=== PATIENT | female | born 2000 | race Caucasian/White ===

== ENCOUNTER 2023-06-17 17:43 | Emergency (ER) | payer MEDICAID, SELFPAY ==
[2023-06-17 17:44] VITALS: BP 174/92; PULSE 106; RESP 26; TEMP 36.4; O2SAT 99; BMI 52.3
[2023-06-17 17:53] VITALS: PULSE 101; RESP 23
--- NOTE | 2023-06-17 17:55 | ECG_ITS ---
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
--- NOTE | 2023-06-17 17:57 | ED.PSYCH1 ---
HPI - Psych General Chief Complaint: Psychiatric Symptoms Stated Complaint: Suicidal Time Seen by Provider: 06/17/23 17:51 Source: Reports patient and caregiver Mode of arrival: ambulance Limitations: Reports no limitations History of Present Illness HPI Narrative: patient sent from a long-term after she told staff that she is suicidal. Her plan is to slit my throat and cut myself . She cannot tell me what set these feelings off. During the interview she also said that she had thoughts of hurting her roommate. She denied injuring herself or others and did not take excessive meds. She sees [facility] for her psychiatric needs. No recent injury or illness. [facility] Social History Smoking status: Never smoker Exam Narrative Exam Narrative: Nurses notes and vital signs reviewed and patient is not hypoxic. afebrile General: Well-appearing and in no apparent distress. Skin: Warm, dry, no pallor noted. No rash. Head: Normocephalic, atraumatic. Neck: Supple, non-tender. Eye: Pupils are equal, round and EOMI. No scleral icterus. Ears, Nose, Mouth, and Throat: Oral mucosa is moist, no facial injury Cardiovascular: Regular Rate and Rhythm without murmur, gallop or rub. Respiratory: No accessory muscle use or respiratory distress. Lungs are clear to auscultation, no wheezing, rales or rhonchi Back: No midline thoracic or lumbar vertebral tenderness. No CVA tenderness Musculoskeletal: normal ROM, no calf or popliteal tenderness, no lower extremity edema/swelling GI: Abdomen is soft, non-distended. Normal bowel sounds. No tenderness to palpation. No rebound, guarding, or rigidity noted. Neurological: A&O x4. No cranial nerve dysfunction observed. No truncal ataxia. Moves all extremities. Sensation intact. Psychiatric: Cooperative and interactive. Normal mood and affect. Constitutional Vital Signs, click to edit/add: Last Vital Signs Temp 97.6 F 06/17/23 17:44 Pulse 106 H 06/17/23 17:44 Resp 26 H 06/17/23 17:44 BP 174/92 H 06/17/23 17:44 Pulse Ox 99 06/17/23 17:44 O2 Del Method Room Air 06/17/23 17:44 Course Vital Signs Vital signs: Vital Signs Temperature 97.6 F 06/17/23 17:44 Pulse Rate 106 H 06/17/23 17:44 Respiratory Rate 26 H 06/17/23 17:44 Blood Pressure 174/92 H 06/17/23 17:44 Pulse Oximetry 99 06/17/23 17:44 Oxygen Delivery Method Room Air 06/17/23 17:44 Temperature 97.6 F 06/17/23 17:44 Pulse Rate 106 H 06/17/23 17:44 Respiratory Rate 26 H 06/17/23 17:44 Blood Pressure 174/92 H 06/17/23 17:44 Pulse Oximetry 99 06/17/23 17:44 Oxygen Delivery Method Room Air 06/17/23 17:44 MDM - Psych MDM Narrative Medical decision making narrative: blood and urine obtained and sent for testing, including , ethanol, acetaminophen and salicylate. EKG unremarkable. all test results were unremarkable including CBC, CMP, urinalysis, ethanol, sent medicine and salicylate levels. The patient is medically cleared for psychiatric evaluation. The emergency Department nurse, Alicia Martínez, contacted mental health partners and began the process of getting the patient evaluated from a psychiatric standpoint and admitted if necessary. The patient was signed out to Dr. Galan at 7 PM shift change with disposition pending. Lab Data Attestation: I reviewed the patient's lab results. Labs: Lab Results 06/17/23 06/17/23 Range/Units 17:52 18:16 WBC 12.0 H (4.0-11.0) 10^3/uL RBC 5.00 (4.20-5.40) 10^6/uL Hgb 14.4 (12.0-16.0) g/dL Hct 43.1 (36.0-48.0) % MCV 86.2 (81.0-99.0) fL MCH 28.8 (26.7-34.0) pg MCHC 33.4 (29.9-35.2) g/dL RDW 12.8 (11.0-15.0) % Plt Count 271 (150-450) 10^3/uL MPV 9.5 (9.5-13.5) fL Neut % (Auto) 55.8 (43.0-75.0) % Lymph % (Auto) 33.4 (20.5-60.0) % Martin % (Auto) 5.9 (1.7-12.0) % Eos % (Auto) 4.3 (0.9-7.0) % Baso % (Auto) 0.4 (0.2-2.0) % Neut # (Auto) 6.7 H (1.4-6.5) 10^3/uL Lymph # (Auto) 4.0 H (1.2-3.8) 10^3/uL Martin # (Auto) 0.7 (0.3-0.8) 10^3/uL Eos # (Auto) 0.5 (0.0-0.7) 10^3/uL Baso # (Auto) 0.1 (0.0-0.1) 10^3/uL Abs Immat Gran (auto) 0.02 (0.00-0.03) 10^3/uL Imm/Tot Granulo (auto) 0.2 (0.0-0.5) % Sodium 141 (136-145) mmol/L Potassium 3.9 (3.5-5.1) mmol/L Chloride 106 (98-107) mmol/L Carbon Dioxide 22.8 (21.0-32.0) mmol/L Anion Gap 16.1 BUN 16.0 (7.0-18.0) mg/dL Creatinine 0.98 (0.55-1.02) mg/dL Est GFR ( Amer) >60 (>=60) Est GFR (Non-Af Amer) >60 (>=60) BUN/Creatinine Ratio 16.3 Glucose 134 H (74-106) mg/dL Calcium 8.5 (8.5-10.1) mg/dL Urine Color Yellow (YELLOW) Urine Clarity Clear (CLEAR) Urine pH 6.0 (5.0-9.0) Ur Specific [place] >=1.030 A (1.005-1.025) Urine Protein Negative (NEG/TRACE) mg/dL Urine Glucose (UA) Negative (NEGATIVE) mg/dL Urine Ketones Trace A (NEGATIVE) mg/dL Urine Occult Blood Negative (NEGATIVE) Urine Nitrite Negative (NEGATIVE) Urine Bilirubin Negative (NEGATIVE) Urine Urobilinogen 1.0 (0.2-1.0) EU/dL Ur Leukocyte Esterase Negative (NEGATIVE) Salicylates <2.8 (<=19.9) mg/dL Acetaminophen <2.0 L (10.0-30.0) ug/mL Ethanol Quant <3 mg/dL ECG Data Interpretation: EKG interpretation: Emergency Department physician interpretation. Normal sinus rhythm at 101bpm. Normal axis, normal intervals and no ST segment elevation or depression. Discharge Plan Discharge Chief Complaint: Psychiatric Symptoms Clinical Impression: Suicidal ideation Patient Disposition: Still a Patient Referrals: Physician,Non-Staff, MD [Primary Care Provider] - 1 week
[2023-06-17 18:05] LABS: Bilirubin Urine NEGATIVE (NEGATIVE); Blood Urine NEGATIVE (NEGATIVE); Clarity Urine CLEAR (CLEAR); Color Urine YELLOW (YELLOW); Glucose Urine UA NEGATIVE (NEGATIVE); Ketones Urine TRACE mg/dL (NEGATIVE); Leukocyte Esterase Urine NEGATIVE (NEGATIVE); Nitrite Urine NEGATIVE (NEGATIVE); Protein Urine NEGATIVE (NEG/TRACE); Specific Gravity Urine >=1.030 (1.005-1.025); Urine Microscopic Indicated NO
[2023-06-17 18:21] LABS: Basophils Absolute Auto 0.1 10^3/uL (0.0-0.1); Basophils Percent Auto 0.4 % (0.2-2.0); Eosinophils Absolute Auto 0.5 10^3/uL (0.0-0.7); Eosinophils Percent Auto 4.3 % (0.9-7.0); Hematocrit 43.1 % (36.0-48.0); Hemoglobin 14.4 g/dL (12.0-16.0); Immature Granulocytes Abs Auto 0.02 10^3/uL (0.00-0.03); Immature Granulocytes Pct Auto 0.2 % (0.0-0.5); Lymphocytes Percent Auto 33.4 % (20.5-60.0); Mean Corpuscular HGB Conc 33.4 g/dL (29.9-35.2); Mean Corpuscular Hemoglobin 28.8 pg (26.7-34.0); Mean Corpuscular Volume 86.2 fL (81.0-99.0); Mean Platelet Volume 9.5 fL (9.5-13.5); Monocytes Absolute Auto 0.7 10^3/uL (0.3-0.8); Monocytes Percent Auto 5.9 % (1.7-12.0); Neutrophils Absolute Auto 6.7 10^3/uL (1.4-6.5); Neutrophils Percent Auto 55.8 % (43.0-75.0); Platelet Count 271 10^3/uL (150-450); Red Cell Distribution Width 12.8 % (11.0-15.0)
[2023-06-17 18:36] LABS: Anion Gap 16.1; BUN Creatinine Ratio 16.3; Calcium 8.5 mg/dL (8.5-10.1); Carbon Dioxide 22.8 mmol/L (21.0-32.0); Chloride 106 mmol/L (98-107); Estimated GFR (African America >60 (>=60); Estimated GFR (Non-African Ame >60 (>=60); Ethanol <3 mg/dL; Glucose 134 mg/dL (74-106); Potassium 3.9 mmol/L (3.5-5.1); Salicylate <2.8 mg/dL (<=19.9); Sodium 141 mmol/L (136-145)
[2023-06-17 18:40] LABS: Acetaminophen <2.0 ug/mL (10.0-30.0)
--- NOTE | 2023-06-17 19:52 | PC.NURSE ---
Pt currently on the phone with Nabila from the [facility] as well as her grandma Pt is crying and stating she doesn't want to go home
[2023-06-17 21:28] VITALS: BP 123/87; O2SAT 96
[2023-06-17 21:30] VITALS: BP 123/87; PULSE 95; RESP 16; TEMP 36.6; O2SAT 96
--- NOTE | 2023-06-18 01:22 | PC.NURSE ---
[facility] did not accept pt This nurse called back to [facility]- they will not try to find other placement for her until morning
[2023-06-18 06:27] VITALS: BP 103/57; O2SAT 95
[2023-06-18 06:36] VITALS: BP 103/57; PULSE 95; O2SAT 98
[2023-06-18 09:09] VITALS: O2SAT 97
[2023-06-18 09:10] VITALS: BP 114/78; O2SAT 93
== END 2023-06-18 10:20 ==
PROVIDERS: Emergency Medicine; Emergency Provider Internal Medicine
DX: R45.851 Suicidal ideations (principal)
CPT/HCPCS: 36415; 80048; 80179; 80320; 80329; 81003; 85025; 93005; 99285

== ENCOUNTER 2023-07-11 16:34 | Emergency (ER) | payer MEDICAID, SELFPAY ==
[2023-07-11 16:37] VITALS: BP 143/98; PULSE 108; RESP 20; TEMP 36.6; O2SAT 97; BMI 52.3
--- NOTE | 2023-07-11 16:39 | ECG_ITS ---
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
--- NOTE | 2023-07-11 16:47 | ED.PSYCH1 ---
HPI - Psych General Chief Complaint: Psychiatric Symptoms Stated Complaint: Suicidal Time Seen by Provider: 07/11/23 16:38 Source: Reports patient Mode of arrival: ambulance Limitations: Reports no limitations History of Present Illness HPI Narrative: 23-year-old female presented because she states she felt suicidal since last night. She wanted to take a knife and cut herself. She has been taking her psychiatric medications but didn't take anything today. She doesn't have any physical complaints. Denies headache fever cough chest pain or vomiting. She has a recurrent history of this issue. Related Data Home Medications Medication Instructions Recorded Confirmed acetaminophen 325 mg capsule 650 mg PO Q4H PRN pain 07/11/23 07/11/23 atorvastatin 10 mg tablet 10 mg PO DAILY 07/11/23 07/11/23 buspirone 10 mg tablet 10 mg PO BID 07/11/23 07/11/23 docusate sodium 100 mg capsule 100 mg PO DAILY 07/11/23 07/11/23 (Col-Rite) levothyroxine 50 mcg tablet 50 mcg PO DAILY 07/11/23 07/11/23 loperamide 2 mg capsule 4 mg PO Q6H PRN loose stool 07/11/23 07/11/23 (Anti-Diarrheal (loperamide)) lurasidone 120 mg tablet 120 mg PO QDAY 07/11/23 07/11/23 medroxyprogesterone 150 mg/mL 150 mg IM .every 90 days 07/11/23 07/11/23 intramuscular suspension metformin 500 mg tablet 500 mg PO BID 07/11/23 07/11/23 omeprazole 20 mg capsule,delayed 20 mg PO DAILY 07/11/23 07/11/23 release paliperidone 3 mg tablet,extended 3 mg PO Q24H 07/11/23 07/11/23 release 24 hr paliperidone palmitate 156 mg/mL 156 mg IM Q28D 07/11/23 07/11/23 intramuscular syringe (Invega Sustenna) prazosin 2 mg capsule 2 mg PO .qhs 07/11/23 07/11/23 sertraline 100 mg tablet 150 mg PO Q24H 07/11/23 07/11/23 Allergies Allergy/AdvReac Type Severity Reaction Status Date / Time No Known Drug Allergies Allergy Verified 06/18/23 07:10 Review of Systems ROS Narrative A ten point review of systems is negative except as noted above. [facility] Social History Smoking status: Never smoker Exam Narrative Exam Narrative: Nurses note and vital signs reviewed and patient is not hypoxic. General: The patient appears well and in no apparent distress. Patient is resting comfortably on cart. Skin: Warm, dry, no pallor noted. There is no rash noted. Head: Normocephalic, atraumatic Eye: Normal conjunctiva, no drainage Ears, Nose, Mouth, and Throat: oral mucosa is moist. Cardiovascular: Regular Rate and Rhythm Respiratory: Patient is in no distress, no accessory muscle use, lungs are clear to auscultation, no wheezing, rales or rhonchi Back: non-tender GI: no tenderness to palpation, no masses appreciated. No rebound, guarding, or rigidity noted. Musculoskeletal: The patient has no evidence of calf tenderness, no pitting edema, symmetrical pulses noted bilaterally Neurological: A&O, normal speech Psychiatric: Cooperative, smiling and interactive Constitutional Vital Signs, click to edit/add: Last Vital Signs Temp 98 F 07/11/23 16:37 Pulse 108 H 07/11/23 16:37 Resp 20 07/11/23 16:37 BP 143/98 H 07/11/23 16:37 Pulse Ox 97 07/11/23 16:37 O2 Del Method Room Air 07/11/23 16:37 Course Vital Signs Vital signs: Vital Signs Temperature 98 F 07/11/23 16:37 Pulse Rate 108 H 07/11/23 16:37 Respiratory Rate 20 07/11/23 16:37 Blood Pressure 143/98 H 07/11/23 16:37 Pulse Oximetry 97 07/11/23 16:37 Oxygen Delivery Method Room Air 07/11/23 16:37 Temperature 98 F 07/11/23 16:37 Pulse Rate 108 H 07/11/23 16:37 Respiratory Rate 20 07/11/23 16:37 Blood Pressure 143/98 H 07/11/23 16:37 Pulse Oximetry 97 07/11/23 16:37 Oxygen Delivery Method Room Air 07/11/23 16:37 MDM - Psych MDM Narrative Medical decision making narrative: mental health services has been contacted and they are in process of evaluation. The patient is signed out to Dr. Orozco. Lab Data Attestation: I reviewed the patient's lab results. Labs: Lab Results 07/11/23 07/11/23 Range/Units 17:00 17:28 WBC 11.7 H (4.0-11.0) 10^3/uL RBC 4.79 (4.20-5.40) 10^6/uL Hgb 13.5 (12.0-16.0) g/dL Hct 40.9 (36.0-48.0) % MCV 85.4 (81.0-99.0) fL MCH 28.2 (26.7-34.0) pg MCHC 33.0 (29.9-35.2) g/dL RDW 12.6 (11.0-15.0) % Plt Count 248 (150-450) 10^3/uL MPV 9.5 (9.5-13.5) fL Neut % (Auto) 56.0 (43.0-75.0) % Lymph % (Auto) 35.0 (20.5-60.0) % [place] % (Auto) 6.0 (1.7-12.0) % Eos % (Auto) 2.2 (0.9-7.0) % Baso % (Auto) 0.5 (0.2-2.0) % Neut # (Auto) 6.6 H (1.4-6.5) 10^3/uL Lymph # (Auto) 4.1 H (1.2-3.8) 10^3/uL [place] # (Auto) 0.7 (0.3-0.8) 10^3/uL Eos # (Auto) 0.3 (0.0-0.7) 10^3/uL Baso # (Auto) 0.1 (0.0-0.1) 10^3/uL Abs Immat Gran (auto) 0.04 H (0.00-0.03) 10^3/uL Imm/Tot Granulo (auto) 0.3 (0.0-0.5) % Sodium 137 (136-145) mmol/L Potassium 3.6 (3.5-5.1) mmol/L Chloride 103 (98-107) mmol/L Carbon Dioxide 21.9 (21.0-32.0) mmol/L Anion Gap 15.7 BUN 13.0 (7.0-18.0) mg/dL Creatinine 0.80 (0.55-1.02) mg/dL Est GFR ( Amer) >60 (>=60) Est GFR (Non-Af Amer) >60 (>=60) BUN/Creatinine Ratio 16.2 Glucose 120 H (74-106) mg/dL Calcium 8.5 (8.5-10.1) mg/dL Serum HCG, Qual Negative (NEGATIVE) Urine Color Lt. yellow (YELLOW) Urine Clarity Clear (CLEAR) Urine pH 6.0 (5.0-9.0) Ur Specific [place] >=1.030 A (1.005-1.025) Urine Protein Negative (NEG/TRACE) mg/dL Urine Glucose (UA) Negative (NEGATIVE) mg/dL Urine Ketones Negative (NEGATIVE) mg/dL Urine Occult Blood Negative (NEGATIVE) Urine Nitrite Negative (NEGATIVE) Urine Bilirubin Negative (NEGATIVE) Urine Urobilinogen 0.2 (0.2-1.0) EU/dL Ur Leukocyte Esterase Negative (NEGATIVE) Urine RBC 0-2 (0-2) #/HPF Urine WBC None seen (NONE SEEN) #/HPF Ur Squamous Epith Cells Few A (NONE/RARE) #/LPF Urine Crystals None seen (None Seen) #/HPF Urine Bacteria Trace A (NONE SEEN) #/HPF Urine Casts None seen (NONE SEEN) #/LPF Urine Mucus None seen (NONE SEEN) Salicylates <2.8 (<=19.9) mg/dL Urine Opiates Screen Negative (NEGATIVE) Ur Buprenorphine Scrn Negative (NEGATIVE) Ur Oxycodone Screen Negative (NEGATIVE) Urine Methadone Screen Negative (NEGATIVE) Ur Propoxyphene Screen Negative (NEGATIVE) Acetaminophen <2.0 L (10.0-30.0) ug/mL Ur Barbiturates Screen Negative (NEGATIVE) U Tricyclic Antidepress Negative (NEGATIVE) Ur Phencyclidine Scrn Negative (NEGATIVE) Ur Amphetamines Screen Negative (NEGATIVE) U Methamphetamines Scrn Negative (NEGATIVE) U Benzodiazepines Scrn Negative (NEGATIVE) Urine Cocaine Screen Negative (NEGATIVE) U Cannabinoids Screen Negative (NEGATIVE) Ethanol Quant <3 mg/dL Discharge Plan Discharge Patient Disposition: Still a Patient
[2023-07-11 17:00] VITALS: PULSE 103
[2023-07-11 17:39] LABS: Basophils Absolute Auto 0.1 10^3/uL (0.0-0.1); Basophils Percent Auto 0.5 % (0.2-2.0); Eosinophils Absolute Auto 0.3 10^3/uL (0.0-0.7); Eosinophils Percent Auto 2.2 % (0.9-7.0); Hematocrit 40.9 % (36.0-48.0); Hemoglobin 13.5 g/dL (12.0-16.0); Immature Granulocytes Abs Auto 0.04 10^3/uL (0.00-0.03); Immature Granulocytes Pct Auto 0.3 % (0.0-0.5); Lymphocytes Absolute Auto 4.1 10^3/uL (1.2-3.8); Mean Corpuscular Hemoglobin 28.2 pg (26.7-34.0); Mean Corpuscular Volume 85.4 fL (81.0-99.0); Mean Platelet Volume 9.5 fL (9.5-13.5); Monocytes Absolute Auto 0.7 10^3/uL (0.3-0.8); Neutrophils Absolute Auto 6.6 10^3/uL (1.4-6.5); Platelet Count 248 10^3/uL (150-450); Red Blood Count 4.79 10^6/uL (4.20-5.40); Red Cell Distribution Width 12.6 % (11.0-15.0); White Blood Count 11.7 10^3/uL (4.0-11.0)
[2023-07-11 17:42] LABS: Bilirubin Urine NEGATIVE (NEGATIVE); Blood Urine NEGATIVE (NEGATIVE); Clarity Urine CLEAR (CLEAR); Color Urine LT. YELLOW (YELLOW); Glucose Urine UA NEGATIVE (NEGATIVE); Ketones Urine NEGATIVE (NEGATIVE); Leukocyte Esterase Urine NEGATIVE (NEGATIVE); Nitrite Urine NEGATIVE (NEGATIVE); Protein Urine NEGATIVE (NEG/TRACE); Specific Gravity Urine >=1.030 (1.005-1.025); Urobilinogen Urine 0.2 EU/dL (0.2-1.0)
[2023-07-11 17:50] LABS: Anion Gap 15.7; BUN Creatinine Ratio 16.2; Calcium 8.5 mg/dL (8.5-10.1); Carbon Dioxide 21.9 mmol/L (21.0-32.0); Chloride 103 mmol/L (98-107); Estimated GFR (African America >60 (>=60); Estimated GFR (Non-African Ame >60 (>=60); Glucose 120 mg/dL (74-106); Potassium 3.6 mmol/L (3.5-5.1); Sodium 137 mmol/L (136-145)
[2023-07-11 17:56] LABS: WBC Urine NONE SEEN #/HPF (NONE SEEN)
[2023-07-11 17:57] LABS: Amphetamine Screen Urine NEGATIVE (NEGATIVE); Bacteria Urine TRACE #/HPF (NONE SEEN); Barbiturates Screen Urine NEGATIVE (NEGATIVE); Benzodiazepines Screen Urine NEGATIVE (NEGATIVE); Buprenorphine Screen Urine NEGATIVE (NEGATIVE); Cannabinoid Screen Urine NEGATIVE (NEGATIVE); Cast Seen? NONE SEEN #/LPF (NONE SEEN); Cocaine Screen Urine NEGATIVE (NEGATIVE); Crystals Seen? None Seen #/HPF (None Seen); Methadone Screen Urine NEGATIVE (NEGATIVE); Methamphetamines Screen Urine NEGATIVE (NEGATIVE); Mucus Urine NONE SEEN (NONE SEEN); Opiate Screen Urine NEGATIVE (NEGATIVE); Oxycodone Screen Urine NEGATIVE (NEGATIVE); Phencyclidine Screen Urine NEGATIVE (NEGATIVE); RBC Urine 0-2 #/HPF (0-2); Squamous Epithelial Cell Urine FEW #/LPF (NONE/RARE); Tricyclic Antidepressant Urine NEGATIVE (NEGATIVE)
[2023-07-11 18:09] LABS: Ethanol <3 mg/dL; Salicylate <2.8 mg/dL (<=19.9)
[2023-07-11 18:11] LABS: Acetaminophen <2.0 ug/mL (10.0-30.0)
[2023-07-11 18:34] LABS: HCG Qualitative NEGATIVE (NEGATIVE)
[2023-07-11 19:12] VITALS: BP 115/68; PULSE 94; RESP 16; TEMP 36.5; O2SAT 98
[2023-07-11 22:00] VITALS: BP 145/85; PULSE 95; RESP 15; TEMP 37.1; O2SAT 96
== END 2023-07-11 22:02 ==
PROVIDERS: Emergency Medicine; Emergency Provider Emergency Medicine
DX: R45.851 Suicidal ideations (principal)
CPT/HCPCS: 36415; 80048; 80179; 80307; 80320; 80329; 81001; 84703; 85025; 93005; 99285

== ENCOUNTER 2023-09-13 17:30 | Emergency (ER) | payer MEDICAID, SELFPAY ==
--- NOTE | 2023-09-13 17:33 | ECG_ITS ---
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
--- NOTE | 2023-09-13 17:41 | ED.PSYCH1 ---
HPI - Psych General Chief Complaint: Psychiatric Symptoms Stated Complaint: SUICIDE Time Seen by Provider: 09/13/23 17:32 Source: Reports patient and EMR Mode of arrival: ambulance History of Present Illness HPI Narrative: Patient is a 23-year-old female with a history of autism, psych dysfunction who presents to the ER by ambulance from the assisted living where she is a resident for suicidal thoughts. Patient states she was hospitalized in an inpatient psychiatric facility approximately 2 months ago. She states she has thoughts that she would kill herself with a knife. She states she has had vomiting and diarrhea over the last day. No fevers or upper respiratory symptoms. She is not concerned for . She denies any ingestion of drugs or alcohol today. She has a history of previous cutting but no recent cutting in the last day. No medications taken prior to arrival. She is calm and cooperative at initial interview. Related Data Home Medications Medication Instructions Recorded Confirmed acetaminophen 325 mg capsule 650 mg PO Q4H PRN pain 07/11/23 09/13/23 atorvastatin 10 mg tablet 10 mg PO DAILY 07/11/23 09/13/23 buspirone 10 mg tablet 10 mg PO BID 07/11/23 09/13/23 docusate sodium 100 mg capsule 100 mg PO DAILY 07/11/23 09/13/23 (Col-Rite) levothyroxine 50 mcg tablet 50 mcg PO DAILY 07/11/23 09/13/23 loperamide 2 mg capsule 4 mg PO Q6H PRN loose stool 07/11/23 09/13/23 (Anti-Diarrheal (loperamide)) lurasidone 120 mg tablet 120 mg PO QDAY 07/11/23 09/13/23 medroxyprogesterone 150 mg/mL 150 mg IM .every 90 days 07/11/23 09/13/23 intramuscular suspension metformin 500 mg tablet 500 mg PO BID 07/11/23 09/13/23 omeprazole 20 mg capsule,delayed 20 mg PO DAILY 07/11/23 09/13/23 release paliperidone 3 mg tablet,extended 3 mg PO Q24H 07/11/23 09/13/23 release 24 hr paliperidone palmitate 156 mg/mL 156 mg IM Q28D 07/11/23 09/13/23 intramuscular syringe (Invega Sustenna) prazosin 2 mg capsule 2 mg PO .qhs 07/11/23 09/13/23 sertraline 100 mg tablet 150 mg PO Q24H 07/11/23 09/13/23 Allergies Allergy/AdvReac Type Severity Reaction Status Date / Time No Known Drug Allergies Allergy Verified 06/18/23 07:10 Review of Systems ROS Constitutional Denies: fever or chills Ears, nose, mouth, and throat Denies: throat pain or nasal congestion Cardiovascular Denies: chest pain Respiratory Denies: shortness of breath Gastrointestinal Reports: nausea, vomiting and diarrhea; Denies: abdominal pain Genitourinary Denies: painful urination Musculoskeletal Denies: back pain Integumentary/Breast Denies: rash Neurological Denies: headache PFSH PFSH Social History Smoking status: Never smoker Exam Narrative Exam Narrative: Gen.: Awake, alert, in no distress Head: Normocephalic, atraumatic ENT: Moist mucous membranes Respiratory: No respiratory distress, lungs clear bilaterally Cardio: Regular rate and rhythm Gastrointestinal: Abdomen is soft, nondistended and nontender to palpation Extremities: Moves extremities equally, no injuries noted; well-healed superficial lacerations to the bilateral volar wrists, no recent or fresh abrasions or lacerations Psych: Normal mood and affect Neuro: No focal neuro deficit Skin: Warm, dry, intact Constitutional Vital Signs, click to edit/add: Last Vital Signs Temp 98 F 09/13/23 17:42 Pulse 115 H 09/13/23 17:42 Resp 20 09/13/23 17:42 BP 143/89 H 09/13/23 17:42 Pulse Ox 96 09/13/23 17:42 O2 Del Method Room Air 09/13/23 17:42 Course Vital Signs Vital signs: Vital Signs Temperature 98 F 09/13/23 17:42 Pulse Rate 115 H 09/13/23 17:42 Respiratory Rate 20 09/13/23 17:42 Blood Pressure 143/89 H 09/13/23 17:42 Pulse Oximetry 96 09/13/23 17:42 Oxygen Delivery Method Room Air 09/13/23 17:42 Temperature 98 F 09/13/23 17:42 Pulse Rate 115 H 09/13/23 17:42 Respiratory Rate 20 09/13/23 17:42 Blood Pressure 143/89 H 09/13/23 17:42 Pulse Oximetry 96 09/13/23 17:42 Oxygen Delivery Method Room Air 09/13/23 17:42 MDM - Psych MDM Narrative Medical decision making narrative: Patient calm and cooperative in the ER, lab studies, COVID test, urine specimen are all unremarkable. Patient medicated with Zofran for history of vomiting although she had no episodes of vomiting or diarrhea in the ER. She was evaluated by mental health counseling services over the phone. She revealed that the reason she was feeling suicidal is because she did not want to take her weight loss medication. She is not found to pose an acute suicidal or homicidal risk and is discharged back to her residence to follow-up with counseling services as an outpatient. Return to the ER if symptoms change or worsen Medical Records Attestation: I reviewed the patient's medical records. Lab Data Attestation: I reviewed the patient's lab results. Labs: Lab Results 09/13/23 09/13/23 09/13/23 Range/Units 17:59 18:09 18:33 WBC 9.5 (4.0-11.0) 10^3/uL RBC 4.90 (4.20-5.40) 10^6/uL Hgb 13.5 (12.0-16.0) g/dL Hct 41.7 (36.0-48.0) % MCV 85.1 (81.0-99.0) fL MCH 27.6 (26.7-34.0) pg MCHC 32.4 (29.9-35.2) g/dL RDW 12.4 (11.0-15.0) % Plt Count 262 (150-450) 10^3/uL MPV 9.4 L (9.5-13.5) fL Neut % (Auto) 51.5 (43.0-75.0) % Lymph % (Auto) 35.8 (20.5-60.0) % [place] % (Auto) 6.4 (1.7-12.0) % Eos % (Auto) 5.6 (0.9-7.0) % Baso % (Auto) 0.5 (0.2-2.0) % Neut # (Auto) 4.9 (1.4-6.5) 10^3/uL Lymph # (Auto) 3.4 (1.2-3.8) 10^3/uL [place] # (Auto) 0.6 (0.3-0.8) 10^3/uL Eos # (Auto) 0.5 (0.0-0.7) 10^3/uL Baso # (Auto) 0.1 (0.0-0.1) 10^3/uL Abs Immat Gran (auto) 0.02 (0.00-0.03) 10^3/uL Imm/Tot Granulo (auto) 0.2 (0.0-0.5) % Sodium 137 (136-145) mmol/L Potassium 3.7 (3.5-5.1) mmol/L Chloride 103 (98-107) mmol/L Carbon Dioxide 24.6 (21.0-32.0) mmol/L Anion Gap 13.1 BUN 15.0 (7.0-18.0) mg/dL Creatinine 0.89 (0.55-1.02) mg/dL Est GFR ( Amer) >60 (>=60) Est GFR (Non-Af Amer) >60 (>=60) BUN/Creatinine Ratio 16.9 Glucose 119 H (74-106) mg/dL Calcium 8.8 (8.5-10.1) mg/dL Total Bilirubin 0.2 (0.2-1.0) mg/dL AST 15 (15-37) U/L ALT 39 (14-59) U/L Alkaline Phosphatase 78 (46-116) U/L Total Protein 7.8 (6.4-8.2) g/dL Albumin 3.6 (3.4-5.0) g/dL Globulin 4.2 g/dL Albumin/Globulin Ratio 0.9 Serum HCG, Qual Negative (NEGATIVE) Urine Color Lt. yellow (YELLOW) Urine Clarity Clear (CLEAR) Urine pH 6.0 (5.0-9.0) Ur Specific [place] >=1.030 A (1.005-1.025) Urine Protein Negative (NEG/TRACE) mg/dL Urine Glucose (UA) Negative (NEGATIVE) mg/dL Urine Ketones Negative (NEGATIVE) mg/dL Urine Occult Blood Negative (NEGATIVE) Urine Nitrite Negative (NEGATIVE) Urine Bilirubin Negative (NEGATIVE) Urine Urobilinogen 0.2 (0.2-1.0) EU/dL Ur Leukocyte Esterase Negative (NEGATIVE) Salicylates <2.8 (<=19.9) mg/dL Urine Opiates Screen Negative (NEGATIVE) Ur Buprenorphine Scrn Negative (NEGATIVE) Ur Oxycodone Screen Negative (NEGATIVE) Urine Methadone Screen Negative (NEGATIVE) Acetaminophen <2.0 L (10.0-30.0) ug/mL Ur Barbiturates Screen Negative (NEGATIVE) U Tricyclic Antidepress Negative (NEGATIVE) Ur Phencyclidine Scrn Negative (NEGATIVE) Ur Amphetamines Screen Negative (NEGATIVE) U Methamphetamines Scrn Negative (NEGATIVE) U Benzodiazepines Scrn Negative (NEGATIVE) Urine Cocaine Screen Negative (NEGATIVE) U Cannabinoids Screen Negative (NEGATIVE) Ethanol Quant <3 mg/dL SARS-CoV-2 (PCR) Negative (NEGATIVE) ECG Data Attestation: I personally reviewed and interpreted this ECG as follows: Discharge Plan Discharge Chief Complaint: Psychiatric Symptoms Clinical Impression: Depression Patient Disposition: Home, Self-Care Time of Disposition Decision: 19:56 Condition: Good Prescriptions / Home Meds: No Action atorvastatin 10 mg tablet 10 mg PO DAILY docusate sodium [Col-Rite] 100 mg capsule 100 mg PO DAILY levothyroxine 50 mcg tablet 50 mcg PO DAILY lurasidone 120 mg tablet 120 mg PO QDAY medroxyprogesterone 150 mg/mL suspension 150 mg IM .every 90 days metformin 500 mg tablet 500 mg PO BID loperamide [Anti-Diarrheal (loperamide)] 2 mg capsule 4 mg PO Q6H PRN (Reason: loose stool) acetaminophen 325 mg capsule 650 mg PO Q4H PRN (Reason: pain) omeprazole 20 mg capsule,delayed release(DR/EC) 20 mg PO DAILY paliperidone 3 mg tablet extended release 24hr 3 mg PO Q24H prazosin 2 mg capsule 2 mg PO .qhs sertraline 100 mg tablet 150 mg PO Q24H buspirone 10 mg tablet 10 mg PO BID Invega Sustenna 156 mg/mL syringe 156 mg IM Q28D Patient Comments: due 07/19 Instructions: Depression (ED) Stand Alone Forms: Portal Instructions Referrals: Physician,Non-Staff, MD [Primary Care Provider] - 1 week
[2023-09-13 17:42] VITALS: BP 143/89; PULSE 115; RESP 20; TEMP 36.6; O2SAT 96; BMI 55.0
[2023-09-13] MEDS: ONDANSETRON 4 MG RAPDIS TABLET SL (18:06)
[2023-09-13 18:12] LABS: Basophils Absolute Auto 0.1 10^3/uL (0.0-0.1); Basophils Percent Auto 0.5 % (0.2-2.0); Eosinophils Absolute Auto 0.5 10^3/uL (0.0-0.7); Eosinophils Percent Auto 5.6 % (0.9-7.0); Hematocrit 41.7 % (36.0-48.0); Hemoglobin 13.5 g/dL (12.0-16.0); Immature Granulocytes Abs Auto 0.02 10^3/uL (0.00-0.03); Immature Granulocytes Pct Auto 0.2 % (0.0-0.5); Lymphocytes Absolute Auto 3.4 10^3/uL (1.2-3.8); Lymphocytes Percent Auto 35.8 % (20.5-60.0); Mean Corpuscular HGB Conc 32.4 g/dL (29.9-35.2); Mean Corpuscular Hemoglobin 27.6 pg (26.7-34.0); Mean Corpuscular Volume 85.1 fL (81.0-99.0); Mean Platelet Volume 9.4 fL (9.5-13.5); Monocytes Absolute Auto 0.6 10^3/uL (0.3-0.8); Monocytes Percent Auto 6.4 % (1.7-12.0); Neutrophils Absolute Auto 4.9 10^3/uL (1.4-6.5); Neutrophils Percent Auto 51.5 % (43.0-75.0); Platelet Count 262 10^3/uL (150-450); Red Cell Distribution Width 12.4 % (11.0-15.0); White Blood Count 9.5 10^3/uL (4.0-11.0)
[2023-09-13 18:23] LABS: HCG Qualitative NEGATIVE (NEGATIVE)
[2023-09-13 18:25] LABS: Alanine Aminotransferase 39 U/L (14-59); Albumin Globulin Ratio 0.9; Albumin Level 3.6 g/dL (3.4-5.0); Alkaline Phosphatase 78 U/L (46-116); Anion Gap 13.1; Aspartate Amino Transferase 15 U/L (15-37); BUN Creatinine Ratio 16.9; Bilirubin Total 0.2 mg/dL (0.2-1.0); Calcium 8.8 mg/dL (8.5-10.1); Carbon Dioxide 24.6 mmol/L (21.0-32.0); Chloride 103 mmol/L (98-107); Estimated GFR (African America >60 (>=60); Estimated GFR (Non-African Ame >60 (>=60); Globulin 4.2 g/dL; Glucose 119 mg/dL (74-106); Potassium 3.7 mmol/L (3.5-5.1); Salicylate <2.8 mg/dL (<=19.9); Sodium 137 mmol/L (136-145); Total Protein 7.8 g/dL (6.4-8.2)
[2023-09-13 18:26] LABS: Acetaminophen <2.0 ug/mL (10.0-30.0)
[2023-09-13 18:50] LABS: Bilirubin Urine NEGATIVE (NEGATIVE); Blood Urine NEGATIVE (NEGATIVE); Clarity Urine CLEAR (CLEAR); Color Urine LT. YELLOW (YELLOW); Glucose Urine UA NEGATIVE (NEGATIVE); Ketones Urine NEGATIVE (NEGATIVE); Leukocyte Esterase Urine NEGATIVE (NEGATIVE); Nitrite Urine NEGATIVE (NEGATIVE); Protein Urine NEGATIVE (NEG/TRACE); Specific Gravity Urine >=1.030 (1.005-1.025); Urobilinogen Urine 0.2 EU/dL (0.2-1.0)
[2023-09-13 18:51] LABS: Ethanol <3 mg/dL
[2023-09-13 18:51] LABS: Urine Microscopic Indicated NO
[2023-09-13 18:52] LABS: Amphetamine Screen Urine NEGATIVE (NEGATIVE); Barbiturates Screen Urine NEGATIVE (NEGATIVE); Benzodiazepines Screen Urine NEGATIVE (NEGATIVE); Buprenorphine Screen Urine NEGATIVE (NEGATIVE); Cannabinoid Screen Urine NEGATIVE (NEGATIVE); Cocaine Screen Urine NEGATIVE (NEGATIVE); Methadone Screen Urine NEGATIVE (NEGATIVE); Methamphetamines Screen Urine NEGATIVE (NEGATIVE); Opiate Screen Urine NEGATIVE (NEGATIVE); Oxycodone Screen Urine NEGATIVE (NEGATIVE); Phencyclidine Screen Urine NEGATIVE (NEGATIVE); Tricyclic Antidepressant Urine NEGATIVE (NEGATIVE)
[2023-09-13 18:56] LABS: SARS-CoV-2 Ag NEGATIVE (NEGATIVE)
[2023-09-14 15:10] LABS: SARS-CoV-2 NAA NOT DETECTED (NOT DETECTE)
== END 2023-09-13 20:41 | disposition home or self-care (01) ==
PROVIDERS: Physician Assistant; Emergency Provider Emergency Medicine Emergency Medical Services
DX: F32.A Depression, unspecified (principal); F84.0 Autistic disorder; Z91.52 Personal history of nonsuicidal self-harm; Z79.899 Other long term (current) drug therapy; Z79.890 Hormone replacement therapy; Z79.84 Long term (current) use of oral hypoglycemic drugs; Z20.822 Contact with and (suspected) exposure to COVID-19
CPT/HCPCS: 36415; 80053; 80179; 80307; 80320; 80329; 81003; 84703; 85025; 87635; 87811; 93005; 99285

== ENCOUNTER 2023-10-02 18:51 | Emergency (ER) | payer MEDICAID, SELFPAY ==
[2023-10-02 18:54] VITALS: BP 162/88; PULSE 110; RESP 20; TEMP 36.7; O2SAT 95; BMI 54.7
--- OUTSIDE RECORDS SUMMARY | 2023-10-02 19:02 | XMS_ITS | CCD ---
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 Supervisor Open Pit Name Role Phone [place] Unavailable Unavailab le [place] Unavailable Unavailab le [place] Unavailable Unavailab le Ruth, Gabo R Unavailable Unavailable No Doctor Assigned, Nodr Unavailable Unavail able Ruth, Gabo R Unavailable Unavailable Ruth, Gabo R Unavailable Unavailable [place] Unavailable Unavailab le No Doctor Assigned, Nodr Unavailable Unavail able Rupinder, Leander V Unavailable Unavailable Marquard, Leander V Unavailable Unavailable Ruth, Gabo R Unavailable Unavailable No Doctor Assigned, Nodr Unavailable Unavail able Ivanauskas, Saulius Unavailable Unavailable Ivanauskas, Saulius Unavailable Unavailable No Doctor Assigned, Nodr Unavailable Unavail able [place] Unavailable Unavailab le [place], Adela March Unavailable Unavailab le No Doctor Assigned, Nodr Unavailable Unavail able Arrington, Pj Unavailable Unavailable Arrington, Pj Unavailable Unavailable Herberth, Ryan Unavailable Unavailable Herberth, Ryan Unavailable Unavailable Hajdari, Astrit H Unavailable Unavailable Hajdari, Astrit H Unavailable Unavailable Hajdari, Astrit H Unavailable Unavailable Hajdari, Astrit H Unavailable Unavailable Juan Luis, Barbara Unavailable Unavailable Aguilar, Berta F Unavailable Unavailable Aguilar, Berta F Unavailable Unavailable [place], Barbara Unavailable Unavailable Aguilar, Berta F Unavailable Unavailable Aguilar, Berta F Unavailable Unavailable [place], Barbara Unavailable Unavailable Herberth, Ryan Unavailable Unavailable Herberth, Ryan Unavailable Unavailable [place], Barbara Unavailable Unavailable Dena, Jamee Unavailable Unavailable Dena, Jamee Unavailable Unavailable Juan Luis, Barbara Unavailable Unavailable Dena, Jamee Unavailable Unavailable Dena, Jamee Unavailable Unavailable [place], Barbara Unavailable Unavailable [place], Barbara Unavailable Unavailable Aguilar, Berta F Unavailable Unavailable Aguilar, Berta F Unavailable Unavailable Juan Luis, Barbara Unavailable Unavailable Ching, Damon Unavailable Unavailable Ching, Damon Unavailable Unavailable [place], Barbara Unavailable Unavailable Herberth, Ryan Unavailable Unavailable [place], Ryan Unavailable Unavailable Juan Luis, Barbara Unavailable Unavailable Mack, Elsie S Unavailable Unavailable Katie Martinez M Unavailable Unavailable Juan Luis, Barbara Unavailable Unavailable Hajdari, Astrit H Unavailable Unavailable Hajdari, Astrit H Unavailable Unavailable LABBAD, JAKLEEN Unavailable Unavailable LABBAD, JAKLEEN Unavailable Unavailable [place], Barbara Unavailable Unavailable LABBAD, JAKLEEN Unavailable Unavailable LABBAD, JAKLEEN Unavailable Unavailable Juan Luis, Barbara Unavailable Unavailable LABBAD, JAKLEEN Unavailable Unavailable LABBAD, JAKLEEN Unavailable Unavailable LABBAD, JAKLEEN Unavailable Unavailable [place], Barbara Unavailable Unavailable Juan Luis, Barbara Unavailable Unavailable Hajdari, Astrit H Unavailable Unavailable Hajdari, Astrit H Unavailable Unavailable Juan Luis, Barbara Unavailable Unavailable GARDNER, KUL B Unavailable Unavailable GARDNER, KUL B Unavailable Unavailable Carolina Welch Attending Physician Unavailable Jay Gomez Primary Care Provider [phone] [facility] [place], DOCTOR Primary Care Unavailable DOV WEINSTEIN Admitting Unavailable DOV WEINSTEIN Attending Unavailable WILTON LEGER Consulting Unavailable DOV WEINSTEIN Consulting Unavailable GARLAPATI, KRISHNAIA C Admitting Unavailab becca PRIETO KRISHNAIA C Attending Unavailab becca MUSTAFA, DOCTOR Primary Care Unavailable SHAWAN, KRISHNAIA C Consulting Unavailab Jay Tang DO Primary Care Provider Joi Prieto MD Primary Care Provider Unavailable Primary Care Provider Unavailshen Pearce DMD, MD, Hugo Unavailable PROVIDER, UNKNOWN Attending Unavailable PROVIDER, UNKNOWN Admitting Unavailable GENESIS QURESHI Referring Unavailable PATIENT, SELF Referring Unavailable PROVIDER, UNKNOWN Attending Unavailable PROVIDER, UNKNOWN Admitting Unavailable Heath Farley APRN, CNP Primary Care Provid er Rhonda MOLD INJECTOR - TRIAL JUDGE, Heath M Primary Care Provid er Rhonda MOLD INJECTOR - TRIAL JUDGE, Heath M Primary Care Provid er Rhonda MOLD INJECTOR - TRIAL JUDGE, Heath M Primary Care Provid er MD Joi Prieto Primary Care Provider MD Akbar Arben Admit Provider MD Arben Webber Attending Provider [phone] Santi Valenzuela Unavailable HEATH ELLIS M Primary Care Unavailable GALINA, LISSETTE L Referring Unavailable RHONDA, HEATH M Primary Care Unavailable GALINA, LISSETTE L Referring Unavailable RHONDA, HEATH M Primary Care Unavailable GALINA, LISSETTE L Referring Unavailable RHONDA, HEATH M Primary Care Unavailable GALINA, LISSETTE L Referring Unavailable RHONDA, HEATH M Primary Care Unavailable GALINA, LISSETTE L Referring Unavailable RHONDA HEATH M Primary Care Unavailable GALINA, LISSETTE L Referring Unavailable RHONDA, HEATH M Primary Care Unavailable GALINA, LISSETTE L Referring Unavailable RHONDA, HEATH M Primary Care Unavailable GALINA, LISSETTE L Referring Unavailable Patti Mcnamara Unavailable Joi Prieto Primary Care Unavaila ble Amando, Blade Admitting Unavailab Arben Dunn Attending Unavailable Joi Prieto Primary Care Unavaila ble Amando, Blade Admitting Unavailab le Amando Blade Attending Unavailab le Joi Prieto Primary Care Unavaila ble Amando, Blade Admitting Unavailab le Amando, Blade Attending Unavailab Arben Dunn Admitting Unavailable Arben Webber Attending Unavailable Joi Prieto Primary Care Unavaila ble Allergies Allergy Classification Reported Allergen(s) Allergy Type Date of Onset Reaction(s) Facility (2 sources) Bee/Wasp/Ant venom; 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: [Bee Stings] Propensity to adverse reactions to drug (disorder) [facility] Repository (1 source) No Known Allergies; 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: [No Known Allergies] Propensity to adverse reactions to drug (disorder) [facility] Repository (1 source) No Known Medication Allergies; 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: [No Known Medication Allergies] Propensity to adverse reactions (disorder) [facility] Repository (1 source) bee venom Drug allergy (disorder) [facility] Repository (3 sources) Bee Sting Drug allergy anaphylaxis [facility] Other (1 source) bee venom protein (honey bee) Drug allergy (disorder) 9 [facility] Repository Medications Current Medications Medication Drug Class(es) Dates Sig (Normalized) Sig (Original) acetaminophen 325 mg / HYDROcodone bitartrate 5 mg oral tablet (3 sources) Opioid Agonist Start: 04-05-2022 End: 04-12-2022 take 1 tablet by mouth every six hours as needed for pain hydrocodone-acetami nophen (NORCO) 5-325 mg per tablet Indications: Chronic dental caries extending to pulp Take 1 Tablet by mouth every 6 hours as needed for Pain for up to 7 days. 12 Tablet 0 04/05/2022 04/12/2022 Active atorvastatin 10 mg oral tablet (9 sources) HMG-CoA Reductase Inhibitor Start: 06-02-2019 End: 06-18-2023 take 10 mg by mouth once daily Atorvastatin Active 10 MG PO Daily June 18, 2023 12:00am benzocaine 6 mg / menthol 10 mg oral lozenge (3 sources) Standardized Chemical Allergen Chloraseptic 6-10 MG 1 lozenge as needed Mouth/Throat every 2 hrs Active busPIRone hydrochloride 10 mg oral tablet (4 sources) Start: 06-22-2023 take 10 mg by mouth twice daily Buspirone Active 10 MG PO Twice daily 60 30 June 22, 2023 12:00am chlorhexidine gluconate 1.2 mg/ml mouthwash (3 sources) Start: 04-05-2022 take 15 mL by mouth twice daily, then take 15 mL by mouth twice daily chlorhexidine (PERIDEX) 0.12 % oral solution Take 15 mL by mouth 2 times daily. Rinse 15 mL in mouth for 2 minutes two times daily and spit out. Do not swallow. 1 mL 0 04/05/2022 Active Start: 04-05-2022 take 15 mL by mouth twice daily, then take 15 mL by mouth twice daily chlorhexidine (PERIDEX) 0.12 % oral solution Take 15 mL by mouth 2 times daily. Rinse 15 mL in mouth for 2 minutes two times daily and spit out. Do not swallow. 1 mL 0 04/05/2022 Active etodolac 500 mg oral tablet (3 sources) Nonsteroidal Anti-inflammatory Drug take 1 tablet by mouth every twelve hours Etodolac 500 MG 1 tablet with food Orally Twice a day Active ibuprofen 600 mg oral tablet (15 sources) Nonsteroidal Anti-inflammatory Drug Start: 2 End: 2 take 1 tablet by mouth every six hours as needed for pain ibuprofen (ADVIL;MOTRIN) 600 MG tablet TAKE 1 TABLET BY MOUTH EVERY 6 HOURS NEEDED FOR PAIN FOR UP TO 7 DAYS. 0 04/05/2022 Active Start: 06-02-2019 End: 06-06-2019 take 1 tablet by mouth every four hours as needed for pain Ibuprofen 400 TAB Oral Q4H PRN For Muscle Pain June 02, 2019 June 06, 2019 Discontinued 3 ml liraglutide 6 mg/ml pen injector (3 sources) GLP-1 Receptor Agonist Start: 08-09-2023 Victoza 18 MG/3ML 0.6 mg once daily for week 1, followed by 1.2 mg once daily for week 2, followed by 1.8 mg once daily for week 3 and beyond Subcutaneous Once daily for 28 days Aug, Active lurasidone hydrochloride 120 mg oral tablet (20 sources) Atypical Antipsychotic Start: 06-18-2023 take 120 mg by mouth once daily Lurasidone Active 120 MG PO Daily June 18, 2023 12:00am Start: 06-23-2019 End: 06-18-2023 Lurasidone Discontinued 120 MG PO Daily June 23, 2019 11:45am June 18, 2023 12:26pm must administer with food (at least 350 calories) Start: 06-02-2019 End: 06-23-2019 take 80 mg by mouth once daily Lurasidone 80 MG Oral D aily June 02, 2019 Active Milk of Magnesia 400 MG/5ML (2 sources) Milk of Magnesia 400 MG/5ML 5 mL at least 4 hours between doses as needed Orally Four times a day Active nicotine 2 mg chewing gum (12 sources) Cholinergic Nicotinic Agonist Start: 7 nicotine polacrilex (NICORETTE) 2 MG gum Take 1 each by mouth as needed for Smoking cessation 110 each 0 07/23/2017 Active olopatadine 1 mg/ml ophthalmic solution (3 sources) Histamine-1 Receptor Inhibitor take 1 drop(s) into the eye(s) twice daily Olopatadine HCl 0.1 % 1 drop into affected eye Ophthalmic Twice a day Active take 1 drop(s) into the eye(s) twice daily Olopatadine HCl 0.1 % 1 drop into affect ed eye Ophthalmic Twice a day Active omeprazole 20 mg delayed release oral capsule (4 sources) Proton Pump Inhibitor Start: 06-23-2019 take 20 mg by mouth once daily Omeprazole Active 20 MG PO Daily June 23, 2019 12:00am OXcarbazepine 300 mg oral tablet (12 sources) Anti-epileptic Agent Start: 07-23-2017 take 1 tablet by mouth twice daily OXcarbazepine (TRILEPTAL) 300 MG tablet Take 1 tablet by mouth 2 times daily 60 tablet 0 07/23/2017 Active 1 ml paliperidone palmitate 156 mg/ml prefilled syringe (18 sources) Atypical Antipsychotic Start: 06-22-2023 Paliperidone Palmitate (Invega Sustenna) 156 mg/mL syringe Active 156 MG IM Q28D June 22, 2023 12:00am due 07/19/23 Start: 06-06-2019 End: 06-23-2019 take 3 mg by mouth once daily at bedtime Paliperidone Active 3 MG PO Daily at bedtime June 23, 2019 12:00am Start: 06-02-2019 End: 06-06-2019 take 6 mg by mouth once daily Paliperidone 6 MG Oral D aily June 02, 2019 Discontinued petrolatum 1 mg/mg topical ointment (1 source) Start: 06-18-2023 White Petrolat um (Petroleum Jelly) Gel Active 1 APPLIC TOPICAL Twice daily June 18, 2023 12:00am to feet prazosin 1 mg oral capsule (9 sources) alpha-Adrenergi c Lara Start: 06-23-2019 take 2 mg by mouth once daily at bedtime Prazosin Active 2 MG PO Daily at bedtime 60 June 23, 2019 12:00am Start: 06-06-2019 End: 06-23-2019 take 1 mg by mouth once daily at bedtime Prazosin 1 MG Oral Daily at bedtime 14 14 June 06, 2019 Active take 1 capsule by [facility] every twenty-four hours Prazosin HCl 2 MG 1 capsule at bedtime Orally Once a day Active 24 hr QUEtiapine 300 mg extended release oral tablet (12 sources) Atypical Antipsychotic take 1 tablet by mouth once daily QUEtiapine (SEROQUEL XR) 300 MG extended release tablet Take 300 mg by mouth nightly. 0 Active risperiDONE 3 mg oral tablet (12 sources) Atypical Antipsychotic Start: 7 take 1 tablet by mouth twice daily risperiDONE (RISPERDAL) 3 MG tablet Take 1 tablet by mouth 2 times daily 60 tablet 0 07/23/2017 Active sertraline 50 mg oral tablet (10 sources) Serotonin Reuptake Inhibitor Start: 3 take 150 mg by mouth once daily Sertraline Active 150 MG PO Daily 90 June 22, 2023 12:00am Start: 06-23-2019 End: 06-22-2023 take 100 mg by mouth once daily Sertraline Discontinue d 100 MG PO Daily June 23, 2019 12:00am June 22, 2023 11:35am Start: 06-02-2019 End: 06-23-2019 take 50 mg by mouth once daily Sertraline [Zoloft] 50 MG Oral Daily June 02, 2019 Active take 2 tablets by [facility] every twenty-four hours Sertraline HCl 100 MG 2 tablet Orally Once a day Active traZODone hydrochloride 50 mg oral tablet (12 sources) Serotonin Reuptake Inhibitor Start: 07-23-2017 take 1 tablet by mouth once daily as needed for sleep traZODone (DESYREL) 50 MG tablet Take 1 tablet by mouth nightly as needed for Sleep 30 tablet 0 07/23/2017 Active Completed/Discontinued Medications Medication Drug Class(es) Dates Sig (Normalized) Sig (Original) acetaminophen 325 mg oral capsule (5 sources) Start: 06-02-2019 take 650 mg by mouth every four hours as needed for pain Acetaminophen [Tylenol] 650 MG Oral Q4H PRN For Pain June 02, 2019 Active Start: 06-02-2019 End: 06-18-2023 take 2 capsules by mouth every four hours Acetaminophen (Tylenol) 325 mg Capsule Discontinued 650 MG PO Q4H June 02, 2019 12:00am June 18, 2023 11:40am Albuterol (5 sources) beta2-Adrenergic Agonist Start: 06-02-2019 take 1 puff(s) by inhalation every four hours as needed Albuterol Sulfate 2 PUFF Inhalation Q4H PRN For Shortness Of Breath June 02, 2019 Active Start: 06-02-2019 take 1 puff(s) by in halation every four hours as needed Albuterol Sulfate [Proair Hfa] 2 PUFF Inhalation Q4H PRN For Shortness Of Breath June 02, 2019 Active Start: 06-02-2019 End: 06-18-2023 take 1 puff(s) by inhalation every four hours Albuterol Sulfate (Proair Hfa) 90 mcg/actuation Hfa Aerosol Inhaler Discontinued 2 PUFF INHALATION Q4H June 02, 2019 12:00am June 18, 2023 12:26pm aluminum hydroxide 80 mg/ml / magnesium hydroxide 80 mg/ml / simethicone 8 mg/ml oral suspension (8 sources) Start: 06-02-2019 End: 06-18-2023 take 1 mL by mouth every four hours as needed Alum-Mag Hydroxide-Simeth [Maalox Maximum Strength] 10 ML Oral Q4H PRN For Stomach Upset June 02, 2019 Active take 10 mL by mouth four times daily as needed Cori-Lanta 200-200-20 MG/5ML 10 mL as needed Orally Four times a day Active aspirin 325 mg oral tablet (5 sources) Platelet Aggregation Inhibitor, Nonsteroidal Anti-inflammatory Drug Start: 06-02-2019 End: 06-18-2023 take 325 mg by mouth once daily as needed for pain Aspirin 325 MG Oral Daily PRN For Chest Pain June 02, 2019 Active clotrimazole 10 mg/ml topical cream (5 sources) Azole Antifungal Start: 06-02-2019 End: 06-14-2019 Clotrimazole [Lotrimin Af] 1 APPLIC Topical Twice daily June 02, 2019 Active apply to rash on left upper arm 24 hr dexmethylphenidate hydrochloride 25 mg extended release oral capsule (18 sources) Central Nervous System Stimulant Start: 06-14-2019 End: 06-23-2019 Dexmethylphenidate (Focalin Xr) 25 mg Capsule,Er Biphasic 50-50 Discontinued 25 MG PO Every morning June 14, 2019 12:00am June 23, 2019 11:39am Start: 06-02-2019 End: 06-06-2019 take 25 mg by mouth once daily in the morning Dexmethylphenidate [Focalin Xr] 25 MG Oral Every morning June 02, 2019 June 06, 2019 Discontinued Dexmethylphenida te HCl ER 30 MG CP24 Take 30 mg/day by mouth 2 times daily. 0 Active dextromethorphan hydrobromide 2 mg/ml / guaiFENesin 20 mg/ml oral solution (8 sources) Uncompetitive J-skrnrp-X-aspartate Receptor Antagonist, Sigma-1 Agonist Start: 06-02-2019 End: 06-18-2023 take 1 mL by mouth every four hours as needed for cough Dextromethorphan-Guaifenesin [Robafen Dm Cough-Chest Congest] 10 ML Oral Q4H PRN For Cough June 02, 2019 Active Robafen DM 20-20 0 MG/20ML 20 mL as needed Orally every 4 hrs Active diazePAM 10 mg oral tablet (1 source) Benzodiazepine Start: 02-01-2022 End: 02-01-2022 take 1 tablet by mouth once, then take 1 tablet by mouth every hour diazePAM (Valium) 10 MG tablet Indications: Chronic dental caries extending to pulp Take 1 Tablet by mouth once for 1 dose. Take one tablet by mouth 1 hour prior to procedure. 1 Tablet 0 02/01/2022 02/01/2022 docusate sodium 100 mg oral capsule (8 sources) Start: 06-02-2019 take 100 mg by mouth once daily Docusate Sodium 100 MG Oral Daily June 02, 2019 Active ammonium lactate 120 mg/ml topical lotion (5 sources) Start: 06-02-2019 End: 06-18-2023 Ammonium Lactate 1 APPLIC Topical Twice daily June 02, 2019 Active levothyroxine sodium 0.05 mg oral tablet (18 sources) l-Thyroxine Start: 06-02-2019 take 50 ug by mouth once daily Levothyroxine [Synthroid] 50 MCG Oral Daily June 02, 2019 Active take 1 tablet by zane th once daily in the morning Levothyroxine Sodium 50 MCG 1 tablet in the morning on an empty stomach Orally Once a day Active loperamide hydrochloride 2 mg oral capsule (8 sources) Opioid Agonist Start: 06-02-2019 Loperamide 2 M G Oral EVERY 1-3 HOURS PRN For Diarrhea June 02, 2019 Active 2 caps first loose stool then 1 cap each additional loose stool as needed max 16mg/24hrs take 2 capsules by mouth every s ix hours Loperamide HCl 2 MG 2 capsule as needed Orally Four times a day Active magnesium hydroxide 80 mg/ml oral suspension (6 sources) Start: 06-02-2019 take 1 mL by mouth once daily as needed for constipation Magnesium Hydroxide 30 ML Oral Daily PRN For Constipation June 02, 2019 Active if no bm in 4 days Start: 06-02-2019 End: 06-18-2023 take 1 mL by mouth once daily Magnesium Hydroxide (Mil k Of Magnesia) 400 mg/5 mL Suspension Discontinued 30 ML PO Daily June 02, 2019 12:00am June 18, 2023 12:26pm if no bm in 4 days Milk of Magnesia 400 MG/5ML 5 mL at least 4 hours between doses as needed Orally Four times a day Active 1 ml medroxyPROGESTERone acetate 150 mg/ml injection (20 sources) Progestin Start: 06-02-2019 inject 150 mg by intramuscular injection every three months Medroxyprogesterone [Depo-Provera] 150 MG Intramuscular EVERY 3 MONTHS June 02, 2019 Active due 07/25/19 Start: 06-02-2019 inject 150 mg by int ramuscular injection every three months Medroxyprogesterone (Depo-Provera) 150 mg/mL Suspension Active 150 MG IM EVERY 3 MONTHS June 02, 2019 12:00am due 08/10/23 Start: 09-13-2017 DEPO-PROVERA 1 Aug, 150 mg metFORMIN hydrochloride 500 mg oral tablet (18 sources) Biguanide Start: 06-02-2019 take 500 mg by mouth twice daily at mealtime Metformin 500 MG Oral Twice daily with meals June 02, 2019 Active mupirocin 0.02 mg/mg topical ointment (5 sources) RNA Synthetase Inhibitor Antibacterial Start: 06-02-2019 End: 06-18-2023 Mupirocin 1 APPLIC Topical Three times daily PRN For Wound Care June 02, 2019 Active breast wound PARoxetine hydrochloride 20 mg oral tablet (5 sources) Serotonin Reuptake Inhibitor Start: 06-02-2019 End: 06-06-2019 take 20 mg by mouth once daily Paroxetine Hcl [Paxil] 20 MG Oral Daily June 02, 2019 June 06, 2019 Discontinued divalproex sodium 500 mg delayed release oral tablet (5 sources) Mood Stabilizer, Anti-epileptic Agent Start: 06-02-2019 take 1000 mg by mouth once daily Divalproex 1000 MG Oral Daily June 02, 2019 Active Start: 06-02-2019 End: 06-23-2019 take 2 tablets by mouth once daily Divalproex (Depakote) 500 mg Tablet,Delayed Release (Dr/Ec) Discontinued 1000 MG PO Daily June 02, 2019 12:00am June 23, 2019 11:39am zinc oxide 130 mg/ml topical cream (5 sources) Start: 06-02-2019 End: 06-18-2023 Zinc Oxide 1 APPLIC Topical Three times daily PRN For Rash June 02, 2019 Active Problems Active Problems Problem Classification Problem Date Documented Date Episodic/Chronic Administrative/socia l admission (2 sources) Dietary counseling and surveillance; 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: [Other specified counseling] Episodic Anxiety disorders (20 sources) Posttraumatic stress disorder; 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: [Obsessive-compulsive disorder] Onset: 10-18-2017 10-07-2019 Chronic Attention-deficit conduct and disruptive behavior disorders (12 sources) Attention deficit hyperactivity disorder; 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: [Attention-deficit hyperactivity disorder, unspecified type] Onset: 11-06-2013 11-06-2013 Chronic Attention-deficit, conduct, and disruptive behavior disorders (2 sources) Attention-deficit hyperactivity disorder, unspecified type; 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: [Attention-deficit hyperactivity disorder, unspecified type] Onset: 01-17-2023 Chronic Developmental disorders (20 sources) Disorder of speech and language development; 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] Onset: 04-13-2004 10-07-2019 Chronic Diabetes mellitus without complication (15 sources) Type 2 diabetes mellitus without complication; 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: [Type 2 diabetes mellitus without complications] Onset: 09-16-2019 10-07-2019 Chronic Diabetes mellitus without complication (11 sources) Prediabetes; 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: [Prediabetes] Onset: 12-14-2020 03-16-2021 Episodic Disorders of lipid metabolism (12 sources) Mixed hyperlipidemia; 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: [Mixed hyperlipidemia] Onset: 12-14-2020 03-16-2021 Chronic Disorders of teeth and jaw (4 sources) Carious exposure of pulp ; 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: [Dental caries, unspecified] Episodic Disorders usually diagnosed in infancy childhood or adolescence (20 sources) Autistic disorder; 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: [Asperger's disorder] Onset: 11-06-2013 10-07-2019 Chronic Esophageal disorders (10 sources) Gastroesophageal reflux disease; 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: [Gastro-esophageal reflux disease without esophagitis] Onset: 12-14-2020 03-16-2021 Chronic Essential hypertension (12 sources) Hypertensive disorder; 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: [Essential (primary) hypertension] Onset: 10-18-2017 10-07-2019 Chronic Genitourinary symptoms and ill-defined conditions (14 sources) Personal history of urinary (tract) infections; 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: [History of urinary tract infection] Onset: 09-16-2019 03-16-2021 Episodic Immunizations and screening for infectious disease (5 sources) Contact with and (suspected) exposure to other viral communicable diseases; 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: [Patient encounter status] Onset: 04-15-2020 Episodic Menstrual disorders (12 sources) Dysmenorrhea; 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: [Dysmenorrhea, unspecified] Onset: 05-15-2012 10-07-2019 Chronic Mood disorders (20 sources) Bipolar disorder, unspecified; 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: [Depressive disorder] Onset: 07-15-2017 10-07-2019 Chronic Mood disorders (1 source) Major depressive disorder, single episode, unspecified; 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: [LITTLE DEPRESS D/O SINGLE EPIS UNS] Onset: 09-16-2019 Other aftercare (2 sources) long-term (current) use of oral hypoglycemic drugs; 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: [meterman (current) use of oral hypoglycemic drugs] Onset: 09-16-2019 10-07-2019 Other nutritional; endocrine; and metabolic disorders (12 sources) Developmental delay; 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: [Other disorders of psychological development] Onset: 04-13-2004 10-07-2019 Chronic Other nutritional; endocrine; and metabolic disorders (16 sources) Morbid obesity; 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: [Morbid (severe) obesity due to excess calories] Onset: 12-18-2017 10-07-2019 Chronic Other nutritional; endocrine; and metabolic disorders (2 sources) Morbid (severe) obesity due to excess calories; 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: [Morbid (severe) obesity due to excess calories] Onset: 01-18-2023 Chronic Other nutritional; endocrine; and metabolic disorders (2 sources) Abnormal weight gain; 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: [Abnormal weight gain] Onset: 08-15-2023 Episodic Other screening for suspected conditions (not mental disorders or infectious disease) (1 source) Encounter for other screening for genetic and chromosomal anomalies Episodic Schizophrenia and other psychotic disorders (20 sources) Schizoaffective disorder; 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: [Schizoaffective disorder, bipolar type] Onset: 05-15-2016 07-15-2017 Chronic Thyroid disorders (15 sources) Hypothyroidism; 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: [Hypothyroidism, unspecified] Onset: 09-16-2019 10-07-2019 Chronic Unclassified (1 source) Long-term current use of drug therapy; 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] Onset: 09-16-2019 10-07-2019 Unclassified (1 source) Dietary counseling and surveillance; 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: [Dietary counseling and surveillance] Onset: 09-11-2023 Unclassified (1 source) Schizoaffective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 [address] Sanding Line Operator: Guido Jhaveri MD HbA1c (Bld) [Mass fraction] 5.9 % Normal 4.0-6.0 [facility] Comment on above: Performed By: #### C P #### [facility] [address] [place] [address] Sanding Line Operator: Tray Diza MD #### GLYHGB #### [address] [phone] Sanding Line Operator: Guido Jhaveri MD Average glucose Estimated from glycated hemoglobin (Bld) [Mass/Vol] 123 mg/dL [facility] Comment on above: The ADA and AACC rec ommend providing the estimated average glucose result to permit better patient understanding of their HBA1c result. HbA1c (Bld) [Mass fraction] 5.9 % 4.0 - 6.0 % [facility] CBCon 04-12-2023 Erythrocyte distribution width (RBC) [Ratio] 12.8 % Normal 11.8-14.4 [facility] Comment on above: Performed By: #### C P #### [facility] [address] [place] [address] [place] [address] Sanding Line Operator: Tray Diaz MD #### GLYHGB #### [address] [address] Sanding Line Operator: Guido Jhaveri MD Hematocrit (Bld) [Volume fraction] 44.2 % Normal 36.3-47.1 [facility] Comment on above: Performed By: #### C P #### [facility] [address] [place] [address] Dr. [place], [place] [phone] Sanding Line Operator: Tray Diaz MD #### GLYHGB #### [address] [address] Sanding Line Operator: Guido Jhaveri MD Hemoglobin (Bld) [Mass/Vol] 14.8 g/dL Normal 11.9-15.1 [facility] Comment on above: Performed By: #### C P #### [facility] [address] [place] [address] [place] [address] Sanding Line Operator: Tray Diaz MD #### GLYHGB #### [address] [phone] Sanding Line Operator: Guido Jhaveri MD MCH (RBC) [Entitic mass] 28.0 pg Normal 25.2-33.5 [facility] Comment on above: Performed By: #### C P #### [address] [place] [address] Sanding Line Operator: Tray Diaz MD #### GLYHGB #### [address] [phone] Sanding Line Operator: Guido Jhaveri MD MCHC (RBC) [Mass/Vol] 33.5 g/dL Normal 28.4-34.8 [facility] Comment on above: Performed By: #### C P #### [address] [place] [phone] Sanding Line Operator: Tray Diaz MD #### GLYHGB #### [address] [address] Sanding Line Operator: Guido Jhaveri MD MCV (RBC) [Entitic vol] 83.6 fL Normal 82.6-102.9 [facility] Comment on above: Performed By: #### C P #### [address] [place] [phone] Sanding Line Operator: Tray Diaz MD #### GLYHGB #### [address] [address] Sanding Line Operator: Guido Jhaveri MD NRBC Automated 0.0 per 100 WBC Normal 0.0 [facility] Comment on above: Performed By: #### C P #### [address] [place] [address] Sanding Line Operator: Tray Diaz MD #### GLYHGB #### [address] [phone] Sanding Line Operator: Guido Jhaveri MD Platelet mean volume (Bld) [Entitic vol] 10.2 fL Normal 8.1-13.5 [facility] Comment on above: Performed By: #### C P #### [facility] [address] [place] [address] Sanding Line Operator: Tray Diaz MD #### GLYHGB #### [address] [phone] Sanding Line Operator: Guido Jhaveri MD Platelets (Bld) [#/Vol] 235 10*3/uL Normal 138-453 [facility] Comment on above: Performed By: #### C P #### [facility] [address] [place] [phone] Sanding Line Operator: Tray Diaz MD #### GLYHGB #### [address] [address] Sanding Line Operator: Guido Jhaveri MD RBC (Bld) [#/Vol] 5.29 10*6/uL High 3.95-5.11 [facility] Comment on above: Performed By: #### C P #### [facility] [address] [place], [place] [phone] Sanding Line Operator: Tray Diaz MD #### GLYHGB #### [address] [address] Sanding Line Operator: Guido Jhaveri MD WBC (Bld) [#/Vol] 10.1 10*3/uL Normal 3.5-11.3 [facility] Comment on above: Performed By: #### C P #### [facility] [address] [place], [place] 9453683 Sanding Line Operator: Tray Diaz MD #### GLYHGB #### [address] [address] Sanding Line Operator: Guido Jhaveri MD Lipid Profileon 04-12-2023 Cholesterol [Mass/Vol] 100 mg/dL Normal <200 [facility] Comment on above: Result Comment: Cholesterol Guidelines: <200 Desirable 200-240 Borderline >240 Undesirable Performed By: #### C P #### [facility] [address] [place] [address] [place] [address] Sanding Line Operator: Tray Diaz MD #### GLYHGB #### [address] [place], [place] [phone] Sanding Line Operator: Guido Jhaveri MD Cholesterol in HDL [Mass/Vol] 30 mg/dL Low >40 [facility] Comment on above: Result Comment: HDL Guidelines: <40 Undesirable 40-59 Borderline >59 Desirable Performed By: #### C P #### [address] [place] [phone] Sanding Line Operator: Tray Diaz MD #### GLYHGB #### [address] [address] Sanding Line Operator: Guido Jhaveri MD Cholesterol in LDL [Mass/Vol] 41 mg/dL Normal 0-130 [facility] Comment on above: Result Comment: LDL Guidelines: <100 Desirable 100-129 Near to/above Desirable 130-159 Borderline >159 Undesirable Direct (measured) LDL and calculated LDL are not interchangeable tests. Performed By: #### C P #### [address] [place] [phone] Sanding Line Operator: Tray Diaz MD #### GLYHGB #### [address] [address] Sanding Line Operator: Guido Jhaveri MD Cholesterol.total/C holesterol in HDL [Mass ratio] 3.3 {ratio} Normal <5 [facility] Comment on above: Performed By: #### C P #### [address] [place] [phone] Sanding Line Operator: Tray Diaz MD #### GLYHGB #### [facility] [address] [place] [address] Sanding Line Operator: Guido Jhaveri MD Triglyceride [Mass/Vol] 144 mg/dL Normal <150 [facility] Comment on above: Result Comment: Triglyceride Guidelines: <150 Desirable 150-199 Borderline 200-499 High >499 Very high Based on AHA Guidelines for fasting triglyceride, July 2012. Performed By: #### C P #### [facility] [address] [place] [address] Dr. [place], [place] [phone] Sanding Line Operator: Tray Diaz MD #### GLYHGB #### [address] [address] Sanding Line Operator: Guido Jhaveri MD Liver Profileon 04-12-2023 Albumin [Mass/Vol] 4.3 g/dL Normal 3.5-5.2 [facility] Comment on above: Performed By: #### C P #### [address] [place] [address] Sanding Line Operator: Tray iDaz MD #### GLYHGB #### [address] [address] Sanding Line Operator: Guido Jhaveri MD Albumin/Glob Ratio 1.3 Normal 1.0-2.5 [facility] Comment on above: Performed By: #### C P #### [address] [place], [place] [phone] Sanding Line Operator: Tray Diaz MD #### GLYHGB #### [address] [address] Sanding Line Operator: Guido Jhaveri MD Alkaline Phos 83 U/L Normal 35-104 [facility] Comment on above: Performed By: #### C P #### [facility] [address] [place] [address] Dr. [place], [place] [phone] Sanding Line Operator: Tray Diaz MD #### GLYHGB #### [facility] [address] [place] [address] Sanding Line Operator: Guido Jhaveri MD ALT [Catalytic activity/Vol] 24 U/L Normal 5-33 [facility] Comment on above: Performed By: #### C P #### [facility] [address] [place], [place] 4796583 Sanding Line Operator: Tray Diaz MD #### GLYHGB #### [address] [address] Sanding Line Operator: Guido Jhaveri MD AST [Catalytic activity/Vol] 16 U/L Normal <32 [facility] Comment on above: Performed By: #### C P #### [address] [place], [place] 2273983 Sanding Line Operator: Tray Diaz MD #### GLYHGB #### [address] [address] Sanding Line Operator: Guido Jhaveri MD Bilirubin [Mass/Vol] 0.5 mg/dL Normal 0.3-1.2 [facility] Comment on above: Performed By: #### C P #### [address] [place], [place] 6525983 Sanding Line Operator: Tray Diaz MD #### GLYHGB #### [address] [address] Sanding Line Operator: Guido Jhaveri MD Bilirubin, Indirect Can not be calculated Normal 0.0-1 .0 [facility] Comment on above: Performed By: #### C P #### [facility] [address] [place] [address] Dr. [place], [place] [phone] Sanding Line Operator: Tray Diaz MD #### GLYHGB #### [address] [address] Sanding Line Operator: Guido Jhaveri MD Bilirubin.indirect [Mass/Vol] mg/dL Normal <0.3 [facility] Comment on above: Performed By: #### C P #### [facility] [address] [place] [address] Sanding Line Operator: Tray Diaz MD #### GLYHGB #### [address] [place], [place] [phone] Sanding Line Operator: Guido Jhaveri MD Protein [Mass/Vol] 7.5 g/dL Normal 6.4-8.3 [facility] Comment on above: Performed By: #### C P #### [facility] [address] [place] [address] [place] [address] Sanding Line Operator: Tray Diaz MD #### GLYHGB #### [address] [phone] Sanding Line Operator: Guido Jhaveri MD Magnesium 04-12-2023 Magnesium [Mass/Vol] 1.9 mg/dL Normal 1.6-2.6 [facility] Comment on above: Performed By: #### C P #### [address] [place] [address] Sanding Line Operator: Tray Diaz MD #### GLYHGB #### [address] [phone] Sanding Line Operator: Guido Jhaveri MD Thyroid Stim. Horm.on 2022 Thyroid Stim. Horm. 1.53 uIU/mL Normal 0.30-5.00 [facility] Comment on above: Performed By: #### C P #### [facility] [address] [place] [address] Sanding Line Operator: Tray Diaz MD #### GLYHGB #### [address] [place], [place] [phone] Sanding Line Operator: Guido Jhaveri MD Thyroxine, Freeon 04-12-2023 Thyroxine, Free 1.2 ng/dL Normal 0.9-1.7 [facility] Comment on above: Performed By: #### C P #### [facility] [address] [place], [place] 1353383 Sanding Line Operator: rTay Diaz MD #### GLYHGB #### [facility] [address] [place] [address] Sanding Line Operator: Guido Jhaveri MD Valproic Acidon 04-12-2023 Valproic Acid <3 Low 50-125 [facility] Comment on above: Performed By: #### C P #### [facility] [address] [place] [address] Sanding Line Operator: Tray Diaz MD #### GLYHGB #### [facility] [address] [place] [address] Sanding Line Operator: Guido Jhaveri MD Vitamin B12on 04-12-2023 Cobalamin (Vitamin B12) [Mass/Vol] 460 pg/mL Normal 232-1245 [facility] Comment on above: Performed By: #### C P #### [facility] [address] [place], [place] 1076083 Sanding Line Operator: Tray Diaz MD Hemoglobin A1Con 03-01-2023 Glucose [Mass/Vol] 120 mg/dL Normal [facility] Comment on above: Result Comment: The ADA and AACC recommend providing the estimated average glucose result to permit better patient understanding of their HBA1c result. Performed By: #### C P #### [facility] [address] [place] [address] Sanding Line Operator: Tray Diaz MD #### GLYHGB #### [facility] [address] [place] [address] Sanding Line Operator: Guido Jhaveri MD HbA1c (Bld) [Mass fraction] 5.8 % Normal 4.0-6.0 [facility] Comment on above: Performed By: #### C P #### [facility] [address] [place], [place] 2280183 Sanding Line Operator: Tray Diaz MD #### GLYHGB #### [facility] [address] [place] [address] Sanding Line Operator: Guido Jhaveri MD Comp Metabolic Profon 2022 Albumin [Mass/Vol] 4.2 g/dL Normal 3.5-5.2 [facility] Comment on above: Performed By: #### C P #### [facility] [address] [place], [place] 0369983 Sanding Line Operator: Tray Diaz MD #### GLYHGB #### [address] [place] [address] Sanding Line Operator: Guido Jhaveri MD Albumin/Glob Ratio 1.2 Normal 1.0-2.5 [facility] Comment on above: Performed By: #### C P #### [facility] [address] [place], [place] 1073983 Sanding Line Operator: Tray Diaz MD #### GLYHGB #### [address] [place] [address] Sanding Line Operator: Guido Jhaveri MD Alkaline Phos 77 U/L Normal 35-104 [facility] Comment on above: Performed By: #### C P #### [facility] [address] [place] [address] Sanding Line Operator: Tray Diaz MD #### GLYHGB #### [facility] [address] [place] [address] Sanding Line Operator: Guido Jhaveri MD ALT [Catalytic activity/Vol] 23 U/L Normal 5-33 [facility] Comment on above: Performed By: #### C P #### [facility] [address] [place] [phone] Sanding Line Operator: Tray Diaz MD #### GLYHGB #### [facility] [address] [place] [address] Sanding Line Operator: Guido Jhaveri MD Anion gap [Moles/Vol] 13 mmol/L Normal 9-17 [facility] Comment on above: Performed By: #### C P #### [facility] [address] [place], [place] 6127383 Sanding Line Operator: Tray Diaz MD #### GLYHGB #### [address] [address] Sanding Line Operator: Guido Jhaveri MD AST [Catalytic activity/Vol] 17 U/L Normal <32 [facility] Comment on above: Performed By: #### C P #### [facility] [address] [place] [address] Dr. [place], [place] [phone] Sanding Line Operator: Tray Diaz MD #### GLYHGB #### [address] [address] Sanding Line Operator: Guido Jhaveri MD Bilirubin [Mass/Vol] 0.3 mg/dL Normal 0.3-1.2 [facility] Comment on above: Performed By: #### C P #### [facility] [address] [place], [place] 2719483 Sanding Line Operator: Tray Diaz MD #### GLYHGB #### [address] [address] Sanding Line Operator: Guido Jhaveri MD BUN/CRE Ratio 20 Normal 9-20 [facility] Comment on above: Performed By: #### C P #### [facility] [address] [place], [place] 3033283 Sanding Line Operator: Tray Diaz MD #### GLYHGB #### [address] [address] Sanding Line Operator: Guido Jhaveri MD Calcium [Mass/Vol] 9.2 mg/dL Normal 8.6-10.4 [facility] Comment on above: Performed By: #### C P #### [facility] [address] [place], [place] 1105183 Sanding Line Operator: Tray Diaz MD #### GLYHGB #### [address] [address] Sanding Line Operator: Guido Jhaveri MD Chloride [Moles/Vol] 105 mmol/L Normal 98-107 [facility] Comment on above: Performed By: #### C P #### [address] [place], [place] [phone] Sanding Line Operator: Tray Diaz MD #### GLYHGB #### [address] [address] Sanding Line Operator: Guido Jhaveri MD CO2 [Moles/Vol] 22 mmol/L Normal 20-31 [facility] Comment on above: Performed By: #### C P #### [facility] [address] [place] [address] Dr. [place], [place] 5015683 Sanding Line Operator: Tray Diaz MD #### GLYHGB #### [address] [address] Sanding Line Operator: Guido Jhaveri MD Creatinine [Mass/Vol] 0.66 mg/dL Normal 0.50-0.90 [facility] Comment on above: Performed By: #### C P #### [facility] [address] [place] [address] Dr. [place], [place] 1067383 Sanding Line Operator: Tray Diaz MD #### GLYHGB #### [address] [address] Sanding Line Operator: Guido Jhaveri MD GFR/1.73 sq M.predicted among non-blacks MDRD (S/P/Bld) [Vol rate/Area] mL/min/{1.73_m2} Normal >60 [facility] Comment on above: Result Comment: These results are not intended for use in patients <18 years of age. eGFR results are calculated without a race factor using the 2020 CKD-EPI equation. Careful clinical correlation is recommended, particularly when comparing to results calculated using previous equations. The CKD-EPI equation is less accurate in patients with extremes of muscle mass, extra-renal metabolism of creatine, excessive creatine ingestion, or following therapy that affects renal tubular secretion. Performed By: #### C P #### [facility] [address] [place] [address] [place] [address] Sanding Line Operator: Tray Diaz MD #### GLYHGB #### [address] [phone] Sanding Line Operator: Guido Jhaveri MD Glucose [Mass/Vol] 127 mg/dL High 70-99 [facility] Comment on above: Performed By: #### C P #### [facility] [address] [place] [address] [place] [address] Sanding Line Operator: Tray Diaz MD #### GLYHGB #### [address] [phone] Sanding Line Operator: Guiod Jhaveri MD Potassium [Moles/Vol] 3.9 mmol/L Normal 3.7-5.3 [facility] Comment on above: Performed By: #### C P #### [facility] [address] [place] [address] [place] [address] Sanding Line Operator: Tray Diaz MD #### GLYHGB #### [address] [address] Sanding Line Operator: Guido Jhaveri MD Protein [Mass/Vol] 7.7 g/dL Normal 6.4-8.3 [facility] Comment on above: Performed By: #### C P #### [facility] [address] [place], [place] 5086383 Sanding Line Operator: Tray Diaz MD #### GLYHGB #### [facility] [address] [place], [place] 5986708 Sanding Line Operator: Guido Jhaveri MD Sodium [Moles/Vol] 140 mmol/L Normal 135-144 [facility] Comment on above: Performed By: #### C P #### [facility] [address] [place] [address] [address] [place], [place] 1721083 Sanding Line Operator: Tray Diaz MD #### GLYHGB #### [address] [place], [place] 1622408 Sanding Line Operator: Guido Jhaveri MD Urea nitrogen [Mass/Vol] 13 mg/dL Normal 6-20 [facility] Comment on above: Performed By: #### C P #### [facility] [address] [place] [address] [address] [place], [place] 8080783 Sanding Line Operator: Tray Diaz MD #### GLYHGB #### [address] [place], [place] 1036808 Sanding Line Operator: Guido Jhaveri MD Comprehensive Metabolic Pane [facility] 02-28-2023 Albumin [Mass/Vol] 4.2 g/dL 3.5 - 5.2 g/dL [facility] Albumin/Globulin [Mass ratio] 1.2 {ratio} 1.0 - 2.5 [facility] ALP [Catalytic activity/Vol] 77 U/L 35 - 104 U/L [facility] ALT [Catalytic activity/Vol] 23 U/L 5 - 33 U/L [facility] Anion gap [Moles/Vol] 13 mmol/L 9 - 17 mmol/L [facility] AST [Catalytic activity/Vol] 17 U/L NINF - 32 U/L [facility] Bilirubin [Mass/Vol] 0.3 mg/dL 0.3 - 1.2 mg/dL [facility] Calcium [Mass/Vol] 9.2 mg/dL 8.6 - 10. 4 mg/dL [facility] Chloride [Moles/Vol] 105 mmol/L 98 - 107 mmol/L [facility] CO2 [Moles/Vol] 22 mmol/L 20 - 31 mmol/L [facility] Creatinine [Mass/Vol] 0.66 mg/dL 0.50 - 0.90 mg/dL [facility] GFR/1.73 sq M.predicted MDRD (S/P/Bld) [Vol rate/Area] - PINF [facility] Comment on above: These results are not intended for use in patients <18 years of age. eGFR results are calculated without a race factor using the 2020 CKD-EPI equation. Careful clinical correlation is recommended, particularly when comparing to results calculated using previous equations. The CKD-EPI equation is less accurate in patients with extremes of muscle mass, extra-renal metabolism of creatine, excessive creatine ingestion, or following therapy that affects renal tubular secretion. Glucose [Mass/Vol] 127 mg/dL High 70 - 99 mg/dL [facility] Interpretation and review of laboratory results Abnormal [facility] Potassium [Moles/Vol] 3.9 mmol/L 3.7 - 5.3 mmol/L [facility] Protein [Mass/Vol] 7.7 g/dL 6.4 - 8.3 g/dL [facility] Sodium [Moles/Vol] 140 mmol/L 135 - 144 mmol/L [facility] Urea nitrogen [Mass/Vol] 13 mg/dL 6 - 20 mg/dL [facility] Urea nitrogen/Creatinine [Mass ratio] 20 mg/mg 9 - 20 [facility] Comp Metabolic Profon 2022 Albumin [Mass/Vol] 4.3 g/dL Normal 3.5-5.2 [facility] Comment on above: Performed By: #### C P #### [facility] [address] [place] [address] Sanding Line Operator: Tray Diaz MD Albumin/Glob Ratio 1.3 Normal 1.0-2.5 [facility] Comment on above: Performed By: #### C P #### [facility] [address] [place], [place] 9145783 Sanding Line Operator: Tray Diaz MD Alkaline Phos 82 U/L Normal 35-104 [facility] Comment on above: Performed By: #### C P #### [facility] [address] [place], [place] 0036383 Sanding Line Operator: Tray Diaz MD ALT [Catalytic activity/Vol] 33 U/L Normal 5-33 [facility] Comment on above: Performed By: #### C P #### [facility] [address] [place], [place] 5412883 Sanding Line Operator: Tray Diaz MD Anion gap [Moles/Vol] 12 mmol/L Normal 9-17 [facility] Comment on above: Performed By: #### C P #### [facility] [address] [place], [place] [phone] Sanding Line Operator: Tray Diaz MD AST [Catalytic activity/Vol] 19 U/L Normal <32 [facility] Comment on above: Performed By: #### C P #### [facility] [address] [place], [place] [phone] Sanding Line Operator: Tray Diaz MD Bilirubin [Mass/Vol] 0.3 mg/dL Normal 0.3-1.2 [facility] Comment on above: Performed By: #### C P #### [facility] [address] [place], [place] [phone] Sanding Line Operator: Tray Diaz MD BUN/CRE Ratio 24 High 9-20 [facility] Comment on above: Performed By: #### C P #### [facility] [address] [place], [place] [phone] Sanding Line Operator: Tray Diaz MD Calcium [Mass/Vol] 9.5 mg/dL Normal 8.6-10.4 [facility] Comment on above: Performed By: #### C P #### [facility] [address] [place] [address] Sanding Line Operator: Tray Diaz MD Chloride [Moles/Vol] 106 mmol/L Normal 98-107 [facility] Comment on above: Performed By: #### C P #### [facility] [address] [place] [address] Sanding Line Operator: Tray Diaz MD CO2 [Moles/Vol] 22 mmol/L Normal 20-31 [facility] Comment on above: Performed By: #### C P #### [facility] [address] [place] [address] Sanding Line Operator: Tray Diaz MD Creatinine [Mass/Vol] 0.67 mg/dL Normal 0.50-0.90 [facility] Comment on above: Performed By: #### C P #### [facility] [address] [place] [address] Sanding Line Operator: Tray Diaz MD GFR/1.73 sq M.predicted among non-blacks MDRD (S/P/Bld) [Vol rate/Area] mL/min/{1.73_m2} Normal >60 [facility] Comment on above: Result Comment: These results are not intended for use in patients <18 years of age. eGFR results are calculated without a race factor using the 2020 CKD-EPI equation. Careful clinical correlation is recommended, particularly when comparing to results calculated using previous equations. The CKD-EPI equation is less accurate in patients with extremes of muscle mass, extra-renal metabolism of creatine, excessive creatine ingestion, or following therapy that affects renal tubular secretion. Performed By: #### C P #### [facility] [address] [place] [address] Sanding Line Operator: Tray Diaz MD Glucose [Mass/Vol] 126 mg/dL High 70-99 [facility] Comment on above: Performed By: #### C P #### [facility] [address] [place] [address] Sanding Line Operator: Tray Diaz MD Potassium [Moles/Vol] 3.9 mmol/L Normal 3.7-5.3 [facility] Comment on above: Performed By: #### C P #### [facility] [address] [place], [place] [phone] Sanding Line Operator: Tray Diaz MD Protein [Mass/Vol] 7.5 g/dL Normal 6.4-8.3 [facility] Comment on above: Performed By: #### C P #### [facility] [address] [place], [place] [phone] Sanding Line Operator: Tray Diaz MD Sodium [Moles/Vol] 140 mmol/L Normal 135-144 [facility] Comment on above: Performed By: #### C P #### [facility] [address] [place], [place] [phone] Sanding Line Operator: Tray Diaz MD Urea nitrogen [Mass/Vol] 16 mg/dL Normal 6-20 [facility] Comment on above: Performed By: #### C P #### [facility] [address] [place] [address] Sanding Line Operator: Tray Diaz MD Comprehensive Metabolic Pane [facility] 01-18-2023 Albumin [Mass/Vol] 4.3 g/dL 3.5 - 5.2 g/dL [facility] Albumin/Globulin [Mass ratio] 1.3 {ratio} 1.0 - 2.5 [facility] ALP [Catalytic activity/Vol] 82 U/L 35 - 104 U/L [facility] ALT [Catalytic activity/Vol] 33 U/L 5 - 33 U/L [facility] Anion gap [Moles/Vol] 12 mmol/L 9 - 17 mmol/L [facility] AST [Catalytic activity/Vol] 19 U/L NINF - 32 U/L [facility] Bilirubin [Mass/Vol] 0.3 mg/dL 0.3 - 1.2 mg/dL [facility] Calcium [Mass/Vol] 9.5 mg/dL 8.6 - 10. 4 mg/dL [facility] Chloride [Moles/Vol] 106 mmol/L 98 - 107 mmol/L [facility] CO2 [Moles/Vol] 22 mmol/L 20 - 31 mmol/L [facility] Creatinine [Mass/Vol] 0.67 mg/dL 0.50 - 0.90 mg/dL [facility] GFR/1.73 sq M.predicted MDRD (S/P/Bld) [Vol rate/Area] - PINF [facility] Comment on above: These results are not intended for use in patients <18 years of age. eGFR results are calculated without a race factor using the 2020 CKD-EPI equation. Careful clinical correlation is recommended, particularly when comparing to results calculated using previous equations. The CKD-EPI equation is less accurate in patients with extremes of muscle mass, extra-renal metabolism of creatine, excessive creatine ingestion, or following therapy that affects renal tubular secretion. Glucose [Mass/Vol] 126 mg/dL High 70 - 99 mg/dL [facility] Interpretation and review of laboratory results Abnormal [facility] Potassium [Moles/Vol] 3.9 mmol/L 3.7 - 5.3 mmol/L [facility] Protein [Mass/Vol] 7.5 g/dL 6.4 - 8.3 g/dL [facility] Sodium [Moles/Vol] 140 mmol/L 135 - 144 mmol/L [facility] Urea nitrogen [Mass/Vol] 16 mg/dL 6 - 20 mg/dL [facility] Urea nitrogen/Creatinine (Bld) [Mass ratio] 24 High 9 - 20 [facility] Basic Metabolic Panelon 10-02 Anion gap [Moles/Vol] 15 mmol/L 9 - 17 mmol/L [facility] Calcium [Mass/Vol] 9.4 mg/dL 8.6 - 10. 4 mg/dL [facility] Chloride [Moles/Vol] 104 mmol/L 98 - 107 mmol/L [facility] CO2 [Moles/Vol] 20 mmol/L 20 - 31 mmol/L [facility] Creatinine [Mass/Vol] 0.77 mg/dL 0.50 - 0.90 mg/dL [facility] GFR/1.73 sq M.predicted MDRD (S/P/Bld) [Vol rate/Area] - PINF [facility] Comment on above: Effective Jul 03, 2022 These results are not intended for use in patients <18 years of age. eGFR results are calculated without a race factor using the 2020 CKD-EPI equation. Careful clinical correlation is recommended, particularly when comparing to results calculated using previous equations. The CKD-EPI equation is less accurate in patients with extremes of muscle mass, extra-renal metabolism of creatine, excessive creatine ingestion, or following therapy that affects renal tubular secretion. Glucose [Mass/Vol] 112 mg/dL High 70 - 99 mg/dL [facility] Interpretation and review of laboratory results Abnormal [facility] Potassium [Moles/Vol] 3.8 mmol/L 3.7 - 5.3 mmol/L [facility] Sodium [Moles/Vol] 139 mmol/L 135 - 144 mmol/L [facility] Urea nitrogen (BldV) [Mass/Vol] 10 mg/dL 6 - 20 mg/dL [facility] Urea nitrogen/Creatinine (Bld) [Mass ratio] 13 9 - 20 [facility] Basic Metabolic Profon 10-25 Anion gap [Moles/Vol] 15 mmol/L Normal -17 [facility] Comment on above: Performed By: #### L IPR, GLYHGB, FT4 #### [facility] [address] [place] [address] Sanding Line Operator: Guido Jhaveri MD #### BMP, TSH, LIVP, VALPC, CBC #### [facility] [address] [place] [address] Sanding Line Operator: Tray Diaz MD BUN/CRE Ratio 13 Normal - [facility] Comment on above: Performed By: #### L IPR, GLYHGB, FT4 #### [facility] [address] [address] Sanding Line Operator: Guido Jhaveri MD #### BMP, TSH, LIVP, VALPC, CBC #### [address] [place], [place] [phone] Sanding Line Operator: Tray Diaz MD Calcium [Mass/Vol] 9.4 mg/dL Normal 8.6-10.4 [facility] Comment on above: Performed By: #### L IPR, GLYHGB, FT4 #### [address] [address] Sanding Line Operator: Guido Jhaveri MD #### BMP, TSH, LIVP, VALPC, CBC #### [address] [place] [phone] Sanding Line Operator: Tray Diaz MD Chloride [Moles/Vol] 104 mmol/L Normal 98-107 [facility] Comment on above: Performed By: #### L IPR, GLYHGB, FT4 #### [address] [address] Sanding Line Operator: Guido Jhaveri MD #### BMP, TSH, LIVP, VALPC, CBC #### [address] [place] [phone] Sanding Line Operator: Tray Diaz MD CO2 [Moles/Vol] 20 mmol/L Normal 20-31 [facility] Comment on above: Performed By: #### L IPR, GLYHGB, FT4 #### [address] [address] Sanding Line Operator: Guido Jhaveri MD #### BMP, TSH, LIVP, VALPC, CBC #### [address] [place] [address] Sanding Line Operator: Tray Diaz MD Creatinine [Mass/Vol] 0.77 mg/dL Normal 0.50-0.90 [facility] Comment on above: Performed By: #### L IPR, GLYHGB, FT4 #### [facility] [address] [place], [place] [phone] Sanding Line Operator: Guido Jhaveri MD #### BMP, TSH, LIVP, VALPC, CBC #### [facility] [address] [place] [address] [place] [address] Sanding Line Operator: Tray Diaz MD GFR/1.73 sq M.predicted among non-blacks MDRD (S/P/Bld) [Vol rate/Area] mL/min/{1.73_m2} Normal >60 [facility] Comment on above: Result Comment: Effective Jul 03, 2022 These results are not intended for use in patients <18 years of age. eGFR results are calculated without a race factor using the 2020 CKD-EPI equation. Careful clinical correlation is recommended, particularly when comparing to results calculated using previous equations. The CKD-EPI equation is less accurate in patients with extremes of muscle mass, extra-renal metabolism of creatine, excessive creatine ingestion, or following therapy that affects renal tubular secretion. Performed By: #### L IPR, GLYHGB, FT4 #### [address] [phone] Sanding Line Operator: Guido Jhaveri MD #### BMP, TSH, LIVP, VALPC, CBC #### [address] [place] [address] Sanding Line Operator: Tray Diaz MD Glucose [Mass/Vol] 112 mg/dL High 70-99 [facility] Comment on above: Performed By: #### L IPR, GLYHGB, FT4 #### [facility] [address] [place], [place] [phone] Sanding Line Operator: Guido Jhaveri MD #### BMP, TSH, LIVP, VALPC, CBC #### [facility] [address] [place] [address] [place] [address] Sanding Line Operator: Tray Diaz MD Potassium [Moles/Vol] 3.8 mmol/L Normal 3.7-5.3 [facility] Comment on above: Performed By: #### L IPR, GLYHGB, FT4 #### [address] [address] Sanding Line Operator: Guido Jhaveri MD #### BMP, TSH, LIVP, VALPC, CBC #### [address] [place] [phone] Sanding Line Operator: Tray Diaz MD Sodium [Moles/Vol] 139 mmol/L Normal 135-144 [facility] Comment on above: Performed By: #### L IPR, GLYHGB, FT4 #### [address] [phone] Sanding Line Operator: Guido Jhaveri MD #### BMP, TSH, LIVP, VALPC, CBC #### [address] [place] [phone] Sanding Line Operator: Tray Diaz MD Urea nitrogen [Mass/Vol] 10 mg/dL Normal 6-20 [facility] Comment on above: Performed By: #### L IPR, GLYHGB, FT4 #### [address] [address] Sanding Line Operator: Guido Jhaveri MD #### BMP, TSH, LIVP, VALPC, CBC #### [address] [place] [phone] Sanding Line Operator: Tray Diaz MD CBCon 10-25-2022 Erythrocyte distribution width (RBC) [Ratio] 12.6 % Normal 11.8-14.4 [facility] Comment on above: Performed By: #### L IPR, GLYHGB, FT4 #### [address] [phone] Sanding Line Operator: Guido Jhaveri MD #### BMP, TSH, LIVP, VALPC, CBC #### [address] [place] [address] Sanding Line Operator: Tray Diaz MD Hematocrit (Bld) [Volume fraction] 46.5 % Normal 36.3-47.1 [facility] Comment on above: Performed By: #### L IPR, GLYHGB, FT4 #### [address] [phone] Sanding Line Operator: Guido Jhaveri MD #### BMP, TSH, LIVP, VALPC, CBC #### [address] [place] [phone] Sanding Line Operator: Tray Diaz MD Hemoglobin (Bld) [Mass/Vol] 15.6 g/dL High 11.9-15.1 [facility] Comment on above: Performed By: #### L IPR, GLYHGB, FT4 #### [address] [phone] Sanding Line Operator: Guido Jhaveri MD #### BMP, TSH, LIVP, VALPC, CBC #### [address] [place] [address] Sanding Line Operator: Tray Diaz MD MCH (RBC) [Entitic mass] 28.8 pg Normal 25.2-33.5 [facility] Comment on above: Performed By: #### L IPR, GLYHGB, FT4 #### [address] [phone] Sanding Line Operator: Guido Jhaveri MD #### BMP, TSH, LIVP, VALPC, CBC #### [address] [place] [address] Sanding Line Operator: Tray Diaz MD MCHC (RBC) [Mass/Vol] 33.5 g/dL Normal 28.4-34.8 [facility] Comment on above: Performed By: #### L IPR, GLYHGB, FT4 #### [address] [place] [address] Sanding Line Operator: Guido Jhaveri MD #### BMP, TSH, LIVP, VALPC, CBC #### [address] [place] [phone] Sanding Line Operator: Tray Diaz MD MCV (RBC) [Entitic vol] 85.8 fL Normal 82.6-102.9 [facility] Comment on above: Performed By: #### L IPR, GLYHGB, FT4 #### [address] [address] Sanding Line Operator: Guido Jhaveri MD #### BMP, TSH, LIVP, VALPC, CBC #### [address] [place] [phone] Sanding Line Operator: Tray Diaz MD NRBC Automated 0.0 per 100 WBC Normal 0.0 [facility] Comment on above: Performed By: #### L IPR, GLYHGB, FT4 #### [address] [address] Sanding Line Operator: Guido Jhaveri MD #### BMP, TSH, LIVP, VALPC, CBC #### [address] [place] [phone] Sanding Line Operator: Tray Diaz MD Platelet mean volume (Bld) [Entitic vol] 11.0 fL Normal 8.1-13.5 [facility] Comment on above: Performed By: #### L IPR, GLYHGB, FT4 #### [address] [address] Sanding Line Operator: Guido Jhaveri MD #### BMP, TSH, LIVP, VALPC, CBC #### [address] [place] [phone] Sanding Line Operator: Tray Diaz MD Platelets (Bld) [#/Vol] 239 10*3/uL Normal 138-453 [facility] Comment on above: Performed By: #### L IPR, GLYHGB, FT4 #### [place] [address] [place], [place] 2005[address] Sanding Line Operator: Guido Jhaveri MD #### BMP, TSH, LIVP, VALPC, CBC #### [address] [place] [address] Sanding Line Operator: Tray Diaz MD RBC (Bld) [#/Vol] 5.42 10*6/uL High 3.95-5.11 [facility] Comment on above: Performed By: #### L IPR, GLYHGB, FT4 #### [address] [phone] Sanding Line Operator: Guido Jhaveri MD #### BMP, TSH, LIVP, VALPC, CBC #### [address] [place] [phone] Sanding Line Operator: Tray Diaz MD WBC (Bld) [#/Vol] 9.3 10*3/uL Normal 3.5-11.3 [facility] Comment on above: Performed By: #### L IPR, GLYHGB, FT4 #### [address] [phone] Sanding Line Operator: Guido Jhaveri MD #### BMP, TSH, LIVP, VALPC, CBC #### [address] [place] [address] Sanding Line Operator: Tray Diaz MD Hematocrit (Bld) [Volume fraction] 46.5 % 36.3 - 47.1 % [facility] Hemoglobin (Bld) [Mass/Vol] 15.6 g/dL High 11.9 - 15.1 g/dL [facility] Interpretation and review of laboratory results Abnormal [facility] MCH (RBC) [Entitic mass] 28.8 pg 25.2 - 33.5 pg [facility] MCHC (RBC) [Mass/Vol] 33.5 g/dL 28.4 - 34.8 g/dL [facility] MCV (RBC) [Entitic vol] 85.8 fL 82.6 - 102.9 fL [facility] NRBC Automated 0.0 0.0 per 100 WBC [facility] Platelet distribution width (Bld) [Ratio] 12.6 % 11.8 - 14.4 % [facility] Platelet mean volume (Bld) [Entitic vol] 11.0 fL 8.1 - 13.5 fL [facility] Platelets (Bld) [#/Vol] 239 10*3/uL [facility] RBC (Bld) [#/Vol] 5.42 10*6/uL High 3.95 - 5.11 m/uL [facility] WBC (Bld) [#/Vol] 9.3 10*3/uL [facility] Hemoglobin A1Con 10-25-2022 Glucose [Mass/Vol] 114 mg/dL Normal [facility] Comment on above: Result Comment: The ADA and AACC recommend providing the estimated average glucose result to permit better patient understanding of their HBA1c result. Performed By: #### C P #### [facility] [address] [place] [address] [place] [address] Sanding Line Operator: Tray Diaz MD #### GLYHGB #### [facility] Shut Down [address] [place] [address] Sanding Line Operator: Guido Jhaveri MD HbA1c (Bld) [Mass fraction] 5.6 % Normal 4.0-6.0 [facility] Comment on above: Performed By: #### C P #### [facility] [address] [place] [address] Sanding Line Operator: Tray Diaz MD #### GLYHGB #### [place] [address] [place], [place] [phone] Sanding Line Operator: Guido Jhaveri MD Glucose [Mass/Vol] 114 mg/dL [facility] Comment on above: The ADA and AACC rec ommend providing the estimated average glucose result to permit better patient understanding of their HBA1c result. HbA1c (Bld) [Mass fraction] 5.6 % 4.0 - 6.0 % [facility] Hepatic Function Panelon Albumin [Mass/Vol] 4.5 g/dL 3.5 - 5.2 g/dL [facility] Albumin/Globulin [Mass ratio] 1.5 {ratio} 1.0 - 2.5 [facility] ALP (Bld) [Catalytic activity/Vol] 76 U/L 35 - 104 U/L [facility] ALT [Catalytic activity/Vol] 29 U/L 5 - 33 U/L [facility] AST [Catalytic activity/Vol] 20 U/L NINF - 32 U/L [facility] Bilirubin [Mass/Vol] 0.3 mg/dL 0.3 - 1.2 mg/dL [facility] Bilirubin, Indirect Can not be calculated 0.0 - 1.0 mg/dL [facility] Bilirubin.indirect [Mass/Vol] mg/dL NINF - 0.3 mg/dL [facility] Protein [Mass/Vol] 7.6 g/dL 6.4 - 8.3 g/dL [facility] Lipid Panelon 10-25-2022 Cholesterol [Mass/Vol] 95 mg/dL NINF - 200 mg/dL [facility] Comment on above: Cholesterol Guidelines: <200 Desirable 200-240 Borderline >240 Undesirable Cholesterol in HDL [Mass/Vol] 26 mg/dL Low 40 - PINF mg/dL [facility] Comment on above: HDL Guidelines: <40 Undesirable 40-59 Borderline >59 Desirable Cholesterol in LDL [Mass/Vol] 46 mg/dL 0 - 130 mg/dL [facility] Comment on above: LDL Guidelines: <100 Desirable 100-129 Near to/above Desirable 130-159 Borderline >159 Undesirable Direct (measured) LDL and calculated LDL are not interchangeable tests. Cholesterol.total/C holesterol in HDL [Mass ratio] 3.7 {ratio} NINF - 5 [facility] Interpretation and review of laboratory results Abnormal [facility] Triglyceride [Mass/Vol] 117 mg/dL NINF - 150 mg/dL [facility] Comment on above: Triglyceride Guidelines: <150 Desirable 150-199 Borderline 200-499 High >499 Very high Based on AHA Guidelines for fasting triglyceride, July 2012. [facility] Lipid Profileon 10-25-2022 Cholesterol [Mass/Vol] 95 mg/dL Normal <200 [facility] Comment on above: Result Comment: Cholesterol Guidelines: <200 Desirable 200-240 Borderline >240 Undesirable Performed By: #### L IPR, GLYHGB, FT4 #### [address] [place] [address] Sanding Line Operator: Guido Jhaveri MD #### BMP, TSH, LIVP, VALPC, CBC #### [facility] [address] [place] [address] Sanding Line Operator: Tray Diaz MD Cholesterol in HDL [Mass/Vol] 26 mg/dL Low >40 [facility] Comment on above: Result Comment: HDL Guidelines: <40 Undesirable 40-59 Borderline >59 Desirable Performed By: #### L IPR, GLYHGB, FT4 #### [address] [address] Sanding Line Operator: Guido Jhaveri MD #### BMP, TSH, LIVP, VALPC, CBC #### [facility] [address] [place] [address] Sanding Line Operator: Tray Diaz MD Cholesterol in LDL [Mass/Vol] 46 mg/dL Normal 0-130 [facility] Comment on above: Result Comment: LDL Guidelines: <100 Desirable 100-129 Near to/above Desirable 130-159 Borderline >159 Undesirable Direct (measured) LDL and calculated LDL are not interchangeable tests. Performed By: #### L IPR, GLYHGB, FT4 #### [facility] [address] [place] [address] Sanding Line Operator: Guido Jhaveri MD #### BMP, TSH, LIVP, VALPC, CBC #### [facility] [address] [place], [place] [phone] Sanding Line Operator: Tray Diaz MD Cholesterol.total/C holesterol in HDL [Mass ratio] 3.7 {ratio} Normal <5 [facility] Comment on above: Performed By: #### L IPR, GLYHGB, FT4 #### [address] [place] [address] Sanding Line Operator: Guido Jhaveri MD #### BMP, TSH, LIVP, VALPC, CBC #### [facility] [address] [place], [place] [phone] Sanding Line Operator: Tray Diaz MD Triglyceride [Mass/Vol] 117 mg/dL Normal <150 [facility] Comment on above: Result Comment: Triglyceride Guidelines: <150 Desirable 150-199 Borderline 200-499 High >499 Very high Based on AHA Guidelines for fasting triglyceride, July 2012. Performed By: #### L IPR, GLYHGB, FT4 #### [address] [address] Sanding Line Operator: Guido Jhaveri MD #### BMP, TSH, LIVP, VALPC, CBC #### [facility] [address] [place] [address] [place], [place] [phone] Sanding Line Operator: Tray Diaz MD Liver Profileon 10-25-2022 Albumin [Mass/Vol] 4.5 g/dL Normal 3.5-5.2 [facility] Comment on above: Performed By: #### L IPR, GLYHGB, FT4 #### [address] [place] [address] Sanding Line Operator: Guido Jhaveri MD #### BMP, TSH, LIVP, VALPC, CBC #### [facility] [address] [place] [address] [place], [place] [phone] Sanding Line Operator: Tray Diaz MD Albumin/Glob Ratio 1.5 Normal 1.0-2.5 [facility] Comment on above: Performed By: #### L IPR, GLYHGB, FT4 #### [address] [place] [address] Sanding Line Operator: Guido Jhaveri MD #### BMP, TSH, LIVP, VALPC, CBC #### [facility] [address] [place] [address] [place] [place], [place] [phone] Sanding Line Operator: Tray Diaz MD Alkaline Phos 76 U/L Normal 35-104 [facility] Comment on above: Performed By: #### L IPR, GLYHGB, FT4 #### [address] [address] Sanding Line Operator: Guido Jhaveri MD #### BMP, TSH, LIVP, VALPC, CBC #### [address] [place], [place] [phone] Sanding Line Operator: Tray Diaz MD ALT [Catalytic activity/Vol] 29 U/L Normal 5-33 [facility] Comment on above: Performed By: #### L IPR, GLYHGB, FT4 #### [address] [address] Sanding Line Operator: Guido Jhaveri MD #### BMP, TSH, LIVP, VALPC, CBC #### [address] [place], [place] [phone] Sanding Line Operator: Tray Diaz MD AST [Catalytic activity/Vol] 20 U/L Normal <32 [facility] Comment on above: Performed By: #### L IPR, GLYHGB, FT4 #### [address] [address] Sanding Line Operator: Guido Jhaveri MD #### BMP, TSH, LIVP, VALPC, CBC #### [facility] [address] [place] [address] [place] [place], [place] [phone] Sanding Line Operator: Tray Diaz MD Bilirubin [Mass/Vol] 0.3 mg/dL Normal 0.3-1.2 [facility] Comment on above: Performed By: #### L IPR, GLYHGB, FT4 #### [address] [address] Sanding Line Operator: Guido Jhaveri MD #### BMP, TSH, LIVP, VALPC, CBC #### [address] [place] [phone] Sanding Line Operator: Tray Diaz MD Bilirubin, Indirect Can not be calculated Normal 0.0-1 .0 [facility] Comment on above: Performed By: #### L IPR, GLYHGB, FT4 #### [address] [address] Sanding Line Operator: Guido Jhaveri MD #### BMP, TSH, LIVP, VALPC, CBC #### [address] [place] [phone] Sanding Line Operator: Tray Diaz MD Bilirubin.indirect [Mass/Vol] mg/dL Normal <0.3 [facility] Comment on above: Performed By: #### L IPR, GLYHGB, FT4 #### [address] [phone] Sanding Line Operator: Guido Jhaveri MD #### BMP, TSH, LIVP, VALPC, CBC #### [address] Dr. [place] [id number] Sanding Line Operator: Tray Diaz MD Protein [Mass/Vol] 7.6 g/dL Normal 6.4-8.3 [facility] Comment on above: Performed By: #### L IPR, GLYHGB, FT4 #### [address] [id number] Sanding Line Operator: Guido Jhaveri MD #### BMP, TSH, LIVP, VALPC, CBC #### [address] [place] [address] Sanding Line Operator: Tray Diaz MD No Panel Informationon 10-25 [facility] T4, Freeon 10-25-2022 Thyroxine, Free 1.31 ng/dL 0.93 - 1.70 ng/dL [facility] TSHon 10-25-2022 TSH Qn 1.45 m[IU]/L [facility] Thyroid Stim. Horm.on 2022 Thyroid Stim. Horm. 1.45 uIU/mL Normal 0.30-5.00 [facility] Comment on above: Performed By: #### L IPR, GLYHGB, FT4 #### [address] [id number] Sanding Line Operator: Guido Jhaveri MD #### BMP, TSH, LIVP, VALPC, CBC #### [address] [place] [address] Sanding Line Operator: Tray Diaz MD Thyroxine, Freeon 10-25-2022 Thyroxine, Free 1.31 ng/dL Normal 0.93-1.70 [facility] Comment on above: Performed By: #### L IPR, GLYHGB, FT4 #### [address] [id number] Sanding Line Operator: Guido Jhaveri MD #### BMP, TSH, LIVP, VALPC, CBC #### [address] [place] [address] Sanding Line Operator: Tray Diaz MD Valproic Acidon 5 Valproic Acid <3 Low 50-125 [facility] Comment on above: Performed By: #### L IPR, GLYHGB, FT4 #### [address] [id number] Sanding Line Operator: Guido Jhaveri MD #### BMP, TSH, LIVP, VALPC, CBC #### [facility] [address] [place] [address] Sanding Line Operator: Tray Diaz MD Valproic Acid Level, Totalon 10-25-2022 Interpretation and review of laboratory results Abnormal [facility] Valproic Acid Lvl <3 Low 50 - 125 ug/mL [facility] Basic Metabolic Panelon - Anion gap [Moles/Vol] 10 mmol/L 9 - 17 mmol/L [facility] Calcium [Mass/Vol] 9.4 mg/dL 8.6 - 10. 4 mg/dL [facility] Chloride [Moles/Vol] 108 mmol/L High 98 - 107 mmol/L [facility] CO2 [Moles/Vol] 22 mmol/L 20 - 31 mmol/L [facility] Creatinine [Mass/Vol] 0.79 mg/dL 0.5 - 0.9 mg/dL [facility] GFR/1.73 sq M.predicted MDRD (S/P/Bld) [Vol rate/Area] - PINF [facility] Comment on above: Effective Jul 03, 2022 These results are not intended for use in patients <18 years of age. eGFR results are calculated without a race factor using the 2020 CKD-EPI equation. Careful clinical correlation is recommended, particularly when comparing to results calculated using previous equations. The CKD-EPI equation is less accurate in patients with extremes of muscle mass, extra-renal metabolism of creatine, excessive creatine ingestion, or following therapy that affects renal tubular secretion. Glucose [Mass/Vol] 116 mg/dL High 70 - 99 mg/dL [facility] Interpretation and review of laboratory results Abnormal [facility] Potassium [Moles/Vol] 3.8 mmol/L 3.7 - 5.3 mmol/L [facility] Sodium [Moles/Vol] 140 mmol/L 135 - 144 mmol/L [facility] Urea nitrogen (BldV) [Mass/Vol] 14 mg/dL 6 - 20 mg/dL [facility] Urea nitrogen/Creatinine (Bld) [Mass ratio] 18 9 - 20 [facility] CBCon 07-13-2022 Hematocrit (Bld) [Volume fraction] 41.8 % 36.3 - 47.1 % [facility] Hemoglobin (Bld) [Mass/Vol] 14.3 g/dL 11.9 - 15.1 g/dL [facility] MCH (RBC) [Entitic mass] 28.9 pg 25.2 - 33.5 pg [facility] MCHC (RBC) [Mass/Vol] 34.2 g/dL 28.4 - 34.8 g/dL [facility] MCV (RBC) [Entitic vol] 84.4 fL 82.6 - 102.9 fL [facility] NRBC Automated 0.0 0.0 per 100 WBC [facility] Platelet distribution width (Bld) [Ratio] 12.8 % 11.8 - 14.4 % [facility] Platelet mean volume (Bld) [Entitic vol] 10.6 fL 8.1 - 13.5 fL [facility] Platelets (Bld) [#/Vol] 259 10*3/uL [facility] RBC (Bld) [#/Vol] 4.95 10*6/uL 3.95 - 5.11 m/uL [facility] WBC (Bld) [#/Vol] 8.2 10*3/uL [facility] Hemoglobin A1Con 07-13-2022 Glucose [Mass/Vol] 117 mg/dL [facility] Comment on above: The ADA and AACC rec ommend providing the estimated average glucose result to permit better patient understanding of their HBA1c result. HbA1c (Bld) [Mass fraction] 5.7 % 4 - 6 % [facility] Hepatic Function Panelon Albumin [Mass/Vol] 4.1 g/dL 3.5 - 5.2 g/dL [facility] Albumin/Globulin [Mass ratio] 1.3 {ratio} 1 - 2.5 [facility] ALP (Bld) [Catalytic activity/Vol] 80 U/L 35 - 104 U/L [facility] ALT [Catalytic activity/Vol] 35 U/L High 5 - 33 U/L [facility] AST [Catalytic activity/Vol] 21 U/L NINF - 32 U/L [facility] Bilirubin [Mass/Vol] mg/dL Low 0.3 - 1.2 mg/dL [facility] Bilirubin, Indirect Can not be calculated 0 - 1 mg/dL [facility] Bilirubin.indirect [Mass/Vol] mg/dL NINF - 0.31 mg/dL [facility] Interpretation and review of laboratory results Abnormal [facility] Protein [Mass/Vol] 7.2 g/dL 6.4 - 8.3 g/dL [facility] Lipid Panelon 07-13-2022 Cholesterol [Mass/Vol] 116 mg/dL NINF - 200 mg/dL [facility] Comment on above: Cholesterol Guidelines: <200 Desirable 200-240 Borderline >240 Undesirable Cholesterol in HDL [Mass/Vol] 28 mg/dL Low 40 - PINF mg/dL [facility] Comment on above: HDL Guidelines: <40 Undesirable 40-59 Borderline >59 Desirable Cholesterol in LDL [Mass/Vol] 53 mg/dL 0 - 130 mg/dL [facility] Comment on above: LDL Guidelines: <100 Desirable 100-129 Near to/above Desirable 130-159 Borderline >159 Undesirable Direct (measured) LDL and calculated LDL are not interchangeable tests. Cholesterol.total/C holesterol in HDL [Mass ratio] 4.1 {ratio} NINF - 5 [facility] Interpretation and review of laboratory results Abnormal [facility] Triglyceride [Mass/Vol] 177 mg/dL High NINF - 150 mg/dL [facility] Comment on above: Triglyceride Guidelines: <150 Desirable 150-199 Borderline 200-499 High >499 Very high Based on AHA Guidelines for fasting triglyceride, July 2012. [facility] Patient Instructionson 04-05 Agent Producer Authentication Interface Message Text Dental extraction Instructions Biting on Gauze to Control Bleeding Bleeding may occur for some time after you extraction. In most cases this bleeding can be easily controlled by placing a piece of clean gauze DIRECTLY over the empty tooth socket. Then make sure that you bite firmly on this gauze for 30 to 60 minutes. Use the gauze we supplied to you in the bag. Wash your hands with soap and water before touching the gauze and placing it in your mouth. Place the used gauze from your mouth in a plastic bag and dispose the bag in a trash container. Make sure to wash your hands again when you are done touching the used gauze and before touching anything else. If a small amount of bleeding continues after 45 minutes then repeat these instructions. Sometimes biting a tea bag may be helpful in controlling minor bleeding. Very light bleeding for 2 days is not uncommon. If heavy bleeding is still persistent during normal clinic hours than call the Clinic where the extraction was done to speak with an oral surgeon. [facility] [phone]. HELPING THE HEALING PROCESS AND STOPPING THE BLEEDING FOR THE NEXT 24 HOURS (1 DAY) AFTER THE EXTRACTION: DO NOT RINSE YOUR MOUTH OR SPIT 2. DO NOT DRINK ANY HOT LIQUIDS SUCH SOUP, COFFEE, TEA, HOT CHOCOLATE AVOID HEAVY LIFTING, BENDING OR OTHER STENUOUS EXERCISES SLEEP WITH 2 PILLOWS OR IN A RECLINER CHAIR. KEEPING HEAD ELEVATED WILL REDUCE SWELLING. SUTURE WILL DISSOLVE IN 7-10 DAYS FOR THE NEXT 72 HOURS (3 DAYS) AFTER THE EXTRACTION: DO NOT SMOKE OR DRINK ALCOHOL DO NOT DRINK OR SUCK FROM A STRAW OR ANYTHING ELSEDO NOT DRINK. Stitches may have been placed to help healing. Your surgeon will advise you if you need to return to have them removed. TOOTH BRUSHING On the day of the extraction it is best to avoid brushing the teeth right next to the extraction site. On the next day you can start brushing ALL your teeth but in a gentle fashion. Remember to not rinse strongly because it may cause you to start bleeding from the extraction site again. SWELLING AND PAIN After the extraction you may feel some pain and experience some swelling. An ice pack of unopened bag of frozen peas of corn applied to the area should keep the swelling down. Put the ice pack on you face for 10 minutes and then leave it off for the next 20 minutes. You can repeat this patter as you feel is necessary for up to 24 hours after the extraction. To avoid injury, make sure that adults or children avoid biting or chewing on their lips of cheeks, which may be numb following an extraction. If your pain or swelling seems to be getting worse or you feel as though something is not right then call your dentist, as directed above. ANTIBIOTICS AND PAIN MEDICATION If antibiotics have been prescribed then you should take them as directed; this includes taking all the antibiotic (or liquid) pills that were prescribed. If you don't finish them completely a serious infection could result. You may have little of no discomfort after the extraction. If you have minor pain then you may want to take acetaminophen (Tylenol) or ibuprofen (Motrin). It is very important that before taking any medications that you read and follow the directions and warnings that come with these products so you know whether they are right for you and you situation. If you have any questions on whether these medications are right for you, first talk to your doctor or pharmacist before taking the medication. Your surgeon may have given you a written prescription for pain relief. It is important that if you decide to take it you read and understand all the precautions, warnings and directions that come with the medication. If you have any questions on whether the medication is right for you, first talk to your doctor or pharmacist before taking the medication. The pain medication prescription that your dentist gave you may contain a narcotic (like codeine). If so, most narcotic pain medications may upset your stomach. If so, then it is best to take them with food. The pain medication prescription that you were given can also make you drowsy or make you act strangely. If so, you should limit or stop activities such as driving a motor vehicle, operate machinery or other activities that require your full attention. EATING AND DRINKING A soft or liquid diet may be best for you after a difficult extraction. For a simpler extraction just make sure you do your chewing with those teeth that are NOT near the extraction site. POSTOPERATIVE INSTRUCTION AFTER SEDATION / GENERAL ANESTHESIA If you had general anesthesia of IV sedation, do not drive or operate machinery for 24 hours. A responsible adult should be with you for the remainder of the day. When starting oral intake, be sure to consume CLEAR LIQUIDS first. Clear liquids consist of water, Sprite, joaquin louisa, Jell-O, and non-pulp containing juices such as c (more content not included)... Normal [employer] [facility] Progress Noteson 04-05-2022 Agent Producer Authentication Interface Message Text Attestation signed by Hugo Pearce DMD, MD at 04/05/2022 10:20 AM Teaching Physician Note: I saw and evaluated the patient. I personally obtained the claire and critical portions of the history and physical exam. I reviewed the resident's documentation and discussed the patient with the resident. I agree with the resident's medical decision making as documented in the resident's note. Hugo Pearce DMD, MD ORAL SURGERY PROCEDURE ROOM NOTE [facility] Surgical Product(s): Routine extraction teeth # 19, # 30 and # 32 and Surgical extraction teeth # 17 PMH: Reviewed, no change. Antibiotic prophylaxis indicated/taken: no Discussed risks, benefits, and alternatives of treatment. All of the patient's questions were answered, and informed consent was obtained: yes Pre-op Diagnosis: Chronic dental caries extending to pulp [[id number]] Caries PROCEDURE TIME OUT CHECK LIST 1. Radiograph is correctly matched to the patient,diagnostic quality, correctly oriented for laterality: Yes 2. Time out performed confirming correct surgical site and/or involved teeth verified by the patient and the surgeon: Yes Anesthesia: 2% Xylocaine with 1/100,000 epinephrine: 4 carpules and 0.5% Bupivicaine: 2 carpules Attending: Hugo Pearce DMD, MD Resident: Bradford Jennings DMD, MD Circulating Nurse: None Assistants: ANGELA Javier Procedure in Detail: bite block and throat screen placed for procedure and removed on compeltion. B/l IA and long buccal blocks performed with above listed anesthesia. Tooth #17 required release of a distobuccal hockey stick shaped incision with a 15 blade. Tooth #17, 19, 30, 32 were all then removed with simple elevator and forcep technique. The sockets were curretted and irrigated with normal saline. Soft tissue at #17 site was sutured with a single interrupted 3-0 chromic gut suture. Bite pressure on gauze applied for hemostasis. Patient tolerated procedure well. Complications: none Specimens: Intact teeth Estimated blood loss: Minimal (<5 ml) Disposition: Home Fernanda Jennings DMD, MD Normal [employer] [facility] Agent Producer Authentication Interface Message Text Normal [employer] [facility] Telephone Encounteron 2021 Agent Producer Authentication Interface Message Text #17, #19, #30, #32 Clinic 60 Mins [place] OK to schedule - no PA needed. Normal [facility] [employer] [facility] Patient Instructionson 02-01 Agent Producer Authentication Interface Message Text Dental extraction Instructions Biting on Gauze to Control Bleeding Bleeding may occur for some time after you extraction. In most cases this bleeding can be easily controlled by placing a piece of clean gauze DIRECTLY over the empty tooth socket. Then make sure that you bite firmly on this gauze for 30 to 60 minutes. Use the gauze we supplied to you in the bag. Wash your hands with soap and water before touching the gauze and placing it in your mouth. Place the used gauze from your mouth in a plastic bag and dispose the bag in a trash container. Make sure to wash your hands again when you are done touching the used gauze and before touching anything else. If a small amount of bleeding continues after 45 minutes then repeat these instructions. Sometimes biting a tea bag may be helpful in controlling minor bleeding. Very light bleeding for 2 days is not uncommon. If heavy bleeding is still persistent during normal clinic hours than call the Clinic where the extraction was done to speak with an oral surgeon. [facility] [phone]. HELPING THE HEALING PROCESS AND STOPPING THE BLEEDING FOR THE NEXT 24 HOURS (1 DAY) AFTER THE EXTRACTION: 1. DO NOT RINSE YOUR MOUTH OR SPIT 2. DO NOT DRINK ANY HOT LIQUIDS SUCH SOUP, COFFEE, TEA, HOT CHOCOLATE 2. AVOID HEAVY LIFTING, BENDING OR OTHER STENUOUS EXERCISES 3. SLEEP WITH 2 PILLOWS OR IN A RECLINER CHAIR. KEEPING HEAD ELEVATED WILL REDUCE SWELLING. 4. SUTURE WILL DISSOLVE IN 7-10 DAYS FOR THE NEXT 72 HOURS (3 DAYS) AFTER THE EXTRACTION: 1. DO NOT SMOKE OR DRINK ALCOHOL 2. DO NOT DRINK OR SUCK FROM A STRAW OR ANYTHING ELSEDO NOT DRINK. Stitches may have been placed to help healing. Your surgeon will advise you if you need to return to have them removed. TOOTH BRUSHING On the day of the extraction it is best to avoid brushing the teeth right next to the extraction site. On the next day you can start brushing ALL your teeth but in a gentle fashion. Remember to not rinse strongly because it may cause you to start bleeding from the extraction site again. SWELLING AND PAIN After the extraction you may feel some pain and experience some swelling. An ice pack of unopened bag of frozen peas of corn applied to the area should keep the swelling down. Put the ice pack on you face for 10 minutes and then leave it off for the next 20 minutes. You can repeat this patter as you feel is necessary for up to 24 hours after the extraction. To avoid injury, make sure that adults or children avoid biting or chewing on their lips of cheeks, which may be numb following an extraction. If your pain or swelling seems to be getting worse or you feel as though something is not right then call your dentist, as directed above. ANTIBIOTICS AND PAIN MEDICATION If antibiotics have been prescribed then you should take them as directed; this includes taking all the antibiotic (or liquid) pills that were prescribed. If you don't finish them completely a serious infection could result. You may have little of no discomfort after the extraction. If you have minor pain then you may want to take acetaminophen (Tylenol) or ibuprofen (Motrin). It is very important that before taking any medications that you read and follow the directions and warnings that come with these products so you know whether they are right for you and you situation. If you have any questions on whether these medications are right for you, first talk to your doctor or pharmacist before taking the medication. Your surgeon may have given you a written prescription for pain relief. It is important that if you decide to take it you read and understand all the precautions, warnings and directions that come with the medication. If you have any questions on whether the medication is right for you, first talk to your doctor or pharmacist before taking the medication. The pain medication prescription that your dentist gave you may contain a narcotic (like codeine). If so, most narcotic pain medications may upset your stomach. If so, then it is best to take them with food. The pain medication prescription that you were given can also make you drowsy or make you act strangely. If so, you should limit or stop activities such as driving a motor vehicle, operate machinery or other activities that require your full attention. EATING AND DRINKING A soft or liquid diet may be best for you after a difficult extraction. For a simpler extraction just make sure you do your chewing with those teeth that are NOT near the extraction site. POSTOPERATIVE INSTRUCTION AFTER SEDATION / GENERAL ANESTHESIA If you had general anesthesia of IV sedation, do not drive or operate machinery for 24 hours. A responsible adult should be with you for the remainder of the day. When starting oral intake, be sure to consume CLEAR LIQUIDS first. Clear liquids consist of water, Sprite, joaquin louisa, Jell-O, and non-pulp containing (more content not included)... Normal [employer] Progress Noteson 02-01-2022 Agent Producer Authentication Interface Message Text Attestation signed by Hugo Pearce DMD, MD at 02/08/2022 10:13 AM Teaching Physician Note: I saw and evaluated the patient. I personally obtained the claire and critical portions of the history and physical exam. I reviewed the resident's documentation and discussed the patient with the resident. I agree with the resident's medical decision making as documented in the resident's note. Hugo Pearce DMD, MD [facility] PATIENT VISIT CHIEF COMPLAINT: I need to to have the rest of my bad teeth extracted. HISTORY OF PRESENT ILLNESS: 21 year old female presents with referral for extraction of teeth 1,2,16,17,19,30,32. Patient states that she was in a lot of pain and had teeth # 1,2,16 extracted with another provider. PAST MEDICAL HISTORY: 21 yrs old White female D2M Hypercholesterolemia Hypothyroidism GERD System History Cardiovascular Negative history Pulmonary Negative history Hematologic Negative history Renal Negative history Hepatic Negative history Endocrine Negative history Musculoskeletal Negative history Neurological Negative history Infectious Disease Negative history Psychiatric Negative history Reproductive Negative history MEDICATIONS: Latuda Statin Prazosin SSRI Levothyroxine Metformin Omeprazole ALLERGIES: Patient has no known allergies. SURGICAL HX: No past surgical history on file. SOCIAL HX: Tobacco: Never CLINICAL EXAMINATION Extraoral examination: No sign of infection, redness or tenderness to palpation. No facial asymmetry nor swelling No appreciable lymphadenopathy No popping, clicking or crepitus of TMJs bilaterally, No tenderness to palpation of temporalis and masseter Asymptomatic function Range of motion within normal limits No facial numbness Intraoral examination: Mucosa moist and pink Oropharynx clear No pathological soft lesions appreciated Occlusion stable with no step off Caries noted # 19,30,32. RADIOGRAPHIC INTERPRETATION: [employer] Film taken on 02/01/2022, and Retained in our clinic files Caries #17,19,30,32 DIAGNOSIS: Chronic dental caries extending to pulp [[id number]] TREATMENT: Exam and goyal PLAN: Extraction of teeth # 17,19,30,32 under local anesthesia in clinic. Magali Schaeffer DDS Normal [employer] [facility] Basic Metabolic Panelon 10-01 Anion gap [Moles/Vol] 17 mmol/L 9 - 17 mmol/L [facility] Calcium [Mass/Vol] 9.3 mg/dL 8.6 - 10. 4 mg/dL [facility] Chloride [Moles/Vol] 103 mmol/L 98 - 107 mmol/L [facility] CO2 [Moles/Vol] 21 mmol/L 20 - 31 mmol/L [facility] Creatinine [Mass/Vol] 0.77 mg/dL 0.50 - 0.90 mg/dL [facility] [employer] GFR >60 >60 mL/min [facility] Health GFR Non- >60 >60 mL/min [facility] [employer] Glucose [Mass/Vol] 101 mg/dL High 70 - 99 mg/dL [facility] Interpretation and review of laboratory results Abnormal [facility] [employer] Potassium [Moles/Vol] 4.3 mmol/L 3.7 - 5.3 mmol/L [facility] [employer] Sodium [Moles/Vol] 141 mmol/L 135 - 144 mmol/L [facility] Urea nitrogen (BldV) [Mass/Vol] 11 mg/dL 6 - 20 mg/dL [facility] Urea nitrogen/Creatinine (Bld) [Mass ratio] 14 [facility] [employer] Hepatic Function Panelon Albumin [Mass/Vol] 4.3 g/dL 3.5 - 5.2 g/dL [facility] Albumin/Globulin [Mass ratio] 1.7 {ratio} [facility] ALP (Bld) [Catalytic activity/Vol] 84 U/L 35 - 104 U/L [facility] ALT [Catalytic activity/Vol] 31 U/L 5 - 33 U/L [facility] AST [Catalytic activity/Vol] 22 U/L <32 [facility] Bilirubin [Mass/Vol] 0.38 mg/dL 0.3 - 1.2 mg/dL [facility] Bilirubin, Indirect Can not be calculated 0.00 - 1.00 mg/dL [facility] Bilirubin.indirect [Mass/Vol] mg/dL <0.31 mg/dL [facility] Free PSA/Total PSA [Mass fraction] 6.9 g/dL 6.4 - 8.3 g/dL [facility] Globulin NOT REPORTED 1.5 - 3.8 g/dL [facility] Laboratory - Chemistry and C hemistry - challengeon 10-12-2021 GFR/1.73 sq M.predicted MDRD (S/P/Bld) [Vol rate/Area] [facility] Comment on above: Average GFR for 20-2 9 years old: 116 mL/min/1.73sq m Chronic Kidney Disease: <60 mL/min/1.73sq m Kidney failure: <15 mL/min/1.73sq m eGFR calculated using average adult body mass. Additional eGFR calculator available at: [email or web address]_crcl_[email or web address].htm Stage 1: Some kidney damage normal GFR Stage 2: Mild kidney damage GFR 60-89 Stage 3: Moderate kidney damage GFR 30-59 Stage 4: Severe kidney damage GFR 15-29 Stage 5: Severe kidney damage GFR <15 ESRD - chronic treatment by dialysis or transplant Lipid Panelon 10-12-2021 Cholesterol [Mass/Vol] 101 mg/dL <200 [facility] Comment on above: Cholesterol Guidelines: <200 Desirable 200-240 Borderline >240 Undesirable Cholesterol in HDL [Mass/Vol] 29 mg/dL Low >40 [facility] Comment on above: HDL Guidelines: <40 Undesirable 40-59 Borderline >59 Desirable Cholesterol in LDL [Mass/Vol] 42 mg/dL 0 - 130 mg/dL [facility] Comment on above: LDL Guidelines: <100 Desirable 100-129 Near to/above Desirable 130-159 Borderline >159 Undesirable Direct (measured) LDL and calculated LDL are not interchangeable tests. Cholesterol in VLDL [Mass/Vol] NOT REPORTED 1 - 30 mg/dL [facility] Cholesterol.total/C holesterol in HDL [Mass ratio] 3.5 {ratio} <5 [facility] Interpretation and review of laboratory results Abnormal [facility] Triglyceride [Mass/Vol] 151 mg/dL High <150 [facility] Comment on above: Triglyceride Guidelines: <150 Desirable 150-199 Borderline 200-499 High >499 Very high Based on AHA Guidelines for fasting triglyceride, July 2012. [facility] No Panel Informationon 10-12 [facility] Valproic acid level, totalon 10-12-2021 Interpretation and review of laboratory results Abnormal [facility] Valproic Acid Lvl <3 Low 50 - 125 ug/mL [facility] Valproic Date last dose NOT REPORTED [facility] Valproic Dose amount NOT REPORTED [facility] Valproic Time last dose NOT REPORTED [facility] PotassiumOrdered By: Heath Ellis on 05-18-2021 Interpretation and review of laboratory results Abnormal [facility] Work Phone: Potassium [Moles/Vol] 3.6 mmol/L Low 3.7 - 5.3 mmol/L [facility] Work Phone: [facility] Work Phone: Basic Metabolic PanelOrdered By: Irina Noguera on 04-13-2021 Anion gap [Moles/Vol] 16 mmol/L 9 - 17 mmol/L [facility] Work Phone: Calcium [Mass/Vol] 9.2 mg/dL 8.6 - 10. 4 mg/dL [facility] Phone: Chloride [Moles/Vol] 102 mmol/L 98 - 107 mmol/L [facility] Work Phone: CO2 [Moles/Vol] 19 mmol/L Low 20 - 31 mmol/L [facility] Phone: Creatinine [Mass/Vol] 0.76 mg/dL 0.50 - 0.90 mg/dL [facility] Phone: GFR >60 >60 mL/min [facility] Phone: GFR Non- >60 >60 mL/min [facility] Phone: Glucose [Mass/Vol] 105 mg/dL High 70 - 99 mg/dL [facility] Phone: Interpretation and review of laboratory results Abnormal [facility] Phone: Potassium [Moles/Vol] 3.6 mmol/L Low 3.7 - 5.3 mmol/L [facility] Phone: Sodium [Moles/Vol] 137 mmol/L 135 - 144 mmol/L [facility] Phone: Urea nitrogen (BldV) [Mass/Vol] 11 mg/dL 6 - 20 mg/dL [facility] Phone: Urea nitrogen/Creatinine (Bld) [Mass ratio] 14 [facility] Phone: CBCOrdered By: Irina jean on 04-13-2021 Hematocrit (Bld) [Volume fraction] 44.0 % 36.3 - 47.1 % [facility] Phone: Hemoglobin.gastroin testinal spec 1 Ql (Stl) 14.4 g/dL 11.9 - 15.1 g/dL [facility] Phone: Interpretation and review of laboratory results Abnormal [facility] Phone: MCH (RBC) [Entitic mass] 27.7 pg 25.2 - 33.5 pg [facility] Phone: MCHC (RBC) [Mass/Vol] 32.7 g/dL 28.4 - 34.8 g/dL [facility] Phone: MCV (RBC) [Entitic vol] 84.8 fL 82.6 - 102.9 fL [facility] Phone: NRBC Automated 0.0 0.0 per 100 WBC [facility] Phone: Platelet distribution width (Bld) [Ratio] 12.2 % 11.8 - 14.4 % [facility] Phone: Platelet mean volume (Bld) [Entitic vol] 10.8 fL 8.1 - 13.5 fL [facility] Phone: Platelets (Bld) [#/Vol] 204 10*3/uL [facility] Phone: RBC (Bld) [#/Vol] 5.19 10*6/uL High 3.95 - 5.11 m/uL [facility] Phone: WBC (Bld) [#/Vol] 9.8 10*3/uL [facility] Phone: [facility] Phone: Hemoglobin [id number] By: Rosales Noguera on 04-13-2021 Glucose [Mass/Vol] 117 mg/dL [facility] Phone: Comment on above: The ADA and AACC rec ommend providing the estimated average glucose result to permit better patient understanding of their HBA1c result. HbA1c (Bld) [Mass fraction] 5.7 % 4.0 - 6.0 % [facility] Phone: [facility] Phone: Hepatic Function PanelOrdere d By: Irina Noguera on 04-13-2021 Albumin [Mass/Vol] 4.1 g/dL 3.5 - 5.2 g/dL [facility] Phone: Albumin/Globulin [Mass ratio] 1.3 {ratio} [facility] Phone: ALP (Bld) [Catalytic activity/Vol] 84 U/L 35 - 104 U/L [facility] Phone: ALT [Catalytic activity/Vol] 22 U/L 5 - 33 U/L [facility] Phone: AST [Catalytic activity/Vol] 16 U/L <32 [facility] Phone: Bilirubin [Mass/Vol] 0.31 mg/dL 0.3 - 1.2 mg/dL [facility] Phone: Bilirubin, Indirect CANNOT BE CALCULATED 0.00 - 1.00 mg/dL [facility] Phone: Bilirubin.indirect [Mass/Vol] mg/dL <0.31 mg/dL [facility] Phone: Free PSA/Total PSA [Mass fraction] 7.2 g/dL 6.4 - 8.3 g/dL [facility] Phone: Globulin NOT REPORTED 1.5 - 3.8 g/dL [facility] Phone: Laboratory - Chemistry and C hemistry - challengeOrdered By: Irina Noguera on 04-13-2021 GFR/1.73 sq M.predicted MDRD (S/P/Bld) [Vol rate/Area] [facility] Phone: Comment on above: Average GFR for 20-2 9 years old: 116 mL/min/1.73sq m Chronic Kidney Disease: <60 mL/min/1.73sq m Kidney failure: <15 mL/min/1.73sq m eGFR calculated using average adult body mass. Additional eGFR calculator available at: http://www.[email or web address]_crcl_2012.htm Stage 1: Some kidney damage normal GFR Stage 2: Mild kidney damage GFR 60-89 Stage 3: Moderate kidney damage GFR 30-59 Stage 4: Severe kidney damage GFR 15-29 Stage 5: Severe kidney damage GFR <15 ESRD - chronic treatment by dialysis or transplant Lipid PanelOrdered By: Eleno Noguera on 04-13-2021 Cholesterol [Mass/Vol] 93 mg/dL <200 [facility] Phone: Comment on above: Cholesterol Guidelines: <200 Desirable 200-240 Borderline >240 Undesirable Cholesterol in HDL [Mass/Vol] 29 mg/dL Low >40 [facility] Phone: Comment on above: HDL Guidelines: <40 Undesirable 40-59 Borderline >59 Desirable Cholesterol in LDL [Mass/Vol] 43 mg/dL 0 - 130 mg/dL [facility] Phone: Comment on above: LDL Guidelines: <100 Desirable 100-129 Near to/above Desirable 130-159 Borderline >159 Undesirable Direct (measured) LDL and calculated LDL are not interchangeable tests. Cholesterol in VLDL [Mass/Vol] NOT REPORTED 1 - 30 mg/dL [facility] Phone: Cholesterol.total/C holesterol in HDL [Mass ratio] 3.2 {ratio} <5 [facility] Phone: Interpretation and review of laboratory results Abnormal [facility] Phone: Triglyceride [Mass/Vol] 106 mg/dL <150 [facility] Phone: Comment on above: Triglyceride Guidelines: <150 Desirable 150-199 Borderline 200-499 High >499 Very high Based on AHA Guidelines for fasting triglyceride, July 2012. [facility] Phone: No Panel InformationOrdered By: Irina Noguera on 04-13-2021 [facility] Phone: Valproic acid level, totalOr dered By: Irina Noguera on 04-13-2021 Interpretation and review of laboratory results Abnormal [facility] Phone: Valproic Acid Lvl <3 Low 50 - 125 ug/mL [facility] Phone: Valproic Date last dose NOT REPORTED [facility] Phone: Valproic Dose amount NOT REPORTED [facility]: Val[facility] Time last dose NOT REPORTED [facility] Work Phone: [facility] Work Phone: Urinalysis with Microscopico n 04-28-2020 Amorphous, UA NOT REPORTED None [facility] [employer] [place] Bacteria, UA TRACE Abnormal None [facility] [employer] Bilirubin Urine Negative NEGATIVE [facility] [place] Casts UA NOT REPORTED /LPF [facility] [place] Color, UA YELLOW YELLOW [facility] [place], [place] Crystals, UA NOT REPORTED None /HPF [facility] [employer] Epithelial Cells UA 5 TO 10 [facility] [place] Glucose, Ur Negative NEGATIVE [facility] [place] Interpretation and review of laboratory results Abnormal [facility] [place] Ketones Ql (U) Negative NEGATIVE [facility] [employer] [place] Leukocyte esterase Test strip Ql (U) Negative NEGATIVE [facility] [employer] Mucus, UA NOT REPORTED None [facility] [place] Nitrite, Urine Negative NEGATIVE [facility] [place], [place] Other Observations UA NOT REPORTED NOT REQ. [facility] [place] pH, UA 6.0 [facility] [employer] [place] Protein (U) [Mass/Vol] Negative NEGATIVE [facility] [employer] RBC (U) [#/Vol] 0 TO 2 [facility] [employer] Renal Epithelial, UA NOT REPORTED 0 /HPF [facility] [place] Specific Withams, UA 1.020 [facility] [place] Trichomonas, UA NOT REPORTED None [facility] [place] Turbidity UA CLEAR CLEAR [facility] [place], [place] Urinalysis Comments NOT REPORTED [facility] [employer] [place] Urine Hgb Negative NEGATIVE [facility] [place] Urobilinogen, Urine Normal Normal [facility] [place] WBC, UA 0 TO 2 [facility] [employer] Yeast, UA NOT REPORTED None [facility], [place] - [facility] [employer] COVID-19 PCRon 04-18-2020 SARS-CoV-2, RD Not Detected Normal Not Detected [facility] Comment on above: Result Comment: This test was developed and its performance characteristics determined by [employer]. This test has not been FDA cleared or approved. This test has been authorized by FDA under an Emergency Use Authorization (EUA). This test is only authorized for the duration of time the declaration that circumstances exist justifying the authorization of the emergency use of in vitro diagnostic tests for detection of SARS-CoV-2 virus and/or diagnosis of COVID-19 infection under section 564(b)(1) of the Act, 21 U.S.C. 360bbb-3(b)(1), unless the authorization is terminated or revoked sooner. When diagnostic testing is negative, the possibility of a false negative result should be considered in the context of a patient's recent exposures and the presence of clinical signs and symptoms consistent with COVID-19. An individual without symptoms of COVID-19 and who is not shedding SARS-CoV-2 virus would expect to have a negative (not detected) result in this assay. Performed By: #### C VDPCR #### [facility] [address] [place] [address] Osvaldomisael Chavez BNPon 09-14-2019 Natriuretic peptide B (Bld) [Mass/Vol] 37.0 pg/mL Normal <=450.0 [facility] Comment on above: Performed By: #### C MP, BNP, TSH, TROP #### [facility] [address] [place] [address] Osvaldo Kathy CBC AUTO DIFFon 09-14-2019 Basophils (Bld) [#/Vol] 0.1 103/ul Normal 0.0-0.1 [facility] Comment on above: Performed By: #### C BC #### [facility] [address] [place] [address] Osvaldo Kathy Basophils/100 WBC (Bld) 0.4 % Normal 0.2-2.0 [facility] Comment on above: Performed By: #### C BC #### [facility] [address] [place] [address] Osvaldo Kathy Eosinophils (Bld) [#/Vol] 0.0 103/ul Normal 0.0-0.7 [facility] Comment on above: Performed By: #### C BC #### [facility] [address] [place] [address] Osvaldo Kathy Eosinophils/100 WBC (Bld) 0.2 % Critically low 0.9-7.0 [facility] Comment on above: Performed By: #### C BC #### [facility] [address] [place], [place] [address] Osvaldo Kathy Erythrocyte distribution width (RBC) [Ratio] 12.2 % Normal 11.0-15.0 [facility] Comment on above: Performed By: #### C BC #### [facility] [address] [place] [address] Osvaldo Kathy Hematocrit (Bld) [Volume fraction] 46.2 % Normal 36.0-48.0 [facility] Comment on above: Performed By: #### C BC #### [facility] [address] [place] [address] Osvaldo Kathy Hemoglobin (Bld) [Mass/Vol] 15.6 g/dL Normal 12.0-16.0 [facility] Comment on above: Performed By: #### C BC #### [facility] [address] [place] [address] Osvaldo Kathy IG # 0.04 10e3/ul Critically high 0.00-0.03 [facility] Comment on above: Performed By: #### C BC #### [facility] [address] [place] [address] Osvaldo Kathy IG % 0.3 % Normal 0.0-0.5 [facility] Comment on above: Performed By: #### C BC #### [facility] [address] [place] [address] Osvaldo Kathy Lymphocytes (Bld) [#/Vol] 4.5 103/ul Critically high 1.2-3.8 [facility] Comment on above: Performed By: #### C BC #### [facility] [address] [place], [place] [address] Osvaldo Kathy Lymphocytes/100 WBC (Bld) 38.6 % Normal 20.5-60.0 [facility] Comment on above: Performed By: #### C BC #### [facility] [address] [place] [address] Osvaldo Kathy MANUAL DIFF REQ NO Normal [facility] Comment on above: Performed By: #### C BC #### [facility] [address] [place], [place] [address] Osvaldomisael Chavez MCH (RBC) [Entitic mass] 28.5 pg Normal 26.7-34.0 [facility] Comment on above: Performed By: #### C BC #### [facility] [address] [place], [place] [address] Osvaldomisael Chavez MCHC (RBC) [Mass/Vol] 33.8 g/dL Normal 29.9-35.2 [facility] Comment on above: Performed By: #### C BC #### [facility] [address] [place] [address] Osvaldomisael Chavez MCV (RBC) [Entitic vol] 84.3 fL Normal 81.0-99.0 [facility] Comment on above: Performed By: #### C BC #### [facility] [address] [place] [address] Osvaldo Kathy Monocytes (Bld) [#/Vol] 0.6 103/ul Normal 0.3-0.8 [facility] Comment on above: Performed By: #### C BC #### [facility] [address] [place], [place] [address] Osvaldo Chavez Monocytes/100 WBC (Bld) 5.5 % Normal 1.7-12.0 [facility] Comment on above: Performed By: #### C BC #### [facility] [address] [place], [place] [address] Osvaldo Kathy Neutrophils (Bld) [#/Vol] 6.4 103/ul Normal 1.4-6.5 [facility] Comment on above: Performed By: #### C BC #### [facility] [address] [place], [place] [address] Osvaldo Kathy Neutrophils/100 WBC (Bld) 55.0 % Normal 43.0-75.0 [facility] Comment on above: Performed By: #### C BC #### [facility] [address] [place], [place] [address] Osvaldo Kathy Platelet mean volume (Bld) [Entitic vol] 9.8 fL Normal 9.5-13.5 [facility] Comment on above: Performed By: #### C BC #### [facility] [address] [place] [address] Osvaldo Chavez Platelets (Bld) [#/Vol] 293 103/ul Normal 150-450 [facility] Comment on above: Performed By: #### C BC #### [facility] [address] [place] [address] Osvaldo Chavez RBC (Bld) [#/Vol] 5.48 106/ul Critically high 4.20-5.40 [facility] Comment on above: Performed By: #### C BC #### [facility] [address] [place] [address] Osvaldo Chavez WBC (Bld) [#/Vol] 11.7 103/ul Critically high 4.0-11.0 [facility] Comment on above: Performed By: #### C BC #### [facility] [address] [place] [address] Osvaldo Chavez ER URINE PROFILEon 9 Bilirubin [Mass/Vol] Negative Normal NEGATIVE [facility] Comment on above: Performed By: #### E RUR #### [facility] [address] [place] [address] Osvaldomisael Chavez BLOOD Negative Normal NEGATIVE [facility] Comment on above: Performed By: #### E RUR #### [facility] [address] [place] [address] Osvaldo Kathy Clarity (U) CLEAR Normal [facility] Comment on above: Performed By: #### E RUR #### [facility] [address] [place], [place] [address] Osvaldo Ktahy Color (U) YELLOW Normal YELLOW [facility] Comment on above: Performed By: #### E RUR #### [facility] [address] [place], [place] [address] Osvaldo Kathy ERUAHD A micrscopic examina tion will be performed if indicated. Normal [facility] Comment on above: Performed By: #### E RUR #### [facility] [address] [place], [place] [address] Osvaldo Kathy Glucose [Mass/Vol] Negative Normal NEGATIVE [facility] Comment on above: Performed By: #### E RUR #### [facility] [address] [place], [place] [address] Osvaldo Kathy Ketones Ql (U) Negative Normal NEGATIVE [facility] Comment on above: Performed By: #### E RUR #### [facility] [address] [place] [address] Osvaldo Kathy Nitrite Ql (U) Negative Normal NEGATIVE [facility] Comment on above: Performed By: #### E RUR #### [facility] [address] [place] [address] Osvaldo Kathy pH (Bld) 6.0 Normal 5-9 [facility] Comment on above: Performed By: #### E RUR #### [facility] [address] [place] [address] Osvaldo Kathy Protein (U) [Mass/Vol] Negative Normal [facility] Comment on above: Performed By: #### E RUR #### [facility] [address] [place] [address] Osvaldo Kathy SPEC GRAVITY 1.015 Normal 1.005-<=1. 025 [facility] Comment on above: Performed By: #### E RUR #### [facility] [address] [place] [address] Osvaldo Kathy UR MICRO IND NOT INDICATED Normal [facility] Comment on above: Performed By: #### E RUR #### [facility] [address] [place], [place] [address] Osvaldo Kathy Urobilinogen Qn (U) 0.2 EU/dl Normal [facility] Comment on above: Performed By: #### E RUR #### [facility] [address] [place], [place] [address] Osvaldo Kathy WBC (Bld) [#/Vol] Negative Normal NEGATIVE [facility] Comment on above: Performed By: #### E RUR #### [facility] [address] [id number] Osvaldomisael Bautistaen PROF 14(COMP METB)on 019 Albumin [Mass/Vol] 4.1 g/dL Normal 3.5-5.0 [facility] Comment on above: Performed By: #### C MP, BNP, TSH, TROP #### [facility] [address] [id number] Osvaldo Kathy Albumin/Globulin [Mass ratio] 1.0 {ratio} Normal [facility] Comment on above: Performed By: #### C MP, BNP, TSH, TROP #### [facility] [address] [id number] Osvaldo Kathy ALP [Catalytic activity/Vol] 80 U/L Normal 38-126 [facility] Comment on above: Performed By: #### C MP, BNP, TSH, TROP #### [facility] [address] [address] Osvaldo Kathy ALT [Catalytic activity/Vol] 51 U/L Normal 9-52 [facility] Comment on above: Performed By: #### C MP, BNP, TSH, TROP #### [facility] [address] [id number] Osvaldo Kathy Anion gap [Moles/Vol] 16.6 mmol/L Normal [facility] Comment on above: Performed By: #### C MP, BNP, TSH, TROP #### [facility] [address] [address] Osvaldo Kathy AST [Catalytic activity/Vol] 21 U/L Normal 14-36 [facility] Comment on above: Performed By: #### C MP, BNP, TSH, TROP #### [facility] [address] [id number] Osvaldo Kathy Bilirubin Ql (U) 0.3 mg/dL Normal 0.2-1.3 [facility] Comment on above: Performed By: #### C MP, BNP, TSH, TROP #### [facility] [address] [id number] Osvaldo Kathy Calcium [Mass/Vol] 9.2 mg/dL Normal 8.4-10.2 [facility] Comment on above: Performed By: #### C MP, BNP, TSH, TROP #### [facility] [address] [place] [address] Osvaldo Kathy Chloride [Moles/Vol] 103 mmol/L Normal 98-107 [facility] Comment on above: Performed By: #### C MP, BNP, TSH, TROP #### [facility] [address] [place] [address] Osvaldo Kathy CO2 [Moles/Vol] 25.1 mmol/L Normal 22.0-30.0 [facility] Comment on above: Performed By: #### C MP, BNP, TSH, TROP #### [facility] [address] [place] [address] Osvaldo Kathy Creatinine [Mass/Vol] 0.86 mg/dL Normal 0.52-1.04 [facility] Comment on above: Performed By: #### C MP, BNP, TSH, TROP #### [facility] [address] [place] [address] Osvaldo Kathy EGFR-AF AUSTRALIAN >60 Normal >=60 [facility] Comment on above: Performed By: #### C MP, BNP, TSH, TROP #### [facility] [address] [place] [address] Osvaldo Kathy EGFR-NON AF AUSTRALIAN >60 Normal >=60 [facility] Comment on above: Performed By: #### C MP, BNP, TSH, TROP #### [facility] [address] [place] [address] Osvaldo Kathy Globulin (S) [Mass/Vol] 4.2 g/dL Normal [facility] Comment on above: Performed By: #### C MP, BNP, TSH, TROP #### [facility] [address] [place] [address] Osvaldo Kathy Glucose [Mass/Vol] 85 mg/dL Normal 74-106 [facility] Comment on above: Performed By: #### C MP, BNP, TSH, TROP #### [facility] [address] [place], [place] [address] Osvaldo Kathy Potassium [Moles/Vol] 3.7 mmol/L Normal 3.4-5.0 [facility] Comment on above: Performed By: #### C MP, BNP, TSH, TROP #### [facility] [address] [id number] Osvaldo Kathy Protein [Mass/Vol] 8.3 g/dL Critically high 6.1-8.2 [facility] Comment on above: Performed By: #### C MP, BNP, TSH, TROP #### [facility] [address] [place], [place] [address] Osvaldo Kathy Sodium [Moles/Vol] 141 mmol/L Normal 137-145 [facility] Comment on above: Performed By: #### C MP, BNP, TSH, TROP #### [facility] [address] [place] [address] Osvaldo Kathy Urea nitrogen [Mass/Vol] 9.0 mg/dL Normal 7.0-17.0 [facility] Comment on above: Performed By: #### C MP, BNP, TSH, TROP #### [facility] [address] [place], [place] [address] Osvaldo Kathy Urea nitrogen/Creatinine [Mass ratio] 10.5 mg/mg Normal [facility] Comment on above: Performed By: #### C MP, BNP, TSH, TROP #### [facility] [address] [place], [place] [address] Osvaldo Kathy PROTIMEon 09-14-2019 INR Coag (PPP) [Relative time] 0.96 {INR} Normal [facility] Comment on above: Performed By: #### P T, PTT #### [facility] [address] [place], [place] [address] Osvaldo Kathy PT Coag (PPP) [Time] PLEASE NOTE: NORMAL RANGE CHANGE 06-18-2014 DUE TO REAGENT LOT CHANGE Normal [facility] Comment on above: Performed By: #### P T, PTT #### [facility] [address] [place], [place] [address] Osvaldo Kathy PT Coag (PPP) [Time] SEE BELOW Normal [facility] Comment on above: Result Comment: LAWANDA RED INR: 2.0 - 3.0 CONDITIONS NOT LISTED BELOW 2.5 - 3.5 FOR PROSTHETIC HEART VALVE REPLACEMENT 2.5 - 3.5 RECURRENT THROMBOSIS Performed By: #### P T, PTT #### [facility] [address] [place] [address] Osvaldo Chavez PT Coag (PPP) [Time] 10.0 s Normal 9.0-11.6 [facility] Comment on above: Performed By: #### P T, PTT #### [facility] [address] [place] [address] Osvaldo Chavez PTTon 09-14-2019 aPTT Coag (Bld) [Time] PLEASE NOTE: NORMAL RANGE CHANGE 08-25-2015 DUE TO REAGENT LOT CHANGE Normal [facility] Comment on above: Performed By: #### P T, PTT #### [facility] [address] [place] [address] Osvaldo Chavez aPTT Coag (Bld) [Time] 26.4 s Normal 22.3-36.2 [facility] Comment on above: Performed By: #### P T, PTT #### [facility] [address] [place] [address] Osvaldo Chavez TROPONIN - Ion 09-14-2019 Troponin I.cardiac [Mass/Vol] SEE BELOW Normal [facility] Comment on above: Result Comment: <0.0 34 ng/ml NEGATIVE 0.034-0.119 INDETERMINATE 0.120 AMI CUT OFF Performed By: #### C MP, BNP, TSH, TROP #### [facility] [address] [place] [address] Osvaldo Chavez Troponin I.cardiac [Mass/Vol] ng/mL Normal <=0.034 [facility] Comment on above: Performed By: #### C MP, BNP, TSH, TROP #### [facility] [address] [place] [address] Osvaldo Chavez TSHon 09-14-2019 TSH Qn 3.598 uIU/mL Normal 0.470-4.68 0 [facility] Comment on above: Performed By: #### C MP, BNP, TSH, TROP #### [facility] [address] [place], [place] [address] Osvaldo Chavez TSH Qn SEE BELOW Normal [facility] Comment on above: Result Comment: <0.3 4 UIU/ml HYPERTHYROID 0.34-5.60 UIU/ml EUTHYROID >5.60 UIU/ml HYPOTHYROID Performed By: #### C MP, BNP, TSH, TROP #### [facility] [address] [place], [place] [address] Osvaldo Chavez XR CHEST 2 Von 09-14-2019 XR CHEST 2 V Patient: PEPE MAGANA Exam Date: 09/14/2019 : 2000 Gender:F Ordering : DR DOV WEINSTEIN . Admission #: [id number] Family : Order #: [id number] CLICK HERE TO VIEW EXAM RADIOLOGY REPORT PROCEDURE: RADIOGRAPH CHEST 2 VIEWS COMPARISON: None. INDICATIONS: Acute medial upper chest pain for three days. FINDINGS: LUNGS: No significant pulmonary parenchymal abnormalities. VASCULATURE: No increased pulmonary vasculature. PLEURA: No pneumothorax, effusion, or pleural thickening. CARDIAC: No cardiomegaly or cardiac silhouette abnormality. MEDIASTINUM: No visible mass or adenopathy. BONES: No fracture or visible bone lesion. OTHER: Negative. CONCLUSION: No acute disease. Dictated by: Wilton Leger M.D. on 09/14/2019 at 22:31 Approved by: Wilton Leger M.D. on 09/14/2019 at 22:32 Normal [facility] C Urineon 12-05-2017 C Urine Final Report: 1,000 cfu/ml Streptococcus agalactiae (Group B) in Moderate Mixed skin contaminants Normal [facility] Comment on above: Performed By: #### 2 [id number] ####HEATHER OscJoku[address]054 [place] [address] Acetamnphn Lvlon 11-30-2017 Acetaminophen mass conc <10 Normal 0-15 [facility] Comment on above: Result Comment: Tyle nol - Therapeutic 10-30 ug/ml Toxic 4 hr. Post ingestion >150 ug/ml Toxic 8hr Post ingestion >75 ug/ml Toxic 12hr. Post ingestion >40 ug/ml Performed By: #### 2 [id number] ####HEATHER ChavezLtgJqdf3465 [place] [address] Auto Diffon 11-30-2017 Basophils Auto #/vol (Bld) 0.0 E3/mcL Normal 0.0-0.2 [facility] Comment on above: Order Comment: Order Added by Discern Expert. Performed By: #### 2 [id number] ####HEATHER Calderon[address] [place] [address] Basophils/100 WBC Auto (Bld) 0.3 % Normal 0.0-2.0 [facility] Comment on above: Order Comment: Order Added by Discern Expert. Performed By: #### 2 120509 ####HEATHER [address]on[address] [place] [address] Eos Absolute 0.7 E3/mcL Normal 0.0-0.7 [facility] Comment on above: Order Comment: Order Added by Discern Expert. Performed By: #### 2 150367 ####HEATHER Calderon[address] [place] [address] Eosinophils/100 leukocytes 6.1 % Normal 0.0-11.0 [facility] Comment on above: Order Comment: Order Added by Discern Expert. Performed By: #### 2 645047 ####HEATHER [address]on[address] [place] [address] Lymphocytes 2.9 E3/mcL Normal 1.2-3.4 [facility] Comment on above: Order Comment: Order Added by Discern Expert. Performed By: #### 2 621311 ####HEATHER [address]on[address] [place] [address] Lymphocytes/100 leukocytes 27.4 % Normal 20.0-55.0 [facility] Comment on above: Order Comment: Order Added by Discern Expert. Performed By: #### 2 382200 ####HEATHER [address]on[address] [place] [address] [place] Absolute 0.8 E3/mcL High 0.0-0.7 [facility] Comment on above: Order Comment: Order Added by Discern Expert. Performed By: #### 2 529768 ####HEATHER [address]on[address] [place] [address] Monocytes/100 leukocytes 7.5 % Normal 0.0-10.0 [facility] Comment on above: Order Comment: Order Added by Discern Expert. Performed By: #### 2 170785 ####HEATHER DeoXsfo8564 [place] [address] Neutro Absolute 6.3 E3/mcL Normal 1.4-6.5 [facility] Comment on above: Order Comment: Order Added by Discern Expert. Performed By: #### 2 998916 ####HEATHER OleAhjb4245 [place] [address] Neutro Auto 58.7 % Normal 37.0-75.0 [facility] Comment on above: Order Comment: Order Added by Discern Expert. Performed By: #### 2 542660 ####HEATHER OihPzbg8685 [place] [address] BMPon 11-30-2017 BUN/Creatinine Ratio 15.0 ratio Normal 5.4-30.0 [facility] Comment on above: Performed By: #### 2 498563 ####HEATHER OwnVlfs1559 [place] [address] Creatinine 0.8 mg/dL Normal 0.6-1.3 [facility] Comment on above: Performed By: #### 2 798328 ####HEATHER VweFsbd8722 [place] [address] Urea nitrogen 12 mg/dL Normal 7-18 [facility] Comment on above: Performed By: #### 2 817111 ####HEATHER VbeNnjg7952 [place] [address] Calcium 9.0 mg/dL Normal 8.4-10.2 [facility] Comment on above: Performed By: #### 2 130615 ####HEATHER SmcAtnj5004 [place] [address] Chloride 105 mmol/L Normal 98-107 [facility] Comment on above: Performed By: #### 2 908647 ####HEATHER LgvMwmz5676 [place] [address] CO2 22.3 mmol/L Low 24.0-30.0 [facility] Comment on above: Performed By: #### 2 996813 ####HEATHER RkzPvzt23[address] [place] 0888305 Glucose mass conc 116 mg/dL High 70-99 [facility] Comment on above: Performed By: #### 2 744145 ####HEATHER PqpGcsy7233 [place] [address] Potassium molar conc 3.7 mmol/L Normal 3.5-5.1 [facility] Comment on above: Performed By: #### 2 671010 ####HEATHER MnuSysl8840 [place] [address] Sodium 137 mmol/L Normal 136-145 [facility] Comment on above: Performed By: #### 2 438902 ####HEATHER UmmSbom2291 [place] [address] CBC w/ Auto Diffon 8 Erythrocyte distribution width Auto Ratio (RBC) 13.6 % Normal 11.5-14.5 [facility] Comment on above: Performed By: #### 2 063379 ####HEATHER QdcZavf7115 [place] [address] Erythrocytes (RBC) 5.19 E6/mcL Normal 3.90-5.40 [facility] Comment on above: Performed By: #### 2 982901 ####HEATHER QlwCfls3684 [place] [address] Hematocrit (HCT) 44.4 % Normal 36.0-48.0 [facility] Comment on above: Performed By: #### 2 005885 ####HEATHER VufKtey8854 [place] [address] Hemoglobin mass conc (Bld) 15.3 g/dL Normal 12.0-16.0 [facility] Comment on above: Performed By: #### 2 273012 ####HEATHER JocJxho2374 [place] [address] MCH 29.5 pg Normal 27.0-31.0 [facility] Comment on above: Performed By: #### 2 209644 ####HEATHER TuoHzeg0267 [place] [address] MCHC mass conc (RBC) 34.5 g/dL Normal 33.0-37.0 [facility] Comment on above: Performed By: #### 2 697702 ####HEATHER WwoWylu5937 [place] [address] MCV 85.5 fL Normal 78.0-100.0 [facility] Comment on above: Performed By: #### 2 819195 ####HEATHER Calderon[address] [place] [address] Platelet mean volume (PMV) 7.7 fL Normal 7.4-11.0 [facility] Comment on above: Performed By: #### 2 296470 ####HEATHER DerFddn2756 [place] [address] Platelets 298 E3/mcL Normal 130-400 [facility] Comment on above: Performed By: #### 2 534652 ####HEATHER [address]on[address] [place] [address] WBC (Leukocytes) 10.8 E3/mcL Normal 3.6-11.0 [facility] Comment on above: Performed By: #### 2 088388 ####HEATHER SnlErrf7100 [place] [address] Ethanolon 11-30-2017 Ethanol Lvl <5 Normal 0-15 [facility] Comment on above: Result Comment: SAMP LES WITH CONCENTRATIONS <15 MG/DL SHOULD BEINTERPRETED NEGATIVE. FOR MEDICAL USE ONLY Performed By: #### 2 508382 ####HEATHER TrkOorn5138 [place] [address] Hep Func Panelon 11-30-2017 Alanine aminotransferase (ALT) 76 Int._Unit/L High 10-40 [facility] Comment on above: Performed By: #### 2 865021 ####HEATHER KixJnns3537 [place] [address] Albumin 3.8 g/dL Normal 3.2-5.0 [facility] Comment on above: Performed By: #### 2 643531 ####HEATHER GadKefg3354 [place] [address] Albumin/Globulin Ratio 1.1 {ratio} Normal 1.1-1.9 [facility] Comment on above: Performed By: #### 2 115936 ####HEATHER BwlTvgs0536 [place] [address] Alk Phos 83 Int._Unit/L Normal 42-121 [facility] Comment on above: Performed By: #### 2 758099 ####HEATHER [address]on[address] [place] [address] Aspartate aminotransferase (AST) 37 Int._Unit/L Normal 10-42 [facility] Comment on above: Performed By: #### 2 698379 ####HEATHER [address] [place] [address] Bili Direct <.10 Normal .00-.20 [facility] Comment on above: Performed By: #### 2 889234 ####HEATHER [address] [place] [address] Bili Indirect >0.2 Normal [facility] Comment on above: Result Comment: No e stablished ranges available for the Indirect Biliruben. Performed By: #### 2 259354 ####HEATEHR [address]on[address] [place] [address] Bili Total 0.3 mg/dL Normal 0.2-1.0 [facility] Comment on above: Performed By: #### 2 890041 ####HEATHER [address]on[address] [place] [address] Globulin 3.4 g/dL Normal 2.0-4.0 [facility] Comment on above: Performed By: #### 2 198389 ####HEATHER [address]on[address] [place] [address] Protein 7.2 g/dL Normal 6.4-8.3 [facility] Comment on above: Performed By: #### 2 543744 ####HEATHER [address] [place] [address] Salicylateon 11-30-2017 Salicylate Lvl <4 Low 15-30 [facility] Comment on above: Performed By: #### 2 021058 ####HEATHER ZdtQrpm8198 [place] [address] U BhCG Qlton 11-30-2017 HCG.beta subunit Qn Negative Normal Neg [facility] Comment on above: Performed By: #### 2 906512 ####HEATHER [address] [place] [address] U Drug Screenon 11-30-2017 U Amph Scr Negative Normal [facility] Comment on above: Result Comment: Resu lts for medical use only. Confirmation of positive results will be done when requested. Specimens are kept for one week. Performed By: #### 2 687918 ####HEATHER OroQjgl6221 [place] [address] U Daniella Scr Negative Normal [facility] Comment on above: Performed By: #### 2 365600 ####HEATHER DxvKkia3169 [place] [address] U Benzodia Scr Negative Normal [facility] Comment on above: Performed By: #### 2 135109 ####HEATHERMiranda ChavezQsiTbue5658 [place] [address] U Cannab Scr Negative Normal [facility] Comment on above: Performed By: #### 2 828623 ####HEATHER BulMovr6226 [place] [address] U Cocaine Scr Negative Normal [facility] Comment on above: Performed By: #### 2 496609 ####HEATHER DujIvhj8923 [place] [address] U Opiate Scr Negative Normal [facility] Comment on above: Performed By: #### 2 380911 ####HEATHER RrtNwwg1302 [place] [address] U PCP Scr Negative Normal [facility] Comment on above: Performed By: #### 2 974180 ####HEATHER XdsHrfe5430 [place] [address] UA Completeon 11-30-2017 UA Blood Negative Normal Negative [facility] Comment on above: Performed By: #### 2 293597 ####HEATHER YnwUmvk1350 [place] [address] UA Bacteria Trace Abnormal None [facility] Comment on above: Performed By: #### 2 782618 ####HEATHERMiranda ChavezWryZwzz6467 [place] [address] UA Clarity SltCloudy Abnormal Clear [facility] Comment on above: Performed By: #### 2 882769 ####HEATHERMiranda ChavezRenRtom1130 [place] [address] UA Leuk Est Negative Normal Negative [facility] Comment on above: Performed By: #### 2 957586 ####HEATHER OwvYekr0885 [place] [address] UA Mucous Trace Abnormal Trace [facility] Comment on above: Performed By: #### 2 164739 ####HEATHER FueBluc7178 [place] [address] UA Nitrite Negative Normal Negative [facility] Comment on above: Performed By: #### 2 076112 ####HEATHER EraHdvg7388 [place] [address] UA pH 6.0 Normal 4.6-8.0 [facility] Comment on above: Performed By: #### 2 721454 ####HEATHERMiranda CalderonMtkXvir1062 [place] [address] UA Protein Negative Normal Negative [facility] Comment on above: Performed By: #### 2 217924 ####HEATHER ZuwDqya2690 [place] [address] UA Spec Grav 1.021 Normal 1.003-1.03 0 [facility] Comment on above: Performed By: #### 2 443388 ####HEATHER PhnBunw5124 [place] [address] UA Squam Epithelial 5-10 Abnormal 0-5 [facility] Comment on above: Performed By: #### 2 197794 ####HEATHER PpuSgws3685 [place] [address] UA Urobilinogen Negative Normal [facility] Comment on above: Performed By: #### 2 116832 ####HEATHERMiranda CalderonKwnItzl1538 [place] [address] UA WBC 0-5 Normal 0-5 [facility] Comment on above: Performed By: #### 2 594059 ####HEATHERMiranda ChavezFlyXlsp2915 [place] [address] Urine, color Yellow Normal Yellow [facility] Comment on above: Performed By: #### 2 799181 ####HEATHERMiranda ChavezJjrEvwe0875 [place] [address] Urine, glucose Negative Normal Negative [facility] Comment on above: Performed By: #### 2 769659 ####HEATHERMiranda CalderonPavAgno7783 [place] [address] Urine, ketones presence Negative Normal Negative [facility] Comment on above: Performed By: #### 2 744345 ####HEATHER ChavezSopQomi3701 [place] [address] Urine, urobilinogen Negative Normal Negative [facility] Comment on above: Performed By: #### 2 052057 ####HEATHER ChavezCdcRemm4266 [place] [address] eGFRon 11-30-2017 eGFR (non-black) mL/min/{1.73_m2} Normal [facility] Comment on above: Order Comment: Order added by Discern Expert. Performed By: #### 2 438421 ####HEATHER ChavezAokItqc3636 [place] [address] C Urineon 11-28-2017 C Urine Final Report: Few Mi xed skin contaminants Normal [facility] Comment on above: Performed By: #### 2 153832 ####HEATHER ChavezHdqPqyh1334 [place] [address] Acetamnphn Lvlon 11-27-2017 Acetaminophen mass conc <10 Normal 0-15 [facility] Comment on above: Result Comment: Tyle nol - Therapeutic 10-30 ug/ml Toxic 4 hr. Post ingestion >150 ug/ml Toxic 8hr Post ingestion >75 ug/ml Toxic 12hr. Post ingestion >40 ug/ml Performed By: #### 2 845334 ####HEATHER HytYrwn7003 [place] [address] Auto Diffon 11-27-2017 Basophils Auto #/vol (Bld) 0.0 E3/mcL Normal 0.0-0.2 [facility] Comment on above: Order Comment: Order Added by Discern Expert. Performed By: #### 2 873087 ####HEATHER DnyFork7599 [place] [address] Basophils/100 WBC Auto (Bld) 0.3 % Normal 0.0-2.0 [facility] Comment on above: Order Comment: Order Added by Discern Expert. Performed By: #### 2 443968 ####HEATHER DgcIaye6276 [place] 0888305 Eos Absolute 0.6 E3/mcL Normal 0.0-0.7 [facility] Comment on above: Order Comment: Order Added by Discern Expert. Performed By: #### 2 828320 ####HEATHER ChavezUqlJkgj3827 [place] [address] Eosinophils/100 leukocytes 5.8 % Normal 0.0-11.0 [facility] Comment on above: Order Comment: Order Added by Discern Expert. Performed By: #### 2 469482 ####HEATHER Benítezo1025 [place] [address] Lymphocytes 2.7 E3/mcL Normal 1.2-3.4 [facility] Comment on above: Order Comment: Order Added by Discern Expert. Performed By: #### 2 859406 ####HEATHER Benítezo[address]25 [place] [address] Lymphocytes/100 leukocytes 26.1 % Normal 20.0-55.0 [facility] Comment on above: Order Comment: Order Added by Discern Expert. Performed By: #### 2 045924 ####HEATHER MqwTesm5163 [place] [address] [place] Absolute 0.9 E3/mcL High 0.0-0.7 [facility] Comment on above: Order Comment: Order Added by Discern Expert. Performed By: #### 2 903714 ####HEATHER Benítezo[address]25 [place] [address] Monocytes/100 leukocytes 9.0 % Normal 0.0-10.0 [facility] Comment on above: Order Comment: Order Added by Discern Expert. Performed By: #### 2 495589 ####HEATHER AogTvka5573 [place] [address] Neutro Absolute 6.1 E3/mcL Normal 1.4-6.5 [facility] Comment on above: Order Comment: Order Added by Discern Expert. Performed By: #### 2 789638 ####HEATHER Benítezo[address] [place] [address] Neutro Auto 58.8 % Normal 37.0-75.0 [facility] Comment on above: Order Comment: Order Added by Discern Expert. Performed By: #### 2 573144 ####HEATHER UcdUnvs3234 [place] [address] BMPon 11-27-2017 BUN/Creatinine Ratio 15.0 ratio Normal 5.4-30.0 [facility] Comment on above: Performed By: #### 2 836316 ####HEATHER Benítezo[address] [place] [address] Creatinine 0.8 mg/dL Normal 0.6-1.3 [facility] Comment on above: Performed By: #### 2 127596 ####HEATHER Benítezo[address] [place] [address] Urea nitrogen 12 mg/dL Normal 7-18 [facility] Comment on above: Performed By: #### 2 328590 ####HEATHER Benítezo[address]25 [place] [address] Calcium 8.5 mg/dL Normal 8.4-10.2 [facility] Comment on above: Performed By: #### 2 581517 ####HEATHER Benítezo[address] [place] [address] Chloride 108 mmol/L High 98-107 [facility] Comment on above: Performed By: #### 2 012324 ####HEATHER Benítezo[address]25 [place] [address] CO2 22.3 mmol/L Low 24.0-30.0 [facility] Comment on above: Performed By: #### 2 641755 ####HEATHER Benítezo[address] [place] [address] Glucose mass conc 82 mg/dL Normal 70-99 [facility] Comment on above: Performed By: #### 2 316078 ####HEATHER Benítezo[address]25 [place] [address] Potassium molar conc 3.7 mmol/L Normal 3.5-5.1 [facility] Comment on above: Performed By: #### 2 704337 ####HEATHER Benítezo[address] [place] [address] Sodium 140 mmol/L Normal 136-145 [facility] Comment on above: Performed By: #### 2 214413 ####HEATHER ChavezRzmHmle6360 [place] [address] CBC w/ Auto Diffon 8 Erythrocyte distribution width Auto Ratio (RBC) 13.3 % Normal 11.5-14.5 [facility] Comment on above: Performed By: #### 2 968867 ####HEATHER ChavezUcwHzcx7842 [place] [address] Erythrocytes (RBC) 4.88 E6/mcL Normal 3.90-5.40 [facility] Comment on above: Performed By: #### 2 555549 ####HEATHER HfsXkjz4052 [place] [address] Hematocrit (HCT) 42.2 % Normal 36.0-48.0 [facility] Comment on above: Performed By: #### 2 741807 ####HEATHER ZdpHjmz8753 [place] [address] Hemoglobin mass conc (Bld) 14.2 g/dL Normal 12.0-16.0 [facility] Comment on above: Performed By: #### 2 942880 ####HEATHERMiranda ChavezRwfAmmg0628 [place] [address] MCH 29.1 pg Normal 27.0-31.0 [facility] Comment on above: Performed By: #### 2 337483 ####HEATHER ChavezVxiOvcz5186 [place] [address] MCHC mass conc (RBC) 33.7 g/dL Normal 33.0-37.0 [facility] Comment on above: Performed By: #### 2 871330 ####HEATHER OwrIpbr6212 [place] [address] MCV 86.4 fL Normal 78.0-100.0 [facility] Comment on above: Performed By: #### 2 316411 ####HEATHER YqxLkxj0802 [place] [address] Platelet mean volume (PMV) 8.0 fL Normal 7.4-11.0 [facility] Comment on above: Performed By: #### 2 879066 ####HEATHERMiranda ChavezLguBnqn0315 [place] [address] Platelets 250 E3/mcL Normal 130-400 [facility] Comment on above: Performed By: #### 2 788953 ####HEATHERMiranda ChavezGvbLkls1790 [place] [address] WBC (Leukocytes) 10.4 E3/mcL Normal 3.6-11.0 [facility] Comment on above: Performed By: #### 2 409092 ####HEATHER Benítezo[address]25 [place] [address] Ethanolon 11-27-2017 Ethanol Lvl <5 Normal 0-15 [facility] Comment on above: Result Comment: SAMP LES WITH CONCENTRATIONS <15 MG/DL SHOULD BEINTERPRETED NEGATIVE. FOR MEDICAL USE ONLY Performed By: #### 2 895113 ####HEATHER Benítezo1025 [place] [address] Hep Func Panelon 11-27-2017 Alanine aminotransferase (ALT) 59 Int._Unit/L High 10-40 [facility] Comment on above: Performed By: #### 2 088569 ####HEATHER Benítezo1025 [place] [address] Albumin 3.5 g/dL Normal 3.2-5.0 [facility] Comment on above: Performed By: #### 2 195296 ####HEATHER Benítezo[address]25 [place] [address] Albumin/Globulin Ratio 1.2 {ratio} Normal 1.1-1.9 [facility] Comment on above: Performed By: #### 2 244203 ####HEATHER Benítezo[address]25 [place] [address] Alk Phos 80 Int._Unit/L Normal 42-121 [facility] Comment on above: Performed By: #### 2 836000 ####HEATHER Benítezo[address]25 [place] [address] Aspartate aminotransferase (AST) 44 Int._Unit/L High 10-42 [facility] Comment on above: Performed By: #### 2 374679 ####HEATHER Benítezo[address] [place] [address] Bili Direct <.10 Normal .00-.20 [facility] Comment on above: Performed By: #### 2 517655 ####HEATHER Benítezo1025 [place] [address] Bili Indirect >0.1 Normal [facility] Comment on above: Result Comment: No e stablished ranges available for the Indirect Biliruben. Performed By: #### 2 233113 ####HEATHER ChavezWeiCusj5519 [place] [address] Bili Total 0.2 mg/dL Normal 0.2-1.0 [facility] Comment on above: Performed By: #### 2 048913 ####HEATHER ChavezYxiYrjk7968 [place] [address] Globulin 2.9 g/dL Normal 2.0-4.0 [facility] Comment on above: Performed By: #### 2 841651 ####HEATHER ChavezPzgCkqg7079 [place] [address] Protein 6.4 g/dL Normal 6.4-8.3 [facility] Comment on above: Performed By: #### 2 512524 ####HEATHER ChavezFzwLmto3730 [place] [address] Salicylateon 11-27-2017 Salicylate Lvl <4 Low 15-30 [facility] Comment on above: Performed By: #### 2 127114 ####HEATHER ChavezWbzEmra8346 [place] [address] TSHon 11-27-2017 Thyroid stimulating hormone (TSH) 4.96 mIU/m Normal 0.30-5.60 [facility] Comment on above: Performed By: #### 2 793985 ####HEATHER ChavezRhzIcug7970 [place] [address] U Drug Screenon 11-27-2017 U Amph Scr Negative Normal [facility] Comment on above: Result Comment: Resu lts for medical use only. Confirmation of positive results will be done when requested. Specimens are kept for one week. Performed By: #### 2 509169 ####HEATHER ChavezArsZujs1184 [place] [address] U Daniella Scr Negative Normal [facility] Comment on above: Performed By: #### 2 970492 ####HEATHER ChavezQjjNcdz6956 [place] [address] U Benzodia Scr Negative Normal [facility] Comment on above: Performed By: #### 2 898192 ####HEATHER Benítezo[address]25 [place] [address] U Cannab Scr Negative Normal [facility] Comment on above: Performed By: #### 2 577082 ####HEATHER OryJkvn9386 [place] [address] U Cocaine Scr Negative Normal [facility] Comment on above: Performed By: #### 2 803266 ####HEATHER GwuAgha2318 [place] [address] U Opiate Scr Negative Normal [facility] Comment on above: Performed By: #### 2 367955 ####HEATHER EiqHbwc8208 [place] [address] U PCP Scr Negative Normal [facility] Comment on above: Performed By: #### 2 772360 ####HEATHER KcbOrkh6965 [place] [address] UA Completeon 11-27-2017 UA Blood Negative Normal Negative [facility] Comment on above: Performed By: #### 2 445261 ####HEATHER GipZkuk7489 [place] [address] UA Ascorbic Acid 40 mg/dL High <=19 [facility] Comment on above: Performed By: #### 2 [id number] ####HEATHER FxfUtjt8239 [place] [address] UA Bacteria Trace Abnormal None [facility] Comment on above: Performed By: #### 2 [id number] ####HEATHER OkjBzmz9043 [place] [address] UA Clarity SltCloudy Abnormal Clear [facility] Comment on above: Performed By: #### 2 374689 ####HEATHER VozKqaf8214 [place] [address] UA Leuk Est Negative Normal Negative [facility] Comment on above: Performed By: #### 2 959528 ####HEATHER XkiLepe1134 [place] [address] UA Mucous Trace Abnormal Trace [facility] Comment on above: Performed By: #### 2 249655 ####HEATHER HyvJkxu2846 [place] [address] UA Nitrite Negative Normal Negative [facility] Comment on above: Performed By: #### 2 434482 ####HEATHER Benítezo1025 [place] [address] UA pH 5.0 Normal 4.6-8.0 [facility] Comment on above: Performed By: #### 2 787310 ####HEATHER Benítezo[address]25 [place] [address] UA Protein Negative Normal Negative [facility] Comment on above: Performed By: #### 2 597761 ####HEATHER Benítezo[address]25 [place] [address] UA Spec Grav 1.023 Normal 1.003-1.03 0 [facility] Comment on above: Performed By: #### 2 215076 ####HEATHER Bení[address] [place] [address] UA Squam Epithelial 10-20 Abnormal 0-5 [facility] Comment on above: Performed By: #### 2 004250 ####HEATHER Bení[address] [place] [address] UA Urobilinogen Negative Normal [facility] Comment on above: Performed By: #### 2 566679 ####HEATHER Ben[address] [place] [address] UA WBC 0-5 Normal 0-5 [facility] Comment on above: Performed By: #### 2 047481 ####HEATHER Ben[address] [place] [address] Urine, color Yellow Normal Yellow [facility] Comment on above: Performed By: #### 2 913858 ####HEATHER Ben[address]25 [place] [address] Urine, erythrocytes 0-3 Normal 0-3 [facility] Comment on above: Performed By: #### 2 661539 ####HEATHER [address] [place] [address] Urine, glucose Negative Normal Negative [facility] Comment on above: Performed By: #### 2 589452 ####HEATHER Ben[address] [place] [address] Urine, ketones presence Negative Normal Negative [facility] Comment on above: Performed By: #### 2 158514 ####HEATHER ChavezDkbCymg7471 [place] [address] Urine, urobilinogen Negative Normal Negative [facility] Comment on above: Performed By: #### 2 231204 ####HEATHER Ben[address]zo[address]25 [place] [address] eGFRon 11-27-2017 eGFR (non-black) mL/min/{1.73_m2} Normal [facility] Comment on above: Order Comment: Order Added by Discern Expert. Performed By: #### 2 794042 ####HEATHER Ben[address] [place] [address] Culture, Urineon 11-25-2017 Culture, Urine OR DERED BY: WILIAM CORREA: Urine Voided COLLECTED: 11/25/17 06:02ANTIBIOTICS AT REYNA.: RECEIVED : 11/25/17 06:10Culture, Urine FINAL 11/26/17 08:19 <50,000 CFU/ml of mixed yayo Multiple organisms isolated, including Group B Beta Streptococci, No predominance. Culture indicates probable contamination. Please review colony count and clinical indications to determine if a repeat culture is necessary. No further workup to be done. Normal [facility] Urinalysis, reflex to micros copicon 11-25-2017 Bilirubin Ql (U) Negative Normal Negative [facility] Urine, clarity TURBID Abnormal Clear [facility] Urine, color Yellow Normal Straw/[place] [facility] Urine, glucose presence Negative Normal Negative [facility] Urine, hemoglobin presence Negative Normal Negative [facility] Urine, ketones presence Negative Normal Negative [facility] Urine, leukocyte esterase presence LARGE Abnormal Negative [facility] Urine, nitrite presence Negative Normal Negative [facility] Urine, pH 6.0 [pH] Normal 5.0-9.0 [facility] Urine, protein presence Negative Normal Negative [facility] Urine, specific gravity 1.030 Normal 1.005-1.03 [facility] Urine, urobilinogen 0.2 {Gretel'U}/dL Normal < 2.0 [facility] Urine Microscopicon 11-25-19 18 Urine Amorphous 4+ Normal [facility] Urine, bacteria in sediment Few Normal [facility] Urine, crystals in sediment 1+ Ca. Oxalate Normal [facility] Urine, epithelial cells presence in sediment 5-10 Normal [facility] Urine, erythrocytes 0-2 Normal 0-2 [facility] Urine, leukocytes 10-20 Abnormal 0-5 [facility] Serum HCG Qualitativeon - HCG.beta subunit Qn Negative Normal [facility] Acetamnphn Lvlon 11-22-2017 Acetaminophen mass conc <10 Normal 0-15 [facility] Comment on above: Result Comment: Tyle nol - Therapeutic 10-30 ug/ml Toxic 4 hr. Post ingestion >150 ug/ml Toxic 8hr Post ingestion >75 ug/ml Toxic 12hr. Post ingestion >40 ug/ml Performed By: #### 2 478854 ####HEATHER ChavezYghDymw0210 [place] [address] Auto Diffon 11-22-2017 Basophils Auto #/vol (Bld) 0.0 E3/mcL Normal 0.0-0.2 [facility] Comment on above: Order Comment: Order Added by Discern Expert. Performed By: #### 2 903074 ####HEATHER ChavezUjoEwdd3968 [place] [address] Basophils/100 WBC Auto (Bld) 0.4 % Normal 0.0-2.0 [facility] Comment on above: Order Comment: Order Added by Discern Expert. Performed By: #### 2 532437 ####HEATHER JcrDanu5763 [place] [address] Eos Absolute 0.3 E3/mcL Normal 0.0-0.7 [facility] Comment on above: Order Comment: Order Added by Discern Expert. Performed By: #### 2 372486 ####HEATHER EmaXiyu4505 [place] [address] Eosinophils/100 leukocytes 3.8 % Normal 0.0-11.0 [facility] Comment on above: Order Comment: Order Added by Discern Expert. Performed By: #### 2 148984 ####HEATHER EpgZjjo4810 [place] [address] Lymphocytes 2.5 E3/mcL Normal 1.2-3.4 [facility] Comment on above: Order Comment: Order Added by Discern Expert. Performed By: #### 2 655807 ####HEATHER Ben[address]zo[address] [place] [address] Lymphocytes/100 leukocytes 36.9 % Normal 20.0-55.0 [facility] Comment on above: Order Comment: Order Added by Discern Expert. Performed By: #### 2 154805 ####HEATHER Ben[address]zo[address]25 [place] [address] [place] Absolute 0.5 E3/mcL Normal 0.0-0.7 [facility] Comment on above: Order Comment: Order Added by Discern Expert. Performed By: #### 2 821112 ####HEATHER Ben[address]zo[address]25 [place] [address] Monocytes/100 leukocytes 7.1 % Normal 0.0-10.0 [facility] Comment on above: Order Comment: Order Added by Discern Expert. Performed By: #### 2 612963 ####HEATHER [address] [place] [address] Neutro Absolute 3.5 E3/mcL Normal 1.4-6.5 [facility] Comment on above: Order Comment: Order Added by Discern Expert. Performed By: #### 2 513397 ####HEATHER [address] [place] [address] Neutro Auto 51.8 % Normal 37.0-75.0 [facility] Comment on above: Order Comment: Order Added by Discern Expert. Performed By: #### 2 704380 ####HEATHER [address]25 [place] [address] BMPon 11-22-2017 BUN/Creatinine Ratio 12.2 ratio Normal 5.4-30.0 [facility] Comment on above: Performed By: #### 2 291715 ####HEATHER Ch[address]SaeUrze0059 [place] [address] Creatinine 0.9 mg/dL Normal 0.6-1.3 [facility] Comment on above: Performed By: #### 2 935277 ####HEATHERMiranda ChavezAprWjop7613 [place] [address] Urea nitrogen 11 mg/dL Normal 7-18 [facility] Comment on above: Performed By: #### 2 442711 ####HEATHER XtnMyad4189 [place] [address] Calcium 9.0 mg/dL Normal 8.4-10.2 [facility] Comment on above: Performed By: #### 2 693187 ####HEATHER NyiZpkk6169 [place] [address] Chloride 99 mmol/L Normal 98-107 [facility] Comment on above: Performed By: #### 2 253531 ####HEATHER PfoBfon9033 [place] [address] CO2 27.2 mmol/L Normal 24.0-30.0 [facility] Comment on above: Performed By: #### 2 978210 ####HEATHER CmlSkpv5160 [place] [address] Glucose mass conc 137 mg/dL High 70-99 [facility] Comment on above: Performed By: #### 2 386972 ####HEATHER QqvMmzv1360 [place] [address] Potassium molar conc 3.2 mmol/L Low 3.5-5.1 [facility] Comment on above: Performed By: #### 2 443087 ####HEATHER PdhInzm9049 [place] [address] Sodium 139 mmol/L Normal 136-145 [facility] Comment on above: Performed By: #### 2 427431 ####HEATHER JojMtnv7191 [place] [address] CBC w/ Auto Diffon 8 Erythrocyte distribution width Auto Ratio (RBC) 13.4 % Normal 11.5-14.5 [facility] Comment on above: Performed By: #### 2 328367 ####HEATHER HnvWnmd5795 [place] [address] Erythrocytes (RBC) 5.08 E6/mcL Normal 3.90-5.40 [facility] Comment on above: Performed By: #### 2 475787 ####HEATHER ChavezMhdJhtk6222 [place] [address] Hematocrit (HCT) 44.0 % Normal 36.0-48.0 [facility] Comment on above: Performed By: #### 2 680025 ####HEATHER ChavezFqhYnkp9509 [place] [address] Hemoglobin mass conc (Bld) 15.1 g/dL Normal 12.0-16.0 [facility] Comment on above: Performed By: #### 2 330433 ####HEATHER ChavezHraZsyp2082 [place] [address] MCH 29.7 pg Normal 27.0-31.0 [facility] Comment on above: Performed By: #### 2 897952 ####HEATHER ChavezJakSqny0011 [place] [address] MCHC mass conc (RBC) 34.3 g/dL Normal 33.0-37.0 [facility] Comment on above: Performed By: #### 2 612175 ####HEATHER Benítezo[address]25 [place] [address] MCV 86.5 fL Normal 78.0-100.0 [facility] Comment on above: Performed By: #### 2 602181 ####HEATHER ChavezJupCjjn6820 [place] [address] Platelet mean volume (PMV) 8.1 fL Normal 7.4-11.0 [facility] Comment on above: Performed By: #### 2 647789 ####HEATHER ChavezClsCpah5015 [place] [address] Platelets 216 E3/mcL Normal 130-400 [facility] Comment on above: Performed By: #### 2 879400 ####HEATHER ChavezAwnIczc3185 [place] [address] WBC (Leukocytes) 6.7 E3/mcL Normal 3.6-11.0 [facility] Comment on above: Performed By: #### 2 717357 ####HEATHER ChavezBfiParl6176 [place] [address] Ethanolon 11-22-2017 Ethanol Lvl <5 Normal 0-15 [facility] Comment on above: Result Comment: SAMP LES WITH CONCENTRATIONS <15 MG/DL SHOULD BEINTERPRETED NEGATIVE. FOR MEDICAL USE ONLY Performed By: #### 2 618147 ####HEATHER IvoUaaa6169 [place] [address] Hep Func Panelon 11-22-2017 Alanine aminotransferase (ALT) 33 Int._Unit/L Normal 10-40 [facility] Comment on above: Performed By: #### 2 911602 ####HEATHER Calderon1025 [place] [address] Albumin 3.8 g/dL Normal 3.2-5.0 [facility] Comment on above: Performed By: #### 2 493830 ####HEATHER WakXewd9414 [place] [address] Albumin/Globulin Ratio 1.3 {ratio} Normal 1.1-1.9 [facility] Comment on above: Performed By: #### 2 579257 ####HEATHER WajRske8634 [place] [address] Alk Phos 81 Int._Unit/L Normal 42-121 [facility] Comment on above: Performed By: #### 2 671584 ####HEATHER Calderon1025 [place] [address] Aspartate aminotransferase (AST) 28 Int._Unit/L Normal 10-42 [facility] Comment on above: Performed By: #### 2 642640 ####HEATHER MojSdwb2197 [place] [address] Bili Direct <.10 Normal .00-.20 [facility] Comment on above: Performed By: #### 2 897377 ####HEATHER CoxCadp8145 [place] [address] Bili Indirect >0.4 Normal [facility] Comment on above: Result Comment: No e stablished ranges available for the Indirect Biliruben. Performed By: #### 2 816682 ####HEATHER TftAabp3658 [place] [address] Bili Total 0.5 mg/dL Normal 0.2-1.0 [facility] Comment on above: Performed By: #### 2 546112 ####HEATHERMiranda CalderonPwjNsjq6670 [place] [address] Globulin 3.0 g/dL Normal 2.0-4.0 [facility] Comment on above: Performed By: #### 2 195913 ####HEATHER ChavezTorPlxg2547 [place] [address] Protein 6.8 g/dL Normal 6.4-8.3 [facility] Comment on above: Performed By: #### 2 152794 ####HEATHER Calderon[address]25 [place] [address] Salicylateon 11-22-2017 Salicylate Lvl <4 Low 15-30 [facility] Comment on above: Performed By: #### 2 894217 ####HEATHER Calderon1025 [place] [address] TSHon 11-22-2017 Thyroid stimulating hormone (TSH) 1.80 mIU/m Normal 0.30-5.60 [facility] Comment on above: Performed By: #### 2 461103 ####HEATHER ChavezTyhLjve6295 [place] [address] U Drug Screenon 11-22-2017 U Amph Scr Negative Normal [facility] Comment on above: Result Comment: Resu lts for medical use only. Confirmation of positive results will be done when requested. Specimens are kept for one week. Performed By: #### 2 469228 ####HEATHER SqgOdfk7311 [place] [address] U Daniella Scr Negative Normal [facility] Comment on above: Performed By: #### 2 302665 ####HEATHER PkuMylr8027 [place] [address] U Benzodia Scr Negative Normal [facility] Comment on above: Performed By: #### 2 162949 ####HEATHER FtuHojl8899 [place] [address] U Cannab Scr Negative Normal [facility] Comment on above: Performed By: #### 2 512976 ####HEATHER CurIzga6990 [place] [address] U Cocaine Scr Negative Normal [facility] Comment on above: Performed By: #### 2 203174 ####HEATHER ChavezRljXgrx7256 [place] [address] U Opiate Scr Negative Normal [facility] Comment on above: Performed By: #### 2 445030 ####HEATHER ZohLytp4901 [place] [address] U PCP Scr Negative Normal [facility] Comment on above: Performed By: #### 2 716250 ####HEATHER MziSccx6366 [place] [address] UA Completeon 11-22-2017 UA Blood Negative Normal Negative [facility] Comment on above: Performed By: #### 8 9453585 ####HEATHER Urinalysis Automated Njeqjrauts1401 [place] [address] UA Bacteria Trace Abnormal None [facility] Comment on above: Performed By: #### 8 [id number] ####HEATHER Urinalysis Automated Ssthghxnnm5228 [place] [address] UA Clarity SltCloudy Abnormal Clear [facility] Comment on above: Performed By: #### 8 [id number] ####HEATHER Urinalysis Automated [address] [place] [address] UA Leuk Est 1+ Abnormal Negative [facility] Comment on above: Performed By: #### 8 [id number] ####HEATHER Urinalysis Automated Gkiwhyigxd3789 [place] [address] UA Mucous Trace Abnormal Trace [facility] Comment on above: Performed By: #### 8 [id number] ####HEATHER Urinalysis Automated Calnxzhbjw9936 [place] [address] UA Nitrite Negative Normal Negative [facility] Comment on above: Performed By: #### 8 [id number] ####HEATHER Urinalysis Automated Hjfijclqyq3345 [place] [address] UA pH 6.0 Normal 4.6-8.0 [facility] Comment on above: Performed By: #### 8 7644355 ####HEATHER Urinalysis Automated Iunjcuefhb4005 [place] [address] UA Protein Negative Normal Negative [facility] Comment on above: Performed By: #### 8 9479738 ####HEATHER Urinalysis Automated Slosfupgao9786 [place] [address] UA Spec Grav 1.019 Normal 1.003-1.03 0 [facility] Comment on above: Performed By: #### 8 [id number] ####HEATHER Urinalysis Automated Lvruxgzwko[address] [place] [address] UA Squam Epithelial 5-10 Abnormal 0-5 [facility] Comment on above: Performed By: #### 8 [id number] ####HEATHER Urinalysis Automated Wksftsjgje1322 [place] [address] UA Urobilinogen Negative Normal [facility] Comment on above: Performed By: #### 8 5894280 ####HEATHER Urinalysis Automated Sndezyywsh6391 [place] [address] UA WBC 5-10 Abnormal 0-5 [facility] Comment on above: Performed By: #### 8 7834743 ####HEATHER Urinalysis Automated Wvmkihmbdw4219 [place] [address] Urine, color Yellow Normal Yellow [facility] Comment on above: Performed By: #### 8 [id number] ####HEATHER Urinalysis Automated Vfuhogjpmi6326 [place] [address] Urine, erythrocytes 0-3 Normal 0-3 [facility] Comment on above: Performed By: #### 8 8695311 ####HEATHER Urinalysis Automated Ydjeyrytpv8777 [place] [address] Urine, glucose Negative Normal Negative [facility] Comment on above: Performed By: #### 8 [id number] ####HEATHER Urinalysis Automated Nxnuffjqvk3588 [place] [address] Urine, ketones presence Trace Normal [facility] Comment on above: Performed By: #### 8 4167571 ####HEATHER Urinalysis Automated Qddzpecazh3204 [place] [address] Urine, urobilinogen Negative Normal Negative [facility] Comment on above: Performed By: #### 8 [id number] ####HEATHER Urinalysis Automated Sxwujvjwys4782 [place] [address] eGFRon 11-22-2017 eGFR (non-black) mL/min/{1.73_m2} Normal [facility] Comment on above: Order Comment: Order added by Discern Expert. Performed By: #### 1 [id number] ####HEATHER VblUcsf8592 [place] [id number] Coding Summary.on 10-31-2017 Coding Summary. CODING DATE: 018 FINAL [facility] STATUS: Home (Routine DC) PAYOR: Medicaid EAPG DESCRIPTION 0118 NUTRITION THERAPY ADMIT DX: REASON FOR VISIT DX: E78.6 Lipoprotein deficiency FINAL DX: PRINCIPAL: E78.6 Lipoprotein deficiency SECONDARY: E66.01 Morbid (severe) obesity due to excess calories PYMT PROC EAPG STAT DESCRIPTION DOCTOR NAME DATE NOTE: The code number assigned matches the documented diagnosis and / or procedure in the patient's chart. However, the narrative phrase printed from the coding software may appear abbreviated, or result in slightly different terminology. Coded By: Cydney Olvera Date Saved: 10/31/2017 12:23 pm Normal [facility] Coding Summary.on 10-18-2017 Coding Summary. CODING DATE: FINAL [facility] STATUS: [facility] PAYOR: Medicaid EAPG DESCRIPTION 0999 UNASSIGNED ADMIT DX: REASON FOR VISIT DX: R44.0 Auditory hallucinations FINAL DX: PRINCIPAL: F25.9 Schizoaffective disorder, unspecified SECONDARY: F31.9 Bipolar disorder, unspecified E11.9 Type 2 diabetes mellitus without complications F17.210 Nicotine dependence, cigarettes, uncomplicated Z79.899 Other usp (current) drug therapy PYMT PROC EAPG STAT DESCRIPTION DOCTOR NAME DATE NOTE: The code number assigned matches the documented diagnosis and / or procedure in the patient's chart. However, the narrative phrase printed from the coding software may appear abbreviated, or result in slightly different terminology. Revised Coded By: Araceli Resendez Revised Date Saved: 10/18/2017 03:59 pm Normal [facility] ED Clinical Summaryon 2017 ED Clinical Summary (Inserted Image. Silvia ble to display) [place] [address] ED Clinical SummaryPerson Information Name: CRIS MAGANA/Harlan_Maverick Age: 17 Years : 2000 12:00 AM Sex: Female Language:Italian PCP: Barbara Mcknight MD Marital Status:Single Visit Id: Visit Reason:Psychiatric screening exam; Mental health disorder; Homicidal ideation; MENTAL EVAL Speciality: Acuity: 2 Enc Type: Emergency Med Service: Emergency Arrival:10/16/2017 7:25 PM Discharge: 10/17/2017 7:35 AM LOS: 000 12:10 Checkin:10/16/2017 7:25 PM Checkout: 10/17/2017 7:35 AM [facility] EVENTS:Event Name Event Status Request Date/Time Start Date/Time Complete Date/Time Arrive Complete 10/16/2017 7:25 PM 10/16/2017 7:25 PM 10/16/2017 7:25 PM Document Home Meds Request 10/16/2017 7:25 PM Triage Complete 10/16/2017 7:25 PM 10/16/2017 7:40 PM 10/16/2017 7:40 PM Bed Assign Complete 10/16/2017 7:53 PM 10/16/2017 7:53 PM 10/16/2017 7:[address] Exam Complete 10/16/2017 7:53 PM 10/16/2017 7:55 PM 10/16/2017 7:55 PM RN Exam Complete 10/16/2017 7:53 PM 10/16/2017 7:59 PM 10/16/2017 7:59 PM Registration Complete 10/16/2017 7:55 PM 10/16/2017 8:00 PM 10/16/2017 8:00 PM Reg Complete Request 10/16/2017 8:00 PM Reg Bed Request Complete 10/16/2017 8:00 PM 10/16/2017 8:00 PM 10/16/2017 8:00 PM Consult Request 10/16/2017 8:05 PM Pending Labs Complete 10/16/2017 8:05 PM 10/16/2017 9:53 PM Lab Complete 10/16/2017 8:05 PM 10/16/2017 9:53 PM Urine Collect Complete 10/16/2017 8:05 PM 10/16/2017 8:49 PM Patient Care Request 10/16/2017 8:[address] Exam Complete 10/16/2017 8:41 PM 10/16/2017 8:41 PM 10/16/2017 8:41 PM Registration Request 10/16/2017 8:41 PM Pending Labs Complete 10/16/2017 9:21 PM 10/16/2017 9:21 PM 10/16/2017 9:33 PM Lab Complete 10/16/2017 9:21 PM 10/16/2017 9:21 PM 10/16/2017 9:33 PM Pending Labs Complete 10/16/2017 9:27 PM 10/16/2017 9:27 PM 10/16/2017 9:27 PM Lab Complete 10/16/2017 9:27 PM 10/16/2017 9:27 PM 10/16/2017 9:27 PM Pending Labs Complete 10/16/2017 9:56 PM 10/16/2017 9:56 PM 10/16/2017 9:56 PM Patient Care Request 10/17/2017 1:38 AM Transfer Complete 10/17/2017 1:38 AM 10/17/2017 7:46 AM 10/17/2017 7:46 AM Discharge Complete 10/17/2017 7:46 AM 10/17/2017 7:46 AM 10/17/2017 7:46 AM ADDRESS:[address] [place] [id number] [facility] DOC NOTES: Patient: CRIS MAGANA Age: 17 years Sex: Female : 2000 Associated Diagnoses: None Author: Viky Vasquez PA-C Basic Information Time seen: Date & time 10/16/17 19:45:00. History source: Patient, manager statistical, family. Arrival mode: Private vehicle. 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 Pt voices that she would harm everyone with a knife. Pt denies any suicidal ideation. [facility] health contacted . History of Present Illness The patient presents with psychiatric problem. The course/duration of symptoms is constant. Character of symptoms agitated. The degree of symptoms is moderate. Self injury: none. The exacerbating factor is none. The relieving factor is none. Risk factors consist of homicide risk and multiple medications. Prior episodes: none. this is a 17-year-old female that was brought to emergency department by her grandmother who is her guardian and manager statistical. Patient resides at a long-term history of bipolar schizophrenia. Caretakers report increased agitation since August 2017. Damián notes that there was a medication change at that time patient was behaving differently, symptoms were discussed with Dr. Marroquin psychiatrist they never told to wait for medication to take effect. Patient has had worsening behavior hitting threatening throwing she was released from residential today. Patient states she has auditory visual hallucinations versus telling her to hurt others. She is seen clowns and shapes not sleeping good. Denies suicidal ideation denies substance abuse she admits toescaping from long-term at night routinely however she supposed to be a 24 hour monitored residentmedical history of schizophrenia, bipolar, morbid obesity Review of Systems Constitutional symptoms: Negative except as documented in HPI. Skin symptoms: Negative except as documented in HPI. Eye symptoms: Negative except as documented in HPI. ENMT symptoms: Negative except as documented in HPI. Respiratory symptoms: Negative except as documented in HPI. Cardiovascular symptoms: Negative except as documented in HPI. Gastrointestinal symptoms: Negative except as documented in HPI. Genitourinary symptoms: Negative except as documented in HPI. Musculoskeletal symptoms: Negative except as documented in HPI. Neurologic symptoms: Negative except as documented in HPI. Psychiatric symptoms: Depression, sleeping problems, agitation, auditory or visual hallucinations. Health Status Allergies: Allergic Reactions (Selected)Severity Not DocumentedBee Stings- Sob.. Medications: (Selected) Documented MedicationsDocumentedoxcarbaz epine 300 mg Tab: 600 mg = 2 tab(s), Oral, BID, # 120 tab(s), Refills(s) 0paliperidone 3 mg oral tablet, extended release: 3 mg = 1 tab(s), Oral, qAM, # 30 tab(s), Refills(s) 0traZODONE 150 mg Tab: 150 mg = 1 tab(s), Oral, Once a day (at bedtime), # 30 tab(s), Refills(s) 0. Past Medical/ Family/ Social History Medical history: ResolvedDiabetes ([id number]): Resolved.Suicidal plans ([id number]): Resolved.Homicidal thoughts ([id number]): Resolved.. Surgical history: None ([id number]).. Family history: No family history items have been selected or recorded.. Social history: Social & Psychosocial HabitsAlcohol Comment: sajiies. - 06/10/2017 18:11 - Kathy Vasquez RN N001/20/2017 Risk Assessment: Denies Alcohol Use07/02/2017 Frequency: DailySubstance Abuse Comment: denies. - 06/10/2017 18:11 - Kathy Vasquez RN N001/20/2017 Risk Assessment: Denies Substance AbuseTobacco Comment: smokes 2 ppd. - 06/10/2017 18:11 - Kathy Vasquez RN N001/20/2017 Risk Assessment: Denies Tobacco Use07/24/2017 Use: Current Every Day Smoker Type: Cigarettes Comment: Smoke 2 cigarettes a day - 07/24/2017 14:38 - Franny Valverde RN. Problem list: Active Problems (1)Smoker . Physical Examination Vital Signs Vital Signs 10/16/2017 19:35 EST Temperature Oral 36.8 DegC Peripheral Pulse Rate 106 bpm HI Respiratory Rate 20 br/min Systolic Blood Pressure 139 mmHg Diastolic Blood Pressure 89 mmHg SpO2 97 % . Patient is not hypoxic.. General: Alert, mild distress. Skin: Warm. Head: Normocephalic. Neck: Supple, trachea midline, no tenderness. Eye: Extraocular movements are intact, normal conjunctiva. Ears, nose, mouth and throat: Oral mucosa moist, no pharyngeal erythema or exudate. Cardiovascular: Regular rate and rhythm, No murmur, Normal peripheral perfusion. Respiratory: Lungs are clear to auscultation, respirations are non-labored, breath sounds are equal, Symmetrical chest wall expansion. Gastrointestinal: Soft, Nontender, Non distended, Normal bowel sounds, No organomegaly. Back: Nontender, Normal range of motion. Musculoskeletal: Normal ROM, normal strength, no tenderness. Neurological: Alert and oriented to person, place, time, and situation, No focal neurological deficit observed, CN II-XII intact, normal sensory observed. Psychiatric: Mood and affect: Anxious, flat, Abnormal / Psychotic thoughts: Hallucinations (auditory, visual). Medical Decision Making Documents reviewed: Emergency department nurses' notes. Orders Launch Order Profile (Selected) Inpatient OrdersOrderedConsult to Mental Health: 10/16/17 20:04:00 EST, schizophrenia exacerbation, Consult and Co-managePatient in a gown.: 10/16/17 20:04:00 EST, Patient in a gown.Transfer Patient: 10/17/17 0:30:00 EST, Stop date 10/17/17 0:30:00 ESTCompletedAcetaminophen Level: Blood, Stat collect, 10/16/17 20:04:00 EST, Once, Stop date 10/16/17 20:05:00 EST, Lab CollectAlcohol Level: Blood, Stat collect, 10/16/17 20:04:00 EST, Once, Stop date 10/16/17 20:05:00 EST, Lab CollectAutomated Diff: Blood, Stat collect, Collected, 10/16/17 21:09:00 EST, Once, Stop date 10/16/17 21:09:00 EST, Lab CollectCBC w/ Auto Diff: Blood, Stat collect, 10/16/17 20:04:00 EST, Once, Stop date 10/16/17 20:05:00 EST, Lab CollectCMP: Blood, Stat collect, 10/16/17 20:04:00 EST, Once, Stop date 10/16/17 20:05:00 EST, Lab CollectCarbamazepine Level: Blood, Stat collect, 10/16/17 20:04:00 EST, Stop date 10/16/17 20:05:00 EST, Lab CollectDrug Screen Urine: Urine, Stat collect, 10/16/17 20:04:00 EST, Once, Stop date 10/16/17 20:05:00 EST, Nurse collectExtra SST Tube: Blood, Stat collect, Collected, 10/16/17 21:09:00 EST by [email or web address], Once, Stop date 10/16/17 21:09:00 EST, Lab Collect, Venous Draw, YesSalicylate Level: Blood, Stat collect, 10/16/17 20:04:00 EST, Once, Stop date 10/16/17 20:05:00 EST, Lab CollectU Beta Hcg Qual: Urine, Stat collect, 10/16/17 20:04:00 EST, Once, Stop date 10/16/17 20:05:00 EST, Nurse collecteGFR: Blood, Stat collect, Collected, 10/16/17 21:09:00 EST, Once, Stop date 10/16/17 21:09:00 EST, Lab Collect. Results review: Lab results : Lab View 10/16/2017 21:09 EST WBC 8.9 E9/L RBC 5.0 E12/L Hgb 14.6 gm/dL Hct 42.6 % MCV 84.5 fL MCH 29.0 pg MCHC 34.3 gm/dL RDW 13.3 % Platelet 263.0 E9/L MPV 7.9 fL Neutro Auto 51.3 % Lymph Auto 39.5 % [place] Auto 7.9 % Eos Auto 1.1 % Basophil Auto 0.2 % Neutro Absolute 4.6 E9/L Lymph Absolute 3.5 E9/L [place] Absolute 0.7 E9/L Eos Absolute 0.1 E9/L Basophil Absolute 0.0 E9/L Glucose Lvl 125 mg/dL BUN 12 mg/dL Creatinine 0.8 mg/dL eGFR >60 mL/min/1.73 m2 eGFR AA >60 mL/min/1.73 m2 BUN/Creat Ratio 15 Sodium Lvl 138 mmol/L Potassium Lvl 3.9 mmol/L Chloride 107 mmol/L CO2 25 mmol/L AGAP 10 mEq/L Calcium Lvl 9.0 mg/dL Alk Phos 91 Int._Unit/L ALT 47 Int._Unit/L HI AST 25 Int._Unit/L Total Protein 7.3 gm/dL Albumin Lvl 4.0 gm/dL Globulin 3.3 gm/dL A/G Ratio 1.2 Bili Total 0.4 mg/dL Acetaminoph Lvl <10 microgram/mL LOW Carbamaz Lvl <2.0 microgram/mL LOW Salicylate Lvl <4 mg/dL LOW Ethanol Lvl <5 mg/dL 10/16/2017 20:11 EST U Amph Scr Negative U Daniella Scr Negative U Benzodia Scr Negative U Cannab Scr Negative U Cocaine Scr Negative U Opiate Scr Negative U PCP Scr Negative U beta hCG Ql Negative . Notes: the patient is seen by the PA initially. She presented for mental health evaluation. The patient has reported hallucinations. The voices were telling her to hurt others. She has been threatening the staff at the long-term. She calmed in the emergency room. The bloodwork is unremarkable negative drug screen. The patient is seen by the P and [facility]., Critical Care time 40 minutes.. Impression and Plan Diagnosis Schizoaffective disorder (QOM96-AS F25.9, Discharge, Medical) Bipolar disorder (GOT47-CA F31.9, Discharge, Medical) Plan Condition: Stable. Disposition: Transfer to other location: Time: 10/17/17 00:30:00, Facility name: [facility]. Counseled: Patient, Family, Regarding diagnosis, Regarding diagnostic results, Regarding treatment plan. MEDICAL INFORMATION: Prescriptions Given:PATIENT EDUCATION INFORMATION: Instructions: Follow up:DIAGNOSIS:Bipolar disorder; Schizoaffective disorder Normal [facility] ED Note-Physicianon 10-17-19 ED Note-Physician Patient: PEPE MAGANA Age: 17 years Sex: Female : 2000 Associated Diagnoses: None Author: Viky Vasquez PA-C Basic Information Time seen: Date & time 10/16/17 19:45:00. History source: Patient, manager statistical, family. Arrival mode: Private vehicle. 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 Pt voices that she would harm everyone with a knife. Pt denies any suicidal ideation. [facility] contacted . History of Present Illness The patient presents with psychiatric problem. The course/duration of symptoms is constant. Character of symptoms agitated. The degree of symptoms is moderate. Self injury: none. The exacerbating factor is none. The relieving factor is none. Risk factors consist of homicide risk and multiple medications. Prior episodes: none. this is a 17-year-old female that was brought to emergency department by her grandmother who is her guardian and manager statistical. Patient resides at a long-term history of bipolar schizophrenia. Caretakers report increased agitation since August 2017. Damián notes that there was a medication change at that time patient was behaving differently, symptoms were discussed with Dr. Marroquin psychiatrist they never told to wait for medication to take effect. Patient has had worsening behavior hitting threatening throwing she was released from residential today. Patient states she has auditory visual hallucinations versus telling her to hurt others. She is seen clowns and shapes not sleeping good. Denies suicidal ideation denies substance abuse she admits toescaping from long-term at night routinely however she supposed to be a 24 hour monitored residentmedical history of schizophrenia, bipolar, morbid obesity Review of Systems Constitutional symptoms: Negative except as documented in HPI. Skin symptoms: Negative except as documented in HPI. Eye symptoms: Negative except as documented in HPI. ENMT symptoms: Negative except as documented in HPI. Respiratory symptoms: Negative except as documented in HPI. Cardiovascular symptoms: Negative except as documented in HPI. Gastrointestinal symptoms: Negative except as documented in HPI. Genitourinary symptoms: Negative except as documented in HPI. Musculoskeletal symptoms: Negative except as documented in HPI. Neurologic symptoms: Negative except as documented in HPI. Psychiatric symptoms: Depression, sleeping problems, agitation, auditory or visual hallucinations. Health Status Allergies: Allergic Reactions (Selected)Severity Not DocumentedBee Stings- Sob.. Medications: (Selected) Documented MedicationsDocumentedoxcarbaz epine 300 mg Tab: 600 mg = 2 tab(s), Oral, BID, # 120 tab(s), Refills(s) 0paliperidone 3 mg oral tablet, extended release: 3 mg = 1 tab(s), Oral, qAM, # 30 tab(s), Refills(s) 0traZODONE 150 mg Tab: 150 mg = 1 tab(s), Oral, Once a day (at bedtime), # 30 tab(s), Refills(s) 0. Past Medical/ Family/ Social History Medical history: ResolvedDiabetes ([id number]): Resolved.Suicidal plans ([id number]): Resolved.Homicidal thoughts (706589713): Resolved.. Surgical history: None ([id number]).. Family history: No family history items have been selected or recorded.. Social history: Social & Psychosocial HabitsAlcohol Comment: rich. - 06/10/2017 18:11 - Kathy Vasquez RN01/20/2017 Risk Assessment: Denies Alcohol Use07/02/2017 Frequency: DailySubstance Abuse Comment: rich. - 06/10/2017 18:11 Kathy Perez RN01/20/2017 Risk Assessment: Denies Substance AbuseTobacco Comment: smokes 2 ppd. - 06/10/2017 18:Kathy Zhou RN N001/20/2017 Risk Assessment: Denies Tobacco Use07/24/2017 Use: Current Every Day Smoker Type: Cigarettes Comment: Smoke 2 cigarettes a day - 07/24/2017 14:38 - Nicolle YA, Franny. Problem list: Active Problems (1)Smoker . Physical Examination Vital Signs Vital Signs 10/16/2017 19:35 EST Temperature Oral 36.8 DegC Peripheral Pulse Rate 106 bpm HI Respiratory Rate 20 br/min Systolic Blood Pressure 139 mmHg Diastolic Blood Pressure 89 mmHg SpO2 97 % . Patient is not hypoxic.. General: Alert, mild distress. Skin: Warm. Head: Normocephalic. Neck: Supple, trachea midline, no tenderness. Eye: Extraocular movements are intact, normal conjunctiva. Ears, nose, mouth and throat: Oral mucosa moist, no pharyngeal erythema or exudate. Cardiovascular: Regular rate and rhythm, No murmur, Normal peripheral perfusion. Respiratory: Lungs are clear to auscultation, respirations are non-labored, breath sounds are equal, Symmetrical chest wall expansion. Gastrointestinal: Soft, Nontender, Non distended, Normal bowel sounds, No organomegaly. Back: Nontender, Normal range of motion. Musculoskeletal: Normal ROM, normal strength, no tenderness. Neurological: Alert and oriented to person, place, time, and situation, No focal neurological deficit observed, CN II-XII intact, normal sensory observed. Psychiatric: Mood and affect: Anxious, flat, Abnormal / Psychotic thoughts: Hallucinations (auditory, visual). Medical Decision Making Documents reviewed: Emergency department nurses' notes. Orders Launch Order Profile (Selected) Inpatient OrdersOrderedConsult to Mental Health: 10/16/17 20:04:00 EST, schizophrenia exacerbation, Consult and Co-managePatient in a gown.: 10/16/17 20:04:00 EST, Patient in a gown.Transfer Patient: 10/17/17 0:30:00 EST, Stop date 10/17/17 0:30:00 ESTCompletedAcetaminophen Level: Blood, Stat collect, 10/16/17 20:04:00 EST, Once, Stop date 10/16/17 20:05:00 EST, Lab CollectAlcohol Level: Blood, Stat collect, 10/16/17 20:04:00 EST, Once, Stop date 10/16/17 20:05:00 EST, Lab CollectAutomated Diff: Blood, Stat collect, Collected, 10/16/17 21:09:00 EST, Once, Stop date 10/16/17 21:09:00 EST, Lab CollectCBC w/ Auto Diff: Blood, Stat collect, 10/16/17 20:04:00 EST, Once, Stop date 10/16/17 20:05:00 EST, Lab CollectCMP: Blood, Stat collect, 10/16/17 20:04:00 EST, Once, Stop date 10/16/17 20:05:00 EST, Lab CollectCarbamazepine Level: Blood, Stat collect, 10/16/17 20:04:00 EST, Stop date 10/16/17 20:05:00 EST, Lab CollectDrug Screen Urine: Urine, Stat collect, 10/16/17 20:04:00 EST, Once, Stop date 10/16/17 20:05:00 EST, Nurse collectExtra SST Tube: Blood, Stat collect, Collected, 10/16/17 21:09:00 EST by [email or web address], Once, Stop date 10/16/17 21:09:00 EST, Lab Collect, Venous Draw, YesSalicylate Level: Blood, Stat collect, 10/16/17 20:04:00 EST, Once, Stop date 10/16/17 20:05:00 EST, Lab CollectU Beta Hcg Qual: Urine, Stat collect, 10/16/17 20:04:00 EST, Once, Stop date 10/16/17 20:05:00 EST, Nurse collecteGFR: Blood, Stat collect, Collected, 10/16/17 21:09:00 EST, Once, Stop date 10/16/17 21:09:00 EST, Lab Collect. Results review: Lab results : Lab View 10/16/2017 21:09 EST WBC 8.9 E9/L RBC 5.0 E12/L Hgb 14.6 gm/dL Hct 42.6 % MCV 84.5 fL MCH 29.0 pg MCHC 34.3 gm/dL RDW 13.3 % Platelet 263.0 E9/L MPV 7.9 fL Neutro Auto 51.3 % Lymph Auto 39.5 % [place] Auto 7.9 % Eos Auto 1.1 % Basophil Auto 0.2 % Neutro Absolute 4.6 E9/L Lymph Absolute 3.5 E9/L [place] Absolute 0.7 E9/L Eos Absolute 0.1 E9/L Basophil Absolute 0.0 E9/L Glucose Lvl 125 mg/dL BUN 12 mg/dL Creatinine 0.8 mg/dL eGFR >60 mL/min/1.73 m2 eGFR AA >60 mL/min/1.73 m2 BUN/Creat Ratio 15 Sodium Lvl 138 mmol/L Potassium Lvl 3.9 mmol/L Chloride 107 mmol/L CO2 25 mmol/L AGAP 10 mEq/L Calcium Lvl 9.0 mg/dL Alk Phos 91 Int._Unit/L ALT 47 Int._Unit/L HI AST 25 Int._Unit/L Total Protein 7.3 gm/dL Albumin Lvl 4.0 gm/dL Globulin 3.3 gm/dL A/G Ratio 1.2 Bili Total 0.4 mg/dL Acetaminoph Lvl <10 microgram/mL LOW Carbamaz Lvl <2.0 microgram/mL LOW Salicylate Lvl <4 mg/dL LOW Ethanol Lvl <5 mg/dL 10/16/2017 20:11 EST U Amph Scr Negative U Daniella Scr Negative U Benzodia Scr Negative U Cannab Scr Negative U Cocaine Scr Negative U Opiate Scr Negative U PCP Scr Negative U beta hCG Ql Negative . Notes: the patient is seen by the PA initially. She presented for mental health evaluation. The patient has reported hallucinations. The voices were telling her to hurt others. She has been threatening the staff at the long-term. She calmed in the emergency room. The bloodwork is unremarkable negative drug screen. The patient is seen by the [facility] and she will be admitted to [facility] treatment., Critical Care time 40 minutes.. Impression and Plan Diagnosis Schizoaffective disorder (IVD13-GH F25.9, Discharge, Medical) Bipolar disorder (YOQ28-RF F31.9, Discharge, Medical) Plan Condition: Stable. Disposition: Transfer to other location: Time: 10/17/17 00:30:00, Facility name: [facility]. Counseled: Patient, Family, Regarding diagnosis, Regarding diagnostic results, Regarding treatment plan. [facility] Comment on above: Result Comment: Elec tronically Signed By: Viky Vasquez PA-C\.br\Date and Time Signed: 10/16/17 21:30 EST\.br\Electronically Co-Signed By: Eddie Oro M.D.\.br\Date and Time Co-Signed: 10/17/17 05:42 EST ED Patient Education Noteon 10-17-2017 ED Patient Education Note Patient Education Materials Follows: Normal [facility] ED Patient Summaryon 018 ED Patient Summary (Inserted Image. Silvia ble to display) [place] [id number] Patient Discharge Instructions Person Information Name: CRIS MAGANA Age: 17 Years Date: 10/16/2017 7:25 PMDischarge Diagnosis: Bipolar disorder; Schizoaffective disorder Primary Care Physician: Juan Luis MEDINA, Barbara Jean Provider InformationPrimary Provider: Eddie Oro M.D. Tare Worker:None The exam and treatment you received in the Emergency Department were for an urgent problem and are not intended as complete care. It is important that you follow up with a doctor, nurse practitioner, or physician?s housing assistant property manager for ongoing care. If your symptoms become worse or you do not improve as expected and you are unable to reach your usual health care provider, you should return to the Emergency Department. We are available 24 hours a day. CRIS MAGANA has been given the following list of patient education materials, prescriptions and follow-up instructions: Follow-up Instructions: In the event that this physician does not participate in your insurance network, please consult with your insurance company to find a nearby participating provider. Patient Education Materials: Medications Given:Medication Dose Route No medications found. Medication Information:Medications to Continue with No ChangesOther Medicationsoxcarbazepine (oxcarbazepine 300 mg Tab) 2 Tabs By Mouth 2 times a day.paliperidone (paliperidone 3 mg oral tablet, extended release) 1 Tabs By Mouth once a day (in the morning).trazodone (traZODONE 150 mg Tab) 1 Tabs By Mouth once a day (at bedtime).Comment: Pharmacy Information: Thank you for choosing [facility] Patient Education Materials: MATT German ANGELINA M , have received the following patient education materials/instructions and have verbalized understanding: Patient Education Materials: Follow-up Instructions: Prescriptions: Patient Signature Date Clinician/Nurse Signature Date 10/17/17 07:46:40 Normal [facility] Acetamnphn Lvlon 10-16-2017 Acetaminophen mass conc <10 Low 15-30 [facility] Comment on above: Performed By: #### 2 032453, [id number], 1087952, 43296061, 5227035, 5208891, 7255809 ####[facility] [address] [place] [address] Auto Diffon 10-16-2017 Basophils Auto #/vol (Bld) 0.2 % Normal 0.0-2.0 [facility] Comment on above: Order Comment: Order Added by Discern Expert. Performed By: #### 2 327376, 9913768, 1843066, 81187619, 1596371, 4788065, 7776352 ####[facility] [address] [place] [address] Basophils Auto #/vol (Bld) 0.0 E9/L Normal 0.0-0.2 [facility] Comment on above: Order Comment: Order Added by Discern Expert. Performed By: #### 2 804357, 9630216, 0528677, 21356845, 9561392, 6559836, 8383195 ####[facility] [address] [place] [address] Eosinophils 0.1 E9/L Normal 0.0-0.5 [facility] Comment on above: Order Comment: Order Added by Discern Expert. Performed By: #### 2 091991, 2552131, 2207645, 39818905, 5731432, 6821797, 6705604 ####[place] [address] [place] [address] Eosinophils/100 leukocytes 1.1 % Normal 0.0-8.0 [facility] Comment on above: Order Comment: Order Added by Nita Expert. Performed By: #### 2 452860, 3122756, 6899348, 99221894, 4401333, 8257380, 8044280 ####[address] [place] [address] Lymphocytes 3.5 E9/L Normal 1.0-4.0 [facility] Comment on above: Order Comment: Order Added by Nita Expert. Performed By: #### 2 145312, 7058474, 4047486, 04402024, 0152693, 1493210, 3378665 ####[address] [address] Lymphocytes/100 leukocytes 39.5 % Normal 14.0-50.0 [facility] Comment on above: Order Comment: Order Added by Nita Expert. Performed By: #### 2 147381, 9366476, 7088162, 89983347, 3026415, 4237031, 2936124 ####[facility] [address] [place] [address] Monocytes 0.7 E9/L Normal 0.2-1.0 [facility] Comment on above: Order Comment: Order Added by Nita Expert. Performed By: #### 2 025051, 5737133, 8194465, 20614870, 5489722, 6363334, 9423964 ####[address] [place] [address] Monocytes/100 leukocytes 7.9 % Normal 4.0-14.0 [facility] Comment on above: Order Comment: Order Added by Discern Expert. Performed By: #### 2 250834, 7129437, 5667935, 59184412, 5399541, 5005194, 4490951 ####[facility] [address] [place] [address] Neutrophils 4.6 E9/L Normal 2.0-7.5 [facility] Comment on above: Order Comment: Order Added by Discern Expert. Performed By: #### 2 167224, 0482807, 6822859, 83032104, 1745519, 0436169, 6754071 ####[address] [address] Neutrophils/100 leukocytes 51.3 % Normal 36.0-75.0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 84967250, 0516069, 2829195 ####[facility] [address] [place] [address] Monocytes 0.7 E9/L Normal 0.2-1.0 [facility] Comment on above: Order Comment: Order Added by Nita Expert. Performed By: #### 2 959730, 5102533, 4415015, 38776571, 0398734, 2061752 ####[facility] [address] [place] [address] Monocytes/100 leukocytes 7.5 % Normal 4.0-14.0 [facility] Comment on above: Order Comment: Order Added by Nita Expert. Performed By: #### 2 712886, 5989166, 6871908, 42018581, 4941144, 2470961 ####[facility] [address] [place] [address] Neutrophils 4.0 E9/L Normal 2.0-7.5 [facility] Comment on above: Order Comment: Order Added by Discern Expert. Performed By: #### 2 000305, 5241092, 2426281, 75165466, 6213821, 8766207 ####[address] [address] Neutrophils/100 leukocytes 43.6 % Normal 36.0-75.0 [facility] Comment on above: Order Comment: Order Added by Discern Expert. Performed By: #### 2 601184, 0863660, 6972905, 21589708, 0522417, 9869150 ####[address] [address] CBC w/ Auto Diffon 7 Erythrocyte distribution width Auto Ratio (RBC) 13.0 % Normal 10.9-14.2 [facility] Comment on above: Performed By: #### 2 604778, 9543932, 8105533, 26808783, 6050227, 6923103 ####[place] [address] Erythrocytes (RBC) 5.0 E12/L Normal 4.3-5.9 [facility] Comment on above: Performed By: #### 2 228059, 7110340, 3634684, 33613200, 2925669, 8216465 ####[address] [address] Hematocrit (HCT) 42.9 % Normal 34.0-46.0 [facility] Comment on above: Performed By: #### 2 350955, 0094211, 8257921, 47274489, 1737565, 4409816 ####[place] [address] [place] [address] Hemoglobin mass conc (Bld) 14.8 g/dL Normal 12.0-16.0 [facility] Comment on above: Performed By: #### 2 389371, 6520872, 5293102, 62073477, 8718309, 8464329 ####[address] [address] MCH 29.4 pg Normal 27.0-34.0 [facility] Comment on above: Performed By: #### 2 651845, 1323857, 3183922, 70656719, 0781619, 0626346 ####[facility] [address] [place] [address] MCHC mass conc (RBC) 34.5 g/dL Normal 31.4-39.3 [facility] Comment on above: Performed By: #### 2 974303, 5780230, 4191740, 38952258, 0201406, 0504308 ####[facility] [address] [place] [address] MCV 85.2 fL Normal 80.0-100.0 [facility] Comment on above: Performed By: #### 2 182705, 1895404, 7786850, 70320142, 4368271, 9864614 ####[facility] [address] [place] 8[address]057 Platelet mean volume (PMV) 7.6 fL Normal 6.4-10.8 [facility] Comment on above: Performed By: #### 2 697936, 8011141, 2598597, 43423780, 9164412, 3394000 ####[facility] [address] [place] [address] Platelets 226.0 E9/L Normal 150.0-500. 0 [facility] Comment on above: Performed By: #### 2 008406, 4092336, 4197341, 03484463, 7190497, 9229641 ####[facility] [address] [place] [address] WBC (Leukocytes) 9.3 E9/L Normal 4.0-11.0 [facility] Comment on above: Performed By: #### 2 933357, 9929813, 8795110, 75835344, 7899382, 9693884 ####[facility] [address] [place] [address] CMPon 08-07-2017 Alanine aminotransferase (ALT) 26 Int._Unit/L Normal 6-46 [facility] Comment on above: Performed By: #### 2 492573, 2455582, 8440153, 41573324, 9874359, 3390630 ####[facility] [address] [place] [address] Albumin 1.1 g/dL Normal 1.1-2.2 [facility] Comment on above: Performed By: #### 2 339222, 5767463, 5643854, 92452212, 1176419, 7010450 ####[facility] [address] [place] [address] Albumin 4.1 g/dL Normal 3.3-5.0 [facility] Comment on above: Performed By: #### 2 784740, 6283428, 6874897, 93959336, 0357380, 2540666 ####[facility] [address] [place] 8[address]057 Alkaline phosphatase (ALP) 85 Int._Unit/L Normal 21-98 [facility] Comment on above: Performed By: #### 2 642617, 6445801, 1109938, 68400480, 5815796, 9759568 ####[facility] [address] [place] [address] Aspartate aminotransferase (AST) 21 Int._Unit/L Normal 5-43 [facility] Comment on above: Performed By: #### 2 208848, 0466314, 5019911, 65224380, 6519188, 4460293 ####[facility] [address] [place] [address] Bilirubin (total) 0.3 mg/dL Normal 0.0-1.1 [facility] Comment on above: Performed By: #### 2 339811, 4686651, 7116422, 04692776, 2273723, 9599916 ####[facility] [address] [place] [address] BUN/Creatinine Ratio 15 No Units Normal 10-20 [facility] Comment on above: Performed By: #### 2 862578, 7292084, 8713120, 18477923, 1369850, 9198697 ####[facility] [address] [place] [address] Creatinine 0.8 mg/dL Normal 0.5-1.3 [facility] Comment on above: Performed By: #### 2 437995, 0163559, 8528751, 59467925, 9133362, 4844110 ####[facility] [address] [place] [address] Globulin 3.7 g/dL Normal 1.4-4.0 [facility] Comment on above: Performed By: #### 2 293650, 8139438, 9258719, 03913126, 0234083, 4759426 ####[facility] [address] [place] [address] Protein 7.8 g/dL Normal 6.0-7.8 [facility] Comment on above: Performed By: #### 2 810590, 6529877, 2787063, 48558611, 3493381, 0386831 ####[facility] [address] [place] [address] Urea nitrogen 12 mg/dL Normal 5-21 [facility] Comment on above: Performed By: #### 2 896831, 1869154, 0923723, 57370725, 3163014, 2305657 ####[facility] [address] [place] [address] Anion gap 12 mmol/L Normal 6-16 [facility] Comment on above: Performed By: #### 2 962894, 1799148, 1385923, 70565719, 8776058, 2210637 ####[facility] [address] [place] [address] Calcium 8.9 mg/dL Normal 8.9-11.1 [facility] Comment on above: Performed By: #### 2 154993, 0334109, 3553023, 66600991, 3977864, 1346014 ####[facility] [address] [place] [address] Chloride 106 mmol/L Normal 101-111 [facility] Comment on above: Performed By: #### 2 932634, 0041102, 3572190, 79186141, 1547168, 3457692 ####[facility] [address] [place] [address] CO2 24 mmol/L Normal 21-31 [facility] Comment on above: Performed By: #### 2 557182, 2993466, 0477336, 58547375, 1194083, 8142042 ####[facility] [address] [place] [address] Glucose mass conc 68 mg/dL Normal 55-199 [facility] Comment on above: Result Comment: If t his glucose result represents a fasting glucose, interpretation should refer to the following reference range: 55-99 mg/dL Performed By: #### 2 906842, 6262909, 3640885, 25351222, 2739827, 3108498 ####[facility] [address] [place] [address] Potassium molar conc 3.6 mmol/L Normal 3.5-5.3 [facility] Comment on above: Performed By: #### 2 095549, 3560598, 9006513, 86972060, 5810447, 9819231 ####[facility] [address] [place] [address] Sodium 138 mmol/L Normal 135-145 [facility] Comment on above: Performed By: #### 2 558143, 7684854, 4990565, 55389563, 2817221, 6345948 ####[facility] [address] [place] [address] Coding Summary.on 08-07-2017 Coding Summary. CODING DATE: 017 FINAL [facility] STATUS: Home (Routine DC) PAYOR: Medicaid EA DESCRIPTION 0471 PLAIN FILM 0823 BIPOLAR DISORDERS ADMIT DX: REASON FOR VISIT DX: M54.2 Cervicalgia FINAL DX: PRINCIPAL: F39 Unspecified mood [affective] disorder SECONDARY: M54.2 Cervicalgia W19.XXXA Unspecified fall, initial encounter F17.210 Nicotine dependence, cigarettes, uncomplicated PYMT PROC EAPG STAT DESCRIPTION DOCTOR NAME DATE NOTE: The code number assigned matches the documented diagnosis and / or procedure in the patient's chart. However, the narrative phrase printed from the coding software may appear abbreviated, or result in slightly different terminology. Revised Coded By: Araceli Resendez Revised Date Saved: 08/07/2017 06:12 pm Normal [facility] ED Clinical Summaryon 2016 ED Clinical Summary (Inserted Image. Silvia ble to display) [place] [id number] ED Clinical SummaryPerson Information Name: CRIS MAGANA/Eitan Age: 17 Years : 2000 12:00 AM Sex: Female Language:Italian PCP: Barbara Mcknight MD Marital Status:Single Visit Id: Visit Reason:Homicidal ideation; Suicidal thoughts; SUICIDAL Speciality: Acuity: 2 Enc Type: Emergency Med Service: Emergency Arrival:08/07/2017 12:16 PM Discharge: 08/07/2017 4:21 PM LOS: 000 04:05 Checkin:08/07/2017 12:16 PM Checkout: 08/07/2017 4:21 PM Dispo Type: Home (Routine DC) EVENTS:Event Name Event Status Request Date/Time Start Date/Time Complete Date/Time Arrive Complete 08/07/2017 12:16 PM 08/07/2017 12:16 PM 08/07/2017 12:16 PM Document Home Meds Complete 08/07/2017 12:16 PM 08/07/2017 12:47 PM 08/07/2017 12:47 PM Triage Complete 08/07/2017 12:16 PM 08/07/2017 12:32 PM 08/07/2017 12:32 PM Bed Assign Complete 08/07/2017 12:32 PM 08/07/2017 12:32 PM 08/07/2017 12:[address] Exam Complete 08/07/2017 12:32 PM 08/07/2017 12:45 PM 08/07/2017 12:45 PM RN Exam Complete 08/07/2017 12:32 PM 08/07/2017 12:47 PM 08/07/2017 12:47 PM Registration Complete 08/07/2017 12:45 PM 08/07/2017 12:51 PM 08/07/2017 12:51 PM Reg Complete Request 08/07/2017 12:51 PM Reg Bed Request Complete 08/07/2017 12:51 PM 08/07/2017 12:51 PM 08/07/2017 12:51 PM Consult Request 08/07/2017 1:06 PM Pending Labs Complete 08/07/2017 1:06 PM 08/07/2017 3:07 PM Lab Complete 08/07/2017 1:06 PM 08/07/2017 3:07 PM Urine Collect Complete 08/07/2017 1:06 PM 08/07/2017 1:32 PM Meds Admin Complete 08/07/2017 1:06 PM 08/07/2017 1:15 PM Patient Care Request 08/07/2017 1:06 PM Pending Labs Complete 08/07/2017 2:34 PM 08/07/2017 2:34 PM 08/07/2017 2:50 PM Lab Complete 08/07/2017 2:34 PM 08/07/2017 2:34 PM 08/07/2017 2:50 PM Pending Labs Complete 08/07/2017 2:44 PM 08/07/2017 2:44 PM 08/07/2017 2:44 PM Lab Complete 08/07/2017 2:44 PM 08/07/2017 2:44 PM 08/07/2017 2:44 PM Discharge Complete 08/07/2017 4:05 PM 08/07/2017 4:21 PM 08/07/2017 4:21 PM Transfer Complete 08/07/2017 4:21 PM 08/07/2017 4:21 PM 08/07/2017 4:21 PM ADDRESS:[address] [place] [id number] [facility] DOC NOTES: Patient: CRIS MAGANA Age: 17 years Sex: Female : 2000 Associated Diagnoses: None Author: Ryan Kevin MD Basic Information Time seen: Immediately upon arrival. History source: Patient. Arrival mode: Walking. History limitation: None. History of Present Illness 17-year-old female presents for psychiatric evaluation as she has both homicidal and suicidal ideas at home. She attributes this to generalized stress in her home environment and requests admission to the hospital. She denies any illegal drug use. She states she has been taking her psychotropic medications. She did not have breakfast this morning. Review of Systems /Unless otherwise stated in this report the patient's positive and negative responses for review of systems for constitutional, eyes, ENT, cardiovascular, respiratory, gastrointestinal, neurological, , musculoskeletal, and integument systems and related systems to the presenting problem are either stated in the history of present illness or were not pertinent or were negative for the symptoms and/or complaints related to the presenting medical problem Health Status Medications: (Selected) Inpatient MedicationsOrderedAtivan 1 mg Tab: 2 mg = 2 tab(s), Tab, Oral, Once, Stop date 08/07/17 13:05:00 EST, STAT, Start date 08/07/17 13:05:00 ESTDocumented MedicationsDocumentedcitalopr am 20 mg Tab: 20 mg = 1 tab(s), Oral, Daily, Refills(s) 0risperidone 1 mg oral tablet: Refills(s) 0. Menstrual history: Depo. Past Medical/ Family/ Social History Medical history: ResolvedDiabetes (SNOMED CT [id number]): Resolved.Homicidal thoughts (SNOMED CT 279209694): Resolved.Suicidal plans (SNOMED CT 519661675): Resolved.. Surgical history: None ([id number]).. Family history: No family history items have been selected or recorded.. Social history: Social & Psychosocial HabitsAlcohol Comment: rich. - 06/10/2017 18:11 - Kathy Vasquez RN N001/20/2017 Risk Assessment: Denies Alcohol Use07/02/2017 Frequency: DailySubstance Abuse Comment: denies. - 06/10/2017 18:11 - Kathy Vasquez RN N001/20/2017 Risk Assessment: Denies Substance AbuseTobacco Comment: smokes 2 ppd. - 06/10/2017 18:11 - Kathy Vasquez RN N001/20/2017 Risk Assessment: Denies Tobacco Use07/24/2017 Use: Current Every Day Smoker Type: Cigarettes Comment: Smoke 2 cigarettes a day - 07/24/2017 14:38 - Franny Valverde RN, Reviewed as documented in chart. Physical Examination Vital Signs Vital Signs 08/07/2017 14:01 EST Peripheral Pulse Rate 98 bpm Respiratory Rate 16 br/min Systolic Blood Pressure 120 mmHg Diastolic Blood Pressure 80 mmHg SpO2 100 % 08/07/2017 12:18 EST Temperature Oral 36.6 DegC Peripheral Pulse Rate 100 bpm Respiratory Rate 24 br/min HI Systolic Blood Pressure 125 mmHg Diastolic Blood Pressure 82 mmHg SpO2 96 % 08/06/2017 13:43 EST Temperature Oral 36.3 DegC Peripheral Pulse Rate 71 bpm Respiratory Rate 20 br/min Systolic Blood Pressure 132 mmHg Diastolic Blood Pressure 92 mmHg HI SpO2 98 % . General: Alert, no acute distress. Skin: Warm, dry, pink. Head: Normocephalic. Neck: No JVD. Eye: Pupils are equal, round and reactive to light, extraocular movements are intact, normal conjunctiva, No nystagmus. Ears, nose, mouth and throat: Oral mucosa moist. Cardiovascular: Regular rate and rhythm, No murmur. Respiratory: Respirations are non-labored, breath sounds are equal, Symmetrical chest wall expansion. Gastrointestinal: Soft, Nontender. Musculoskeletal: No deformity. Neurological: Alert and oriented to person, place, time, and situation, normal speech observed, normal coordination observed. Psychiatric: Appropriate mood & affect. Medical Decision Making Orders Launch Orders Laboratory:Salicylate Level (Order): Blood, Stat collect, 08/07/2017 13:05 EST, Once, Stop date 08/07/2017 13:05 EST, Lab CollectAcetaminophen Level (Order): Blood, Stat collect, 08/07/2017 13:05 EST, Once, Stop date 08/07/2017 13:05 EST, Lab CollectAlcohol Level (Order): Blood, Stat collect, 08/07/2017 13:05 EST, Once, Stop date 08/07/2017 13:05 EST, Lab CollectCMP (Order): Blood, Stat collect, 08/07/2017 13:05 EST, Once, Stop date 08/07/2017 13:05 EST, Lab CollectCBC w/ Auto Diff (Order): Blood, Stat collect, 08/07/2017 13:05 EST, Once, Stop date 08/07/2017 13:05 EST, Lab CollectDrug Screen Urine (Order): Urine, Stat collect, 08/07/2017 13:05 EST, Once, Stop date 08/07/2017 13:05 EST, Nurse collectU Beta Hcg Qual (Order): Urine, Stat collect, 08/07/2017 13:05 EST, Once, Stop date 08/07/2017 13:05 EST, Nurse collectPatient Care:Patient in a gown. (Order): 08/07/2017 13:05 EST, Patient in a gown.Pharmacy:Ativan 1 mg Tab (Order): 2 mg, Tab, Oral, Once, Stop date 08/07/2017 13:05 EST, STAT, Start date 08/07/2017 13:05 ESTConsults:Consult to Mental Health (Order): 08/07/2017 13:05 EST, Suicide, Consult and Co-manage. Results review: Lab results : Lab View 08/07/2017 14:29 EST WBC 9.3 E9/L RBC 5.0 E12/L Hgb 14.8 gm/dL Hct 42.9 % MCV 85.2 fL MCH 29.4 pg MCHC 34.5 gm/dL RDW 13.0 % Platelet 226.0 E9/L MPV 7.6 fL Neutro Auto 43.6 % Lymph Auto 47.5 % [place] Auto 7.5 % Eos Auto 1.0 % Basophil Auto 0.4 % Neutro Absolute 4.0 E9/L Lymph Absolute 4.4 E9/L HI [place] Absolute 0.7 E9/L Eos Absolute 0.1 E9/L Basophil Absolute 0.0 E9/L Glucose Lvl 68 mg/dL BUN 12 mg/dL Creatinine 0.8 mg/dL eGFR >60 mL/min/1.73 m2 eGFR AA >60 mL/min/1.73 m2 BUN/Creat Ratio 15 Sodium Lvl 138 mmol/L Potassium Lvl 3.6 mmol/L Chloride 106 mmol/L CO2 24 mmol/L AGAP 12 mEq/L Calcium Lvl 8.9 mg/dL Alk Phos 85 Int._Unit/L ALT 26 Int._Unit/L AST 21 Int._Unit/L Total Protein 7.8 gm/dL Albumin Lvl 4.1 gm/dL Globulin 3.7 gm/dL A/G Ratio 1.1 Bili Total 0.3 mg/dL Ethanol Lvl <5 mg/dL 08/07/2017 13:08 EST U Amph Scr Negative U Daniella Scr Negative U Benzodia Scr Negative U Cannab Scr Negative U Cocaine Scr Negative U Opiate Scr Negative U PCP Scr Negative U beta hCG Ql Negative . Impression and Plan Diagnosis Suicidal ideation ([id number] R45.851, Discharge, Emergency medicine, Medical) Calls-Consults - P, recommends They interviewed the patient and discussed her case and care with the attendance at the assisted living. This is not an uncommon complaint by the patient they are quite comfortable with creating a care plan and safety plan for the patient. She will be discharged back to her assisted living.. Plan Disposition: Discharged: to home. Patient was given the following educational materials: Suicidal Feelings: How to Help Yourself, Stress. Follow up with: Barbara Mcknight In 3 days 08/10/2017; [facility] As scheduled. MEDICAL INFORMATION: Prescriptions Given:PATIENT EDUCATION INFORMATION: Instructions:Stress; Suicidal Feelings: How to Help Yourself Follow up:With: Address: When: [facility] Comments: As scheduled With: Address: When: Barbara Mcknight [address] [place] [id number] [employer] In 3 days 08/10/2017 DIAGNOSIS:Suicidal ideation Normal [facility] ED Note-Physicianon 08-07-20 ED Note-Physician Patient: PEPE MAGANA Age: 17 years Sex: Female : 2000 Associated Diagnoses: None Author: Ryan Kevin MD Basic Information Time seen: Immediately upon arrival. History source: Patient. Arrival mode: Walking. History limitation: None. History of Present Illness 17-year-old female presents for psychiatric evaluation as she has both homicidal and suicidal ideas at home. She attributes this to generalized stress in her home environment and requests admission to the hospital. She denies any illegal drug use. She states she has been taking her psychotropic medications. She did not have breakfast this morning. Review of Systems /Unless otherwise stated in this report the patient's positive and negative responses for review of systems for constitutional, eyes, ENT, cardiovascular, respiratory, gastrointestinal, neurological, , musculoskeletal, and integument systems and related systems to the presenting problem are either stated in the history of present illness or were not pertinent or were negative for the symptoms and/or complaints related to the presenting medical problem Health Status Medications: (Selected) Inpatient MedicationsOrderedAtivan 1 mg Tab: 2 mg = 2 tab(s), Tab, Oral, Once, Stop date 08/07/17 13:05:00 EST, STAT, Start date 08/07/17 13:05:00 ESTDocumented MedicationsDocumentedcitalopr am 20 mg Tab: 20 mg = 1 tab(s), Oral, Daily, Refills(s) 0risperidone 1 mg oral tablet: Refills(s) 0. Menstrual history: Depo. Past Medical/ Family/ Social History Medical history: ResolvedDiabetes (SNOMED CT [id number]): Resolved.Homicidal thoughts (SNOMED CT [id number]): Resolved.Suicidal plans (SNOMED CT [id number]): Resolved.. Surgical history: None ([id number]).. Family history: No family history items have been selected or recorded.. Social history: Social & Psychosocial HabitsAlcohol Comment: rich. - 06/10/2017 18:11 - Kathy Vasquez RN01/20/2017 Risk Assessment: Denies Alcohol Use07/02/2017 Frequency: DailySubstance Abuse Comment: rich. - 06/10/2017 18:11 - Kathy Vasquez RN01/20/2017 Risk Assessment: Denies Substance AbuseTobacco Comment: smokes 2 ppd. - 06/10/2017 18:11 Kathy Perez RN01/20/2017 Risk Assessment: Denies Tobacco Use07/24/2017 Use: Current Every Day Smoker Type: Cigarettes Comment: Smoke 2 cigarettes a day - 07/24/2017 14:38 - Franny Valverde RN, Reviewed as documented in chart. Physical Examination Vital Signs Vital Signs 08/07/2017 14:01 EST Peripheral Pulse Rate 98 bpm Respiratory Rate 16 br/min Systolic Blood Pressure 120 mmHg Diastolic Blood Pressure 80 mmHg SpO2 100 % 08/07/2017 12:18 EST Temperature Oral 36.6 DegC Peripheral Pulse Rate 100 bpm Respiratory Rate 24 br/min HI Systolic Blood Pressure 125 mmHg Diastolic Blood Pressure 82 mmHg SpO2 96 % 08/06/2017 13:43 EST Temperature Oral 36.3 DegC Peripheral Pulse Rate 71 bpm Respiratory Rate 20 br/min Systolic Blood Pressure 132 mmHg Diastolic Blood Pressure 92 mmHg HI SpO2 98 % . General: Alert, no acute distress. Skin: Warm, dry, pink. Head: Normocephalic. Neck: No JVD. Eye: Pupils are equal, round and reactive to light, extraocular movements are intact, normal conjunctiva, No nystagmus. Ears, nose, mouth and throat: Oral mucosa moist. Cardiovascular: Regular rate and rhythm, No murmur. Respiratory: Respirations are non-labored, breath sounds are equal, Symmetrical chest wall expansion. Gastrointestinal: Soft, Nontender. Musculoskeletal: No deformity. Neurological: Alert and oriented to person, place, time, and situation, normal speech observed, normal coordination observed. Psychiatric: Appropriate mood & affect. Medical Decision Making Orders Launch Orders Laboratory:Salicylate Level (Order): Blood, Stat collect, 08/07/2017 13:05 EST, Once, Stop date 08/07/2017 13:05 EST, Lab CollectAcetaminophen Level (Order): Blood, Stat collect, 08/07/2017 13:05 EST, Once, Stop date 08/07/2017 13:05 EST, Lab CollectAlcohol Level (Order): Blood, Stat collect, 08/07/2017 13:05 EST, Once, Stop date 08/07/2017 13:05 EST, Lab CollectCMP (Order): Blood, Stat collect, 08/07/2017 13:05 EST, Once, Stop date 08/07/2017 13:05 EST, Lab CollectCBC w/ Auto Diff (Order): Blood, Stat collect, 08/07/2017 13:05 EST, Once, Stop date 08/07/2017 13:05 EST, Lab CollectDrug Screen Urine (Order): Urine, Stat collect, 08/07/2017 13:05 EST, Once, Stop date 08/07/2017 13:05 EST, Nurse collectU Beta Hcg Qual (Order): Urine, Stat collect, 08/07/2017 13:05 EST, Once, Stop date 08/07/2017 13:05 EST, Nurse collectPatient Care:Patient in a gown. (Order): 08/07/2017 13:05 EST, Patient in a gown.Pharmacy:Ativan 1 mg Tab (Order): 2 mg, Tab, Oral, Once, Stop date 08/07/2017 13:05 EST, STAT, Start date 08/07/2017 13:05 ESTConsults:Consult to Mental Health (Order): 08/07/2017 13:05 EST, Suicide, Consult and Co-manage. Results review: Lab results : Lab View 08/07/2017 14:29 EST WBC 9.3 E9/L RBC 5.0 E12/L Hgb 14.8 gm/dL Hct 42.9 % MCV 85.2 fL MCH 29.4 pg MCHC 34.5 gm/dL RDW 13.0 % Platelet 226.0 E9/L MPV 7.6 fL Neutro Auto 43.6 % Lymph Auto 47.5 % [place] Auto 7.5 % Eos Auto 1.0 % Basophil Auto 0.4 % Neutro Absolute 4.0 E9/L Lymph Absolute 4.4 E9/L HI [place] Absolute 0.7 E9/L Eos Absolute 0.1 E9/L Basophil Absolute 0.0 E9/L Glucose Lvl 68 mg/dL BUN 12 mg/dL Creatinine 0.8 mg/dL eGFR >60 mL/min/1.73 m2 eGFR AA >60 mL/min/1.73 m2 BUN/Creat Ratio 15 Sodium Lvl 138 mmol/L Potassium Lvl 3.6 mmol/L Chloride 106 mmol/L CO2 24 mmol/L AGAP 12 mEq/L Calcium Lvl 8.9 mg/dL Alk Phos 85 Int._Unit/L ALT 26 Int._Unit/L AST 21 Int._Unit/L Total Protein 7.8 gm/dL Albumin Lvl 4.1 gm/dL Globulin 3.7 gm/dL A/G Ratio 1.1 Bili Total 0.3 mg/dL Ethanol Lvl <5 mg/dL 08/07/2017 13:08 EST U Amph Scr Negative U Daniella Scr Negative U Benzodia Scr Negative U Cannab Scr Negative U Cocaine Scr Negative U Opiate Scr Negative U PCP Scr Negative U beta hCG Ql Negative . Impression and Plan Diagnosis Suicidal ideation ([id number], Discharge, Emergency medicine, Medical) Calls-Consults - [facility], recommends They interviewed the patient and discussed her case and care with the attendance at the assisted living. This is not an uncommon complaint by the patient they are quite comfortable with creating a care plan and safety plan for the patient. She will be discharged back to her assisted living.. Plan Disposition: Discharged: to home. Patient was given the following educational materials: Suicidal Feelings: How to Help Yourself, Stress. Follow up with: aBrbara Mcknight In 3 days 08/10/2017; [facility] As scheduled. Normal [facility] Comment on above: Result Comment: Elec tronically Signed By: Herberth MEDINA, Ryan\.br\Date and Time Signed: 08/07/17 15:54 EST ED Patient Education Noteon 08-07-2017 ED Patient Education Note Patient Education Materials Follows:MedicineStressStress- related medical problems are becoming increasingly common.The body has a built-in physical response to stressful situations. Faced with pressure, challenge or danger, we need to react quickly. Our bodies release hormones such as cortisol and adrenaline to help do this. These hormones are part of the fight or flight response and affect the metabolic rate, heart rate and blood pressure, resulting in a heightened, stressed state that prepares the body for optimum performance in dealing with a stressful situation.It is likely that early man required these mechanisms to stay alive, but usually modern stresses do not call for this, and the same hormones released in today's world can damage health and reduce coping ability.CAUSES? Pressure to perform at work, at school or in sports.? Threats of physical violence.? Money worries.? Arguments.? Family conflicts. ? Divorce or separation from significant other.? Bereavement.? New job or unemployment.? Changes in location.? Alcohol or drug abuse. SOMETIMES, THERE IS NO PARTICULAR REASON FOR DEVELOPING STRESS.Almost all people are at risk of being stressed at some time in their lives. 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 Temporary stress will go away when a situation is resolved. Most people can cope with short periods of stress, and it can often be relieved by relaxing, taking a walk or getting any type of exercise, chatting through issues with friends, or having a good night's sleep.? Chronic (long-term, continuous) stress is much harder to deal with. It can be psychologically and emotionally damaging. It can be harmful both for an individual and for friends and family.SYMPTOMSEveryone reacts to stress differently. There are some common effects that help us recognize it. In times of extreme stress, people may:? Shake uncontrollably.? Breathe faster and deeper than normal (hyperventilate).? Vomit.? For people with asthma, stress can trigger an attack.? For some people, stress may trigger migraine headaches, ulcers, and body pain.PHYSICAL EFFECTS OF STRESS MAY INCLUDE:? Loss of energy. ? Skin problems. ? Aches and pains resulting from tense muscles, including neck ache, backache and tension headaches. ? Increased pain from arthritis and other conditions. ? Irregular heart beat (palpitations).? Periods of irritability or anger. ? Apathy or depression.? Anxiety (feeling uptight or worrying). ? Unusual behavior.? Loss of appetite.? Comfort eating.? Lack of concentration.? Loss of, or decreased, sex-drive.? Increased smoking, drinking, or recreational drug use.? For women, missed periods.? Ulcers, joint pain, and muscle pain.Post-traumatic stress is the stress caused by any serious accident, strong emotional damage, or extremely difficult or violent experience such as rape or war.Post-traumatic stress victims can experience mixtures of emotions such as fear, shame, depression, guilt or anger. It may include recurrent memories or images that may be haunting. These feelings can last for weeks, months or even years after the traumatic event that triggered them. Specialized treatment, possibly with medicines and psychological therapies, is available.If stress is causing physical symptoms, severe distress or making it difficult for you to function as normal, it is worth seeing your caregiver. It is important to remember that although stress is a usual part of life, extreme or prolonged stress can lead to other illnesses that will need treatment. It is better to visit a doctor sooner rather than later. Stress has been linked to the development of high blood pressure and heart disease, as well as insomnia and depression.There is no diagnostic test for stress since everyone reacts to it differently. But a caregiver will be able to spot the physical symptoms, such as:? Headaches.? Shingles.? Ulcers.Emotional distress such as intense worry, low mood or irritability should be detected when the doctor asks pertinent questions to identify any underlying problems that might be the cause. In case there are physical reasons for the symptoms, the doctor may also want to do some tests to exclude certain conditions.If you feel that you are suffering from stress, try to identify the aspects of your life that are causing it. Sometimes you may not be able to change or avoid them, but even a small change can have a positive ripple effect. A simple lifestyle change can make all the difference.STRATEGIES THAT CAN HELP DEAL WITH STRESS:? Delegating or sharing responsibilities.? Avoiding confrontations. ? Learning to be more assertive. ? Regular exercise. ? Avoid using alcohol or street drugs to cope. ? Eating a healthy, balanced diet, rich in fruit and vegetables and proteins. ? Finding humor or absurdity in stressful situations. ? Never taking on more than you know you can handle comfortably. ? Organizing your time better to get as much done as possible. ? Talking to friends or family and sharing your thoughts and fears. ? Listening to music or relaxation tapes. ? Relaxation techniques like deep breathing, meditation, and yoga.? Tensing and then relaxing your muscles, starting at the toes and working up to the head and neck. If you think that you would benefit from help, either in identifying the things that are causing your stress or in learning techniques to help you relax, see a caregiver who is capable of helping you with this. Rather than relying on medications, it is usually better to try and identify the things in your life that are causing stress and try to deal with them.There are many techniques of managing stress including counseling, psychotherapy, aromatherapy, yoga, and exercise. Your caregiver can help you determine what is best for you.Document Released: 12/08/2003 Document Revised: 09/22/2014 Document Reviewed: 11/03/2008ExitCare? Patient Information ?2014 [facility] [employer] [facility]. This information is not intended to replace advice given to you by your health care provider. Make sure you discuss any questions you have with your health care provider.Suicidal Feelings, How to Help YourselfEveryone feels sad or unhappy at times, but depressing thoughts and feelings of hopelessness can lead to thoughts of suicide. It can seem as if life is too tough to handle. If you feel as though you have reached the point where suicide is the only answer, it is time to let someone know immediately. HOW TO COPE AND PREVENT SUICIDE? Let family, friends, teachers, or counselors know. Get help. Try not to isolate yourself from those who care about you. Even though you may not feel sociable, talk with someone every day. It is best if it is [id number]. Remember, they will want to help you.? Eat a regularly spaced and well-balanced diet. ? Get plenty of rest. ? Avoid alcohol and drugs because they will only make you feel worse and may also lower your inhibitions. Remove them from the home. If you are thinking of taking an overdose of your prescribed medicines, give your medicines to someone who can give them to you one day at a time. If you are on antidepressants, let your caregiver know of your feelings so he or she can provide a safer medicine, if that is a concern.? Remove weapons or poisons from your home.? Try to stick to routines. Follow a schedule and remind yourself that you have to keep that schedule every day. ? Set some realistic goals and achieve them. Make a list and cross things off as you go. Accomplishments give a sense of worth. Wait until you are feeling better before doing things you find difficult or unpleasant to do.? If you are able, try to start exercising. Even half-hour periods of exercise each day will make you feel better. Getting out in the sun or into nature helps you recover from depression faster. If you have a favorite place to walk, take advantage of that.? Increase safe activities that have always given you pleasure. This may include playing your favorite music, reading a good book, painting a picture, or playing your favorite instrument. Do whatever takes your mind off your depression.? Keep your living space well-lighted.GET HELPContact a suicide hotline, crisis center, or local suicide prevention center for help right away. Local centers may include a hospital, clinic, community service organization, social service provider, or health department.? Call your local emergency services (911 in the [place]).? Call a suicide hotline:? 2-657-338-TALK ( ) in the [place].? 0-435-CDHHRGZ ( ) in the [place].? in the [place] for [place]-speaking counselors.? 1-704-220-4TTY ( ) in the [place] for TTY users.? Visit the following websites for information and help:? National Suicide Prevention Lifeline: www.suicidepreventionlifeline .org? Hopeline: www.hopeline.com? [place] [employer] for Suicide Prevention: www.afsp.org? For lesbian, hooks, bisexual, transgender, or questioning youth, contact The New Project:? 3-380-7-U-NEW ( ) in the [place].? www.thetrevorproject.org? In [place], treatment resources are listed in each province with listings available under [employer] or similar titles. Another source for Crisis Centres by Province is located at http://www.suicideprevention. ca/ni-xlensv-hxl/pnqc-x-wmfpn l-xsxown-qkt/crisis-centresDo cument Released: 03/23/2004 Document Revised: 12/09/2012 Document Reviewed: 01/12/2015ExitCare? Patient Information ?2015 [employer]. This information is not intended to replace advice given to you by your health care provider. Make sure you discuss any questions you have with your health care provider. Normal [facility] ED Patient Summaryon 017 ED Patient Summary (Inserted Image. Silvia ble to display) [place] [id number] Patient Discharge Instructions Person Information Name: CRIS MAGANA Age: 17 Years Date: 08/07/2017 12:16 PMDischarge Diagnosis: Suicidal ideation Primary Care Physician: Barbara Mcknight MD Provider InformationPrimary Provider: Herberth MEDINA, formerly [facility] Centersician Tare Worker:None The exam and treatment you received in the Emergency Department were for an urgent problem and are not intended as complete care. It is important that you follow up with a doctor, nurse practitioner, or physician?s housing assistant property manager for ongoing care. If your symptoms become worse or you do not improve as expected and you are unable to reach your usual health care provider, you should return to the Emergency Department. We are available 24 hours a day. MATTELIECRIS Jodee has been given the following list of patient education materials, prescriptions and follow-up instructions: Follow-up Instructions:With: Address: When: [facility] Comments: As scheduled With: Address: When: Barbara Mcknight [address] [place], [place] [address], [place] [id number] Business (1) In 3 days 08/10/2017 In the event that this physician does not participate in your insurance network, please consult with your insurance company to find a nearby participating provider. Patient Education Materials:Stress; Suicidal Feelings: How to Help Yourself Medications Given:Medication Dose Route lorazepam 2.00 mg Oral Medication Information:Medications to Continue with No ChangesOther Medicationscitalopram (citalopram 20 mg Tab) 1 Tabs By Mouth every day.risperidone (risperidone 1 mg oral tablet) Comment: Pharmacy Information: [facility] Kristi Thank you for choosing [facility] Patient Education Materials: StressStress-related medical problems are becoming increasingly common.The body has a built-in physical response to stressful situations. Faced with pressure, challenge or danger, we need to react quickly. Our bodies release hormones such as cortisol and adrenaline to help do this. These hormones are part of the fight or flight response and affect the metabolic rate, heart rate and blood pressure, resulting in a heightened, stressed state that prepares the body for optimum performance in dealing with a stressful situation.It is likely that early man required these mechanisms to stay alive, but usually modern stresses do not call for this, and the same hormones released in today's world can damage health and reduce coping ability.CAUSES? Pressure to perform at work, at school or in sports.? Threats of physical violence.? Money worries.? Arguments.? Family conflicts. ? Divorce or separation from significant other.? Bereavement.? New job or unemployment.? Changes in location.? Alcohol or drug abuse. SOMETIMES, THERE IS NO PARTICULAR REASON FOR DEVELOPING STRESS.Almost all people are at risk of being stressed at some time in their lives. It is important to know that some stress is temporary and some is usp.? Temporary stress will go away when a situation is resolved. Most people can cope with short periods of stress, and it can often be relieved by relaxing, taking a walk or getting any type of exercise, chatting through issues with friends, or having a good night's sleep.? Chronic (long-term, continuous) stress is much harder to deal with. It can be psychologically and emotionally damaging. It can be harmful both for an individual and for friends and family.SYMPTOMSEveryone reacts to stress differently. There are some common effects that help us recognize it. In times of extreme stress, people may:? Shake uncontrollably.? Breathe faster and deeper than normal (hyperventilate).? Vomit.? For people with asthma, stress can trigger an attack.? For some people, stress may trigger migraine headaches, ulcers, and body pain.PHYSICAL EFFECTS OF STRESS MAY INCLUDE:? Loss of energy. ? Skin problems. ? Aches and pains resulting from tense muscles, including neck ache, backache and tension headaches. ? Increased pain from arthritis and other conditions. ? Irregular heart beat (palpitations).? Periods of irritability or anger. ? Apathy or depression.? Anxiety (feeling uptight or worrying). ? Unusual behavior.? Loss of appetite.? Comfort eating.? Lack of concentration.? Loss of, or decreased, sex-drive.? Increased smoking, drinking, or recreational drug use.? For women, missed periods.? Ulcers, joint pain, and muscle pain.Post-traumatic stress is the stress caused by any serious accident, strong emotional damage, or extremely difficult or violent experience such as rape or war.Post-traumatic stress victims can experience mixtures of emotions such as fear, shame, depression, guilt or anger. It may include recurrent memories or images that may be haunting. These feelings can last for weeks, months or even years after the traumatic event that triggered them. Specialized treatment, possibly with medicines and psychological therapies, is available.If stress is causing physical symptoms, severe distress or making it difficult for you to function as normal, it is worth seeing your caregiver. It is important to remember that although stress is a usual part of life, extreme or prolonged stress can lead to other illnesses that will need treatment. It is better to visit a doctor sooner rather than later. Stress has been linked to the development of high blood pressure and heart disease, as well as insomnia and depression.There is no diagnostic test for stress since everyone reacts to it differently. But a caregiver will be able to spot the physical symptoms, such as:? Headaches.? Shingles.? Ulcers.Emotional distress such as intense worry, low mood or irritability should be detected when the doctor asks pertinent questions to identify any underlying problems that might be the cause. In case there are physical reasons for the symptoms, the doctor may also want to do some tests to exclude certain conditions.If you feel that you are suffering from stress, try to identify the aspects of your life that are causing it. Sometimes you may not be able to change or avoid them, but even a small change can have a positive ripple effect. A simple lifestyle change can make all the difference.STRATEGIES THAT CAN HELP DEAL WITH STRESS:? Delegating or sharing responsibilities.? Avoiding confrontations. ? Learning to be more assertive. ? Regular exercise. ? Avoid using alcohol or street drugs to cope. ? Eating a healthy, balanced diet, rich in fruit and vegetables and proteins. ? Finding humor or absurdity in stressful situations. ? Never taking on more than you know you can handle comfortably. ? Organizing your time better to get as much done as possible. ? Talking to friends or family and sharing your thoughts and fears. ? Listening to music or relaxation tapes. ? Relaxation techniques like deep breathing, meditation, and yoga.? Tensing and then relaxing your muscles, starting at the toes and working up to the head and neck. If you think that you would benefit from help, either in identifying the things that are causing your stress or in learning techniques to help you relax, see a caregiver who is capable of helping you with this. Rather than relying on medications, it is usually better to try and identify the things in your life that are causing stress and try to deal with them.There are many techniques of managing stress including counseling, psychotherapy, aromatherapy, yoga, and exercise. Your caregiver can help you determine what is best for you.Document Released: 12/08/2003 Document Revised: 09/22/2014 Document Reviewed: 11/03/2008ExitCare? Patient Information ?2015 [employer]. This information is not intended to replace advice given to you by your health care provider. Make sure you discuss any questions you have with your health care provider.Suicidal Feelings, How to Help YourselfEveryone feels sad or unhappy at times, but depressing thoughts and feelings of hopelessness can lead to thoughts of suicide. It can seem as if life is too tough to handle. If you feel as though you have reached the point where suicide is the only answer, it is time to let someone know immediately. HOW TO COPE AND PREVENT SUICIDE? Let family, friends, teachers, or counselors know. Get help. Try not to isolate yourself from those who care about you. Even though you may not feel sociable, talk with someone every day. It is best if it is [id number]. Remember, they will want to help you.? Eat a regularly spaced and well-balanced diet. ? Get plenty of rest. ? Avoid alcohol and drugs because they will only make you feel worse and may also lower your inhibitions. Remove them from the home. If you are thinking of taking an overdose of your prescribed medicines, give your medicines to someone who can give them to you one day at a time. If you are on antidepressants, let your caregiver know of your feelings so he or she can provide a safer medicine, if that is a concern.? Remove weapons or poisons from your home.? Try to stick to routines. Follow a schedule and remind yourself that you have to keep that schedule every day. ? Set some realistic goals and achieve them. Make a list and cross things off as you go. Accomplishments give a sense of worth. Wait until you are feeling better before doing things you find difficult or unpleasant to do.? If you are able, try to start exercising. Even half-hour periods of exercise each day will make you feel better. Getting out in the sun or into nature helps you recover from depression faster. If you have a favorite place to walk, take advantage of that.? Increase safe activities that have always given you pleasure. This may include playing your favorite music, reading a good book, painting a picture, or playing your favorite instrument. Do whatever takes your mind off your depression.? Keep your living space well-lighted.GET HELPContact a suicide hotline, crisis center, or local suicide prevention center for help right away. Local centers may include a hospital, clinic, community service organization, social service provider, or health department.? Call your local emergency services (911 in the [place]).? Call a suicide hotline:? 5-837-360-TALK ( ) in the [place].? 1-082-RXSILDM ( ) in the [place].? in the [place] for [place]-speaking counselors.? 8-816-205-4TTY ( ) in the [place] for TTY users.? Visit the following websites for information and help:? National Suicide Prevention Lifeline: www.suicidepreventionlifeline .org? Hopeline: www.hopeline.com? [place] [employer] for Suicide Prevention: www.afsp.org? For lesbian, hooks, bisexual, transgender, or questioning youth, contact The New Project:? 9-293-8-U-NEW ( ) in the [place].? www.thetrevorproject.org? In [place], treatment resources are listed in each province with listings available under [employer] or similar titles. Another source for Crisis Centres by Province is located at http://www.suicideprevention. ca/tx-tatobt-hrs/gout-v-zkrjl k-pqmgwz-pmg/crisis-centresDo cument Released: 03/23/2004 Document Revised: 12/09/2012 Document Reviewed: 01/12/2015ExitCare? Patient Information ?2015 [employer], [place]. This information is not intended to replace advice given to you by your health care provider. Make sure you discuss any questions you have with your health care provider.MATT German ANGELINA M , have received the following patient education materials/instructions and have verbalized understanding: Patient Education Materials: Stress; Suicidal Feelings: How to Help Yourself Follow-up Instructions: With: Address: When: [facility] Comments: As scheduled With: Address: When: Barbara Mcknight [address] [place], [place] [address], [facility] [place] [address] Business (1) In 3 days 08/10/2017 Prescriptions: Patient Signature Date Clinician/Nurse Signature 08/07/17 16:21:09 Normal [facility] Ethanolon 08-07-2017 Ethanol mg/dL Normal <=7 [facility] Comment on above: Performed By: #### 2 [id number] ####[facility] [address] [place] [address] Progress Note-Nurseon 2016 Progress Note-Nurse 1509: Patient in bed finishing up her food, had been talking with P. Patient within view - Guardian at bedside. 1530: Patient requesting more food, Guardian at bedside. 1600: Patient OK for DC by Andrei and Dr. Kevin with safety plan. Patient has 24 hour supervision and a follow-up appointment for August 09 at 6pm with Mariah and [facility] counciler. Normal [facility] Salicylateon 08-07-2017 Salicylates mg/dL Low 6-29 [facility] Comment on above: Performed By: #### 2 [id number], [id number], [id number], [id number], [id number], [id number] ####[facility] [address] [place] [address] U BetaHcg Qualon 08-07-2017 CHORIOGONADOTROPIN. BETA SUBUNIT:SCNC:PT:URI NE:QN: Negative Normal [facility] Comment on above: Performed By: #### 2 [id number] ####[facility] [address] [place] [address] U Drug Screenon 08-07-2017 AMPHETAMINES:PRTHR: PT:URINE:ORD:SCREEN >1000 NG/ML Negative Normal Negative [facility] Comment on above: Result Comment: Nega tive Cutoff: <1000 ng/mL Performed By: #### 2 [id number] ####[facility] [address] [place] [address] OPIATES:PRTHR:PT:UR INE:ORD:SCREEN Negative Normal Negative [facility] Comment on above: Result Comment: Nega tive Cutoff: <300 ng/mL Performed By: #### 2 [id number] ####[facility] [address] [place] [address] PHENCYCLIDINE:PRTHR :PT:URINE:ORD:SCREE N>25 NG/ML Negative Normal Negative [facility] Comment on above: Result Comment: Nega tive Cutoff: <25 ng/mLThese drug screen results are to be used for medical (i.e., treatment) purposes only. Unconfirmed drug screening results must not be used for non-medical purposes (e.g., employment testing, legal testing). Performed By: #### 2 [id number] ####[address] [address] TETRAHYDROCANNABINO L:PRTHR:PT:URINE:OR D:SCREEN>50 NG/ML Negative Normal Negative [facility] Comment on above: Result Comment: Nega tive Cutoff: <50 ng/mL Performed By: #### 2 [id number] ####[facility] [address] [place] [address] Urine, barbiturates presence Negative Normal Negative [facility] Comment on above: Result Comment: Nega tive Cutoff: <200 ng/mL Performed By: #### 2 [id number] ####[facility] [address] [place] [address] Urine, benzodiazepines presence Negative Normal Negative [facility] Comment on above: Result Comment: Nega tive Cutoff: <200 ng/mL Performed By: #### 2 [id number] ####[facility] [address] [place] [address] Urine, cocaine presence Negative Normal Negative [facility] Comment on above: Result Comment: Nega tive Cutoff: <300 ng/mL Performed By: #### 2 [id number] ####[facility] [address] [place] [address] eGFRon 08-07-2017 eGFR (black) mL/min/{1.73_m2} Normal >=59 [facility] Comment on above: Order Comment: Order added by Discern Expert. Result Comment: eGFR is race adjusted. AA=. Performed By: #### 2 [id number], [id number], [id number], [id number], [id number], [id number] ####[facility] [address] [place] [address] eGFR (non-black) mL/min/{1.73_m2} Normal >=59 [facility] Comment on above: Order Comment: Order added by Discern Expert. Result Comment: Organic Extractions Technician jorge kidney disease could be indicated at eGFR's of less than 60 mL/min/1.73m2. Kidney failure is indicated at less than 15 mL/min/1.73m2. Performed By: #### 2 [id number], [id number], [id number], [id number], [id number], [id number] ####[facility] [address] [place] [address] ED Clinical Summaryon 2016 ED Clinical Summary (Inserted Image. Silvia ble to display) [address] [address] ED Clinical SummaryPerson Information Name: CRIS MAGANA/Eitan Age: 17 Years : 2000 12:00 AM Sex: Female Language:Italian PCP: Barbara Mcknight MD Marital Status:Single Visit Id: Visit Reason:General medical; Neck pain; Fall; FALL Speciality: Acuity: 3 Enc Type: Emergency Med Service: Emergency Arrival:08/06/2017 1:37 PM Discharge: 08/06/2017 2:49 PM LOS: 000 01:12 Checkin:08/06/2017 1:37 PM Checkout: 08/06/2017 2:49 PM Dispo Type: Home (Routine DC) EVENTS:Event Name Event Status Request Date/Time Start Date/Time Complete Date/Time Arrive Complete 08/06/2017 1:37 PM 08/06/2017 1:37 PM 08/06/2017 1:37 PM Document Home Meds Request 08/06/2017 1:37 PM Triage Complete 08/06/2017 1:37 PM 08/06/2017 1:47 PM 08/06/2017 1:47 PM Bed Assign Complete 08/06/2017 1:37 PM 08/06/2017 1:37 PM 08/06/2017 1:[address] Exam Complete 08/06/2017 1:37 PM 08/06/2017 1:41 PM 08/06/2017 1:41 PM RN Exam Complete 08/06/2017 1:37 PM 08/06/2017 1:52 PM 08/06/2017 1:52 PM Registration Complete 08/06/2017 1:41 PM 08/06/2017 1:58 PM 08/06/2017 1:58 PM X-Ray Complete 08/06/2017 1:48 PM 08/06/2017 1:52 PM 08/06/2017 2:21 PM Reg Complete Request 08/06/2017 1:58 PM Reg Bed Request Complete 08/06/2017 1:58 PM 08/06/2017 1:58 PM 08/06/2017 1:58 PM Wet Read Complete 08/06/2017 2:21 PM 08/06/2017 2:28 PM 08/06/2017 2:28 PM Discharge Complete 08/06/2017 2:36 PM 08/06/2017 2:50 PM 08/06/2017 2:50 PM Transfer Complete 08/06/2017 2:50 PM 08/06/2017 2:50 PM 08/06/2017 2:50 PM ADDRESS:[address] [place] [id number] [facility] NOTES: Patient: CRIS MAGANA Age: 17 years Sex: Female : 2000 Associated Diagnoses: None Author: Damon Flower DO Basic Information Time seen: Date & time 08/06/17 13:40:00. History source: Patient, EMS, Nursing notes. Arrival mode: Ambulance. History limitation: None. Additional information: Chief Complaint from Nursing Triage Note : Chief Complaint 08/06/2017 13:43 EST Chief Complaint Pt arrives via ambulance with CO of . History of Present Illness 17 female presents to the emergency department by EMS after fall. The patient complains of pain all over her entire body. When she does finally cooperate and I try to pin down her highest level of pain she says it's her neck. She was fully immobilized by EMS prior to arrival. The patient is well known to the emergency department. She denies any chest pain but does complain of pain throughout her abdomen arms legs had neck and basally all over. She points to an abrasion on her left knee is her second greatest source of pain but she demonstrates an abrasion that's been there for several days. From what I can gather the patient fell somewhere outside walked into the recreation center at this time and then called EMS and was immobilized at the scene. The patient denies any significant past medical history. She states there is the possibility of last menses were in March. Review of Systems Unless otherwise stated in this report the patient's positive and negative responses for review of systems for constitutional, eyes, ENT, cardiovascular, respiratory, gastrointestinal, neurological, genitourinary, musculoskeletal, and integument systems and related systems to the presenting problem are either as stated in the HPI or were not pertinent or were negative for the symptoms and/or complaints related to the presenting medical problem. Health Status Allergies: Allergic Reactions (Selected)Severity Not DocumentedBee Stings- Sob.. Medications: (Selected) Documented MedicationsDocumentedcitalopr am 20 mg Tab: 20 mg = 1 tab(s), Oral, Daily, Refills(s) 0risperidone 1 mg oral tablet: Refills(s) 0. Past Medical/ Family/ Social History Medical history: ResolvedDiabetes ([id number]): Resolved.Suicidal plans ([id number]): Resolved.Homicidal thoughts ([id number]): Resolved.. Surgical history: None ([id number]).. Family history: No family history items have been selected or recorded.. Social history: Social & Psychosocial HabitsAlcohol Comment: rich. - 06/10/2017 18:11 - Kathy Vasquez RN N001/20/2017 Risk Assessment: Denies Alcohol Use07/02/2017 Frequency: DailySubstance Abuse Comment: denies. - 06/10/2017 18:11 - Kathy Vasquez RN N001/20/2017 Risk Assessment: Denies Substance AbuseTobacco Comment: smokes 2 ppd. - 06/10/2017 18:11 - Kathy Vasquez RN N001/20/2017 Risk Assessment: Denies Tobacco Use07/24/2017 Use: Current Every Day Smoker Type: Cigarettes Comment: Smoke 2 cigarettes a day - 07/24/2017 14:38 - Franny Valverde RN. Problem list: Active Problems (1)Smoker . Physical Examination Vital Signs Vital Signs 08/06/2017 13:43 EST Temperature Oral 36.3 DegC Peripheral Pulse Rate 71 bpm Respiratory Rate 20 br/min Systolic Blood Pressure 132 mmHg Diastolic Blood Pressure 92 mmHg HI SpO2 98 % . Measurements 08/06/2017 13:43 EST Height/Length Measured 165 cm Body Mass Index Measured 46.83 kg/m2 Weight Measured 127.5 kg BMI Percentile 99.13 . Basic Oxygen Information 08/06/2017 13:43 EST SpO2 98 % Oxygen Therapy Room air . Vital signs have been reviewed and the patient is not hypoxic.. General: Alert, no acute distress, The patient is on c-collar and backboard prior to arrival by EMS. Skin: Warm, dry, pink, intact, no rash. Head: Normocephalic, atraumatic. Neck: Supple, trachea midline, no tenderness, no JVD, No tenderness to palpation no step-off no crepitance appreciated, C-collar noted, Diffuse tenderness to palpation throughout the cervical spine no focal findings. Eye: Pupils are equal, round and reactive to light, extraocular movements are intact, normal conjunctiva. Ears, nose, mouth and throat: Oral mucosa moist, No coreas sign or raccoon eyes, No obvious dental injury. Cardiovascular: Regular rate and rhythm, No murmur, Normal peripheral perfusion, No edema, No rubs., No cardiac rub, Respiratory: Lungs are clear to auscultation, breath sounds are equal, Symmetrical chest wall expansion, Respirations: Regular, Retractions: None. Chest wall: No tenderness, No deformity. Back: Nontender, Normal range of motion, Normal alignment, no step-offs. Musculoskeletal: Normal ROM, normal strength, no tenderness, no swelling, no deformity, The patient complains of pain all over which limits my exam but I don't find any focal bony tenderness to palpation no evidence of deformity. There is an abrasion to the anterior portion of the left knee which appears to be a couple of days old.. Gastrointestinal: Soft, Nontender, Non distended, No organomegaly, Guarding: Negative, Rebound: Negative, Mass: Negative. Neurological: No focal neurological deficit observed, normal sensory observed, normal motor observed, normal speech observed, cranial nerves grossly intact bilaterally. Psychiatric Medical Decision Making Orders Launch Order Profile (Selected) Inpatient OrdersOrdered (Exam Ordered)XR Spine Cervical 2 or 3 Views: 08/06/17 13:48:00 EST, Stat, Transport Mode: Cart, Reason: Trauma, No, pp_set_radiology_subspecialty , Emergency. Radiology results: 08/06/2017 14:35; Ching DO, Damon; Negative; No fracture, subluxation or other acute abnormality. Notes: X-rays reveal no acute fracture. C-spine is cleared clinically and radiographically. The patient now denies that she fell she states that she came to the emergency department because she was angry at her grandmother she has no complaints whatsoever at this time she is discharged back to the long-term . Reexamination/ Reevaluation Vital signs Basic Oxygen Information 08/06/2017 13:43 EST SpO2 98 % Oxygen Therapy Room air Impression and Plan Diagnosis Mood disorder ([id number] [id number], Discharge, Emergency medicine, Medical) Plan Condition: Improved, Stable. Disposition: Discharged: to home. Patient was given the following educational materials: Depression, Adult, Depression, Adult. Follow up with: Barbara Mcknight In 3 days 08/09/2017. Counseled: Patient, Family, Friend, Regarding diagnosis, Regarding diagnostic results, Regarding treatment plan, Regarding prescription, Patient indicated understanding of instructions. Notes: Return to the ER if condition changes or worsens or if you have any other concerns. Otherwise see your family doctor for follow up.. MEDICAL INFORMATION: Prescriptions Given:PATIENT EDUCATION INFORMATION: Instructions:Depression, Adult Follow up:With: Address: When: Barbara Mcknight [address] [place] [address] [address] [place] [id number] Business (1) In 3 days DIAGNOSIS:Mood disorder Normal [facility] ED Note-Nursingon 08-06-2017 ED Note-Nursing Patient ambulates ou t of ER with family/caregiver without difficutly, denies needs. Normal [facility] ED Note-Physicianon 08-06-20 ED Note-Physician Patient: PEPE MAGANA Age: 17 years Sex: Female : 2000 Associated Diagnoses: None Author: Damon Flower DO Basic Information Time seen: Date & time 08/06/17 13:40:00. History source: Patient, EMS, Nursing notes. Arrival mode: Ambulance. History limitation: None. Additional information: Chief Complaint from Nursing Triage Note : Chief Complaint 08/06/2017 13:43 EST Chief Complaint Pt arrives via ambulance with CO of . History of Present Illness 17 female presents to the emergency department by EMS after fall. The patient complains of pain all over her entire body. When she does finally cooperate and I try to pin down her highest level of pain she says it's her neck. She was fully immobilized by EMS prior to arrival. The patient is well known to the emergency department. She denies any chest pain but does complain of pain throughout her abdomen arms legs had neck and basally all over. She points to an abrasion on her left knee is her second greatest source of pain but she demonstrates an abrasion that's been there for several days. From what I can gather the patient fell somewhere outside walked into the recreation center at this time and then called EMS and was immobilized at the scene. The patient denies any significant past medical history. She states there is the possibility of last menses were in March. Review of Systems Unless otherwise stated in this report the patient's positive and negative responses for review of systems for constitutional, eyes, ENT, cardiovascular, respiratory, gastrointestinal, neurological, genitourinary, musculoskeletal, and integument systems and related systems to the presenting problem are either as stated in the HPI or were not pertinent or were negative for the symptoms and/or complaints related to the presenting medical problem. Health Status Allergies: Allergic Reactions (Selected)Severity Not DocumentedBee Stings- Sob.. Medications: (Selected) Documented MedicationsDocumentedcitalopr am 20 mg Tab: 20 mg = 1 tab(s), Oral, Daily, Refills(s) 0risperidone 1 mg oral tablet: Refills(s) 0. Past Medical/ Family/ Social History Medical history: ResolvedDiabetes ([id number]): Resolved.Suicidal plans ([id number]): Resolved.Homicidal thoughts ([id number]): Resolved.. Surgical history: None ([id number]).. Family history: No family history items have been selected or recorded.. Social history: Social & Psychosocial HabitsAlcohol Comment: rich. - 06/10/2017 18:11 - Kathy Vasquez RN01/20/2017 Risk Assessment: Denies Alcohol Use07/02/2017 Frequency: DailySubstance Abuse Comment: rich. - 06/10/2017 18:11 - Kathy Vasquez RN01/20/2017 Risk Assessment: Denies Substance AbuseTobacco Comment: smokes 2 ppd. - 06/10/2017 18:11 - Kathy Vasquez RN N001/20/2017 Risk Assessment: Denies Tobacco Use07/24/2017 Use: Current Every Day Smoker Type: Cigarettes Comment: Smoke 2 cigarettes a day - 07/24/2017 14:38 - Franny Valverde RN. Problem list: Active Problems (1)Smoker . Physical Examination Vital Signs Vital Signs 08/06/2017 13:43 EST Temperature Oral 36.3 DegC Peripheral Pulse Rate 71 bpm Respiratory Rate 20 br/min Systolic Blood Pressure 132 mmHg Diastolic Blood Pressure 92 mmHg HI SpO2 98 % . Measurements 08/06/2017 13:43 EST Height/Length Measured 165 cm Body Mass Index Measured 46.83 kg/m2 Weight Measured 127.5 kg BMI Percentile 99.13 . Basic Oxygen Information 08/06/2017 13:43 EST SpO2 98 % Oxygen Therapy Room air . Vital signs have been reviewed and the patient is not hypoxic.. General: Alert, no acute distress, The patient is on c-collar and backboard prior to arrival by EMS. Skin: Warm, dry, pink, intact, no rash. Head: Normocephalic, atraumatic. Neck: Supple, trachea midline, no tenderness, no JVD, No tenderness to palpation no step-off no crepitance appreciated, C-collar noted, Diffuse tenderness to palpation throughout the cervical spine no focal findings. Eye: Pupils are equal, round and reactive to light, extraocular movements are intact, normal conjunctiva. Ears, nose, mouth and throat: Oral mucosa moist, No coreas sign or raccoon eyes, No obvious dental injury. Cardiovascular: Regular rate and rhythm, No murmur, Normal peripheral perfusion, No edema, No rubs., No cardiac rub, Respiratory: Lungs are clear to auscultation, breath sounds are equal, Symmetrical chest wall expansion, Respirations: Regular, Retractions: None. Chest wall: No tenderness, No deformity. Back: Nontender, Normal range of motion, Normal alignment, no step-offs. Musculoskeletal: Normal ROM, normal strength, no tenderness, no swelling, no deformity, The patient complains of pain all over which limits my exam but I don't find any focal bony tenderness to palpation no evidence of deformity. There is an abrasion to the anterior portion of the left knee which appears to be a couple of days old.. Gastrointestinal: Soft, Nontender, Non distended, No organomegaly, Guarding: Negative, Rebound: Negative, Mass: Negative. Neurological: No focal neurological deficit observed, normal sensory observed, normal motor observed, normal speech observed, cranial nerves grossly intact bilaterally. Psychiatric Medical Decision Making Orders Launch Order Profile (Selected) Inpatient OrdersOrdered (Exam Ordered)XR Spine Cervical 2 or 3 Views: 08/06/17 13:48:00 EST, Stat, Transport Mode: Cart, Reason: Trauma, No, pp_set_radiology_subspecialty , Emergency. Radiology results: 08/06/2017 14:35; Damon Flower DO; Negative; No fracture, subluxation or other acute abnormality. Notes: X-rays reveal no acute fracture. C-spine is cleared clinically and radiographically. The patient now denies that she fell she states that she came to the emergency department because she was angry at her grandmother she has no complaints whatsoever at this time she is discharged back to the long-term . Reexamination/ Reevaluation Vital signs Basic Oxygen Information 08/06/2017 13:43 EST SpO2 98 % Oxygen Therapy Room air Impression and Plan Diagnosis Mood disorder ([id number] F39, Discharge, Emergency medicine, Medical) Plan Condition: Improved, Stable. Disposition: Discharged: to home. Patient was given the following educational materials: Depression, Adult, Depression, Adult. Follow up with: Barbara Mcknight In 3 days 08/09/2017. Counseled: Patient, Family, Friend, Regarding diagnosis, Regarding diagnostic results, Regarding treatment plan, Regarding prescription, Patient indicated understanding of instructions. Notes: Return to the ER if condition changes or worsens or if you have any other concerns. Otherwise see your family doctor for follow up.. Amber [facility] Comment on above: Result Comment: Agnes loja Signed By: Damon Flower DO\.rafael\Date and Time Signed: 08/06/17 14:36 EST ED Patient Education Noteon 08-06-2017 ED Patient Education Note Patient Education Materials Follows:MedicineDepressionDep ression refers to feeling sad, low, down in the dumps, blue, gloomy, or empty. In general, there are two kinds of depression:1. Normal sadness or normal grief. This kind of depression is one that we all feel from time to time after upsetting life experiences, such as the loss of a job or the ending of a relationship. This kind of depression is considered normal, is short lived, and resolves within a few days to 2 weeks. Depression experienced after the loss of a loved one (bereavement) often lasts longer than 2 weeks but normally gets better with time.2. Clinical depression. This kind of depression lasts longer than normal sadness or normal grief or interferes with your ability to function at home, at work, and in school. It also interferes with your personal relationships. It affects almost every aspect of your life. Clinical depression is an illness. Symptoms of depression can also be caused by conditions other than those mentioned above, such as:? Physical illness. Some physical illnesses, including underactive thyroid gland (hypothyroidism), severe anemia, specific types of cancer, diabetes, uncontrolled seizures, heart and lung problems, strokes, and chronic pain are commonly associated with symptoms of depression.? Side effects of some prescription medicine. In some people, certain types of medicine can cause symptoms of depression.? Substance abuse. Abuse of alcohol and illicit drugs can cause symptoms of depression.SYMPTOMSSymptoms of normal sadness and normal grief include the following:? Feeling sad or crying for short periods of time.? Not caring about anything (apathy).? Difficulty sleeping or sleeping too much.? No longer able to enjoy the things you used to enjoy.? Desire to be by oneself all the time (social isolation).? Lack of energy or motivation. ? Difficulty concentrating or remembering.? Change in appetite or weight. ? Restlessness or agitation.Symptoms of clinical depression include the same symptoms of normal sadness or normal grief and also the following symptoms:? Feeling sad or crying all the time.? Feelings of guilt or worthlessness.? Feelings of hopelessness or helplessness.? Thoughts of suicide or the desire to harm yourself (suicidal ideation).? Loss of touch with reality (psychotic symptoms). Seeing or hearing things that are not real (hallucinations) or having false beliefs about your life or the people around you (delusions and paranoia).DIAGNOSISThe diagnosis of clinical depression is usually based on how bad the symptoms are and how long they have lasted. Your health care provider will also ask you questions about your medical history and substance use to find out if physical illness, use of prescription medicine, or substance abuse is causing your depression. Your health care provider may also order blood tests.TREATMENTOften, normal sadness and normal grief do not require treatment. However, sometimes antidepressant medicine is given for bereavement to ease the depressive symptoms until they resolve.The treatment for clinical depression depends on how bad the symptoms are but often includes antidepressant medicine, counseling with a mental health professional, or both. Your health care provider will help to determine what treatment is best for you.Depression caused by physical illness usually goes away with appropriate medical treatment of the illness. If prescription medicine is causing depression, talk with your health care provider about stopping the medicine, decreasing the dose, or changing to another medicine.Depression caused by the abuse of alcohol or illicit drugs goes away when you stop using these substances. Some adults need professional help in order to stop drinking or using drugs.SEEK IMMEDIATE MEDICAL CARE IF:? You have thoughts about hurting yourself or others.? You lose touch with reality (have psychotic symptoms).? You are taking medicine for depression and have a serious side effect.FOR MORE INFORMATION? National Amer[place] on Mental Illness: www.orlin.org?? National [place] of Mental Health: www.nimh.nih.gov? Document Released: 09/14/2001 Document Revised: 02/01/2015 Document Reviewed: 12/16/2012ExitCare? Patient Information ?2015 [employer]. This information is not intended to replace advice given to you by your health care provider. Make sure you discuss any questions you have with your health care provider. Normal [facility] ED Patient Summaryon 017 ED Patient Summary (Inserted Image. Silvia ble to display) [address] [address] Patient Discharge Instructions Person Information Name: CRIS MAGANA Age: 17 Years Date: 08/06/2017 1:37 PMDischarge Diagnosis: Mood disorder Primary Care Physician: Juan Luis MEDINA, Barbara Jean Provider InformationPrimary Provider: Aroldo Flower DO Tare Worker:None The exam and treatment you received in the Emergency Department were for an urgent problem and are not intended as complete care. It is important that you follow up with a doctor, nurse practitioner, or physician?s housing assistant property manager for ongoing care. If your symptoms become worse or you do not improve as expected and you are unable to reach your usual health care provider, you should return to the Emergency Department. We are available 24 hours a day. CRIS MAGANA has been given the following list of patient education materials, prescriptions and follow-up instructions: Follow-up Instructions:With: Address: When: Barbara Mcknight [address] [place] [address] [address], [place] [address] Business (1) In 3 days In the event that this physician does not participate in your insurance network, please consult with your insurance company to find a nearby participating provider. Patient Education Materials:Depression, Adult Medications Given:Medication Dose Route No medications found. Medication Information:Medications to Continue with No ChangesOther Medicationscitalopram (citalopram 20 mg Tab) 1 Tabs By Mouth every day.risperidone (risperidone 1 mg oral tablet) Comment: Pharmacy Information: [facility] Thank you for choosing [facility] Patient Education Materials: DepressionDepression refers to feeling sad, low, down in the dumps, blue, gloomy, or empty. In general, there are two kinds of depression:1. Normal sadness or normal grief. This kind of depression is one that we all feel from time to time after upsetting life experiences, such as the loss of a job or the ending of a relationship. This kind of depression is considered normal, is short lived, and resolves within a few days to 2 weeks. Depression experienced after the loss of a loved one (bereavement) often lasts longer than 2 weeks but normally gets better with time.2. Clinical depression. This kind of depression lasts longer than normal sadness or normal grief or interferes with your ability to function at home, at work, and in school. It also interferes with your personal relationships. It affects almost every aspect of your life. Clinical depression is an illness. Symptoms of depression can also be caused by conditions other than those mentioned above, such as:? Physical illness. Some physical illnesses, including underactive thyroid gland (hypothyroidism), severe anemia, specific types of cancer, diabetes, uncontrolled seizures, heart and lung problems, strokes, and chronic pain are commonly associated with symptoms of depression.? Side effects of some prescription medicine. In some people, certain types of medicine can cause symptoms of depression.? Substance abuse. Abuse of alcohol and illicit drugs can cause symptoms of depression.SYMPTOMSSymptoms of normal sadness and normal grief include the following:? Feeling sad or crying for short periods of time.? Not caring about anything (apathy).? Difficulty sleeping or sleeping too much.? No longer able to enjoy the things you used to enjoy.? Desire to be by oneself all the time (social isolation).? Lack of energy or motivation. ? Difficulty concentrating or remembering.? Change in appetite or weight. ? Restlessness or agitation.Symptoms of clinical depression include the same symptoms of normal sadness or normal grief and also the following symptoms:? Feeling sad or crying all the time.? Feelings of guilt or worthlessness.? Feelings of hopelessness or helplessness.? Thoughts of suicide or the desire to harm yourself (suicidal ideation).? Loss of touch with reality (psychotic symptoms). Seeing or hearing things that are not real (hallucinations) or having false beliefs about your life or the people around you (delusions and paranoia).DIAGNOSISThe diagnosis of clinical depression is usually based on how bad the symptoms are and how long they have lasted. Your health care provider will also ask you questions about your medical history and substance use to find out if physical illness, use of prescription medicine, or substance abuse is causing your depression. Your health care provider may also order blood tests.TREATMENTOften, normal sadness and normal grief do not require treatment. However, sometimes antidepressant medicine is given for bereavement to ease the depressive symptoms until they resolve.The treatment for clinical depression depends on how bad the symptoms are but often includes antidepressant medicine, counseling with a mental health professional, or both. Your health care provider will help to determine what treatment is best for you.Depression caused by physical illness usually goes away with appropriate medical treatment of the illness. If prescription medicine is causing depression, talk with your health care provider about stopping the medicine, decreasing the dose, or changing to another medicine.Depression caused by the abuse of alcohol or illicit drugs goes away when you stop using these substances. Some adults need professional help in order to stop drinking or using drugs.SEEK IMMEDIATE MEDICAL CARE IF:? You have thoughts about hurting yourself or others.? You lose touch with reality (have psychotic symptoms).? You are taking medicine for depression and have a serious side effect.FOR MORE INFORMATION? National Amery on Mental Illness: www.orlin.org?? National [place] of Mental Health: www.nimh.nih.gov? Document Released: 09/14/2001 Document Revised: 02/01/2015 Document Reviewed: 12/16/2012ExitCare? Patient Information ?2015 [employer]. This information is not intended to replace advice given to you by your health care provider. Make sure you discuss any questions you have with your health care provider.MATT German ANGELINA M , have received the following patient education materials/instructions and have verbalized understanding: Patient Education Materials: Depression, Adult Follow-up Instructions: With: Address: When: Barbara Mcknight [address] [place], [place] [address] [address] [place] [address] Business (1) In 3 days Prescriptions: Patient Signature Date Clinician/Nurse Signature Date 08/06/17 14:50:03 [facility] Pre-Arrival Noteon 7 Pre-Arrival Note Pre-Arrival SummaryN valeria: 17 Female, Fall + LOC, Current Date: 08/06/2017 13:38:07 ESTGender: Date of : Age: Pre-Arrival Type: EMSETA: 08/06/2017 13:56:00 ESTPrimary Care Physician: Presenting Problem: LOCPre-Arrival User: Sathish Salvador RN Source: Location: PACompletion Date/Time: 08/06/17 13:27:00[facility] Emergency Department Pre-Hospital Report Form Vital Signs: Pre-Hospital Report:LOC fall, fully immobilized Treatment in Route: Response to Treatment: Misc. Issues: Normal [facility] XR Spine Cervical 2 or 3 Vie wson 08-06-2017 XR Spine Cervical 2 or 3 Views Exam Date/Time:08/06/2017 14:21 ESTReason for Exam:TraumaReportIMPRESSION: NEGATIVE CERVICAL SPINE.CLINICAL HISTORY: Trauma. Generalized neck pain.COMPARISON: None.FINDINGS: AP and lateral views consisting of 4 films obtained. Vertebral bodies arenormal in height and normal in alignment. The odontoid process is intact and normalin position. Posterior elements intact.Soft tissues unremarkable. FINAL REPORT Dictated: 08/06/2017 3:13 pm Bc Trujillo MD. Signed (Electronic Signature): 08/06/2017 3:13 pm Signed by: Bc Trujillo MD Transcribed by: DENIA Technologist: LIZET [facility] Coding Summary.on 07-31-2017 Coding Summary. CODING DATE: 017 FINAL [facility] DSC STATUS: Home (Routine DC) PAYOR: Medicaid EAPG DESCRIPTION 0410 URINALYSIS 0401 LEVEL II CHEMISTRY TESTS 0413 CARDIOGRAM 0457 VENIPUNCTURE 0408 LEVEL I HEMATOLOGY TESTS 0405 THERAPEUTIC DRUG MONITORING 0403 ORGAN OR DISEASE ORIENTED PANELS 0400 LEVEL I CHEMISTRY TESTS 0821 MAJOR DEPRESSIVE DIAGNOSES & OTHER/UNSPECIFIED PSYCHOSES ADMIT DX: REASON FOR VISIT DX: R45.850 Homicidal ideations R45.851 Suicidal ideations FINAL DX: PRINCIPAL: F32.9 Major depressive disorder, single episode, unspecified SECONDARY: F91.9 Conduct disorder, unspecified F17.210 Nicotine dependence, cigarettes, uncomplicated 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 However, the narrative phrase printed from the coding software may appear abbreviated, or result in slightly different terminology. Revised Coded By: Clarice Moeller Revised Date Saved: 07/31/2017 11:14 am [facility] ED Clinical Summaryon 2016 ED Clinical Summary (Inserted Image. Silvia ble to display) [place] [address] ED Clinical SummaryPerson Information Name: CRIS MAGANA/[place] Age: 17 Years : 2000 12:00 AM Sex: Female Language:Italian PCP: Barbara Mcknight MD Marital Status:Single Visit Id: Visit Reason:Suicidal ideation; Homicidal ideation; Suicidal thoughts; SUICIDAL Speciality: Acuity: 3 Enc Type: Emergency Med Service: Emergency Arrival:07/29/2017 6:10 PM Discharge: 07/30/2017 9:04 AM LOS: 000 14:54 Checkin:07/29/2017 6:10 PM Checkout: 07/30/2017 9:04 AM Dispo Type: Home (Routine DC) EVENTS:Event Name Event Status Request Date/Time Start Date/Time Complete Date/Time Arrive Complete 07/29/2017 6:10 PM 07/29/2017 6:10 PM 07/29/2017 6:10 PM Document Home Meds Complete 07/29/2017 6:10 PM 07/29/2017 6:19 PM 07/29/2017 6:19 PM Triage Complete 07/29/2017 6:10 PM 07/29/2017 6:14 PM 07/29/2017 6:14 PM Bed Assign Complete 07/29/2017 6:11 PM 07/29/2017 6:11 PM 07/29/2017 6:[address] Exam Complete 07/29/2017 6:11 PM 07/29/2017 6:41 PM 07/29/2017 6:41 PM RN Exam Complete 07/29/2017 6:11 PM 07/29/2017 6:19 PM 07/29/2017 6:19 PM Registration Complete 07/29/2017 6:15 PM 07/29/2017 6:15 PM 07/29/2017 6:15 PM Reg Complete Request 07/29/2017 6:15 PM Reg Bed Request Complete 07/29/2017 6:15 PM 07/29/2017 6:15 PM 07/29/2017 6:15 PM Pending Labs Complete 07/29/2017 6:15 PM 07/29/2017 6:44 PM Lab Complete 07/29/2017 6:15 PM 07/29/2017 6:44 PM Urine Collect Complete 07/29/2017 6:15 PM 07/29/2017 6:44 PM Registration Request 07/29/2017 6:41 PM EKG Complete 07/29/2017 6:45 PM 07/29/2017 6:52 PM Meds Admin Cancel 07/29/2017 6:45 PM 07/30/2017 7:25 AM Pending Labs Complete 07/29/2017 6:45 PM 07/29/2017 7:34 PM Lab Complete 07/29/2017 6:45 PM 07/29/2017 7:25 PM Consult Request 07/29/2017 6:45 PM Pending Labs Complete 07/29/2017 7:03 PM 07/29/2017 7:03 PM 07/29/2017 7:25 PM Lab Complete 07/29/2017 7:03 PM 07/29/2017 7:03 PM 07/29/2017 7:25 PM Pending Labs Complete 07/29/2017 7:09 PM 07/29/2017 7:09 PM 07/29/2017 7:09 PM Lab Complete 07/29/2017 7:09 PM 07/29/2017 7:09 PM 07/29/2017 7:09 PM Discharge Complete 07/29/2017 9:11 PM 07/30/2017 9:04 AM 07/30/2017 9:[address] Exam Complete 07/29/2017 11:50 PM 07/29/2017 11:50 PM 07/29/2017 11:50 PM Transfer Complete 07/30/2017 9:04 AM 07/30/2017 9:04 AM 07/30/2017 9:04 AM ADDRESS:[address] [place] [id number] [facility] DOC NOTES: Patient: CRIS MAGANA Age: 17 years Sex: Female : 2000 Associated Diagnoses: None Author: Berta Aguilar DO Basic Information Time seen: Date & time 07/29/17 18:46:00. History source: Patient. Arrival mode: Private vehicle. History limitation: None. Additional information: Chief Complaint from Nursing Triage Note : Chief Complaint 07/29/2017 18:07 EDT Chief Complaint Patient states I'm having suicidal and homicidal thoughts. I want to kill my grandma. Patient states she does have a plan. states I would use a knife. Abrasion to left foot that patient states I did that today with a knife. . History of Present Illness The patient presents with psychiatric problem, suicidal ideation, agitation and This 17-year-old female has been seen repeatedly for the same complaint. Patient states she is having suicidal and homicidal thoughts. Patient states she wants to kill her grandmother. Patient reports that she would use a knife. Patient has had multiple psychiatric admissions and multiple visits to the emergency department.. The onset was chronic. The course/duration of symptoms is constant. Character of symptoms depressed, angry, agitated suicidal thoughts. Self injury: none. There are exacerbating factors including family problems and Chronic psychiatric problems, limited intellectual capability. Prior episodes: chronic and multiple ED visits. Therapy today: none. Associated symptoms: none. Review of Systems Additional review of systems information: Unable to obtain due to: Uncooperative patient, mentally impaired. Health Status Allergies: Allergic Reactions (Selected)Severity Not DocumentedBee Stings- Sob., reviewed by Dr. Aguilar. Medications: (Selected) Inpatient MedicationsOrderedLORazepam 1 mg Tab: 2 mg = 2 tab(s), Tab, Oral, Once, Stop date 07/29/17 18:44:00 EDT, STAT, Start date 07/29/17 18:44:00 EDTSodium Chloride 0.9% IV Lucero 1000 mL 1,000 mL: 1,000 mL, IV, 20 mL/hr, STAT, Start date 07/29/17 18:44:00 EDT, 50 hour(s), Total volume (mL): 1,000Documented MedicationsDocumentedcitalopr am 20 mg Tab: 20 mg = 1 tab(s), Oral, Daily, Refills(s) 0risperidone 1 mg oral tablet: Refills(s) 0, Reviewed by Dr. Aguilar. Past Medical/ Family/ Social History Medical history: ResolvedDiabetes ([id number]): Resolved.Suicidal plans ([id number]): Resolved.Homicidal thoughts ([id number]): Resolved., Reviewed as documented in chart. Surgical history: None ([id number])., Reviewed as documented in chart. Family history: No family history items have been selected or recorded.. Social history: Social & Psychosocial HabitsAlcohol Comment: rich. - 06/10/2017 18:11 - Kathy Vasquez RN N001/20/2017 Risk Assessment: Denies Alcohol Use07/02/2017 Frequency: DailySubstance Abuse Comment: rich. - 06/10/2017 18:11 Kathy Perez RN N001/20/2017 Risk Assessment: Denies Substance AbuseTobacco Comment: smokes 2 ppd. - 06/10/2017 18:Kathy Zhou RN N001/20/2017 Risk Assessment: Denies Tobacco Use07/24/2017 Use: Current Every Day Smoker Type: Cigarettes Comment: Smoke 2 cigarettes a day - 07/24/2017 14:38 - Franny Valverde RN, Reviewed as documented in chart. Problem list: Active Problems (1)Smoker . Physical Examination Vital Signs Vital Signs 07/29/2017 18:07 EDT Temperature Oral 36.6 DegC Peripheral Pulse Rate 100 bpm Respiratory Rate 16 br/min Systolic Blood Pressure 168 mmHg HI Diastolic Blood Pressure 90 mmHg SpO2 95 % . Basic Oxygen Information 07/29/2017 18:07 EDT SpO2 95 % Oxygen Therapy Room air . no hypoxia. General: Alert, no acute distress. Skin: Warm, dry, no pallor. Head: Normocephalic, atraumatic. Neck: Supple, trachea midline, no tenderness, no carotid bruit. Eye: Normal conjunctiva. Ears, nose, mouth and throat: Oral mucosa moist. Cardiovascular: Regular rate and rhythm, No murmur, Normal peripheral perfusion. Respiratory: Lungs are clear to auscultation, respirations are non-labored, breath sounds are equal, Symmetrical chest wall expansion. Gastrointestinal: Soft, Nontender, Non distended, Normal bowel sounds. Musculoskeletal: Normal strength, no tenderness, no swelling, no deformity. Neurological: Alert and oriented to person, place, time, and situation, normal motor observed, normal speech observed, normal coordination observed. Psychiatric: Cooperative, appropriate mood & affect, normal judgment. Additional physical exam information. Medical Decision Making Orders Launch Order Profile (Selected) Inpatient OrdersInProcess (Exam Complete)ECG 12 Lead Adult: 07/29/17 18:44:00 EDT, Stat, Palpitations (785.1), FT - Cardiology, OnceOrderedConsult to Mental Health: 07/29/17 18:45:00 EDT, Suicidal/homicidal, Consult and Co-manageED Cardiac Monitorin07/29/17 18:44:00 EDT, Stat, Stop date 07/29/17 18:44:00 EDTLORazepam 1 mg Tab: 2 mg = 2 tab(s), Tab, Oral, Once, Stop date 07/29/17 18:44:00 EDT, STAT, Start date 07/29/17 18:44:00 EDTSodium Chloride 0.9% IV Lucero 1000 mL 1,000 mL: 1,000 mL, IV, 20 mL/hr, STAT, Start date 07/29/17 18:44:00 EDT, 50 hour(s), Total volume (mL): 1,000CompletedAcetaminophen Level: Blood, Stat collect, 07/29/17 18:44:00 EDT, Stop date 07/29/17 18:45:00 EDT, Lab CollectAspirin Level: Blood, Stat collect, 07/29/17 18:44:00 EDT, Stop date 07/29/17 18:45:00 EDT, Lab CollectAutomated Diff: Blood, Stat collect, Collected, 07/29/17 18:58:00 EDT, Stop date 07/29/17 18:58:00 EDT, Lab CollectBMP: Blood, Stat collect, 07/29/17 18:44:00 EDT, Stop date 07/29/17 18:45:00 EDT, Lab CollectBeta hCG Qual: Blood, Stat collect, 07/29/17 18:44:00 EDT, Stop date 07/29/17 18:45:00 EDT, Lab CollectCBC w/ Auto Diff: Blood, Stat collect, 07/29/17 18:44:00 EDT, Stop date 07/29/17 18:45:00 EDT, Lab CollectETOH Level: Blood, Stat collect, 07/29/17 18:44:00 EDT, Stop date 07/29/17 18:45:00 EDT, Lab CollectHepatic Function Panel: Blood, Stat collect, 07/29/17 18:44:00 EDT, Stop date 07/29/17 18:45:00 EDT, Lab CollectLipase Level: Blood, Stat collect, 07/29/17 18:44:00 EDT, Stop date 07/29/17 18:45:00 EDT, Lab CollectToxicology Drug Screen Urine: Urine, Stat collect, 07/29/17 18:15:00 EDT, Stop date 07/29/17 18:15:00 EDT, Nurse collectUrinalysis with Culture Reflex: Urine, Clean Catch, Stat collect, 07/29/17 18:14:00 EDT, Stop date 07/29/17 18:15:00 EDT, Nurse collecteGFR: Blood, Stat collect, Collected, 07/29/17 18:58:00 EDT, Stop date 07/29/17 18:58:00 EDT, Lab Collect. Electrocardiogram: Time 07/29/17 18:51:00, rate 99, normal sinus rhythm, No ST-T changes, no ectopy, normal TN & QRS intervals. Results review: Lab results : Lab View 07/29/2017 18:58 EDT WBC 11.1 E9/L HI RBC 5.0 E12/L Hgb 14.5 gm/dL Hct 42.3 % MCV 84.9 fL MCH 29.0 pg MCHC 34.2 gm/dL RDW 12.8 % Platelet 255.0 E9/L MPV 7.7 fL Neutro Auto 62.0 % Lymph Auto 31.0 % [place] Auto 5.7 % Eos Auto 0.9 % Basophil Auto 0.4 % Neutro Absolute 6.9 E9/L Lymph Absolute 3.4 E9/L [place] Absolute 0.6 E9/L Eos Absolute 0.1 E9/L Basophil Absolute 0.0 E9/L Glucose Lvl 105 mg/dL BUN 16 mg/dL Creatinine 1.1 mg/dL eGFR >60 mL/min/1.73 m2 eGFR AA >60 mL/min/1.73 m2 BUN/Creat Ratio 14 Sodium Lvl 139 mmol/L Potassium Lvl 3.5 mmol/L Chloride 108 mmol/L CO2 22 mmol/L AGAP 13 mEq/L Calcium Lvl 8.9 mg/dL Alk Phos 77 Int._Unit/L ALT 22 Int._Unit/L AST 19 Int._Unit/L Total Protein 7.5 gm/dL Albumin Lvl 4.0 gm/dL Globulin 3.5 gm/dL A/G Ratio 1.1 Bili Total 0.4 mg/dL Bili Direct <0.1 mg/dL Bili Indirect Unable to Calculate mg/dL Lipase Lvl 36 unit/L Acetaminoph Lvl <10 microgram/mL LOW Salicylate Lvl <4 mg/dL LOW Ethanol Lvl <5 mg/dL Beta hCG Ql Negative 07/29/2017 18:19 EDT U Amph Scr Negative U Daniella Scr Negative U Benzodia Scr Negative U Cannab Scr Negative U Cocaine Scr Negative U Opiate Scr Negative U PCP Scr Negative UA Spec Desc Clean Catch UA Color Yellow UA Clarity Clear UA Spec Grav 1.015 UA pH 6.0 UA Protein Negative UA Glucose Negative UA Ketones Negative UA Bili Negative UA Blood Negative UA Nitrite Negative UA Urobilinogen 0.2 EU/dL UA Leuk Est Negative UA RBC 0-3 /HPF UA Squam Epithelial 3-4 /HPF UA WBC 0-5 /HPF UA Bacteria 1+ /HPF , reviewed by Dr Aguilar. Reexamination/ Reevaluation Vital signs Basic Oxygen Information 07/29/2017 18:07 EDT SpO2 95 % Oxygen Therapy Room air Impression and Plan Diagnosis Depression ([id number] F32.9, Discharge, Emergency medicine, Medical) Manipulative behavior ([id number]-II R46.89, Discharge, Emergency medicine, Medical) Calls-Consults - Mental health, phone call, recommends Patient is contracted for safety with mental health. Patient will be released to her grandmother.. Plan Condition: Unchanged. Disposition: Discharged: to home. Patient was given the following educational materials: Depression, Adult, [id number], Depression, Adult, [id number]. Follow up with: Barbara Mcknight In 3 days 08/01/2017 Call physician if symptoms worsenReturn to ED if symptoms worsen; [facility] [employer] In 3 days 08/01/2017. Counseled: Patient, Family, Regarding diagnosis, Regarding diagnostic results, Regarding treatment plan, Regarding prescription. Addendum by Tray Alexis MD on July 30, 2017 02:24 EDTPatient is evaluated, stable, behavioral health had a lengthy discussion with me about not being suicidal today and say for long-term, grandmother who is power of securities attorney does not wish her to be hospitalized. There is a safety plan in place, we will allow her to stay in the bed until picked up by her long-term MEDICAL INFORMATION: Prescriptions Given:PATIENT EDUCATION INFORMATION: Instructions:Depression, Adult, Mvad-qk-Owhz Follow up:With: Address: When: [employer] In 3 days 08/01/2017 With: Address: When: Barbara Mcknight [address], [place] [address] [facility] ([employer] In 3 days 08/01/2017 Comments: Call physician if symptoms worsen Return to ED if symptoms worsen DIAGNOSIS:Depression; Manipulative behavior [facility] ED Note-Physicianon 07-30-20 ED Note-Physician Patient: PEPE MAGANA Age: 17 years Sex: Female : 2000 Associated Diagnoses: None Author: Berta Aguilar DO Basic Information Time seen: Date & time 07/29/17 18:46:00. History source: Patient. Arrival mode: Private vehicle. History limitation: None. Additional information: Chief Complaint from Nursing Triage Note : Chief Complaint 07/29/2017 18:07 EDT Chief Complaint Patient states I'm having suicidal and homicidal thoughts. I want to kill my grandma. Patient states she does have a plan. states I would use a knife. Abrasion to left foot that patient states I did that today with a knife. . History of Present Illness The patient presents with psychiatric problem, suicidal ideation, agitation and This 17-year-old female has been seen repeatedly for the same complaint. Patient states she is having suicidal and homicidal thoughts. Patient states she wants to kill her grandmother. Patient reports that she would use a knife. Patient has had multiple psychiatric admissions and multiple visits to the emergency department.. The onset was chronic. The course/duration of symptoms is constant. Character of symptoms depressed, angry, agitated suicidal thoughts. Self injury: none. There are exacerbating factors including family problems and Chronic psychiatric problems, limited intellectual capability. Prior episodes: chronic and multiple ED visits. Therapy today: none. Associated symptoms: none. Review of Systems Additional review of systems information: Unable to obtain due to: Uncooperative patient, mentally impaired. Health Status Allergies: Allergic Reactions (Selected)Severity Not DocumentedBee Stings- Sob., reviewed by Dr. Aguilar. Medications: (Selected) Inpatient MedicationsOrderedLORazepam 1 mg Tab: 2 mg = 2 tab(s), Tab, Oral, Once, Stop date 07/29/17 18:44:00 EDT, STAT, Start date 07/29/17 18:44:00 EDTSodium Chloride 0.9% IV Lucero 1000 mL 1,000 mL: 1,000 mL, IV, 20 mL/hr, STAT, Start date 07/29/17 18:44:00 EDT, 50 hour(s), Total volume (mL): 1,000Documented MedicationsDocumentedcitalopr am 20 mg Tab: 20 mg = 1 tab(s), Oral, Daily, Refills(s) 0risperidone 1 mg oral tablet: Refills(s) 0, Reviewed by Dr. Aguilar. Past Medical/ Family/ Social History Medical history: ResolvedDiabetes ([id number]): Resolved.Suicidal plans ([id number]): Resolved.Homicidal thoughts ([id number]): Resolved., Reviewed as documented in chart. Surgical history: None ([id number])., Reviewed as documented in chart. Family history: No family history items have been selected or recorded.. Social history: Social & Psychosocial HabitsAlcohol Comment: rich. - 06/10/2017 18:11 - Kathy Vasquez RN01/20/2017 Risk Assessment: Denies Alcohol Use07/02/2017 Frequency: DailySubstance Abuse Comment: rich. - 06/10/2017 18:11 - Kathy Vasquez RN01/20/2017 Risk Assessment: Denies Substance AbuseTobacco Comment: smokes 2 ppd. - 06/10/2017 18:11 - Kathy Vasquez RN N001/20/2017 Risk Assessment: Denies Tobacco Use07/24/2017 Use: Current Every Day Smoker Type: Cigarettes Comment: Smoke 2 cigarettes a day - 07/24/2017 14:38 - Franny Valverde RN, Reviewed as documented in chart. Problem list: Active Problems (1)Smoker . Physical Examination Vital Signs Vital Signs 07/29/2017 18:07 EDT Temperature Oral 36.6 DegC Peripheral Pulse Rate 100 bpm Respiratory Rate 16 br/min Systolic Blood Pressure 168 mmHg HI Diastolic Blood Pressure 90 mmHg SpO2 95 % . Basic Oxygen Information 07/29/2017 18:07 EDT SpO2 95 % Oxygen Therapy Room air . no hypoxia. General: Alert, no acute distress. Skin: Warm, dry, no pallor. Head: Normocephalic, atraumatic. Neck: Supple, trachea midline, no tenderness, no carotid bruit. Eye: Normal conjunctiva. Ears, nose, mouth and throat: Oral mucosa moist. Cardiovascular: Regular rate and rhythm, No murmur, Normal peripheral perfusion. Respiratory: Lungs are clear to auscultation, respirations are non-labored, breath sounds are equal, Symmetrical chest wall expansion. Gastrointestinal: Soft, Nontender, Non distended, Normal bowel sounds. Musculoskeletal: Normal strength, no tenderness, no swelling, no deformity. Neurological: Alert and oriented to person, place, time, and situation, normal motor observed, normal speech observed, normal coordination observed. Psychiatric: Cooperative, appropriate mood & affect, normal judgment. Additional physical exam information. Medical Decision Making Orders Launch Order Profile (Selected) Inpatient OrdersInProcess (Exam Complete)ECG 12 Lead Adult: 07/29/17 18:44:00 EDT, Stat, Palpitations (785.1), FT - Cardiology, OnceOrderedConsult to Mental Health: 07/29/17 18:45:00 EDT, Suicidal/homicidal, Consult and Co-manageED Cardiac Monitorin07/29/17 18:44:00 EDT, Stat, Stop date 07/29/17 18:44:00 EDTLORazepam 1 mg Tab: 2 mg = 2 tab(s), Tab, Oral, Once, Stop date 07/29/17 18:44:00 EDT, STAT, Start date 07/29/17 18:44:00 EDTSodium Chloride 0.9% IV Lucero 1000 mL 1,000 mL: 1,000 mL, IV, 20 mL/hr, STAT, Start date 07/29/17 18:44:00 EDT, 50 hour(s), Total volume (mL): 1,000CompletedAcetaminophen Level: Blood, Stat collect, 07/29/17 18:44:00 EDT, Stop date 07/29/17 18:45:00 EDT, Lab CollectAspirin Level: Blood, Stat collect, 07/29/17 18:44:00 EDT, Stop date 07/29/17 18:45:00 EDT, Lab CollectAutomated Diff: Blood, Stat collect, Collected, 07/29/17 18:58:00 EDT, Stop date 07/29/17 18:58:00 EDT, Lab CollectBMP: Blood, Stat collect, 07/29/17 18:44:00 EDT, Stop date 07/29/17 18:45:00 EDT, Lab CollectBeta hCG Qual: Blood, Stat collect, 07/29/17 18:44:00 EDT, Stop date 07/29/17 18:45:00 EDT, Lab CollectCBC w/ Auto Diff: Blood, Stat collect, 07/29/17 18:44:00 EDT, Stop date 07/29/17 18:45:00 EDT, Lab CollectETOH Level: Blood, Stat collect, 07/29/17 18:44:00 EDT, Stop date 07/29/17 18:45:00 EDT, Lab CollectHepatic Function Panel: Blood, Stat collect, 07/29/17 18:44:00 EDT, Stop date 07/29/17 18:45:00 EDT, Lab CollectLipase Level: Blood, Stat collect, 07/29/17 18:44:00 EDT, Stop date 07/29/17 18:45:00 EDT, Lab CollectToxicology Drug Screen Urine: Urine, Stat collect, 07/29/17 18:15:00 EDT, Stop date 07/29/17 18:15:00 EDT, Nurse collectUrinalysis with Culture Reflex: Urine, Clean Catch, Stat collect, 07/29/17 18:14:00 EDT, Stop date 07/29/17 18:15:00 EDT, Nurse collecteGFR: Blood, Stat collect, Collected, 07/29/17 18:58:00 EDT, Stop date 07/29/17 18:58:00 EDT, Lab Collect. Electrocardiogram: Time 07/29/17 18:51:00, rate 99, normal sinus rhythm, No ST-T changes, no ectopy, normal TN & QRS intervals. Results review: Lab results : Lab View 07/29/2017 18:58 EDT WBC 11.1 E9/L HI RBC 5.0 E12/L Hgb 14.5 gm/dL Hct 42.3 % MCV 84.9 fL MCH 29.0 pg MCHC 34.2 gm/dL RDW 12.8 % Platelet 255.0 E9/L MPV 7.7 fL Neutro Auto 62.0 % Lymph Auto 31.0 % [place] Auto 5.7 % Eos Auto 0.9 % Basophil Auto 0.4 % Neutro Absolute 6.9 E9/L Lymph Absolute 3.4 E9/L [place] Absolute 0.6 E9/L Eos Absolute 0.1 E9/L Basophil Absolute 0.0 E9/L Glucose Lvl 105 mg/dL BUN 16 mg/dL Creatinine 1.1 mg/dL eGFR >60 mL/min/1.73 m2 eGFR AA >60 mL/min/1.73 m2 BUN/Creat Ratio 14 Sodium Lvl 139 mmol/L Potassium Lvl 3.5 mmol/L Chloride 108 mmol/L CO2 22 mmol/L AGAP 13 mEq/L Calcium Lvl 8.9 mg/dL Alk Phos 77 Int._Unit/L ALT 22 Int._Unit/L AST 19 Int._Unit/L Total Protein 7.5 gm/dL Albumin Lvl 4.0 gm/dL Globulin 3.5 gm/dL A/G Ratio 1.1 Bili Total 0.4 mg/dL Bili Direct <0.1 mg/dL Bili Indirect Unable to Calculate mg/dL Lipase Lvl 36 unit/L Acetaminoph Lvl <10 microgram/mL LOW Salicylate Lvl <4 mg/dL LOW Ethanol Lvl <5 mg/dL Beta hCG Ql Negative 07/29/2017 18:19 EDT U Amph Scr Negative U Daniella Scr Negative U Benzodia Scr Negative U Cannab Scr Negative U Cocaine Scr Negative U Opiate Scr Negative U PCP Scr Negative UA Spec Desc Clean Catch UA Color Yellow UA Clarity Clear UA Spec Grav 1.015 UA pH 6.0 UA Protein Negative UA Glucose Negative UA Ketones Negative UA Bili Negative UA Blood Negative UA Nitrite Negative UA Urobilinogen 0.2 EU/dL UA Leuk Est Negative UA RBC 0-3 /HPF UA Squam Epithelial 3-4 /HPF UA WBC 0-5 /HPF UA Bacteria 1+ /HPF , reviewed by Dr Aguilar. Reexamination/ Reevaluation Vital signs Basic Oxygen Information 07/29/2017 18:07 EDT SpO2 95 % Oxygen Therapy Room air Impression and Plan Diagnosis Depression ([id number] F32.9, Discharge, Emergency medicine, Medical) Manipulative behavior ([id number]-FX R46.89, Discharge, Emergency medicine, Medical) Calls-Consults - Mental health, phone call, recommends Patient is contracted for safety with mental health. Patient will be released to her grandmother.. Plan Condition: Unchanged. Disposition: Discharged: to home. Patient was given the following educational materials: Depression, Adult, Ujoq-zv-Qlmc, Depression, Adult, Yrtp-hm-Tskq. Follow up with: Barbara Mcknight In 3 days 08/01/2017 Call physician if symptoms worsenReturn to ED if symptoms worsen; [facility] In 3 days 08/01/2017. Counseled: Patient, Family, Regarding diagnosis, Regarding diagnostic results, Regarding treatment plan, Regarding prescription.Patient is evaluated, stable, behavioral health had a lengthy discussion with me about not being suicidal today and say for long-term, grandmother who is power of securities attorney does not wish her to be hospitalized. There is a safety plan in place, we will allow her to stay in the bed until picked up by her long-term Normal [facility] Comment on above: Result Comment: Elec tronically Signed By: Vanesa MEDINA, Tray\.br\Date and Time Signed: 07/30/17 02:24 EDT ED Patient Education Noteon 07-30-2017 ED Patient Education Note Patient Education Materials Follows:MedicineDepressionDep ression is feeling sad, low, down in the dumps, blue, gloomy, or empty. In general, there are two kinds of depression: ? Normal sadness or grief. This can happen after something upsetting. It often goes away on its own within 2 weeks. After losing a loved one (bereavement), normal sadness and grief may last longer than two weeks. It usually gets better with time.? Clinical depression. This kind lasts longer than normal sadness or grief. It keeps you from doing the things you normally do in life. It is often hard to function at home, work, or at school. It may affect your relationships with others. Treatment is often needed. GET HELP RIGHT AWAY IF:? You have thoughts about hurting yourself or others.? You lose touch with reality (psychotic symptoms). You may:? See or hear things that are not real.? Have untrue beliefs about your life or people around you.? Your medicine is giving you problems.MAKE SURE YOU:? Understand these instructions.? Will watch your condition.? Will get help right away if you are not doing well or get worse.Document Released: 10/20/2011 Document Revised: 02/01/2015 Document Reviewed: 01/16/2013ExitCare? Patient Information ?2014 [employer]. This information is not intended to replace advice given to you by your health care provider. Make sure you discuss any questions you have with your health care provider. Normal [facility] ED Patient Summaryon 017 ED Patient Summary (Inserted Image. Silvia ble to display) [address] [address] Patient Discharge Instructions Person Information Name: CRIS MAGANA Age: 17 Years Date: 07/29/2017 6:10 PMDischarge Diagnosis: Depression; Manipulative behavior Primary Care Physician: Juan Luis MEDINA, Barbara Jean Provider InformationPrimary Provider: Berta Aguilar DO Tare Worker:None The exam and treatment you received in the Emergency Department were for an urgent problem and are not intended as complete care. It is important that you follow up with a doctor, nurse practitioner, or physician?s housing assistant property manager for ongoing care. If your symptoms become worse or you do not improve as expected and you are unable to reach your usual health care provider, you should return to the Emergency Department. We are available 24 hours a day. CRIS MAGANA has been given the following list of patient education materials, prescriptions and follow-up instructions: Follow-up Instructions:With: Address: When: [facility] In 3 days 08/01/2017 With: Address: When: Barbara Mcknight [address] [place] [address] [facility] () In 3 days 08/01/2017 Comments: Call physician if symptoms worsen Return to ED if symptoms worsen In the event that this physician does not participate in your insurance network, please consult with your insurance company to find a nearby participating provider. Patient Education Materials:Depression, Adult, Gyry-kz-Fouh Medications Given:Medication Dose Route No medications found. Medication Information:Medications to Continue with No ChangesOther Medicationscitalopram (citalopram 20 mg Tab) 1 Tabs By Mouth every day.risperidone (risperidone 1 mg oral tablet) Comment: Pharmacy Information: [facility] Thank you for choosing [facility] Patient Education Materials: DepressionDepression is feeling sad, low, down in the dumps, blue, gloomy, or empty. In general, there are two kinds of depression: ? Normal sadness or grief. This can happen after something upsetting. It often goes away on its own within 2 weeks. After losing a loved one (bereavement), normal sadness and grief may last longer than two weeks. It usually gets better with time.? Clinical depression. This kind lasts longer than normal sadness or grief. It keeps you from doing the things you normally do in life. It is often hard to function at home, work, or at school. It may affect your relationships with others. Treatment is often needed. GET HELP RIGHT AWAY IF:? You have thoughts about hurting yourself or others.? You lose touch with reality (psychotic symptoms). You may:? See or hear things that are not real.? Have untrue beliefs about your life or people around you.? Your medicine is giving you problems.MAKE SURE YOU:? Understand these instructions.? Will watch your condition.? Will get help right away if you are not doing well or get worse.Document Released: 10/20/2011 Document Revised: 02/01/2015 Document Reviewed: 01/16/2013ExitCare? Patient Information ?2014 [employer]. This information is not intended to replace advice given to you by your health care provider. Make sure you discuss any questions you have with your health care provider.MATT German ANGELINA M , have received the following patient education materials/instructions and have verbalized understanding: Patient Education Materials: Depression, Adult, Dwzq-en-Rjuh Follow-up Instructions: With: Address: When: [facility] In 3 days 08/01/2017 With: Address: When: Barbara Mcnkight [address] [place] [address] Business (1) In 3 days 08/01/2017 Comments: Call physician if symptoms worsen Return to ED if symptoms worsen Prescriptions: Patient Signature Date Clinician/Nurse Signature Date 07/30/17 09:04:53 Normal [facility] Progress Note-Nurseon 2016 Progress Note-Nurse safety contract read , understood & signed by long-term staff member & pt was d/c'd to her. Normal [facility] Progress Note-Nurse Nursing assessment c ompleted at this time. Patient states shes having suicidal and homicidal thoughts. States she wants to kill herself and her grandma with a knife. Patient has been seen here multiple times before for the same complaints. This nurse asked if patient has been seeing her couselor. Patient states No, i dont wanna see her. This nurse asked why patient wants to kill her grandma, patient states because she took my phone away from me because I was talking to people im not allowed to talk to so I told her I would kill her. Patient sitting on cart at this time. Belonings kept at nurses station. Patient remains in view of nurses station.Patient resting on cart watching TV.Patient requesting something to eat. Jackson administered. No further needs.Remains within view of nurses.Patient resting on cart watching TV. Denies any needs.Patient resting on cart watching TV. Denies any needs. Call light within reach.Patient resting on cart watching TV. Call light within reach.Patient resting on cart. Patient is speaking on phone right now with [facility].This nurse informed by Sarah Lynn RN that patient has decided she no longer wants to go home with grandma, grandma states if she leaves she isnt coming back. This nurse in to speak with patient. Patient states 'I just dont wanna go with her, shes a bitch. Ill kill her. This nurse out to lobby to find david hernandez unable to be located. [facility] hotline called. Patient will be seen by [facility] in person.Vitals re-assessed at this time. Patient requesting a warm blanket. No further needs. Call light within reach.Patient resting on cart watching TV. Remains within view of nurses station.Patient resting quietly on cart watching TV. Denies any needs. Call light within reach. Normal [facility] Acetamnphn Lvlon 07-29-2017 Acetaminophen mass conc <10 Low 15-30 [facility] Comment on above: Performed By: #### 2 [id number], 6252314, 3424149, 9497233, 0618407, 77534837, 0438444, 7155480, 84711038 ####[facility] [address] [place] [address] Auto Diffon 07-29-2017 Basophils Auto #/vol (Bld) 0.0 E9/L Normal 0.0-0.2 [facility] Comment on above: Order Comment: Order Added by Discern Expert. Performed By: #### 2 640954, 8113245, 0757631, 1989241, 6118685, 14014846, 7625000, 8548591, 29315932 ####[facility] [address] [place] [address] Basophils Auto #/vol (Bld) 0.4 % Normal 0.0-2.0 [facility] Comment on above: Order Comment: Order Added by Discern Expert. Performed By: #### 2 580518, 8032107, 8614697, 9172996, 8143937, 22547762, 3364980, 0665954, 22779902 ####[facility] [address] [place] [address] Eosinophils 0.1 E9/L Normal 0.0-0.5 [facility] Comment on above: Order Comment: Order Added by Discern Expert. Performed By: #### 2 697959, 4368462, 0592639, 4155889, 9909558, 10249468, 2568099, 5958607, 49729613 ####[address] [place] [address] Eosinophils/100 leukocytes 0.9 % Normal 0.0-8.0 [facility] Comment on above: Order Comment: Order Added by Discern Expert. Performed By: #### 2 124708, 1598447, 5373326, 1936708, 2332775, 93777652, 3231508, 9185435, 66512730 ####[address] [place] [address] Lymphocytes 3.4 E9/L Normal 1.0-4.0 [facility] Comment on above: Order Comment: Order Added by Discern Expert. Performed By: #### 2 105558, 2422358, 2703422, 9503356, 5347207, 00229307, 9479811, 1487579, 54137935 ####[address] [place] [address] Lymphocytes/100 leukocytes 31.0 % Normal 14.0-50.0 [facility] Comment on above: Order Comment: Order Added by Discern Expert. Performed By: #### 2 880949, 8517701, 2677920, 2673928, 3654426, 29526314, 2170838, 4550867, 28458586 ####[address] [place] [address] Monocytes 0.6 E9/L Normal 0.2-1.0 [facility] Comment on above: Order Comment: Order Added by Discern Expert. Performed By: #### 2 242909, 5369193, 6610272, 7918566, 2821364, 65141810, 3516309, 0830225, 45616248 ####[address] [place] [address] Monocytes/100 leukocytes 5.7 % Normal 4.0-14.0 [facility] Comment on above: Order Comment: Order Added by Discern Expert. Performed By: #### 2 103269, 3726409, 2004317, 5118607, 8326553, 87338668, 8006545, 2714065, 45351989 ####[facility] [address] [place] [address] Neutrophils 6.9 E9/L Normal 2.0-7.5 [facility] Comment on above: Order Comment: Order Added by Discern Expert. Performed By: #### 2 685759, 9141273, 1789739, 4614960, 8349735, 05844077, 3440933, 8836584, 02980411 ####[address] [place] [address] Neutrophils/100 leukocytes 62.0 % Normal 36.0-75.0 [facility] Comment on above: Order Comment: Order Added by Discern Expert. Performed By: #### 2 556447, 1343214, 2789755, 2169819, 9157930, 96878940, 9623834, 6536943, 48369618 ####[address] [place] [address] B hCG Qualon 07-29-2017 HCG.beta subunit Qn Negative Normal [facility] Comment on above: Performed By: #### 2 846461, 8285882, 7371114, 5011508, 3411907, 59027626, 0217188, 7155566, 48579478 ####[address] [address] BMPon 07-29-2017 BUN/Creatinine Ratio 14 No Units Normal 10-20 [facility] Comment on above: Performed By: #### 2 619551, 6054696, 5846750, 8947219, 2537079, 12325327, 3972122, 2132892, 80445085 ####[facility] [address] [place] [address] Creatinine 1.1 mg/dL Normal 0.5-1.3 [facility] Comment on above: Performed By: #### 2 614250, 9121207, 9426353, 7934487, 9954133, 98691359, 9619695, 8840145, 95245060 ####[facility] [address] [place] [address] Urea nitrogen 16 mg/dL Normal 5-21 [facility] Comment on above: Performed By: #### 2 501039, 1509317, 8162547, 9429888, 5013837, 38127417, 4773405, 8969043, 86233515 ####[facility] [address] [place] [address] Anion gap 13 mmol/L Normal 6-16 [facility] Comment on above: Performed By: #### 2 036976, 5876295, 9675620, 2913879, 2940341, 27624861, 8080901, 2036502, 96796673 ####[facility] [address] [place] [address] Calcium 8.9 mg/dL Normal 8.9-11.1 [facility] Comment on above: Performed By: #### 2 662762, 3854383, 8023641, 5440850, 9645709, 82135477, 4433224, 6605723, 75052414 ####[facility] [address] [place] [address] Chloride 108 mmol/L Normal 101-111 [facility] Comment on above: Performed By: #### 2 546346, 7310209, 4768341, 4885571, 8321113, 72963950, 6922010, 2762364, 10930438 ####[facility] [address] [place] [address] CO2 22 mmol/L Normal 21-31 [facility] Comment on above: Performed By: #### 2 006629, 0524435, 5039709, 2510491, 8661529, 28526631, 4348347, 9756260, 24034464 ####[facility] [address] [place] [address] Glucose mass conc 105 mg/dL Normal 55-199 [facility] [facility] Comment on above: Result Comment: If t his glucose result represents a fasting glucose, interpretation should refer to the following reference range: 55-99 mg/dL Performed By: #### 2 602421, 1285128, 2759436, 3268369, 0617037, 85184592, 0169292, 4435547, 71575330 ####[facility] [address] [place] [address] Potassium molar conc 3.5 mmol/L Normal 3.5-5.3 [facility] Comment on above: Performed By: #### 2 237305, 4485506, 1678371, 4280021, 8472049, 36695529, 3494169, 6281853, 92041831 ####[facility] [address] [place] [address] Sodium 139 mmol/L Normal 135-145 [facility] Comment on above: Performed By: #### 2 645205, 1161879, 9760329, 5737531, 8346788, 75740514, 7776767, 6867045, 44339996 ####[facility] [address] [place] [address] CBC w/ Auto Diffon Erythrocyte distribution width Auto Ratio (RBC) 12.8 % Normal 10.9-14.2 [facility] Comment on above: Performed By: #### 2 165300, 6078425, 8836713, 5363989, 6933667, 31495502, 7630999, 9116736, 58736028 ####[facility] [address] [place] [address] Erythrocytes (RBC) 5.0 E12/L Normal 4.3-5.9 [facility] Comment on above: Performed By: #### 2 745669, 3572120, 3293545, 2291052, 8382075, 07300492, 1948920, 1174472, 53127908 ####[facility] [address] [place] [address] Hematocrit (HCT) 42.3 % Normal 34.0-46.0 [facility] Comment on above: Performed By: #### 2 603479, 9417782, 5375317, 8819578, 9723419, 07374789, 4817674, 4079253, 19990801 ####[place] [address] [place] 8659057 Hemoglobin mass conc (Bld) 14.5 g/dL Normal 12.0-16.0 [facility] Comment on above: Performed By: #### 2 982950, 2176001, 9881760, 3443654, 9644849, 67207555, 1001479, 1970016, 94307758 ####[place] [address]357 MCH 29.0 pg Normal 27.0-34.0 [facility] Comment on above: Performed By: #### 2 500203, 5365656, 9754156, 5115896, 7899543, 71947323, 1668520, 6407690, 57400595 ####[place] [address] MCHC mass conc (RBC) 34.2 g/dL Normal 31.4-39.3 [facility] Comment on above: Performed By: #### 2 477361, 3084248, 2443059, 1683953, 7611424, 84524910, 6524825, 1501152, 06019197 ####[address] [address] MCV 84.9 fL Normal 80.0-100.0 [facility] Comment on above: Performed By: #### 2 201821, 3490759, 6189330, 0406709, 0733642, 03541471, 8857220, 1914222, 13463707 ####[address] [address] Platelet mean volume (PMV) 7.7 fL Normal 6.4-10.8 [facility] Comment on above: Performed By: #### 2 464498, 0780377, 9327741, 6363418, 4749829, 66897330, 0694116, 1336069, 15875200 ####[facility] [address] [place] [address] Platelets 255.0 E9/L Normal 150.0-500. 0 [facility] Comment on above: Performed By: #### 2 199741, 7309443, 2404597, 4190423, 3342890, 32401640, 7388178, 5720410, 64039803 ####[facility] [address] [place] [address] WBC (Leukocytes) 11.1 E9/L High 4.0-11.0 [facility] Comment on above: Performed By: #### 2 128909, 6668800, 9466161, 1249157, 3847299, 73243890, 3080146, 6324620, 14768258 ####[facility] [address] [place] [address] Ethanolon 07-29-2017 Ethanol mg/dL Normal <=7 [facility] Comment on above: Performed By: #### 2 042112 ####[facility] [address] [place] [address] Hep Func Panelon 07-29-2017 Bilirubin (direct) UTC Abnormal 0.0-0.9 [facility] Comment on above: Result Comment: Resu lt verified by Discern Rule. Performed result UTC (Unable to Calculate) was sent as an Alpha code due the inability to calculate a valid numeric value. Performed By: #### 2 396390, 4813990, 3879640, 3832788, 0885446, 13065202, 6450856, 1329760, 75350132 ####[facility] [address] [place] [address] Alanine aminotransferase (ALT) 22 Int._Unit/L Normal 6-46 [facility] Comment on above: Performed By: #### 2 423343, 8698606, 7229635, 3362267, 9372762, 66921409, 0654919, 8425470, 98866276 ####[facility] [address] [place] [address] Albumin 1.1 g/dL Normal 1.1-2.2 [facility] Comment on above: Performed By: #### 2 225346, 6061459, 7810937, 8816243, 4575418, 31508188, 6650607, 6690562, 80595563 ####[facility] [address] [place] [address] Albumin 4.0 g/dL Normal 3.3-5.0 [facility] Comment on above: Performed By: #### 2 268542, 4868788, 7397887, 0775147, 3860830, 63235089, 0897054, 6087926, 31034854 ####[facility] [address] [place] [address] Alkaline phosphatase (ALP) 77 Int._Unit/L Normal 21-98 [facility] Comment on above: Performed By: #### 2 873078, 4521986, 1996381, 7184261, 7791944, 69378242, 2162778, 9591198, 25474715 ####[facility] [address] [place] [address] Aspartate aminotransferase (AST) 19 Int._Unit/L Normal 5-43 [facility] Comment on above: Performed By: #### 2 455146, 6850759, 3479219, 5420590, 0087286, 47440217, 4360624, 5980596, 79324696 ####[facility] [address] [place] [address] Bilirubin (direct) mg/dL Normal 0.1-0.4 [facility] Comment on above: Performed By: #### 2 274664, 0787683, 3871838, 9162685, 6540083, 04289952, 4625932, 5146643, 92257340 ####[facility] [address] [place] [address] Bilirubin (total) 0.4 mg/dL Normal 0.0-1.1 [facility] Comment on above: Performed By: #### 2 505262, 5028560, 1076485, 6542451, 5124789, 64075057, 3649519, 2157970, 58365376 ####[facility] [address] [place] [address] Globulin 3.5 g/dL Normal 1.4-4.0 [facility] Comment on above: Performed By: #### 2 041216, 5995141, 8808360, 3992557, 5656722, 67998634, 4647371, 5793712, 52386232 ####[facility] [address] [place] [address] Protein 7.5 g/dL Normal 6.0-7.8 [facility] Comment on above: Performed By: #### 2 102413, 2651516, 5251571, 8010132, 0561056, 58008227, 8362586, 5215026, 33613306 ####[facility] [address] [place] [address] Lipase Levelon 07-29-2017 Lipase 36 unit/L Normal 13-58 [facility] Comment on above: Performed By: #### 2 114395, 3415414, 5029970, 5925091, 1798082, 35444523, 7983399, 7959634, 62373318 ####[facility] [address] [place] [address] Pre-Arrival Noteon 7 Pre-Arrival Note Pre-Arrival SummaryN valeria: EBEN Current Date: 07/29/2017 18:16:05 EDTGender: Date of : Age: Pre-Arrival Type: EMS[facility]29[facility]2017 [facility]: Presenting Problem: suicidal/homicidalPre-Arrival User: Soo Torre RN [facility]: [facility] 17[facility]55[facility]00[facility] Emergency Department Pre-Hospital Report Form Vital Signs: Pre-Hospital Report: Treatment in Route: Response to Treatment: Misc. Issues: Normal [facility] Progress Note-Nurseon 2016 Progress Note-Nurse Patient: PEPE MAGANA Age: 17 years Sex: Female : 2000 Associated Diagnoses: None Author: Sarah Lynn RN Progress Note Pt resting in room, suicidal precautions in place. Normal [facility] Salicylateon 07-29-2017 Salicylates mg/dL Low 03-29 [facility] Comment on above: Performed By: #### 2 624813, 1531954, 4465420, 1152774, 5273902, 42648713, 5015433, 2191274, 64663531 ####[facility] [address] [place] [id number] U Drug Screenon 07-29-2017 AMPHETAMINES:PRTHR: PT:URINE:ORD:SCREEN >1000 NG/ML Negative Normal Negative [facility] Comment on above: Result Comment: Nega tive Cutoff: <1000 ng/mL Performed By: #### 2 432608 ####[facility] [address] [place] [address] OPIATES:PRTHR:PT:UR INE:ORD:SCREEN Negative Normal Negative [facility] Comment on above: Result Comment: Nega tive Cutoff: <300 ng/mL Performed By: #### 2 468852 ####[facility] [address] [place] [address] PHENCYCLIDINE:PRTHR :PT:URINE:ORD:SCREE N>25 NG/ML Negative Normal Negative [facility] Comment on above: Result Comment: Nega tive Cutoff: <25 ng/mLThese drug screen results are to be used for medical (i.e., treatment) purposes only. Unconfirmed drug screening results must not be used for non-medical purposes (e.g., employment testing, legal testing). Performed By: #### 2 396883 ####[address] [address] TETRAHYDROCANNABINO L:PRTHR:PT:URINE:OR D:SCREEN>50 NG/ML Negative Normal Negative [facility] Comment on above: Result Comment: Nega tive Cutoff: <50 ng/mL Performed By: #### 2 035542 ####[address] [address] Urine, barbiturates presence Negative Normal Negative [facility] Comment on above: Result Comment: Nega tive Cutoff: <200 ng/mL Performed By: #### 2 649165 ####[address] [address] Urine, benzodiazepines presence Negative Normal Negative [facility] Comment on above: Result Comment: Nega tive Cutoff: <200 ng/mL Performed By: #### 2 755656 ####[place] [address] Urine, cocaine presence Negative Normal Negative [facility] Comment on above: Result Comment: Nega tive Cutoff: <300 ng/mL Performed By: #### 2 619834 ####[place] 5839357 UA With Cult Reflexon 2016 BACTERIA:PRTHR:PT:U RINE SED:ORD:MICROSCOPY. LIGHT 1+ /HPF Abnormal Trace [facility] Comment on above: Performed By: #### 1 6871868 ####[place] [address] Bilirubin Ql (U) Negative Normal Negative [facility] Comment on above: Performed By: #### 1 0113591 ####[place] [address] COLOR:TYPE:PT:URINE :NOM:AUTO YELLOW Normal Yellow [facility] Comment on above: Performed By: #### 1 3119270 ####[place] [address]357 Erythrocytes (RBC) 0-3 Normal 0-3 [facility] Comment on above: Performed By: #### 1 1654807 ####[address] [address] GLUCOSE:MCNC:PT:URI NE:QN:TEST STRIP Negative Normal Negative [facility] Comment on above: Performed By: #### 1 1401861 ####[address] [address] KETONES:MCNC:PT:URI NE:QN:TEST STRIP Negative Normal Negative [facility] Comment on above: Performed By: #### 1 8156064 ####[address] [address] LEUKOCYTES:PRTHR:PT :URINE:ORD:AUTOMATE D Negative Normal Negative [facility] Comment on above: Performed By: #### 1 1961533 ####[address] [address] UA Spec Desc Clean Catch Normal [facility] Comment on above: Performed By: #### 1 8904764 ####[address] [address] Urine, clarity CLEAR Normal Clear [facility] Comment on above: Performed By: #### 1 6873208 ####[address] [address] Urine, hemoglobin presence Negative Normal Negative [facility] Comment on above: Performed By: #### 1 7771468 ####[address] [address] Urine, leukocytes in sedmiment 0-5 Normal 0-5 [facility] Comment on above: Performed By: #### 1 3151913 ####[address] [address] Urine, nitrite presence Negative Normal Negative [facility] Comment on above: Performed By: #### 1 2108185 ####[address] [address] Urine, pH 6.0 [pH] Invalid Interpretation Code 5.0-9.0 [facility] Comment on above: Performed By: #### 1 7821929 ####[facility] [address] [place] [address] Urine, protein Negative Normal Negative [facility] Comment on above: Performed By: #### 1 8991784 ####[facility] [address] [place] [address] Urine, specific gravity 1.015 Invalid Interpretation Code 1.005-1.03 0 [facility] Comment on above: Performed By: #### 1 4163043 ####[facility] [address] [place] [address] Urine, squamous cells in sediment 3-4 Normal 0-2 [facility] Comment on above: Performed By: #### 1 4214027 ####[facility] [address] [place] [address] Urine, urobilinogen 0.2 {Gretel'U}/dL Normal 0.0-1.0 [facility] Comment on above: Performed By: #### 1 7716687 ####[facility] [address] [place] [address] eGFRon 07-29-2017 eGFR (black) mL/min/{1.73_m2} Normal >=59 [facility] Comment on above: Order Comment: Order added by Discern Expert. Result Comment: eGFR is race adjusted. AA=. Performed By: #### 2 626787, 2512686, 0295345, 5086058, 2568801, 08414461, 5527212, 2947137, 78178116 ####[facility] [address] [place] [address] eGFR (non-black) mL/min/{1.73_m2} Normal >=59 [facility] Comment on above: Order Comment: Order added by Discern Expert. Result Comment: Organic Extractions Technician jorge kidney disease could be indicated at eGFR's of less than 60 mL/min/1.73m2. Kidney failure is indicated at less than 15 mL/min/1.73m2. Performed By: #### 2 881895, 8528224, 8296731, 0591074, 8669008, 04761042, 0642413, 2786927, 51608919 ####[facility] [address] [place] [address] Coding Summary.on 07-27-2017 Coding Summary. 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 However, the narrative phrase printed from the coding software may appear abbreviated, or result in slightly different terminology. Revised Coded By: Clarice Moeller Revised Date Saved: 07/27/2017 01:15 pm Normal [facility] Coding Summary. CODING DATE: [facility] STATUS: Home (Routine DC) PAYOR: Medicaid EAPG DESCRIPTION 0457 VENIPUNCTURE 0408 LEVEL I HEMATOLOGY TESTS 0405 THERAPEUTIC DRUG MONITORING 0403 ORGAN OR DISEASE ORIENTED PANELS 0410 URINALYSIS 0401 LEVEL II CHEMISTRY TESTS 0871 SIGNS, SYMPTOMS & OTHER FACTORS INFLUENCING HEALTH STATUS ADMIT DX: REASON FOR VISIT DX: R45.851 Suicidal ideations FINAL DX: PRINCIPAL: Z86.59 Personal history of other mental and behavioral disorders SECONDARY: Z79.899 Other usp (current) drug therapy PYMT PROC EAPG STAT DESCRIPTION DOCTOR NAME DATE NOTE: The code number assigned matches the documented diagnosis and / or procedure in the patient's chart. However, the narrative phrase printed from the coding software may appear abbreviated, or result in slightly different terminology. Revised Coded By: Clarice Moeller Revised Date Saved: 07/27/2017 01:12 pm Normal [facility] ED Note-Physicianon 07-27-20 17 ED Note-Physician Patient: PEPE MAGANA Age: 17 years Sex: Female : 2000 Associated Diagnoses: None Author: Peyton LOZANO, Tray Jean Basic Information Time seen: Immediately upon arrival. History source: Patient, manager statistical. Arrival mode: Private vehicle. History limitation: Cognitive impairment. Additional information: Chief Complaint from Nursing Triage Note : Chief Complaint 07/25/2017 19:15 EDT Chief Complaint pt states that she is having sucidial and homicial thoughts of killing herself and her Caregiver and her grandma with a knife, does have a history of depression and suicidal thoughts, initally told healthcare prof she was SOB 07/24/2017 14:25 EDT Chief Complaint Pt arrives via squad with suicidal thoughts. States she wants to use a knife and kill herself. Pt states she was just discharged from [facility] for the same thing.' Per squad pt reported wanting to kill her grandmother, pt denies this now. . History of Present Illness The patient presents with psychiatric problem and suicidal ideation. The onset was 1 days ago. The course/duration of symptoms is fluctuating in intensity. Character of symptoms depressed suicidal thoughts. The degree of symptoms is moderate. Self injury: none. The exacerbating factor is autistic. The relieving factor is none. Risk factors consist of non-compliance. Prior episodes: occasional. Therapy today: none. Associated symptoms: chest pain and shortness of breath. 17year old female with SI and HI since yesterday. She states she was going to stab herself but did not carry through. She was seen yesterday for same and was scheduled to see a psychiatrist in 2 days. Review of Systems Constitutional symptoms: Negative except as documented in HPI. Skin symptoms: Negative except as documented in HPI. Eye symptoms: Negative except as documented in HPI. ENMT symptoms: Negative except as documented in HPI. Respiratory symptoms: Shortness of breath. Cardiovascular symptoms: Chest pain, sharp upper chest pain. Gastrointestinal symptoms: Negative except as documented in HPI. Genitourinary symptoms: Negative except as documented in HPI. Musculoskeletal symptoms: Negative except as documented in HPI. Neurologic symptoms: Negative except as documented in HPI. Psychiatric symptoms: SI and HI. Endocrine symptoms: Negative except as documented in HPI. Hematologic/Lymphatic symptoms: Negative except as documented in HPI. Allergy/immunologic symptoms: Negative except as documented in HPI. Additional review of systems information: All other systems reviewed and otherwise negative. Health Status Allergies: Allergic Reactions (Selected)Severity Not DocumentedBee Stings- Sob.. Medications: (Selected) Documented MedicationsDocumentedcitalopr am 20 mg Tab: 20 mg = 1 tab(s), Oral, Daily, Refills(s) 0risperidone 1 mg oral tablet: Refills(s) 0. Past Medical/ Family/ Social History Medical history: ResolvedDiabetes ([id number]): Resolved.Suicidal plans ([id number]): Resolved.. Surgical history: None ([id number]).. Family history: No family history items have been selected or recorded.. Social history: Social & Psychosocial HabitsAlcohol Comment: rich. - 06/10/2017 18:11 - Kathy Vasquez RN01/20/2017 Risk Assessment: Denies Alcohol Use07/02/2017 Frequency: DailySubstance Abuse Comment: rich. - 06/10/2017 18:11 - Kathy Vasquez RN01/20/2017 Risk Assessment: Denies Substance AbuseTobacco Comment: smokes 2 ppd. - 06/10/2017 18:11 - Kathy Vasquez RN N001/20/2017 Risk Assessment: Denies Tobacco Use07/24/2017 Use: Current Every Day Smoker Type: Cigarettes Comment: Smoke 2 cigarettes a day - 07/24/2017 14:38 - Franny Valverde RN. Problem list: Active Problems (1)Smoker . Physical Examination Vital Signs Vital Signs 07/25/2017 19:15 EDT Temperature Oral 36.8 DegC Peripheral Pulse Rate 109 bpm HI Respiratory Rate 20 br/min Systolic Blood Pressure 149 mmHg HI Diastolic Blood Pressure 97 mmHg HI SpO2 98 % 07/24/2017 16:00 EDT Peripheral Pulse Rate 114 bpm HI Respiratory Rate 22 br/min HI Systolic Blood Pressure 134 mmHg Diastolic Blood Pressure 94 mmHg HI SpO2 99 % 07/24/2017 14:34 EDT Peripheral Pulse Rate 119 bpm HI Respiratory Rate 22 br/min HI Systolic Blood Pressure 124 mmHg Diastolic Blood Pressure 91 mmHg HI SpO2 94 % 07/24/2017 14:00 EDT Temperature Oral 36.8 DegC . Measurements 07/25/2017 19:15 EDT Height/Length Measured 165 cm Body Mass Index Measured 47.79 kg/m2 Weight Measured 130.1 kg BMI Percentile 99.18 07/24/2017 14:34 EDT Height/Length Estimated 165.1 cm Weight Estimated 127.9 kg . Basic Oxygen Information 07/25/2017 19:15 EDT SpO2 98 % Oxygen Therapy Room air 07/24/2017 16:00 EDT SpO2 99 % Oxygen Therapy Room air 07/24/2017 14:34 EDT SpO2 94 % . General: Alert, no acute distress. Skin: Warm, dry, pink. Head: Normocephalic, atraumatic. Neck: Supple, trachea midline, no tenderness. Eye: Pupils are equal, round and reactive to light, extraocular movements are intact, normal conjunctiva. Ears, nose, mouth and throat: Tympanic membranes clear, oral mucosa moist. Cardiovascular: Regular rate and rhythm, No murmur. Respiratory: Lungs are clear to auscultation, respirations are non-labored, breath sounds are equal, Symmetrical chest wall expansion. Chest wall: reproducible upper sternal tenderness. Back: Nontender. Musculoskeletal: Normal ROM, normal strength, no tenderness. Gastrointestinal: Soft, Nontender, morbidly obese. Neurological: Alert and oriented to person, place, time, and situation, No focal neurological deficit observed, CN II-XII intact, normal sensory observed. Psychiatric: Cooperative, Mood and affect: Depressed, Abnormal / Psychotic thoughts: Suicidal, homicidal. Medical Decision Making Differential Diagnosis: Depression, schizophrenia, suicidal ideation. Rationale: discussed with firelands and manager statistical feels comfortable taking patient home today , she is scheduled to see psychiatry in 2 days. Documents reviewed: Emergency department nurses' notes. Results review: All Results 07/25/2017 21:04 EDT ED Vital Signs and Pain - Text 07/25/2017 19:58 EDT XR Chest 2 Views RAD REPORT (In Progress) 07/25/2017 19:52 EDT ED Triage and Assessment Adult - Text 07/25/2017 19:29 EDT ED Note-Physician Suicidal ideation (In Progress) 07/25/2017 19:15 EDT ED Triage and Assessment Adult - Text 07/25/2017 19:08 EDT Consent for Treatment 07/25/2017 21:04 EDT Peripheral Pulse Rate 97 bpm Respiratory Rate 18 br/min Systolic Blood Pressure 120 mmHg Diastolic Blood Pressure 78 mmHg SpO2 98 % Oxygen Therapy Room air 07/25/2017 19:52 EDT GI Symptoms Abdominal tenderness Abdomen Palpation Soft, Tender Bowel Sounds LUQ Present Bowel Sounds RUQ Present Bowel Sounds LLQ Present Bowel Sounds RLQ Present Eye Opening Response [place] Spontaneously Best Motor Response Js Obeys simple commands Best Verbal Response [place] Oriented [place] Coma Score 15 Domestic Concerns None Suicidal Ideation Plan Suicide Plan Formulated Verbalizes Suicide Method Other: i want to cut myself Suicide Plan Includes Harm to Others Yes Suicide Plan Associated Name patient states she tried to hurt her caregiver today. caregiver sitting @ bedside and she states this is not true. she states she has not tried to harm her. Recent Travel History No recent travel Reg Cigarette Smoking Last 365 Days Yes 07/25/2017 19:45 EDT WBC 11.4 E9/L HI RBC 4.8 E12/L Hgb 13.8 gm/dL Hct 40.4 % MCV 84.0 fL MCH 28.7 pg MCHC 34.2 gm/dL RDW 12.5 % Platelet 267.0 E9/L MPV 7.4 fL Neutro Auto 58.1 % Lymph Auto 33.7 % [place] Auto 6.8 % Eos Auto 1.0 % Basophil Auto 0.4 % Neutro Absolute 6.6 E9/L Lymph Absolute 3.9 E9/L [place] Absolute 0.8 E9/L Eos Absolute 0.1 E9/L Basophil Absolute 0.0 E9/L Glucose Lvl 129 mg/dL BUN 11 mg/dL Creatinine 0.9 mg/dL eGFR >60 mL/min/1.73 m2 eGFR AA >60 mL/min/1.73 m2 BUN/Creat Ratio 12 Sodium Lvl 140 mmol/L Potassium Lvl 3.3 mmol/L LOW Chloride 106 mmol/L CO2 21 mmol/L AGAP 16 mEq/L Calcium Lvl 8.9 mg/dL Alk Phos 82 Int._Unit/L ALT 25 Int._Unit/L AST 25 Int._Unit/L Total Protein 7.0 gm/dL Albumin Lvl 3.9 gm/dL Globulin 3.1 gm/dL A/G Ratio 1.3 Bili Total 0.4 mg/dL Ethanol Lvl <5 mg/dL 07/25/2017 19:33 EDT ECG 12-Lead Exam Completed (In Progress) 07/25/2017 19:32 EDT U Amph Scr Negative U Daniella Scr Negative U Benzodia Scr Negative U Cannab Scr Negative U Cocaine Scr Negative U Opiate Scr Negative U PCP Scr Negative UA Spec Desc Clean Catch UA Color Yellow UA Clarity Clear UA Spec Grav 1.025 UA pH 6.0 UA Protein Negative UA Glucose Negative UA Ketones Negative UA Bili Negative UA Blood Trace UA Nitrite Negative UA Urobilinogen 0.2 EU/dL UA Leuk Est Negative UA RBC 0-3 /HPF UA Squam Epithelial 5-8 /HPF UA WBC 0-5 /HPF UA Bacteria 1+ /HPF UA Mucous Trace 07/25/2017 19:15 EDT Height/Length Measured 165 cm Body Mass Index Measured 47.79 kg/m2 Weight Measured 130.1 kg BMI Percentile 99.18 Temperature Oral 36.8 DegC Peripheral Pulse Rate 109 bpm HI Respiratory Rate 20 br/min Systolic Blood Pressure 149 mmHg HI Diastolic Blood Pressure 97 mmHg HI SpO2 98 % TERESITA Level 1 No TERESITA Level 2 Yes Recommended TERESITA Level 2 Level of Consciousness Alert Oxygen Therapy Room air Skin Color Normal for ethnicity Skin Temperature Warm Skin Description Dry Orientation Oriented x 3 Affect/Behavior Anxious MRSA/VRE/Other Active-Hx No C-Diff Active/Hx No Recent Travel History No recent travel 07/24/2017 18:09 EDT Outside Records 07/24/2017 17:10 EDT ED Patient Education Note ED Patient Education Note (Modified) 07/24/2017 17:10 EDT ED Patient Summary ED Patient Summary (Modified) 07/24/2017 17:10 EDT ED Clinical Summary ED Clinical Summary (Modified) 07/24/2017 17:05 EDT Discharge Instructions 07/24/2017 17:04 EDT ED Note-Nursing 07/24/2017 16:34 EDT ED Note-Nursing 07/24/2017 16:22 EDT ED Note-Nursing 07/24/2017 16:18 EDT Consent Consent 07/24/2017 16:05 EDT ED Note-Nursing 07/24/2017 15:51 EDT ED Note-Nursing 07/24/2017 15:48 EDT ED Note-Nursing 07/24/2017 15:33 EDT ED Note-Nursing 07/24/2017 15:22 EDT ED Note-Nursing 07/24/2017 14:53 EDT ED Note-Nursing 07/24/2017 14:46 EDT Auth for Release of Medical Records 07/24/2017 14:39 EDT ED Note-Nursing 07/24/2017 14:34 EDT ED Triage and Assessment Adult - Text 07/24/2017 14:30 EDT ED Note-Physician Suicidal ideation (Unauth) 07/24/2017 14:25 EDT EMS Documentation ED Triage and Assessment Adult - Text 07/24/2017 14:24 EDT Pre-Arrival Note Pre-Arrival Note 07/24/2017 16:00 EDT Peripheral Pulse Rate 114 bpm HI Respiratory Rate 22 br/min HI Systolic Blood Pressure 134 mmHg Diastolic Blood Pressure 94 mmHg HI SpO2 99 % Oxygen Therapy Room air 07/24/2017 14:48 EDT U Amph Scr Negative U Daniella Scr Negative U Benzodia Scr Negative U Cannab Scr Negative U Cocaine Scr Negative U Opiate Scr Negative U PCP Scr Negative U beta hCG Ql Negative 07/24/2017 14:36 EDT WBC 10.1 E9/L RBC 5.0 E12/L Hgb 14.7 gm/dL Hct 42.4 % MCV 84.4 fL MCH 29.2 pg MCHC 34.6 gm/dL RDW 12.9 % Platelet 288.0 E9/L MPV 7.8 fL Neutro Auto 57.1 % Lymph Auto 35.5 % [place] Auto 6.2 % Eos Auto 0.8 % Basophil Auto 0.4 % Neutro Absolute 5.7 E9/L Lymph Absolute 3.6 E9/L [place] Absolute 0.6 E9/L Eos Absolute 0.1 E9/L Basophil Absolute 0.0 E9/L Glucose Lvl 143 mg/dL BUN 13 mg/dL Creatinine 0.8 mg/dL eGFR >60 mL/min/1.73 m2 eGFR AA >60 mL/min/1.73 m2 BUN/Creat Ratio 16 Sodium Lvl 136 mmol/L Potassium Lvl 3.3 mmol/L LOW Chloride 101 mmol/L CO2 25 mmol/L AGAP 13 mEq/L Calcium Lvl 8.8 mg/dL LOW Alk Phos 82 Int._Unit/L ALT 27 Int._Unit/L AST 23 Int._Unit/L Total Protein 7.5 gm/dL Albumin Lvl 4.0 gm/dL Globulin 3.5 gm/dL A/G Ratio 1.1 Bili Total 0.4 mg/dL Acetaminoph Lvl <10 microgram/mL LOW Salicylate Lvl <4 mg/dL LOW Ethanol Lvl <5 mg/dL 07/24/2017 14:34 EDT Height/Length Estimated 165.1 cm Weight Estimated 127.9 kg Peripheral Pulse Rate 119 bpm HI Respiratory Rate 22 br/min HI Systolic Blood Pressure 124 mmHg Diastolic Blood Pressure 91 mmHg HI SpO2 94 % Respirations Unlabored Respiratory Pattern Description Regular Left Upper Lobe Breath Sounds Clear Right Upper Lobe Breath Sounds Clear Right Middle Lobe Breath Sounds Clear Left Lower Lobe Breath Sounds Clear Right Lower Lobe Breath Sounds Clear GI Symptoms None Abdomen Description Rounded, Symmetric, Other: obese Abdomen Palpation Non-Tender, Soft Bowel Sounds LUQ Present Bowel Sounds RUQ Present Bowel Sounds LLQ Present Bowel Sounds RLQ Present Status Possible unconfirmed Skin Integrity Intact, no abnormalities Skin Turgor Elastic Mucous Membrane Color Devol Mucous Membrane Description Moist Eye Opening Response Js Spontaneously Best Motor Response Js Obeys simple commands Best Verbal Response [place] Oriented Js Coma Score 15 History of Fall in Last 3 Months Mills No Presence of Secondary Diagnosis Mills Yes Use of Ambulatory Aid Mills None, bedrest, wheelchair, nurse IV/Heparin Lock Fall Risk Mills No Gait Weak or Impaired Fall Risk Mills Normal, bedrest, immobile Mental Status Fall Risk Mills Oriented to own ability Mills Fall Risk Score 15 Domestic Concerns None Suicidal Ideation Plan Suicide Plan Formulated Verbalizes Suicide Method Other: States she wants to use a knife and kill herself. Suicide Plan Includes Harm to Others No Recent Travel History No recent travel Reg Cigarette Smoking Last 365 Days Yes 07/24/2017 14:25 EDT Patient Preferred Pain Tool Numeric rating Numeric Pain Scale 0 = No pain Numeric Pain Score 0 TERESITA Level 1 No TERESITA Level 2 Yes Recommended TERESITA Level 2 Level of Consciousness Alert Skin Color Normal for ethnicity Skin Temperature Warm Skin Description Dry Orientation Oriented x 3 Affect/Behavior Flat, Withdrawn MRSA/VRE/Other Active-Hx No C-Diff Active/Hx No Recent Travel History No recent travel 07/24/2017 14:00 EDT Temperature Oral 36.8 DegC . Chest X-Ray: No acute disease process. Reexamination/ Reevaluation Vital signs Basic Oxygen Information 07/25/2017 19:15 EDT SpO2 98 % Oxygen Therapy Room air 07/24/2017 16:00 EDT SpO2 99 % Oxygen Therapy Room air 07/24/2017 14:34 EDT SpO2 94 % Impression and Plan Diagnosis Suicidal ideation ([id number] R45.851, Discharge, Medical) Plan Condition: Stable. Disposition: Medically cleared, Discharged: Time 07/25/17 21:19:00, to home. Patient was given the following educational materials: Depression, Adult, [id number], Schizophrenia, Suicidal Feelings: How to Help Yourself, Suicidal Feelings: How to Help Yourself, Schizophrenia, Depression, Adult, [id number]. Follow up with: Barbara Mcknight In 3 days 07/28/2017; [facility] In 3 days 07/28/2017. Counseled: Patient, Family, Regarding diagnosis, Regarding diagnostic results, Regarding treatment plan, Regarding prescription, Patient indicated understanding of instructions. Addendum Chart reviewed and based on data available the care seems appropriate. [facility] Comment on above: Result Comment: Elec tronically Signed By: Tray Todd PA-C\.br\Date and Time Signed: 07/25/17 21:20 EDT\.br\Electronically Co-Signed By: Jamee Fernandes DO\.br\Date and Time Co-Signed: 07/27/17 16:46 EDT ED Note-Physician Patient: PEPE MAGANA Age: 17 years Sex: Female : 2000 Associated Diagnoses: None Author: Tyson North PA-C Basic Information Time seen: Date & time 07/24/17 14:22:00. History source: Patient, EMS. Arrival mode: Ambulance. History limitation: Cognitive impairment, Patient is a poor historian. History of Present Illness This is a 17-year-old female presents to the emergency department via EMS. Patient states that she was at [facility] in [facility] until this morning. She states that she was there about 9 days and discharged this morning. She states that she has had suicidal thoughts since yesterday. She states that she is specifically think about cutting herself with a knife. Patient states that she had a right elbow from [place] by her grandmother who is her legal guardian. Patient is unaware of the medications she is taking stating that her grandmother has the medications. Patient does not know if they changed any of her medications in [place]. She states she was medicated there. She also states that she saw a psychiatrist and counselor. She denies any homicidal ideations. She denies any fever or chills. No shortness of breath or chest pain. No abdominal pain. No chance of . Patient denies any history of diabetes or heart disease. Patient states she has a history of depression, bipolar disorder, and schizophrenia. Review of Systems Unless otherwise stated in this report or unable to obtain because of patient's clinical or mental status as evidenced by the medical record, the patient's positive and negative responses for review of systems for constitutional, eyes, ENT, cardiovascular, respiratory, gastrointestinal, neurological, genitourinary, musculoskeletal and integumentary systems and related systems to the presenting problem are either as stated in the HPI or were not pertinent or were negative for the symptoms and/or complaints related to the presenting medical problem. Health Status Allergies: Allergic Reactions (Selected)Severity Not DocumentedBee Stings- Sob.. Medications: (Selected) PrescriptionsPrescribedCipro 250 mg Tab: 250 mg = 1 tab(s), Oral, q12hr, # 14 tab(s), Refills(s) 0Documented MedicationsDocumentedcitalopr am 20 mg Tab: 20 mg = 1 tab(s), Oral, Daily, Refills(s) 0risperidone 1 mg oral tablet: Refills(s) 0. Past Medical/ Family/ Social History Medical history: ResolvedDiabetes ([id number]): Resolved.Suicidal plans ([id number]): Resolved., Schizophrenia, bipolar disorder, depression. Surgical history: None ([id number]).. Family history: No family history items have been selected or recorded., Reviewed as documented in chart. Social history: Social & Psychosocial HabitsAlcohol Comment: rich. - 06/10/2017 18:11 - Kathy Vasquez RN01/20/2017 Risk Assessment: Denies Alcohol Use07/02/2017 Frequency: DailySubstance Abuse Comment: rich. - 06/10/2017 18:11 - Kathy Vasquez RN01/20/2017 Risk Assessment: Denies Substance AbuseTobacco Comment: smokes 2 ppd. - 06/10/2017 18:11 - Kathy Vasquez RN01/20/2017 Risk Assessment: Denies Tobacco Use, Reviewed as documented in chart, Patient lives with her grandmother who is her guardian.. Problem list: Active Problems (1)Smoker , per nurse's notes. Physical Examination General: Alert, no acute distress, Not ill-appearing, Skin: Warm, dry, intact, no pallor, no rash, normal for ethnicity, not cyanotic, not cool, not pale. Head: Normocephalic, atraumatic. Neck: Trachea midline, no tenderness. Eye: Pupils are equal, round and reactive to light, extraocular movements are intact, normal conjunctiva, vision unchanged. Ears, nose, mouth and throat: Oral mucosa moist, no pharyngeal erythema or exudate. Cardiovascular: Regular rate and rhythm, No murmur, Normal peripheral perfusion, No edema. Respiratory: Lungs are clear to auscultation, respirations are non-labored, breath sounds are equal, Symmetrical chest wall expansion. Chest wall: No tenderness. Back: Nontender, Normal range of motion. Musculoskeletal: Normal ROM, normal strength. Gastrointestinal: Soft, Nontender, Non distended, Normal bowel sounds, No organomegaly. Neurological: Alert and oriented to person, place, time, and situation, No focal neurological deficit observed, CN II-XII intact, normal sensory observed, normal motor observed. Lymphatics: No lymphadenopathy. Psychiatric: Cooperative, Flat affect and poor eye contact. Judgment is difficult to discern, Admits to suicidal ideation, Mood and affect: Depressed. Medical Decision Making Differential Diagnosis: Depression, suicide risk. Rationale: Suicidal ideation, The patient admitted to the nurse that she was here because she was let out of [facility] due to the fact she wanted to get her cell phone and they would not give it to her. Patient actually denied suicidal ideation to our nurse.. Documents reviewed: Emergency department nurses' notes. Orders Launch Order Profile (Selected) Inpatient OrdersOrderedConsult to Mental Health: 07/24/17 14:33:00 EDT, Suicidal ideation, Consult and Co-managePatient in a gown.: 07/24/17 14:24:00 EDT, Patient in a gown.Ordered (In-Lab)Drug Screen Urine: Urine, Stat collect, 07/24/17 14:24:00 EDT, Once, Stop date 07/24/17 14:24:00 EDT, Nurse collectCompletedAcetaminophen Level: Blood, Stat collect, 07/24/17 14:24:00 EDT, Once, Stop date 07/24/17 14:24:00 EDT, Lab CollectAlcohol Level: Blood, Stat collect, 07/24/17 14:24:00 EDT, Once, Stop date 07/24/17 14:24:00 EDT, Lab CollectAutomated Diff: Blood, Stat collect, Collected, 07/24/17 14:36:00 EDT, Once, Stop date 07/24/17 14:36:00 EDT, Lab CollectCBC w/ Auto Diff: Blood, Stat collect, 07/24/17 14:24:00 EDT, Once, Stop date 07/24/17 14:24:00 EDT, Lab CollectCMP: Blood, Stat collect, 07/24/17 14:24:00 EDT, Once, Stop date 07/24/17 14:24:00 EDT, Lab CollectExtra Blue Tube: Blood, Stat collect, Collected, 07/24/17 14:36:00 EDT by FTHAZELER, Once, Stop date 07/24/17 14:36:00 EDT, Lab Collect, Venous Draw, YesExtra SST Tube: Blood, Stat collect, Collected, 07/24/17 14:36:00 EDT by FTEWEAVER, Once, Stop date 07/24/17 14:36:00 EDT, Lab Collect, Venous Draw, YesSalicylate Level: Blood, Stat collect, 07/24/17 14:24:00 EDT, Once, Stop date 07/24/17 14:24:00 EDT, Lab CollectU Beta Hcg Qual: Urine, Stat collect, 07/24/17 14:24:00 EDT, Once, Stop date 07/24/17 14:24:00 EDT, Nurse collecteGFR: Blood, Stat collect, Collected, 07/24/17 14:36:00 EDT, Once, Stop date 07/24/17 14:36:00 EDT, Lab Collect. Results review: Lab results : Lab View 07/24/2017 14:48 EDT U beta hCG Ql Negative 07/24/2017 14:36 EDT WBC 10.1 E9/L RBC 5.0 E12/L Hgb 14.7 gm/dL Hct 42.4 % MCV 84.4 fL MCH 29.2 pg MCHC 34.6 gm/dL RDW 12.9 % Platelet 288.0 E9/L MPV 7.8 fL Neutro Auto 57.1 % Lymph Auto 35.5 % [place] Auto 6.2 % Eos Auto 0.8 % Basophil Auto 0.4 % Neutro Absolute 5.7 E9/L Lymph Absolute 3.6 E9/L [place] Absolute 0.6 E9/L Eos Absolute 0.1 E9/L Basophil Absolute 0.0 E9/L Glucose Lvl 143 mg/dL BUN 13 mg/dL Creatinine 0.8 mg/dL eGFR >60 mL/min/1.73 m2 eGFR AA >60 mL/min/1.73 m2 BUN/Creat Ratio 16 Sodium Lvl 136 mmol/L Potassium Lvl 3.3 mmol/L LOW Chloride 101 mmol/L CO2 25 mmol/L AGAP 13 mEq/L Calcium Lvl 8.8 mg/dL LOW Alk Phos 82 Int._Unit/L ALT 27 Int._Unit/L AST 23 Int._Unit/L Total Protein 7.5 gm/dL Albumin Lvl 4.0 gm/dL Globulin 3.5 gm/dL A/G Ratio 1.1 Bili Total 0.4 mg/dL Acetaminoph Lvl <10 microgram/mL LOW Salicylate Lvl <4 mg/dL LOW Ethanol Lvl <5 mg/dL . Notes: This case was discussed with the attending physician regarding diagnosis and disposition.Patient had a mental health evaluation in the ER after medical clearance. Grandmother is here with the patient. They do contract a safety plan with the mental health worker. Return and follow-up parameters discussed. Patient denies suicidality currently.. Reexamination/ Reevaluation Time: 07/24/17 15:30:00 . Vital signs results included from flowsheet : Vital Signs Course: unchanged. Pain status: unchanged. Assessment: exam unchanged. Impression and Plan Diagnosis Hx of schizophrenia ([id number] Z86.59, Discharge, Medical) Plan Condition: Stable. Disposition: Discharged: Time 07/24/17 16:51:00, to home. Patient was given the following educational materials: Depression, Adult, Ntqf-hm-Goab. Follow up with: Barbara Mcknight In 3 days 07/27/2017 Follow-up as an outpatient with your psychiatrist as directed by mental services.The patient was advised to return to the ER immediately if symptoms worsen, problems arise, or any other issues develop. Ensure that you follow up as directed.Patient is released with her guardian/grandmother.. Counseled: Patient, Family, Regarding diagnosis, Regarding diagnostic results, Regarding treatment plan, Regarding prescription, Patient indicated understanding of instructions. Addendum I participated in the following activities of this Patient's care: Pt care discussed and disposition. The Patient was seen in conjunction with the APC and I am in agreement with the evaluation, treatment and plan. ALl pertitent physical exam findings, laboratory findings, radiological findings were discussed and reviewed. Disposition was discussed and agreed upon. Normal [facility] Comment on above: Result Comment: Elec tronically Signed By: Tyson North PA-C\.br\Date and Time Signed: 07/24/17 16:52 EDT\.br\Electronically Co-Signed By: Jamee Fernandes DO\.br\Date and Time Co-Signed: 07/27/17 16:24 EDT XR Chest 2 Viewson 7 XR Chest 2 Views Exam Date/Time:07/25 19:58 EDTReason for Exam:Shortness of breath (SOB)ReportIMPRESSION: NO RADIOGRAPHIC EVIDENCE OF ACTIVE DISEASE IN THE CHEST.CLINICAL INFORMATION: Shortness of breath (SOB)COMPARISON: None available.FINDINGS: Two views of the chest were obtained. Heart and mediastinum appearnormal. The lungs appear clear. Visualized bony thorax and remainder of the chestappears unremarkable. FINAL REPORT Dictated: 07/26/2017 8:26 am Marie Arrington MD Signed (Electronic Signature): 07/26/2017 8:26 am Signed by: Marie Arrington MD Transcribed by: DENIA Technologist: ARABELLA Normal [facility] Auto Diffon 07-25-2017 Basophils Auto #/vol (Bld) 0.0 E9/L Normal 0.0-0.2 [facility] Comment on above: Order Comment: Order Added by Discern Expert. Performed By: #### 2 [id number] ####[facility] [address] [place] [address] Basophils Auto #/vol (Bld) 0.4 % Normal 0.0-2.0 [facility] Comment on above: Order Comment: Order Added by Discern Expert. Performed By: #### 2 [id number] ####[facility] [address] [place] [address] Eosinophils 0.1 E9/L Normal 0.0-0.5 [facility] Comment on above: Order Comment: Order Added by Discern Expert. Performed By: #### 2 [id number] ####[address] [place] [address] Eosinophils/100 leukocytes 1.0 % Normal 0.0-8.0 [facility] Comment on above: Order Comment: Order Added by Discern Expert. Performed By: #### 2 [id number] ####[address] [address] Lymphocytes 3.9 E9/L Normal 1.0-4.0 [facility] Comment on above: Order Comment: Order Added by Discern Expert. Performed By: #### 2 [id number] ####[facility] [address] [place] [address] Lymphocytes/100 leukocytes 33.7 % Normal 14.0-50.0 [facility] Comment on above: Order Comment: Order Added by Discern Expert. Performed By: #### 2 [id number] ####[address] [place] [address] Monocytes 0.8 E9/L Normal 0.2-1.0 [facility] Comment on above: Order Comment: Order Added by Discern Expert. Performed By: #### 2 [id number] ####[facility] [id number] [place] [address] Monocytes/100 leukocytes 6.8 % Normal 4.0-14.0 [facility] Comment on above: Order Comment: Order Added by Discern Expert. Performed By: #### 2 [id number] ####[facility] [address] [place] [address] Neutrophils 6.6 E9/L Normal 2.0-7.5 [facility] Comment on above: Order Comment: Order Added by Discern Expert. Performed By: #### 2 [id number] ####[address] [address] Neutrophils/100 leukocytes 58.1 % Normal 36.0-75.0 [facility] Comment on above: Order Comment: Order Added by Discern Expert. Performed By: #### 2 [id number] ####[address] [address] CBC w/ Auto Diffon Erythrocyte distribution width Auto Ratio (RBC) 12.5 % Normal 10.9-14.2 [facility] Comment on above: Performed By: #### 2 [id number] ####[address] [address] Erythrocytes (RBC) 4.8 E12/L Normal 4.3-5.9 [facility] Comment on above: Performed By: #### 2 [id number] ####[address] [address] Hematocrit (HCT) 40.4 % Normal 34.0-46.0 [facility] Comment on above: Performed By: #### 2 [id number] ####[address] [address] Hemoglobin mass conc (Bld) 13.8 g/dL Normal 12.0-16.0 [facility] Comment on above: Performed By: #### 2 [id number] ####[address] [address] MCH 28.7 pg Normal 27.0-34.0 [facility] Comment on above: Performed By: #### 2 [id number] ####[address] [address] MCHC mass conc (RBC) 34.2 g/dL Normal 31.4-39.3 [facility] Comment on above: Performed By: #### 2 [id number] ####[address] [place] [address] MCV 84.0 fL Normal 80.0-100.0 [facility] Comment on above: Performed By: #### 2 [id number] ####[address] [address] Platelet mean volume (PMV) 7.4 fL Normal 6.4-10.8 [facility] Comment on above: Performed By: #### 2 [id number] ####[address] [address] Platelets 267.0 E9/L Normal 150.0-500. 0 [facility] Comment on above: Performed By: #### 2 [id number] ####[address] [address] WBC (Leukocytes) 11.4 E9/L High 4.0-11.0 [facility] Comment on above: Performed By: #### 2 [id number] ####[address] [address] CMPon 07-25-2017 Alanine aminotransferase (ALT) 25 Int._Unit/L Normal 6-46 [facility] Comment on above: Performed By: #### 2 [id number] ####[address] [address] Albumin 1.3 g/dL Normal 1.1-2.2 [facility] Comment on above: Performed By: #### 2 [id number] ####[address] [address] Albumin 3.9 g/dL Normal 3.3-5.0 [facility] Comment on above: Performed By: #### 2 [id number] ####[address] [address] Alkaline phosphatase (ALP) 82 Int._Unit/L Normal 21-98 [facility] Comment on above: Performed By: #### 2 [id number] ####[address] [address] Aspartate aminotransferase (AST) 25 Int._Unit/L Normal 5-43 [facility] Comment on above: Performed By: #### 2 [id number] ####[facility] [address] [place] [address] Bilirubin (total) 0.4 mg/dL Normal 0.0-1.1 [facility] Comment on above: Performed By: #### 2 [id number] ####[facility] [address] [place] [address] BUN/Creatinine Ratio 12 No Units Normal 10-20 [facility] Comment on above: Performed By: #### 2 [id number] ####[address] [place] [address] Creatinine 0.9 mg/dL Normal 0.5-1.3 [facility] Comment on above: Performed By: #### 2 [id number] ####[address] [address] Globulin 3.1 g/dL Normal 1.4-4.0 [facility] Comment on above: Performed By: #### 2 [id number] ####[address] [place] [address] Protein 7.0 g/dL Normal 6.0-7.8 [facility] Comment on above: Performed By: #### 2 [id number] ####[address] [id number] [place] [address] Urea nitrogen 11 mg/dL Normal 5-21 [facility] Comment on above: Performed By: #### 2 [id number] ####[facility] [address] [place] [address] Anion gap 16 mmol/L Normal 6-16 [facility] Comment on above: Performed By: #### 2 [id number] ####[facility] [address] [place] [address] Calcium 8.9 mg/dL Normal 8.9-11.1 [facility] Comment on above: Performed By: #### 2 [id number] ####[facility] [address] [place] [address] Chloride 106 mmol/L Normal 101-111 [facility] Comment on above: Performed By: #### 2 [id number] ####[facility] [address] [place] [address] CO2 21 mmol/L Normal 21-31 [facility] Comment on above: Performed By: #### 2 [id number] ####[facility] [address] [place] [id number] Glucose mass conc 129 mg/dL Normal 55-199 [facility] Comment on above: Result Comment: If t his glucose result represents a fasting glucose, interpretation should refer to the following reference range: 55-99 mg/dL Performed By: #### 2 [id number] ####[address] [place] [address] Potassium molar conc 3.3 mmol/L Low 3.5-5.3 [facility] Comment on above: Performed By: #### 2 [id number] ####[facility] [address] [place] [address] Sodium 140 mmol/L Normal 135-145 [facility] Comment on above: Performed By: #### 2 [id number] ####[facility] [address] [place], [place] [id number] ED Clinical Summaryon 2016 ED Clinical Summary (Inserted Image. Silvia ble to display) [place] [id number] ED Clinical SummaryPerson Information Name: CRIS MAGANA/HarlanDemetris Age: 17 Years : 2000 12:00 AM Sex: Female Language:Italian PCP: Barbara Mcknight MD Marital Status:Single Visit Id: Visit Reason:Suicidal ideation; SOB - Shortness of breath; Suicidal thoughts; SUICIDAL THOUGHTS Speciality: Acuity: 2 Enc Type: Emergency Med Service: Emergency Arrival:07/25/2017 7:07 PM Discharge: 07/25/2017 9:31 PM LOS: 000 02:24 Checkin:07/25/2017 7:07 PM Checkout: 07/25/2017 9:31 PM Dispo Type: Home (Routine DC) EVENTS:Event Name Event Status Request Date/Time Start Date/Time Complete Date/Time Arrive Complete 07/25/2017 7:07 PM 07/25/2017 7:07 PM 07/25/2017 7:07 PM Document Home Meds Request 07/25/2017 7:07 PM Triage Complete 07/25/2017 7:07 PM 07/25/2017 7:18 PM 07/25/2017 7:[address] Exam Complete 07/25/2017 7:10 PM 07/25/2017 7:10 PM 07/25/2017 7:10 PM Registration Complete 07/25/2017 7:10 PM 07/25/2017 7:18 PM 07/25/2017 7:31 PM EKG Complete 07/25/2017 7:17 PM 07/25/2017 7:34 PM Bed Assign Complete 07/25/2017 7:18 PM 07/25/2017 7:18 PM 07/25/2017 7:18 PM RN Exam Complete 07/25/2017 7:18 PM 07/25/2017 7:56 PM 07/25/2017 7:[address] Exam Complete 07/25/2017 7:23 PM 07/25/2017 7:23 PM 07/25/2017 7:23 PM Pending Labs Complete 07/25/2017 7:24 PM 07/25/2017 9:09 PM Lab Complete 07/25/2017 7:24 PM 07/25/2017 9:09 PM Urine Collect Complete 07/25/2017 7:24 PM 07/25/2017 8:31 PM Patient Care Request 07/25/2017 7:24 PM X-Ray Complete 07/25/2017 7:24 PM 07/25/2017 7:47 PM 07/25/2017 7:58 PM Reg Complete Request 07/25/2017 7:31 PM Reg Bed Request Complete 07/25/2017 7:31 PM 07/25/2017 7:31 PM 07/25/2017 7:31 PM Meds Admin Complete 07/25/2017 7:40 PM 07/25/2017 7:59 PM Pending Labs Complete 07/25/2017 7:49 PM 07/25/2017 7:49 PM 07/25/2017 9:09 PM Lab Complete 07/25/2017 7:49 PM 07/25/2017 7:49 PM 07/25/2017 9:09 PM Wet Read Request 07/25/2017 7:58 PM Pending Labs Complete 07/25/2017 8:02 PM 07/25/2017 8:02 PM 07/25/2017 8:02 PM Lab Complete 07/25/2017 8:02 PM 07/25/2017 8:02 PM 07/25/2017 8:02 PM Discharge Complete 07/25/2017 9:20 PM 07/25/2017 9:31 PM 07/25/2017 9:31 PM Transfer Complete 07/25/2017 9:31 PM 07/25/2017 9:31 PM 07/25/2017 9:31 PM ADDRESS:[address] [place] [address] [facility] [id number] PHYS DOC NOTES: MEDICAL INFORMATION: Prescriptions Given:PATIENT EDUCATION INFORMATION: Instructions:Suicidal Feelings: How to Help Yourself; Schizophrenia; Depression, Adult, Maxx-oi-Itsw Follow up:With: Address: When: [facility] In 3 days 07/28/2017 With: Address: When: Barbara Mcknight [address] [facility] [address], [place] [address] [facility] (3) In 3 days DIAGNOSIS:Acute depression; Schizophrenia; Suicidal ideation Normal [facility] ED Patient Education Noteon 07-25-2017 ED Patient Education Note Patient Education Materials Follows:MedicineSuicidal Feelings, How to Help YourselfEveryone feels sad or unhappy at times, but depressing thoughts and feelings of hopelessness can lead to thoughts of suicide. It can seem as if life is too tough to handle. If you feel as though you have reached the point where suicide is the only answer, it is time to let someone know immediately. HOW TO COPE AND PREVENT SUICIDE? Let family, friends, teachers, or counselors know. Get help. Try not to isolate yourself from those who care about you. Even though you may not feel sociable, talk with someone every day. It is best if it is osxd-on-kqtu. Remember, they will want to help you.? Eat a regularly spaced and well-balanced diet. ? Get plenty of rest. ? Avoid alcohol and drugs because they will only make you feel worse and may also lower your inhibitions. Remove them from the home. If you are thinking of taking an overdose of your prescribed medicines, give your medicines to someone who can give them to you one day at a time. If you are on antidepressants, let your caregiver know of your feelings so he or she can provide a safer medicine, if that is a concern.? Remove weapons or poisons from your home.? Try to stick to routines. Follow a schedule and remind yourself that you have to keep that schedule every day. ? Set some realistic goals and achieve them. Make a list and cross things off as you go. Accomplishments give a sense of worth. Wait until you are feeling better before doing things you find difficult or unpleasant to do.? If you are able, try to start exercising. Even half-hour periods of exercise each day will make you feel better. Getting out in the sun or into nature helps you recover from depression faster. If you have a favorite place to walk, take advantage of that.? Increase safe activities that have always given you pleasure. This may include playing your favorite music, reading a good book, painting a picture, or playing your favorite instrument. Do whatever takes your mind off your depression.? Keep your living space well-lighted.GET HELPContact a suicide hotline, crisis center, or local suicide prevention center for help right away. Local centers may include a hospital, clinic, community service organization, social service provider, or health department.? Call your local emergency services (911 in the [place]).? Call a suicide hotline:? 8-612-039-TALK ( ) in the [place].? 1-941-UZBSYGO ( ) in the [place].? in the [place] for [place]-speaking counselors.? 2-435-727-4TTY ( ) in the [place] for TTY users.? Visit the following websites for information and help:? National Suicide Prevention Lifeline: www.suicidepreventionlifeline .org? Hopeline: www.hopeline.com? [place] [employer] for Suicide Prevention: www.afsp.org? For lesbian, hooks, bisexual, transgender, or questioning youth, contact The New Project:? 1-321-9-U-NEW ( ) in the [place].? www.theTysdovorproject.org? In [place], treatment resources are listed in each province with listings available under [employer] or similar titles. Another source for Crisis Centres by Province is located at http://www.suicideprevention. ca/eb-ccdjcc-uey/ezqd-b-cuiyw d-ftvghw-pef/crisis-centresDo cument Released: 03/23/2004 Document Revised: 12/09/2012 Document Reviewed: 01/12/2015ExitCare? Patient Information ?2015 [employer]. This information is not intended to replace advice given to you by your health care provider. Make sure you discuss any questions you have with your health care provider.SchizophreniaSchizop hrenia is a mental illness. It may cause disturbed or disorganized thinking, speech, or behavior. People with schizophrenia have problems functioning in one or more areas of life: work, school, home, or relationships. People with schizophrenia are at increased risk for suicide, certain chronic physical illnesses, and unhealthy behaviors, such as smoking and drug use.People who have family members with schizophrenia are at higher risk of developing the illness. Schizophrenia affects men and women equally but usually appears at an earlier age (teenage or early adult years) in men. SYMPTOMSThe earliest symptoms are often subtle (prodrome) and may go unnoticed until the illness becomes more severe (first-break psychosis). Symptoms of schizophrenia may be continuous or may come and go in severity. Episodes often are triggered by major life events, such as family stress, college, service, marriage, or child , divorce, or loss of a loved one. People with schizophrenia may see, hear, or feel things that do not exist (hallucinations). They may have false beliefs in spite of obvious proof to the contrary (delusions). Sometimes speech is incoherent or behavior is odd or withdrawn. DIAGNOSISSchizophrenia is diagnosed through an assessment by your caregiver. Your caregiver will ask questions about your thoughts, behavior, mood, and ability to function in daily life. Your caregiver may ask questions about your medical history and use of alcohol or drugs, including prescription medication. Your caregiver may also order blood tests and imaging exams. Certain medical conditions and substances can cause symptoms that resemble schizophrenia. Your caregiver may refer you to a mental health specialist for evaluation. There are three major criterion for a diagnosis of schizophrenia:? Two or more of the following five symptoms are present for a month or longer: ? Delusions. Often the delusions are that you are being attacked, harassed, cheated, persecuted or conspired against (persecutory delusions).? Hallucinations. ?? Disorganized speech that does not make sense to others.? Grossly disorganized (confused or unfocused) behavior or extremely overactive or underactive motor activity (catatonia).? Negative symptoms such as bland or blunted emotions (flat affect), loss of will power (avolition), and withdrawal from social contacts (social isolation).? Level of functioning in one or more major areas of life (work, school, relationships, or self-care) is markedly below the level of functioning before the onset of illness. ?? There are continuous signs of illness (either mild symptoms or decreased level of functioning) for at least 6 months or longer.TREATMENTSchizophrenia is a long-term illness. It is best controlled with continuous treatment rather than treatment only when symptoms occur. The following treatments are used to manage schizophrenia:? Medication?Medication is the most effective and important form of treatment for schizophrenia. Antipsychotic medications are usually prescribed to help manage schizophrenia. Other types of medication may be added to relieve any symptoms that may occur despite the use of antipsychotic medications. ? Counseling or talk therapy?Individual, group, or family counseling may be helpful in providing education, support, and guidance. Many people with schizophrenia also benefit from social skills and job skills (vocational) training.A combination of medication and counseling is best for managing the disorder over time. A procedure in which electricity is applied to the brain through the scalp (electroconvulsive therapy) may be used to treat catatonic schizophrenia or schizophrenia in people who cannot take or do not respond to medication and counseling.Document Released: 09/14/2001 Document Revised: 05/20/2014 Document Reviewed: 12/10/2013ExitCare? Patient Information ?2015 [employer]. This information is not intended to replace advice given to you by your health care provider. Make sure you discuss any questions you have with your health care provider.DepressionDepression is feeling sad, low, down in the dumps, blue, gloomy, or empty. In general, there are two kinds of depression: ? Normal sadness or grief. This can happen after something upsetting. It often goes away on its own within 2 weeks. After losing a loved one (bereavement), normal sadness and grief may last longer than two weeks. It usually gets better with time.? Clinical depression. This kind lasts longer than normal sadness or grief. It keeps you from doing the things you normally do in life. It is often hard to function at home, work, or at school. It may affect your relationships with others. Treatment is often needed. GET HELP RIGHT AWAY IF:? You have thoughts about hurting yourself or others.? You lose touch with reality (psychotic symptoms). You may:? See or hear things that are not real.? Have untrue beliefs about your life or people around you.? Your medicine is giving you problems.MAKE SURE YOU:? Understand these instructions.? Will watch your condition.? Will get help right away if you are not doing well or get worse.Document Released: 10/20/2011 Document Revised: 02/01/2015 Document Reviewed: 01/16/2013ExitCare? Patient Information ?2015 [employer]. This information is not intended to replace advice given to you by your health care provider. Make sure you discuss any questions you have with your health care provider. Normal [facility] ED Patient Summaryon 017 ED Patient Summary (Inserted Image. Silvia ble to display) [place] [id number] Patient Discharge Instructions Person Information Name: CRIS MAGANA Age: 17 Years Date: 07/25/2017 7:07 PMDischarge Diagnosis: Acute depression; Schizophrenia; Suicidal ideation Primary Care Physician: Barbara Mcknight MD Provider InformationPrimary Provider: Kaylie Fernandes DO Tare Worker:Tray Todd PA-C The exam and treatment you received in the Emergency Department were for an urgent problem and are not intended as complete care. It is important that you follow up with a doctor, nurse practitioner, or physician?s housing assistant property manager for ongoing care. If your symptoms become worse or you do not improve as expected and you are unable to reach your usual health care provider, you should return to the Emergency Department. We are available 24 hours a day. CRIS MAGANA has been given the following list of patient education materials, prescriptions and follow-up instructions: Follow-up Instructions:With: Address: When: [facility] In 3 days 07/28/2017 With: Address: When: Barbara Mcknight [address] [facility] [id number] Business (1) In 3 days In the event that this physician does not participate in your insurance network, please consult with your insurance company to find a nearby participating provider. Patient Education Materials:Suicidal Feelings: How to Help Yourself; Schizophrenia; Depression, Adult, Pybq-ns-Cthg Medications Given:Medication Dose Route ibuprofen 600.00 mg Oral Medication Information:Medications to Continue with No ChangesOther Medicationscitalopram (citalopram 20 mg Tab) 1 Tabs By Mouth every day.risperidone (risperidone 1 mg oral tablet) Comment: Pharmacy Information: [facility] Thank you for choosing [facility] Patient Education Materials: Suicidal Feelings, How to Help YourselfEveryone feels sad or unhappy at times, but depressing thoughts and feelings of hopelessness can lead to thoughts of suicide. It can seem as if life is too tough to handle. If you feel as though you have reached the point where suicide is the only answer, it is time to let someone know immediately. HOW TO COPE AND PREVENT SUICIDE? Let family, friends, teachers, or counselors know. Get help. Try not to isolate yourself from those who care about you. Even though you may not feel sociable, talk with someone every day. It is best if it is onnt-nf-xguq. Remember, they will want to help you.? Eat a regularly spaced and well-balanced diet. ? Get plenty of rest. ? Avoid alcohol and drugs because they will only make you feel worse and may also lower your inhibitions. Remove them from the home. If you are thinking of taking an overdose of your prescribed medicines, give your medicines to someone who can give them to you one day at a time. If you are on antidepressants, let your caregiver know of your feelings so he or she can provide a safer medicine, if that is a concern.? Remove weapons or poisons from your home.? Try to stick to routines. Follow a schedule and remind yourself that you have to keep that schedule every day. ? Set some realistic goals and achieve them. Make a list and cross things off as you go. Accomplishments give a sense of worth. Wait until you are feeling better before doing things you find difficult or unpleasant to do.? If you are able, try to start exercising. Even half-hour periods of exercise each day will make you feel better. Getting out in the sun or into nature helps you recover from depression faster. If you have a favorite place to walk, take advantage of that.? Increase safe activities that have always given you pleasure. This may include playing your favorite music, reading a good book, painting a picture, or playing your favorite instrument. Do whatever takes your mind off your depression.? Keep your living space well-lighted.GET HELPContact a suicide hotline, crisis center, or local suicide prevention center for help right away. Local centers may include a hospital, clinic, community service organization, social service provider, or health department.? Call your local emergency services (561 in the [place]).? Call a suicide hotline:? 5-093-077-TALK ( ) in the [facility].? 4-511-QSMXKLY ( ) in the [facility].? in the [place] for [place]-speaking counselors.? 5-220-185-4TTY ( ) in the [place] for TTY users.? Visit the following websites for information and help:? National Suicide Prevention Lifeline: www.suicidepreventionlifeline .org? Hopeline: www.hopeline.com? [place] [employer] for Suicide Prevention: www.afsp.org? For lesbian, hooks, bisexual, transgender, or questioning youth, contact The New Project:? 2-363-9-U-NEW ( ) in the [place].? www.thetrevorproject.org? In [place], treatment resources are listed in each province with listings available under [employer] or similar titles. Another source for Crisis Centres by Province is located at http://www.suicideprevention. ca/rs-mpcnob-mow/oxgi-f-qsixc j-ghsbus-qrv/crisis-centresDo cument Released: 03/23/2004 Document Revised: 12/09/2012 Document Reviewed: 01/12/2015ExitCare? Patient Information ?2015 [employer]. This information is not intended to replace advice given to you by your health care provider. Make sure you discuss any questions you have with your health care provider.SchizophreniaSchizop hrenia is a mental illness. It may cause disturbed or disorganized thinking, speech, or behavior. People with schizophrenia have problems functioning in one or more areas of life: work, school, home, or relationships. People with schizophrenia are at increased risk for suicide, certain chronic physical illnesses, and unhealthy behaviors, such as smoking and drug use.People who have family members with schizophrenia are at higher risk of developing the illness. Schizophrenia affects men and women equally but usually appears at an earlier age (teenage or early adult years) in men. SYMPTOMSThe earliest symptoms are often subtle (prodrome) and may go unnoticed until the illness becomes more severe (first-break psychosis). Symptoms of schizophrenia may be continuous or may come and go in severity. Episodes often are triggered by major life events, such as family stress, college, service, marriage, or child , divorce, or loss of a loved one. People with schizophrenia may see, hear, or feel things that do not exist (hallucinations). They may have false beliefs in spite of obvious proof to the contrary (delusions). Sometimes speech is incoherent or behavior is odd or withdrawn. DIAGNOSISSchizophrenia is diagnosed through an assessment by your caregiver. Your caregiver will ask questions about your thoughts, behavior, mood, and ability to function in daily life. Your caregiver may ask questions about your medical history and use of alcohol or drugs, including prescription medication. Your caregiver may also order blood tests and imaging exams. Certain medical conditions and substances can cause symptoms that resemble schizophrenia. Your caregiver may refer you to a mental health specialist for evaluation. There are three major criterion for a diagnosis of schizophrenia:? Two or more of the following five symptoms are present for a month or longer: ? Delusions. Often the delusions are that you are being attacked, harassed, cheated, persecuted or conspired against (persecutory delusions).? Hallucinations. ?? Disorganized speech that does not make sense to others.? Grossly disorganized (confused or unfocused) behavior or extremely overactive or underactive motor activity (catatonia).? Negative symptoms such as bland or blunted emotions (flat affect), loss of will power (avolition), and withdrawal from social contacts (social isolation).? Level of functioning in one or more major areas of life (work, school, relationships, or self-care) is markedly below the level of functioning before the onset of illness. ?? There are continuous signs of illness (either mild symptoms or decreased level of functioning) for at least 6 months or longer.TREATMENTSchizophrenia is a long-term illness. It is best controlled with continuous treatment rather than treatment only when symptoms occur. The following treatments are used to manage schizophrenia:? Medication?Medication is the most effective and important form of treatment for schizophrenia. Antipsychotic medications are usually prescribed to help manage schizophrenia. Other types of medication may be added to relieve any symptoms that may occur despite the use of antipsychotic medications. ? Counseling or talk therapy?Individual, group, or family counseling may be helpful in providing education, support, and guidance. Many people with schizophrenia also benefit from social skills and job skills (vocational) training.A combination of medication and counseling is best for managing the disorder over time. A procedure in which electricity is applied to the brain through the scalp (electroconvulsive therapy) may be used to treat catatonic schizophrenia or schizophrenia in people who cannot take or do not respond to medication and counseling.Document Released: 09/14/2001 Document Revised: 05/20/2014 Document Reviewed: 12/10/2013ExitCare? Patient Information ?2014 [employer]. This information is not intended to replace advice given to you by your health care provider. Make sure you discuss any questions you have with your health care provider.DepressionDepression is feeling sad, low, down in the dumps, blue, gloomy, or empty. In general, there are two kinds of depression: ? Normal sadness or grief. This can happen after something upsetting. It often goes away on its own within 2 weeks. After losing a loved one (bereavement), normal sadness and grief may last longer than two weeks. It usually gets better with time.? Clinical depression. This kind lasts longer than normal sadness or grief. It keeps you from doing the things you normally do in life. It is often hard to function at home, work, or at school. It may affect your relationships with others. Treatment is often needed. GET HELP RIGHT AWAY IF:? You have thoughts about hurting yourself or others.? You lose touch with reality (psychotic symptoms). You may:? See or hear things that are not real.? Have untrue beliefs about your life or people around you.? Your medicine is giving you problems.MAKE SURE YOU:? Understand these instructions.? Will watch your condition.? Will get help right away if you are not doing well or get worse.Document Released: 10/20/2011 Document Revised: 02/01/2015 Document Reviewed: 01/16/2013ExitCare? Patient Information ?2014 [employer]. This information is not intended to replace advice given to you by your health care provider. Make sure you discuss any questions you have with your health care provider.MATT German ANGELINA M , have received the following patient education materials/instructions and have verbalized understanding: Patient Education Materials: Suicidal Feelings: How to Help Yourself; Schizophrenia; Depression, Adult, [id number] Follow-up Instructions: With: Address: When: [facility] In 3 days 07/28/2017 With: Address: When: Barbara Mcknight [address] [place], [place] [address], [place] [address] Business (1) In 3 days Prescriptions: Patient Signature Date Clinician/Nurse Signature Date 07/25/17 21:31:42 Normal [facility] Ethanolon 07-25-2017 Ethanol mg/dL Normal <=7 [facility] Comment on above: Performed By: #### 2 [id number] ####[facility] [address] [place] [address] Progress Note-Nurseon 2016 Progress Note-Nurse 1929- patient belong ings placed in bag and by nurses station. patient in gown. TASHI Feliz @ bedside. patient states she tried to harm herself today with a knife. when asking patient where she cut herself, patient said i didn't . patient states she tried to harm her caregiver today. caregiver @ bedside and states that is not true. patient asking for food and water. explained to patient that after tests are complete she will be able to eat. verbalizes understanding.1944- laboratory @ bedside. urine specimen sent to [id number]- patient resting in bed with television on. denies any needs.2014- patient resting in bed, caregiver out of room @ this [id number]- pt resting in bed, denies any needs. visible from nurses [id number]- visible from nurses station. denies any [id number]- pt on telephone with P @ this time.2109- provided sandwhich and pepsi per request. vitals assessed and ireywlruvh0727- patient states that P told her she was going to be admitted . TASHI Feliz spoke with P @ this time. they states that patient has a follow up appointment tomorrow and is to be discharged and follow up as before. in room to discharge patient. patient and caregiver verbalize understanding. belongings brought to room. patient dressed and ambulated out of ED. Normal [facility] U Drug Screenon 07-25-2017 AMPHETAMINES:PRTHR: PT:URINE:ORD:SCREEN >1000 NG/ML Negative Normal Negative [facility] Comment on above: Result Comment: Nega tive Cutoff: <1000 ng/mL Performed By: #### 2 [id number] ####[facility] [address] [place] [address] OPIATES:PRTHR:PT:UR INE:ORD:SCREEN Negative Normal Negative [facility] Comment on above: Result Comment: Nega tive Cutoff: <300 ng/mL Performed By: #### 2 [id number] ####[facility] [address] [place] [address] PHENCYCLIDINE:PRTHR :PT:URINE:ORD:SCREE N>25 NG/ML Negative Normal Negative [facility] Comment on above: Result Comment: Nega tive Cutoff: <25 ng/mLThese drug screen results are to be used for medical (i.e., treatment) purposes only. Unconfirmed drug screening results must not be used for non-medical purposes (e.g., employment testing, legal testing). Performed By: #### 2 [id number] ####[facility] [address] [place] [address] TETRAHYDROCANNABINO L:PRTHR:PT:URINE:OR D:SCREEN>50 NG/ML Negative Normal Negative [facility] Comment on above: Result Comment: Nega tive Cutoff: <50 ng/mL Performed By: #### 2 [id number] ####[facility] [address] [place] [address] Urine, barbiturates presence Negative Normal Negative [facility] Comment on above: Result Comment: Nega tive Cutoff: <200 ng/mL Performed By: #### 2 [id number] ####[facility] [address] [place] [address] Urine, benzodiazepines presence Negative Normal Negative [facility] Comment on above: Result Comment: Nega tive Cutoff: <200 ng/mL Performed By: #### 2 [id number] ####[facility] [address] [place] [address] Urine, cocaine presence Negative Normal Negative [facility] Comment on above: Result Comment: Nega tive Cutoff: <300 ng/mL Performed By: #### 2 7276509 ####[facility] [address] [place] [address] Urinalysison 07-25-2017 BACTERIA:PRTHR:PT:U RINE SED:ORD:MICROSCOPY. LIGHT 1+ /HPF Abnormal Trace [facility] Comment on above: Performed By: #### 2 [id number] ####[address] [address] Bilirubin Ql (U) Negative Normal Negative [facility] Comment on above: Performed By: #### 2 [id number] ####[place] [address] COLOR:TYPE:PT:URINE :NOM:AUTO YELLOW Normal Yellow [facility] Comment on above: Performed By: #### 2 [id number] ####[facility] [address] [place] [address] Erythrocytes (RBC) 0-3 Normal 0-3 [facility] Comment on above: Performed By: #### 2 8255503 ####[facility] [address] [place] [address] GLUCOSE:MCNC:PT:URI NE:QN:TEST STRIP Negative Normal Negative [facility] Comment on above: Performed By: #### 2 [id number] ####[facility] [address] [place] [address] KETONES:MCNC:PT:URI NE:QN:TEST STRIP Negative Normal Negative [facility] Comment on above: Performed By: #### 2 9572500 ####[facility] [address] [place] [address] LEUKOCYTES:PRTHR:PT :URINE:ORD:AUTOMATE D Negative Normal Negative [facility] Comment on above: Performed By: #### 2 [id number] ####[facility] [address] [place] [address] UA Spec Desc Clean Catch Normal [facility] Comment on above: Performed By: #### 2 8917533 ####[facility] [address] [place] [address] Urine, clarity CLEAR Normal Clear [facility] Comment on above: Performed By: #### 2 3058852 ####[facility] [address] [place] [address] Urine, hemoglobin presence TRACE Abnormal Negative [facility] Comment on above: Performed By: #### 2 0840372 ####[place] [address] [place] [address] Urine, leukocytes in sedmiment 0-5 Normal 0-5 [facility] Comment on above: Performed By: #### 2 4682451 ####[facility] [address] [place] [address] Urine, mucus presence in sediment TRACE Normal [facility] Comment on above: Performed By: #### 2 4515412 ####[facility] [address]bat[address] [place] [address] Urine, nitrite presence Negative Normal Negative [facility] Comment on above: Performed By: #### 2 7477581 ####[facility] [address] [facility] [place] [address] Urine, pH 6.0 [pH] Invalid Interpretation Code 5.0-9.0 [facility] Comment on above: Performed By: #### 2 5383536 ####[facility] [address]bat[address] [place] [address] Urine, protein Negative Normal Negative [facility] Comment on above: Performed By: #### 2 3884973 ####[facility] [address] [place] [address] Urine, specific gravity 1.025 Invalid Interpretation Code 1.005-1.03 0 [facility] Comment on above: Performed By: #### 2 2823435 ####[place] [address] [place] [address] Urine, squamous cells in sediment 5-8 Normal 0-2 [facility] Comment on above: Performed By: #### 2 6692848 ####[address] [address] Urine, urobilinogen 0.2 {Gretel'U}/dL Normal 0.0-1.0 [facility] Comment on above: Performed By: #### 2 [id number] ####[address] [address] eGFRon 07-25-2017 eGFR (black) mL/min/{1.73_m2} Normal >=59 [facility] Comment on above: Order Comment: Order added by Discern Expert. Result Comment: eGFR is race adjusted. AA=. Performed By: #### 2 0168533 ####[place] [address] eGFR (non-black) mL/min/{1.73_m2} Normal >=59 [facility] Comment on above: Order Comment: Order added by Discern Expert. Result Comment: Organic Extractions Technician jorge kidney disease could be indicated at eGFR's of less than 60 mL/min/1.73m2. Kidney failure is indicated at less than 15 mL/min/1.73m2. Performed By: #### 2 0564109 ####[place] [address] Acetamnphn Lvlon 07-24-2017 Acetaminophen mass conc <10 Low 15-30 [facility] Comment on above: Performed By: #### 2 416966, 5341766, 2762838, 28965425, 0533251, 3578972 ####[address] [address] Auto Diffon 07-24-2017 Basophils Auto #/vol (Bld) 0.0 E9/L Normal 0.0-0.2 [facility] Comment on above: Order Comment: Order Added by Discern Expert. Performed By: #### 2 480615, 0222521, 3789073, 50634955, 7132590, 2979499 ####[facility] [address] [place] [address] Basophils Auto #/vol (Bld) 0.4 % Normal 0.0-2.0 [facility] Comment on above: Order Comment: Order Added by Discern Expert. Performed By: #### 2 728806, 9046680, 7478198, 21995527, 1680625, 6186113 ####[facility] [address] [place] [address] Eosinophils 0.1 E9/L Normal 0.0-0.5 [facility] Comment on above: Order Comment: Order Added by Discern Expert. Performed By: #### 2 290607, 2909438, 5260983, 84809060, 4599670, 4183726 ####[address] [address] Eosinophils/100 leukocytes 0.8 % Normal 0.0-8.0 [facility] Comment on above: Order Comment: Order Added by Discern Expert. Performed By: #### 2 421124, 0562420, 3507465, 70461409, 4365674, 2466924 ####[place] [address] [place] [address] Lymphocytes 3.6 E9/L Normal 1.0-4.0 [facility] Comment on above: Order Comment: Order Added by Discern Expert. Performed By: #### 2 179119, 3000701, 4043852, 41487475, 8383409, 7645494 ####[facility] [address] [place] [address] Lymphocytes/100 leukocytes 35.5 % Normal 14.0-50.0 [facility] Comment on above: Order Comment: Order Added by Discern Expert. Performed By: #### 2 283416, 9825247, 2697913, 83703332, 1081087, 2536045 ####[facility] [address] [place] [address] Monocytes 0.6 E9/L Normal 0.2-1.0 [facility] Comment on above: Order Comment: Order Added by Discern Expert. Performed By: #### 2 509676, 8917422, 8358806, 59329921, 7443815, 7955182 ####[facility] [address] [place] [address] Monocytes/100 leukocytes 6.2 % Normal 4.0-14.0 [facility] Comment on above: Order Comment: Order Added by Discern Expert. Performed By: #### 2 273264, 1195436, 3726481, 47430611, 5497842, 4000777 ####[place] [address] [place] [address] Neutrophils 5.7 E9/L Normal 2.0-7.5 [facility] Comment on above: Order Comment: Order Added by Nita Expert. Performed By: #### 2 161543, 5662499, 0397898, 82204960, 6550945, 9036483 ####[address] [address] Neutrophils/100 leukocytes 57.1 % Normal 36.0-75.0 [facility] Comment on above: Order Comment: Order Added by Discern Expert. Performed By: #### 2 706039, 2778485, 7949690, 19221172, 7516319, 6724158 ####[place] [address] [place] [address] CBC w/ Auto Diffon 7 Erythrocyte distribution width Auto Ratio (RBC) 12.9 % Normal 10.9-14.2 [facility] Comment on above: Performed By: #### 2 359827, 1679825, 1066550, 99955842, 5917120, 5033704 ####[place] [address] [place] [address] Erythrocytes (RBC) 5.0 E12/L Normal 4.3-5.9 [facility] Comment on above: Performed By: #### 2 057753, 5734645, 5479567, 75532095, 0402346, 0606187 ####[facility] [address] [place] [address] Hematocrit (HCT) 42.4 % Normal 34.0-46.0 [facility] Comment on above: Performed By: #### 2 920074, 0691273, 5414649, 27636652, 7805414, 4039205 ####[place] [address] [place] [address] Hemoglobin mass conc (Bld) 14.7 g/dL Normal 12.0-16.0 [facility] Comment on above: Performed By: #### 2 805087, 4213073, 0597333, 52271413, 8206983, 8581567 ####[place] [address] MCH 29.2 pg Normal 27.0-34.0 [facility] Comment on above: Performed By: #### 2 907498, 3363915, 4924449, 31070167, 8546198, 7266642 ####[place] [address] MCHC mass conc (RBC) 34.6 g/dL Normal 31.4-39.3 [facility] Comment on above: Performed By: #### 2 511247, 0358696, 8635329, 17120866, 1623335, 1645470 ####[place] [address] MCV 84.4 fL Normal 80.0-100.0 [facility] Comment on above: Performed By: #### 2 064326, 3815689, 9230342, 45381693, 9090952, 1385860 ####[place] [address] [place] [address]057 Platelet mean volume (PMV) 7.8 fL Normal 6.4-10.8 [facility] Comment on above: Performed By: #### 2 393985, 9324951, 9908328, 81007824, 1828083, 5850423 ####[address] [place] [address] Platelets 288.0 E9/L Normal 150.0-500. 0 [facility] Comment on above: Performed By: #### 2 878589, 3000131, 0898091, 26131509, 6411136, 1595800 ####[address] [address] WBC (Leukocytes) 10.1 E9/L Normal 4.0-11.0 [facility] Comment on above: Performed By: #### 2 517453, 5773438, 9036438, 26568546, 0633644, 1566092 ####[address] [address] CMPon 07-24-2017 Alanine aminotransferase (ALT) 27 Int._Unit/L Normal 6-46 [facility] Comment on above: Performed By: #### 2 223052, 3722036, 3938835, 17301243, 7363177, 7930373 ####[address] [address] Albumin 1.1 g/dL Normal 1.1-2.2 [facility] Comment on above: Performed By: #### 2 780570, 2135181, 3785308, 34359384, 9168742, 5474937 ####[address] [address] Albumin 4.0 g/dL Normal 3.3-5.0 [facility] Comment on above: Performed By: #### 2 601780, 9929876, 0930507, 71963046, 9007104, 1139743 ####[place] [address] [place] [address] Alkaline phosphatase (ALP) 82 Int._Unit/L Normal 21-98 [facility] Comment on above: Performed By: #### 2 260525, 0903956, 4062510, 27398675, 2994017, 4408630 ####[place] [address] Aspartate aminotransferase (AST) 23 Int._Unit/L Normal 5-43 [facility] Comment on above: Performed By: #### 2 289305, 0944983, 8269813, 44547670, 5587368, 8416052 ####[facility] [address] [place] [address] Bilirubin (total) 0.4 mg/dL Normal 0.0-1.1 [facility] Comment on above: Performed By: #### 2 728561, 8291052, 2565325, 90644672, 2224072, 4313441 ####[facility] [address] [place] [address] BUN/Creatinine Ratio 16 No Units Normal 10-20 [facility] Comment on above: Performed By: #### 2 572889, 3750937, 0224249, 42675592, 8128967, 5144452 ####[facility] [address] [place] [address] Creatinine 0.8 mg/dL Normal 0.5-1.3 [facility] Comment on above: Performed By: #### 2 539415, 2607246, 4446563, 30381596, 5741318, 0787758 ####[facility] [address] [place] [address] Globulin 3.5 g/dL Normal 1.4-4.0 [facility] Comment on above: Performed By: #### 2 497630, 6535658, 6146255, 29813000, 9663031, 1655446 ####[facility] [address] [place] [address] Protein 7.5 g/dL Normal 6.0-7.8 [facility] Comment on above: Performed By: #### 2 759275, 1302515, 7503768, 99483700, 2237362, 1302779 ####[facility] [address] [place] [address] Urea nitrogen 13 mg/dL Normal 5-21 [facility] Comment on above: Performed By: #### 2 366322, 1003032, 9288985, 89721996, 7601085, 9344599 ####[facility] [address] [place] [address] Anion gap 13 mmol/L Normal 6-16 [facility] Comment on above: Performed By: #### 2 045077, 1968809, 1472717, 69746720, 2954552, 8853945 ####[facility] [address] [place] [address] Calcium 8.8 mg/dL Low 8.9-11.1 [facility] Comment on above: Performed By: #### 2 983274, 5753173, 5127491, 03840200, 6810466, 1983941 ####[facility] [address] [place] [address] Chloride 101 mmol/L Normal 101-111 [facility] Comment on above: Performed By: #### 2 272297, 5234363, 5663334, 14305001, 6703644, 6913132 ####[facility] [address] [place] [address] CO2 25 mmol/L Normal 21-31 [facility] Comment on above: Performed By: #### 2 644855, 9723344, 1135592, 19599545, 6345094, 5767461 ####[facility] [address] [place] [address] Glucose mass conc 143 mg/dL Normal 55-199 [facility] Comment on above: Result Comment: If t his glucose result represents a fasting glucose, interpretation should refer to the following reference range: 55-99 mg/dL Performed By: #### 2 813445, 7349165, 7679900, 89880393, 3925087, 6199579 ####[facility] [address] [place] [address] Potassium molar conc 3.3 mmol/L Low 3.5-5.3 [facility] Comment on above: Performed By: #### 2 273648, 4535069, 3237801, 60453556, 9550953, 2465551 ####[facility] [address] [place] [address] Sodium 136 mmol/L Normal 135-145 [facility] Comment on above: Performed By: #### 2 121930, 3280322, 5301601, 85029312, 5732210, 8990856 ####[facility] [address] [place] [address] ED Clinical Summaryon 2016 ED Clinical Summary (Inserted Image. Silvia ble to display) [address] [address] ED Clinical SummaryPerson Information Name: CRIS MAGANA/HarlanDemetris Age: 17 Years : 2000 12:00 AM Sex: Female Language:Italian PCP: Barbara Mcknight MD Marital Status:Single Visit Id: Visit Reason:Suicidal thoughts; Suicidal ideation; PSYCH EVAL Speciality: Acuity: 2 Enc Type: Emergency Med Service: Emergency Arrival:07/24/2017 2:23 PM Discharge: 07/24/2017 5:10 PM LOS: 000 02:47 Checkin:07/24/2017 2:23 PM Checkout: 07/24/2017 5:10 PM Dispo Type: Home (Routine DC) EVENTS:Event Name Event Status Request Date/Time Start Date/Time Complete Date/Time Arrive Complete 07/24/2017 2:23 PM 07/24/2017 2:23 PM 07/24/2017 2:23 PM Document Home Meds Request 07/24/2017 2:23 PM Triage Complete 07/24/2017 2:23 PM 07/24/2017 2:33 PM 07/24/2017 2:33 PM Bed Assign Complete 07/24/2017 2:23 PM 07/24/2017 2:23 PM 07/24/2017 2:[address] Exam Complete 07/24/2017 2:23 PM 07/24/2017 2:24 PM 07/24/2017 2:24 PM RN Exam Complete 07/24/2017 2:23 PM 07/24/2017 2:38 PM 07/24/2017 2:38 PM Registration Complete 07/24/2017 2:24 PM 07/24/2017 3:00 PM 07/24/2017 3:[address] Exam Complete 07/24/2017 2:24 PM 07/24/2017 2:24 PM 07/24/2017 2:24 PM Pending Labs Complete 07/24/2017 2:25 PM 07/24/2017 3:29 PM Lab Complete 07/24/2017 2:25 PM 07/24/2017 3:29 PM Urine Collect Complete 07/24/2017 2:25 PM 07/24/2017 3:29 PM Patient Care Request 07/24/2017 2:25 PM Consult Request 07/24/2017 2:33 PM Pending Labs Complete 07/24/2017 2:43 PM 07/24/2017 2:43 PM 07/24/2017 3:00 PM Lab Complete 07/24/2017 2:43 PM 07/24/2017 2:43 PM 07/24/2017 3:00 PM Pending Labs Complete 07/24/2017 2:53 PM 07/24/2017 2:53 PM 07/24/2017 2:53 PM Lab Complete 07/24/2017 2:53 PM 07/24/2017 2:53 PM 07/24/2017 2:53 PM Reg Complete Request 07/24/2017 3:00 PM Reg Bed Request Complete 07/24/2017 3:00 PM 07/24/2017 3:00 PM 07/24/2017 3:00 PM Pending Labs Complete 07/24/2017 3:03 PM 07/24/2017 3:03 PM 07/24/2017 3:03 PM Discharge Complete 07/24/2017 4:53 PM 07/24/2017 5:10 PM 07/24/2017 5:10 PM Transfer Complete 07/24/2017 5:10 PM 07/24/2017 5:10 PM 07/24/2017 5:10 PM ADDRESS:[address] [place] [id number] [facility] NOTES: MEDICAL INFORMATION: Prescriptions Given:PATIENT EDUCATION INFORMATION: Instructions:Depression, Adult, [id number] Follow up:With: Address: When: Barbara Mcknight [address] [place] [address] [address], [place] [address] Business (1) In 3 days 07/27/2017 Comments: Follow-up as an outpatient with your psychiatrist as directed by mental services.The patient was advised to return to the ER immediately if symptoms worsen, problems arise, or any other issues develop. Ensure that you follow up as directed. Patient is released with her guardian/grandmother. DIAGNOSIS:Anxiety; Depression; Hx of schizophrenia [facility] ED Note-Nursingon 07-24-2017 ED Note-Nursing Patient and grandmot her given discharge instructions at this time. Patient and grandmother instructed on importance of following up with her counceling appt on at 7pm. Grandmother states she is aware of the importance of her attending as well. All belongings returned. [facility] ED Note-Nursing Patient sitting up i n bed, needs denied currently. [facility] ED Note-Nursing Spoke with MHP, pt i s denying suicidal complaints at this time. Pts grandmother notified by MHP to come get her. Pt has a counseling session with current MHP on and Grandmother and careproviders are instructed they are all supposed to come to counseling session. [facility] ED Note-Nursing MHP leaves room, upd ated on pt. This RN enters room and asks how shes doing, pt states, i cant breathe. Pt questioned why. And she states, I just want to talk to my grandma. Pt informed that MHP is attempted to get ahold of her at this time. Pt states she understands. Pt informed to just wait and see what the plan is at this time. Pt states she understands and denies further needs currently. [facility] ED Note-Nursing MHP in room with maria l vásquez at this time. [facility] ED Note-Nursing Patient awake, eatin g at this time. Suicide precatuions remain in place. [facility] ED Note-Nursing Patient given a sand wich and chips at this time as well as a faustino mist upon request. Pt remains in view with suicide precautions in place. [facility] ED Note-Nursing Patient resting in b ed at this time, within nursing view. [facility] ED Note-Nursing Pts clothing all rem miguelina and to the nurses desk. Pt assisted up to bathroom and back to bed, Urine sample obtained and sent to lab. Patient within this RN's view and monitored. Normal [facility] ED Note-Nursing During patient's ass essment pt states, I know why I'm here. I didnt get my way. Pt asked to elaborate. Pt states, I just wanted my phone back and my grandma wouldnt, so i said this. Pt questioned if she was really wanting to kill herself and she states, No, I just want to go home and I want some food. Pt informed if she just did this to get her way, it was very innappropriate and pt states, So, can I just go home now. Normal [facility] ED Patient Education Noteon 07-24-2017 ED Patient Education Note Patient Education Materials Follows:to-ReadDepressionDepr ession is feeling sad, low, down in the dumps, blue, gloomy, or empty. In general, there are two kinds of depression: ? Normal sadness or grief. This can happen after something upsetting. It often goes away on its own within 2 weeks. After losing a loved one (bereavement), normal sadness and grief may last longer than two weeks. It usually gets better with time.? Clinical depression. This kind lasts longer than normal sadness or grief. It keeps you from doing the things you normally do in life. It is often hard to function at home, work, or at school. It may affect your relationships with others. Treatment is often needed. GET HELP RIGHT AWAY IF:? You have thoughts about hurting yourself or others.? You lose touch with reality (psychotic symptoms). You may:? See or hear things that are not real.? Have untrue beliefs about your life or people around you.? Your medicine is giving you problems.MAKE SURE YOU:? Understand these instructions.? Will watch your condition.? Will get help right away if you are not doing well or get worse.Document Released: 10/20/2011 Document Revised: 02/01/2015 Document Reviewed: 01/16/2013ExitCare? Patient Information ?2015 [employer]. This information is not intended to replace advice given to you by your health care provider. Make sure you discuss any questions you have with your health care provider. Normal [facility] ED Patient Summaryon 017 ED Patient Summary (Inserted Image. Silvia ble to display) [place] [id number] Patient Discharge Instructions Person Information Name: CRIS MAGANA Age: 17 Years Date: 07/24/2017 2:23 PMDischarge Diagnosis: Anxiety; Depression; Hx of schizophrenia Primary Care Physician: Barbara Mcknight MD Provider InformationPrimary Provider: Kaylie Fernandes DO Tare Worker:None The exam and treatment you received in the Emergency Department were for an urgent problem and are not intended as complete care. It is important that you follow up with a doctor, nurse practitioner, or physician?s housing assistant property manager for ongoing care. If your symptoms become worse or you do not improve as expected and you are unable to reach your usual health care provider, you should return to the Emergency Department. We are available 24 hours a day. CRIS MAGANA has been given the following list of patient education materials, prescriptions and follow-up instructions: Follow-up Instructions:With: Address: When: Barbara Mcknight [address] [place] [address] [address] [address] Business (1) In 3 days 07/27/2017 Comments: Follow-up as an outpatient with your psychiatrist as directed by mental services.The patient was advised to return to the ER immediately if symptoms worsen, problems arise, or any other issues develop. Ensure that you follow up as directed. Patient is released with her guardian/grandmother. In the event that this physician does not participate in your insurance network, please consult with your insurance company to find a nearby participating provider. Patient Education Materials:Depression, Adult, Dqve-ct-Dosm Medications Given:Medication Dose Route No medications found. Medication Information:Medications to Continue with No ChangesOther Medicationscitalopram (citalopram 20 mg Tab) 1 Tabs By Mouth every day.risperidone (risperidone 1 mg oral tablet) Comment: Pharmacy Information: [facility] Thank you for choosing [facility] Patient Education Materials: DepressionDepression is feeling sad, low, down in the dumps, blue, gloomy, or empty. In general, there are two kinds of depression: ? Normal sadness or grief. This can happen after something upsetting. It often goes away on its own within 2 weeks. After losing a loved one (bereavement), normal sadness and grief may last longer than two weeks. It usually gets better with time.? Clinical depression. This kind lasts longer than normal sadness or grief. It keeps you from doing the things you normally do in life. It is often hard to function at home, work, or at school. It may affect your relationships with others. Treatment is often needed. GET HELP RIGHT AWAY IF:? You have thoughts about hurting yourself or others.? You lose touch with reality (psychotic symptoms). You may:? See or hear things that are not real.? Have untrue beliefs about your life or people around you.? Your medicine is giving you problems.MAKE SURE YOU:? Understand these instructions.? Will watch your condition.? Will get help right away if you are not doing well or get worse.Document Released: 10/20/2011 Document Revised: 02/01/2015 Document Reviewed: 01/16/2013ExitCare? Patient Information ?2014 [employer]. This information is not intended to replace advice given to you by your health care provider. Make sure you discuss any questions you have with your health care provider.MATT German ANGELINA M , have received the following patient education materials/instructions and have verbalized understanding: Patient Education Materials: Depression, Adult, Hxua-uk-Qafu Follow-up Instructions: With: Address: When: Barbara Mcknight [address] [place], [place] [address], [place] [address] Business (1) In 3 days 07/27/2017 Comments: Follow-up as an outpatient with your psychiatrist as directed by mental services.The patient was advised to return to the ER immediately if symptoms worsen, problems arise, or any other issues develop. Ensure that you follow up as directed. Patient is released with her guardian/grandmother. Prescriptions: Patient Signature Date Clinician/Nurse Signature Date 07/24/17 17:10:44 Normal [facility] Ethanolon 07-24-2017 Ethanol mg/dL Normal <=7 [facility] Comment on above: Performed By: #### 2 [id number], [id number], [id number], [id number], [id number], [id number] ####[facility] [address] [place] [address] Pre-Arrival Noteon 7 Pre-Arrival Note Pre-Arrival SummaryN valeria: , Current Date: 07/24/2017 14:24:04 EDTGender: FemaleDate of : Age: 17Pre-Arrival Type: EMSETA[facility]24[facility]2017 14[facility]45[facility] Physician: Presenting Problem: psych evalPre-Arrival User: Iliana Chavis RN Source: Location: [facility] Date/Time: 07/24/17 14:16:00[facility] Emergency Department Pre-Hospital Report Form Vital Signs: call was for a fall with a broken leg, on squads arrival up walking and squad states psych evaluation wants to kill herself and her grandmother, vss,Pre-Hospital Report: Treatment in Route: Response to Treatment: Misc. Issues: Normal [facility] Salicylateon 07-24-2017 Salicylates mg/dL Low 6-29 [facility] Comment on above: Performed By: #### 2 [id number], [id number], [id number], [id number], [id number], [id number] ####[facility] [address] [place] [address] U BetaHcg Qualon 07-24-2017 CHORIOGONADOTROPIN. BETA SUBUNIT:SCNC:PT:URI NE:QN: Negative Normal [facility] Comment on above: Performed By: #### 2 [id number], 3605022, 5293656, [id number], 5259145, 5060639 ####[facility] [address] [place], [place] [address] U Drug Screenon 07-24-2017 AMPHETAMINES:PRTHR: PT:URINE:ORD:SCREEN >1000 NG/ML Negative Normal Negative [facility] Comment on above: Result Comment: Nega tive Cutoff: <1000 ng/mL Performed By: #### 2 594783, 3238226, 3739646, [id number], 8568436, [id number] ####[facility] [address] [place] [id number] OPIATES:PRTHR:PT:UR INE:ORD:SCREEN Negative Normal Negative [facility] Comment on above: Result Comment: Nega tive Cutoff: <300 ng/mL Performed By: #### 2 889126, 5440407, 2744250, [id number], 7928405, 1021050 ####[facility] [address] [place] [address] PHENCYCLIDINE:PRTHR :PT:URINE:ORD:SCREE N>25 NG/ML Negative Normal Negative [facility] Comment on above: Result Comment: Nega tive Cutoff: <25 ng/mLThese drug screen results are to be used for medical (i.e., treatment) purposes only. Unconfirmed drug screening results must not be used for non-medical purposes (e.g., employment testing, legal testing). Performed By: #### 2 152863, 5109826, 6609048, 66970822, 0746060, [id number] ####[facility] [address] [place] [address] TETRAHYDROCANNABINO L:PRTHR:PT:URINE:OR D:SCREEN>50 NG/ML Negative Normal Negative [facility] Comment on above: Result Comment: Nega tive Cutoff: <50 ng/mL Performed By: #### 2 032500, 4564943, 5733795, 20705194, 5743717, 2604824 ####[facility] [address] [place] [address] Urine, barbiturates presence Negative Normal Negative [facility] Comment on above: Result Comment: Nega tive Cutoff: <200 ng/mL Performed By: #### 2 565633, 0483115, 7953360, 60620387, 5764332, 6449780 ####[facility] [address] [place] [address] Urine, benzodiazepines presence Negative Normal Negative [facility] Comment on above: Result Comment: Nega tive Cutoff: <200 ng/mL Performed By: #### 2 094862, 2759978, 1120795, 43003569, 4047081, 8612027 ####[facility] [address] [place] [address] Urine, cocaine presence Negative Normal Negative [facility] Comment on above: Result Comment: Nega tive Cutoff: <300 ng/mL Performed By: #### 2 909748, 6212649, 2907356, 37450272, 4363087, 9983220 ####[facility] [address] [place] [address] eGFRon 07-24-2017 eGFR (black) mL/min/{1.73_m2} Normal >=59 [facility] Comment on above: Order Comment: Order added by Discern Expert. Result Comment: eGFR is race adjusted. AA=. Performed By: #### 2 331134, 1389341, 9007780, 39414451, 9826253, 1315036 ####[facility] [address] [place] [address] eGFR (non-black) mL/min/{1.73_m2} Normal >=59 [facility] Comment on above: Order Comment: Order added by Discern Expert. Result Comment: Organic Extractions Technician jorge kidney disease could be indicated at eGFR's of less than 60 mL/min/1.73m2. Kidney failure is indicated at less than 15 mL/min/1.73m2. Performed By: #### 2 782832, 3872640, 7931581, 07610349, 3906900, 2289313 ####[facility] [address] [place] [address] C Urineon 07-17-2017 Urine culture, bacteria MicrobiologyPROCEDURE: Urine Culture [R1] U CleanCatch BODY SITE:COLLECTED DATE/TIME: 07/14/2017 20:45 EDT RECEIVED DATE/TIME: 07/15/2017 03:41 EDTSTART DATE/TIME: 07/15/2017 03:41 EDT FREE TEXT SOURCE:Herberth MEDINA, Ryan Kevin MD, RyanFINAL REPORTSFinal Report [] Verified Date/Time: 07/17/2017 11:36 EDT<10,000 cfu/ml Mixed skin contaminantsPerforming LocationsR1: This test was performed at: [facility], [address] [place] [address], [address] , [facility] Comment on above: Performed By: #### 2 630238, 1067026, 6942135, 04889158, 4435688, 8171624 ####[facility] [address] [place] [address] Coding Summary.on 07-16-2017 Coding Summary. CODING DATE: 017 FINAL [facility] STATUS: [facility] PAYOR: Medicaid EAPG DESCRIPTION 0401 LEVEL II CHEMISTRY TESTS 0457 VENIPUNCTURE 0408 LEVEL I HEMATOLOGY TESTS 0405 THERAPEUTIC DRUG MONITORING 0403 ORGAN OR DISEASE ORIENTED PANELS 0999 UNASSIGNED 0396 LEVEL I MICROBIOLOGY TESTS 0826 ACUTE ANXIETY & DELIRIUM STATES ADMIT DX: REASON FOR VISIT DX: R45.851 Suicidal ideations FINAL DX: PRINCIPAL: R45.851 Suicidal ideations SECONDARY: R45.850 Homicidal ideations F17.210 Nicotine dependence, cigarettes, uncomplicated PYMT PROC EAPG STAT DESCRIPTION DOCTOR NAME DATE NOTE: The code number assigned matches the documented diagnosis and / or procedure in the patient's chart. However, the narrative phrase printed from the coding software may appear abbreviated, or result in slightly different terminology. Revised Coded By: Araceli Resendez Revised Date Saved: 07/16/2017 01:00 pm Normal [facility] ED Clinical Summaryon 2016 ED Clinical Summary (Inserted Image. Silvia ble to display) [place] [address] ED Clinical SummaryPerson Information Name: CRIS MAGANA/Eitan Age: 17 Years : 2000 12:00 AM Sex: Female Language:Italian PCP: Barbara Mcknight MD Marital Status:Single Visit Id: Visit Reason:Homicidal ideation; Suicidal thoughts; SUICIDAL THOUGHTS Speciality: Acuity: 2 Enc Type: Emergency Med Service: Emergency Arrival:07/14/2017 8:04 PM Discharge: 07/15/2017 3:02 AM LOS: 000 06:58 Checkin:07/14/2017 8:04 PM Checkout: 07/15/2017 3:02 AM [facility] EVENTS:Event Name Event Status Request Date/Time Start Date/Time Complete Date/Time Arrive Complete 07/14/2017 8:04 PM 07/14/2017 8:04 PM 07/14/2017 8:04 PM Document Home Meds Complete 07/14/2017 8:04 PM 07/14/2017 8:56 PM 07/14/2017 8:56 PM Triage Complete 07/14/2017 8:04 PM 07/14/2017 8:27 PM 07/14/2017 8:27 PM No Visitors Request 07/14/2017 8:05 PM Bed Assign Complete 07/14/2017 8:27 PM 07/14/2017 8:27 PM 07/14/2017 8:[address] Exam Complete 07/14/2017 8:27 PM 07/14/2017 8:49 PM 07/14/2017 8:49 PM RN Exam Complete 07/14/2017 8:27 PM 07/14/2017 8:55 PM 07/14/2017 8:55 PM Consult Request 07/14/2017 8:43 PM Pending Labs Complete 07/14/2017 8:43 PM 07/14/2017 9:46 PM Lab Complete 07/14/2017 8:43 PM 07/14/2017 9:46 PM Urine Collect Complete 07/14/2017 8:43 PM 07/14/2017 9:12 PM Patient Care Request 07/14/2017 8:43 PM Registration Complete 07/14/2017 8:49 PM 07/14/2017 10:04 PM 07/14/2017 10:04 PM Pending Labs Complete 07/14/2017 9:26 PM 07/14/2017 9:26 PM 07/14/2017 9:46 PM Lab Complete 07/14/2017 9:26 PM 07/14/2017 9:26 PM 07/14/2017 9:46 PM Pending Labs Complete 07/14/2017 9:30 PM 07/14/2017 9:30 PM 07/14/2017 9:31 PM Lab Complete 07/14/2017 9:30 PM 07/14/2017 9:30 PM 07/14/2017 9:[address] Exam Complete 07/14/2017 9:56 PM 07/14/2017 9:56 PM 07/14/2017 9:56 PM Reg Complete Request 07/14/2017 10:04 PM Reg Bed Request Complete 07/14/2017 10:04 PM 07/14/2017 10:04 PM 07/14/2017 10:04 PM Patient Care Request 07/14/2017 10:58 PM Transfer Complete 07/14/2017 10:58 PM 07/15/2017 3:02 AM 07/15/2017 3:02 AM Pending Labs Complete 07/15/2017 12:20 AM 07/15/2017 12:32 AM Lab Complete 07/15/2017 12:20 AM 07/15/2017 12:32 AM Urine Collect Complete 07/15/2017 12:20 AM 07/15/2017 12:32 AM Pending Labs Collected 07/15/2017 12:24 AM 07/15/2017 12:24 AM Lab Collected 07/15/2017 12:24 AM 07/15/2017 12:24 AM Meds Admin Complete 07/15/2017 12:50 AM 07/15/2017 12:53 AM Pending Labs Complete 07/15/2017 1:05 AM 07/15/2017 1:05 AM 07/15/2017 1:05 AM Discharge Complete 07/15/2017 3:02 AM 07/15/2017 3:02 AM 07/15/2017 3:02 AM ADDRESS:[address] [place] [id number] PHYS DOC NOTES: Patient: CRIS MAGANA Age: 17 years Sex: Female : 2000 Associated Diagnoses: None Author: Ryan Kevin MD Basic Information Time seen: Date & time 07/14/17 20:29:00. History source: Patient, police. Arrival mode: Police. History limitation: None. Additional information: Chief Complaint from Nursing Triage Note : Chief Complaint 07/14/2017 20:22 EDT Chief Complaint pt states suicidal and homicidal thoughts for 3 days, states plan to kill herself and my grandma and my provider with a knife has had the knife in her hand. states i have not been fed in days brought to ED per [place] PD officer Blake . History of Present Illness 17-year-old white female presents back to the emergency room with thoughts of wanting to harm herself she lives in a assisted living type long-term and was found with a knife in her possession. Patient claims that there is no one there tonight to take care of her and she is feeling suicidal. Patient has been seen by myself as well as other practitioners in the recent past. She is cooperative tonight she does not want to harm anyone other than herself. Review of Systems Constitutional symptoms: Negative except as documented in HPI. Skin symptoms: Negative except as documented in HPI. Eye symptoms: Negative except as documented in HPI. ENMT symptoms: Negative except as documented in HPI. Respiratory symptoms: Negative except as documented in HPI. Cardiovascular symptoms: Negative except as documented in HPI. Gastrointestinal symptoms: Negative except as documented in HPI. Genitourinary symptoms: Negative except as documented in HPI. Musculoskeletal symptoms: Negative except as documented in HPI. Neurologic symptoms: Negative except as documented in HPI. Psychiatric symptoms: Depression, Suicidal ideation. Endocrine symptoms: Negative except as documented in HPI. Hematologic/Lymphatic symptoms: Negative except as documented in HPI. Allergy/immunologic symptoms: Negative except as documented in HPI. Additional review of systems information: All other systems reviewed and otherwise negative, All systems reviewed as documented in chart. Health Status Allergies: Allergic Reactions (Selected)Severity Not DocumentedBee Stings- Sob.. Medications: (Selected) Documented MedicationsDocumentedcitalopr am 20 mg Tab: 20 mg = 1 tab(s), Oral, Daily, Refills(s) 0risperidone 1 mg oral tablet: Refills(s) 0. Past Medical/ Family/ Social History Medical history: ResolvedDiabetes ([id number]): Resolved.Suicidal plans ([id number]): Resolved.. Surgical history: None ([id number]).. Family history: No family history items have been selected or recorded.. Social history: Social & Psychosocial HabitsAlcohol Comment: rich. - 06/10/2017 18:11 - Kathy Vasquez RN01/20/2017 Risk Assessment: Denies Alcohol Use07/02/2017 Frequency: DailySubstance Abuse Comment: rich. - 06/10/2017 18:11 - Kathy Vasquez RN N001/20/2017 Risk Assessment: Denies Substance AbuseTobacco Comment: smokes 2 ppd. - 06/10/2017 18:11 - Kathy Vasquez RN N001/20/2017 Risk Assessment: Denies Tobacco Use. Physical Examination Vital Signs Vital Signs 07/14/2017 21:33 EDT Nursing Progress Note Reason Other: resting in bed. lights dimmed. 07/14/2017 21:17 EDT Nursing Progress Note Reason Other: labs being drawn 07/14/2017 21:00 EDT Nursing Progress Note Reason Other: resting in bed. lights dimmed. in view of nurses 07/14/2017 20:45 EDT Nursing Progress Note Reason Other: pt eating at bedside. 07/14/2017 20:22 EDT Temperature Oral 36.3 DegC Peripheral Pulse Rate 100 bpm Respiratory Rate 20 br/min Systolic Blood Pressure 137 mmHg Diastolic Blood Pressure 79 mmHg SpO2 97 % . Measurements 07/14/2017 20:22 EDT Weight Measured 129.4 kg . Basic Oxygen Information 07/14/2017 20:22 EDT SpO2 97 % Oxygen Therapy Room air . General: Alert, no acute distress, anxious, Not ill-appearing, Skin: Warm, dry, no rash. Head: Normocephalic, atraumatic. Neck: Supple, no tenderness. Eye: Pupils are equal, round and reactive to light, extraocular movements are intact, normal conjunctiva, vision unchanged. Ears, nose, mouth and throat: Oral mucosa moist, no pharyngeal erythema or exudate. Cardiovascular: Regular rate and rhythm, No murmur, Normal peripheral perfusion, No edema. Respiratory: Lungs are clear to auscultation, respirations are non-labored, breath sounds are equal, Symmetrical chest wall expansion. Chest wall: No tenderness, No deformity. Back: Nontender, Normal range of motion. Musculoskeletal: Normal ROM, normal strength. Gastrointestinal: Soft, Nontender, Non distended, Normal bowel sounds, No organomegaly. Genitourinary: No tenderness. Neurological: Alert and oriented to person, place, time, and situation, No focal neurological deficit observed, normal sensory observed, normal motor observed, normal speech observed. Lymphatics Psychiatric: Cooperative, Mood and affect: Depressed, flat. Medical Decision Making Differential Diagnosis: Anxiety, depression, suicide risk, schizophrenia, bipolar disorder, hallucination, psychosis. Rationale: Patient is very cooperative. And quiet tonight she is resting well waiting for lab results and evaluation by MHP. Documents reviewed: Emergency department nurses' notes. Orders Launch Order Profile (Selected) Inpatient OrdersOrderedCipro 250 mg Tab: 250 mg = 1 tab(s), Tab, Oral, Once, Stop date 07/15/17 0:49:00 EDT, STAT, Start date 07/15/17 0:49:00 EDTPrescriptionsPrescribedCip ro 250 mg Tab: 250 mg = 1 tab(s), Oral, q12hr, # 14 tab(s), Refills(s) 0. Impression and Plan Diagnosis Suicide ideation ([id number] R45.851, Discharge, Medical) Complaint of Suicidal thoughts (PNED [id number], Reason For Visit, Emergency medicine, Medical) Calls-Consults - MHP, consult, recommends The mental health professional is familiar with the patient. She interviewed the patient and the patient's clerical and office support workers. Everybody is in agreement that the patient will benefit from inpatient evaluation and treatment.. Plan Condition: Guarded. Disposition: Transfer to other location: [facility] name[facility], Patient care transitioned to: Time: 07/14/17 21:59:00, Ryan Kevin MD, Patient has been accepted by Dr. Jean Paul Gardner. Notes: Dr Kevin has been informed about evaluation and treatment of patient during this visit.This report was transcribed using voice recognition software. Every effort was made to ensure accuracy, however, inadvertently computerized hydropulper mistakes may be present.Patient was treated and evaluated by the physician housing assistant property manager. The attending physician was in the emergency department at all times and supervised care. The case was discussed with the attending physician and diagnostics were reviewed as needed. MEDICAL INFORMATION: Prescriptions Given:Prescription Display ciprofloxacin (Cipro 250 mg Tab) 250 mg = 1 tab(s), Oral, q12hr, # 14 tab(s), Refills(s) 0 Home Meds Display citalopram (citalopram 20 mg Tab) 20 mg = 1 tab(s), Oral, Daily, Refills(s) 0 PATIENT EDUCATION INFORMATION: Instructions: Follow up:DIAGNOSIS:Acute urinary tract infection; Suicide ideation Normal [facility] ED Note-Physicianon 07-15-20 ED Note-Physician Patient: PEPE MAGANA Age: 17 years Sex: Female : 2000 Associated Diagnoses: None Author: Ryan Kevin MD Basic Information Time seen: Date & time 07/14/17 20:29:00. History source: Patient, police. Arrival mode: Police. History limitation: None. Additional information: Chief Complaint from Nursing Triage Note : Chief Complaint 07/14/2017 20:22 EDT Chief Complaint pt states suicidal and homicidal thoughts for 3 days, states plan to kill herself and my grandma and my provider with a knife has had the knife in her hand. states i have not been fed in days brought to ED per [place] [employer] officer Blake . History of Present Illness 17-year-old white female presents back to the emergency room with thoughts of wanting to harm herself she lives in a assisted living type long-term and was found with a knife in her possession. Patient claims that there is no one there tonight to take care of her and she is feeling suicidal. Patient has been seen by myself as well as other practitioners in the recent past. She is cooperative tonight she does not want to harm anyone other than herself. Review of Systems Constitutional symptoms: Negative except as documented in HPI. Skin symptoms: Negative except as documented in HPI. Eye symptoms: Negative except as documented in HPI. ENMT symptoms: Negative except as documented in HPI. Respiratory symptoms: Negative except as documented in HPI. Cardiovascular symptoms: Negative except as documented in HPI. Gastrointestinal symptoms: Negative except as documented in HPI. Genitourinary symptoms: Negative except as documented in HPI. Musculoskeletal symptoms: Negative except as documented in HPI. Neurologic symptoms: Negative except as documented in HPI. Psychiatric symptoms: Depression, Suicidal ideation. Endocrine symptoms: Negative except as documented in HPI. Hematologic/Lymphatic symptoms: Negative except as documented in HPI. Allergy/immunologic symptoms: Negative except as documented in HPI. Additional review of systems information: All other systems reviewed and otherwise negative, All systems reviewed as documented in chart. Health Status Allergies: Allergic Reactions (Selected)Severity Not DocumentedBee Stings- Sob.. Medications: (Selected) Documented MedicationsDocumentedcitalopr am 20 mg Tab: 20 mg = 1 tab(s), Oral, Daily, Refills(s) 0risperidone 1 mg oral tablet: Refills(s) 0. Past Medical/ Family/ Social History Medical history: ResolvedDiabetes ([id number]): Resolved.Suicidal plans ([id number]): Resolved.. Surgical history: None ([id number]).. Family history: No family history items have been selected or recorded.. Social history: Social & Psychosocial HabitsAlcohol Comment: rich. - 06/10/2017 18:11 - Kathy Vasquez RN N001/20/2017 Risk Assessment: Denies Alcohol Use07/02/2017 Frequency: DailySubstance Abuse Comment: rich. - 06/10/2017 18:11 - Kathy Vasquez RN N001/20/2017 Risk Assessment: Denies Substance AbuseTobacco Comment: smokes 2 ppd. - 06/10/2017 18:11 - Christina YA, Kathy N001/20/2017 Risk Assessment: Denies Tobacco Use. Physical Examination Vital Signs Vital Signs 07/14/2017 21:33 EDT Nursing Progress Note Reason Other: resting in bed. lights dimmed. 07/14/2017 21:17 EDT Nursing Progress Note Reason Other: labs being drawn 07/14/2017 21:00 EDT Nursing Progress Note Reason Other: resting in bed. lights dimmed. in view of nurses 07/14/2017 20:45 EDT Nursing Progress Note Reason Other: pt eating at bedside. 07/14/2017 20:22 EDT Temperature Oral 36.3 DegC Peripheral Pulse Rate 100 bpm Respiratory Rate 20 br/min Systolic Blood Pressure 137 mmHg Diastolic Blood Pressure 79 mmHg SpO2 97 % . Measurements 07/14/2017 20:22 EDT Weight Measured 129.4 kg . Basic Oxygen Information 07/14/2017 20:22 EDT SpO2 97 % Oxygen Therapy Room air . General: Alert, no acute distress, anxious, Not ill-appearing, Skin: Warm, dry, no rash. Head: Normocephalic, atraumatic. Neck: Supple, no tenderness. Eye: Pupils are equal, round and reactive to light, extraocular movements are intact, normal conjunctiva, vision unchanged. Ears, nose, mouth and throat: Oral mucosa moist, no pharyngeal erythema or exudate. Cardiovascular: Regular rate and rhythm, No murmur, Normal peripheral perfusion, No edema. Respiratory: Lungs are clear to auscultation, respirations are non-labored, breath sounds are equal, Symmetrical chest wall expansion. Chest wall: No tenderness, No deformity. Back: Nontender, Normal range of motion. Musculoskeletal: Normal ROM, normal strength. Gastrointestinal: Soft, Nontender, Non distended, Normal bowel sounds, No organomegaly. Genitourinary: No tenderness. Neurological: Alert and oriented to person, place, time, and situation, No focal neurological deficit observed, normal sensory observed, normal motor observed, normal speech observed. Lymphatics Psychiatric: Cooperative, Mood and affect: Depressed, flat. Medical Decision Making Differential Diagnosis: Anxiety, depression, suicide risk, schizophrenia, bipolar disorder, hallucination, psychosis. Rationale: Patient is very cooperative. And quiet tonight she is resting well waiting for lab results and evaluation by [facility]. Documents reviewed: Emergency department nurses' notes. Orders Launch Order Profile (Selected) Inpatient OrdersOrderedCipro 250 mg Tab: 250 mg = 1 tab(s), Tab, Oral, Once, Stop date 07/15/17 0:49:00 EDT, STAT, Start date 07/15/17 0:49:00 EDTPrescriptionsPrescribedCip ro 250 mg Tab: 250 mg = 1 tab(s), Oral, q12hr, # 14 tab(s), Refills(s) 0. Impression and Plan Diagnosis Suicide ideation ([id number] R45.851, Discharge, Medical) Complaint of Suicidal thoughts (PNED [id number], Reason For Visit, Emergency medicine, Medical) Calls-Consults - [facility], consult, recommends The mental health professional is familiar with the patient. She interviewed the patient and the patient's clerical and office support workers. Everybody is in agreement that the patient will benefit from inpatient evaluation and treatment.. Plan Condition: Guarded. Disposition: Transfer to other location: Facility name: [facility], Patient care transitioned to: Time: 07/14/17 21:59:00, Ryan Kevin MD, Patient has been accepted by Dr. Jean Paul Gardner. Notes: Dr Kevin has been informed about evaluation and treatment of patient during this visit.This report was transcribed using voice recognition software. Every effort was made to ensure accuracy, however, inadvertently computerized hydropulper mistakes may be present.Patient was treated and evaluated by the physician housing assistant property manager. The attending physician was in the emergency department at all times and supervised care. The case was discussed with the attending physician and diagnostics were reviewed as needed. Normal [facility] Comment on above: Result Comment: Elec tronically Signed By: Ryan Kevin MD\.br\Date and Time Signed: 07/15/17 01:21 EDT ED Patient Education Noteon 07-15-2017 ED Patient Education Note Patient Education Materials Follows: Normal [facility] ED Patient Summaryon 017 ED Patient Summary (Inserted Image. Silvia ble to display) [place] [id number] Patient Discharge Instructions Person Information Name: CRIS MAGANA Age: 17 Years Date: 07/14/2017 8:04 PMDischarge Diagnosis: Acute urinary tract infection; Suicide ideation Primary Care Physician: Barbara Mcknight MD Provider InformationPrimary Provider: Herberth MEDINA, TimPsiciysabel Tare Worker:None The exam and treatment you received in the Emergency Department were for an urgent problem and are not intended as complete care. It is important that you follow up with a doctor, nurse practitioner, or physician?s housing assistant property manager for ongoing care. If your symptoms become worse or you do not improve as expected and you are unable to reach your usual health care provider, you should return to the Emergency Department. We are available 24 hours a day. CRIS MAGANA has been given the following list of patient education materials, prescriptions and follow-up instructions: Follow-up Instructions: In the event that this physician does not participate in your insurance network, please consult with your insurance company to find a nearby participating provider. Patient Education Materials: Medications Given:Medication Dose Route ciprofloxacin 250.00 mg Oral Medication Information:New MedicationsPrinted Prescriptionsciprofloxacin (Cipro 250 mg Tab) 1 Tabs By Mouth every 12 hours. Refills: 0.Medications to Continue with No ChangesOther Medicationscitalopram (citalopram 20 mg Tab) 1 Tabs By Mouth every day.risperidone (risperidone 1 mg oral tablet) Comment: Pharmacy Information: [facility] Thank you for choosing [facility] Patient Education Materials: MATT German ANGELINA M , have received the following patient education materials/instructions and have verbalized understanding: Patient Education Materials: Follow-up Instructions: Prescriptions: [ciprofloxacin (Cipro 250 mg Tab)] Patient Signature Date Clinician/Nurse Signature Date 07/15/17 03:03:00 Normal [facility] UA With Cult Reflexon 2016 Bilirubin Ql (U) Negative Normal Negative [facility] Comment on above: Performed By: #### 2 249827, 6171729, 8304738, 54747630, 4565112, 7380047 ####[place] [address] COLOR:TYPE:PT:URINE :NOM:AUTO ORANGE Abnormal Yellow [facility] Comment on above: Performed By: #### 2 448561, 0397199, 6738733, 35111177, 5999780, 2999701 ####[place] [address] CRYSTALS:PRTHR:PT:U RINE SED:ORD:MICROSCOPY. LIGHT Present Normal [facility] Comment on above: Performed By: #### 2 260969, 8771369, 2968424, 72562792, 5744467, 4338690 ####[place] [id number] Erythrocytes (RBC) 0-3 Normal 0-3 [facility] Comment on above: Performed By: #### 2 444712, 7764179, 1257708, 65852451, 7402732, 4845273 ####[place] [id number] GLUCOSE:MCNC:PT:URI NE:QN:TEST STRIP TRACE Abnormal Negative [facility] Comment on above: Performed By: #### 2 207417, 9875806, 3303520, 95491289, 9843472, 9582323 ####[facility] [address] [place] [address] KETONES:MCNC:PT:URI NE:QN:TEST STRIP TRACE Abnormal Negative [facility] Comment on above: Performed By: #### 2 987884, 7239481, 1973452, 44078613, 5090143, 8175778 ####[facility] [address] [place] [address] LEUKOCYTES:PRTHR:PT :URINE:ORD:AUTOMATE D Negative Normal Negative [facility] Comment on above: Performed By: #### 2 670202, 4811333, 8299718, 71448083, 9261569, 3274410 ####[facility] [address] [place] [address] UA Spec Desc Clean Catch Normal [facility] Comment on above: Performed By: #### 2 161235, 0480428, 6354916, 14207270, 4848908, 4213092 ####[facility] [address] [place] [address] Urine, clarity CLOUDY Abnormal Clear [facility] Comment on above: Performed By: #### 2 315857, 9844869, 8889667, 46824205, 7259060, 2886210 ####[facility] [address] [place] [address] Urine, hemoglobin presence TRACE Abnormal Negative [facility] Comment on above: Performed By: #### 2 334067, 7113849, 3565240, 38536001, 5908777, 4628121 ####[facility] [address] [place] [address] Urine, leukocytes in sedmiment 6-15 Abnormal 0-5 [facility] Comment on above: Performed By: #### 2 098413, 3528165, 1490502, 33008654, 4229307, 8861351 ####[facility] [address] [place] [address] Urine, mucus presence in sediment 1+ Normal [facility] Comment on above: Performed By: #### 2 424859, 5171837, 9237995, 84906632, 2922026, 4474210 ####[facility] [address] [place] [address] Urine, nitrite presence Positive Abnormal Negative [facility] Comment on above: Performed By: #### 2 838454, 3495312, 7785569, 23722763, 5086456, 5874267 ####[facility] [address] [place] [address] Urine, pH 5.0 [pH] Invalid Interpretation Code 5.0-9.0 [facility] Comment on above: Performed By: #### 2 488026, 2648090, 2919097, 35538116, 3600676, 7799819 ####[place] [address] Urine, protein 2+ Abnormal Negative [facility] Comment on above: Performed By: #### 2 671974, 1096310, 2894257, 46523576, 9233219, 9764590 ####[place] [address] [place] [address] Urine, specific gravity 1.025 Invalid Interpretation Code 1.005-1.03 0 [facility] Comment on above: Performed By: #### 2 074360, 3502367, 4442106, 84883532, 3041894, 3952976 ####[place] [address] [place] [address] Urine, squamous cells in sediment 5-8 Normal 0-2 [facility] Comment on above: Performed By: #### 2 361171, 8533077, 2771189, 15873634, 7075069, 6285952 ####[facility] [address] [place] [address] Urine, urobilinogen 1.0 {Gretel'U}/dL Normal 0.0-1.0 [facility] Comment on above: Performed By: #### 2 265746, 2468468, 9437967, 77805248, 5485518, 8172298 ####[facility] [address] [place] [address] Acetamnphn Lvlon 07-14-2017 Acetaminophen mass conc <10 Low 15-30 [facility] Comment on above: Performed By: #### 2 278956, 0653189, 0625400, 22487902, 6820400, 6119072 ####[place] [address] [place] [address] Auto Diffon 07-14-2017 Basophils Auto #/vol (Bld) 0.3 % Normal 0.0-2.0 [facility] Comment on above: Order Comment: Order Added by Discern Expert. Performed By: #### 2 379672, 7033268, 9039031, 09807440, 1244283, 7901649 ####[address] [address] Basophils Auto #/vol (Bld) 0.0 E9/L Normal 0.0-0.2 [facility] Comment on above: Order Comment: Order Added by Discern Expert. Performed By: #### 2 468954, 1643318, 9076725, 79401252, 5409349, 9632306 ####[place] [address] [place] [address] Eosinophils 0.1 E9/L Normal 0.0-0.5 [facility] Comment on above: Order Comment: Order Added by Discern Expert. Performed By: #### 2 801145, 5233822, 6279181, 93874747, 5635917, 3693621 ####[place] [address] [place] [address] Eosinophils/100 leukocytes 1.2 % Normal 0.0-8.0 [facility] Comment on above: Order Comment: Order Added by Discern Expert. Performed By: #### 2 592746, 5064388, 2267001, 09996357, 0581518, 9718096 ####[place] [address] [place] [address] Lymphocytes 4.0 E9/L Normal 1.0-4.0 [facility] Comment on above: Order Comment: Order Added by Nita Expert. Performed By: #### 2 810934, 3446915, 8499473, 73744036, 2325912, 3087353 ####[facility] [address] [place] [address] Lymphocytes/100 leukocytes 36.0 % Normal 14.0-50.0 [facility] Comment on above: Order Comment: Order Added by Nita Expert. Performed By: #### 2 671392, 0749937, 7483189, 38700826, 3338762, 9815708 ####[facility] [address] [place] [address] Monocytes 0.7 E9/L Normal 0.2-1.0 [facility] Comment on above: Order Comment: Order Added by Nita Expert. Performed By: #### 2 539115, 2980198, 8148130, 99749802, 0547294, 2504692 ####[facility] [address] [place] [address] Monocytes/100 leukocytes 6.6 % Normal 4.0-14.0 [facility] Comment on above: Order Comment: Order Added by Nita Expert. Performed By: #### 2 396761, 3910545, 3319734, 52579041, 7598556, 2053740 ####[facility] [address] [place] [address] Neutrophils 6.2 E9/L Normal 2.0-7.5 [facility] Comment on above: Order Comment: Order Added by Nita Expert. Performed By: #### 2 908590, 3250287, 1382483, 45294750, 8302530, 0125854 ####[facility] [address] [place] [address] Neutrophils/100 leukocytes 55.9 % Normal 36.0-75.0 [facility] Comment on above: Order Comment: Order Added by Nita Expert. Performed By: #### 2 620083, 5542057, 3978286, 84985996, 6447712, 9033996 ####[place] [address] [place] [address] CBC w/ Auto Diffon Erythrocyte distribution width Auto Ratio (RBC) 12.9 % Normal 10.9-14.2 [facility] Comment on above: Performed By: #### 2 906147, 5827727, 9572235, 91719946, 3790705, 2642191 ####[place] [address] [place] 8659057 Erythrocytes (RBC) 4.7 E12/L Normal 4.3-5.9 [facility] Comment on above: Performed By: #### 2 357369, 4952536, 1919353, 75956408, 3549033, 8198857 ####[address] [address] Hematocrit (HCT) 40.0 % Normal 34.0-46.0 [facility] Comment on above: Performed By: #### 2 839243, 1901603, 7321297, 84556850, 7374828, 1224924 ####[place] [address] [place] [address] Hemoglobin mass conc (Bld) 13.6 g/dL Normal 12.0-16.0 [facility] Comment on above: Performed By: #### 2 222211, 5899171, 4460088, 85366263, 8017660, 1028290 ####[address] [address] MCH 28.9 pg Normal 27.0-34.0 [facility] Comment on above: Performed By: #### 2 523824, 3065229, 8972267, 82558249, 4124679, 6458765 ####[place] [address] [place] [address] MCHC mass conc (RBC) 33.9 g/dL Normal 31.4-39.3 [facility] Comment on above: Performed By: #### 2 675017, 2485949, 5793468, 85646001, 5729225, 0361970 ####[facility] [address] [place] [address] MCV 85.0 fL Normal 80.0-100.0 [facility] Comment on above: Performed By: #### 2 217364, 0428067, 8205292, 56244635, 6139355, 0946169 ####[place] [address] [place] 8[address]057 Platelet mean volume (PMV) 7.8 fL Normal 6.4-10.8 [facility] Comment on above: Performed By: #### 2 659972, 1309130, 1744586, 08438867, 9009587, 8562206 ####[place] [address]357 Platelets 244.0 E9/L Normal 150.0-500. 0 [facility] Comment on above: Performed By: #### 2 409110, 4295177, 9211656, 95812642, 8702394, 6957148 ####[place] [address]357 WBC (Leukocytes) 11.0 E9/L Normal 4.0-11.0 [facility] Comment on above: Performed By: #### 2 235655, 5814707, 7391896, 30705210, 9584582, 8139370 ####[address] [address] CMPon 07-14-2017 Alanine aminotransferase (ALT) 22 Int._Unit/L Normal 6-46 [facility] Comment on above: Performed By: #### 2 741575, 1911825, 3240018, 54648223, 6732617, 1817192 ####[place] [address] [place] [address] Albumin 3.6 g/dL Normal 3.3-5.0 [facility] Comment on above: Performed By: #### 2 716535, 5805162, 9815994, 51094927, 1470038, 0126940 ####[address] [place] [address] Albumin 1.2 g/dL Normal 1.1-2.2 [facility] Comment on above: Performed By: #### 2 215611, 0188268, 1841985, 04779936, 1564728, 7181943 ####[facility] [address] [place] [address] Alkaline phosphatase (ALP) 76 Int._Unit/L Normal 21-98 [facility] Comment on above: Performed By: #### 2 321483, 5370793, 9708568, 41979733, 1444736, 9617980 ####[facility] [address] [place] [address] Aspartate aminotransferase (AST) 20 Int._Unit/L Normal 5-43 [facility] Comment on above: Performed By: #### 2 295922, 4795340, 3231517, 77620020, 8279448, 7716143 ####[facility] [address] [place] [address] Bilirubin (total) 0.4 mg/dL Normal 0.0-1.1 [facility] Comment on above: Performed By: #### 2 667381, 4727461, 8070352, 97934033, 9337611, 0845365 ####[facility] [address] [place] [address] BUN/Creatinine Ratio 14 No Units Normal 10-20 [facility] Comment on above: Performed By: #### 2 704378, 6840546, 9771265, 94088821, 4562900, 8768691 ####[facility] [address] [place] [address] Creatinine 0.9 mg/dL Normal 0.5-1.3 [facility] Comment on above: Performed By: #### 2 587230, 6751938, 6836774, 33726132, 3023244, 9770481 ####[facility] [address] [place] [address] Globulin 3.0 g/dL Normal 1.4-4.0 [facility] Comment on above: Performed By: #### 2 909057, 2746260, 7781928, 99551863, 8574163, 6673774 ####[facility] [address] [place] [address] Protein 6.6 g/dL Normal 6.0-7.8 [facility] Comment on above: Performed By: #### 2 806458, 2292150, 1050216, 00704128, 3650964, 4020260 ####[facility] [address] [place] [address] Urea nitrogen 13 mg/dL Normal 5-21 [facility] Comment on above: Performed By: #### 2 440534, 0652925, 4853953, 57726642, 5569573, 3104367 ####[facility] [address] [place] [address] Anion gap 11 mmol/L Normal 6-16 [facility] Comment on above: Performed By: #### 2 813229, 3432991, 5078277, 01253151, 8425001, 1993347 ####[facility] [address] [place] [address] Calcium 8.6 mg/dL Low 8.9-11.1 [facility] Comment on above: Performed By: #### 2 347580, 2914543, 7431691, 32914099, 1814195, 3276191 ####[facility] [address] [place] [address] Chloride 107 mmol/L Normal 101-111 [facility] Comment on above: Performed By: #### 2 018949, 0445440, 9595922, 69037511, 0604237, 5207373 ####[facility] [address] [place] [address] CO2 23 mmol/L Normal 21-31 [facility] Comment on above: Performed By: #### 2 751956, 3306351, 0332806, 00712677, 3314649, 7259609 ####[facility] [facility] [address] [place] [address] Glucose mass conc 116 mg/dL Normal 55-199 [facility] Comment on above: Result Comment: If t his glucose result represents a fasting glucose, interpretation should refer to the following reference range: 55-99 mg/dL Performed By: #### 2 [id number], [id number], [id number], [id number], [id number], [id number] ####[facility] [address] [place] [address] Potassium molar conc 3.3 mmol/L Low 3.5-5.3 [facility] Comment on above: Performed By: #### 2 [id number], [id number], [id number], [id number], [id number], [id number] ####[facility] [address] [place] [address] Sodium 138 mmol/L Normal 135-145 [facility] Comment on above: Performed By: #### 2 [id number], 6940215, 1147253, [id number], [id number], [id number] ####[facility] [address] [place] [address] ED Note-Physicianon 07-14-20 ED Note-Physician Patient: PEPE MAGANA Age: 17 years Sex: Female : 2000 Associated Diagnoses: None Author: Marguerite LOZANO, Osmany Krishna Basic Information Time seen: Date & time 07/02/17 19:02:00. History source: Patient, Guardian grandmother. Arrival mode: Private vehicle. History limitation: None. Additional information: Chief Complaint from Nursing Triage Note : Chief Complaint 07/02/2017 18:59 EDT Chief Complaint Patient presents via squad with suicdal thoughts, pt stated plan is with a knife, patient also verbalized thoughts of harming her grandma and provider . Patient verbalized hearing voices. . History of Present Illness The patient presents with psychiatric problem, suicidal ideation, depression and agitation. The onset was 1 days ago. The course/duration of symptoms is episodic: with multiple episodes. Character of symptoms depressed, angry, anxious, paranoid, suicidal thoughts Patient having audio and visual hallucinations seeing shadows and hearing voices from min and women Telling her to harm herself and harm her grandmother. . The degree of symptoms is severe and Has tried cutting himself with a knife on both wrist superficial abrasions noted.. Self injury: incised wrist(s) and Has tried stabbing herself in the chest in the past.. There are exacerbating factors including family problems and housing problems. The relieving factor is none. Risk factors consist of suicide risk and homicide risk. Prior episodes: occasional and multiple ED visits. Therapy today: none. Associated symptoms: none. Additional history: psychiatric [facility](s[facility]. Review of Systems Constitutional symptoms: Negative except as documented in HPI. Skin symptoms: Negative except as documented in HPI. Eye symptoms: Negative except as documented in HPI. ENMT symptoms: Negative except as documented in HPI. Respiratory symptoms: Negative except as documented in HPI. Cardiovascular symptoms: Negative except as documented in HPI. Gastrointestinal symptoms: Negative except as documented in HPI. Genitourinary symptoms: Negative except as documented in HPI. Musculoskeletal symptoms: Negative except as documented in HPI. Neurologic symptoms: Negative except as documented in HPI. Psychiatric symptoms: Hallucinations and suicidal ideation, no substance abuse. Endocrine symptoms: Negative except as documented in HPI. Hematologic/Lymphatic symptoms: Negative except as documented in HPI. Allergy/immunologic symptoms: Negative except as documented in HPI. Additional review of systems information: All other systems reviewed and otherwise negative, All systems reviewed as documented in chart. Health Status Allergies: Allergic Reactions (Selected)Severity Not DocumentedBee Stings- Sob.. Medications: (Selected) PrescriptionsPrescribedZofran 4 mg Tab: 4 mg = 1 tab(s), Oral, q6hr, PRN Nausea, # 12 tab(s), Refills(s) 0Documented MedicationsDocumentedPro-Air HFA CFC free 90 mcg/inh MDI: Refill(s) 0citalopram 20 mg oral tablet: Refills(s) 0risperidone 1 mg oral tablet: Refills(s) 0. Past Medical/ Family/ Social History Medical history: ResolvedDiabetes ([id number]): Resolved.. Surgical history: None ([id number]).. Family history: No family history items have been selected or recorded.. Social history: Social & Psychosocial HabitsAlcohol Comment: rich. - 06/10/2017 18:11 - Kathy Vasquez RN 01/20/2017 Risk Assessment: Denies Alcohol Use07/02/2017 Frequency: DailySubstance Abuse Comment: rich. - 06/10/2017 18:11 - Kathy Vasquez RN N001/20/2017 Risk Assessment: Denies Substance AbuseTobacco Comment: smokes 2 ppd. - 06/10/2017 18:11 - Kathy Vasquez RN N001/20/2017 Risk Assessment: Denies Tobacco Use. Physical Examination Vital Signs Vital Signs 07/02/2017 20:27 EDT Peripheral Pulse Rate 100 bpm Respiratory Rate 18 br/min Systolic Blood Pressure 141 mmHg HI Diastolic Blood Pressure 88 mmHg SpO2 98 % 07/02/2017 18:59 EDT Temperature Oral 37.3 DegC Peripheral Pulse Rate 112 bpm HI Respiratory Rate 20 br/min Systolic Blood Pressure 145 mmHg HI Diastolic Blood Pressure 88 mmHg SpO2 98 % . Measurements 07/02/2017 19:09 EDT Height/Length Estimated 165 cm Weight Estimated 127 kg . Basic Oxygen Information 07/02/2017 20:27 EDT SpO2 98 % Oxygen Therapy Room air 07/02/2017 18:59 EDT SpO2 98 % Oxygen Therapy Room air . General: Alert, no acute distress, anxious, Not ill-appearing, Skin: Warm, dry, no rash. Head: Normocephalic, atraumatic. Neck: Supple, no tenderness. Eye: Pupils are equal, round and reactive to light, extraocular movements are intact, normal conjunctiva, vision unchanged. Ears, nose, mouth and throat: Oral mucosa moist, no pharyngeal erythema or exudate. Cardiovascular: Regular rate and rhythm, No murmur, Normal peripheral perfusion, No edema. Respiratory: Lungs are clear to auscultation, respirations are non-labored, breath sounds are equal, Symmetrical chest wall expansion. Chest wall: No tenderness, No deformity. Back: Nontender, Normal range of motion. Musculoskeletal: Normal ROM, normal strength. Gastrointestinal: Soft, Nontender, Non distended, Normal bowel sounds, No organomegaly. Genitourinary Neurological: Alert and oriented to person, place, time, and situation, No focal neurological deficit observed, normal sensory observed, normal motor observed, normal speech observed. Lymphatics Psychiatric: Cooperative, Not appropriate mood & affect, , Mood and affect: Flat, Abnormal / Psychotic thoughts: Suicidal, homicidal, hallucinations (auditory, visual). Medical Decision Making Differential Diagnosis: Anxiety, depression, suicide risk, schizophrenia, bipolar disorder, hallucination, psychosis. Rationale: Patient has had numerous problems she has prior admissions which she states [facility] being the last. Patient has prior history of stabbing herself in attempts to harm herself. She has audible and visual hallucinations. Patient feels that these hallucinations are telling her to harm her grandmother. Documents reviewed: Emergency department nurses' notes. Orders Launch Order Profile (Selected) Inpatient OrdersOrderedConsult to Mental Health: 07/02/17 18:57:00 EDT, Suicidal, Consult and Co-managePatient in a gown.: 07/02/17 18:57:00 EDT, Patient in a gown.Ordered (Collected)Urine Culture: Urine, Stat collect, Collected, 07/02/17 19:23:00 EDT, Stop date 07/02/17 19:23:00 EDT, Nurse collect, [id number] rescribedZofran 4 mg Tab: 4 mg = 1 tab(s), Oral, q6hr, PRN Nausea, # 12 tab(s), Refills(s) 0Documented MedicationsDocumentedPro-Air HFA CFC free 90 mcg/inh MDI: Refill(s) 0citalopram 20 mg oral tablet: Refills(s) 0risperidone 1 mg oral tablet: Refills(s) 0. Results review: Lab results : Lab View 07/02/2017 19:23 EDT U Amph Scr Negative U Daniella Scr Negative U Benzodia Scr Negative U Cannab Scr Negative U Cocaine Scr Negative U Opiate Scr Negative U PCP Scr Negative UA Spec Desc Clean Catch UA Color Yellow UA Clarity Slightly Cloudy UA Spec Grav 1.025 UA pH 6.0 UA Protein Negative UA Glucose Negative UA Ketones Trace UA Bili Negative UA Blood Negative UA Nitrite Negative UA Urobilinogen 0.2 EU/dL UA Leuk Est 1+ UA RBC 0-3 /HPF UA Squam Epithelial 0-2 /HPF UA WBC 6-15 /HPF UA Mucous 1+ U beta hCG Ql Negative 07/02/2017 19:10 EDT WBC 10.9 E9/L RBC 4.9 E12/L Hgb 14.2 gm/dL Hct 42.0 % MCV 86.2 fL MCH 29.1 pg MCHC 33.8 gm/dL RDW 12.9 % Platelet 264.0 E9/L MPV 8.2 fL Neutro Auto 60.3 % Lymph Auto 29.4 % [place] Auto 6.2 % Eos Auto 3.9 % Basophil Auto 0.2 % Neutro Absolute 6.6 E9/L Lymph Absolute 3.2 E9/L [place] Absolute 0.7 E9/L Eos Absolute 0.4 E9/L Basophil Absolute 0.0 E9/L Glucose Lvl 116 mg/dL BUN 10 mg/dL Creatinine 1.0 mg/dL eGFR >60 mL/min/1.73 m2 eGFR AA >60 mL/min/1.73 m2 BUN/Creat Ratio 10 Sodium Lvl 138 mmol/L Potassium Lvl 3.4 mmol/L LOW Chloride 107 mmol/L CO2 22 mmol/L AGAP 12 mEq/L Calcium Lvl 9.0 mg/dL Alk Phos 76 Int._Unit/L ALT 27 Int._Unit/L AST 21 Int._Unit/L Total Protein 7.2 gm/dL Albumin Lvl 3.9 gm/dL Globulin 3.3 gm/dL A/G Ratio 1.2 Bili Total 0.3 mg/dL Acetaminoph Lvl <10 microgram/mL LOW Salicylate Lvl <4 mg/dL LOW Ethanol Lvl <5 mg/dL . Notes: Discussed treatment of early UTI withSUE Yung, and Patient. WIll treat with Keflex 500mg PO QID x 7 days. Impression and Plan Diagnosis Suicidal ideation ([id number] R45.851, Discharge, Medical) Homicidal ideation ([id number] R45.850, Discharge, Medical) Medical clearance for psychiatric admission ([id number]-NL Z00.8, Discharge, Medical) Suspected UTI ([id number] N39.0, Discharge, Medical) Plan Condition: Stable. Disposition: Transfer to other location: Time: 07/02/17 23:20:00, Facility name: [facility] [place] to Dr Kaitlynn Gardner, time deemed necessary for transfer: 1899. Notes: Dr Kevin has been informed about evaluation and treatment of patient during this visit.This report was transcribed using voice recognition software. Every effort was made to ensure accuracy, however, inadvertently computerized hydropulper mistakes may be present.Patient was treated and evaluated by the physician housing assistant property manager. The attending physician was in the emergency department at all times and supervised care. The case was discussed with the attending physician and diagnostics were reviewed as needed. Addendum Teaching-Supervisory Addendum-Brief I participated in the following activities of this patients care: the medical history, medical decision making. I personally performed: supervision of the patient's care. The case was discussed with: the physician housing assistant property manager. Results interpretation: I agree with the documentation of the study interpretation. Normal [facility] Comment on above: Result Comment: Elec tronically Signed By: Osmany Everett PA-C\.br\Date and Time Signed: 07/04/17 15:51 EDT\.br\Electronically Co-Signed By: Herberth MEDINA, Ryan\.br\Date and Time Co-Signed: 07/14/17 00:21 EDT Ethanolon 07-14-2017 Ethanol mg/dL Normal <=7 [facility] Comment on above: Performed By: #### 2 [id number], 0233618, 6098304, [id number], 6932962, [id number] ####[facility] [address] [place] [address] Salicylateon 07-14-2017 Salicylates mg/dL Low 6-29 [facility] Comment on above: Performed By: #### 2 830206, 9880044, 8331851, [id number], 7328268, 0040240 ####[facility] [address] [place] [address] U Drug Screenon 07-14-2017 AMPHETAMINES:PRTHR: PT:URINE:ORD:SCREEN >1000 NG/ML Negative Normal Negative [facility] Comment on above: Result Comment: Nega tive Cutoff: <1000 ng/mL Performed By: #### 2 913591, 9455238, 0407533, 24229053, 0935580, 4538263 ####[facility] [address] [place] [address] OPIATES:PRTHR:PT:UR INE:ORD:SCREEN Negative Normal Negative [facility] Comment on above: Result Comment: Nega tive Cutoff: <300 ng/mL Performed By: #### 2 949704, 5236405, 4892087, 44450302, 2365862, 2732625 ####[facility] [address] [place] [address] PHENCYCLIDINE:PRTHR :PT:URINE:ORD:SCREE N>25 NG/ML Negative Normal Negative [facility] Comment on above: Result Comment: Nega tive Cutoff: <25 ng/mLThese drug screen results are to be used for medical (i.e., treatment) purposes only. Unconfirmed drug screening results must not be used for non-medical purposes (e.g., employment testing, legal testing). Performed By: #### 2 025414, 5052445, 5255285, 53558353, 3508554, [id number] ####[place] [id number] TETRAHYDROCANNABINO L:PRTHR:PT:URINE:OR D:SCREEN>50 NG/ML Negative Normal Negative [facility] Comment on above: Result Comment: Nega tive Cutoff: <50 ng/mL Performed By: #### 2 227610, 2219169, 4733225, [id number], 7407289, 7447421 ####[address] [address] Urine, barbiturates presence Negative Normal Negative [facility] Comment on above: Result Comment: Nega tive Cutoff: <200 ng/mL Performed By: #### 2 128975, 0519148, 8896778, 37963881, 2041186, 8774287 ####[facility] [address] [place] [address] Urine, benzodiazepines presence Negative Normal Negative [facility] Comment on above: Result Comment: Nega tive Cutoff: <200 ng/mL Performed By: #### 2 915354, 5139712, 8493021, 79072026, 4697885, 0848907 ####[facility] [address] [place] [address] Urine, cocaine presence Negative Normal Negative [facility] Comment on above: Result Comment: Nega tive Cutoff: <300 ng/mL Performed By: #### 2 837819, 7468619, 1328207, 05807365, 8517720, 7503961 ####[facility] [address] [place] [address] eGFRon 07-14-2017 eGFR (black) mL/min/{1.73_m2} Normal >=59 [facility] Comment on above: Order Comment: Order added by Discern Expert. Result Comment: eGFR is race adjusted. AA=. Performed By: #### 2 555650, 7450079, 8422754, 46118458, 3519395, 2311356 ####[facility] [address] [place] [address] eGFR (non-black) mL/min/{1.73_m2} Normal >=59 [facility] Comment on above: Order Comment: Order added by Discern Expert. Result Comment: Organic Extractions Technician jorge kidney disease could be indicated at eGFR's of less than 60 mL/min/1.73m2. Kidney failure is indicated at less than 15 mL/min/1.73m2. Performed By: #### 2 795324, 7239145, 8515904, 90015602, 0470928, 6598947 ####[facility] [address] [place] [address] Coding Summary.on 07-13-2017 Coding Summary. CODING DATE: 017 FINAL [facility] STATUS: Home (Routine DC) PAYOR: Medicaid EA DESCRIPTION 0496 MINOR PHARMACOTHERAPY 0490 INCIDENTAL TO MEDICAL, SIGNIFICANT PROCEDURE OR THERAPY VISIT 0821 MAJOR DEPRESSIVE DIAGNOSES & OTHER/UNSPECIFIED PSYCHOSES ADMIT DX: REASON FOR VISIT DX: R45.851 Suicidal ideations R45.850 Homicidal ideations FINAL DX: PRINCIPAL: F32.9 Major depressive disorder, single episode, unspecified SECONDARY: R46.89 Other symptoms and signs involving appearance and behavior R45.851 Suicidal ideations R45.850 Homicidal ideations F17.210 Nicotine dependence, cigarettes, uncomplicated PYMT PROC EAPG STAT DESCRIPTION DOCTOR NAME DATE NOTE: The code number assigned matches the documented diagnosis and / or procedure in the patient's chart. However, the narrative phrase printed from the coding software may appear abbreviated, or result in slightly different terminology. Revised Coded By: Araceli Resendez Revised Date Saved: 07/13/2017 02:42 pm [facility] Coding Summary. CODING DATE: 017 FINAL [facility] STATUS: Home (Routine DC) PAYOR: Medicaid EAPG DESCRIPTION 0457 VENIPUNCTURE 0408 LEVEL I HEMATOLOGY TESTS 0405 THERAPEUTIC DRUG MONITORING 0403 ORGAN OR DISEASE ORIENTED PANELS 0410 URINALYSIS 0401 LEVEL II CHEMISTRY TESTS 0826 ACUTE ANXIETY & DELIRIUM STATES ADMIT DX: REASON FOR VISIT DX: R45.851 Suicidal ideations R45.850 Homicidal ideations FINAL DX: PRINCIPAL: R45.851 Suicidal ideations SECONDARY: R45.850 Homicidal ideations F17.210 Nicotine dependence, cigarettes, uncomplicated PYMT PROC EAPG STAT DESCRIPTION DOCTOR NAME DATE NOTE: The code number assigned matches the documented diagnosis and / or procedure in the patient's chart. However, the narrative phrase printed from the coding software may appear abbreviated, or result in slightly different terminology. Revised Coded By: Araceli Resendez Revised Date Saved: 07/13/2017 09:57 am [facility] ED Note-Physicianon 07-13-20 ED Note-Physician Patient: PEPE MAGANA Age: 17 years Sex: Female : 2000 Associated Diagnoses: None Author: Tyson Fisher DNP Basic Information Time seen: Date & time 07/12/17 15:17:00. History source: Patient, EMS, Personal care provider. Arrival mode: Ambulance. History limitation: None. Additional information: Chief Complaint from Nursing Triage Note : Chief Complaint 07/11/2017 19:07 EDT Chief Complaint [facility]. states that she is having homicidial and suicidial thoughts . History of Present Illness The patient presents with psychiatric problem and Patient to the emergency department where she advises that she wants to kill herself and her grandmother. She advises as she did last night that she would do that with a knife. The patient was seen and evaluated here in the emergency department last night for the same complaint and she was discharged a before yesterday from [facility] with the same complaint. The patient was evaluated by P and the grandmother was also contacted and the patient was to follow-up with outpatient psych today which the patient said she refused to go to. The patient advises that she doesn't want to go home she didn't just wants to stay here she likes it here better than at home.. The onset was chronic. Character of symptoms depressed suicidal thoughts. The degree of symptoms is severe. Self injury: The patient would cut herself with a knife in her grandmother with a knife. The exacerbating factor is none. The relieving factor is none. Prior episodes: chronic and multiple ED visits. Therapy today: none. Associated symptoms: none. Disabled, Lives in long-term setting.. Review of Systems Constitutional symptoms: Negative except as documented in HPI. Skin symptoms: Negative except as documented in HPI. ENMT symptoms: Negative except as documented in HPI. Respiratory symptoms: Negative except as documented in HPI. Cardiovascular symptoms: Negative except as documented in HPI. Musculoskeletal symptoms: Negative except as documented in HPI. Neurologic symptoms: Negative except as documented in HPI. Psychiatric symptoms: Depression. Allergy/immunologic symptoms: Negative except as documented in HPI. Additional review of systems information: All other systems reviewed and otherwise negative. Health Status Allergies: Allergic Reactions (Selected)Severity Not DocumentedBee Stings- Sob., reviewed by Dr. Aguilar. Medications: (Selected) Documented MedicationsDocumentedrisperid one 1 mg oral tablet: Refills(s) 0traZODONE 50 mg Tab: 50 mg = 1 tab(s), Oral, Once a day (at bedtime), Refills(s) 0, Reviewed by Dr. Aguilar. Past Medical/ Family/ Social History Medical history: ResolvedDiabetes ([id number]): Resolved., Reviewed as documented in chart. Surgical history: None ([id number])., Reviewed as documented in chart. Family history: No family history items have been selected or recorded.. Social history: Social & Psychosocial HabitsAlcohol Comment: rich. - 06/10/2017 18:11 - Kathy Vasquez RN N001/20/2017 Risk Assessment: Denies Alcohol Use07/02/2017 Frequency: DailySubstance Abuse Comment: denies. - 06/10/2017 18:11 - Kathy Vasquez RN N001/20/2017 Risk Assessment: Denies Substance AbuseTobacco Comment: smokes 2 ppd. - 06/10/2017 18:11 - Kathy Vasquez RN N001/20/2017 Risk Assessment: Denies Tobacco Use, Reviewed as documented in chart. Problem list: Active Problems (1)Smoker . Physical Examination Vital Signs Vital Signs 07/11/2017 22:14 EDT Heart Rate Monitored 86 bpm Respiratory Rate 18 br/min Systolic Blood Pressure 136 mmHg Diastolic Blood Pressure 74 mmHg Hourly Rounding Yes Nursing Progress Note Reason Other: Patient given belongings back, safety plan for home in place, caregiver aware. SpO2 98 % 07/11/2017 22:00 EDT Nursing Progress Note Reason Other: Patient cleared by mental health, safety plan for home being provided. No needs. Pt calm/cooperative. 07/11/2017 21:30 EDT Hourly Rounding Yes 07/11/2017 21:17 EDT Hourly Rounding Yes 07/11/2017 20:59 EDT Hourly Rounding Yes Nursing Progress Note Reason Other: suicidal precuations in place. visitor at bedside. MHP here to speak with patient. 07/11/2017 20:45 EDT Hourly Rounding Yes Nursing Progress Note Reason Other: No change in assesment, patient has suicidal precautions in place. 07/11/2017 20:30 EDT Hourly Rounding Yes Nursing Progress Note Reason Other: suicidal precaution in place, denies needs at this time. Watching tv. 07/11/2017 20:15 EDT Hourly Rounding Yes Nursing Progress Note Reason Other: suicidal precaution in place 07/11/2017 20:05 EDT Hourly Rounding Yes Nursing Progress Note Reason Other: Speaking with Mental health counselor over the phone at this time. Cooperative. 07/11/2017 20:00 EDT Nursing Progress Note Reason Other: suicidal precaution in place. 07/11/2017 19:07 EDT Temperature Oral 36.8 DegC Peripheral Pulse Rate 95 bpm Respiratory Rate 20 br/min Systolic Blood Pressure 150 mmHg HI Diastolic Blood Pressure 82 mmHg SpO2 99 % . Measurements 07/11/2017 19:07 EDT Weight Measured 128.4 kg . Basic Oxygen Information 07/11/2017 22:14 EDT SpO2 98 % Oxygen Therapy Room air 07/11/2017 19:07 EDT SpO2 99 % Oxygen Therapy Room air . General: Alert, no acute distress. Skin: Warm, dry, pink, intact. Head: Normocephalic. Neck: Supple, no tenderness. Cardiovascular: Regular rate and rhythm, No murmur, Normal peripheral perfusion. Respiratory: Lungs are clear to auscultation, respirations are non-labored, breath sounds are equal, Symmetrical chest wall expansion. Back: Nontender, Normal range of motion. Musculoskeletal: Normal ROM, normal strength. Neurological: Alert and oriented to person, place, time, and situation, No focal neurological deficit observed, normal sensory observed, normal motor observed, normal speech observed, normal coordination observed. Psychiatric: Cooperative, Mood and affect: The patient advises that she's wanting to cut herself and kill her grandmother at the same time is giggling about wanting to do this. The patient advises that she did not want to go to her mental health appointment today she advises that she just wants to come here to this emergency department as she likes it better here than she does at home.. Medical Decision Making Differential Diagnosis: Depression. Documents reviewed: Emergency department nurses' notes. Orders Launch Order Profile (Selected) Inpatient OrdersCompletedhaloperidol 5 mg/mL Inj: 5 mg = 1 mL, Injection, IntraMuscular, Once, Stop date 07/12/17 16:23:00 EDT, NOW, Start date 07/12/17 16:23:00 EDT. Results review: Lab results : Lab View 07/11/2017 19:58 EDT U Amph Scr Negative U Daniella Scr Negative U Benzodia Scr Negative U Cannab Scr Negative U Cocaine Scr Negative U Opiate Scr Negative U PCP Scr Negative U beta hCG Ql Negative 07/11/2017 19:40 EDT WBC 10.7 E9/L RBC 4.8 E12/L Hgb 13.8 gm/dL Hct 40.4 % MCV 84.8 fL MCH 29.1 pg MCHC 34.3 gm/dL RDW 12.9 % Platelet 242.0 E9/L MPV 7.5 fL Neutro Auto 68.0 % Lymph Auto 25.8 % [place] Auto 5.4 % Eos Auto 0.6 % Basophil Auto 0.2 % Neutro Absolute 7.2 E9/L Lymph Absolute 2.7 E9/L [place] Absolute 0.6 E9/L Eos Absolute 0.1 E9/L Basophil Absolute 0.0 E9/L Glucose Lvl 174 mg/dL BUN 11 mg/dL Creatinine 0.9 mg/dL eGFR >60 mL/min/1.73 m2 eGFR AA >60 mL/min/1.73 m2 BUN/Creat Ratio 12 Sodium Lvl 136 mmol/L Potassium Lvl 3.1 mmol/L LOW Chloride 102 mmol/L CO2 24 mmol/L AGAP 13 mEq/L Calcium Lvl 8.7 mg/dL LOW Alk Phos 72 Int._Unit/L ALT 27 Int._Unit/L AST 23 Int._Unit/L Total Protein 6.9 gm/dL Albumin Lvl 3.6 gm/dL Globulin 3.3 gm/dL A/G Ratio 1.1 Bili Total 0.4 mg/dL Acetaminoph Lvl <10 microgram/mL LOW Salicylate Lvl <4 mg/dL LOW Ethanol Lvl <5 mg/dL , reviewed by Dr Aguilar. Reexamination/ Reevaluation Time: 07/12/17 15:29:00 . Vital signs Basic Oxygen Information 07/11/2017 22:14 EDT SpO2 98 % Oxygen Therapy Room air 07/11/2017 19:07 EDT SpO2 99 % Oxygen Therapy Room air Notes: Dr. Aguilar went in and evaluated the patient personally and he advised for the patient is in a controlled setting at long-term with 24-hour supervision and has been recently discharged from our psychiatric facility and was seen by MHP less than 24 hours ago that the patient can go back to her current setting and advised to follow-up on Sunday with her appointments as scheduled. I spoke with the long-term staff also advise them that if she decides to wander off again where the patient advises that she would not wander her off again. however, the long-term staff advised if she does wander off again they needs to at least follow her and call the police. Because they need to insure her safety at all times. The care staff also agrees and will do that. The care staff was again advised to be sure that they don't have any sharp instruments or anything that can be obtained by the patient to hurt herself or others. They advised that they would furthermore, the advised that she they will make sure that she goes to her counseling appointment today at 7:00 and she will see the psychiatrist tomorrow at 3:30. In discussing all this with the grandmother that the grandmother advises that she will take her to the appointment tomorrow at 3:30 as well.. Impression and Plan Diagnosis Depression (VIE49-OH F32.9, Discharge, Medical) Manipulative behavior (VKA32-XL R46.89, Discharge, Medical) Plan Condition: Stable. Disposition: Discharged: Time 07/12/17 15:30:00, to home. Patient was given the following educational materials: Depression, Adult, [id number], Follow-up dental health try to go to your appointment todayFollow-up with your family doctor tomorrow as scheduledReturn to the emergency department as needed. Follow up with: Barbara Mcknight In 3 days 07/15/2017; Barbara Mcknight In 1 day 07/13/2017, Barbara Mcknight In 1 day 07/13/2017; Barbara Mcknight In 3 days. Counseled: Patient, Family, Regarding diagnosis, Regarding diagnostic results, Regarding treatment plan, Patient indicated understanding of instructions. Addendum Teaching-Supervisory Addendum-Brief I participated in the following activities of this patients care: the medical history, the physical exam, medical decision making. I personally performed: supervision of the patient's care, the medical history, the physical exam, the medical decision making. The case was discussed with: the physician housing assistant property manager. Evaluation and management service: I agree with the evaluation and management decisions made in this patient's care. Results interpretation: I agree with the study interpretation in this patient's care, I agree with the documentation of the study interpretation. Normal [facility] Comment on above: Result Comment: Elec tronically Signed By: Tyson Fisher DNP\.br\Date and Time Signed: 07/12/17 16:20 EDT\.br\Electronically Co-Signed By: Berta Aguilar DO\.br\Date and Time Co-Signed: 07/13/17 09:48 EDT ED Clinical Summaryon 2016 ED Clinical Summary (Inserted Image. Slivia ble to display) [place] [id number] ED Clinical SummaryPerson Information Name: CRIS MAGANA/Eitan Age: 17 Years : 2000 12:00 AM Sex: Female Language:Italian PCP: Barbara Mcknight MD Marital Status:Single Visit Id: Visit Reason:Suicidal thoughts; Mental health disorder; SQUAD Speciality: Acuity: 2 Enc Type: Emergency Med Service: Emergency Arrival:07/12/2017 3:15 PM Discharge: 07/12/2017 5:09 PM LOS: 000 01:54 Checkin:07/12/2017 3:15 PM Checkout: 07/12/2017 5:09 PM Dispo Type: Home (Routine DC) EVENTS:Event Name Event Status Request Date/Time Start Date/Time Complete Date/Time Arrive Complete 07/12/2017 3:15 PM 07/12/2017 3:15 PM 07/12/2017 3:15 PM Document Home Meds Complete 07/12/2017 3:15 PM 07/12/2017 3:30 PM 07/12/2017 3:30 PM Triage Complete 07/12/2017 3:15 PM 07/12/2017 3:32 PM 07/12/2017 3:32 PM Bed Assign Complete 07/12/2017 3:15 PM 07/12/2017 3:15 PM 07/12/2017 3:[address] Exam Complete 07/12/2017 3:15 PM 07/12/2017 3:16 PM 07/12/2017 3:16 PM RN Exam Complete 07/12/2017 3:15 PM 07/12/2017 3:29 PM 07/12/2017 3:29 PM Registration Complete 07/12/2017 3:16 PM 07/12/2017 3:19 PM 07/12/2017 3:[address] Exam Complete 07/12/2017 3:18 PM 07/12/2017 3:18 PM 07/12/2017 3:[address] Exam Complete 07/12/2017 3:19 PM 07/12/2017 3:19 PM 07/12/2017 3:19 PM Reg Complete Request 07/12/2017 3:19 PM Reg Bed Request Complete 07/12/2017 3:19 PM 07/12/2017 3:19 PM 07/12/2017 3:19 PM Discharge Complete 07/12/2017 3:32 PM 07/12/2017 5:09 PM 07/12/2017 5:09 PM Meds Admin Complete 07/12/2017 4:23 PM 07/12/2017 4:31 PM Transfer Complete 07/12/2017 5:09 PM 07/12/2017 5:09 PM 07/12/2017 5:09 PM ADDRESS:[address] [place] [phone] PHYS DOC NOTES: MEDICAL INFORMATION: Prescriptions Given:PATIENT EDUCATION INFORMATION: Instructions:Depression, Adult, Yskv-[id number] Follow up:With: Address: When: Barbara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 Emergency Department were for an urgent problem and are not intended as complete care. It is important that you follow up with a doctor, nurse practitioner, or physician?s housing assistant property manager for ongoing care. If your symptoms become worse or you do not improve as expected and you are unable to reach your usual health care provider, you should return to the Emergency Department. We are available 24 hours a day. CRIS MAGANA has been given the following list of patient education materials, prescriptions and follow-up instructions: Follow-up Instructions:With: Address: When: Barbara Mcknight [address] [id number] [facility] (1) In 2 days 07/13/2017 With: Address: When: Barbara Mcknight [address], [place] [address] Business (1) In 3 days In the event that this physician does not participate in your insurance network, please consult with your insurance company to find a nearby participating provider. Patient Education Materials:Depression, Adult, Vzay-fh-Tnsp Medications Given:Medication Dose Route No medications found. Medication Information:Medications to Continue with No ChangesOther Medicationsrisperidone (risperidone 1 mg oral tablet) trazodone (traZODONE 50 mg Tab) 1 Tabs By Mouth once a day (at bedtime).No Longer Take the Following Medicationscitalopram (citalopram 20 mg oral tablet) Comment: Pharmacy Information: [facility] Thank you for choosing [facility] Patient Education Materials: DepressionDepression is feeling sad, low, down in the dumps, blue, gloomy, or empty. In general, there are two kinds of depression: ? Normal sadness or grief. This can happen after something upsetting. It often goes away on its own within 2 weeks. After losing a loved one (bereavement), normal sadness and grief may last longer than two weeks. It usually gets better with time.? Clinical depression. This kind lasts longer than normal sadness or grief. It keeps you from doing the things you normally do in life. It is often hard to function at home, work, or at school. It may affect your relationships with others. Treatment is often needed. GET HELP RIGHT AWAY IF:? You have thoughts about hurting yourself or others.? You lose touch with reality (psychotic symptoms). You may:? See or hear things that are not real.? Have untrue beliefs about your life or people around you.? Your medicine is giving you problems.MAKE SURE YOU:? Understand these instructions.? Will watch your condition.? Will get help right away if you are not doing well or get worse.Document Released: 10/20/2011 Document Revised: 02/01/2015 Document Reviewed: 01/16/2013ExitCare? Patient Information ?2014 [employer]. This information is not intended to replace advice given to you by your health care provider. Make sure you discuss any questions you have with your health care provider.MATT German ANGELINA M , have received the following patient education materials/instructions and have verbalized understanding: Patient Education Materials: Depression, Adult, Qijl-pd-Lrrv Follow-up Instructions: With: Address: When: Barbara [address], [place] [address] [facility] (1) In 2 days 07/13/2017 With: Address: When: Barbara [address], [place] [address] Business (1) In 3 days Prescriptions: Patient Signature Date Clinician/Nurse Signature Date 07/11/17 22:18:03 [facility] Pre-Arrival Noteon 7 Pre-Arrival Note Pre-Arrival SummaryN valeria: , Current Date: 07/12/2017 15:16:02 EDTGender: FemaleDate of : Age: 17Pre-Arrival Type: EMSETA: 07/12/2017 15:35:00 EDTPrimar Care Physician: Presenting Problem: Pre-Arrival User: Britni Yadav RN Source: Location: [facility] Date/Time: 07/12/17 15:06:00[facility] Emergency Department Pre-Hospital Report Form Vital Signs: Pre-Hospital Report: 17 year old female, mentally challenged. Wants to cut herself. Treatment in Route: Response to Treatment: Misc. Issues: Normal [facility] Progress Note-Nurseon 2016 Progress Note-Nurse Patient sitting on c art. This nurse spoke with Tyson Fisher, VELASQUEZ and patients mal who is legal guardian. Awaiting arrival of patients 24 hour manager statistical to discuss care. Patient states she is to have appt with counselor kobe at 7pm and appt with doctor tomorrow at 1545. Patient states I dont want to kill my grandma, I want her in the room. This discussed with Tyson and Dr. Aguilar. Grandma in room at this time with patient. Personal items removed from room.Patient sitting up on cart. Grandma in room. Patient remains in view of nurses station.Tyson in room at this time speaking with manager statistical. Patient using phone to call boyfriend.This nurse in to discharge patient with manager statistical. Patient states, I dont want to go anywhere with her, shes an asshole. I dont care what she thinks, I'll beat her fuckin ass. I dont want her to be my provider anymore. Ill kill her. Patient informed her language wont be tolerated. Tyson in to see patient. Maintenance Controller calling [facility]. David states unable to come back to hospital at this time. Patient remains in view of nurses station.Patient sitting on cart talking on phone with boyfriend. Maintenance Controller at bedside. Patient remains in view of nurses station.Patient sitting on cart talking with manager statistical pleasantly. Remains in view of nurses station.Patient discharged at this time with manager statistical. Maintenance Controller verbalized that she felt safe taking patient home. Tyson aware of this. Normal [facility] Acetamnphn Lvlon 07-11-2017 Acetaminophen mass conc <10 Low 15-30 [facility] Comment on above: Performed By: #### 2 592599, 8572986, 3968911, 4420257, 1913873, [id number] ####[facility] [address] [place] [address] Auto Diffon 07-11-2017 Basophils Auto #/vol (Bld) 0.2 % Normal 0.0-2.0 [facility] Comment on above: Order Comment: Order Added by Discern Expert. Performed By: #### 2 732908, 3624057, 3420116, 3488992, 6088357, 58607927 ####[place] [address] [place] [address] Basophils Auto #/vol (Bld) 0.0 E9/L Normal 0.0-0.2 [facility] Comment on above: Order Comment: Order Added by Discern Expert. Performed By: #### 2 467226, 5351061, 4632792, 6859447, 0075469, 70811783 ####[address] [address] Eosinophils 0.1 E9/L Normal 0.0-0.5 [facility] Comment on above: Order Comment: Order Added by Nita Expert. Performed By: #### 2 681251, 4962300, 9201026, 9480355, 7534725, 58621433 ####[place] [address] [place] [address] Eosinophils/100 leukocytes 0.6 % Normal 0.0-8.0 [facility] Comment on above: Order Comment: Order Added by Discern Expert. Performed By: #### 2 293418, 4589619, 9487741, 0142672, 8130964, 28239140 ####[place] [address] [place] [address] Lymphocytes 2.7 E9/L Normal 1.0-4.0 [facility] Comment on above: Order Comment: Order Added by Nita Expert. Performed By: #### 2 273625, 7261630, 4416639, 2099966, 9171996, 73291966 ####[place] [address] [place] [address] Lymphocytes/100 leukocytes 25.8 % Normal 14.0-50.0 [facility] Comment on above: Order Comment: Order Added by Discern Expert. Performed By: #### 2 980876, 2290335, 4698486, 1041469, 4832032, 74903261 ####[facility] [address] [place] [address] Monocytes 0.6 E9/L Normal 0.2-1.0 [facility] Comment on above: Order Comment: Order Added by Discern Expert. Performed By: #### 2 276329, 2897907, 7861667, 5014487, 0675803, 14195643 ####[place] [address] [place] [address] Monocytes/100 leukocytes 5.4 % Normal 4.0-14.0 [facility] Comment on above: Order Comment: Order Added by Nita Expert. Performed By: #### 2 640113, 4488380, 7926691, 0560066, 4967574, 91638189 ####[address] [address] Neutrophils 7.2 E9/L Normal 2.0-7.5 [facility] Comment on above: Order Comment: Order Added by Nita Expert. Performed By: #### 2 603946, 5846244, 2306983, 1250126, 1049759, 92729926 ####[place] [address] [place] [address] Neutrophils/100 leukocytes 68.0 % Normal 36.0-75.0 [facility] Comment on above: Order Comment: Order Added by Discern Expert. Performed By: #### 2 993884, 8332775, 0749532, 6636192, 1913800, 50886391 ####[place] [address] [place] [address] CBC w/ Auto Diffon 7 Erythrocyte distribution width Auto Ratio (RBC) 12.9 % Normal 10.9-14.2 [facility] Comment on above: Performed By: #### 2 287622, 0070583, 0805686, 1831189, 9667846, 57026953 ####[place] [address] [place] [address] Erythrocytes (RBC) 4.8 E12/L Normal 4.3-5.9 [facility] Comment on above: Performed By: #### 2 612618, 9120671, 5166289, 7849748, 7973006, 26972075 ####[place] [address] [place] [address] Hematocrit (HCT) 40.4 % Normal 34.0-46.0 [facility] Comment on above: Performed By: #### 2 345879, 3002921, 0314022, 5700810, 5035693, 50446794 ####[place] [address] Hemoglobin mass conc (Bld) 13.8 g/dL Normal 12.0-16.0 [facility] Comment on above: Performed By: #### 2 546814, 9105371, 4584634, 1082556, 7416045, 38679537 ####[place] 5839357 MCH 29.1 pg Normal 27.0-34.0 [facility] Comment on above: Performed By: #### 2 926924, 1643265, 7756086, 6142593, 3738996, 39801125 ####[place] [address]357 MCHC mass conc (RBC) 34.3 g/dL Normal 31.4-39.3 [facility] Comment on above: Performed By: #### 2 976696, 5094575, 6693287, 6395470, 6766976, 86538258 ####[place] [address] [place] 8[address]057 MCV 84.8 fL Normal 80.0-100.0 [facility] Comment on above: Performed By: #### 2 935234, 1109193, 9175075, 0805000, 0097821, 37572270 ####[facility] [address] [place] [address] Platelet mean volume (PMV) 7.5 fL Normal 6.4-10.8 [facility] Comment on above: Performed By: #### 2 775943, 5617729, 9621785, 8143352, 9762527, 58111181 ####[place] [address] [place] [address] Platelets 242.0 E9/L Normal 150.0-500. 0 [facility] Comment on above: Performed By: #### 2 890023, 6492246, 1147983, 6474376, 7363107, 61139029 ####[place] [address] [place] [address] WBC (Leukocytes) 10.7 E9/L Normal 4.0-11.0 [facility] Comment on above: Performed By: #### 2 043020, 4423281, 1519493, 5862995, 6017774, 16517282 ####[address] [address] CMPon 07-11-2017 Alanine aminotransferase (ALT) 27 Int._Unit/L Normal 6-46 [facility] Comment on above: Performed By: #### 2 664119, 9973688, 5881487, 09762283, 5338495, 6399123 ####[place] [address] [place] [address] Albumin 3.6 g/dL Normal 3.3-5.0 [facility] Comment on above: Performed By: #### 2 937285, 0312582, 8765945, 91565150, 2426723, 5078260 ####[place] [address] [place] [address] Albumin 1.1 g/dL Normal 1.1-2.2 [facility] Comment on above: Performed By: #### 2 426088, 3083344, 2843837, 79195568, 0616607, 4809043 ####[address] [place] [address] Alkaline phosphatase (ALP) 72 Int._Unit/L Normal 21-98 [facility] Comment on above: Performed By: #### 2 809847, 8151203, 9513862, 05884556, 0255905, 6248758 ####[facility] [address] [place] [address] Aspartate aminotransferase (AST) 23 Int._Unit/L Normal 5-43 [facility] Comment on above: Performed By: #### 2 952764, 3262911, 0251676, 71615439, 0004123, 0306345 ####[facility] [address] [place] [address] Bilirubin (total) 0.4 mg/dL Normal 0.0-1.1 [facility] Comment on above: Performed By: #### 2 601203, 5318530, 5847856, 07885170, 4482698, 4410304 ####[facility] [address] [place], [place] [address] BUN/Creatinine Ratio 12 No Units Normal 10-20 [facility] Comment on above: Performed By: #### 2 840998, 5328774, 5434693, 22134056, 5197814, 6272385 ####[facility] [address] [place] [address] Creatinine 0.9 mg/dL Normal 0.5-1.3 [facility] Comment on above: Performed By: #### 2 901049, 3292658, 1273734, 19973737, 6193089, 7572526 ####[facility] [address] [place] [address] Globulin 3.3 g/dL Normal 1.4-4.0 [facility] Comment on above: Performed By: #### 2 588394, 7648635, 6857097, 12856676, 6662660, 0060857 ####[facility] [address] [place] [address] Protein 6.9 g/dL Normal 6.0-7.8 [facility] Comment on above: Performed By: #### 2 563978, 9155338, 3698751, 01926837, 9121000, 7900622 ####[facility] [address] [place] [address] Urea nitrogen 11 mg/dL Normal 5-21 [facility] Comment on above: Performed By: #### 2 313839, 6700173, 5205176, 94425772, 8506700, 1277416 ####[facility] [address] [place] [address] Anion gap 13 mmol/L Normal 6-16 [facility] Comment on above: Performed By: #### 2 474543, 9552917, 3998109, 97290274, 0141039, 9662185 ####[facility] [address] [place] [address] Calcium 8.7 mg/dL Low 8.9-11.1 [facility] Comment on above: Performed By: #### 2 364678, 0031127, 8173930, 47444214, 3144458, 4499552 ####[facility] [address] [place] [address] Chloride 102 mmol/L Normal 101-111 [facility] Comment on above: Performed By: #### 2 880699, 9058474, 7247839, 45108951, 3292776, 5873545 ####[facility] [address] [place] [address] CO2 24 mmol/L Normal 21-31 [facility] Comment on above: Performed By: #### 2 981456, 4215301, 8779881, 08160598, 0306296, 0793941 ####[facility] [address] [place] [address] Glucose mass conc 174 mg/dL Normal 55-199 [facility] Comment on above: Result Comment: If t his glucose result represents a fasting glucose, interpretation should refer to the following reference range: 55-99 mg/dL Performed By: #### 2 331136, 7180521, 7884170, 10252696, 5212275, 5183712 ####[facility] [address] [place] [address] Potassium molar conc 3.1 mmol/L Low 3.5-5.3 [facility] Comment on above: Performed By: #### 2 067961, 0329353, 4634094, 88501285, 6049981, 9585363 ####[facility] [address] [place] [address] Sodium 136 mmol/L Normal 135-145 [facility] Comment on above: Performed By: #### 2 988816, 0756323, 7737760, 40424273, 1940400, 4406112 ####[facility] [address] [place] [address] ED Note-Nursingon 07-11-2017 ED Note-Nursing Suicidal precaution in place. Denies needs. Normal [facility] ED Note-Nursing Patient into room 8, assessed. Pt explains of suicidal thoughts to stab myself , patient also stating I want to kill my grandma . Pt states cutting her wrists in the past. Recentlt discharged from [facility] for the same problem. Pt put into gown. Understand lab work and urine specimen collection. Collected and tolerated. Clothes put at nursing station. Suicidal precaution in place.1944 Patient given sandwich/chips and pop. Suicidal precuations in place. Normal [facility] Ethanolon 07-11-2017 Ethanol mg/dL Normal <=7 [facility] Comment on above: Performed By: #### 2 890354, 7029142, 9642425, 51993350, 7559640, 8013217 ####[facility] [address] [place] [address] Progress Note-Nurseon 2016 Progress Note-Nurse Patient: PEPE MAGANA Age: 17 years Sex: Female : 2000 Associated Diagnoses: None Author: Shane YA, Sarah Chambers Progress Note Patient still speaking with SUE Chavez. Pt being calm and cooperative. Normal [facility] Progress Note-Nurse Patient: PEPE MAGANA Age: 17 years Sex: Female : 2000 Associated Diagnoses: None Author: Sarah Lnyn RN Progress Note Patient still speaking with Kathy from [facility], cooperative. Suicidal precautions in place. Normal [facility] Progress Note-Nurse Patient: PEPE MAGANA Age: 17 years Sex: Female : 2000 Associated Diagnoses: None Author: Sarah Lynn RN Progress Note Patient speaking with Kathy, [facility] counselor, at this time. Normal [facility] Salicylateon 07-11-2017 Salicylates mg/dL Low 03-29 [facility] Comment on above: Performed By: #### 2 630851, 3800749, 1418926, 63272120, 8178895, 5206626 ####[facility] [address] [place] [address] U BetaHcg Qualon 07-11-2017 CHORIOGONADOTROPIN. BETA SUBUNIT:SCNC:PT:URI NE:QN: Negative Normal [facility] Comment on above: Performed By: #### 2 666415, 1070768, 1423038, 35737713, 7499269, 5177482 ####[facility] [address] [place] [address] U Drug Screenon 07-11-2017 AMPHETAMINES:PRTHR: PT:URINE:ORD:SCREEN >1000 NG/ML Negative Normal Negative [facility] Comment on above: Result Comment: Nega tive Cutoff: <1000 ng/mL Performed By: #### 2 024880, 7254481, 1037274, 19069644, 6773844, 5809459 ####[facility] [address] [place] [address] OPIATES:PRTHR:PT:UR INE:ORD:SCREEN Negative Normal Negative [facility] Comment on above: Result Comment: Nega tive Cutoff: <300 ng/mL Performed By: #### 2 933743, 6222034, 7378044, 23022027, 1478978, 8916028 ####[facility] [address] [place] [address] PHENCYCLIDINE:PRTHR :PT:URINE:ORD:SCREE N>25 NG/ML Negative Normal Negative [facility] Comment on above: Result Comment: Nega tive Cutoff: <25 ng/mLThese drug screen results are to be used for medical (i.e., treatment) purposes only. Unconfirmed drug screening results must not be used for non-medical purposes (e.g., employment testing, legal testing). Performed By: #### 2 638520, 4770522, 9169493, 66185013, 5022824, 6984031 ####[place] [address] TETRAHYDROCANNABINO L:PRTHR:PT:URINE:OR D:SCREEN>50 NG/ML Negative Normal Negative [facility] Comment on above: Result Comment: Nega tive Cutoff: <50 ng/mL Performed By: #### 2 467047, 9959509, 0738166, 94586742, 2822161, 9473012 ####[address] [address] Urine, barbiturates presence Negative Normal Negative [facility] Comment on above: Result Comment: Nega tive Cutoff: <200 ng/mL Performed By: #### 2 324884, 6355921, 9031669, 02526855, 4616029, 0941403 ####[address] [address] Urine, benzodiazepines presence Negative Normal Negative [facility] Comment on above: Result Comment: Nega tive Cutoff: <200 ng/mL Performed By: #### 2 266048, 0610980, 5536755, 27021328, 2204996, 3995628 ####[facility] [address] [place] [address] Urine, cocaine presence Negative Normal Negative [facility] Comment on above: Result Comment: Nega tive Cutoff: <300 ng/mL Performed By: #### 2 908079, 1176700, 8412963, 06495556, 4848648, 6300741 ####[facility] [address] [place] [address] eGFRon 07-11-2017 eGFR (black) mL/min/{1.73_m2} Normal >=59 [facility] Comment on above: Order Comment: Order added by Discern Expert. Result Comment: eGFR is race adjusted. AA=. Performed By: #### 2 401030, 1870730, 6934511, 79155679, 4748461, 7845511 ####[facility] [address] [place] [address] eGFR (non-black) mL/min/{1.73_m2} Normal >=59 [facility] Comment on above: Order Comment: Order added by Discern Expert. Result Comment: Organic Extractions Technician jorge kidney disease could be indicated at eGFR's of less than 60 mL/min/1.73m2. Kidney failure is indicated at less than 15 mL/min/1.73m2. Performed By: #### 2 783305, 1783782, 7845291, 45894411, 2595099, 0399236 ####[facility] [address] [place] [address] Coding Summary.on 07-04-2017 Coding Summary. CODING DATE: 017 FINAL [facility] STATUS: Short-Term Hosp as IP PAYOR: Medicaid EA DESCRIPTION 0457 VENIPUNCTURE 0408 LEVEL I HEMATOLOGY TESTS 0410 URINALYSIS 0405 THERAPEUTIC DRUG MONITORING 0403 ORGAN OR DISEASE ORIENTED PANELS 0401 LEVEL II CHEMISTRY TESTS 0396 LEVEL I MICROBIOLOGY TESTS 0826 ACUTE ANXIETY & DELIRIUM STATES ADMIT DX: REASON FOR VISIT DX: R45.851 Suicidal ideations FINAL DX: PRINCIPAL: R45.851 Suicidal ideations SECONDARY: R45.850 Homicidal ideations Z79.899 Other usp (current) drug therapy PYMT PROC EAPG STAT DESCRIPTION DOCTOR NAME DATE NOTE: The code number assigned matches the documented diagnosis and / or procedure in the patient's chart. However, the narrative phrase printed from the coding software may appear abbreviated, or result in slightly different terminology. Revised Coded By: Clarice Moeller Revised Date Saved: 07/04/2017 12:43 pm Normal [facility] ED Clinical Summaryon 2016 ED Clinical Summary (Inserted Image. Silvia ble to display) [place] [id number] [place] [id number] ED Clinical SummaryPerson Information Name: CRIS MAGANA/Eitan Age: 17 Years : 2000 12:00 AM Sex: Female Language:Italian PCP: Eddie Oro M.D. Marital Status:Single Visit Id: Visit Reason:Suicidal thoughts; Suicidal thoughts; SUICIDAL Speciality: Acuity: 2 Enc Type: Emergency Med Service: Emergency Arrival:07/02/2017 6:50 PM Discharge: 07/02/2017 11:48 PM LOS: 000 04:58 Checkin:07/02/2017 6:50 PM Checkout: 07/02/2017 11:48 PM [facility] EVENTS:Event Name Event Status Request Date/Time Start Date/Time Complete Date/Time Arrive Complete 07/02/2017 6:50 PM 07/02/2017 6:50 PM 07/02/2017 6:50 PM Document Home Meds Complete 07/02/2017 6:50 PM 07/02/2017 7:14 PM 07/02/2017 7:14 PM Triage Complete 07/02/2017 6:50 PM 07/02/2017 7:08 PM 07/02/2017 7:08 PM Bed Assign Complete 07/02/2017 6:50 PM 07/02/2017 6:50 PM 07/02/2017 6:[address] Exam Complete 07/02/2017 6:50 PM 07/02/2017 6:56 PM 07/02/2017 6:56 PM RN Exam Complete 07/02/2017 6:50 PM 07/02/2017 7:14 PM 07/02/2017 7:14 PM Registration Complete 07/02/2017 6:56 PM 07/02/2017 7:02 PM 07/02/2017 7:02 PM Consult Request 07/02/2017 6:58 PM Pending Labs Complete 07/02/2017 6:58 PM 07/02/2017 8:01 PM Lab Complete 07/02/2017 6:58 PM 07/02/2017 8:01 PM Urine Collect Complete 07/02/2017 6:58 PM 07/02/2017 8:01 PM Patient Care Request 07/02/2017 6:58 PM Pending Labs Complete 07/02/2017 6:58 PM 07/02/2017 8:07 PM Lab Complete 07/02/2017 6:58 PM 07/02/2017 8:07 PM Urine Collect Complete 07/02/2017 6:58 PM 07/02/2017 8:07 PM Reg Complete Request 07/02/2017 7:02 PM Reg Bed Request Complete 07/02/2017 7:02 PM 07/02/2017 7:02 PM 07/02/2017 7:02 PM Pending Labs Complete 07/02/2017 7:16 PM 07/02/2017 7:16 PM 07/02/2017 7:38 PM Lab Complete 07/02/2017 7:16 PM 07/02/2017 7:16 PM 07/02/2017 7:38 PM Pending Labs Complete 07/02/2017 7:20 PM 07/02/2017 7:20 PM 07/02/2017 7:20 PM Lab Complete 07/02/2017 7:20 PM 07/02/2017 7:20 PM 07/02/2017 7:20 PM Pending Labs Inlab 07/02/2017 7:34 PM 07/02/2017 7:34 PM Lab Inlab 07/02/2017 7:34 PM 07/02/2017 7:[address] Exam Complete 07/02/2017 7:37 PM 07/02/2017 7:37 PM 07/02/2017 7:37 PM Registration Request 07/02/2017 7:37 PM Pending Labs Complete 07/02/2017 8:20 PM 07/02/2017 8:20 PM 07/02/2017 8:20 PM Pending Labs Complete 07/02/2017 8:20 PM 07/02/2017 8:20 PM 07/02/2017 8:20 PM Meds Admin Complete 07/02/2017 9:44 PM 07/02/2017 10:25 PM Patient Care Request 07/02/2017 11:32 PM Transfer Complete 07/02/2017 11:32 PM 07/02/2017 11:49 PM 07/02/2017 11:49 PM Discharge Complete 07/02/2017 11:49 PM 07/02/2017 11:49 PM 07/02/2017 11:49 PM ADDRESS:[address] [place] [id number] PHYS DOC NOTES: MEDICAL INFORMATION: Prescriptions Given:Home Meds Display albuterol (Pro-Air HFA CFC free 90 mcg/inh MDI) Refill(s) 0 citalopram (citalopram 20 mg oral tablet) Refills(s) 0 risperidone (risperidone 1 mg oral tablet) Refills(s) 0 PATIENT EDUCATION INFORMATION: Instructions: Follow up:DIAGNOSIS:Homicidal ideation; Medical clearance for psychiatric admission; Suicidal ideation; Suspected UTI Normal [facility] ED Note-Nursingon 07-03-2017 ED Note-Nursing This nurse is taking over care for patient at this time. Report recieved from Tamar Mullins RN. This nurse went to bedside and grandmother was at bedside. Grandmother stepped out of the room and this nurse asked the patient what was going on today. Pt sts I want to kill myself by cutting my wrists and I want to kill my grandmother. We do not get along and I am hearing voices telling me to kill myself, my grandmother and other people . This nurse asked who the other people are and pt sts ghosts . Pt sts she took a knife from home and cut both wrists. Pt has a superficial abrasion/redness on both wrists from a knife. Pt sts her suicidal ideation started yesterday but has had intermittent thoughts her whole life. Pt reports it not being safe for her grandmother to come back into room. Grandmother will not come back into room due to this statement. Pt sitting on cot being cooperative at this time. Pt watching TV. Everything removed from room by previous nurse. Pt's clothing behind nurses station and pt in gown.191 Pt continues to sit in room watching tv being cooperative. Pt given something to drink at this time.1944 This nurse spoke to grandmother out in the waiting room. Grandmother sts pt has had a long history of these suicidal episodes. Grandmother reports Pt's mother a year and a half ago. Grandmother sts pt declihned from there and was placed in a locked down dormatory healthcare facility in [place] for a year. Pt was recently moved to a long-term in [place] in June and has stayed at [facility] for 2 weeks since then and just got discharged a week ago. Grandmother sts pt has been dx with autism and aspergers disease. Pt is still currently living in a long-term with 24 hour care.2000 Pt sitting in bed on cot watching TV. Pt remins in view of nurses station. 2014 Pt sleeping in bed on cot. Pt remains in view of nurses station. 2029 [facility] now at bedside. Pt just given something to eat and drink. Pt remians in view of nurses station.2044 [facility]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 Rate [facility] NEGATED: Highlighted row Respiratory Rate [facility] Encounters Encounter Date Encounter Type Care Provider Facility Start: 09-11-2023 ([facility]) Pharmacogenic Armstrong Kelechi fontaine [facility] Start: 09-11-2023 End: 09-11-2023 ambulatory Joi Prieto [facility] Other Start: 08-15-2023 End: 08-16-2023 ambulatory [facility] Start: 08-13-2023 End: 08-14-2023 ambulatory [facility]on [facility] Start: 08-10-2023 End: 08-10-2023 ambulatory Santi Valenzuela Other [facility] Other Start: 08-10-2023 Telephone encounter Santi Torres [facility] Start: 08-09-2023 End: 08-09-2023 ambulatory Santi Valenzuela Other [facility] Other Start: 08-09-2023 Nutrition therapy Santi Valenzuela [facility] Start: 07-12-2023 End: 07-16-2023 Evaluation and management of inpatient Joi Prieto Facility:[facility] Start: 06-18-2023 End: 06-22-2023 Evaluation and management of inpatient Arbenlaura Webber Facility:[facility] Start: 06-18-2023 End: 06-22-2023 Evaluation and management of inpatient MD Joi Prieto Work Phone: [address] Work Phone: Start: 06-17-2023 ambulatory Joi Prieto Facility:[facility] Start: 06-13-2023 End: 06-14-2023 ambulatory [facility] Start: 06-13-2023 End: 06-13-2023 Subsequent hospital visit by physician Heath Ellis MOLD INJECTOR - TRIAL JUDGE Work Phone: [facility] Start: 04-12-2023 End: 04-13-2023 ambulatory [facility] Start: 02-28-2023 End: 03-01-2023 ambulatory [facility] Start: 02-28-2023 End: 02-28-2023 Subsequent hospital visit by physician Heath Ellis MOLD INJECTOR - TRIAL JUDGE Work Phone: [facility] Start: 01-18-2023 End: 01-19-2023 ambulatory [facility] Start: 01-18-2023 End: 01-18-2023 Subsequent hospital visit by physician Heath Ellis MOLD INJECTOR - TRIAL JUDGE Work Phone: [facility] Start: 01-17-2023 End: 01-18-2023 ambulatory [facility] Start: 01-17-2023 End: 01-17-2023 Subsequent hospital visit by physician Heath Ellis MOLD INJECTOR - TRIAL JUDGE Work Phone: [facility] Start: 10-25-2022 End: 10-26-2022 ambulatory HEATHMARS ELLIS [facility] Start: 10-25-2022 End: 10-25-2022 Subsequent hospital visit by physician Heath Ellis MOLD INJECTOR - TRIAL JUDGE Work Phone: [facility] Start: 07-13-2022 End: 07-13-2022 Subsequent hospital visit by physician Heath Ellis MOLD INJECTOR - TRIAL JUDGE Work Phone: [facility] Start: 05-02-2022 End: 05-02-2022 Subsequent hospital visit by physician Heath Ellis MOLD INJECTOR - TRIAL JUDGE Work Phone: [facility] Comment on above: Screen for STD (sexu ally transmitted disease) Start: 04-05-2022 ambulatory SELF PATIENT Facility:[facility] Start: 04-05-2022 End: 04-05-2022 Patient encounter procedure Hugo Pearce DMD, MD Work Phone: [facility] Comment on above: 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) Start: 02-01-2022 ambulatory UNKNOWN PROVIDER [facility] Start: 02-01-2022 End: 02-01-2022 Patient encounter procedure Hugo Pearce DMD, MD Work Phone: [facility] Comment on above: 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); Body mass index (BMI) 45.0-49.9, adult (HCC) Start: 10-12-2021 End: 10-12-2021 Subsequent hospital visit by physician Joi Prieto MD Work Phone: [facility] Start: 05-18-2021 End: 05-18-2021 Subsequent hospital visit by physician Joi Prieto MD Work Phone: [facility] Start: 04-13-2021 End: 04-13-2021 Subsequent hospital visit by physician Joi Priteo MD Work Phone: [facility] Start: 02-02-2021 End: 02-02-2021 Subsequent hospital visit by physician Jay Gomez DO Work Phone: [facility] Start: 04-27-2020 End: 04-27-2020 Subsequent hospital visit by physician Jay Gomez [facility] Start: 04-15-2020 End: 04-15-2020 Patient encounter procedure KLEBER PRIETO Facility: Start: 09-14-2019 End: 09-14-2019 Patient encounter procedure DOCTOR MARSHA Facility: Start: 02-27-2018 End: 02-27-2018 Ambulatory Gabo Miranda Facility:[facility] Start: 12-16-2017 Emergency department patient visit [place] [facility] Start: 12-05-2017 End: 12-06-2017 Ambulatory [facility] Facility:[facility] Start: 12-03-2017 End: 12-04-2017 Ambulatory Gabo Miranda Facility:[facility] Start: 12-03-2017 End: 12-04-2017 Ambulatory Gabo [facility] Facility:[facility] Start: 11-30-2017 End: 12-01-2017 Emergency department patient visit Nodr No Doctor Assigned Facility:[facility] Start: 11-30-2017 End: 11-30-2017 Ambulatory [facility] Facility:[facility] Start: 11-27-2017 End: 11-30-2017 Emergency department patient visit Nodr No Doctor Assigned Facility:[facility] Start: 11-22-2017 End: 11-23-2017 Emergency department patient visit roddy Peytonlorenza Facility:[facility] Start: 10-16-2017 End: 10-17-2017 Emergency department patient visit Barbara [place] [facility] Start: 10-08-2017 End: 10-09-2017 Ambulatory [facility] Facility:[facility] Start: 10-02-2017 End: 10-02-2017 Departed Referred Carolina [facility] Start: 09-20-2017 End: 09-21-2017 Ambulatory [facility] Facility[facility] Start: 09-18-2017 End: 09-19-2017 Ambulatory ERIC ESPOSITO Facility:[facility] Start: 09-15-2017 End: 09-15-2017 Emergency department patient visit Barbara Mcknight Facility[facility] Start: 09-03-2017 End: 09-04-2017 Ambulatory Barbara Mcknight Facility:[facility] Start: 08-21-2017 End: 08-21-2017 Patient encounter procedure Carolina Welch [facility] Start: 08-07-2017 End: 08-07-2017 Emergency department patient visit Barbara Mcknight Facility:[facility] Start: 08-06-2017 End: 08-06-2017 Emergency department patient visit Barbara Mcknight Facility:[facility] Start: 07-29-2017 End: 07-30-2017 Emergency department patient visit Barbara Mcknight Facility:[facility] Start: 07-26-2017 Emergency department patient visit Barbara Mcknight Facility:[facility] Start: 07-25-2017 End: 07-25-2017 Emergency department patient visit Barbara Mcknight Facility:[facility] Start: 07-24-2017 End: 07-24-2017 Emergency department patient visit Barbara Mcknight Facility:[facility] Start: 07-15-2017 End: 07-24-2017 Evaluation and management of inpatient BRIGIDO Cano [facility] Start: 07-14-2017 End: 07-15-2017 Emergency department patient visit Barbara Mcknight Facility:[facility] Start: 07-12-2017 End: 07-12-2017 Emergency department patient visit Barbara Mcknight Facility:[facility] Start: 07-11-2017 End: 07-12-2017 Emergency department patient visit Barbara Mcknight Facility:[facility] Start: 07-02-2017 End: 07-03-2017 Emergency department patient visit Makmechelle Martínez Preethi Facility:[facility] Start: 06-10-2017 End: 06-11-2017 Emergency department patient visit Ryan Kevin Facility:[facility] Start: 05-14-2016 End: 05-14-2016 Emergency department patient visit Carolina [facility] Start: 05-03-2016 End: 05-09-2016 Evaluation and management of inpatient Carolina [facility] Start: 04-11-2016 End: 04-11-2016 Emergency department patient visit Carolina [facility] Start: 04-08-2016 End: 04-08-2016 Emergency department patient visit Carolina Welch [facility] Start: 04-06-2006 End: 04-05-2006 Emergency department patient visit Carolina Welch [facility] Start: 03-31-2006 Registered Recurring Carolina Lomas [facility] Start: 03-01-2006 End: 03-30-2006 Discharged Recurring Carolina [facility] Start: 02-06-2006 End: 02-28-2006 Discharged Recurring Carolina Welch [facility] Procedures Date Procedure Procedure Detail Performing Clinician Start: 06-13-2023 Comprehensive metabo lic panel Lissette Pierreuger MOLD INJECTOR Work Phone: Start: 02-28-2023 Comprehensive metabo lic panel Lissette Pierreuger MOLD INJECTOR Work Phone: Start: 01-18-2023 Comprehensive metabo lic panel Lissette Paulinor MOLD INJECTOR Work Phone: Start: 10-25-2022 Basic metabolic pane l calcium total Lissette Pierreuger MOLD INJECTOR Work Phone: Start: 10-25-2022 Lipid panel Lissette Pierre uger MOLD INJECTOR Work Phone: Start: 07-13-2022 Basic metabolic pane l calcium total Heath Ellis MOLD INJECTOR - TRIAL JUDGE Work Phone: Start: 07-13-2022 Lipid panel Heath joseph MOLD INJECTOR - TRIAL JUDGE Work Phone: Start: 04-05-2022 extraction, erupted tooth or exposed root (elevation and/or forceps removal) Nestor Jennings DMD, MD Work Phone: Start: 04-05-2022 panoramic radiograph ic image Nestor Jennings DMD, MD Work Phone: Start: 04-05-2022 removal of impacted tooth - soft tissue Nestor Jennings DMD, MD Work Phone: Start: 10-12-2021 Basic metabolic pane l calcium total Irina Noguera MD Work Phone: Start: 10-12-2021 Lipid panel Irina uriostegui MD Work Phone: Start: 05-18-2021 Potassium serum plasma/whole blood Heath Ellis MOLD INJECTOR - TRIAL JUDGE Work Phone: Start: 04-13-2021 Basic metabolic pane l calcium total Irina Noguera MD Work Phone: Start: 04-13-2021 Lipid panel Irina uriostegui MD Work Phone: Start: 04-27-2020 Urnls dip stick/tabl et reagent auto microscopy Joi Prieto Work Phone: Start: 10-07-2019 Microscopic observat ion [Identifier] in Cervix by Cyto stain Joi Prieto MD Work Phone: Start: 10-02-2017 Urine culture Carolina theodore Start: 07-23-2017 DISCHARGE PATIENT BRIGIDO RHODES Start: 07-16-2017 FULL CODE BRIGIDO GARDNER Start: 07-15-2017 IP CONSULT TO HISTOR Y AND PHYSICAL ROSALESTello GARDNER Start: 07-15-2017 , URINE KUTello RISK MANAGER Start: 07-15-2017 DIET GENERAL KUL GARDNER Start: 07-15-2017 SUICIDE PRECAUTIONS KUL GARDNER Start: 07-15-2017 PATIENT STATUS (DIRECT) BRIGIDO GARDNER Plan of Treatment Date Care Activity Detail Author Start: 2048 Shingles (RZV) Vaccine (1 of 2) Shingles (RZV) [facility] ([facility] 2) [facility] Start: 06-13-2024 GFR test (Diabetes, CKD 3-4, OR last GFR 15-59) GFR test (Diabetes, CKD 3-4, OR last GFR 15-59) [facility] Start: 06-13-2024 Hemoglobin A1c measurement A1C test (Diabetic or Prediabetic) [facility] [employer] Start: 04-12-2024 [facility] Start: 02-29-2024 GFR test (Diabetes, CKD 3-4, OR last GFR 15-59) GFR test (Diabetes, CKD 3-4, OR last GFR 15-59) [facility] Start: 01-19-2024 GFR test (Diabetes, CKD 3-4, OR last GFR 15-59) GFR test (Diabetes, CKD 3-4, OR last GFR 15-59) [facility] [employer] Start: 10-25-2023 GFR test (Diabetes, CKD 3-4, OR last GFR 15-59) GFR test (Diabetes, CKD 3-4, OR last GFR 15-59) [facility] Start: 10-25-2023 Hemoglobin A1c measurement A1C test (Diabetic or Prediabetic) [facility] Start: 10-25-2023 Lipid panel Lipids [facility] [employer] Start: 08-06-2023 End: 08-06-2023 Patient encounter procedure 08/06/2023 2:10 PM EST Office Visit [facility] Part of [address] [place] [id number] Raiza Gutierres APRN - CNM [address] [place] [address] [address] [place] [address] *NA [facility] Part [facility] Comment on above: *NA Start: 07-13-2023 Hemoglobin A1c measurement A1C test (Diabetic or Prediabetic) [facility] Start: 07-13-2023 Lipid panel Lipids [facility] Start: 06-22-2023 [facility] Start: 06-18-2023 Hospital admission [facility] Start: 05-07-2023 End: 05-07-2023 Patient encounter procedure 05/07/2023 Office Visit Obstetrics and Gynecology Raiza Gutierres APRN - JEANINE [address] [facility] [address] [place], [place] [id number] [facility] Part of [facility] Start: 05-02-2023 Depression Monitoring Depression Monitoring [facility] Start: 05-02-2023 Screening for Chlamydia trachomatis Chlamydia/GC screen [facility] Start: 05-01-2023 Influenza vaccination [facility] Start: 04-28-2023 Lipid panel Lipids [facility] Start: 10-26-2022 Hemoglobin A1c measurement A1C test (Diabetic or Prediabetic) [facility] Start: 10-07-2022 Screening for malignant neoplasm of cervix [facility] Start: 06-01-2022 Influenza vaccination Flu vaccine (#1) [facility] Start: 05-01-2022 Influenza vaccination [facility] Start: 04-27-2022 Thyroid stimulating hormone measurement TSH testing [facility] Start: 04-13-2022 Hemoglobin A1c measurement A1C test (Diabetic or Prediabetic) [facility] Start: 04-13-2022 Lipid panel Lipid screen [facility] Start: 03-20-2022 End: 03-20-2022 Patient encounter procedure [facility] Start: 02-02-2022 Hemoglobin A1c measurement A1C test (Diabetic or Prediabetic) [facility] Work Phone: Start: 02-02-2022 Lipid panel Lipid screen [facility] Work Phone: Start: 06-01-2021 Influenza vaccination [facility] Start: 02-09-2021 End: 02-09-2021 Patient encounter procedure 02/09/2021 Office Visit Obstetrics and Gynecology Raiza Gutierres APRN - JEANINE [address] [place] [address] [address] [place] [address] [phone] [facility] Start: 10-29-2020 HbA1c (Bld) [Mass fraction] A1C test (Diabetic or Prediabetic) [place], [place] Start: 10-29-2020 Lipid panel Lipid screen [place], [place] Start: 10-07-2020 Screening for Chlamydia trachomatis Chlamydia screen [facility] Start: 06-01-2020 Influenza vaccination Flu vaccine (#1) [place] Start: 10-23-2019 Thyroid stimulating hormone measurement TSH testing [facility] [employer] Phone: Start: 10-23-2019 TSH Qn TSH testing [place], [place] Start: 08-31-2019 DTaP/Tdap/Td vaccine (6 - Td or Tdap) DTaP/Tdap/Td vaccine (6 - Td or Tdap) [facility] Start: 08-31-2019 DTaP/Tdap/Td vaccine (6 - Td) DTaP/Tdap/Td vaccine (6 - Td) [place], [place] Start: 08-31-2019 Tetanus vaccination [facility] Start: 2019 Screening for malignant neoplasm of cervix Pap Smear [facility] Start: 2016 Diabetic microalbuminuria test Diabetic microalbuminuria test [place], [place] Start: 2016 Diabetic retinal exam Diabetic retinal exam [facility] Start: 2016 Glaucoma screening Diabetic retinal exam [facility] Start: 2016 Hepatitis C screening [facility] Start: 2016 Screening for Chlamydia trachomatis STI Screening (Age 18-24) [facility] Start: 2016 Urine screening for protein [facility] Start: 2014 COVID-19 Vaccine (1) COVID-19 Vaccine (1) [facility] [employer] Phone: Start: 2014 Meningococcal B (Bexsero,OMV) Vaccine (Optional,16-23 years) (#1) Meningococcal B (Bexsero,OMV) Vaccine (Optional,16-23 years) (#1) [facility] Start: 2013 HIV screening HIV Test [facility] Start: 2010 COVID-19 Vaccine (1) COVID-19 Vaccine (1) [facility] [employer] Phone: Start: 2010 Depression Monitoring Depression Monitoring [facility] Start: 2008 Diabetic foot examination Diabetic foot exam [facility] Start: 2008 Diabetic retinal exam Diabetic retinal exam [place], [place] Start: 2004 Pneumococcal 0-64 years Vaccine (1 - PCV) Pneumococcal 0-64 years Vaccine (1 - PCV) [facility] Start: 2004 Pneumococcal 0-64 years Vaccine (1 of 1 - PPSV23) Pneumococcal 0-64 years Vaccine (1 of 1 - PPSV23) [facility] [place], [place] Start: 2004 Pneumococcal 0-64 years Vaccine (1 of 2 - PPSV23) Pneumococcal 0-64 years Vaccine (1 of 2 - PPSV23) [facility] Start: 2003 COVID-19 Vaccine (1) COVID-19 Vaccine (1) [facility] Start: 01-14-2002 Hepatitis B vaccine (2 of 3 - 3-dose series) Hepatitis B vaccine (2 of 3 - 3-dose series) [facility] Start: 01-14-2002 Hepatitis B vaccine (2 of 3 - Risk 3-dose series) Hepatitis B vaccine (2 of 3 - Risk 3-dose series) [facility] Start: 1998 COVID-19 Vaccine (#1) COVID-19 Vaccine (#1) [facility] Start: 1998 Hepatitis C screening Hepatitis C screen [facility] End: 05-02-2022 C.trachomatis N.gonorrhoeae DNA [facility] Work Phone: Comment on above: 1 Occurrences starting 05/02/2022 until 05/02/2022 End: 06-13-2023 Comprehensive metabolic 2000 panel - Serum or Plasma [facility] Work Phone: Comment on above: Once for 1 Occurrences starting 06/13/20 until 06/13/2023 End: 02-28-2023 Hemoglobin A1c/Hemoglobin.total in Blood [facility] Work Phone: Comment on above: Once for 1 Occurrences starting 02/29/20 until 02/28/2023 End: 06-13-2023 Hemoglobin A1c/Hemoglobin.total in Blood [facility] Comment on above: Once for 1 Occurrences starting 06/13/20 until 06/13/2023 Patient Education Schizoaffectiv e Disorder (DC) [facility] DC Instructions [facility] Work Phone: Patient referral [facility] Work Phone: Immunizations Immunization Date Immunization Notes Care Provider Domingo zuleta 02-24-2011 human papilloma viru s vaccine, quadrivalent Hugo Pearce DMD, MD Work Phone: [facility] 11-17-2010 human papilloma viru s vaccine, quadrivalent Hugo Pearce DMD, MD Work Phone: [facility] 08-03-2010 human papilloma viru s vaccine, quadrivalent Hugo Pearce DMD, MD Work Phone: [facility] 08-31-2009 Meningococcal, MCV4, unspecified conjugate formulation(groups A, C, Y and W-135) Hugo Pearce DMD, MD Work Phone: [facility] 08-31-2009 tetanus toxoid, redu jero diphtheria toxoid, and acellular pertussis vaccine, adsorbed Hugo Pearce DMD, MD Work Phone: [facility] 08-31-2009 varicella virus vaccine Just in Portia EATON MD Work Phone: [facility] 10-31-2004 varicella virus vaccine Just in Portia EATON MD Work Phone: [facility] 1998 hepatitis B vaccine, pediatric or pediatric/adolescent dosage Hugo Pearce DMD, MD Work Phone: [facility] Payers Date Payer Category Payer Self-pay 2018 Medicaid MEDICAID [facility] DEPT OF JOB [id number] 2018-Present [phone] [address] [place] [address] [id number] 2017 Medicaid 1998 Unknown [id number] 1998 Unknown [id number] 1998 Unknown [id number] 1998 Unknown [id number] 1959 Medicaid [id number] 1949 Unknown [id number] 1949 Unknown [id number] 1949 Unknown [id number] 1949 Unknown [id number] 1949 Unknown [id number] 1949 Unknown [id number] 1949 Unknown [id number] 1949 Unknown [id number] Medicaid [id number] Unknown [id number] Unknown [id number] Unknown [id number] Unknown [id number] Social History Date Type Detail Facility Start: 10-07-2019 End: 05-02-2022 Tobacco smoking status NHIS Former smoker [facility] Start: 10-07-2019 End: 05-02-2022 Cigarettes smoked current (pack per day) - Reported [facility] [place] [place] Start: 10-07-2019 End: 05-02-2022 Tobacco use and exposure Never used [employer] [facility] Start: 10-07-2019 End: 05-02-2022 Alcohol intake Current drinker of alcohol (finding) [employer] [facility] Start: 1998 Sex Assigned At Not on file [employer] [facility] Start: 11-06-2013 Tobacco Comment Mother smokes [facility] Work Phone: Start: 04-22-2022 End: 05-02-2022 Exposure to SARS-CoV-2 (event) Not sure [facility] Start: 02-01-2022 End: 06-18-2023 Tobacco smoking status NHIS [facility] History of tobacco use Current smoker [facility] Work Phone: History of tobacco use Cigarette Smoker [facility] Work Phone: Start: 05-02-2022 Tobacco use panel [facility] [employer] Patient Health Questionnaire 9 item (PHQ-9) total score [Reported] 10 [facility] Start: 1998 Sex Assigned At Female [facility] Medical Equipment Procedure Code Equipment Code Equipment Origin al Text Equipment Identifier Dates NovoFine Plus Pe n Needle 32G X 4 MM Start: 08-09-2023 Goals Date Patient Goal Desired Activity /State Functional Status Date Assessment Result Facility 06-22-2023 Functional status Patient at [facility] Work Phone: Mental Status Date Assessment Result Facility 06-22-2023 Cognitive function Cognitive Sta tus Patient at [facility] Work Phone: Clinical Notes 02-02-2021 to 09-11-2023 Note Date & Type Note Facility 09-11-2023 Evaluation note Encounter Date Diagnosis Assessment Notes Aug, Encounter for pharmacogenetic testing (ICD-10 - Z13.79) Patient presented today for uncovering rare obesity pharmacogenetics test collection per the request of Dr. Santi Valenzuela. Patient signed all required paperwork and consents for buccal swab collection and testing. Patient confirms they have not eaten, drank, chewed gum or smoked in the last 30 minutes. Buccal swab was collected and packaged according flight test shop mechanic instructions. Sample to be shipped to [facility]. Patient has no questions at this time. Seen by: Patti Mcnamara PharmD Time spent with patient: 10 minutes. [employer] Other 11-09-2023 Evaluation note* Encounter Date Diagnosis Assessment Notes Treatment Notes Treatment Clinical Notes Aug, Severe obesity (BMI >= 40) (ICD-10 - E66.01) Consultation date 08-09-2023, weight (pounds): 343.8Plan is to take a weight centric approach to patient care in the treatment of excess adiposity and patient's weight related comorbidities.-Discu ssed the impact of excess adiposity on overall health and increased risk of associated health conditions-Discussed treatment options including lifestyle interventions, such as calorie reduction and physical activity, and use of medications as an adjunct to amplify adherence to healthy behavior change-Discussed benefits, risks and side effects of medication. After informed discussion, patient would like to proceedOrders:-Initi ate Victoza 0.6 mg once daily and titrate up to 1.8 mg once daily. Potentially covered through Medicaid -Accompanied by grandmother and group exercise class instructor -Avoid sugary sweet beverages-Prediabete s, schizoaffective disorder, ADHD, OCD, manic depression -Patient would like referral to bariatric surgery to discuss options -Referral to [facility] bariatric surgery via email -Follow up in clinic in 10 weeksThis note was created with voice recognition software. Please excuse errors in hydropulper. Aug, Dietary surveillance and counseling (ICD-10 - Z71.3) Discussed in detail high-protein, high-fiber, low-fat nutrition plan favoring calorie deficit and lean tissue mass preservation.-Lean protein sources at each meal supplemented with nutrient rich, low calorie density carbohydrates-Focus on consuming calories earlier in the day versus later; breakfast and lunch should be largest meals-Evening meal should be high in protein and low in carbohydrate to maximize lipolysis overnight-Aim for a minimum of 30 g of protein per meal with breakfast, lunch and dinner with total daily intake reaching at least 100 g-If needed, supplement with whey protein powder or premade protein drink low in carbohydrate and low in fat-If hungry between meals, consider protein snack low in carbohydrate and low in fat Aug, Exercise counseling (ICD-10 - Z71.89) Absolute HGS at time of consultation (pounds): 43.6Discussed in detail exercise interventions to promote lean tissue mass preservation during calorie restriction.-In addition to regularly scheduled endurance and resistance exercise, perform bouts of resistance exercise prior to meals using body weight, resistance bands or dumbbells/weights-Fo llowing meals, consider aerobic exercise, such as brisk walking, to improve blood sugars and to mitigate hyperinsulinemia-Has access to gym and long-term Aug, Prediabetes (ICD-10 - R73.03) On metformin Aug, Schizoaffective disorder (ICD-10 - F25.9) On pharmacotherapy 1 S. admissions Avoid phentermine Aug, Autism (ICD-10 - F84.0) Can consider genetic obesity panel next appointment [employer] Other 09-21-2023 Progress note Author Arben Webber [facility] June 21, 2023 11:38am Note Date/Time June 21, 2023 11:38am [facility] [address] [place] [address] Psychiatry Progress Note Signed Patient: Cris Magana MR#: [id number] : 2000 Acct:[id number] Age/Sex: 23 / F Adm Date: 3 Loc: 1S Room: [address] [place] [address] Type : ADM IN Attending Dr: Arben Webber MD Copies to: ~ Date of Service: 06/21/2023 Subjective Subjective Narrative: Ms. Magana reported that she did not sleep well last night. She stated that shestill experiencing some hallucinations. She did take her Invega booster this morning. She stated that her appetite has been good. She reported that her suicidality has been improving. Her appetite has been normal. Mental Status Exam: Appearance: grossly normal Mental Status: mental status grossly normal Mood: Improving mood Affect: Improving affect Speech and Movement: speech and movement normal and speech clear Attitude: cooperative Thought Process: normal Thought Content: Reported hallucinations, no homicidality, reported improving suicidality Insight: fair Judgment: fair Exam Physical Exam Vital Signs: Temp Pulse Resp BP Pulse Ox O2 Del Method 97.3 F L 103 H 17 127/79 95 Room Air 06/21/23 07:30 06/21/23 07:30 06/21/23 07:30 06/21/23 07:30 06/21/23 07:30 06/21/23 09:00 Abnormal Involuntary Movement Dental Status Are dentures usually worn?: No Assessment/Plan Assessment/Plan (1) Schizoaffective disorder: Code(s): F25.9 - Schizoaffective disorder, unspecified Status: Acute (2) Autism: Code(s): F84.0 - Autistic disorder Status: Acute Plan Patient reported improvement of her suicidal thoughts Continue Invega 3 mg at bedtime Patient received Invega Sustenna 234 on 06/18/2023. Patient received Invega Sustenna 156 mg on 06/21/2023 Continue Latuda 120 mg daily, and prazosin 2 mg at bedtime Continue Zoloft 150 mg daily and BuSpar 10 mg twice a day for anxiety Continue to monitor mental status Encourage group participation and medication compliance Risk benefits alternatives explained Documented By: Arben Webber MD 06/21/231136 Signed By: <Electronically signed by Arben Webber MD> 06/21/23 [address] [facility] Work Phone: 1(295) 782-641709-20-2023 Progress note Author Arben Webber [facility] June 20, 2023 12:53pm Note Date/Time June 20, 2023 12:53pm [facility] [address] [place] [address] Psychiatry Progress Note Signed Patient: Cris Magana MR#: [id number] : 2000 Acct:[id number] Age/Sex: 23 / F Adm Date: 3 Loc: Room: 1Q5073-5 Type : ADM IN Attending Dr: Arben Webber MD Copies to: ~ Date of Service: 06/20/2023 Subjective Subjective Narrative: Ms. Magana reported that she is not doing so well. She stated that she still has suicidal thoughts and has been having bad dreams about killing herself. Shedenied any side effects with the current medication. She reported that she has been experiencing hallucinations telling her to hurt herself. Mental Status Exam: Appearance: grossly normal Mental Status: mental status grossly normal Mood: dysthymic and anxious mood Affect: dysphoric affect Speech and Movement: speech and movement normal and speech clear Attitude: cooperative Thought Process: normal Thought Content: Reported command hallucinations, no homicidality, reported suicidality Insight: fair Judgment: fair Exam Physical Exam Vital Signs: Temp Pulse Resp BP Pulse Ox O2 Del Method 97.3 F L 91 H 18 128/83 97 Room Air 06/20/23 07:30 06/20/23 07:30 06/19/23 21:53 06/20/23 07:30 06/20/23 07:30 06/20/23 07:30 Abnormal Involuntary Movement Dental Status Are dentures usually worn?: No Assessment/Plan Assessment/Plan (1) Schizoaffective disorder: Code(s): F25.9 - Schizoaffective disorder, unspecified Status: Acute (2) Autism: Code(s): F84.0 - Autistic disorder Status: Acute Plan Patient continues to report depression and suicidal ideation. Reported that sheis hearing voices telling her to kill herself We will restart Invega 3 mg at bedtime Patient received Invega Sustenna 234 on 06/18/2023. Plan for using booster on Continue Latuda 120 mg daily, and prazosin 2 mg at bedtime Continue Zoloft 150 mg daily and BuSpar 10 mg twice a day for anxiety Continue to monitor mental status Encourage group participation and medication compliance Risk benefits alternatives explained Documented By: Arben Webber MD 06/20/231251 Signed By: <Electronically signed by Arben Webber MD> 06/20/231252 [facility] Work Phone: 1(375) 230-629009-19-2023 Progress note Author Arben Webber [facility] June 19, 2023 1:56pm Note Date/Time June 19, 2023 1:56pm [facility] [address] [place] [address] Psychiatry Progress Note Signed Patient: Cris Magana MR#: [id number] : 2000 Acct:[id number] Age/Sex: 23 / F Adm Date: 3 Loc: Room: [address] [place] [address] Type : ADM IN Attending Dr: Arben Webber MD Copies to: ~ Date of Service: 06/19/2023 Subjective Subjective Narrative: Ms. Magana reported that she still feels awful. She reported that she still having some suicidal thoughts. She reported that she is having a lot of anxietyand does not want to go back to the long-term. She reported that people are mean to her there. She is tolerating current medications at this time. Mental Status Exam: Appearance: grossly normal Mental Status: mental status grossly normal Mood: dysthymic and anxious mood Affect: dysphoric affect Speech and Movement: speech and movement normal and speech clear Attitude: cooperative Thought Process: normal Thought Content: Denied hallucinations, no homicidality, reported suicidality Insight: fair Judgment: fair Exam Physical Exam Vital Signs: Temp Pulse Resp BP Pulse Ox O2 Del Method 98.1 F 103 H 16 110/75 92 L Room Air 06/19/23 08:00 06/19/23 08:00 06/18/23 16:53 06/19/23 08:00 06/19/23 08:00 06/19/23 08:00 Objective Labs Labs: Abnormal Labs 06/19/23 06:00 Cholesterol 113 L Abnormal Involuntary Movement Dental Status Are dentures usually worn?: No Assessment/Plan Assessment/Plan (1) Schizoaffective disorder: Code(s): F25.9 - Schizoaffective disorder, unspecified Status: Acute (2) Autism: Code(s): F84.0 - Autistic disorder Status: Acute Plan Patient presenting due to concern for depression and suicidal ideation We will restart Invega 3 mg at bedtime Patient received Invega Sustenna 234 on 06/18/2023. Plan for using booster Continue Latuda 120 mg daily, and prazosin 2 mg at bedtime Increase Zoloft 150 mg daily and add BuSpar 10 mg twice a day for anxiety Continue to monitor mental status Encourage group participation and medication compliance Risk benefits alternatives explained Documented By: Arben Webber MD 06/19/23 5589 Signed By: <Electronically signed by Arben Webber MD> 06/19/23 [address] [facility] Work Phone: 1(757) 913-927909-18-2023 History and physical note Author Arben Webber [facility] June 18, 2023 2:56pm Note Date/Time June 18, 2023 2:55pm [facility] [address] [place] [address] Psychiatry H&P Signed Patient: Cris Magana MR#: [id number] : 2000 Acct:[id number] Age/Sex: 23 / F Adm Date: 3 Loc: 1S Room: 8P6838-2 Type: ADM IN Attending Dr: Arben Webber MD Copies to: MD Joi Richmond MD~ Date of Service: 06/18/2023 HPI History of Present Illness History of present illness: Ms. Magana is a 23 year old female who presented due to concern for depression and suicidal ideation. Upon assessment, patient reported she was depressed when she was at her grandmother's house. She states that she came back to the long-term and had suicidal thoughts and wanted to cut herself. She reported that she has been keeping up with her medications but reported that recently she has been refusingbut does not say why. She reported that she has been feeling depressed but denied any changes with her sleep or appetite. She does report some feelings ofhopelessness and some suicidal thoughts. She does admit to having some hallucinations. Past psych history: Denies, but history of some psychotic symptoms and past psychiatric hospitalizations. Was diagnosed with schizoaffective disorder Past hospitalizations: Denies, but was hospitalized back in 2019 Past suicide attempts: There is documentation of prior suicide attempts Family psych history: Unknown Previous medications: Cannot recall. Currently on Invega. Chart review also revealed Latuda and Zoloft and prazosin Alcohol and drug use: Denied any significant issues Living: In long-term Employment: Unemployed Review of symptoms: Constitutional: Denies chills and Denies fever(s) Eyes: Denies change in vision ENT: Denies abnormal hearing Cardiovascular: Denies chest pain Respiratory: Denies chest congestion and Denies cough Gastrointestinal: Denies change in bowel habits Genitourinary: Denies dysuria Musculoskeletal: Denies atrophy and Denies myalgias Integumentary/Breasts: Denies dry skin Neurologic: Denies abnormal gait and Denies abnormal movements Psychiatric: Reports depression and suicidal ideation Physical exam: Const: cooperative Nutritional Appearance: average body habitus Orientation: alert, awake and oriented x3 HEENT: Head normal to inspection, hearing grossly normal bilaterally, external nose normal, face symmetric Eyes: appearance normal, both eyes and all related structures, sclerae normal Neck: normal visual inspection and full ROM Resp: normal respiratory effort, able to speak in complete sentences and symmetric chest movement Cardio: regular rate GI: normal to inspection and non-distended : deferred Skin: no rashes or lesions noted Neuro: CNI: Normal olfaction CNI: normal olfaction CNII: Visual raines intact, CNIII,IV,: EOM intact, no nystagmus. Pupils equal, round, reactive to light and accommodation, CNV: Sensation intact to light touch, CNVII: Raises eyebrows, smile/frown, puff out cheeks symmetrically, CNVIII: Hearing intact bilaterally, CNIX,X: Voice normal, soft palate elevation normal, symmetrical, CNXI: Shoulder shrug strong, equal bilaterally, CNXII: Tongue protrusion midline, movement symmetrical. Extrem: normal to inspection and full ROM Mental Status Exam: Appearance: grossly normal Mental Status: mental status grossly normal Mood: dysthymic mood Affect: dysphoric affect Speech and Movement: speech and movement normal and speech clear Attitude: cooperative Thought Process: normal Thought Content: Denied hallucinations, no homicidality, reported suicidality Insight: fair Judgment: fair [facility] Medical History (Updated 06/18/23 @ 14:54 by Arben Webber MD) ADHD Adult hypothyroidism Autism Diabetes PTSD (post-traumatic stress disorder) Recurrent UTI Surgical History No pertinent past surgical history Family History Mother Diabetes mellitus, type 2 Social History Smoking Status: Never smoker Substance Use Type: None 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 Medications and Allergies Allergies bee venom protein (honey bee) Allergy (Verified 06/14/19 00:59) Unknown Reaction Home Medications atorvastatin 10 mg tablet (Lipitor) 10 mg PO DAILY 06/02/19 [History Confirmed 06/18/23] docusate sodium 100 mg capsule (Colace) 100 mg PO DAILY 06/02/19 [History Confirmed 06/18/23] levothyroxine 50 mcg tablet (Synthroid) 50 mcg PO DAILY 06/02/19 [History Confirmed 06/18/23] loperamide 2 mg capsule 2 mg PO Q2H PRN Diarrhea 06/02/19 [History Confirmed 06/18/23] medroxyprogesterone 150 mg/mL intramuscular suspension (Depo-Provera) 150 mg IM [id number] 06/02/19 [History Confirmed 06/18/23] metformin 500 mg tablet 500 mg PO BID.WITH.MEALS 06/02/19 [History Confirmed 06/18/23] omeprazole 20 mg capsule,delayed release 20 mg PO DAILY 30 days #30 caps 06/23/19 [Rx Confirmed 06/18/23] paliperidone 3 mg tablet,extended release 24 hr 3 mg PO QHS 30 days #30 tabs 06/23/19 [Rx Confirmed 06/18/23] prazosin 1 mg capsule 2 mg PO QHS 30 days #60 caps 06/23/19 [Rx Confirmed 06/18/23] sertraline 100 mg tablet 100 mg PO DAILY 30 days #30 tabs 06/23/19 [Rx Confirmed 06/18/23] atorvastatin 10 mg tablet 10 mg PO DAILY 06/18/23 [History Confirmed 06/18/23] lurasidone 120 mg tablet 120 mg PO DAILY 06/18/23 [History Confirmed 06/18/23] white petrolatum (Petroleum Jelly topical) 1 applic topical BID 06/18/23 [History Confirmed 06/18/23] Exam Physical Exam Vital Signs: Temp Resp BP Pulse Ox O2 Del Method 97.6 F 18 126/73 94 L Room Air 06/18/23 11:03 06/18/23 11:03 06/18/23 11:03 06/18/23 11:03 06/18/23 11:03 Abnormal Involuntary Movement Dental Status Are dentures usually worn?: No Assessment/Plan (1) Schizoaffective disorder: Code(s): F25.9 - Schizoaffective disorder, unspecified Status: Acute (2) Autism: Code(s): F84.0 - Autistic disorder Status: Acute Plan Patient presenting due to concern for depression and suicidal ideation We will restart Invega 3 mg at bedtime with plan of using long-acting injection Restart Zoloft 100 mg daily, Latuda 120 mg daily, and prazosin 2 mg at bedtime Continue to monitor mental status Encourage group participation and medication compliance Risk benefits alternatives explained Documented By: Arben Webber MD 06/18/23 8802 Signed By: <Electronically signed by Arben Webber MD> 06/18/23 [address] [facility] Work Phone: [phone]) 944-556607-06-2022 History of Present illness Narrative* Nestor Jennings DMD, MD - 04/05/2022 8:58 AM EDT ORAL SURGERY PROCEDURE ROOM NOTE [facility] Surgical Product(s): Routine extraction teeth # 19, # 30 and # 32 and Surgical extraction teeth # 17 PMH: Reviewed, no change. Antibiotic prophylaxis indicated/taken: no Discussed risks, benefits, and alternatives of treatment. All of the patient s questions were answered, and informed consent was obtained: yes Pre-op Diagnosis: Chronic dental caries extending to pulp [[id number]] Caries PROCEDURE TIME OUT CHECK LIST 1. Radiograph is correctly matched to the patient,diagnostic quality, correctly oriented for laterality: Yes 2. Time out performed confirming correct surgical site and/or involved teeth verified by the patient and the surgeon: Yes Anesthesia: 2% Xylocaine with 1/100,000 epinephrine: 4 carpules and 0.5% Bupivicaine: 2 carpules Attending: Hugo Pearce DMD, MD Resident: Bradford Jennings DMD, MD Circulating Nurse: None Assistants: ANGELA Javier Procedure in Detail: bite block and throat screen placed for procedure and removed on compeltion. B/l IA and long buccal blocks performed with above listed anesthesia. Tooth #17 required release of adistobuccal hockey stick shaped incision with a 15 blade. Tooth #17, 19, 30, 32 were all then removed with simple elevator and forcep technique. The sockets were curretted and irrigated with normal saline. Soft tissue at #17 site was sutured with a single interrupted 3-0 chromic gut suture. Bite pressure on gauze applied for hemostasis. Patient tolerated procedure well. Complications: none Specimens: Intact teeth Estimated blood loss: Minimal (<5 ml) Disposition: Home Fernanda Jennings DMD, MD Associated attestation - Hugo Pearce DMD, MD - 04/05/2022 10:20 AM EDT Teaching Physician Note: I saw and evaluated the patient. I personally obtained the claire and critical portions of the historyand physical exam. I reviewed the resident's documentation and discussed the patient with the resident. I agree with the resident's medical decision making as documented in the resident's note. Hugo Pearce DMD, MD * Henna Mcgee - 04/05/2022 8:45 AM EDT Images from the original note were not included. documented in this [id number] Instructions* Patient Instructions* Nestor Jennings DMD, MD - 04/05/2022 8:58 AM EDT Dental extraction Instructions Biting on Gauze to Control Bleeding Bleeding may occur for some time after you extraction. In most cases this bleeding can be easily controlled by placing a piece of clean gauze DIRECTLY over the empty tooth socket. Then make sure thatyou bite firmly on this gauze for 30 to 60 minutes. Use the gauze we supplied to you in the bag. Wash your hands with soap and water before touching the gauze and placing it in your mouth. Place the used gauze from your mouth in a plastic bag and dispose the bag in a trash container. Make sure to wash your hands again when you are done touching the used gauze and before touching anything else. If a small amount of bleeding continues after 45 minutes then repeat these instructions. Sometimes biting a tea bag may be helpful in controlling minor bleeding. Very light bleeding for 2 days is not uncommon. If heavy bleeding is still persistent during normal clinic hours than call the Clinic where the extraction was done to speak with an oral surgeon. [facility] [phone]. HELPING THE HEALING PROCESS AND STOPPING THE BLEEDING FOR THE NEXT 24 HOURS (1 DAY) AFTER THE EXTRACTION: DO NOT RINSE YOUR MOUTH OR SPIT 2. DO NOT DRINK ANY HOT LIQUIDS SUCH SOUP, COFFEE, TEA, HOT CHOCOLATE AVOID HEAVY LIFTING, BENDING OR OTHER STENUOUS EXERCISES SLEEP WITH 2 PILLOWS OR IN A RECLINER CHAIR. KEEPING HEAD ELEVATED WILL REDUCE SWELLING. SUTURE WILL DISSOLVE IN 7-10 DAYS FOR THE NEXT 72 HOURS (3 DAYS) AFTER THE EXTRACTION: DO NOT SMOKE OR DRINK ALCOHOL DO NOT DRINK OR SUCK FROM A STRAW OR ANYTHING ELSEDO NOT DRINK. Stitches may have been placed to help healing. Your surgeon will advise you if you need to return to have them removed. TOOTH BRUSHING On the day of the extraction it is best to avoid brushing the teeth right next to the extraction site. On the next day you can start brushing ALL your teeth but in a gentle fashion. Remember to not rinse strongly because it may cause you to start bleeding from the extraction site again. SWELLING AND PAIN After the extraction you may feel some pain and experience some swelling. An ice pack of unopened bag of frozen peas of corn applied to the area should keep the swelling down. Put the ice pack on youface for 10 minutes and then leave it off for the next 20 minutes. You can repeat this patter as you feel is necessary for up to 24 hours after the extraction. To avoid injury, make sure that adults or children avoid biting or chewing on their lips of cheeks, which may be numb following an extraction. If your pain or swelling seems to be getting worse or you feel as though something is not right then call your dentist, as directed above. ANTIBIOTICS AND PAIN MEDICATION If antibiotics have been prescribed then you should take them as directed; this includes taking allthe antibiotic (or liquid) pills that were prescribed. If you don't finish them completely a serious infection could result. You may have little of no discomfort after the extraction. If you have minor pain then you may wantto take acetaminophen (Tylenol) or ibuprofen (Motrin). It is very important that before taking any medications that you read and follow the directions and warnings that come with these products so you know whether they are right for you and you situation. If you have any questions on whether these medications are right for you, first talk to your doctor or pharmacist before taking the medication. Your surgeon may have given you a written prescription for pain relief. It is important that if youdecide to take it you read and understand all the precautions, warnings and directions that come with the medication. If you have any questions on whether the medication is right for you, first talk to your doctor or pharmacist before taking the medication. The pain medication prescription that your dentist gave you may contain a narcotic (like codeine). If so, most narcotic pain medications may upset your stomach. If so, then it is best to take them with food. The pain medication prescription that you were given can also make you drowsy or make you act strangely. If so, you should limit or stop activities such as driving a motor vehicle, operate machinery or other activities that require your full attention. EATING AND DRINKING A soft or liquid diet may be best for you after a difficult extraction. For a simpler extraction just make sure you do your chewing with those teeth that are NOT near the extraction site. POSTOPERATIVE INSTRUCTION AFTER SEDATION / GENERAL ANESTHESIA If you had general anesthesia of IV sedation, do not drive or operate machinery for 24 hours. A responsible adult should be with you for the remainder of the day. When starting oral intake, be sure to consume CLEAR LIQUIDS first. Clear liquids consist of water, Sprite, joaquin louisa, Jell-O, and non-pulp containing juices such as cranberry and apple juice. Once tolerating clear-liquids, you may advance your diet. Be sure to follow the specific diet instructions from your doctor according to the type of surgery you have had. It is important that you take any narcotic containing pain medications with food. Patients should not participate in any strenuous activity. Standing and sitting up too quickly following surgery can also result in dizziness and exacerbate these problems. It is also important that patients be supervised for an appropriate amount of time following sedation in order to ensure that they remain safe in the post- operative period. Under NO circumstances should a patient drive the day of surgery or participate in any important decisions. NAUSEA & VOMITING Nausea is not uncommon after surgery. Sometimes pain medications may be the cause. In the event of nausea and/or vomiting following surgery, do not take anything by mouth for at least an hour including the prescribed medicine. You should then sip on Coke, tea, or joaquin louisa. You should sip slowly over a 15- minute period. When the nausea subsides, you can begin taking solid foods and the prescribed medicine. You may take the anti-nausea medication if prescribed. If the above is not helpful, contact your surgeon. Please if you have any questions or concerns please contact us: [facility] . Ask for the behavioral modification assistant application security architect (after hours). billing services manager Clinic Hours: Mon-Fri 8:30 am to 4:30 pm. documented in this [id number] Instructions* Patient Instructions* Nestor Jennings DMD, MD - 04/05/2022 8:58 AM EDT Dental extraction Instructions Biting on Gauze to Control Bleeding Bleeding may occur for some time after you extraction. In most cases this bleeding can be easily controlled by placing a piece of clean gauze DIRECTLY over the empty tooth socket. Then make sure thatyou bite firmly on this gauze for 30 to 60 minutes. Use the gauze we supplied to you in the bag. Wash your hands with soap and water before touching the gauze and placing it in your mouth. Place the used gauze from your mouth in a plastic bag and dispose the bag in a trash container. Make sure to wash your hands again when you are done touching the used gauze and before touching anything else. If a small amount of bleeding continues after 45 minutes then repeat these instructions. Sometimes biting a tea bag may be helpful in controlling minor bleeding. Very light bleeding for 2 days is not uncommon. If heavy bleeding is still persistent during normal clinic hours than call the Clinic where the extraction was done to speak with an oral surgeon. [facility] [phone]. HELPING THE HEALING PROCESS AND STOPPING THE BLEEDING FOR THE NEXT 24 HOURS (1 DAY) AFTER THE EXTRACTION: DO NOT RINSE YOUR MOUTH OR SPIT 2. DO NOT DRINK ANY HOT LIQUIDS SUCH SOUP, COFFEE, TEA, HOT CHOCOLATE AVOID HEAVY LIFTING, BENDING OR OTHER STENUOUS EXERCISES SLEEP WITH 2 PILLOWS OR IN A RECLINER CHAIR. KEEPING HEAD ELEVATED WILL REDUCE SWELLING. SUTURE WILL DISSOLVE IN 7-10 DAYS FOR THE NEXT 72 HOURS (3 DAYS) AFTER THE EXTRACTION: DO NOT SMOKE OR DRINK ALCOHOL DO NOT DRINK OR SUCK FROM A STRAW OR ANYTHING ELSEDO NOT DRINK. Stitches may have been placed to help healing. Your surgeon will advise you if you need to return to have them removed. TOOTH BRUSHING On the day of the extraction it is best to avoid brushing the teeth right next to the extraction site. On the next day you can start brushing ALL your teeth but in a gentle fashion. Remember to not rinse strongly because it may cause you to start bleeding from the extraction site again. SWELLING AND PAIN After the extraction you may feel some pain and experience some swelling. An ice pack of unopened bag of frozen peas of corn applied to the area should keep the swelling down. Put the ice pack on youface for 10 minutes and then leave it off for the next 20 minutes. You can repeat this patter as you feel is necessary for up to 24 hours after the extraction. To avoid injury, make sure that adults or children avoid biting or chewing on their lips of cheeks, which may be numb following an extraction. If your pain or swelling seems to be getting worse or you feel as though something is not right then call your dentist, as directed above. ANTIBIOTICS AND PAIN MEDICATION If antibiotics have been prescribed then you should take them as directed; this includes taking allthe antibiotic (or liquid) pills that were prescribed. If you don't finish them completely a serious infection could result. You may have little of no discomfort after the extraction. If you have minor pain then you may wantto take acetaminophen (Tylenol) or ibuprofen (Motrin). It is very important that before taking any medications that you read and follow the directions and warnings that come with these products so you know whether they are right for you and you situation. If you have any questions on whether these medications are right for you, first talk to your doctor or pharmacist before taking the medication. Your surgeon may have given you a written prescription for pain relief. It is important that if youdecide to take it you read and understand all the precautions, warnings and directions that come with the medication. If you have any questions on whether the medication is right for you, first talk to your doctor or pharmacist before taking the medication. The pain medication prescription that your dentist gave you may contain a narcotic (like codeine). If so, most narcotic pain medications may upset your stomach. If so, then it is best to take them with food. The pain medication prescription that you were given can also make you drowsy or make you act strangely. If so, you should limit or stop activities such as driving a motor vehicle, operate machinery or other activities that require your full attention. EATING AND DRINKING A soft or liquid diet may be best for you after a difficult extraction. For a simpler extraction just make sure you do your chewing with those teeth that are NOT near the extraction site. POSTOPERATIVE INSTRUCTION AFTER SEDATION / GENERAL ANESTHESIA If you had general anesthesia of IV sedation, do not drive or operate machinery for 24 hours. A responsible adult should be with you for the remainder of the day. When starting oral intake, be sure to consume CLEAR LIQUIDS first. Clear liquids consist of water, Sprite, joaquin louisa, Jell-O, and non-pulp containing juices such as cranberry and apple juice. Once tolerating clear-liquids, you may advance your diet. Be sure to follow the specific diet instructions from your doctor according to the type of surgery you have had. It is important that you take any narcotic containing pain medications with food. Patients should not participate in any strenuous activity. Standing and sitting up too quickly following surgery can also result in dizziness and exacerbate these problems. It is also important that patients be supervised for an appropriate amount of time following sedation in order to ensure that they remain safe in the post- operative period. Under NO circumstances should a patient drive the day of surgery or participate in any important decisions. NAUSEA & VOMITING Nausea is not uncommon after surgery. Sometimes pain medications may be the cause. In the event of nausea and/or vomiting following surgery, do not take anything by mouth for at least an hour including the prescribed medicine. You should then sip on Coke, tea, or joaquin louisa. You should sip slowly over a 15- minute period. When the nausea subsides, you can begin taking solid foods and the prescribed medicine. You may take the anti-nausea medication if prescribed. If the above is not helpful, contact your surgeon. Please if you have any questions or concerns please contact us: [facility] . Ask for the behavioral modification assistant application security architect (after hours). billing services manager Clinic Hours: Mon-Fri 8:30 am to 4:30 pm. documented in this [id number] History of Present illness Narrative* Henna Mcgee - 04/05/2022 8:45 AM EDT Images from the original note were not included. documented in this [id number] Instructions* Patient Instructions* Shay Schaeffer ESAU De Los Santos - 02/01/2022 3:57 PM EDT Dental extraction Instructions Biting on Gauze to Control Bleeding Bleeding may occur for some time after you extraction. In most cases this bleeding can be easily controlled by placing a piece of clean gauze DIRECTLY over the empty tooth socket. Then make sure thatyou bite firmly on this gauze for 30 to 60 minutes. Use the gauze we supplied to you in the bag. Wash your hands with soap and water before touching the gauze and placing it in your mouth. Place the used gauze from your mouth in a plastic bag and dispose the bag in a trash container. Make sure to wash your hands again when you are done touching the used gauze and before touching anything else. If a small amount of bleeding continues after 45 minutes then repeat these instructions. Sometimes biting a tea bag may be helpful in controlling minor bleeding. Very light bleeding for 2 days is not uncommon. If heavy bleeding is still persistent during normal clinic hours than call the Clinic where the extraction was done to speak with an oral surgeon. [facility] [phone]. HELPING THE HEALING PROCESS AND STOPPING THE BLEEDING FOR THE NEXT 24 HOURS (1 DAY) AFTER THE EXTRACTION: 1. DO NOT RINSE YOUR MOUTH OR SPIT 2. DO NOT DRINK ANY HOT LIQUIDS SUCH SOUP, COFFEE, TEA, HOT CHOCOLATE 2. AVOID HEAVY LIFTING, BENDING OR OTHER STENUOUS EXERCISES 3. SLEEP WITH 2 PILLOWS OR IN A RECLINER CHAIR. KEEPING HEAD ELEVATED WILL REDUCE SWELLING. 4. SUTURE WILL DISSOLVE IN 7-10 DAYS FOR THE NEXT 72 HOURS (3 DAYS) AFTER THE EXTRACTION: 1. DO NOT SMOKE OR DRINK ALCOHOL 2. DO NOT DRINK OR SUCK FROM A STRAW OR ANYTHING ELSEDO NOT DRINK. Stitches may have been placed to help healing. Your surgeon will advise you if you need to return to have them removed. TOOTH BRUSHING On the day of the extraction it is best to avoid brushing the teeth right next to the extraction site. On the next day you can start brushing ALL your teeth but in a gentle fashion. Remember to not rinse strongly because it may cause you to start bleeding from the extraction site again. SWELLING AND PAIN After the extraction you may feel some pain and experience some swelling. An ice pack of unopened bag of frozen peas of corn applied to the area should keep the swelling down. Put the ice pack on youface for 10 minutes and then leave it off for the next 20 minutes. You can repeat this patter as you feel is necessary for up to 24 hours after the extraction. To avoid injury, make sure that adults or children avoid biting or chewing on their lips of cheeks, which may be numb following an extraction. If your pain or swelling seems to be getting worse or you feel as though something is not right then call your dentist, as directed above. ANTIBIOTICS AND PAIN MEDICATION If antibiotics have been prescribed then you should take them as directed; this includes taking allthe antibiotic (or liquid) pills that were prescribed. If you don't finish them completely a serious infection could result. You may have little of no discomfort after the extraction. If you have minor pain then you may wantto take acetaminophen (Tylenol) or ibuprofen (Motrin). It is very important that before taking any medications that you read and follow the directions and warnings that come with these products so you know whether they are right for you and you situation. If you have any questions on whether these medications are right for you, first talk to your doctor or pharmacist before taking the medication. Your surgeon may have given you a written prescription for pain relief. It is important that if youdecide to take it you read and understand all the precautions, warnings and directions that come with the medication. If you have any questions on whether the medication is right for you, first talk to your doctor or pharmacist before taking the medication. The pain medication prescription that your dentist gave you may contain a narcotic (like codeine). If so, most narcotic pain medications may upset your stomach. If so, then it is best to take them with food. The pain medication prescription that you were given can also make you drowsy or make you act strangely. If so, you should limit or stop activities such as driving a motor vehicle, operate machinery or other activities that require your full attention. EATING AND DRINKING A soft or liquid diet may be best for you after a difficult extraction. For a simpler extraction just make sure you do your chewing with those teeth that are NOT near the extraction site. POSTOPERATIVE INSTRUCTION AFTER SEDATION / GENERAL ANESTHESIA If you had general anesthesia of IV sedation, do not drive or operate machinery for 24 hours. A responsible adult should be with you for the remainder of the day. When starting oral intake, be sure to consume CLEAR LIQUIDS first. Clear liquids consist of water, Sprite, joaquin louisa, Jell-O, and non-pulp containing juices such as cranberry and apple juice. Once tolerating clear-liquids, you may advance your diet. Be sure to follow the specific diet instructions from your doctor according to the type of surgery you have had. It is important that you take any narcotic containing pain medications with food. Patients should not participate in any strenuous activity. Standing and sitting up too quickly following surgery can also result in dizziness and exacerbate these problems. It is also important that patients be supervised for an appropriate amount of time following sedation in order to ensure that they remain safe in the post- operative period. Under NO circumstances should a patient drive the day of surgery or participate in any important decisions. NAUSEA & VOMITING Nausea is not uncommon after surgery. Sometimes pain medications may be the cause. In the event of nausea and/or vomiting following surgery, do not take anything by mouth for at least an hour including the prescribed medicine. You should then sip on Coke, tea, or joaquin louisa. You should sip slowly over a 15- minute period. When the nausea subsides, you can begin taking solid foods and the prescribed medicine. You may take the anti-nausea medication if prescribed. If the above is not helpful, contact your surgeon. Please if you have any questions or concerns please contact us: [facility] . Ask for the behavioral modification assistant application security architect (after hours). billing services manager Clinic Hours: Mon-Fri 8:30 am to 4:30 pm. documented in this [id number] History of Present illness Narrative* Magali Herron DDS - 02/01/2022 3:53 PM EDT [facility] [place]IT CHIEF COMPLAINT: I need to to have the rest of my bad teeth extracted. HISTORY OF PRESENT ILLNESS: 21 year old female presents with referral for extraction of teeth 1,2,16,17,19,30,32. Patient states that she was in a lot of pain and had teeth # 1,2,16 extracted with another provider. PAST MEDICAL HISTORY: 21 yrs old White female D2M Hypercholesterolemia Hypothyroidism GERD System History Cardiovascular Negative history Pulmonary Negative history Hematologic Negative history Renal Negative history Hepatic Negative history Endocrine Negative history Musculoskeletal Negative history Neurological Negative history Infectious Disease Negative history Psychiatric Negative history Reproductive Negative history MEDICATIONS: Latuda Statin Prazosin SSRI Levothyroxine Metformin Omeprazole ALLERGIES: Patient has no known allergies. SURGICAL HX: No past surgical history on file. SOCIAL HX: Tobacco: Never CLINICAL EXAMINATION Extraoral examination: No sign of infection, redness or tenderness to palpation. No facial asymmetry nor swelling No appreciable lymphadenopathy No popping, clicking or crepitus of TMJs bilaterally, No tenderness to palpation of temporalis and masseter Asymptomatic function Range of motion within normal limits No facial numbness Intraoral examination: Mucosa moist and pink Oropharynx clear No pathological soft lesions appreciated Occlusion stable with no step off Caries noted # 19,30,32. RADIOGRAPHIC INTERPRETATION: [employer] Film taken on 02/01/2022, and Retained in our clinic files Caries #17,19,30,32 DIAGNOSIS: Chronic dental caries extending to pulp [336340] TREATMENT: Exam and goyal PLAN: Extraction of teeth # 17,19,30,32 under local anesthesia in clinic. Magali Schaeffer DDS Associated attestation - Hugo Pearce DMD, MD - 02/08/2022 10:13 AM EDT Teaching Physician Note: I saw and evaluated the patient. I personally obtained the claire and critical portions of the historyand physical exam. I reviewed the resident's documentation and discussed the patient with the resident. I agree with the resident's medical decision making as documented in the resident's note. Hugo Pearce DMD, MD documented in this [id number] NotePatient Outreach ([facility]) CRIS MAGANA ([id number]) 2000 F Date Time Provider Department 02/02/21 REBA SORIA During your visit today, we recorded the following information about you: Reba Soria MA 02/02/2021 10:13 AM Signed POPULATION HEALTH NAVIGATION OUTREACH Action/FYI Provider Offboarding Spoke to patient - patient reports transferring care to [facility], under the care of Heath Ellis CNP Updated PCP field Contact made with patient or family member? YES Pt identified by name and : YES Outreach Outcome/Action Spoke to patient or caregiver: PCP confirmed / updated Reason for Outreach Attribution: Provider Off-boarding Payer: Payor[place] MEDICAID [place] / Plan[place] / Product Type: Medicaid / Care Gap Reviewed:: Annual Wellness visit Reminder: Reminder note to check Health Maintenance for items below Health Maintenance items due: DEPRESSION SCREENING Never done GC (GONORRHEA) SCREENING (18-24) Never done HEPATITIS C SCREENING Never done HIV SCREENING Never done CHLAMYDIA SCREENING (18-24) Never done PAP TESTING Never done DTAP,TDAP,TD(6 - Td or Tdap) due on 08/31/2019 Advanced Directives Completed: Have you ever planned for future healthcare decisions with a power of securities attorney, living will, or advance directives? N/A Referrals: N/A Message Sent to Practice: NO Navigation Signature: Reba Soria MA February 02, 2021 10:05 AM Allergies As of Date: 02/02/2021 Noted Allergy Reaction BEE STING 05/20/2013 10 - Anaphylaxis WASPS 12/12/2007 10 - Anaphylaxis Date Reviewed: 06/24/2015 Reviewed by: Na Bach LPN - Fully Assessed Reason for Visit: Population Health Navigation Outreach [3910] Cmt: Provider Offboarding Prescriptions as of 02/02/2021 Sig: DEXMETHYLPHENIDATE ER 40 MG C* Take 40 mg by mouth once yoan* DEXMETHYLPHENIDATE 10 MG TABL* Take 10 mg by mouth once yoan* TOPIRAMATE 50 MG TABLET Take 50 mg by mouth once yoan* MEDROXYPROGESTERONE 150 MG/ML* Inject 1 mL intramuscularly e* Problem List As Of Date 02/02/2021 Noted Resolved 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 Author Type: Catalogue Compiler Type: Progress Notes Filed: 02/02/2021 10:13 AM Note Text: POPULATION HEALTH NAVIGATION OUTREACH Action/I Provider Offboarding Spoke to patient - patient reports transferring care to [facility], under the care of Heath Ellis CNP Updated PCP field Contact made with patient or family member? YES Pt identified by name and : YES Outreach Outcome/Action Spoke to patient or caregiver: PCP confirmed / updated Reason for Outreach Attribution: Provider Off-boarding Payer: Pay[place] / Plan[place] / Product Type: Medicaid / Care Gap Reviewed:: Annual Wellness visit Reminder: Reminder note to check Health Maintenance for items below Health Maintenance items due: DEPRESSION SCREENING Never done GC (GONORRHEA) SCREENING (18-24) Never done HEPATITIS C SCREENING Never done HIV SCREENING Never done CHLAMYDIA SCREENING (18-24) Never done PAP TESTING Never done DTAP,TDAP,TD(6 - Td or Tdap) due on 08/31/2019 Advanced Directives Completed: Have you ever planned for future healthcare decisions with a power of securities attorney, living will, or advance directives? N/A Referrals: N/A Message Sent to Practice: NO Navigation Signature: Reba Soria MA February 02, 2021 10:[address] [facility] summary Author Arben Webber [facility] June 22, 2023 11:35am Note Date/Time June 22, 2023 11:34am [facility] [address] [place], [place] [id number] Discharge Summary Signed Patient: Cris Magana MR#: [id number] : 2000 Acct:[id number] Age/Sex: 23 / F Adm Date: 3 Loc: 1S Room: [address] [place] [address]: Arben Webber MD Copies to: MD Joi Richmond MD~ Providers Date of Discharge: 06/22/23 Discharging Provider: Arben Webber Primary Care Provider: Joi Prieto Discharge Diagnosis (1) Schizoaffective disorder: (2) Autism: Final Diagnosis Final Discharge Diagnosis: Schizoaffective disorder Summary Hospital Course Hospital course: According to admission note: Ms. Magana is a 23 year old female who presented due to concern for depression and suicidal ideation. Upon assessment, patient reported she was depressed when she was at her grandmother's house.? She states that she came back to the long-term and had suicidal thoughts and wanted to cut herself.? She reported that she has been keeping up with her medications but reported that recently she has been refusingbut does not say why.? She reported that she has been feeling depressed but denied any changes with her sleep or appetite.? She does report some feelings ofhopelessness and some suicidal thoughts.? She does admit to having some hallucinations. Past psych history: Denies, but history of some psychotic symptoms and past psychiatric hospitalizations.? Was diagnosed with schizoaffective disorder Past hospitalizations: Denies, but was hospitalized back in 2019 Past suicide attempts: There is documentation of prior suicide attempts Family psych history: Unknown Previous medications: Cannot recall.? Currently on Invega.? Chart review also revealed Latuda and Zoloft and prazosin Alcohol and drug use: Denied any significant issues Living: In long-term Employment: Unemployed Patient is continued on home medications. The dose of Zoloft was increased during hospitalization. She tolerated the medication without any problems and did not report any side effects. During her hospitalization she reported some suicidal thoughts but did not exhibit any behavior concerning for suicidality. She was very social with peers and seem to be in good spirits during her hospitalization. She did not exhibit any behavior concerning for homicidality during her hospital course. Her sleep and appetite were normal during hospitalization. On the day of discharge, she reported that she was feeling better. She denied any depression or suicidality. She denied any other issues with her current medications and was comfortable with discharge plan home and will help with outpatient services. Condition Condition at Discharge: Stable Status at Discharge Cognitive/behavioral status at discharge: Mental Status Exam: Appearance: grossly normal Mental Status: mental status grossly normal Mood: Euthymic mood Affect: Normal affect Speech and Movement: speech and movement normal and speech clear Attitude: cooperative Thought Process: normal Thought Content: Denied hallucinations, no homicidality and no suicidality Insight: Good Judgment: Good Functional status at discharge: independent ambulation Overall status at discharge: patient is back to baseline Time Spent with Patient Time spent providing/coordinating discharge services (# min): 30 Exam Physical Exam Vital Signs: Temp Pulse Resp BP Pulse Ox O2 Del Method 97.3 F L 95 H 18 124/80 96 Room Air 06/22/23 07:30 06/22/23 07:30 06/22/23 07:30 06/22/23 07:30 06/22/23 07:30 06/22/23 07:30 Discharge Plan Discharge Plan Patient Disposition: Home Activity: No Activity Restriction Diet: Regular Additional Instructions: Important Contact Information You can call [facility] Inpatient Behavioral Health at [phone] any time day or night if you have emergent questions concerning your inpatient stay and to obtain information for obtaining testing results.? Ifat any time you are feeling an increase in your psychiatric symptoms, call your physician or behavioral healthcare provider. If any time you have thoughts of harming yourself or others contact one of the following: Call (available 23/04) Crisis Text Line (available 23/04) text 4HOPE to [phone] [facility] Hope Line (available 8 a.m. Midnight) call [phone] ([phone]) Invega Sustenna 234mg IM given on 06/18/23 Instructions: Schizoaffective Disorder (DC), [facility] Behavioral Health DC Instructions Prescriptions: New buspirone 10 mg Tablet 10 mg PO BID 30 Days Qty: 60 0RF sertraline 50 mg Tablet 150 mg PO DAILY 30 Days Qty: 90 0RF Continued metformin 500 mg Tablet 500 mg PO BID.WITH.MEALS loperamide 2 mg Capsule 2 mg PO Q2H PRN (Reason: Diarrhea) Rx Instructions: 2 caps first loose stool then 1 cap each additional loose stool as needed via07mn/24hrs levothyroxine [Synthroid] 50 mcg Tablet 50 mcg PO DAILY docusate sodium [Colace] 100 mg Capsule 100 mg PO DAILY medroxyprogesterone [Depo-Provera] 150 mg/mL Suspension 150 mg IM [id number] Rx Instructions: due 08/10/23 prazosin 1 mg Capsule 2 mg PO QHS 30 Days Qty: 60 0RF omeprazole 20 mg Capsule,Delayed Release(Dr/Ec) 20 mg PO DAILY 30 Days Qty: 30 0RF paliperidone 3 mg Tablet Extended Release 24hr 3 mg PO QHS 30 Days Qty: 30 0RF atorvastatin 10 mg tablet 10 mg PO DAILY lurasidone 120 mg tablet 120 mg PO DAILY white petrolatum [Petroleum Jelly] Gel 1 applic TOPICAL BID Rx Instructions: to feet Discontinued sertraline 100 mg Tablet 100 mg PO DAILY 30 Days Qty: 30 0RF Follow Up: [facility] [Outside] Joi Prieto MD [Primary Care Provider] - (Please follow up with your primary care provider for any medical concerns. ) Reno Christianson MD [Referring] - (This office is closed on Sunday's and your appointment was unable to be made. Please call to make a discharge follow up appt as soon as possible. ) Documented By: Arben Webber MD 06/22/23 1132 Signed By: <Electronically signed by Arben Webber MD> 06/22/23 1133 [facility] Work Phone: Evaluation note* Diagnosis Chronic dental caries extending to pulp- Primary Dental caries extending into pulp Body mass index (BMI) 45.0-49.9, adult ([facility]) [facility] Diagnosis Chronic dental caries extending to pulp- Primary Dental caries extending into pulp [facility]* Diagnosis Chronic dental caries extending to pulp- Primary Dental caries extending into pulp [facility]* Diagnosis Screen for STD (sexually transmitted disease) Screening examination for venereal disease documented in this encounter [facility] Work Phone: evaluation note* Diagnosis Onset Date Resolution Status Autism acute Schizoaffective disorder acu te [facility] Work Phone: Evaluation noteNo InformationNortSt. [facility] Other History general Narrative - Reported* Type Description Date Medical History Major depression with psychotic features Medical History autism Medical History auspergers Medical History urinary tract obstruction Medical History PTSD Medical History ADHD Medical History Morbid obesity Medical History Mild DD Medical History Constipation Medical History Frequent UTI Medical History NIDDM Medical History Hypothyroidism Medical History Hyperlipidemia Hospitalization History SUICIDAL IDEATION, Multi ple stays [facility] Other Hospital Discharge instructions Additional Instructions Important Contact Information You can call [facility] at [phone] any time day or night if you have emergent questions concerning your inpatient stay and to obtain information for obtaining testing results. If at any time you are feeling an increase in your psychiatric symptoms, call your physician or behavioral healthcare provider. If any time you have thoughts of harming yourself or others contact one of the following: Call 8 (available 23/04) Crisis Text Line (available 23/04) text 4HOPE to [phone] [facility] Hope Line (available 8 a.m. Midnight) call [phone] ([phone]) Invega Sustenna 234mg IM given on 06/18/23, Invega Sustenna 156mg IM given on 06/21/23*[facility] Work Phone: Summary Purpose Family History No Family History Records Found Relationship Condition Age at Onset Recorded Date/T poli Not Specified Type 2 diabetes mellitus Unknown Advance Directives No Advanced Directives Records FoundDocuments on File Type Date Recorded Patient Head Esthetician Expl anation Advance Directives and Living Will Power of Waste Chopper Latest Code Status on File Code Status Date Activated Date Inactivated Comments Full Code 07/16/2017 3:56 AM 07/24/2017 1:13 PM Full Code 05/14/2016 9:13 AM 05/25/2016 3:53 PM Documents on File Type Date Recorded Patient Head Esthetician Expl anation ACP-Advance Directive ACP-Guardianship Document 10/07/2019 10:27 AM Legal Guardianship ACP-Power of Waste Chopper Documents on File Type Date Recorded Patient Head Esthetician Expl anation ACP-Advance Directive ACP-Power of Waste Chopper ACP-Guardianship Document 10/07/2019 10:27 AM Legal Guardianship Documents on File Type Date Recorded Patient Head Esthetician Expl anation ACP-Guardianship Document 10/07/2019 10:27 AM Legal Guardianship Latest Code Status on File Code Status Date Activated Date Inactivated Comments Full Code 07/16/2017 3:56 AM 07/24/2017 1:13 PM Code Status History Code Status Date Activated Date Inactivated Comments Full Code 05/14/2016 9:13 AM 05/25/2016 3:53 PM Advance Directive Response Recorded Date/ Time Advance Directives No August 2:51pm Chief Complaint and Reason for Visit Chief Complaint Bipolar Reason for Visit Autism Schizoaffective disorder Additional Source Comments INFORMATION SOURCE (unrecogn ized section and content) DATE CREATED AUTHOR 03/19/2018 [facility] DATE CREATED AUTHOR AUTHOR'S ORGANIZ ATION 03/22/2018 [facility] DATE CREATED AUTHOR AUTHOR'S ORGANIZ ATION 03/22/2018 [facility] DATE CREATED AUTHOR AUTHOR'S ORGANIZ ATION 03/26/2018 [facility] DATE CREATED AUTHOR AUTHOR'S ORGANIZ ATION 03/27/2018 [facility] DATE CREATED AUTHOR AUTHOR'S ORGANIZ ATION 07/12/2020 [facility] DATE CREATED AUTHOR AUTHOR'S ORGANIZ ATION 11/23/2021 [facility] DATE CREATED AUTHOR AUTHOR'S ORGANIZ ATION 04/11/2022 [facility] DATE CREATED AUTHOR AUTHOR'S ORGANIZ ATION 08/16/2023 [facility] DATE CREATED AUTHOR AUTHOR'S ORGANIZ ATION 09/13/2023 [facility] Care Teams (unrecognized sec tion and content) Quarry Supervisor Open Pit Relationship Specialty Start Date End Date Joi Prieto MD [address] [place] [id number] PCP - General Internal Medicine 03/16/21 Quarry Supervisor [employer] Pit Relationship Specialty Start Date End Date Hugo Pearce DMD, MD [address] [place] [address] Physician Oral & Maxillofacial Surgery 03/04/22 Quarry Supervisor Open Pit Relationship Specialty Start Date End Date Hugo Pearce DMD, MD [address] [place] [address] Physician Oral & Maxillofacial Surgery 03/04/22 Quarry Supervisor Open Pit Relationship Specialty Start Date End Date Heath Ellis APRN - TRIAL JUDGE [address] [phone] PCP - General Nurse Practitioner 01/03/22 Quarry Supervisor Open Pit Relationship Specialty Start Date End Date Heath Ellis APRN - TRIAL JUDGE [facility] [phone] PCP - General Nurse Practitioner 01/03/22 Quarry Supervisor Open Pit Relationship Specialty Start Date End Date Heath Ellis APRN - TRIAL JUDGE [address] [phone] PCP - General Nurse Practitioner 01/03/22 Quarry Supervisor Open Pit Relationship Specialty Start Date End Date Heath Ellis APRN - TRIAL JUDGE [facility] [phone] PCP - General Nurse Practitioner 01/03/22 Quarry Supervisor Open Pit Relationship Specialty Start Date End Date Heath Ellis APRN - TRIAL JUDGE [address] [phone] PCP - General Nurse Practitioner 01/03/22 Team Status: Active Member Role Status Dates Joi Prieto MD Primary Care Provider Acti ve Team Status: Inactive Member Role Status Dates Joi Prieto MD Primary Care Provider Cassie Webber MD Admit Provider, Attending Provider Active Reason for Visit (unrecogniz ed section and content) Reason Comments New patient, to establish relationship Specialty Diagnoses / Procedures Referred By Dirk t Referred To Contact Oral Surgery Diagnoses Dental caries EXT 1,2,16,17,19,30,32 UNDER SEDATION Genesis Quershi, DDS [address] [place] [address] Oral Surgery [address] [place] [address] Referral ID Status Reason Start Date Expiration Date Visits Requested Visits Authorized [id number] Authorized [facility] 09/07/2021 03/06/2022 3 3 FOR RECORDS PERTAINING TO PATIENTS WHO ARE OR HAVE BEEN ENROLLED IN A CHEMICAL DEPENDENCY/SUBSTANCEABUSE PROGRAM, SOME INFORMATION MAY BE OMITTED. This clinical summary was aggregated from multiple sources. Caution should be exercised in using it in the provision of clinical care. This summary normalizes information from multiple sources, and as a consequence, information in this document may materially change the coding, format and clinical context of patient data. In addition, data may be omitted in some cases. CLINICAL DECISIONS SHOULD BE BASED ON THE PRIMARY CLINICAL RECORDS. [facility] [employer] provides no warranty or guarantee of the accuracy or completeness of information in this document.
--- NOTE | 2023-10-02 19:13 | ECG_ITS ---
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
[2023-10-02 19:15] VITALS: PULSE 107
--- NOTE | 2023-10-02 19:15 | ED_ITS ---
HPI - Psych General Chief Complaint: Psychiatric Symptoms Stated Complaint: suicide Time Seen by Provider: 10/02/23 19:13 Source: Reports patient Mode of arrival: ambulance Limitations: Reports no limitations History of Present Illness HPI Narrative: This 23 year old female with a history of mental illness who lives in a jail is brought to the Emergency department by EMS from the jail. The patient states that she became suicidal his evening and broke a picture in her room. There was glass shattered all over the floor and she took a piece of glass and cut her left forearm. She has several superficial abrasions/lacerations on her left forearm. She denies that she is anxious about anything. She did breakup with her boyfriend last weekend. She also states that she has been drinking more than normal over the holidays. She states that she is still suicidal. She states she has not been taking her medications for the past day. She has been living in his jail since last May and things have been going well for her. Related Data Home Medications Medication Instructions Recorded Confirmed acetaminophen 325 mg capsule 650 mg PO Q4H PRN pain 07/11/23 10/02/23 atorvastatin 10 mg tablet 10 mg PO DAILY 07/11/23 10/02/23 buspirone 10 mg tablet 10 mg PO BID 07/11/23 10/02/23 docusate sodium 100 mg capsule 100 mg PO DAILY 07/11/23 10/02/23 (Col-Rite) levothyroxine 50 mcg tablet 50 mcg PO DAILY 07/11/23 10/02/23 loperamide 2 mg capsule 4 mg PO Q6H PRN loose stool 07/11/23 09/13/23 (Anti-Diarrheal (loperamide)) lurasidone 120 mg tablet 120 mg PO QDAY 07/11/23 10/02/23 medroxyprogesterone 150 mg/mL 150 mg IM .every 90 days 07/11/23 10/02/23 intramuscular suspension metformin 500 mg tablet 500 mg PO BID 07/11/23 10/02/23 omeprazole 20 mg capsule,delayed 20 mg PO DAILY 07/11/23 10/02/23 release paliperidone 3 mg tablet,extended 3 mg PO Q24H 07/11/23 10/02/23 release 24 hr paliperidone palmitate 156 mg/mL 156 mg IM Q28D 07/11/23 09/13/23 intramuscular syringe (Invega Sustenna) prazosin 2 mg capsule 2 mg PO .qhs 07/11/23 10/02/23 sertraline 100 mg tablet 200 mg PO Q24H 07/11/23 10/02/23 victoza subcut DAILY 10/02/23 Allergies Allergy/AdvReac Type Severity Reaction Status Date / Time No Known Drug Allergies Allergy Verified 10/02/23 19:22 Review of Systems ROS Status of ROS 10 or more systems reviewed and unremark able except as noted in history and below PFSH PFS Social History Smoking status: Never smoker Exam Narrative Exam Narrative: Nurses note and vital signs reviewed and patient is not hypoxic.She is tachycardic with a pulse of 110 and blood pressures elevated at 162/88 General: Obese, female resting currently on a stretcher, tearful at times, no respiratory distress Skin: Warm, dry, no pallor noted. There is no rash noted. Approximately 6 very superficial self-inflicted abrasions/lacerations to the right distal forearm, no bleeding noted Head: Normocephalic, atraumatic Eye: Normal conjunctiva, no drainage, EOMI. PERRL Ears, Nose, Mouth, and Throat: oral mucosa is moist. Cardiovascular: Regular Rate and Rhythm, S1 and S2, tachycardic in triage with a pulse of 110, no murmurs rubs or gallops appreciated Respiratory: Patient is in no distress, no accessory muscle use, lungs are clear to auscultation, no wheezing, rales or rhonchi Back: non-tender, no CVA tenderness bilaterally to percussion. GI: Normal bowel sounds, no tenderness to palpation, no masses appreciated. No rebound, guarding, or rigidity noted. Musculoskeletal: The patient has no evidence of calf tenderness, no pitting edema, symmetrical pulses noted bilaterally Neurological: A&O x4, normal speech, No focal deficits. Psychiatric: Cooperative, Admits to ongoing suicidal ideation Constitutional Vital Signs, click to edit/add: Last Vital Signs Temp 98.1 F 10/02/23 18:54 Pulse 110 H 10/02/23 18:54 Resp 20 10/02/23 18:54 BP 162/88 H 10/02/23 18:54 Pulse Ox 95 01/02/24 18:54 O2 Del Method Room Air 10/02/23 18:54 Course Vital Signs Vital signs: Vital Signs Temperature 98.1 F 10/02/23 18:54 Pulse Rate 110 H 10/02/23 18:54 Respiratory Rate 20 10/02/23 18:54 Blood Pressure 162/88 H 10/02/23 18:54 Pulse Oximetry 95 10/02/23 18:54 Oxygen Delivery Method Room Air 10/02/23 18:54 Temperature 98.1 F 10/02/23 18:54 Pulse Rate 110 H 10/02/23 18:54 Respiratory Rate 20 10/02/23 18:54 Blood Pressure 162/88 H 10/02/23 18:54 Pulse Oximetry 95 10/02/23 18:54 Oxygen Delivery Method Room Air 10/02/23 18:54 MDM - Psych MDM Narrative Medical decision making narrative: This 33-year-old female history bipolar disorder who lives in a jail and was brought to the emergency department after she broke a picture in her room and cut her right arm in a suicide attempt. She admits to medication noncompliance and ongoing suicidality. She states that she has drinking more alcohol than usual over they recent holiday.. Emergency Department she is calm, cooperative, smiling. There was no notable events at the jail that prompted her anxiety or suicidal ideation. EKG done upon arrival is a sinus tachycardia at 108 beats for minute. Medical clearance labs including alcohol, urine tox, CBC with differential and comprehensive metabolic profile were ordered and are normal. She was evaluated by P with recommendation for hospitalization and pink slipped. She has been accepted for transfer to [address] Caro Lab Data Labs: Lab Results 10/02/23 10/02/23 Range/Units 19:30 19:44 WBC 9.5 (4.0-11.0) 10^3/uL RBC 4.98 (4.20-5.40) 10^6/uL Hgb 13.8 (12.0-16.0) g/dL Hct 42.1 (36.0-48.0) % MCV 84.5 (81.0-99.0) fL MCH 27.7 (26.7-34.0) pg MCHC 32.8 (29.9-35.2) g/dL RDW 12.8 (11.0-15.0) % Plt Count 237 (150-450) 10^3/uL MPV 9.8 (9.5-13.5) fL Neut % (Auto) 61.7 (43.0-75.0) % Lymph % (Auto) 26.2 (20.5-60.0) % [place] % (Auto) 8.1 (1.7-12.0) % Eos % (Auto) 3.2 (0.9-7.0) % Baso % (Auto) 0.6 (0.2-2.0) % Neut # (Auto) 5.8 (1.4-6.5) 10^3/uL Lymph # (Auto) 2.5 (1.2-3.8) 10^3/uL [place] # (Auto) 0.8 (0.3-0.8) 10^3/uL Eos # (Auto) 0.3 (0.0-0.7) 10^3/uL Baso # (Auto) 0.1 (0.0-0.1) 10^3/uL Abs Immat Gran (auto) 0.02 (0.00-0.03) 10^3/uL Imm/Tot Granulo (auto) 0.2 (0.0-0.5) % Sodium 139 (136-145) mmol/L Potassium 3.4 L (3.5-5.1) mmol/L Chloride 103 (98-107) mmol/L Carbon Dioxide 24.5 (21.0-32.0) mmol/L Anion Gap 14.9 BUN 19.0 H (7.0-18.0) mg/dL Creatinine 1.10 H (0.55-1.02) mg/dL Est GFR ( Amer) >60 (>=60) Est GFR (Non-Af Amer) >60 (>=60) BUN/Creatinine Ratio 17.3 Glucose 114 H (74-106) mg/dL Calcium 8.7 (8.5-10.1) mg/dL Total Bilirubin 0.2 (0.2-1.0) mg/dL AST 15 (15-37) U/L ALT 41 (14-59) U/L Alkaline Phosphatase 70 (46-116) U/L Total Protein 7.5 (6.4-8.2) g/dL Albumin 3.3 L (3.4-5.0) g/dL Globulin 4.2 g/dL Albumin/Globulin Ratio 0.8 Urine HCG, Qual Negative (NEGATIVE) Urine Opiates Screen Negative (NEGATIVE) Ur Buprenorphine Scrn Negative (NEGATIVE) Ur Oxycodone Screen Negative (NEGATIVE) Urine Methadone Screen Negative (NEGATIVE) Ur Barbiturates Screen Negative (NEGATIVE) U Tricyclic Antidepress Negative (NEGATIVE) Ur Phencyclidine Scrn Negative (NEGATIVE) Ur Amphetamines Screen Negative (NEGATIVE) U Methamphetamines Scrn Negative (NEGATIVE) U Benzodiazepines Scrn Negative (NEGATIVE) Urine Cocaine Screen Negative (NEGATIVE) U Cannabinoids Screen Negative (NEGATIVE) Ethanol Quant <3 mg/dL ECG Data Attestation: I personally reviewed and interpreted this ECG as follows: (Sinus tachycardia at 108 beats for minute, normal axis, normal intervals, no acute ST segment elevation or T-wave inversion) Discharge Plan Discharge Chief Complaint: Psychiatric Symptoms Clinical Impression: Suicidal ideation, Bipolar disorder Patient Disposition: [facility] Time of Disposition Decision: 22:01 Discharge Location: [facility] Condition: Good Prescriptions / Home Meds: No Action atorvastatin 10 mg tablet 10 mg PO DAILY docusate sodium [Col-Rite] 100 mg capsule 100 mg PO DAILY levothyroxine 50 mcg tablet 50 mcg PO DAILY lurasidone 120 mg tablet 120 mg PO QDAY medroxyprogesterone 150 mg/mL suspension 150 mg IM .every 90 days metformin 500 mg tablet 500 mg PO BID loperamide [Anti-Diarrheal (loperamide)] 2 mg capsule 4 mg PO Q6H PRN (Reason: loose stool) acetaminophen 325 mg capsule 650 mg PO Q4H PRN (Reason: pain) omeprazole 20 mg capsule,delayed release(DR/EC) 20 mg PO DAILY paliperidone 3 mg tablet extended release 24hr 3 mg PO Q24H prazosin 2 mg capsule 2 mg PO .qhs sertraline 100 mg tablet 200 mg PO Q24H buspirone 10 mg tablet 10 mg PO BID Invega Sustenna 156 mg/mL syringe 156 mg IM Q28D Patient Comments: due 07/19 victoza 1.8 mg auto-injector subcut DAILY Referrals: Physician,Non-Staff, MD [Primary Care Provider] - 1 week
[2023-10-02 19:55] LABS: Basophils Absolute Auto 0.1 10^3/uL (0.0-0.1); Basophils Percent Auto 0.6 % (0.2-2.0); Eosinophils Absolute Auto 0.3 10^3/uL (0.0-0.7); Eosinophils Percent Auto 3.2 % (0.9-7.0); Hematocrit 42.1 % (36.0-48.0); Hemoglobin 13.8 g/dL (12.0-16.0); Immature Granulocytes Abs Auto 0.02 10^3/uL (0.00-0.03); Immature Granulocytes Pct Auto 0.2 % (0.0-0.5); Lymphocytes Absolute Auto 2.5 10^3/uL (1.2-3.8); Lymphocytes Percent Auto 26.2 % (20.5-60.0); Mean Corpuscular HGB Conc 32.8 g/dL (29.9-35.2); Mean Corpuscular Hemoglobin 27.7 pg (26.7-34.0); Mean Corpuscular Volume 84.5 fL (81.0-99.0); Mean Platelet Volume 9.8 fL (9.5-13.5); Monocytes Absolute Auto 0.8 10^3/uL (0.3-0.8); Monocytes Percent Auto 8.1 % (1.7-12.0); Neutrophils Absolute Auto 5.8 10^3/uL (1.4-6.5); Neutrophils Percent Auto 61.7 % (43.0-75.0); Platelet Count 237 10^3/uL (150-450); Red Blood Count 4.98 10^6/uL (4.20-5.40); Red Cell Distribution Width 12.8 % (11.0-15.0); White Blood Count 9.5 10^3/uL (4.0-11.0)
[2023-10-02 19:59] LABS: HCG Qualitative Urine* NEGATIVE (NEGATIVE)
[2023-10-02 20:07] LABS: Amphetamine Screen Urine NEGATIVE (NEGATIVE); Barbiturates Screen Urine NEGATIVE (NEGATIVE); Benzodiazepines Screen Urine NEGATIVE (NEGATIVE); Buprenorphine Screen Urine NEGATIVE (NEGATIVE); Cannabinoid Screen Urine NEGATIVE (NEGATIVE); Cocaine Screen Urine NEGATIVE (NEGATIVE); Methadone Screen Urine NEGATIVE (NEGATIVE); Methamphetamines Screen Urine NEGATIVE (NEGATIVE); Opiate Screen Urine NEGATIVE (NEGATIVE); Oxycodone Screen Urine NEGATIVE (NEGATIVE); Phencyclidine Screen Urine NEGATIVE (NEGATIVE); Tricyclic Antidepressant Urine NEGATIVE (NEGATIVE)
[2023-10-02 20:19] LABS: Anion Gap 14.9; Carbon Dioxide 24.5 mmol/L (21.0-32.0); Chloride 103 mmol/L (98-107); Estimated GFR (African America >60 (>=60); Ethanol <3 mg/dL; Glucose 114 mg/dL (74-106); Potassium 3.4 mmol/L (3.5-5.1); Sodium 139 mmol/L (136-145)
[2023-10-02 20:20] LABS: Alanine Aminotransferase 41 U/L (14-59); Albumin Globulin Ratio 0.8; Albumin Level 3.3 g/dL (3.4-5.0); Alkaline Phosphatase 70 U/L (46-116); Aspartate Amino Transferase 15 U/L (15-37); BUN Creatinine Ratio 17.3; Bilirubin Total 0.2 mg/dL (0.2-1.0); Calcium 8.7 mg/dL (8.5-10.1); Estimated GFR (Non-African Ame >60 (>=60); Globulin 4.2 g/dL; Total Protein 7.5 g/dL (6.4-8.2)
[2023-10-02 23:03] VITALS: BP 116/98; PULSE 103; RESP 16
== END 2023-10-02 23:31 ==
PROVIDERS: Emergency Provider Emergency Medicine
DX: F31.9 Bipolar disorder, unspecified (principal); S50.811A Abrasion of right forearm, initial encounter; S51.811A Laceration without foreign body of right forearm, initial encounter; X78.0XXA Intentional self-harm by sharp glass, initial encounter; E66.9 Obesity, unspecified; Z79.899 Other long term (current) drug therapy; Z79.84 Long term (current) use of oral hypoglycemic drugs; Z79.890 Hormone replacement therapy; Z68.43 Body mass index [BMI] 50.0-59.9, adult
CPT/HCPCS: 36415; 80053; 80307; 80320; 84703; 85025; 93005; 99285

== ENCOUNTER 2023-11-14 19:22 | Emergency (ER) | payer MEDICAID, SELFPAY ==
[2023-11-14 19:24] VITALS: BP 120/66; PULSE 104; RESP 18; O2SAT 97; BMI 57.1
--- NOTE | 2023-11-14 19:27 | ECG_ITS ---
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
--- NOTE | 2023-11-14 19:28 | ED.PSYCH1 ---
Documented by User: [email or web address] Pérez 11/14/23 21:42 HPI - Psych General Chief Complaint: Psychiatric Symptoms Stated Complaint: Suicidal Time Seen by Provider: 11/14/23 19:27 Source: Reports patient Mode of arrival: ambulance History of Present Illness HPI Narrative: Patient is a 23-year-old female with a history of intellectual disability, autism, psychosis who presents to the ER for evaluation of suicidal ideation and homicidal ideation. [facility] counseling services were contacted prior to the patient's arrival and it was recommended she come to the ER for medical clearance and evaluation. Patient was hospitalized at [facility] 1 month ago in inpatient Psychiatry services, she states today she is suicidal with a plan to cut herself, she reports cutting herself earlier today although she is not noted to have any abrasions that break the skin on her left forearm. She denies any extra drug ingestion. She stopped taking her metformin yesterday. Today she reports pain in the upper abdomen and nausea although she has not had any fevers. She states she has had vomiting but this was not reported by her long term. She has not had any urinary symptoms or other flulike illness. Related Data Home Medications Medication Instructions Recorded Confirmed acetaminophen 325 mg capsule 650 mg PO Q4H PRN pain 07/11/23 10/02/23 atorvastatin 10 mg tablet 10 mg PO DAILY 07/11/23 11/14/23 buspirone 10 mg tablet 10 mg PO BID 07/11/23 11/14/23 docusate sodium 100 mg capsule 100 mg PO DAILY 07/11/23 11/14/23 (Col-Rite) levothyroxine 50 mcg tablet 50 mcg PO DAILY 07/11/23 11/14/23 loperamide 2 mg capsule 4 mg PO Q6H PRN loose stool 07/11/23 09/13/23 (Anti-Diarrheal (loperamide)) lurasidone 120 mg tablet 120 mg PO QDAY 07/11/23 11/14/23 medroxyprogesterone 150 mg/mL 150 mg IM .every 90 days 07/11/23 11/14/23 intramuscular suspension metformin 500 mg tablet 500 mg PO BID 07/11/23 11/14/23 omeprazole 20 mg capsule,delayed 20 mg PO DAILY 07/11/23 11/14/23 release paliperidone 3 mg tablet,extended 3 mg PO Q24H 07/11/23 11/14/23 release 24 hr paliperidone palmitate 156 mg/mL 156 mg IM Q28D 07/11/23 09/13/23 intramuscular syringe (Invega Sustenna) prazosin 2 mg capsule 2 mg PO .qhs 07/11/23 11/14/23 sertraline 100 mg tablet 200 mg PO Q24H 07/11/23 11/14/23 victoza subcut DAILY 10/02/23 Allergies Allergy/AdvReac Type Severity Reaction Status Date / Time No Known Drug Allergies Allergy Verified 11/14/23 19:27 Review of Systems ROS Constitutional Denies: fever or chills Ears, nose, mouth, and throat Denies: throat pain or nasal congestion Cardiovascular Denies: chest pain Respiratory Denies: shortness of breath Gastrointestinal Reports: abdominal pain, nausea and vomiting; Denies: diarrhea Genitourinary Denies: painful urination Musculoskeletal Denies: back pain or neck pain Integumentary/Breast Denies: rash Neurological Denies: headache Endocrine Denies: excessive urination [facility] Social History Smoking status: Never smoker Exam Narrative Exam Narrative: Gen.: Awake, alert, in no distress Head: Normocephalic, atraumatic ENT: Moist mucous membranes Respiratory: No respiratory distress, lungs clear bilaterally Cardio: Regular rate and rhythm Gastrointestinal: Abdomen is soft, Obese, nontender to palpation Extremities: Moves extremities equally, no injuries noted Psych: Normal mood and affect Neuro: No focal neuro deficit Skin: Warm, dry, intact Constitutional Vital Signs, click to edit/add: Last Vital Signs Pulse 84 11/14/23 21:46 Resp 16 11/14/23 21:46 BP 141/84 11/14/23 21:46 Pulse Ox 98 11/14/23 21:46 O2 Del Method Room Air 11/14/23 19:24 Course Vital Signs Vital signs: Vital Signs Pulse Rate 104 H 11/14/23 19:24 Respiratory Rate 18 11/14/23 19:24 Blood Pressure 120/66 11/14/23 19:24 Pulse Oximetry 97 11/14/23 19:24 Oxygen Delivery Method Room Air 11/14/23 19:24 Pulse Rate 84 11/14/23 21:46 Respiratory Rate 16 11/14/23 21:46 Blood Pressure 141/84 11/14/23 21:46 Pulse Oximetry 98 11/14/23 21:46 Oxygen Delivery Method Room Air 11/14/23 19:24 MDM - Psych MDM Narrative Medical decision making narrative: 2137: Patient treated with IV Zofran for complaint of nausea although she had no episodes of emesis in the ER, she was smiling, waving at staff members and seemed very happy to be in the emergency department. She had no persistent complaints of abdominal pain and has no focal tenderness on exam. EKG, lab studies, urine specimen were obtained. Patient is medically clear for Psychiatric evaluation. She was evaluated by counseling services over the phone and we are awaiting a disposition from [facility]. Case is turned over to attending physician at this time. Medical Records Attestation: I reviewed the patient's medical records. Lab Data Attestation: I reviewed the patient's lab results. Labs: Lab Results 11/14/23 11/14/23 11/14/23 Range/Units 19:33 19:41 20:14 WBC 11.3 H (4.0-11.0) 10^3/uL RBC 5.05 (4.20-5.40) 10^6/uL Hgb 13.9 (12.0-16.0) g/dL Hct 42.2 (36.0-48.0) % MCV 83.6 (81.0-99.0) fL MCH 27.5 (26.7-34.0) pg MCHC 32.9 (29.9-35.2) g/dL RDW 13.3 (11.0-15.0) % Plt Count 260 (150-450) 10^3/uL MPV 10.2 (9.5-13.5) fL Neut % (Auto) 54.1 (43.0-75.0) % Lymph % (Auto) 37.6 (20.5-60.0) % [place] % (Auto) 5.7 (1.7-12.0) % Eos % (Auto) 1.9 (0.9-7.0) % Baso % (Auto) 0.4 (0.2-2.0) % Neut # (Auto) 6.1 (1.4-6.5) 10^3/uL Lymph # (Auto) 4.3 H (1.2-3.8) 10^3/uL [place] # (Auto) 0.6 (0.3-0.8) 10^3/uL Eos # (Auto) 0.2 (0.0-0.7) 10^3/uL Baso # (Auto) 0.1 (0.0-0.1) 10^3/uL Abs Immat Gran (auto) 0.03 (0.00-0.03) 10^3/uL Imm/Tot Granulo (auto) 0.3 (0.0-0.5) % Sodium 143 (136-145) mmol/L Potassium 3.7 (3.5-5.1) mmol/L Chloride 107 (98-107) mmol/L Carbon Dioxide 27.0 (21.0-32.0) mmol/L Anion Gap 12.7 BUN 14.0 (7.0-18.0) mg/dL Creatinine 0.94 (0.55-1.02) mg/dL Est GFR ( Amer) >60 (>=60) Est GFR (Non-Af Amer) >60 (>=60) BUN/Creatinine Ratio 14.9 Glucose 120 H (74-106) mg/dL Calcium 8.7 (8.5-10.1) mg/dL Total Bilirubin 0.2 (0.2-1.0) mg/dL AST 16 (15-37) U/L ALT 35 (14-59) U/L Alkaline Phosphatase 76 (46-116) U/L Total Protein 7.7 (6.4-8.2) g/dL Albumin 3.5 (3.4-5.0) g/dL Globulin 4.2 g/dL Albumin/Globulin Ratio 0.8 Lipase 56.0 (16.0-77.0) U/L Serum HCG, Qual Negative (NEGATIVE) Urine Color Yellow (YELLOW) Urine Clarity Clear (CLEAR) Urine pH 6.5 (5.0-9.0) Ur Specific [place] >=1.030 A (1.005-1.025) Urine Protein Negative (NEG/TRACE) mg/dL Urine Glucose (UA) Negative (NEGATIVE) mg/dL Urine Ketones Negative (NEGATIVE) mg/dL Urine Occult Blood Negative (NEGATIVE) Urine Nitrite Negative (NEGATIVE) Urine Bilirubin Negative (NEGATIVE) Urine Urobilinogen 0.2 (0.2-1.0) EU/dL Ur Leukocyte Esterase Negative (NEGATIVE) Salicylates <2.8 (<=19.9) mg/dL Urine Opiates Screen Negative (NEGATIVE) Ur Buprenorphine Scrn Negative (NEGATIVE) Ur Oxycodone Screen Negative (NEGATIVE) Urine Methadone Screen Negative (NEGATIVE) Acetaminophen <2.0 L (10.0-30.0) ug/mL Ur Barbiturates Screen Negative (NEGATIVE) U Tricyclic Antidepress Negative (NEGATIVE) Ur Phencyclidine Scrn Negative (NEGATIVE) Ur Amphetamines Screen Negative (NEGATIVE) U Methamphetamines Scrn Negative (NEGATIVE) U Benzodiazepines Scrn Negative (NEGATIVE) Urine Cocaine Screen Negative (NEGATIVE) U Cannabinoids Screen Negative (NEGATIVE) Ethanol Quant <3 mg/dL SARS-CoV-2 Ag (CV2AG) Negative (NEGATIVE) ECG Data Attestation: I personally reviewed and interpreted this ECG as follows: (Sinus rhythm at a rate of 91, no acute ST elevation or ectopy. EKG reviewed by attending physician) Discharge Plan Discharge Chief Complaint: Psychiatric Symptoms Clinical Impression: Suicidal ideation, Depression Patient Disposition: Home, Self-Care Time of Disposition Decision: 22:38 Condition: Good Prescriptions / Home Meds: No Action atorvastatin 10 mg tablet 10 mg PO DAILY docusate sodium [Col-Rite] 100 mg capsule 100 mg PO DAILY levothyroxine 50 mcg tablet 50 mcg PO DAILY lurasidone 120 mg tablet 120 mg PO QDAY medroxyprogesterone 150 mg/mL suspension 150 mg IM .every 90 days metformin 500 mg tablet 500 mg PO BID loperamide [Anti-Diarrheal (loperamide)] 2 mg capsule 4 mg PO Q6H PRN (Reason: loose stool) acetaminophen 325 mg capsule 650 mg PO Q4H PRN (Reason: pain) omeprazole 20 mg capsule,delayed release(DR/EC) 20 mg PO DAILY paliperidone 3 mg tablet extended release 24hr 3 mg PO Q24H prazosin 2 mg capsule 2 mg PO .qhs sertraline 100 mg tablet 200 mg PO Q24H buspirone 10 mg tablet 10 mg PO BID Invega Sustenna 156 mg/mL syringe 156 mg IM Q28D Patient Comments: due 07/19 victoza 1.8 mg auto-injector subcut DAILY Instructions: Depression (ED), Suicide Prevention (ED) Stand Alone Forms: Portal Instructions Referrals: Physician,Non-Staff, [Primary Care Provider] - 1 week Documented by User: Dinorah Orozco MD 11/14/23 22:39 HPI - Psych General Chief Complaint: Psychiatric Symptoms Stated Complaint: Suicidal Time Seen by Provider: 11/14/23 19:27 Related Data Home Medications Medication Instructions Recorded Confirmed acetaminophen 325 mg capsule 650 mg PO Q4H PRN pain 07/11/23 10/02/23 atorvastatin 10 mg tablet 10 mg PO DAILY 07/11/23 11/14/23 buspirone 10 mg tablet 10 mg PO BID 07/11/23 11/14/23 docusate sodium 100 mg capsule 100 mg PO DAILY 07/11/23 11/14/23 (Col-Rite) levothyroxine 50 mcg tablet 50 mcg PO DAILY 07/11/23 11/14/23 loperamide 2 mg capsule 4 mg PO Q6H PRN loose stool 07/11/23 09/13/23 (Anti-Diarrheal (loperamide)) lurasidone 120 mg tablet 120 mg PO QDAY 07/11/23 11/14/23 medroxyprogesterone 150 mg/mL 150 mg IM .every 90 days 07/11/23 11/14/23 intramuscular suspension metformin 500 mg tablet 500 mg PO BID 07/11/23 11/14/23 omeprazole 20 mg capsule,delayed 20 mg PO DAILY 07/11/23 11/14/23 release paliperidone 3 mg tablet,extended 3 mg PO Q24H 07/11/23 11/14/23 release 24 hr paliperidone palmitate 156 mg/mL 156 mg IM Q28D 07/11/23 09/13/23 intramuscular syringe (Invega Sustenna) prazosin 2 mg capsule 2 mg PO .qhs 07/11/23 11/14/23 sertraline 100 mg tablet 200 mg PO Q24H 07/11/23 11/14/23 victoza subcut DAILY 10/02/23 Allergies Allergy/AdvReac Type Severity Reaction Status Date / Time No Known Drug Allergies Allergy Verified 11/14/23 19:27 PFSH PFS Social History Smoking status: Never smoker Exam Constitutional Vital Signs, click to edit/add: Last Vital Signs Pulse 84 11/14/23 21:46 Resp 16 11/14/23 21:46 BP 141/84 11/14/23 21:46 Pulse Ox 98 11/14/23 21:46 O2 Del Method Room Air 11/14/23 19:24 Course Vital Signs Vital signs: Vital Signs Pulse Rate 104 H 11/14/23 19:24 Respiratory Rate 18 11/14/23 19:24 Blood Pressure 120/66 11/14/23 19:24 Pulse Oximetry 97 11/14/23 19:24 Oxygen Delivery Method Room Air 11/14/23 19:24 Pulse Rate 84 11/14/23 21:46 Respiratory Rate 16 11/14/23 21:46 Blood Pressure 141/84 11/14/23 21:46 Pulse Oximetry 98 11/14/23 21:46 Oxygen Delivery Method Room Air 11/14/23 19:24 MDM - Psych MDM Narrative Medical decision making narrative: 2137: Patient treated with IV Zofran for complaint of nausea although she had no episodes of emesis in the ER, she was smiling, waving at staff members and seemed very happy to be in the emergency department. She had no persistent complaints of abdominal pain and has no focal tenderness on exam. EKG, lab studies, urine specimen were obtained. Patient is medically clear for Psychiatric evaluation. She was evaluated by counseling services over the phone and we are awaiting a disposition from [facility]. Case is turned over to attending physician at this time. That she was seen and evaluated in conjunction with the physician water quality assistant. Please refer to her full H and P. This patient is well-known to this facility. She presents for evaluation of suicidal/homicidal threats. An emergency department she is happy and engaging. She was medically cleared and evaluated by [facility] with a safety plan in place. She will be returned to her current long term and will be followed up as an outpatient. She is in agreement with this plan at this time. Lab Data Labs: Lab Results 02/11/14/23 11/14/23 Range/Units 19:33 19:41 20:14 WBC 11.3 H (4.0-11.0) 10^3/uL RBC 5.05 (4.20-5.40) 10^6/uL Hgb 13.9 (12.0-16.0) g/dL Hct 42.2 (36.0-48.0) % MCV 83.6 (81.0-99.0) fL MCH 27.5 (26.7-34.0) pg MCHC 32.9 (29.9-35.2) g/dL RDW 13.3 (11.0-15.0) % Plt Count 260 (150-450) 10^3/uL MPV 10.2 (9.5-13.5) fL Neut % (Auto) 54.1 (43.0-75.0) % Lymph % (Auto) 37.6 (20.5-60.0) % [place] % (Auto) 5.7 (1.7-12.0) % Eos % (Auto) 1.9 (0.9-7.0) % Baso % (Auto) 0.4 (0.2-2.0) % Neut # (Auto) 6.1 (1.4-6.5) 10^3/uL Lymph # (Auto) 4.3 H (1.2-3.8) 10^3/uL [place] # (Auto) 0.6 (0.3-0.8) 10^3/uL Eos # (Auto) 0.2 (0.0-0.7) 10^3/uL Baso # (Auto) 0.1 (0.0-0.1) 10^3/uL Abs Immat Gran (auto) 0.03 (0.00-0.03) 10^3/uL Imm/Tot Granulo (auto) 0.3 (0.0-0.5) % Sodium 143 (136-145) mmol/L Potassium 3.7 (3.5-5.1) mmol/L Chloride 107 (98-107) mmol/L Carbon Dioxide 27.0 (21.0-32.0) mmol/L Anion Gap 12.7 BUN 14.0 (7.0-18.0) mg/dL Creatinine 0.94 (0.55-1.02) mg/dL Est GFR ( Amer) >60 (>=60) Est GFR (Non-Af Amer) >60 (>=60) BUN/Creatinine Ratio 14.9 Glucose 120 H (74-106) mg/dL Calcium 8.7 (8.5-10.1) mg/dL Total Bilirubin 0.2 (0.2-1.0) mg/dL AST 16 (15-37) U/L ALT 35 (14-59) U/L Alkaline Phosphatase 76 (46-116) U/L Total Protein 7.7 (6.4-8.2) g/dL Albumin 3.5 (3.4-5.0) g/dL Globulin 4.2 g/dL Albumin/Globulin Ratio 0.8 Lipase 56.0 (16.0-77.0) U/L Serum HCG, Qual Negative (NEGATIVE) Urine Color Yellow (YELLOW) Urine Clarity Clear (CLEAR) Urine pH 6.5 (5.0-9.0) Ur Specific [place] >=1.030 A (1.005-1.025) Urine Protein Negative (NEG/TRACE) mg/dL Urine Glucose (UA) Negative (NEGATIVE) mg/dL Urine Ketones Negative (NEGATIVE) mg/dL Urine Occult Blood Negative (NEGATIVE) Urine Nitrite Negative (NEGATIVE) Urine Bilirubin Negative (NEGATIVE) Urine Urobilinogen 0.2 (0.2-1.0) EU/dL Ur Leukocyte Esterase Negative (NEGATIVE) Salicylates <2.8 (<=19.9) mg/dL Urine Opiates Screen Negative (NEGATIVE) Ur Buprenorphine Scrn Negative (NEGATIVE) Ur Oxycodone Screen Negative (NEGATIVE) Urine Methadone Screen Negative (NEGATIVE) Acetaminophen <2.0 L (10.0-30.0) ug/mL Ur Barbiturates Screen Negative (NEGATIVE) U Tricyclic Antidepress Negative (NEGATIVE) Ur Phencyclidine Scrn Negative (NEGATIVE) Ur Amphetamines Screen Negative (NEGATIVE) U Methamphetamines Scrn Negative (NEGATIVE) U Benzodiazepines Scrn Negative (NEGATIVE) Urine Cocaine Screen Negative (NEGATIVE) U Cannabinoids Screen Negative (NEGATIVE) Ethanol Quant <3 mg/dL SARS-CoV-2 Ag (CV2AG) Negative (NEGATIVE) Discharge Plan Discharge Chief Complaint: Psychiatric Symptoms Clinical Impression: Suicidal ideation, Depression Patient Disposition: Home, Self-Care Time of Disposition Decision: 22:38 Condition: Good Prescriptions / Home Meds: No Action atorvastatin 10 mg tablet 10 mg PO DAILY docusate sodium [Col-Rite] 100 mg capsule 100 mg PO DAILY levothyroxine 50 mcg tablet 50 mcg PO DAILY lurasidone 120 mg tablet 120 mg PO QDAY medroxyprogesterone 150 mg/mL suspension 150 mg IM .every 90 days metformin 500 mg tablet 500 mg PO BID loperamide [Anti-Diarrheal (loperamide)] 2 mg capsule 4 mg PO Q6H PRN (Reason: loose stool) acetaminophen 325 mg capsule 650 mg PO Q4H PRN (Reason: pain) omeprazole 20 mg capsule,delayed release(DR/EC) 20 mg PO DAILY paliperidone 3 mg tablet extended release 24hr 3 mg PO Q24H prazosin 2 mg capsule 2 mg PO .qhs sertraline 100 mg tablet 200 mg PO Q24H buspirone 10 mg tablet 10 mg PO BID Invega Sustenna 156 mg/mL syringe 156 mg IM Q28D Patient Comments: due 07/19 victoza 1.8 mg auto-injector subcut DAILY Instructions: Depression (ED), Suicide Prevention (ED) Stand Alone Forms: Portal Instructions Referrals: Physician,Non-Staff, MD [Primary Care Provider] - 1 week
--- OUTSIDE RECORDS SUMMARY | 2023-11-14 19:34 | XMS_ITS | CCD ---
Author Name Unknown Address [address] [place] [address] Organization [facility] Care Team Providers Care Icebox Man Name Role Phone Plaqueminemarch Unavailable Unavailab le PlaquemineMarch Unavailable Unavailab le PlaquemineMarch Unavailable Unavailab le Gabo Miranda R Unavailable Unavailable No Doctor Assigned, Nodr Unavailable Unavail able Gabo Miranda R Unavailable Unavailable Ruth, Gabo R Unavailable Unavailable PlaquemineAdlea March Unavailable Unavailab le No Doctor Assigned, Nodr Unavailable Unavail able Marmaycol, Leander V Unavailable Unavailable Marquard Leander V Unavailable Unavailable Ruth, Gabo R Unavailable Unavailable No Doctor Assigned, Nodr Unavailable Unavail able Ivanauskas, Saulius Unavailable Unavailable Ivanauskas, Saulius Unavailable Unavailable No Doctor Assigned, Nodr Unavailable Unavail able PlaquemineMarch Unavailable Unavailab le PlaquemineMarch Unavailable Unavailab le No Doctor Assigned, Nodr Unavailable Unavail able Arrington, Pj Unavailable Unavailable Arrington, Pj Unavailable Unavailable Herberth, Ryan Unavailable Unavailable Herberth, Ryan Unavailable Unavailable Hajdari, Astrit H Unavailable Unavailable Hajdari, Astrit H Unavailable Unavailable Hajdari, Astrit H Unavailable Unavailable Hajdari, Astrit H Unavailable Unavailable Juan Luis, Barbara Unavailable Unavailable Aguilar, Berta F Unavailable Unavailable Aguilar, Berta F Unavailable Unavailable Cadiz, Barbara Unavailable Unavailable Aguilar, Berta F Unavailable Unavailable Aguilar, Berta F Unavailable Unavailable Cadiz, Barbara Unavailable Unavailable Herberth, Ryan Unavailable Unavailable Herberth, Ryan Unavailable Unavailable Juan Luis, Barbaar Unavailable Unavailable Dena, Jamee Unavailable Unavailable Dena, Jamee Unavailable Unavailable Cadiz, Barbara Unavailable Unavailable Dena, Jamee Unavailable Unavailable Dena, Jamee Unavailable Unavailable Juan Luis, Barbara Unavailable Unavailable Juan Luis, Barbara Unavailable Unavailable Aguilar, Berta F Unavailable Unavailable Aguilar, Berta F Unavailable Unavailable Cadiz, Barbara Unavailable Unavailable Ching, Damon Unavailable Unavailable Ching, Damon Unavailable Unavailable Cadiz, Barbara Unavailable Unavailable Herberth, Ryan Unavailable Unavailable [...] JAKLEEN Unavailable Unavailable LABBAD, JAKLEEN Unavailable Unavailable Juanl Uis, Barbara Unavailable Unavailable Juan Luis, Barbara Unavailable Unavailable Hajdari, Astrit H Unavailable Unavailable Hajdari, Astrit H Unavailable Unavailable Juan Luis, Barbara Unavailable Unavailable GARDNER, KUL B Unavailable Unavailable GARDNER, KUL B Unavailable Unavailable Carolina Welch Attending Physician Unavailable Jay Gomez Primary Care Provider [phone] [facility], DOCTOR Primary Care Unavailable DOV WEINSTEIN Admitting Unavailable DOV WEINSTEIN Attending Unavailable WILTON LEGER Consulting Unavailable DOV WEINSTEIN Consulting Unavailable GARLAPATI, KRISHNAIA C Admitting Unavailab becca PRIETO KRISHNAIA C Attending Unavailab becca MUSTAFA, DOCTOR Primary Care Unavailable SHAWNA, KRISHNAIA C Consulting Unavailab Jay Tang DO Primary Care Provider [phone] Joi Prieto MD Primary Care Provider Unavailable Primary Care Provider Unavailshen Pearce DMD, MD, Hugo Unavailable PROVIDER, UNKNOWN Attending Unavailable PROVIDER, UNKNOWN Admitting Unavailable GENESIS QURESHI Referring Unavailable PATIENT, SELF Referring Unavailable PROVIDER, UNKNOWN Attending Unavailable PROVIDER, UNKNOWN Admitting Unavailable Heath Farley APRN, CNP Primary Care Provid er Rhonda FINE ARTS INSTRUCTOR - COLOR MATCHER, Heath M Primary Care Provid er Rhonda FINE ARTS INSTRUCTOR - COLOR MATCHER, Heath M Primary Care Provid er Rhonda FINE ARTS INSTRUCTOR - COLOR MATCHER, Heath M Primary Care Provid er MD Joi Prieto Primary Care Provider MD Arben Webber Admit Provider [phone] MD Arben Webber Attending Provider Nicolas Santi Unavailable Patti Mcnamara Unavailable MD Joi Prieto Primary Care Provider MD Blade Goel Admit Provider MD Arben Webber Attending Provider [phone] MD Blade Goel Attending Provider RHONDA, HEATH M Primary Care Unavailable GALINA, LISSETTE L Referring Unavailable RHONDA, HEATH M Primary Care Unavailable GALINA, LISSETTE L Referring Unavailable GALINA, LISSETTE L Referring Unavailable RHONDA, HEATH M Primary Care Unavailable GALINA, LISSETTE L Referring Unavailable RHONDA, HEATH M Primary Care Unavailable RHONDA, HEATH M Primary Care Unavailable GALINA, LISSETTE L Referring Unavailable RHONDA, HEATH M Primary Care Unavailable POOL, RAIZA E Referring Unavailable RHONDA, HEATH M Primary Care Unavailable GALINA, LISSETTE L Referring Unavailable RHONDA, HEATH M Primary Care Unavailable GALINA, LISSETTE L Referring Unavailable RHONDA, HEATH M Primary Care Unavailable GALINA, LISSETTE L Referring Unavailable Blade Goel Admitting Unavailab le Blade Goel Attending Unavailab Joi Mart Primary Care Unavaila ble Blade Goel Admitting Unavailab Blade Zuñiga Attending Unavailab le Joi Prieto Primary Care Unavaila Blade Pena Admitting Unavailab le Blade Goel Attending Unavailab le Joi Prieto Primary Care Unavaila ble Abkar, Arben Admitting Unavailable Akbar, Arben Attending Unavailable Joi Prieto Primary Care Unavaila ble Ranjit Prietosariah Trish Primary Care Unavaila ble Blade Goel Admitting Unavailab le Akbar, Arben Attending Unavailable Allergies Allergy Classification Reported Allergen(s) Allergy Type Date of Onset Reaction(s) Facility (2 sources) Bee/Wasp/Ant venom; 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: [Bee Stings] Propensity to adverse reactions to drug (disorder) [facility] Repository (1 source) No Known Allergies; 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: [No Known Allergies] Propensity to adverse reactions to drug (disorder) [facility] Repository (1 source) No Known Medication Allergies; 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: [No Known Medication Allergies] Propensity to adverse reactions (disorder) [facility] Repository (1 source) bee venom Drug allergy (disorder) [facility] Repository (4 sources) Bee Sting Drug allergy anaphylaxis [place] Other (1 source) bee venom protein (honey bee) Drug allergy (disorder) [facility] Repository Medications Current Medications Medication Drug Class(es) Dates Sig (Normalized) Sig (Original) acetaminophen 325 mg oral capsule (7 sources) Start: 10-03-2023 take 650 mg by mouth every four hours Acetaminophen Active 650 MG PO Every 4 hours October 03, 2023 12:00am Start: 06-02-2019 take 650 mg by mouth every four hours as needed for pain Acetaminophen [Tylenol] 650 MG Oral Q4H PRN For Pain June 02, 2019 Active Start: 06-02-2019 End: 06-18-2023 take 2 capsules by mouth every four hours Acetaminophen (Tylenol) 325 mg Capsule Discontinued 650 MG PO Q4H June 01, 2019 11:00pm June 18, 2023 10:40am acetaminophen 325 mg / HYDROcodone bitartrate 5 mg oral tablet (3 sources) Opioid Agonist Start: 04-05-2022 End: 04-12-2022 take 1 tablet by mouth every six hours as needed for pain hydrocodone-acetaminophen (NORCO) 5-325 mg per tablet Indications: Chronic dental caries extending to pulp Take 1 Tablet by mouth every 6 hours as needed for Pain for up to 7 days. 12 Tablet 0 04/05/2022 04/12/2022 Active atorvastatin 10 mg oral tablet (12 sources) HMG-CoA Reductase Inhibitor Start: 06-02-2019 End: 06-18-2023 take 10 mg by mouth at bedtime Atorvastatin Active 10 MG PO Bedtime June 17, 2023 11:00pm benzocaine 6 mg / menthol 10 mg oral lozenge (4 sources) Standardized Chemical Allergen Chloraseptic 6-10 MG 1 lozenge as needed Mouth/Throat every 2 hrs Active busPIRone hydrochloride 15 mg oral tablet (6 sources) Start: 10-05-2023 take 15 mg by mouth three times daily Buspirone Active 15 MG PO Three times daily 45 15 October 05, 2023 12:00am Start: 06-22-2023 End: 10-06-2023 take 10 mg by mouth twice daily Buspirone Discontinued 10 MG PO Twice daily 60 30 June 21, 2023 11:00pm October 06, 2023 7:15am chlorhexidine gluconate 1.2 mg/ml mouthwash (3 sources) [...] not swallow. 1 mL 0 04/05/2022 Active docusate sodium 100 mg oral capsule (10 sources) Start: 06-02-2019 take 1 capsule by mouth once daily Docusate Sodium (Colace) 100 mg Capsule Active 100 MG PO Daily June 01, 2019 11:00pm etodolac 500 mg oral tablet (4 sources) Nonsteroidal Anti-inflammatory Drug take 1 tablet by mouth every twelve hours Etodolac 500 MG 1 tablet with food Orally Twice a day Active ibuprofen 600 mg oral tablet (16 sources) Nonsteroidal Anti-inflammatory Drug Start: 04-05-2022 End: 04-12-2022 take 1 tablet by mouth every six hours as needed for pain ibuprofen (ADVIL;MOTRIN) 600 MG tablet TAKE 1 TABLET BY MOUTH EVERY 6 HOURS NEEDED FOR PAIN FOR UP TO 7 DAYS. 0 04/05/2022 Active Start: 06-02-2019 End: 06-06-2019 take 1 tablet by mouth every four hours Ibuprofen Discontinued 400 TAB PO Q4H June 01, 2019 11:00pm June 06, 2019 12:20pm levothyroxine sodium 0.05 mg oral tablet (20 sources) l-Thyroxine Start: 06-02-2019 take 1 tablet by mouth once daily Levothyroxine (Synthroid) 50 mcg Tablet Active 50 MCG PO Daily June 01, 2019 11:00pm take 1 tablet by zane th once daily in the morning Levothyroxine Sodium 50 MCG 1 tablet in the morning on an empty stomach Orally Once a day Active 3 ml liraglutide 6 mg/ml pen injector (4 sources) GLP-1 Receptor Agonist Start: 10-03-2023 Liraglutide (Victoza 2-Tai) 0.6 mg/0.1 mL (18 mg/3 mL) Pen Injector Active 1.8 MG SUBCUT Daily October 03, 2023 12:00am Start: 08-09-2023 Victoza 18 MG/ 3ML 0.6 mg once daily for week 1, followed by 1.2 mg once daily for week 2, followed by 1.8 mg once daily for week 3 and beyond Subcutaneous Once daily for 28 days Aug, Active loperamide hydrochloride 2 mg oral capsule (10 sources) Opioid Agonist Start: 06-02-2019 take 1 capsule by mouth every six hours as needed Loperamide Active 2 MG PO Every 6 hours June 01, 2019 11:00pm 2 caps first loose stool then 1 cap each additional loose stool as needed max 16mg/24hrs Start: 06-02-2019 Loperamide 2 M G Oral EVERY 1-3 HOURS PRN For Diarrhea June 02, 2019 Active 2 caps first loose stool then 1 cap each additional loose stool as needed max 16mg/24hrs take 2 capsules by m outh every six hours Loperamide HCl 2 MG 2 capsule as needed Orally Four times a day Active lurasidone hydrochloride 120 mg oral tablet (20 sources) Atypical Antipsychotic Start: 06-18-2023 take 120 mg by mouth once daily Lurasidone Active 120 MG PO Daily June 17, 2023 11:00pm Start: 06-23-2019 End: 06-18-2023 Lurasidone Discontinued 120 MG PO Daily June 23, 2019 10:45am June 18, 2023 11:26am must administer with food (at least 350 calories) Start: 06-02-2019 End: 06-23-2019 take 1 tablet by mouth once daily Lurasidone (Latuda) 80 mg Tablet Discontinued 80 MG PO Daily June 01, 2019 11:00pm June 23, 2019 10:39am metFORMIN hydrochloride 500 mg oral tablet (20 sources) Biguanide Start: 06-02-2019 take 500 mg by mouth twice daily at mealtime Metformin Active 500 MG PO Twice daily with meals June 01, 2019 11:00pm take 1 tablet by zane th every twelve hours metFORMIN HCl 1000 MG 1 tablet with a me al Orally bid for 30 days Active Milk of Magnesia 400 MG/5ML (2 [...] 07/23/2017 Active olopatadine 1 mg/ml ophthalmic solution (4 sources) Histamine-1 Receptor Inhibitor take 1 drop(s) into the eye(s) twice daily Olopatadine HCl 0.1 % 1 drop into affected eye Ophthalmic Twice a day Active take 1 drop(s) into the eye(s) twice daily Olopatadine HCl 0.1 % 1 drop into affect ed eye Ophthalmic Twice a day Active omeprazole 20 mg delayed release oral capsule (6 sources) Proton Pump Inhibitor Start: 06-23-2019 take 20 mg by mouth once daily Omeprazole Active 20 MG PO Daily June 22, 2019 11:00pm ondansetron 4 mg disintegrating oral tablet (2 sources) Serotonin-3 Receptor Antagonist Start: 10-06-2023 take 4 mg by mouth every eight hours Ondansetron Active 4 MG PO Every 8 hours 15 October 06, 2023 12:00am OXcarbazepine 300 mg oral tablet (12 sources) Anti-epileptic Agent Start: 07-23-2017 take 1 tablet by mouth twice daily OXcarbazepine (TRILEPTAL) 300 MG tablet Take 1 tablet by mouth 2 times daily 60 tablet 0 07/23/2017 Active 24 hr paliperidone 3 mg extended release oral tablet (20 sources) Atypical Antipsychotic Start: 10-05-2023 take 3 mg by mouth twice daily Paliperidone Active 3 MG PO Twice daily 30 October 05, 2023 12:00am Start: 06-22-2023 Paliperidone P almitate (Invega Sustenna) 156 mg/mL syringe Active 156 MG IM Q28D June 21, 2023 11:00pm Start: 06-06-2019 End: 10-06-2023 take 3 mg by mouth once daily at bedtime Paliperidone Discontinued 3 MG PO Daily at bedtime 30 June 22, 2019 11:00pm October 06, 2023 7:15am Start: 06-02-2019 End: 06-06-2019 take 1 tablet by mouth once daily Paliperidone (Invega) 6 mg Tablet Extended Release 24hr Discontinued 6 MG PO Daily June 01, 2019 11:00pm June 06, 2019 12:20pm prazosin 2 mg oral capsule (13 sources) alpha-Adrenergic Lara Start: 07-12-2023 take 2 mg by mouth once daily at bedtime Prazosin Active 2 MG PO Daily at bedtime July 11, 2023 11:00pm Start: 06-23-2019 End: 07-12-2023 take 2 mg by mouth once daily at bedtime Prazosin Discontinued 2 MG PO Daily at bedtime 60 June 22, 2019 11:00pm July 11, 2023 11:38pm Start: 06-06-2019 End: 06-23-2019 take 1 mg by mouth once daily at bedtime Prazosin Discontinued 1 MG PO Daily at bedtime 14 June 05, 2019 11:00pm June 23, 2019 10:39am 24 hr QUEtiapine 300 mg extended release oral tablet (12 sources) Atypical Antipsychotic take 1 tablet by mouth once daily QUEtiapine (SEROQUEL XR) 300 MG extended release tablet Take 300 mg by mouth nightly. 0 Active risperiDONE 3 mg oral tablet (12 sources) Atypical Antipsychotic Start: take 1 tablet by mouth twice daily risperiDONE (RISPERDAL) 3 MG tablet Take 1 tablet by mouth 2 times daily 60 tablet 0 07/23/2017 Active sertraline 100 mg oral tablet (17 sources) Serotonin Reuptake Inhibitor Start: take 200 mg by mouth once daily Sertraline Active 200 MG PO Daily 60 July 16, 2023 10:19am Start: 07-12-2023 End: 07-16-2023 take 50 mg by mouth once daily, then take 150 mg by mouth once daily Sertraline Discontinued 100 MG PO Daily July 11, 2023 11:00pm July 16, 2023 10:19am Take with 50mg for total dose of 150 mg daily Start: 07-12-2023 End: 07-16-2023 take 100 mg by mouth once daily, then take 150 mg by mouth once daily Sertraline Discontinued 50 MG PO Daily July 11, 2023 11:00pm July 16, 2023 10:19am Take with 100 mg for total dose of 150 mg daily Start: 06-22-2023 End: 07-12-2023 take 150 mg by mouth once daily Sertraline Discontinue d 150 MG PO Daily June 21, 2023 11:00pm July 11, 2023 11:40pm Start: 06-23-2019 End: 06-22-2023 take 100 mg by mouth once daily Sertraline Discontinue d 100 MG PO Daily June 22, 2019 11:00pm June 22, 2023 10:35am Start: 06-02-2019 End: 06-23-2019 take 1 tablet by mouth once daily Sertraline (Zoloft) 50 mg Tablet Discontinued 50 MG PO Daily June 01, 2019 11:00pm June 23, 2019 10:39am take 2 tablets by [facility] every twenty-four hours Sertraline HCl [...] Drug Class(es) Dates Sig (Normalized) Sig (Original) Albuterol (6 sources) beta2-Adrenergic Agonist Start: 06-02-2019 take 1 [...] Inhaler Discontinued 2 PUFF INHALATION Q4H June 01, 2019 11:00pm June 18, 2023 11:26am aluminum hydroxide 80 mg/ml / magnesium hydroxide 80 mg/ml / simethicone 8 mg/ml oral suspension (10 sources) Start: 06-02-2019 End: 06-18-2023 take 1 mL by mouth every four hours Alum-Mag Hydroxide-Simeth (Maalox Maximum Strength) 400-400-40 mg/5 mL Suspension Discontinued 10 ML PO Q4H June 01, 2019 11:00pm June 18, 2023 11:26am take 10 mL by mouth four times daily as needed Cori-Lanta 200-200-20 MG/5ML 10 mL as needed Orally Four times a day Active aspirin 325 mg oral tablet (6 sources) Platelet Aggregation Inhibitor, Nonsteroidal Anti-inflammatory Drug Start: 06-02-2019 End: 06-18-2023 take 325 mg by mouth once daily Aspirin Discontinued 325 MG PO Daily June 01, 2019 11:00pm June 18, 2023 11:26am clotrimazole 10 mg/ml topical cream (6 sources) Azole Antifungal Start: 06-02-2019 End: 06-14-2019 Clotrimazole (Lotrimin Af (Clotrimazole)) 1 % Cream Discontinued 1 APPLIC TOPICAL Twice daily June 01, 2019 11:00pm June 13, 2019 11:43pm apply to rash on left upper arm 24 hr dexmethylphenidate hydrochloride 25 mg extended release oral capsule (20 sources) Central Nervous System Stimulant Start: 06-14-2019 End: 06-23-2019 Dexmethylphenidate (Focalin Xr) 25 mg Capsule,Er Biphasic 50-50 Discontinued 25 MG PO Every morning June 13, 2019 11:00pm June 23, 2019 10:39am Start: 06-02-2019 End: 06-06-2019 Dexmethylphenidate (Focalin Xr) 25 mg Capsule,Er Biphasic 50-50 Discontinued 25 MG PO Every morning June 01, 2019 11:00pm June 06, 2019 12:20pm Dexmethylphenida te HCl ER 30 MG CP24 Take 30 mg/day by mouth 2 times daily. 0 Active dextromethorphan hydrobromide 2 mg/ml / guaiFENesin 20 mg/ml oral solution (10 sources) Uncompetitive T-ldgotc-T-aspartate Receptor Antagonist, Sigma-1 Agonist Start: 06-02-2019 End: 06-18-2023 take 1 mL by mouth every four hours Dextromethorphan-Guaifenesin (Robafen Dm Cough-Chest Congest) 10-100 mg/5 mL Syrup Discontinued 10 ML PO Q4H June 01, 2019 11:00pm June 18, 2023 10:40am Robafen DM 20-20 0 MG/20ML 20 mL [...] to procedure. 1 Tablet 0 02/01/2022 02/01/2022 ammonium lactate 120 mg/ml topical lotion (6 sources) Start: 06-02-2019 End: 06-18-2023 Ammonium Lactate Discontinued 1 APPLIC TOPICAL Twice daily June 01, 2019 11:00pm June 18, 2023 11:26am magnesium hydroxide 80 mg/ml oral suspension (8 sources) Start: 06-02-2019 take 1 mL by mouth once daily as needed for constipation Magnesium Hydroxide 30 ML Oral Daily PRN For Constipation June 02, 2019 Active if no bm in 4 days Start: 06-02-2019 End: 06-18-2023 take 1 mL by mouth once daily Magnesium Hydroxide (Mil k Of Magnesia) 400 mg/5 mL Suspension Discontinued 30 ML PO Daily June 01, 2019 11:00pm June 18, 2023 11:26am if no bm in 4 days Start: [...] 150 MG IM EVERY 3 MONTHS June 01, 2019 11:00pm Start: 09-13-2017 DEPO-PROVERA 1 Aug, 150 mg mupirocin 0.02 mg/mg topical ointment (6 sources) RNA Synthetase Inhibitor Antibacterial Start: 06-02-2019 End: 06-18-2023 Mupirocin Discontinued 1 APPLIC TOPICAL Three times daily June 01, 2019 11:00pm June 18, 2023 11:25am breast wound PARoxetine hydrochloride 20 mg oral tablet (6 sources) Serotonin Reuptake Inhibitor Start: 06-02-2019 End: 06-06-2019 take 1 tablet by mouth once daily Paroxetine Hcl (Paxil) 20 mg Tablet Discontinued 20 MG PO Daily June 01, 2019 11:00pm June 06, 2019 12:20pm petrolatum 1 mg/mg topical ointment (2 sources) Start: 06-18-2023 End: 10-03-2023 White Petrolatum (Petroleum Jelly) Gel Discontinued 1 APPLIC TOPICAL Twice daily June 17, 2023 11:00pm October 03, 2023 5:43am to bilat heels divalproex sodium 500 mg delayed release oral tablet (6 sources) Mood Stabilizer, Anti-epileptic Agent Start: 06-02-2019 take 1000 mg by mouth once daily Divalproex 1000 MG Oral Daily June 02, 2019 Active Start: 06-02-2019 End: 06-23-2019 take 2 tablets by mouth once daily Divalproex (Depakote) 500 mg Tablet,Delayed Release (Dr/Ec) Discontinued 1000 MG PO Daily June 01, 2019 11:00pm June 23, 2019 10:39am zinc oxide 130 mg/ml topical cream (6 sources) Start: 06-02-2019 End: 06-18-2023 Zinc Oxide (Desitin Rapid Re lief) 13 % Cream Discontinued 1 APPLIC TOPICAL Three times daily June 01, 2019 11:00pm June 18, 2023 10:40am Problems Active Problems Problem Classification Problem Date Documented Date Episodic/Chronic Administrative/socia l admission (4 sources) Dietary counseling and surveillance; 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: [Other [...] 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: [Attention-deficit hyperactivity disorder, unspecified type] Onset: 08-13-2023 Chronic Developmental disorders (20 sources) Disorder of speech and language development; 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] Onset: 04-13-2004 10-07-2019 Chronic Diabetes mellitus without complication (15 sources) Type 2 diabetes mellitus without complication; 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: [Type 2 diabetes mellitus without complications] Onset: 09-16-2019 10-07-2019 Chronic Diabetes mellitus without complication (12 sources) Prediabetes; 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: [Prediabetes] Onset: 12-14-2020 03-16-2021 [...] 10-07-2019 Chronic Genitourinary symptoms and ill-defined conditions (15 sources) Personal history of urinary (tract) infections; 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: [History of urinary tract infection] Onset: 09-16-2019 03-16-2021 Episodic Immunizations and screening for infectious disease (6 sources) Contact with and (suspected) exposure to [...] UNS] Onset: 09-16-2019 Other aftercare (2 sources) [facility]DC (current) use of oral hypoglycemic drugs; 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: [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] Onset: 09-16-2019 10-07-2019 Other nutritional; endocrine; and metabolic disorders (12 sources) Developmental delay; 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: [Other disorders of psychological development] Onset: 04-13-2004 10-07-2019 Chronic Other nutritional; endocrine; and metabolic disorders (17 sources) Morbid obesity; 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: [Morbid (severe) obesity due to excess calories] Onset: 12-18-2017 10-07-2019 Chronic Other nutritional; endocrine; and metabolic disorders (3 sources) Morbid (severe) obesity due to excess calories; 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: [Morbid (severe) obesity due to excess calories] Onset: 08-13-2023 Chronic Other nutritional; endocrine; and metabolic disorders (2 sources) Abnormal weight gain; 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: [Abnormal weight gain] Onset: 08-13-2023 Episodic Other screening for suspected conditions (not [...] current use of drug therapy; 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: [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] Onset: 09-16-2019 10-07-2019 Unclassified (1 source) Dietary counseling and surveillance; 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: [Dietary counseling and surveillance] Onset: 10-15-2023 Unclassified (1 source) Schizoaffective disorder, unspecified; 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: [...] 09-14-2019 Episodic Other aftercare (1 source) 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; 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: [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 CURRENT DRUG THERAPY] Onset: 09-16-2019 Episodic Other aftercare (11 sources) Long-term current use of oral hypoglycemic medication; 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: [[facility]DC (current) use of oral hypoglycemic drugs] Onset: 09-16-2019 10-07-2019 Episodic Other aftercare (11 sources) Long-term current use of drug therapy; 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: [Other halfway (current) drug therapy] Onset: 09-16-2019 Resolved: 03-16-2021 [...] Test Name Value Interpretation Reference Range Facility Chlamydia/GC DNA, TPon 11-05 Chlamydia Probe, TP Negative Normal NEG [facility] Comment on above: Result Comment: CHLA MYDIA TRACHOMATIS DNA not detected by nucleic acid amplification. This test is intended for medical purposes only and is not valid for the evaluation of suspected sexual abuse or for other forensic purposes. In certain contexts, culture may be required to meet applicable laws and regulations for diagnosis of C. trachomatis and N. gonorrhoeae infections. Per 2014 CDC recommendations, this test does not include confirmation of positive results by an alternative nucleic acid target. Performed By: #### C P #### [facility] [address] [place] [address] Metal Filer: Tray Diaz MD #### GLYHGB #### [address] [address] Metal Filer: Guido Jhaveri MD Gonorrhea Probe, TP Negative Normal NEG [facility] Comment on above: Result Comment: NEIS SERIA GONORRHOEAE DNA not detected by nucleic acid amplification. This test is intended for medical purposes only and is not valid for the evaluation of suspected sexual abuse or for other forensic purposes. In certain contexts, culture may be required to meet applicable laws and regulations for diagnosis of C. trachomatis and N. gonorrhoeae infections. Per 2014 CDC recommendations, this test does not include confirmation of positive results by an alternative nucleic acid target. Performed By: #### C P #### [address] [place] [address] Metal Filer: Tray Diaz MD #### GLYHGB #### [address] [id number] Metal Filer: Guido Jhaveri MD CBCon 10-24-2023 Erythrocyte distribution width (RBC) [Ratio] 13.1 % Normal 11.8-14.4 [facility] Comment on above: Performed By: #### V ALPC, CBC, CPBILC #### [address] [place] [address] Metal Filer: Tray Diaz MD #### GLYHGB, LIPR #### [address] [id number] Metal Filer: Guido Jhaveri MD Hematocrit (Bld) [Volume fraction] 41.3 % Normal 36.3-47.1 [facility] Comment on above: Performed By: #### V ALPC, CBC, CPBILC #### [address] [place] [address] Metal Filer: Tray Diaz MD #### GLYHGB, LIPR #### [place] [address] [place], [place] [id number] Metal Filer: Guido Jhaveri MD Hemoglobin (Bld) [Mass/Vol] 13.4 g/dL Normal 11.9-15.1 [facility] Comment on above: Performed By: #### V ALPC, CBC, CPBILC #### [address] [place] [address] Metal Filer: Tray Diaz MD #### GLYHGB, LIPR #### [address] [id number] Metal Filer: Guido Jhaveri MD MCH (RBC) [Entitic mass] 27.1 pg Normal 25.2-33.5 [facility] Comment on above: Performed By: #### V ALPC, CBC, CPBILC #### [address] [place] [id number] Metal Filer: Tray Diaz MD #### GLYHGB, LIPR #### [address] [id number] Metal Filer: Guido Jhaveri MD MCHC (RBC) [Mass/Vol] 32.4 g/dL Normal 28.4-34.8 [facility] Comment on above: Performed By: #### V ALPC, CBC, CPBILC #### [address] [place] [id number] Metal Filer: Tray Diaz MD #### GLYHGJerome, LIPR #### [place] [address] Metal Filer: Guido Jhaveri MD MCV (RBC) [Entitic vol] 83.6 fL Normal 82.6-102.9 [facility] Comment on above: Performed By: #### V ALPC, CBC, CPBILC #### [address] [place] [id number] Metal Filer: Tray Diaz MD #### GLYHGB, LIPR #### [place] [address] Metal Filer: Guido Jhaveri MD NRBC Automated 0.0 per 100 WBC Normal 0.0 [facility] Comment on above: Performed By: #### V ALPC, CBC, CPBILC #### [address] [place], [place] [phone] Metal Filer: Tray Diaz MD #### GLYHGB, LIPR #### [address] [place], [place] [id number] Metal Filer: Guido Jhaveri MD Platelet mean volume (Bld) [Entitic vol] 10.4 fL Normal 8.1-13.5 [facility] Comment on above: Performed By: #### V ALPC, CBC, CPBILC #### [address] [place] [address] Metal Filer: Tray Diaz MD #### GLYHGB, LIPR #### [address] [phone] Metal Filer: Guido Jhaveri MD Platelets (Bld) [#/Vol] 252 10*3/uL Normal 138-453 [facility] Comment on above: Performed By: #### V ALPC, CBC, CPBILC #### [address] [place] [id number] Metal Filer: Tray Diaz MD #### PRINCEHGJerome, LIPR #### [address] [address] Metal Filer: Guido Jhaveri MD RBC (Bld) [#/Vol] 4.94 10*6/uL Normal 3.95-5.11 [facility] Comment on above: Performed By: #### V ALPC, CBC, CPBILC #### [address] [place], [place] [phone] Metal Filer: Tray Diaz MD #### GLYHGB, LIPR #### [address] [id number] Metal Filer: Guido Jhaveri MD WBC (Bld) [#/Vol] 10.5 10*3/uL Normal 3.5-11.3 [facility] Comment on above: Performed By: #### V ALPC, CBC, CPBILC #### [address] [place], [place] [phone] Metal Filer: Tray Diaz MD #### GLYHGB, LIPR #### [address] [address] Metal Filer: Guido Jhaveri MD Comp Metab w/Bili Pron 10-24 Anion gap [Moles/Vol] 13 mmol/L Normal 9-17 [facility] Comment on above: Performed By: #### V ALPC, CBC, CPBILC #### [address] [place] [address] Metal Filer: Tray Diaz MD #### GLYHGB, LIPR #### [address] [id number] Metal Filer: Guido Jhaveri MD Bilirubin [Mass/Vol] mg/dL Low 0.3-1.2 [facility] Comment on above: Performed By: #### V ALPC, CBC, CPBILC #### [address] [place], [place] [phone] Metal Filer: Tray Diaz MD #### GLYHGB, LIPR #### [address] [address] Metal Filer: Guido Jhaveri MD Bilirubin, Indirect Can not be calculated Normal 0.0-1 .0 [facility] Comment on above: Performed By: #### V ALPC, CBC, CPBILC #### [address] [place], [place] [phone] Metal Filer: Tray Diaz MD #### GLYHGB, LIPR #### [address] [id number] Metal Filer: Guido Jhaveri MD Sodium [Moles/Vol] 144 mmol/L Normal 135-144 [facility] Comment on above: Performed By: #### V ALPC, CBC, CPBILC #### [address] [place] [phone] ( Metal Filer: Tray Diaz MD #### GLYHGB, LIPR #### [address] [id number] Metal Filer: Guido Jhaveri MD Albumin [Mass/Vol] 3.6 g/dL Normal 3.5-5.2 [facility] Comment on above: Performed By: #### V ALPC, CBC, CPBILC #### [address] [place] [phone] ( Metal Filer: Tray Diaz MD #### GLYHGJerome, LIPR #### [address] [address] Metal Filer: Guido Jhaveri MD Albumin/Glob Ratio 1.3 Normal 1.0-2.5 [facility] Comment on above: Performed By: #### V ALPC, CBC, CPBILC #### [address] [place] [phone] Metal Filer: Tray Diaz MD #### GLYHGJerome, LIPR #### [address] [address] Metal Filer: Guido Jhaveri MD Alkaline Phos 67 U/L Normal 35-104 [facility] Comment on above: Performed By: #### V ALPC, CBC, CPBILC #### [address] [place] [phone] Metal Filer: Tray Diaz MD #### GLYHGB, LIPR #### [address] [address] Metal Filer: Guido Jhaveri MD ALT [Catalytic activity/Vol] 25 U/L Normal 5-33 [facility] Comment on above: Performed By: #### V ALPC, CBC, CPBILC #### [address] [place], [place] [phone] Metal Filer: Tray Diaz MD #### GLYHGB, LIPR #### [address] [id number] Metal Filer: Guido Jhaveri MD AST [Catalytic activity/Vol] 14 U/L Normal <32 [facility] Comment on above: Performed By: #### V ALPC, CBC, CPBILC #### [address] [place] [address] Metal Filer: Tray Diaz MD #### GLYHGB, LIPR #### [address] [phone] Metal Filer: Guido Jhaveri MD Bilirubin.indirect [Mass/Vol] mg/dL Normal <0.3 [facility] Comment on above: Performed By: #### V ALPC, CBC, CPBILC #### [address] [place] [address] Metal Filer: Tray Diaz MD #### GLYHGB, LIPR #### [address] [phone] Metal Filer: Guido Jhaveri MD Calcium [Mass/Vol] 8.6 mg/dL Normal 8.6-10.4 [facility] Comment on above: Performed By: #### V ALPC, CBC, CPBILC #### [address] [place] [address] Metal Filer: Tray Diaz MD #### GLYHGB, LIPR #### [address] [place], [place] [phone] Metal Filer: Guido Jhaveri MD Chloride [Moles/Vol] 109 mmol/L High 98-107 [facility] Comment on above: Performed By: #### V ALPC, CBC, CPBILC #### [facility] [address] [place] [address] Metal Filer: Tray Diaz MD #### GLYHGB, LIPR #### [address] [phone] Metal Filer: Guido Jhaveri MD CO2 [Moles/Vol] 22 mmol/L Normal 20-31 [facility] Comment on above: Performed By: #### V ALPC, CBC, CPBILC #### [facility] [address] [place] [address] [place] [address] Metal Filer: Tray Diaz MD #### GLYHGB, LIPR #### [address] [id number] Metal Filer: Guido Jhaveri MD Creatinine [Mass/Vol] 0.7 mg/dL Normal 0.5-0.9 [facility] Comment on above: Performed By: #### V ALPC, CBC, CPBILC #### [facility] [address] [place] [address] Dr. [place], [place] [phone] Metal Filer: Tray Diaz MD #### GLYHGB, LIPR #### [address] [id number] Metal Filer: Guido Jhaveri MD GFR/1.73 sq M.predicted among non-blacks MDRD (S/P/Bld) [Vol rate/Area] mL/min/{1.73_m2} Normal >60 [facility] Comment on above: Result Comment: These [...] affects renal tubular secretion. Performed By: #### V ALPC, CBC, CPBILC #### [address] [place], [place] [phone] Metal Filer: Tray Diaz MD #### GLYHGB, LIPR #### [address] [phone] Metal Filer: Guido Jhaveri MD Glucose [Mass/Vol] 110 mg/dL High 70-99 [facility] Comment on above: Performed By: #### V ALPC, CBC, CPBILC #### [address] [place], [place] [id number] Metal Filer: Tray Diaz MD #### GLYHGB, LIPR #### [address] [id number] Metal Filer: Guido Jhaveri MD Potassium [Moles/Vol] 3.8 mmol/L Normal 3.7-5.3 [facility] Comment on above: Performed By: #### V ALPC, CBC, CPBILC #### [address] [place], [place] [phone] Metal Filer: Tray Diaz MD #### GLYHGB, LIPR #### [address] [phone] Metal Filer: Guido Jhaveri MD Protein [Mass/Vol] 6.3 g/dL Low 6.4-8.3 [facility] Comment on above: Performed By: #### V ALPC, CBC, CPBILC #### [address] [place] [address] Metal Filer: Tray Diaz MD #### GLYHGB, LIPR #### [address] [id number] Metal Filer: Guido Jhaveri MD Urea nitrogen [Mass/Vol] 10 mg/dL Normal 6-20 [facility] Comment on above: Performed By: #### V ALPC, CBC, CPBILC #### [facility] [address] [place] [address] Metal Filer: Tray Diaz MD #### GLYHGB, LIPR #### [address] [place], [place] [id number] Metal Filer: Guido Jhaveri MD Hemoglobin A1Con 2 Glucose [Mass/Vol] 117 mg/dL Normal [facility] Comment on above: Result Comment: The ADA and AACC recommend providing the estimated average glucose result to permit better patient understanding of their HBA1c result. Performed By: #### V ALPC, CBC, CPBILC #### [address] [place], [place] [phone] Metal Filer: Tray Diaz MD #### GLYHGB, LIPR #### [address] [place], [place] [id number] Metal Filer: Guido Jhaveri MD HbA1c (Bld) [Mass fraction] 5.7 % Normal 4.0-6.0 [facility] Comment on above: Performed By: #### V ALPC, CBC, CPBILC #### [facility] [address] [place], [place] [phone] Metal Filer: Tray Diaz MD #### GLYHGB, LIPR #### [address] [place], [place] [id number] Metal Filer: Guido Jhaveri MD Lipid Profileon 7 Cholesterol [Mass/Vol] 89 mg/dL Normal <200 [facility] Comment on above: Result Comment: Cholesterol Guidelines: <200 Desirable 200-240 Borderline >240 Undesirable Performed By: #### C P #### [facility] [address] [place], [place] [phone] Metal Filer: Tray Diaz MD #### GLYHGB #### [facility] [address] [place] [address] Metal Filer: Guido Jhaveri MD Cholesterol in HDL [Mass/Vol] 27 mg/dL Low >40 [facility] Comment on above: Result Comment: HDL Guidelines: <40 Undesirable 40-59 Borderline >59 Desirable Performed By: #### C P #### [facility] [address] [place], [place] [phone] Metal Filer: Tray Diaz MD #### GLYHGB #### [address] [address] Metal Filer: Guido Jhaveri MD Cholesterol in LDL [Mass/Vol] 44 mg/dL Normal 0-130 [facility] Comment on above: Result Comment: LDL Guidelines: <100 Desirable 100-129 Near to/above Desirable 130-159 Borderline >159 Undesirable Direct (measured) LDL and calculated LDL are not interchangeable tests. Performed By: #### C P #### [facility] [address] [place] [address] Dr. [place], [place] [phone] Metal Filer: Tray Diaz MD #### GLYHGB #### [address] [address] Metal Filer: Guido Jhaveri MD Cholesterol.total/Cho lesterol in HDL [Mass ratio] 3.3 {ratio} Normal <5 [facility] Comment on above: Performed By: #### C P #### [facility] [address] [place], [place] [phone] Metal Filer: Tray Diaz MD #### GLYHGB #### [address] [address] Metal Filer: Guido Jhaveri MD Triglyceride [Mass/Vol] 92 mg/dL Normal <150 [facility] Comment on above: Result Comment: Triglyceride Guidelines: <150 Desirable 150-199 Borderline 200-499 High >499 Very high Based on AHA Guidelines for fasting triglyceride, July 2012. Performed By: #### C P #### [facility] [address] [place] [address] Metal Filer: Tray Diaz MD #### GLYHGB #### [facility] [address] [place], [place] [phone] Metal Filer: Guido Jhaveri MD Valproic Acidon 10-24-2023 Valproic Acid <3 Low 50-125 [facility] Comment on above: Performed By: #### V ALPC, CBC, CPBILC #### [facility] [address] [place] [address] Metal Filer: Tray Diaz MD #### GLYHGB, LIPR #### [facility] [address] [place] [address] Metal Filer: Guido Jhaveri MD Glucose Glucometer (dC) [M ass/Vol]Ordered By: Blade Goel on 10-06-2023 Glucose [Mass/Vol] 99 mg/dL [facility] Comment on above: Random Glucose Refer ence Range is dependent on time and content of last meal. Glucose of more than 200 mg/dL in a nonstressed, ambulatory subject supports the diagnosis of Diabetes Mellitus. Glucose Poct Glucometerson 0 10-06-2023 Commemt1 Glu2: Cleaned Meter Normal [facility] Comment on above: Result Comment: PERF ORMED BY: [facility] [address] [place] [address] PATHOLOGIST [facility] TAMI ZHENG M.D. Performed By: #### G LULS #### Point of Care testing , Glucose [Mass/Vol] 99 mg/dL Normal [facility] Comment on above: Result Comment: [place] Glucose Reference Range is dependent on time and content of last meal. Glucose of more than 200 mg/dL in a nonstressed, ambulatory subject supports the diagnosis of Diabetes Mellitus. Performed By: #### G LULS #### Point of Care testing , No Panel InformationOrdered By: Blade Goel on 10-06-2023 Bedside Glucose Comment Glu2: cleaned meter [facility] Glucose Poct Glucometerson 0 10-05-2023 Glucose [Mass/Vol] 114 mg/dL Normal [facility] Comment on above: Result Comment: [place] om Glucose Reference Range is dependent on time and content of last meal. Glucose of more than 200 mg/dL in a nonstressed, ambulatory subject supports the diagnosis of Diabetes Mellitus. PERFORMED BY: [address] [place] [id number] PATHOLOGIST [facility] TAMI ZHENG M.D. Performed By: #### G LULS #### Point of Care testing , Glucose Poct Glucometerson 0 10-04-2023 Glucose [Mass/Vol] 114 mg/dL Normal [facility] Comment on above: Result Comment: [place] om Glucose Reference Range is dependent on time and content of last meal. Glucose of more than 200 mg/dL in a nonstressed, ambulatory subject supports the diagnosis of Diabetes Mellitus. PERFORMED BY: [place] [address] [place] [address] PATHOLOGIST [facility] TAMI ZHENG M.D. Performed By: #### G LULS #### Point of Care testing , A1C with Estimated Average G sophiabirgit 10-03-2023 Glucose [Mass/Vol] 123 mg/dL Normal [facility] Comment on above: Result Comment: PERF ORMED BY: [place] [address] [place] [address] PATHOLOGIST [facility] TAMI ZHENG M.D. Performed By: #### G LULS #### Point of Care testing , HbA1c (Bld) [Mass fraction] 5.9 % High 4.3-5.6 [facility] Comment on above: Result Comment: Incr eased risk for diabetes: 5.7 - 6.4 diabetes: >6.4 glycemic control for adults with diabetes: <7.0 Performed By: #### G LULS #### Point of Care testing , Alanine aminotransferase [En zymatic activity/volume] in Serum or PlasmaOrdered By: Blade Goel on 10-03-2023 ALT [Catalytic activity/Vol] 26 U/L 7-52 [facility] Albumin [Mass/volume] in Ser um or Plasma by Bromocresol green (BCG) dye binding methoOrdered By: Blade Goel on 10-03-2023 Albumin BCG dye [Mass/Vol] 4.1 g/dL 3.5-5.7 [facility] Alkaline phosphatase [Enzyma tic activity/volume] in Serum or PlasmaOrdered By: Blade Goel on 10-03-2023 ALP [Catalytic activity/Vol] 65 U/L 34-104 [facility] Aspartate aminotransferase [ Enzymatic activity/volume] in Serum or PlasmaOrdered By: Blade Goel on 10-03-2023 AST [Catalytic activity/Vol] 16 U/L 13-39 [facility] Basophils Auto (Bld) [#/Vol] Ordered By: Blade Goel on 10-03-2023 Basophils (Bld) [#/Vol] 0.1 10*3/uL 0.0-0.2 [facility] Basophils/100 WBC Auto (Bld) Ordered By: Blade Goel on 10-03-2023 Basophils/100 WBC (Bld) 0.9 % . [facility] Bilirubin.total [Mass/volume ] in Serum or PlasmaOrdered By: Blade Goel on 10-03-2023 Bilirubin [Mass/Vol] 0.3 mg/dL 0.3-1.0 [facility] Calcium [Mass/volume] in Ser um or PlasmaOrdered By: Blade Goel on 10-03-2023 Calcium [Mass/Vol] 8.6 mg/dL 8.6-10.3 [facility] Carbon dioxide, total [Moles /volume] in Serum or PlasmaOrdered By: Blade Goel on 10-03-2023 CO2 [Moles/Vol] 21.5 mmol/L 21.0-31.0 [facility] Chloride [Moles/volume] in S [place] or PlasmaOrdered By: Blade Goel on 10-03-2023 Chloride [Moles/Vol] 107 mmol/L 98-107 [facility] Cholesterol [Mass/volume] in Serum or PlasmaOrdered By: Blade Goel on 10-03-2023 Cholesterol [Mass/Vol] 100 mg/dL 140-200 [facility] Comment on above: Chol less than 200 m g/dl low riskChol 201-239 mg/dl borderline riskChol 240 mg/dl and greater high risk Cholesterol in LDL Calc [Mas s/Vol]Ordered By: Blade Goel on 10-03-2023 Cholesterol in LDL [Mass/Vol] 45 mg/dL 0-100 [facility] Comment on above: LDL ATP III CLASSIFI CATIONLDL less than 100 mg/dL OptimalLDL 100-129 mg/dL Near or above optimalLDL 130-159 mg/dL Borderline highLDL 160-189 mg/dL HighLDL greater than 189 mg/dL Very high Cholesterol in VLDL Calc [Ma ss/Vol]Ordered By: Blade Goel on 10-03-2023 Cholesterol in VLDL [Mass/Vol] 23 mg/dL [facility] Complete Blood Count Auto Di ffon 10-03-2023 Basophils (Bld) [#/Vol] 0.1 10*3/uL Normal 0.0-0.2 [facility] Comment on above: Result Comment: PERF ORMED BY: [place] [address] PATHOLOGIST [facility] TAMI ZHENG M.D. Performed By: #### R EDRAW VITD #### [facility] [address] [place] [address] [place] Basophils/100 WBC (Bld) 0.9 % Normal . [facility] Comment on above: Performed By: #### R EDRAW VITD #### [facility] [address] [place] [address] [place] Eosinophils (Bld) [#/Vol] 0.3 10*3/uL Normal 0.0-0.45 [facility] Comment on above: Performed By: #### R EDRAW VITD #### [facility] [address] [place] [address] [place] Eosinophils/100 WBC (Bld) 4.0 % Normal . [facility] Comment on above: Performed By: #### R EDRAW VITD #### [facility] [address] Erythrocyte distribution width (RBC) [Ratio] 13.7 % Normal 11.9-15.3 [facility] Comment on above: Performed By: #### R EDRAW VITD #### [address] Hematocrit (Bld) [Volume fraction] 40.7 % Normal 34.0-46.4 [facility] Comment on above: Performed By: #### R EDRAW VITD #### [address] Hemoglobin (Bld) [Mass/Vol] 13.6 g/dL Normal 11.8-15.4 [facility] Comment on above: Performed By: #### R EDRAW VITD #### [place] [address] [place] Lymphocytes (Bld) [#/Vol] 2.2 10*3/uL Normal 1.00-4.8 [facility] Comment on above: Performed By: #### R EDRAW VITD #### [place] [address] [place] Lymphocytes/100 WBC (Bld) 29.6 % Normal . [facility] Comment on above: Performed By: #### R EDRAW VITD #### [place] [address] [place] MCH (RBC) [Entitic mass] 27.4 pg Normal 24.7-34.3 [facility] Comment on above: Performed By: #### R EDRAW VITD #### [address] MCV (RBC) [Entitic vol] 82.2 fL Normal 80-100 [facility] Comment on above: Performed By: #### R EDRAW VITD #### [facility] [address] Mean Corpuscular HGB Conc 33.3 g/dL Normal 32.0-35.0 [facility] Comment on above: Performed By: #### R EDRAW VITD #### [facility] [address] Monocytes (Bld) [#/Vol] 0.8 10*3/uL Normal 0.0-0.8 [facility] Comment on above: Performed By: #### R EDRAW VITD #### [facility] [address] [place] [address] Monocytes/100 WBC (Bld) 11.0 % Normal . [facility] Comment on above: Performed By: #### R EDRAW VITD #### [facility] [address] [place] [address] Neutrophils (Bld) [#/Vol] 4.1 10*3/uL Normal 1.8-7.7 [facility] Comment on above: Performed By: #### R EDRAW VITD #### [facility] [address] [place] [address] Neutrophils/100 WBC (Bld) 54.5 % Normal . [facility] Comment on above: Performed By: #### R EDRAW VITD #### [facility] [address] [place] [address] NRBC% 0.1 /100{WBC} Normal 0-0.5 [facility] Comment on above: Performed By: #### R EDRAW VITD #### [facility] [address] [place] [address] [place] Platelet mean volume (Bld) [Entitic vol] 8.0 fL Normal 6.3-10.7 [facility] Comment on above: Performed By: #### R EDRAW VITD #### [facility] [address] [place] [address] [place] Platelets (Bld) [#/Vol] 227 10*3/uL Normal 150-450 [facility] Comment on above: Performed By: #### R EDRAW VITD #### [facility] [address] [place] [address] RBC (Bld) [#/Vol] 4.95 10*6/uL Normal 3.60-5.00 [facility] Comment on above: Performed By: #### R EDRAW VITD #### [facility] [address] [place] [address] WBC (Bld) [#/Vol] 7.5 10*3/uL Normal 3.8-11.6 [facility] Comment on above: Performed By: #### R EDRAW VITD #### [address] Comprehensive Metabolic Pane felipa 10-03-2023 Albumin [Mass/Vol] 4.1 g/dL Normal 3.5-5.7 [facility] Comment on above: Performed By: #### R EDRAW VITD #### [address] Albumin/Globulin [Mass ratio] 1.5 {ratio} Normal [facility] Comment on above: Performed By: #### R EDRAW VITD #### [address] ALP [Catalytic activity/Vol] 65 U/L Normal 34-104 [facility] Comment on above: Performed By: #### R EDRAW VITD #### [facility] [address] [place] [address] ALT [Catalytic activity/Vol] 26 U/L Normal 7-52 [facility] Comment on above: Performed By: #### R EDRAW VITD #### [facility] [address] [place] [address] Anion gap [Moles/Vol] 13.5 mmol/L Normal 6.0-15.0 [facility] Comment on above: Performed By: #### R EDRAW VITD #### [facility] [address] [place] [address] AST [Catalytic activity/Vol] 16 U/L Normal 13-39 [facility] Comment on above: Performed By: #### R EDRAW VITD #### [facility] [address] Bilirubin [Mass/Vol] 0.3 mg/dL Normal 0.3-1.0 [facility] Comment on above: Performed By: #### R EDRAW VITD #### [facility] [address] [place] [address] Calcium [Mass/Vol] 8.6 mg/dL Normal 8.6-10.3 [facility] Comment on above: Performed By: #### R EDRAW VITD #### [address] Chloride [Moles/Vol] 107 mmol/L Normal 98-107 [facility] Comment on above: Performed By: #### R EDRAW VITD #### [facility] [address] [place] [address] CO2 [Moles/Vol] 21.5 mmol/L Normal 21.0-31.0 [facility] Comment on above: Performed By: #### R EDRAW VITD #### [address] Creatinine [Mass/Vol] 0.79 mg/dL Normal 0.60-1.20 [facility] Comment on above: Performed By: #### R EDRAW VITD #### [facility] [address] [place] [address] [place] Creatinine Clr Calc Pharmacy 168.41 [facility] Comment on above: Performed By: #### R EDRAW VITD #### [facility] [address] [place] [address] [place] GFR/1.73 sq M.predicted MDRD (S/P/Bld) [Vol rate/Area] mL/min/{1.73_m2} [facility] Comment on above: Performed By: #### R EDRAW VITD #### [place] [address] [place] Globulin (S) [Mass/Vol] 2.7 g/dL Normal [facility] Comment on above: Performed By: #### R EDRAW VITD #### [address] Glucose [Mass/Vol] 108 mg/dL High 70-100 [facility] Comment on above: Result Comment: [facility] Glucose Reference Range is dependent on time and content of last meal. Glucose of more than 200 mg/dL in a nonstressed, ambulatory subject supports the diagnosis of Diabetes Mellitus. ADA recommended reference range Performed By: #### R EDRAW VITD #### [facility] [address] [place] [address] Potassium [Moles/Vol] 4.0 mmol/L Normal 3.5-5.1 [facility] Comment on above: Performed By: #### R EDRAW VITD #### [facility] [address] [place] [address] Protein [Mass/Vol] 6.8 g/dL Normal 6.4-8.9 [facility] Comment on above: Performed By: #### R EDRAW VITD #### [facility] [address] [place] [address] [place] Sodium [Moles/Vol] 138 mmol/L Normal 136-145 [facility] Comment on above: Performed By: #### R EDRAW VITD #### [facility] [address] [place] [address] [place] Urea nitrogen [Mass/Vol] 16 mg/dL Normal 7-25 [facility] Comment on above: Performed By: #### R EDRAW VITD #### [facility] [address] [place] [address] [place] Creatinine [Mass/volume] in Serum or PlasmaOrdered By: Blade Goel on 10-03-2023 Creatinine [Mass/Vol] 0.79 mg/dL 0.60-1.20 [facility] Eosinophils Auto (Bld) [#/Vo l]Ordered By: Blade Goel on 10-03-2023 Eosinophils (Bld) [#/Vol] 0.3 10*3/uL 0.0-0.45 [facility] Eosinophils/100 WBC Auto (Bl d)Ordered By: Blade Goel on 10-03-2023 Eosinophils/100 WBC (Bld) 4.0 % . [facility] Erythrocyte distribution wid th Auto (RBC) [Ratio]Ordered By: Blade Goel on 10-03-2023 Erythrocyte distribution width (RBC) [Ratio] 13.7 % 11.9-15.3 [facility] Globulin Calc (S) [Mass/Vol] Ordered By: Blade Goel on 10-03-2023 Globulin (S) [Mass/Vol] 2.7 g/dL [facility] Glucose Poct Glucometerson 0 10-03-2023 Glucose [Mass/Vol] 103 mg/dL Normal [facility] Comment on above: Result Comment: [place] Glucose Reference Range is dependent on time and content of last meal. Glucose of more than 200 mg/dL in a nonstressed, ambulatory subject supports the diagnosis of Diabetes Mellitus. PERFORMED BY: [address] [address] PATHOLOGIST [facility] TAMI ZHENG M.D. Performed By: #### G LULS #### Point of Care testing , Glucose [Mass/volume] in Ser um or PlasmaOrdered By: Blade Goel on 10-03-2023 Glucose [Mass/Vol] 108 mg/dL 70-100 [facility] Comment on above: ADA recommended refe rence rangeRandom Glucose Reference Range is dependent on time and content of last meal. Glucose of more than 200 mg/dL in a nonstressed, ambulatory subject supports the diagnosis of Diabetes Mellitus. Glucose mean value [Mass/vol ume] in Blood Estimated from glycated hemoglobinOrdered By: Blade Goel on 10-03-2023 Average glucose Estimated from glycated hemoglobin (Bld) [Mass/Vol] 123 mg/dL [facility] Hematocrit Auto (Bld) [Volum e fraction]Ordered By: Blade Goel on 10-03-2023 Hematocrit (Bld) [Volume fraction] 40.7 % 34.0-46.4 [facility] Hemoglobin A1c percentageOrd ered By: Blade Goel on 10-03-2023 HbA1c (Bld) [Mass fraction] 5.9 % 4.3-5.6 [facility] Comment on above: Increased risk for d iabetes: 5.7 - 6.4diabetes: >6.4glycemic control for adults with diabetes: <7.0 Hemoglobin [Mass/volume] in BloodOrdered By: Blade Goel on 10-03-2023 Hemoglobin (Bld) [Mass/Vol] 13.6 g/dL 11.8-15.4 [facility] Leukocytes [#/volume] correc anu for nucleated erythrocytes in Blood by Automated counOrdered By: Blade Goel on 10-03-2023 WBC corrected for nucl RBC Auto (Bld) [#/Vol] 7.5 10*3/uL 3.8-11.6 [facility] Lipid Panelon 10-03-2023 Cholesterol [Mass/Vol] 100 mg/dL Low 140-200 [facility] Comment on above: Result Comment: Chol less than 200 mg/dl low risk Chol 201-239 mg/dl borderline risk Chol 240 mg/dl and greater high risk Performed By: #### T SH3 wRFLX, [id number], LIPID #### [facility] [address] [place] [address] [place] Cholesterol in HDL [Mass/Vol] 32 mg/dL Normal 23-92 [facility] Comment on above: Result Comment: HDL CHOL ATP-III CLASSIFICATION Cardiovascular Risk HDL > or equal to 60 mg/dL LOW HDL < 40 mg/dL HIGH Performed By: #### T SH3 wRFLX, [id number], LIPID #### [facility] [address] [place] [id number] [facility] Cholesterol.total/Cho lesterol in HDL [Mass ratio] 3.1 {ratio} Normal <5.0 [facility] Comment on above: Performed By: #### T SH3 wRFLX, [id number], LIPID #### [facility] [address] LDL Cholesterol,Calculate d 45 mg/dL Normal 0-100 [facility] Comment on above: Result Comment: LDL ATP III CLASSIFICATION LDL less than 100 mg/dL Optimal LDL 100-129 mg/dL Near or above optimal LDL 130-159 mg/dL Borderline high LDL 160-189 mg/dL High LDL greater than 189 mg/dL Very high Performed By: #### T SH3 wRFLX, [id number], LIPID #### [facility] [address] Triglyceride w/Reflex 116 mg/dL Normal 0-149 [facility] Comment on above: Result Comment: TRIG ATP III CLASSIFICATION TRIG less than 150 mg/dL Normal TRIG 150-199 mg/dL Borderline high TRIG 200-500 mg/dL High TRIG greater than 500 mg/dL Very high Standard traceable to the Center for Disease Conrtrol and Prevention (CDC) test method. Performed By: #### T SH3 wRFLX, [id number], LIPID #### [facility] [address] VLDL CHOLESTEROL 23 mg/dL Normal [facility] Comment on above: Performed By: #### T SH3 wRFLX, [id number], LIPID #### [facility] [address] Lymphocytes Auto (Bld) [#/Vo l]Ordered By: Blade Goel on 10-03-2023 Lymphocytes (Bld) [#/Vol] 2.2 10*3/uL 1.00-4.8 [facility] Lymphocytes/100 WBC Auto (Bl d)Ordered By: Blade Goel on 10-03-2023 Lymphocytes/100 WBC (Bld) 29.6 % . [facility] MCH Auto (RBC) [Entitic mass ]Ordered By: Blade Goel on 10-03-2023 MCH (RBC) [Entitic mass] 27.4 pg 24.7-34.3 [facility] MCHC Auto (RBC) [Mass/Vol]Or dered By: Blade Goel on 10-03-2023 MCHC (RBC) [Mass/Vol] 33.3 g/dL 32.0-35.0 [facility] MCV Auto (RBC) [Entitic vol] Ordered By: Blade Goel on 10-03-2023 MCV (RBC) [Entitic vol] 82.2 fL 80-100 [facility] Monocytes Auto (Bld) [#/Vol] Ordered By: Blade Goel on 10-03-2023 Monocytes (Bld) [#/Vol] 0.8 10*3/uL 0.0-0.8 [facility] Monocytes/100 WBC Auto (Bld) Ordered By: Blade Goel on 10-03-2023 Monocytes/100 WBC (Bld) 11.0 % . [facility] Neutrophils Auto (Bld) [#/Vo l]Ordered By: Blade Goel on 10-03-2023 Neutrophils (Bld) [#/Vol] 4.1 10*3/uL 1.8-7.7 [facility] Neutrophils/100 WBC Auto (Bl d)Ordered By: Blade Goel on 10-03-2023 Neutrophils/100 WBC (Bld) 54.5 % . [facility] No Panel InformationOrdered By: Blade Goel on 10-03-2023 Estimated GFR (CKD-EPI) > 60.0 mL/Min [facility] Creatinine Clearance (Chem 168.41 [facility] Nucleated erythrocytes [Pres ence] in Blood by Automated countOrdered By: Blade Goel on 10-03-2023 Nucleated RBC Auto Ql (Bld) 0.1 /100{WBC} 0-0.5 [facility] Platelet mean volume Auto (B ld) [Entitic vol]Ordered By: Blade Goel on 10-03-2023 Platelet mean volume (Bld) [Entitic vol] 8.0 fL 6.3-10.7 [facility] Platelets Auto (Bld) [#/Vol] Ordered By: Blade Goel on 10-03-2023 Platelets (Bld) [#/Vol] 227 10*3/uL 150-450 [facility] Potassium [Moles/volume] in Serum or PlasmaOrdered By: Blade Goel on 10-03-2023 Potassium [Moles/Vol] 4.0 mmol/L 3.5-5.1 [facility] Prolactinon 10-03-2023 Prolactin 28.55 ng/mL High 3.34-26.72 [facility] Comment on above: Result Comment: PERF ORMED BY: [facility] [address] [place] [address] PATHOLOGIST [facility] TAMI ZHENG M.D. Performed By: #### R EDRAW VITD #### [address] Prolactin [Mass/volume] in [place] or PlasmaOrdered By: Blade Goel on 10-03-2023 Prolactin [Mass/Vol] 28.55 ng/mL 3.34-26.72 [facility] Protein [Mass/volume] in Ser um or PlasmaOrdered By: Blade Goel on 10-03-2023 Protein [Mass/Vol] 6.8 g/dL 6.4-8.9 [facility] RBC Auto (Bld) [#/Vol]Ordere d By: Blade Goel on 10-03-2023 RBC (Bld) [#/Vol] 4.95 10*6/uL 3.60-5.00 [facility] Serum or plasma albumin/glob ulin mass ratioOrdered By: Blade Goel on 10-03-2023 Albumin/Globulin [Mass ratio] 1.5 {ratio} [facility] Serum or plasma anion gap de terminationOrdered By: Blade Goel on 10-03-2023 Anion gap [Moles/Vol] 13.5 mmol/L 6.0-15.0 [facility] Serum or plasma high density lipoprotein (HDL) cholesterol measurementOrdered By: Blade Goel on 10-03-2023 Cholesterol in HDL [Mass/Vol] 32 mg/dL 23-92 [facility] Comment on above: HDL CHOL ATP-III CLA SSIFICATION Cardiovascular RiskHDL > or equal to 60 mg/dL LOWHDL < 40 mg/dL HIGH Serum or plasma total choles terol/high density lipoprotein (HDL) cholesterol mass ratOrdered By: Blade Goel on 10-03-2023 Cholesterol.total/Cho lesterol in HDL [Mass ratio] 3.1 {ratio} <5.0 [facility] Sodium [Moles/volume] in Ser um or PlasmaOrdered By: Blade Goel on 10-03-2023 Sodium [Moles/Vol] 138 mmol/L 136-145 [facility] Thyroid Stim Hormone w/Rflxo n 10-03-2023 Thyroid Stim Hormone w/Rflx 3.33 u[iU]/mL Normal 0.45-5.33 [facility] Comment on above: Performed By: #### T SH3 wRFLX, [id number], LIPID #### [address] Thyrotropin [Units/volume] i n Serum or PlasmaOrdered By: Blade Goel on 10-03-2023 TSH Qn 3.33 m[IU]/L 0.45-5.33 [facility] Triglyceride [Mass/volume] i n Serum or PlasmaOrdered By: Blade Goel on 10-03-2023 Triglyceride [Mass/Vol] 116 mg/dL 0-149 [facility] Comment on above: TRIG ATP III CLASSIF ICATIONTRIG less than 150 mg/dL NormalTRIG 150-199 mg/dL Borderline highTRIG 200-500 mg/dL High TRIG greater than 500 mg/dL Very highStandard traceable to the Center for Disease Conrtrol and Prevention (CDC) test method. Urea nitrogen [Mass/volume] in Serum or PlasmaOrdered By: Blade Goel on 10-03-2023 Urea nitrogen [Mass/Vol] 16 mg/dL 7-25 [facility] Vitamin D 25 Hydroxy Totalon 01-03-2024 Vitamin D 25 Hydroxy Total 24.5 ng/mL Low 30-100 [facility] Comment on above: Result Comment: INOCENTE MIN D STATUS 25(OH)VITAMIN D RANGE (ng/mL) Deficient <20 Insufficient 20 to <30 Sufficient 30 to 100 Reference: Emi Harden, Kathy GIBSON, et al. Evaluation,treatment, and prevention of vitamin D deficiency; an Endocrine Society clinical practice guideline. JCEM. 2010; 96(7):1911-. PERFORMED BY: [place] [address] PATHOLOGIST [facility] TAMI ZHENG M.D. Performed By: #### R EDRAW VITD #### [address] Vitamin D+Metabolites [Mass/ volume] in Serum or PlasmaOrdered By: Blade Goel on 10-03-2023 Vitamin D+Metabolites [Mass/Vol] 24.5 ng/mL 30-100 [facility] Comment on above: VITAMIN D STATUS 25( [place])VITAMIN D RANGE (ng/mL) Deficient <20 Insufficient 20 to <30Sufficient 30 to 100Reference: Emi Harden, Kathy GIBSON, et al. Evaluation,treatment, and prevention of vitamin D deficiency; an Endocrine Society clinical practice guideline. JCEM. 2010; 96(7):1911-30. WBC Auto (Bld) [#/Vol]Ordere d By: Blade Goel on 10-03-2023 WBC (Bld) [#/Vol] 7.5 10*3/uL 3.8-11.6 [facility] Thyroid Stim. Horm.on 2022 Thyroid Stim. Horm. 1.63 uIU/mL Normal 0.30-5.00 [facility] Comment on above: Performed By: #### T SH #### [facility] [address] [place] [address] Metal Filer: Tray Diaz MD Glucose Glucometer (BldC) [M ass/Vol]Ordered By: Blade Goel on 07-16-2023 Glucose [Mass/Vol] 121 mg/dL [facility] Comment on above: Random Glucose Refer ence Range is dependent on time and content of last meal. Glucose of more than 200 mg/dL in a nonstressed, ambulatory subject supports the diagnosis of Diabetes Mellitus. Glucose Poct Glucometerson 1 Commemt1 Glu2: Cleaned Meter [facility] Comment on above: Result Comment: PERF ORMED BY: [place] [address] PATHOLOGIST [facility] TAMI ZHENG M.D. Performed By: #### R EDRAAbdirahman VITD #### [facility] [address] [place] [address] Glucose [Mass/Vol] 121 mg/dL Normal [facility] Comment on above: Result Comment: [place] om Glucose Reference Range is dependent on time and content of last meal. Glucose of more than 200 mg/dL in a nonstressed, ambulatory subject supports the diagnosis of Diabetes Mellitus. Performed By: #### R EDRAW VITD #### [facility] [address] [place] [address] No Panel InformationOrdered By: Blade Goel on 07-16-2023 Bedside Glucose Comment Glu2: cleaned meter [facility] Glucose Poct Glucometerson 1 Commemt1 Glu2: Cleaned Meter [facility] Comment on above: Result Comment: PERF ORMED BY: [place] [address] PATHOLOGIST [facility] TAMI ZHENG M.D. Performed By: #### G LULS #### Point of Care testing , Glucose [Mass/Vol] 113 mg/dL Normal [facility] Comment on above: Result Comment: [place] om Glucose Reference Range is dependent on time and content of last meal. Glucose of more than 200 mg/dL in a nonstressed, ambulatory subject supports the diagnosis of Diabetes Mellitus. Performed By: #### G LULS #### Point of Care testing , Glucose Poct Glucometerson 1 Commemt1 Glu2: Cleaned Meter Normal [facility] Comment on above: Result Comment: PERF ORMED BY: [address] [place] [address] PATHOLOGIST [facility] TAMI ZHENG M.D. Performed By: #### R EDZACH VITD #### [address] Glucose [Mass/Vol] 143 mg/dL Normal [facility] Comment on above: Result Comment: [facility] Glucose Reference Range is dependent on time and content of last meal. Glucose of more than 200 mg/dL in a nonstressed, ambulatory subject supports the diagnosis of Diabetes Mellitus. Performed By: #### R EDZACH VITD #### [address] Glucose Poct Glucometerson 1 Glucose [Mass/Vol] 108 mg/dL Normal [facility] Comment on above: Result Comment: [facility] Glucose Reference Range is dependent on time and content of last meal. Glucose of more than 200 mg/dL in a nonstressed, ambulatory subject supports the diagnosis of Diabetes Mellitus. PERFORMED BY: [address] [place] [address] PATHOLOGIST [facility] TAMI ZHENG M.D. Performed By: #### G JUAN DAVID #### Point of Care testing , A1C with Estimated Average Cristhian renita 07-12-2023 Glucose [Mass/Vol] 126 mg/dL Normal [facility] Comment on above: Result Comment: PERF ORMED BY: [facility] [address] [place] [address] PATHOLOGIST [facility] TAMI ZHENG M.D. Performed By: #### R EDZACH VITD #### [place] [id number] [facility] HbA1c (Bld) [Mass fraction] 6.0 % High 4.3-5.6 [facility] Comment on above: Result Comment: Incr eased risk for diabetes: 5.7 - 6.4 diabetes: >6.4 glycemic control for adults with diabetes: <7.0 Performed By: #### R EDZACH VITD #### [address] Cholesterol [Mass/volume] in Serum or PlasmaOrdered By: Blade Goel on 07-12-2023 Cholesterol [Mass/Vol] 111 mg/dL 140-200 [facility] Comment on above: Chol less than 200 m g/dl low riskChol 201-239 mg/dl borderline riskChol 240 mg/dl and greater high risk Cholesterol in LDL Calc [Mas s/Vol]Ordered By: Blade Goel on 07-12-2023 Cholesterol in LDL [Mass/Vol] 50 mg/dL 0-100 [facility] Comment on above: LDL ATP III CLASSIFI CATIONLDL less than 100 mg/dL OptimalLDL 100-129 mg/dL Near or above optimalLDL 130-159 mg/dL Borderline highLDL 160-189 mg/dL HighLDL greater than 189 mg/dL Very high Cholesterol in VLDL Calc [Ma ss/Vol]Ordered By: Blade Goel on 07-12-2023 Cholesterol in VLDL [Mass/Vol] 25 mg/dL [facility] ECG 12 lead ECGon 07-12-2023 ECG 12 lead ECG [facility] [address] [place] [address] Electrocardiograph Report Signed Patient: Cris Magana MR#: [id number] : 2000 Acct:[id number] Age/Sex: 23 / F ADM Date: 07/11/23 Loc: Room: [address] [place] [address] Type: ADM IN Attending Dr: Blade Goel [...] Signed By Josafat Sanders DO 07/12 1710 Normal [facility] Glucose Poct Glucometerson 1 Commemt1 Glu2: Cleaned Meter Normal [facility] Comment on above: Result Comment: PERF ORMED BY: [facility] [address] [place] [address] PATHOLOGIST [facility] TAMI ZHENG M.D. Performed By: #### G LULS #### Point of Care testing , Glucose [Mass/Vol] 126 mg/dL Normal [facility] Comment on above: Result Comment: [place] Glucose Reference Range is dependent on time and content of last meal. Glucose of more than 200 mg/dL in a nonstressed, ambulatory subject supports the diagnosis of Diabetes Mellitus. Performed By: #### G LULS #### Point of Care testing , Glucose mean value [Mass/vol ume] in Blood Estimated from glycated hemoglobinOrdered By: Blade Goel on 07-12-2023 Average glucose Estimated from glycated hemoglobin (Bld) [Mass/Vol] 126 mg/dL [facility] Hemoglobin A1c percentageOrd ered By: Blade Goel on 07-12-2023 HbA1c (Bld) [Mass fraction] 6.0 % 4.3-5.6 [facility] Comment on above: Increased risk for d iabetes: 5.7 - 6.4diabetes: >6.4glycemic control for adults with diabetes: <7.0 Lipid Panelon 07-12-2023 Cholesterol [Mass/Vol] 111 mg/dL Low 140-200 [facility] Comment on above: Result Comment: Chol less than 200 mg/dl low risk Chol 201-239 mg/dl borderline risk Chol 240 mg/dl and greater high risk Performed By: #### R EDRAW VITD #### [facility] [address] [place] [id number] [place] Cholesterol in HDL [Mass/Vol] 36 mg/dL Normal 23-92 [facility] Comment on above: Result Comment: HDL CHOL ATP-III CLASSIFICATION Cardiovascular Risk HDL > or equal to 60 mg/dL LOW HDL < 40 mg/dL HIGH Performed By: #### R EDRAW VITD #### [facility] [address] [place] [address] [place] Cholesterol.total/Cho lesterol in HDL [Mass ratio] 3.1 {ratio} Normal <5.0 [facility] Comment on above: Performed By: #### R EDRAW VITD #### [facility] [address] LDL Cholesterol,Calculate d 50 mg/dL Normal 0-100 [facility] Comment on above: Result Comment: LDL ATP III CLASSIFICATION LDL less than 100 mg/dL Optimal LDL 100-129 mg/dL Near or above optimal LDL 130-159 mg/dL Borderline high LDL 160-189 mg/dL High LDL greater than 189 mg/dL Very high Performed By: #### R EDRAW VITD #### [facility] [address] Triglyceride w/Reflex 125 mg/dL Normal 0-149 [facility] Comment on above: Result Comment: TRIG ATP III CLASSIFICATION TRIG less than 150 mg/dL Normal TRIG 150-199 mg/dL Borderline high TRIG 200-500 mg/dL High TRIG greater than 500 mg/dL Very high Standard traceable to the Center for Disease Conrtrol and Prevention (CDC) test method. Performed By: #### R EDRAW VITD #### [facility] [address] [place] [id number] [facility] VLDL CHOLESTEROL 25 mg/dL Normal [facility] Comment on above: Performed By: #### R EDRAW VITD #### [facility] [address] [place] [id number] [facility] Redraw Vitamin D 25OHon 10- Redraw Vitamin D 25OH 29.3 ng/mL Low 30-100 [facility] Comment on above: Order Comment: 1ST S pecimen hemolyzed, redraw requested Result Comment: INOCENTE MIN D STATUS 25(OH)VITAMIN D RANGE (ng/mL) Deficient <20 Insufficient 20 to <30 Sufficient 30 to 100 Reference: Mariam MF,Emi SEPULVEDA, Kathy GIBSON, et al. Evaluation,treatment, and prevention of vitamin D deficiency; an Endocrine Society clinical practice guideline. JCEM. 2010; 96(7):1911-30. PERFORMED BY: [place] [address] PATHOLOGIST [facility] TAMI ZHENG M.D. Performed By: #### R EDZACH VITD #### [address] Serum or plasma high density lipoprotein (HDL) cholesterol measurementOrdered By: Blade Goel on 07-12-2023 Cholesterol in HDL [Mass/Vol] 36 mg/dL 23-92 [facility] Comment on above: HDL CHOL ATP-III CLA SSIFICATION Cardiovascular RiskHDL > or equal to 60 mg/dL LOWHDL < 40 mg/dL HIGH Serum or plasma total choles terol/high density lipoprotein (HDL) cholesterol mass ratOrdered By: Blade Goel on 07-12-2023 Cholesterol.total/Cho lesterol in HDL [Mass ratio] 3.1 {ratio} <5.0 [facility] Thyroid Stim Hormone w/Rflxo n 07-12-2023 Thyroid Stim Hormone w/Rflx 4.29 u[iU]/mL Normal 0.45-5.33 [facility] Comment on above: Performed By: #### R ASHTYN VITD #### [facility] [address] [place] [address] Thyrotropin [Units/volume] i n Serum or PlasmaOrdered By: Blade Goel on 07-12-2023 TSH Qn 4.29 m[IU]/L 0.45-5.33 [facility] Triglyceride [Mass/volume] i n Serum or PlasmaOrdered By: Blade Goel on 07-12-2023 Triglyceride [Mass/Vol] 125 mg/dL 0-149 [facility] Comment on above: TRIG ATP III CLASSIF ICATIONTRIG less than 150 mg/dL NormalTRIG 150-199 mg/dL Borderline highTRIG 200-500 mg/dL High TRIG greater than 500 mg/dL Very highStandard traceable to the Center for Disease Conrtrol and Prevention (CDC) test method. Vitamin D 25 Hydroxy Totalon 07-12-2023 Vitamin D 25 Hydroxy Total Normal 30-100 [facility] Comment on above: Result Comment: Spec imen hemolyzed, redraw requested VITAMIN D STATUS 25(OH)VITAMIN D RANGE (ng/mL) Deficient <20 Insufficient 20 to <30 Sufficient 30 to 100 Reference: mEi Haredn, Kathy GIBSON, et al. Evaluation,treatment, and prevention of vitamin D deficiency; an Endocrine Society clinical practice guideline. JCEM. 2010; 96(7):1911-. PERFORMED BY: [place] [address] PATHOLOGIST [facility] TAMI ZHENG M.D. Performed By: #### R EDRAW VITD #### [address] Vitamin D+Metabolites [Mass/ volume] in Serum or PlasmaOrdered By: Blade Goel on 07-12-2023 Vitamin D+Metabolites [Mass/Vol] 29.3 ng/mL 30-100 [facility] Comment on above: VITAMIN D STATUS 25( [place])VITAMIN D RANGE (ng/mL) Deficient <20 Insufficient 20 to <30Sufficient 30 to 100Reference: Emi Harden, Kathy GIBSON, et al. Evaluation,treatment, and prevention of vitamin D deficiency; an Endocrine Society clinical practice guideline. JCEM. 2010; 96(7):1911-30. Cholesterol [Mass/volume] in Serum or PlasmaOrdered By: Arben Webber on 06-19-2023 Cholesterol [Mass/Vol] 113 mg/dL Low 140-200 [facility] Comment on above: Chol less than 200 m g/dl low riskChol 201-239 mg/dl borderline riskChol 240 mg/dl and greater high risk Result Comment: Chol less than 200 mg/dl low risk Chol 201-239 mg/dl borderline risk Chol 240 mg/dl and greater high risk Performed By: #### T SH3 wRFLX, LIPID, [id number] #### [facility] [address] Cholesterol in LDL Calc [Mas s/Vol]Ordered By: Arben Webber on 06-19-2023 Cholesterol in LDL [Mass/Vol] 56 mg/dL 0-100 [facility] Comment on above: LDL ATP III CLASSIFI CATIONLDL less than 100 mg/dL OptimalLDL 100-129 mg/dL Near or above optimalLDL 130-159 mg/dL Borderline highLDL 160-189 mg/dL HighLDL greater than 189 mg/dL Very high Cholesterol in VLDL Calc [Ma ss/Vol]Ordered By: Arben Webber on 06-19-2023 Cholesterol in VLDL [Mass/Vol] 28 mg/dL [facility] Lipid Panelon 06-19-2023 LDL Cholesterol,Calculate d 56 mg/dL Normal 0-100 [facility] Comment on above: Result Comment: LDL ATP III CLASSIFICATION LDL less than 100 mg/dL Optimal LDL 100-129 mg/dL Near or above optimal LDL 130-159 mg/dL Borderline high LDL 160-189 mg/dL High LDL greater than 189 mg/dL Very high Performed By: #### T SH3 wRFLX, LIPID, [id number] #### [facility] [address] Triglyceride w/Reflex 141 mg/dL Normal 0-149 [facility] Comment on above: Result Comment: TRIG ATP III CLASSIFICATION TRIG less than 150 mg/dL Normal TRIG 150-199 mg/dL Borderline high TRIG 200-500 mg/dL High TRIG greater than 500 mg/dL Very high Standard traceable to the Center for Disease Conrtrol and Prevention (CDC) test method. Performed By: #### T SH3 wRFLX, LIPID, [id number] #### [facility] [address] VLDL CHOLESTEROL 28 mg/dL Normal [facility] [facility] Comment on above: Performed By: #### T SH3 wRFLX, LIPID, [id number] #### [facility] [address] [place] [address] Serum or plasma high density lipoprotein (HDL) cholesterol measurementOrdered By: Arben Webber on 06-19-2023 Cholesterol in HDL [Mass/Vol] 29 mg/dL Normal 23-92 [facility] Comment on above: HDL CHOL ATP-III CLA SSIFICATION Cardiovascular RiskHDL > or equal to 60 mg/dL LOWHDL < 40 mg/dL HIGH Result Comment: HDL CHOL ATP-III CLASSIFICATION Cardiovascular Risk HDL > or equal to 60 mg/dL LOW HDL < 40 mg/dL HIGH Performed By: #### T SH3 wRFLX, LIPID, [id number] #### [facility] [address] [place] [address] Serum or plasma total choles terol/high density lipoprotein (HDL) cholesterol mass ratOrdered By: Arben Webber on 06-19-2023 Cholesterol.total/Cho lesterol in HDL [Mass ratio] 3.9 {ratio} Normal <5.0 [facility] Comment on above: Performed By: #### T SH3 wRFLX, LIPID, [id number] #### [facility] [address] [place] [address] Thyroid Stim Hormone w/Rflxo n 06-19-2023 Thyroid Stim Hormone w/Rflx 1.41 u[iU]/mL Normal 0.45-5.33 [facility] Comment on above: Performed By: #### T SH3 wRFLX, LIPID, [id number] #### [facility] [address] [place] [address] Thyrotropin [Units/volume] i n Serum or PlasmaOrdered By: Arben Webber on 06-19-2023 TSH Qn 1.41 m[IU]/L 0.45-5.33 [facility] Triglyceride [Mass/volume] i n Serum or PlasmaOrdered By: Arben Webber on 06-19-2023 Triglyceride [Mass/Vol] 141 mg/dL 0-149 [facility] Comment on above: TRIG ATP III CLASSIF ICATIONTRIG less than 150 mg/dL NormalTRIG 150-199 mg/dL Borderline highTRIG 200-500 mg/dL High TRIG greater than 500 mg/dL Very highStandard traceable to the Center for Disease Conrtrol and Prevention (CDC) test method. Vitamin D 25 Hydroxy Totalon 06-19-2023 Vitamin D 25 Hydroxy Total 30.5 ng/mL Normal 30-100 [facility] Comment on above: Result Comment: INOCENTE MIN D STATUS 25(OH)VITAMIN D RANGE (ng/mL) Deficient <20 Insufficient 20 to <30 Sufficient 30 to 100 Reference: Emi Harden Bischoff-Ferrari HA et al. Evaluation,treatment, and prevention of vitamin D deficiency; an Endocrine Society clinical practice guideline. JCEM. 2010; 96(7):1911-. PERFORMED BY: [place] [address] PATHOLOGIST [facility] TAMI ZHENG M.D. Performed By: #### T SH3 wRFLX, LIPID, [id number] #### [address] Vitamin D+Metabolites [Mass/ volume] in Serum or PlasmaOrdered By: Arben Webber on 06-19-2023 Vitamin D+Metabolites [Mass/Vol] 30.5 ng/mL 30-100 [facility] Comment on above: VITAMIN D STATUS 25( OH)VITAMIN D RANGE (ng/mL) Deficient <20 Insufficient 20 to <30Sufficient 30 to 100Reference: Emi Harden Bischoff-Ferrari HA, et al. Evaluation,treatment, and prevention of vitamin D deficiency; an Endocrine Society clinical practice guideline. JCEM. 2010; 96(7):1911-30. ECG 12 lead ECGon 06-18-2023 ECG 12 lead ECG [facility] [address] [place] [address] Electrocardiograph Report Signed Patient: Cris Magana MR#: [id number] : 2000 Acct:[id number] Age/Sex: 23 / F ADM Date: 06/18/23 Loc: Room: [address] [place] [address] Type: ADM IN Attending Dr: Arben Webber [...] previous ECGs available Confirmed by SHAINA MEDINA [facility], ADDY ([id number]) on 06/18/2023 6:07:43 PM Referred By: Electronically Signed By:ADDY MERRITT MD [facility] Transcribed By: MUS Signed By Addy Merritt MD, [facility] 06/18/23 1807 Normal [facility] Glucose Glucometer (BldC) [M ass/Vol]Ordered By: Arben Webber on 06-18-2023 Glucose [Mass/Vol] 105 mg/dL [facility] Comment on above: Random Glucose Refer ence Range is dependent on time and content of last meal. Glucose of more than 200 mg/dL in a nonstressed, ambulatory subject supports the diagnosis of Diabetes Mellitus. Glucose Poct Glucometerson 0 06-18-2023 Glucose [Mass/Vol] 105 mg/dL Normal [facility] Comment on above: Result Comment: [place] om Glucose Reference Range is dependent on time and content of last meal. Glucose of more than 200 mg/dL in a nonstressed, ambulatory subject supports the diagnosis of Diabetes Mellitus. PERFORMED BY: [facility] [address] [place] [address] PATHOLOGIST [facility] TAMI ZHENG M.D. Performed By: #### G LULS #### Point of Care testing , Comp Metabolic Profon 2022 Albumin [Mass/Vol] 4.1 g/dL Normal 3.5-5.2 [facility] Comment on above: Performed By: #### C P #### [facility] [address] [place] [address] Metal Filer: Tray Diaz MD #### GLYHGB #### [facility] [address] [place] [address] Metal Filer: Guido Jhaveri MD Albumin/Glob Ratio 1.3 Normal 1.0-2.5 [facility] Comment on above: Performed By: #### C P #### [facility] [address] [place] [address] Metal Filer: Tray Diaz MD #### GLYHGB #### [address] [address] Metal Filer: Guido Jhaveri MD Alkaline Phos 77 U/L Normal 35-104 [facility] Comment on above: Performed By: #### C P #### [address] [place] [address] Metal Filer: Tray Diaz MD #### GLYHGB #### [address] [address] Metal Filer: Guido Jhaveri MD ALT [Catalytic activity/Vol] 23 U/L Normal 5-33 [facility] Comment on above: Performed By: #### C P #### [address] [place] [place] [address] Metal Filer: Tray Diaz MD #### GLYHGB #### [address] [address] Metal Filer: Guido Jhaveri MD Anion gap [Moles/Vol] 12 mmol/L Normal 9-17 [facility] Comment on above: Performed By: #### C P #### [facility] [address] [place] [address] Metal Filer: Tray Diaz MD #### GLYHGB #### [address] [address] Metal Filer: Guido Jhaveri MD AST [Catalytic activity/Vol] 17 U/L Normal <32 [facility] Comment on above: Performed By: #### C P #### [facility] [address] [place], [place] 8331983 Metal Filer: Tray Diaz MD #### GLYHGB #### [facility] [address] [place] [address] Metal Filer: Guido Jhaveri MD Bilirubin [Mass/Vol] 0.3 mg/dL Normal 0.3-1.2 [facility] Comment on above: Performed By: #### C P #### [facility] [address] [place], [place] [id number] Metal Filer: Tray Diaz MD #### GLYHGB #### [address] [address] Metal Filer: Guido Jhaveri MD BUN/CRE Ratio 14 Normal 9-20 [facility] Comment on above: Performed By: #### C P #### [facility] [address] [place] [address] [place] [place], [place] [id number] Metal Filer: Tray Diaz MD #### GLYHGB #### [address] [address] Metal Filer: Guido Jhaveri MD Calcium [Mass/Vol] 9.2 mg/dL Normal 8.6-10.4 [facility] Comment on above: Performed By: #### C P #### [address] [place] [address] Metal Filer: Tray Diaz MD #### GLYHGB #### [address] [address] Metal Filer: Guido Jhaveri MD Chloride [Moles/Vol] 103 mmol/L Normal 98-107 [facility] Comment on above: Performed By: #### C P #### [address] [place], [place] [id number] Metal Filer: Tray Diaz MD #### GLYHGB #### [facility] [address] [place], [place] [id number] Metal Filer: Guido Jhaveri MD CO2 [Moles/Vol] 23 mmol/L Normal 20-31 [facility] Comment on above: Performed By: #### C P #### [facility] [address] [place], [place] 4549083 Metal Filer: Tray Diaz MD #### GLYHGB #### [address] [place] [address] Metal Filer: Guido Jhaveri MD Creatinine [Mass/Vol] 0.8 mg/dL Normal 0.5-0.9 [facility] Comment on above: Performed By: #### C P #### [address] [place] [address] Metal Filer: Tray Diaz MD #### GLYHGB #### [address] [address] Metal Filer: Guido Jhaveri MD GFR/1.73 sq M.predicted among non-blacks MDRD (S/P/Bld) [Vol rate/Area] mL/min/{1.73_m2} Normal >60 [facility] Comment on above: Result Comment: These [...] secretion. Performed By: #### C P #### [facility] [address] [place] [phone] Metal Filer: Tray Diaz MD #### GLYHGB #### [address] [address] Metal Filer: Guido Jhaveri MD Glucose [Mass/Vol] 105 mg/dL High 70-99 [facility] Comment on above: Performed By: #### C P #### [facility] [address] [place], [place] 1224083 Metal Filer: Tray Diaz MD #### GLYHGB #### [address] [address] Metal Filer: Guido Jhaveri MD Potassium [Moles/Vol] 3.8 mmol/L Normal 3.7-5.3 [facility] Comment on above: Performed By: #### C P #### [facility] [address] [place] [address] Dr. [place], [place] [phone] Metal Filer: Tray Diaz MD #### GLYHGB #### [address] [address] Metal Filer: Guido Jhaveri MD Protein [Mass/Vol] 7.3 g/dL Normal 6.4-8.3 [facility] Comment on above: Performed By: #### C P #### [facility] [address] [place] [address] [place], [place] 1009883 Metal Filer: Tray Diaz MD #### GLYHGB #### [address] [address] Metal Filer: Guido Jhaveri MD Sodium [Moles/Vol] 138 mmol/L Normal 135-144 [facility] Comment on above: Performed By: #### C P #### [facility] [address] [place], [place] 5382283 Metal Filer: Tray Diaz MD #### GLYHGB #### [address] [address] Metal Filer: Guido Jhaveri MD Urea nitrogen [Mass/Vol] 11 mg/dL Normal 6-20 [facility] Comment on above: Performed By: #### C P #### [facility] [address] [place] [address] Metal Filer: Tray Diaz MD #### GLYHGB #### [facility] [address] [place], [place] [id number] Metal Filer: Guido Jhaveri MD [facility] Metabolic [facility] 06-13-2023 Albumin [Mass/Vol] 4.1 g/dL 3.5 - 5.2 g/dL [facility] Albumin/Globulin [Mass ratio] 1.3 {ratio} 1.0 - 2.[address] [facility] ALP [Catalytic activity/Vol] 77 U/L 35 - 104 U/L [facility] ALT [Catalytic activity/Vol] 23 U/L 5 - 33 U/L [facility] Anion gap [Moles/Vol] 12 mmol/L 9 - 17 mmol/L [facility] AST [Catalytic activity/Vol] 17 U/L NINF - 32 U/L [facility] Bilirubin [Mass/Vol] 0.3 mg/dL 0.3 - 1 .2 mg/dL [facility] Calcium [Mass/Vol] 9.2 mg/dL 8.6 - 10. 4 mg/dL [facility] Chloride [Moles/Vol] 103 mmol/L 98 - 10 7 mmol/L [facility] CO2 [Moles/Vol] 23 mmol/L 20 - 31 mmol/L [facility] Creatinine [Mass/Vol] 0.8 mg/dL 0.5 - 0.9 mg/dL [facility] GFR/1.73 sq M.predicted MDRD (S/P/Bld) [Vol rate/Area] - PINF [facility] Comment on above: These results are not [...] 105 mg/dL High 70 - 99 mg/dL [facility] Interpretation and review of laboratory results Abnormal [facility] Potassium [Moles/Vol] 3.8 mmol/L 3.7 - 5.3 mmol/L [facility] Protein [Mass/Vol] 7.3 g/dL 6.4 - 8.3 g/dL [facility] Sodium [Moles/Vol] 138 mmol/L 135 - 144 mmol/L [facility] Urea nitrogen [Mass/Vol] 11 mg/dL 6 - 20 mg/dL [facility] Urea nitrogen/Creatinine [Mass ratio] 14 mg/mg 9 - 20 [facility] Hemoglobin A1Con 06-13-2023 Glucose [Mass/Vol] 123 mg/dL Normal [facility] Comment on above: Result Comment: The ADA and AACC recommend providing the estimated average glucose result to permit better patient understanding of their HBA1c result. Performed By: #### C P #### [facility] [address] [place] [address] Dr[place] [id number] Metal Filer: Tray Diaz MD #### GLYHGB #### [facility] [address] [place] [address] [id number] Metal Filer: Guido Jhaveri MD HbA1c (Bld) [Mass fraction] 5.9 % Normal 4.0-6.0 [facility] Comment on above: Performed By: #### C P #### [facility] [address] [place] [address] Dr. [place] [phone] Metal Filer: Tray Diaz MD #### GLYHGB #### [facility] [place] [address] Metal Filer: Guido Jhaveri MD Average glucose Estimated from glycated hemoglobin (Bld) [Mass/Vol] 123 mg/dL [facility] Comment on above: The ADA and AACC rec ommend providing the estimated average glucose result to permit better patient understanding of their HBA1c result. HbA1c (Bld) [Mass fraction] 5.9 % 4.0 - 6.0 % [facility] CBCon 04-12-2023 Erythrocyte distribution width (RBC) [Ratio] 12.8 % Normal 11.8-14.4 [facility] Comment on above: Performed By: #### C P #### [facility] [address] [place] [address] Metal Filer: Tray Diaz MD #### GLYHGB #### [address] [id number] Metal Filer: Guido Jhaveri MD Hematocrit (Bld) [Volume fraction] 44.2 % Normal 36.3-47.1 [facility] Comment on above: Performed By: #### C P #### [facility] [address] [place] [address] Metal Filer: Tray Diaz MD #### GLYHGB #### [place] [place], [place] [id number] Metal Filer: Guido Jhaveri MD Hemoglobin (Bld) [Mass/Vol] 14.8 g/dL Normal 11.9-15.1 [facility] Comment on above: Performed By: #### C P #### [facility] [address] [place] [address] Metal Filer: Tray Diaz MD #### GLYHGB #### [address] [id number] Metal Filer: Guido Jhaveri MD MCH (RBC) [Entitic mass] 28.0 pg Normal 25.2-33.5 [facility] Comment on above: Performed By: #### C P #### [facility] [address] [place] [address] Metal Filer: Tray Diaz MD #### GLYHGB #### [address] [place], [place] [phone] Metal Filer: Guido Jhaveri MD MCHC (RBC) [Mass/Vol] 33.5 g/dL Normal 28.4-34.8 [facility] Comment on above: Performed By: #### C P #### [facility] [address] [place] [address] Dr. [place], [place] [id number] Metal Filer: Tray Diaz MD #### GLYHGB #### [address] [address] Metal Filer: Guido Jhaveri MD MCV (RBC) [Entitic vol] 83.6 fL Normal 82.6-102.9 [facility] Comment on above: Performed By: #### C P #### [facility] [address] [place] [address] Dr. [place] [phone] Metal Filer: Tray Diaz MD #### GLYHGB #### [address] [id number] Metal Filer: Guido Jhaveri MD NRBC Automated 0.0 per 100 WBC Normal 0.0 [facility] Comment on above: Performed By: #### C P #### [address] [place] [id number] Metal Filer: Tray Diaz MD #### GLYHGB #### [address] [address] Metal Filer: Guido Jhaveri MD Platelet mean volume (Bld) [Entitic vol] 10.2 fL Normal 8.1-13.5 [facility] Comment on above: Performed By: #### C P #### [address] [place], [place] 2505483 Metal Filer: Tray Diaz MD #### GLYHGB #### [address] [address] Metal Filer: Guido Jhaveri MD Platelets (Bld) [#/Vol] 235 10*3/uL Normal 138-453 [facility] Comment on above: Performed By: #### C P #### [facility] [address] [place], [place] [phone] Metal Filer: Tray Diaz MD #### GLYHGB #### [address] [place], [place] 8102008 Metal Filer: Guido Jhaveri MD RBC (Bld) [#/Vol] 5.29 10*6/uL High 3.95-5.11 [facility] Comment on above: Performed By: #### C P #### [facility] [address] [place] [address] [address]. [place] [phone] Metal Filer: Tray Diaz MD #### GLYHGB #### [address] [address] Metal Filer: Guido Jhaveri MD WBC (Bld) [#/Vol] 10.1 10*3/uL Normal 3.5-11.3 [facility] Comment on above: Performed By: #### C P #### [address] [place], [place] 7009283 Metal Filer: Tray Diaz MD #### GLYHGB #### [address] [id number] Metal Filer: Guido Jhaveri MD Lipid Profileon 04-12-2023 Cholesterol [Mass/Vol] 100 mg/dL Normal <200 [facility] Comment on above: Result Comment: Cholesterol Guidelines: <200 Desirable 200-240 Borderline >240 Undesirable Performed By: #### C P #### [facility] [address] [place], [place] 8270983 Metal Filer: Tray Diaz MD #### GLYHGB #### [address] [address] Metal Filer: Guido Jhaveri MD Cholesterol in HDL [Mass/Vol] 30 mg/dL Low >40 [facility] Comment on above: Result Comment: HDL Guidelines: <40 Undesirable 40-59 Borderline >59 Desirable Performed By: #### C P #### [facility] [address] [place] [address] Dr. [place] [phone] Metal Filer: Tray Diaz MD #### GLYHGB #### [address] [place] [address] Metal Filer: Guido Jhaveri MD Cholesterol in LDL [Mass/Vol] 41 mg/dL Normal 0-130 [facility] Comment on above: Result Comment: LDL Guidelines: <100 Desirable 100-129 Near to/above Desirable 130-159 Borderline >159 Undesirable Direct (measured) LDL and calculated LDL are not interchangeable tests. Performed By: #### C P #### [address] [place] [id number] Metal Filer: Tray Diaz MD #### GLYHGB #### [address] [address] Metal Filer: Guido Jhaveri MD Cholesterol.total/Cho lesterol in HDL [Mass ratio] 3.3 {ratio} Normal <5 [facility] Comment on above: Performed By: #### C P #### [address] [place] 1889983 Metal Filer: Tray Diaz MD #### GLYHGB #### [address] [place] [address] Metal Filer: Guido Jhaveri MD Triglyceride [Mass/Vol] 144 mg/dL Normal <150 [facility] Comment on above: Result Comment: Triglyceride Guidelines: <150 Desirable 150-199 Borderline 200-499 High >499 Very high Based on AHA Guidelines for fasting triglyceride, July 2012. Performed By: #### C P #### [facility] [address] [place], [place] [id number] Metal Filer: Tray Diaz MD #### GLYHGB #### [address] [place] [address] Metal Filer: Guido Jhaveri MD Liver Profileon 04-12-2023 Albumin [Mass/Vol] 4.3 g/dL Normal 3.5-5.2 [facility] Comment on above: Performed By: #### C P #### [facility] [address] [place], [place] [phone] Metal Filer: Tray Diaz MD #### GLYHGB #### [address] [address] Metal Filer: Guido Jhaveri MD Albumin/Glob Ratio 1.3 Normal 1.0-2.5 [facility] Comment on above: Performed By: #### C P #### [facility] [address] [place] [address] Dr. [place], [place] [phone] Metal Filer: Tray Diaz MD #### GLYHGB #### [address] [place] [address] Metal Filer: Guido Jhaveri MD Alkaline Phos 83 U/L Normal 35-104 [facility] Comment on above: Performed By: #### C P #### [facility] [address] [place] [address] Metal Filer: Tray Diaz MD #### GLYHGB #### [address] [place] [address] Metal Filer: Guido Jhaveri MD ALT [Catalytic activity/Vol] 24 U/L Normal 5-33 [facility] Comment on above: Performed By: #### C P #### [facility] [address] [place], [place] [phone] Metal Filer: Tray Diaz MD #### GLYHGB #### [facility] [address] [place] [address] Metal Filer: Guido Jhaveri MD AST [Catalytic activity/Vol] 16 U/L Normal <32 [facility] Comment on above: Performed By: #### C P #### [facility] [address] [place], [place] 6355983 Metal Filer: Tray Diaz MD #### GLYHGB #### [address] [address] Metal Filer: Guido Jhaveri MD Bilirubin [Mass/Vol] 0.5 mg/dL Normal 0.3-1.2 [facility] Comment on above: Performed By: #### C P #### [facility] [address] [place] [address] Dr. [place], [place] [phone] Metal Filer: Tray Diaz MD #### GLYHGB #### [address] [address] Metal Filer: Guido Jhaveri MD Bilirubin, Indirect Can not be calculated Normal 0.0-1 .0 [facility] Comment on above: Performed By: #### C P #### [facility] [address] [place] [address] [place] [address] Metal Filer: Tray Diaz MD #### GLYHGB #### [facility] [address] [place] [address] Metal Filer: Guido Jhaveri MD Bilirubin.indirect [Mass/Vol] mg/dL Normal <0.3 [facility] Comment on above: Performed By: #### C P #### [facility] [address] [place] [address] Metal Filer: Tray Diaz MD #### GLYHGB #### [address] [address] Metal Filer: Guido Jhaveri MD Protein [Mass/Vol] 7.5 g/dL Normal 6.4-8.3 [facility] Comment on above: Performed By: #### C P #### [facility] [address] [place] [address] Dr. [place], [place] [phone] Metal Filer: Tray Diaz MD #### GLYHGB #### [address] [phone] Metal Filer: Guido Jhaveri MD Magnesiumon 04-12-2023 Magnesium [Mass/Vol] 1.9 mg/dL Normal 1.6-2.6 [facility] Comment on above: Performed By: #### C P #### [facility] [address] [place] [address] [place] [address] Metal Filer: Tray Diaz MD #### GLYHGB #### [address] [address] Metal Filer: Guido Jhaveri MD Thyroid Stim. Horm.on 2022 Thyroid Stim. Horm. 1.53 uIU/mL Normal 0.30-5.00 [facility] Comment on above: Performed By: #### C P #### [facility] [address] [place] [address] Dr[address] [place], [place] [phone] Metal Filer: Tray Diaz MD #### GLYHGB #### [address] [address] Metal Filer: Guido Jhaveri MD Thyroxine, Freeon 04-12-2023 Thyroxine, Free 1.2 ng/dL Normal 0.9-1.7 [facility] Comment on above: Performed By: #### C P #### [facility] [address] [place] [address] [place] [address] Metal Filer: Tray Diaz MD #### GLYHGB #### [address] [address] Metal Filer: Guido Jhaveri MD Valproic Acidon 04-12-2023 Valproic Acid <3 Low 50-125 [facility] Comment on above: Performed By: #### C P #### [facility] [address] [place], [place] [phone] Metal Filer: Tray Diaz MD #### GLYHGB #### [address] [place] [address] Metal Filer: Guido Jhaveri MD Vitamin B12on 04-12-2023 Cobalamin (Vitamin B12) [Mass/Vol] 460 pg/mL Normal 232-1245 [facility] Comment on above: Performed By: #### C P #### [facility] [address] [place] [address] Dr. [place], [place] [phone] Metal Filer: Tray Diaz MD #### GLYHGB #### [address] [address] Metal Filer: Guido Jhaveri MD Hemoglobin A1Con 03-01-2023 Glucose [Mass/Vol] 120 mg/dL Normal [facility] Comment on above: Result Comment: The ADA and AACC recommend providing the estimated average glucose result to permit better patient understanding of their HBA1c result. Performed By: #### G LYHGB #### [address] [address] Metal Filer: Guido Jhaveri MD #### CP #### [facility] [address] [place] [address] Dr. [place], [place] [phone] Metal Filer: Tray Diaz MD HbA1c (Bld) [Mass fraction] 5.8 % Normal 4.0-6.0 [facility] Comment on above: Performed By: #### G LYHGB #### [address] [address] Metal Filer: Guido Jhaveri MD #### CP #### [facility] [address] [place], [place] [phone] Metal Filer: Tray Diaz MD Comp Metabolic Profon 2022 Albumin [Mass/Vol] 4.2 g/dL Normal 3.5-5.2 [facility] Comment on above: Performed By: #### G LYHGB #### [facility] [address] [place] [address] Metal Filer: Guido Jhaveri MD #### CP #### [address] [place], [place] [id number] Metal Filer: Tray Diaz MD Albumin/Glob Ratio 1.2 Normal 1.0-2.5 [facility] Comment on above: Performed By: #### G LYHGB #### [address] [address] Metal Filer: Guido Jhaveri MD #### CP #### [address] [place], [place] [id number] Metal Filer: Tray Diaz MD Alkaline Phos 77 U/L Normal 35-104 [facility] Comment on above: Performed By: #### G LYHGB #### [facility] [address] [place] [address] Metal Filer: Guido Jhaveri MD #### CP #### [address] [place], [place] [address] Metal Filer: Tray Diaz MD ALT [Catalytic activity/Vol] 23 U/L Normal 5-33 [facility] Comment on above: Performed By: #### G LYHGB #### [address] [address] Metal Filer: Guido Jhaveri MD #### CP #### [address] [place], [place] [id number] Metal Filer: Tray Diaz MD Anion gap [Moles/Vol] 13 mmol/L Normal 9-17 [facility] Comment on above: Performed By: #### G LYHGB #### [facility] [address] [place] [address] Metal Filer: Guido Jhaveri MD #### CP #### [facility] [address] [place], [place] [phone] Metal Filer: Tray Diaz MD AST [Catalytic activity/Vol] 17 U/L Normal <32 [facility] Comment on above: Performed By: #### G LYHGB #### [facility] [address] [place] [address] Metal Filer: Guido Jhaveri MD #### CP #### [facility] [address] [place] [address] [address]. [place], [place] [id number] Metal Filer: Tray Diaz MD Bilirubin [Mass/Vol] 0.3 mg/dL Normal 0.3-1.2 [facility] Comment on above: Performed By: #### G LYHGB #### [facility] [address] [place] [address] Metal Filer: Guido Jhaveri MD #### CP #### [facility] [address] [place] [address] Dr. [place], [place] [id number] Metal Filer: Tray Diaz MD BUN/CRE Ratio 20 Normal 9-20 [facility] Comment on above: Performed By: #### G LYHGB #### [facility] [address] [place] [address] Metal Filer: Guido Jhaveri MD #### CP #### [facility] [address] [place], [place] [phone] Metal Filer: Tray Diaz MD Calcium [Mass/Vol] 9.2 mg/dL Normal 8.6-10.4 [facility] Comment on above: Performed By: #### G LYHGB #### [address] [place] [address] Metal Filer: Guido Jhaveri MD #### CP #### [facility] [address] [place], [place] [phone] Metal Filer: Tray Diaz MD Chloride [Moles/Vol] 105 mmol/L Normal 98-107 [facility] Comment on above: Performed By: #### G LYHGB #### [address] [address] Metal Filer: Guido Jhaveri MD #### CP #### [facility] [address] [place] [address] Metal Filer: Tray Diaz MD CO2 [Moles/Vol] 22 mmol/L Normal 20-31 [facility] Comment on above: Performed By: #### G LYHGB #### [address] [address] Metal Filer: Guido Jhaveri MD #### CP #### [facility] [address] [place] [address] [place] [address] Metal Filer: Tray Diaz MD Creatinine [Mass/Vol] 0.66 mg/dL Normal 0.50-0.90 [facility] Comment on above: Performed By: #### G LYHGB #### [address] [address] Metal Filer: Guido Jhaveri MD #### CP #### [facility] [address] [place] [address] Metal Filer: Tray Diaz MD GFR/1.73 sq M.predicted among non-blacks MDRD (S/P/Bld) [Vol rate/Area] mL/min/{1.73_m2} Normal >60 [facility] Comment on above: Result Comment: These [...] affects renal tubular secretion. Performed By: #### G LYHGB #### [address] [address] Metal Filer: Guido Jhaveri MD #### CP #### [address] [place] [place] [address] Metal Filer: Tray Diaz MD Glucose [Mass/Vol] 127 mg/dL High 70-99 [facility] Comment on above: Performed By: #### G LYHGB #### [address] [address] Metal Filer: Guido Jhaveri MD #### CP #### [address] [place], [place] [phone] Metal Filer: Tray Diaz MD Potassium [Moles/Vol] 3.9 mmol/L Normal 3.7-5.3 [facility] Comment on above: Performed By: #### G LYHGB #### [address] [address] Metal Filer: Guido Jhaveri MD #### CP #### [address] [place], [place] [phone] Metal Filer: Tray Diaz MD Protein [Mass/Vol] 7.7 g/dL Normal 6.4-8.3 [facility] Comment on above: Performed By: #### G LYHGB #### [address] [address] Metal Filer: Guido Jhaveri MD #### CP #### [address] [place] [address] Metal Filer: Tray Diaz MD Sodium [Moles/Vol] 140 mmol/L Normal 135-144 [facility] Comment on above: Performed By: #### G LYHGB #### [facility] [address] [place], [place] [phone] Metal Filer: Guido Jhaveri MD #### CP #### [facility] [address] [place] [address] Metal Filer: Tray Diaz MD Urea nitrogen [Mass/Vol] 13 mg/dL Normal 6-20 [facility] Comment on above: Performed By: #### G LYHGB #### [facility] [address] [place], [place] [phone] Metal Filer: Guido Jhaveri MD #### CP #### [facility] [address] [place] [address] Metal Filer: Tray Diaz MD Comprehensive Metabolic Pane [facility] 02-28-2023 Albumin [Mass/Vol] 4.2 g/dL 3.5 - 5.2 g/dL [facility] Albumin/Globulin [Mass ratio] 1.2 {ratio} 1.0 - 2.[address] [facility] ALP [Catalytic activity/Vol] 77 U/L 35 - 104 U/L [facility] ALT [Catalytic activity/Vol] 23 U/L 5 - 33 U/L [facility] Anion gap [Moles/Vol] 13 mmol/L 9 - 17 mmol/L [facility] AST [Catalytic activity/Vol] 17 U/L NINF - 32 U/L [facility] Bilirubin [Mass/Vol] 0.3 mg/dL 0.3 - 1 .2 mg/dL [facility] Calcium [Mass/Vol] 9.2 mg/dL 8.6 - 10. 4 mg/dL [facility] Chloride [Moles/Vol] 105 mmol/L 98 - 10 7 mmol/L [facility] CO2 [Moles/Vol] 22 mmol/L 20 - 31 mmol/L [facility] Creatinine [Mass/Vol] 0.66 mg/dL 0.50 - 0.90 mg/dL [facility] GFR/1.73 sq M.predicted MDRD (S/P/Bld) [Vol rate/Area] - PINF [facility] Comment on above: These results are not [...] 127 mg/dL High 70 - 99 mg/dL [facility] Interpretation and review of laboratory results Abnormal [facility] Potassium [Moles/Vol] 3.9 mmol/L 3.7 - 5.3 mmol/L [facility] Protein [Mass/Vol] 7.7 g/dL 6.4 - 8.3 g/dL [facility] Sodium [Moles/Vol] 140 mmol/L 135 - 144 mmol/L [facility] Urea nitrogen [Mass/Vol] 13 mg/dL 6 - 20 mg/dL [facility] Urea nitrogen/Creatinine [Mass ratio] 20 mg/mg 9 - 20 [facility] Comp Metabolic Profon 2022 Albumin [Mass/Vol] 4.3 g/dL Normal 3.5-5.2 [facility] Comment on above: Performed By: #### C P #### [facility] [address] [place] [address] Metal Filer: Tray Diaz MD Albumin/Glob Ratio 1.3 Normal 1.0-2.5 [facility] Comment on above: Performed By: #### C P #### [facility] [address] [place] [address] Metal Filer: Tray Diaz MD Alkaline Phos 82 U/L Normal 35-104 [facility] Comment on above: Performed By: #### C P #### [facility] [address] [place], [place] [phone] Metal Filer: Tray Diaz MD ALT [Catalytic activity/Vol] 33 U/L Normal 5-33 [facility] Comment on above: Performed By: #### C P #### [facility] [address] [place], [place] [phone] Metal Filer: Tray Diaz MD Anion gap [Moles/Vol] 12 mmol/L Normal 9-17 [facility] Comment on above: Performed By: #### C P #### [facility] [address] [place], [place] [phone] Metal Filer: Tray Diaz MD AST [Catalytic activity/Vol] 19 U/L Normal <32 [facility] Comment on above: Performed By: #### C P #### [facility] [address] [place], [place] [phone] Metal Filer: Tray Diaz MD Bilirubin [Mass/Vol] 0.3 mg/dL Normal 0.3-1.2 [facility] Comment on above: Performed By: #### C P #### [facility] [address] [place], [place] [phone] Metal Filer: Tray Diaz MD BUN/CRE Ratio 24 High 9-20 [facility] Comment on above: Performed By: #### C P #### [facility] [address] [place], [place] [phone] Metal Filer: Tray Diaz MD Calcium [Mass/Vol] 9.5 mg/dL Normal 8.6-10.4 [facility] Comment on above: Performed By: #### C P #### [facility] [address] [place], [place] [phone] Metal Filer: Tray Diaz MD Chloride [Moles/Vol] 106 mmol/L Normal 98-107 [facility] Comment on above: Performed By: #### C P #### [facility] [address] [place] [address] Metal Filer: Tray Diaz MD CO2 [Moles/Vol] 22 mmol/L Normal 20-31 [facility] Comment on above: Performed By: #### C P #### [facility] [address] [place] [address] Metal Filer: Tray Diaz MD Creatinine [Mass/Vol] 0.67 mg/dL Normal 0.50-0.90 [facility] Comment on above: Performed By: #### C P #### [facility] [address] [place] [address] Metal Filer: Tray Diaz MD GFR/1.73 sq M.predicted among non-blacks MDRD (S/P/Bld) [Vol rate/Area] mL/min/{1.73_m2} Normal >60 [facility] Comment on above: Result Comment: These [...] secretion. Performed By: #### C P #### [facility] [address] [place] [address] Metal Filer: Tray Diaz MD Glucose [Mass/Vol] 126 mg/dL High 70-99 [facility] Comment on above: Performed By: #### C P #### [facility] [address] [place] [address] Metal Filer: Tray Diaz MD Potassium [Moles/Vol] 3.9 mmol/L Normal 3.7-5.3 [facility] Comment on above: Performed By: #### C P #### [facility] [address] [place] [address] Metal Filer: Tray Diaz MD Protein [Mass/Vol] 7.5 g/dL Normal 6.4-8.3 [facility] Comment on above: Performed By: #### C P #### [facility] [address] [place], [place] [phone] Metal Filer: Tray Diaz MD Sodium [Moles/Vol] 140 mmol/L Normal 135-144 [facility] Comment on above: Performed By: #### C P #### [facility] [address] [place] [address] Metal Filer: Tray Diaz MD Urea nitrogen [Mass/Vol] 16 mg/dL Normal 6-20 [facility] Comment on above: Performed By: #### C P #### [facility] [address] [place] [address] Metal Filer: Tray Diaz MD Comprehensive Metabolic Pane [facility] 01-18-2023 Albumin [Mass/Vol] 4.3 g/dL 3.5 - 5.2 g/dL [facility] Albumin/Globulin [Mass ratio] 1.3 {ratio} 1.0 - 2.[address] [facility] ALP [Catalytic activity/Vol] 82 U/L 35 - 104 U/L [facility] ALT [Catalytic activity/Vol] 33 U/L 5 - 33 U/L [facility] Anion gap [Moles/Vol] 12 mmol/L 9 - 17 mmol/L [facility] AST [Catalytic activity/Vol] 19 U/L NINF - 32 U/L [facility] Bilirubin [Mass/Vol] 0.3 mg/dL 0.3 - 1 .2 mg/dL [facility] Calcium [Mass/Vol] 9.5 mg/dL 8.6 - 10. 4 mg/dL [facility] Chloride [Moles/Vol] 106 mmol/L 98 - 10 7 mmol/L [facility] CO2 [Moles/Vol] 22 mmol/L 20 - 31 mmol/L [facility] Creatinine [Mass/Vol] 0.67 mg/dL 0.50 - 0.90 mg/dL [facility] GFR/1.73 sq M.predicted MDRD (S/P/Bld) [Vol rate/Area] - PINF [facility] Comment on above: These results are not [...] 126 mg/dL High 70 - 99 mg/dL [facility] Interpretation and review of laboratory results Abnormal [facility] Potassium [Moles/Vol] 3.9 mmol/L 3.7 - 5.3 mmol/L [facility] Protein [Mass/Vol] 7.5 g/dL 6.4 - 8.3 g/dL [facility] Sodium [Moles/Vol] 140 mmol/L 135 - 144 mmol/L [facility] Urea nitrogen [Mass/Vol] 16 mg/dL 6 - 20 mg/dL [facility] Urea nitrogen/Creatinine (Bld) [Mass ratio] 24 High 9 - 20 [facility] Basic Metabolic Panelon 10-02 Anion gap [Moles/Vol] 15 mmol/L 9 - 17 mmol/L [facility] Calcium [Mass/Vol] 9.4 mg/dL 8.6 - 10. 4 mg/dL [facility] Chloride [Moles/Vol] 104 mmol/L 98 - 10 7 mmol/L [facility] CO2 [Moles/Vol] 20 mmol/L 20 - 31 mmol/L [facility] Creatinine [Mass/Vol] 0.77 mg/dL 0.50 - 0.90 mg/dL [facility] GFR/1.73 sq M.predicted MDRD (S/P/Bld) [Vol rate/Area] - PINF [facility] Comment on above: Effective Jul 03, 2022 [...] 112 mg/dL High 70 - 99 mg/dL [facility] Interpretation and review of laboratory results Abnormal [facility] Potassium [Moles/Vol] 3.8 mmol/L 3.7 - 5.3 mmol/L [facility] Sodium [Moles/Vol] 139 mmol/L 135 - 144 mmol/L [facility] Urea nitrogen (BldV) [Mass/Vol] 10 mg/dL 6 - 20 mg/dL [facility] Urea nitrogen/Creatinine (Bld) [Mass ratio] 13 9 - [address] [facility] CBCon 10-25-2022 Hematocrit (Bld) [Volume fraction] 46.5 % 36.3 - 47.1 % [facility] Hemoglobin (Bld) [Mass/Vol] 15.6 g/dL High 11.9 - 15.1 g/dL [facility] Interpretation and review of laboratory results Abnormal [facility] MCH (RBC) [Entitic mass] 28.8 pg 25.2 - 33.[address] [facility] MCHC (RBC) [Mass/Vol] 33.5 g/dL 28.4 - 34.8 g/dL [facility] MCV (RBC) [Entitic vol] 85.8 fL 82.6 - 102.[address] [facility] NRBC Automated 0.0 0.0 per [address] [facility] Platelet distribution width (Bld) [Ratio] 12.6 % 11.8 - 14.4 % [facility] Platelet mean volume (Bld) [Entitic vol] 11.0 fL 8.1 - 13.[address] [facility] Platelets (Bld) [#/Vol] 239 10*3/uL [facility] RBC (Bld) [#/Vol] 5.42 10*6/uL High 3.95 - 5.11 m/uL [facility] WBC (Bld) [#/Vol] 9.3 10*3/uL [facility] Hemoglobin A1Con 10-25-2022 Glucose [Mass/Vol] 114 mg/dL [facility] Comment on above: The ADA and AACC rec ommend providing the estimated average glucose result to permit better patient understanding of their HBA1c result. HbA1c (Bld) [Mass fraction] 5.6 % 4.0 - 6.0 % [facility] Hepatic Function Panelon Albumin [Mass/Vol] 4.5 g/dL 3.5 - 5.2 g/dL [facility] Albumin/Globulin [Mass ratio] 1.5 {ratio} 1.0 - 2.[address] [facility] ALP (Bld) [Catalytic activity/Vol] 76 U/L 35 - 104 U/L [facility] ALT [Catalytic activity/Vol] 29 U/L 5 - 33 U/L [facility] AST [Catalytic activity/Vol] 20 U/L NINF - 32 U/L [facility] Bilirubin [Mass/Vol] 0.3 mg/dL 0.3 - 1 .2 mg/dL [facility] Bilirubin, Indirect Can not be calculated 0.0 - 1.0 mg/dL [facility] Bilirubin.indirect [Mass/Vol] mg/dL NINF - 0.3 mg/dL [facility] Protein [Mass/Vol] 7.6 g/dL 6.4 - 8.3 g/dL [facility] Lipid Panelon 10-25-2022 Cholesterol [Mass/Vol] 95 mg/dL NINF - 200 mg/dL [facility] Comment on above: Cholesterol Guidelines: <200 Desirable 200-240 Borderline >240 Undesirable Cholesterol in HDL [Mass/Vol] 26 mg/dL Low 40 - PINF mg/dL [facility] Comment on above: HDL Guidelines: <40 Undesirable 40-59 Borderline >59 Desirable Cholesterol in LDL [Mass/Vol] 46 mg/dL 0 - 130 mg/dL [facility] Comment on above: LDL Guidelines: <100 Desirable 100-129 Near to/above Desirable 130-159 Borderline >159 Undesirable Direct (measured) LDL and calculated LDL are not interchangeable tests. Cholesterol.total/Cho lesterol in HDL [Mass ratio] 3.7 {ratio} NINF - 5 [facility] [employer] [facility] [employer] Interpretation and review of laboratory results Abnormal [facility] [employer] Triglyceride [Mass/Vol] 117 mg/dL NINF - 150 mg/dL [facility] Comment on above: Triglyceride Guidelines: <150 Desirable 150-199 Borderline 200-499 High >499 Very high Based on AHA Guidelines for fasting triglyceride, July 2012. [facility] No Panel Informationon 10-25 [facility] T4, Freeon 10-25-2022 Thyroxine, Free 1.31 ng/dL 0.93 - 1.70 ng/dL [facility] [employer] [facility] [employer] TSHon 10-25-2022 TSH Qn 1.45 m[IU]/L [facility] [employer] Valproic Acid Level, Totalon 10-25-2022 Interpretation and review of laboratory results Abnormal [facility] [employer] Valproic Acid Lvl <3 Low 50 - 125 ug/mL [facility] [employer] [facility] [employer] Basic Metabolic Panelon 10- Anion gap [Moles/Vol] 10 mmol/L 9 - 17 mmol/L [facility] [employer] Calcium [Mass/Vol] 9.4 mg/dL 8.6 - 10. 4 mg/dL [facility] [employer] Chloride [Moles/Vol] 108 mmol/L High 98 - 10 7 mmol/L [facility] CO2 [Moles/Vol] 22 mmol/L 20 - 31 mmol/L [facility] Creatinine [Mass/Vol] 0.79 mg/dL 0.5 - 0.9 mg/dL [facility] GFR/1.73 sq M.predicted MDRD (S/P/Bld) [Vol rate/Area] - PINF [facility] Comment on above: Effective Jul 03, 2022 [...] 116 mg/dL High 70 - 99 mg/dL [facility] Interpretation and review of laboratory results Abnormal [facility] Potassium [Moles/Vol] 3.8 mmol/L 3.7 - 5.3 mmol/L [facility] Sodium [Moles/Vol] 140 mmol/L 135 - 144 mmol/L [facility] Urea nitrogen (BldV) [Mass/Vol] 14 mg/dL 6 - 20 mg/dL [facility] Urea nitrogen/Creatinine (Bld) [Mass ratio] 18 9 - 20 [facility] CBCon 07-13-2022 Hematocrit (Bld) [Volume fraction] 41.8 % 36.3 - 47.1 % [facility] Hemoglobin (Bld) [Mass/Vol] 14.3 g/dL 11.9 - 15.1 g/dL [facility] MCH (RBC) [Entitic mass] 28.9 pg 25.2 - 33.[address] [facility] MCHC (RBC) [Mass/Vol] 34.2 g/dL 28.4 - 34.8 g/dL [facility] MCV (RBC) [Entitic vol] 84.4 fL 82.6 - 102.[address] [facility] NRBC Automated 0.0 0.0 per [address] [facility] Platelet distribution width (Bld) [Ratio] 12.8 % 11.8 - 14.4 % [facility] Platelet mean volume (Bld) [Entitic vol] 10.6 fL 8.1 - 13.[address] [facility] Platelets (Bld) [#/Vol] 259 10*3/uL [facility] RBC (Bld) [#/Vol] 4.95 10*6/uL 3.95 - 5.11 m/uL [facility] WBC (Bld) [#/Vol] 8.2 10*3/uL [facility] Hemoglobin A1Con 07-13-2022 Glucose [Mass/Vol] 117 mg/dL [facility] Comment on above: The ADA and AACC rec ommend providing the estimated average glucose result to permit better patient understanding of their HBA1c result. HbA1c (Bld) [Mass fraction] 5.7 % 4 - 6 % [facility] Hepatic Function Panelon Albumin [Mass/Vol] 4.1 g/dL 3.5 - 5.2 g/dL [facility] Albumin/Globulin [Mass ratio] 1.3 {ratio} 1 - 2.[address] [facility] ALP (Bld) [Catalytic activity/Vol] 80 U/L 35 - 104 U/L [facility] ALT [Catalytic activity/Vol] 35 U/L High 5 - 33 U/L [facility] AST [Catalytic activity/Vol] 21 U/L NINF - 32 U/L [facility] Bilirubin [Mass/Vol] mg/dL Low 0.3 - 1 .2 mg/dL [facility] Bilirubin, Indirect Can not be calculated 0 - 1 mg/dL [facility] Bilirubin.indirect [Mass/Vol] mg/dL NINF - 0.31 mg/dL [facility] Interpretation and review of laboratory results Abnormal [facility] Protein [Mass/Vol] 7.2 g/dL 6.4 - 8.3 g/dL [facility] Lipid Panelon 07-13-2022 Cholesterol [Mass/Vol] 116 mg/dL NINF - 200 mg/dL [facility] Comment on above: Cholesterol Guidelines: <200 Desirable 200-240 Borderline >240 Undesirable Cholesterol in HDL [Mass/Vol] 28 mg/dL Low 40 - PINF mg/dL [facility] Comment on above: HDL Guidelines: <40 Undesirable 40-59 Borderline >59 Desirable Cholesterol in LDL [Mass/Vol] 53 mg/dL 0 - 130 mg/dL [facility] Comment on above: LDL Guidelines: <100 Desirable 100-129 Near to/above Desirable 130-159 Borderline >159 Undesirable Direct (measured) LDL and calculated LDL are not interchangeable tests. Cholesterol.total/Cho lesterol in HDL [Mass ratio] 4.1 {ratio} NINF - [address] [facility] Interpretation and review of laboratory results Abnormal [facility] Triglyceride [Mass/Vol] 177 mg/dL High NINF - 150 mg/dL [facility] Comment on above: Triglyceride Guidelines: <150 Desirable 150-199 Borderline 200-499 High >499 Very high Based on AHA Guidelines for fasting triglyceride, July 2012. [facility] Patient Instructionson 04-05 Imaging Center Manager Authentication Interface Message Text Dental extraction Instructions [...] done to speak with an oral surgeon. [facility] [phone]. HELPING THE HEALING PROCESS AND STOPPING THE [...] c (more content not included)... Normal [facility] Progress Noteson 04-05-2022 Imaging Center Manager Authentication Interface Message Text Attestation signed by [...] DMD, MD ORAL SURGERY PROCEDURE ROOM NOTE [facility] Product(s): Routine extraction teeth # 19, # 30 and # 32 and Surgical extraction teeth # 17 PMH: Reviewed, no change. Antibiotic prophylaxis indicated/taken: no Discussed risks, benefits, and alternatives of treatment. All of the patient's questions were answered, and informed consent was obtained: yes Pre-op Diagnosis: Chronic dental caries extending to pulp [[id number]] Caries PROCEDURE TIME OUT CHECK LIST 1. [...] Home Fernanda Jennings DMD, MD Normal [facility] Imaging Center Manager Authentication Interface Message Text Normal [facility] Telephone Encounteron 2021 Imaging Center Manager Authentication Interface Message Text #17, #19, #30, #32 Clinic 60 Mins Portia [place] to schedule - no PA needed. Normal [facility] Patient Instructionson 02-01 Imaging Center Manager Authentication Interface Message Text Dental extraction Instructions [...] done to speak with an oral surgeon. [facility] [phone]. HELPING THE HEALING PROCESS AND STOPPING THE [...] containing (more content not included)... Normal [facility] Progress Noteson 02-01-2022 Imaging Center Manager Authentication Interface Message Text Attestation signed by [...] DIAGNOSIS: Chronic dental caries extending to pulp [039387] TREATMENT: Exam and goyal PLAN: Extraction of teeth # 17,19,30,32 under local anesthesia in clinic. Magali Schaeffer DDS [facility] Basic Metabolic Panelon 10-01 Anion gap [Moles/Vol] 17 mmol/L 9 - 17 mmol/L [facility] Calcium [Mass/Vol] 9.3 mg/dL 8.6 - 10. 4 mg/dL [facility] Chloride [Moles/Vol] 103 mmol/L 98 - 10 7 mmol/L [facility] CO2 [Moles/Vol] 21 mmol/L 20 - 31 mmol/L [facility] Creatinine [Mass/Vol] 0.77 mg/dL 0.50 - 0.90 mg/dL [facility] GFR >60 >60 mL/min [facility] GFR Non- >60 >60 mL/min [facility] Glucose [Mass/Vol] 101 mg/dL High 70 - 99 mg/dL [facility] Interpretation and review of laboratory results Abnormal [facility] Potassium [Moles/Vol] 4.3 mmol/L 3.7 - 5.3 mmol/L [facility] Sodium [Moles/Vol] 141 mmol/L 135 - 144 mmol/L [facility] Urea nitrogen (BldV) [Mass/Vol] 11 mg/dL 6 - 20 mg/dL [facility] Urea nitrogen/Creatinine (Bld) [Mass ratio] 14 [facility] Hepatic Function Panelon Albumin [Mass/Vol] 4.3 g/dL 3.5 - 5.2 g/dL [facility] Albumin/Globulin [Mass ratio] 1.7 {ratio} [facility] ALP (Bld) [Catalytic activity/Vol] 84 U/L 35 - 104 U/L [facility] ALT [Catalytic activity/Vol] 31 U/L 5 - 33 U/L [facility] AST [Catalytic activity/Vol] 22 U/L <32 [facility] Bilirubin [Mass/Vol] 0.38 mg/dL 0.3 - 1 .2 mg/dL [facility] Bilirubin, Indirect Can not be calculated 0.00 - 1.00 mg/dL [facility] Bilirubin.indirect [Mass/Vol] mg/dL <0.31 mg/dL [facility] Free PSA/Total PSA [Mass fraction] 6.9 g/dL 6.4 - 8.3 g/dL [facility] Globulin NOT REPORTED 1.5 - 3.8 g/dL [facility] Laboratory - Chemistry and C hemistry - challengeon 10-12-2021 GFR/1.73 sq M.predicted MDRD (S/P/Bld) [Vol rate/Area] [facility] Comment on above: Average GFR for 20-2 9 years old: 116 mL/min/1.73sq m Chronic Kidney Disease: <60 mL/min/1.73sq m Kidney failure: <15 mL/min/1.73sq m eGFR calculated using average adult body mass. Additional eGFR calculator available at: http://www.[employer]/multiple_crcl_2012.htm Stage 1: Some kidney damage normal GFR Stage 2: Mild kidney damage GFR 60-89 Stage 3: Moderate kidney damage GFR 30-59 Stage 4: Severe kidney damage GFR 15-29 Stage 5: Severe kidney damage GFR <15 ESRD - chronic treatment by dialysis or transplant Lipid Panelon 10-12-2021 Cholesterol [Mass/Vol] 101 mg/dL <200 [facility] Comment on above: Cholesterol Guidelines: <200 Desirable 200-240 Borderline >240 Undesirable Cholesterol in HDL [Mass/Vol] 29 mg/dL Low >40 [facility] Comment on above: HDL Guidelines: <40 Undesirable 40-59 Borderline >59 Desirable Cholesterol in LDL [Mass/Vol] 42 mg/dL 0 - 130 mg/dL [facility] Comment on above: LDL Guidelines: <100 Desirable 100-129 Near to/above Desirable 130-159 Borderline >159 Undesirable Direct (measured) LDL and calculated LDL are not interchangeable tests. Cholesterol in VLDL [Mass/Vol] NOT REPORTED 1 - 30 mg/dL [facility] Cholesterol.total/Cho lesterol in HDL [Mass ratio] 3.5 {ratio} <5 [facility] Interpretation and review of laboratory results Abnormal [facility] Triglyceride [Mass/Vol] 151 mg/dL High <150 [facility] Comment on above: Triglyceride Guidelines: <150 Desirable 150-199 Borderline 200-499 High >499 Very high Based on AHA Guidelines for fasting triglyceride, July 2012. [facility] No Panel Informationon 10-12 [facility] Valproic acid level, totalon 10-12-2021 Interpretation and review of laboratory results Abnormal [facility] Valproic Acid Lvl <3 Low 50 - 125 ug/mL [facility] Date last dose NOT REPORTED [facility] Dose amount NOT REPORTED [facility] Valproic Time last dose NOT REPORTED [employer] PotassiumOrdered By: Heath Ellis on 05-18-2021 Interpretation and review of laboratory results Abnormal [facility]: Potassium [Moles/Vol] 3.6 mmol/L Low 3.7 - 5.3 mmol/L [facility]: [facility]: Basic Metabolic PanelOrdered By: Irina Noguera on 04-13-2021 Anion gap [Moles/Vol] 16 mmol/L 9 - 17 mmol/L [facility] [employer]: Calcium [Mass/Vol] 9.2 mg/dL 8.6 - 10. 4 mg/dL [facility]: Chloride [Moles/Vol] 102 mmol/L 98 - 10 7 mmol/L [facility]: CO2 [Moles/Vol] 19 mmol/L Low 20 - 31 mmol/L [facility]: Creatinine [Mass/Vol] 0.76 mg/dL 0.50 - 0.90 mg/dL [facility] Phone: GFR >60 >60 mL/min [facility] Phone: GFR Non- >60 >60 mL/min [facility]: Glucose [Mass/Vol] 105 mg/dL High 70 - 99 mg/dL [facility] Phone: Interpretation and review of laboratory results Abnormal [facility] Phone: Potassium [Moles/Vol] 3.6 mmol/L Low 3.7 - 5.3 mmol/L [facility]: Sodium [Moles/Vol] 137 mmol/L 135 - 144 mmol/L [facility] Phone: Urea nitrogen (BldV) [Mass/Vol] 11 mg/dL 6 - 20 mg/dL [facility] Phone: Urea nitrogen/Creatinine (Bld) [Mass ratio] 14 [facility] Phone: CBCOrdered By: Irina jean on 04-13-2021 Hematocrit (Bld) [Volume fraction] 44.0 % 36.3 - 47.1 % [facility] Phone: Hemoglobin.gastrointe stinal spec 1 Ql (Stl) 14.4 g/dL 11.9 - 15.1 g/dL [facility] Phone: Interpretation and review of laboratory results Abnormal [facility] Phone: MCH (RBC) [Entitic mass] 27.7 pg 25.2 - 33.5 pg [facility] Phone: MCHC (RBC) [Mass/Vol] 32.7 g/dL 28.4 - 34.8 g/dL [facility] Phone: MCV (RBC) [Entitic vol] 84.8 fL 82.6 - 102.9 fL [facility] Phone: NRBC Automated 0.0 0.0 per 100 WBC [facility] Phone: Platelet distribution width (Bld) [Ratio] 12.2 % 11.8 - 14.4 % [facility] Phone: Platelet mean volume (Bld) [Entitic vol] 10.8 fL 8.1 - 13.5 fL [facility]: Platelets (Bld) [#/Vol] 204 10*3/uL [facility] Phone: RBC (Bld) [#/Vol] 5.19 10*6/uL High 3.95 - 5.11 m/uL [facility] Phone: WBC (Bld) [#/Vol] 9.8 10*3/uL [facility]: [facility] Phone: Hemoglobin [id number] By: Rosales Noguera on 04-13-2021 Glucose [Mass/Vol] 117 mg/dL [facility]: Comment on above: The ADA and AACC rec ommend providing the estimated average glucose result to permit better patient understanding of their HBA1c result. HbA1c (Bld) [Mass fraction] 5.7 % 4.0 - 6.0 % [facility]: [facility] Phone: Hepatic Function PanelOrdere d By: Irina Noguera on 04-13-2021 Albumin [Mass/Vol] 4.1 g/dL 3.5 - 5.2 g/dL [facility] Phone: Albumin/Globulin [Mass ratio] 1.3 {ratio} [facility] Phone: ALP (Bld) [Catalytic activity/Vol] 84 U/L 35 - 104 U/L [facility] Phone: ALT [Catalytic activity/Vol] 22 U/L 5 - 33 U/L [facility] Phone: AST [Catalytic activity/Vol] 16 U/L <32 [facility] Phone: Bilirubin [Mass/Vol] 0.31 mg/dL 0.3 - 1 .2 mg/dL [facility] Phone: Bilirubin, Indirect CANNOT BE CALCULATED 0.00 - 1.00 mg/dL [facility] Phone: Bilirubin.indirect [Mass/Vol] mg/dL <0.31 mg/dL [facility] Phone: Free PSA/Total PSA [Mass fraction] 7.2 g/dL 6.4 - 8.3 g/dL [facility] Phone: Globulin NOT REPORTED 1.5 - 3.8 g/dL [facility] Phone: Laboratory - Chemistry and C hemistry - challengeOrdered By: Irina Noguera on 04-13-2021 GFR/1.73 sq M.predicted MDRD (S/P/Bld) [Vol rate/Area] [facility] Phone: Comment on above: Average GFR for 20-2 9 years old: 116 mL/min/1.73sq m Chronic Kidney Disease: <60 mL/min/1.73sq m Kidney failure: <15 mL/min/1.73sq m eGFR calculated using average adult body mass. Additional eGFR calculator available at: http://www.[employer]/multiple_crcl_2012.htm Stage 1: Some kidney damage normal GFR Stage 2: Mild kidney damage GFR 60-89 Stage 3: Moderate kidney damage GFR 30-59 Stage 4: Severe kidney damage GFR 15-29 Stage 5: Severe kidney damage GFR <15 ESRD - chronic treatment by dialysis or transplant Lipid PanelOrdered By: Eleno Noguera on 04-13-2021 Cholesterol [Mass/Vol] 93 mg/dL <200 [facility] Phone: Comment on above: Cholesterol Guidelines: <200 Desirable 200-240 Borderline >240 Undesirable Cholesterol in HDL [Mass/Vol] 29 mg/dL Low >40 [facility] Phone: Comment on above: HDL Guidelines: <40 Undesirable 40-59 Borderline >59 [facility] Cholesterol in LDL [Mass/Vol] 43 mg/dL 0 - 130 mg/dL [facility] Phone: Comment on above: LDL Guidelines: <100 Desirable 100-129 Near to/above Desirable 130-159 Borderline >159 Undesirable Direct (measured) LDL and calculated LDL are not interchangeable tests. Cholesterol in VLDL [Mass/Vol] NOT REPORTED 1 - 30 mg/dL [facility] Phone: Cholesterol.total/Cho lesterol in HDL [Mass ratio] 3.2 {ratio} <5 [facility]: Interpretation and review of laboratory results Abnormal [facility]: Triglyceride [Mass/Vol] 106 mg/dL <150 [facility] Phone: Comment on above: Triglyceride Guidelines: <150 Desirable 150-199 Borderline 200-499 High >499 Very high Based on AHA Guidelines for fasting triglyceride, July 2012. [facility] Phone: No Panel InformationOrdered By: Iirna Noguera on 04-13-2021 [facility] Phone: Valproic acid level, totalOr dered By: Irina Noguera on 04-13-2021 Interpretation and review of laboratory results Abnormal [facility] Phone: Valproic Acid Lvl <3 Low 50 - 125 ug/mL [facility]: Valproic Date last dose NOT REPORTED [facility]: Valproic Dose amount NOT REPORTED [facility] Phone: Valproic Time last dose NOT REPORTED [facility] Phone: [facility] Phone: Urinalysis with Microscopico n 04-28-2020 Amorphous, UA NOT REPORTED None [facility] [place] Bacteria, UA TRACE Abnormal None [facility] [place] Bilirubin Urine Negative NEGATIVE [facility] [place] Casts UA NOT REPORTED /LPF [facility] [place] Color, UA YELLOW YELLOW [facility] [place] Crystals, UA NOT REPORTED None /HPF [facility] [place] Epithelial Cells UA 5 TO 10 [facility] [place] Glucose, Ur Negative NEGATIVE [facility] [place] Interpretation and review of laboratory results Abnormal [facility] [place] Ketones Ql (U) Negative NEGATIVE [facility] [place] Leukocyte esterase Test strip Ql (U) Negative NEGATIVE [facility] [place] Mucus, UA NOT REPORTED None [facility] [place] Nitrite, Urine Negative NEGATIVE [facility] [place], [place] Other Observations UA NOT REPORTED NOT REQ. M [facility] [place] pH, UA 6.0 [place] Protein (U) [Mass/Vol] Negative NEGATIVE [place] RBC (U) [#/Vol] 0 TO 2 [place] Renal Epithelial, UA NOT REPORTED 0 /HPF Me [place], [place] Specific [place], UA 1.020 [place], [place] Trichomonas, UA NOT REPORTED None [place] Turbidity UA CLEAR CLEAR [place] Urinalysis Comments NOT REPORTED [place] Urine Hgb Negative NEGATIVE [place] Urobilinogen, Urine Normal Normal [place] WBC, UA 0 TO 2 [place] Yeast, UA NOT REPORTED [place] COVID-19 PCRon 04-18-2020 SARS-CoV-2, RD Not Detected Normal Not Detected [facility] Comment on above: Result Comment: This test was developed and its performance characteristics determined by [employer]. This test has not been FDA cleared [...] assay. Performed By: #### C VDPCR #### [facility] [address] [place] [address] Osvaldo Chavez BNPon 09-14-2019 Natriuretic peptide B (Bld) [Mass/Vol] 37.0 pg/mL Normal <=450.0 [facility] Comment on above: Performed By: #### C MP, BNP, TSH, TROP #### [facility] [address] [place], [place] [id number] Osvaldo Kathy CBC AUTO DIFFon 09-14-2019 Basophils (Bld) [#/Vol] 0.1 103/ul Normal 0.0-0.1 [facility] Comment on above: Performed By: #### C BC #### [facility] [address] [place], [place] [id number] Osvaldo Kathy Basophils/100 WBC (Bld) 0.4 % Normal 0.2-2.0 [facility] Comment on above: Performed By: #### C BC #### [facility] [address] [place], [place] [phone] Osvaldo Kathy Eosinophils (Bld) [#/Vol] 0.0 103/ul Normal 0.0-0.7 [facility] Comment on above: Performed By: #### C BC #### [facility] [address] [place] [address] Osvaldo Kathy Eosinophils/100 WBC (Bld) 0.2 % Critically low 0.9-7.0 [facility] Comment on above: Performed By: #### C BC #### [facility] [address] [place] [address] Osvaldo Kathy Erythrocyte distribution width (RBC) [Ratio] 12.2 % Normal 11.0-15.0 [facility] Comment on above: Performed By: #### C BC #### [facility] [address] [place] [address] Osvaldo Kathy Hematocrit (Bld) [Volume fraction] 46.2 % Normal 36.0-48.0 [facility] Comment on above: Performed By: #### C BC #### [facility] [address] [place], [place] [id number] Osvaldo Kathy Hemoglobin (Bld) [Mass/Vol] 15.6 g/dL Normal 12.0-16.0 [facility] Comment on above: Performed By: #### C BC #### [facility] [address] [place] [address] Osvaldo Kathy IG # 0.04 10e3/ul Critically high 0.00-0.[address] [facility] Comment on above: Performed By: #### C BC #### [facility] [address] [place], [place] [id number] Osvaldo Kathy IG % 0.3 % Normal 0.0-0.5 [facility] Comment on above: Performed By: #### C BC #### [facility] [address] [place], [place] [phone] Osvaldo Kathy Lymphocytes (Bld) [#/Vol] 4.5 103/ul Critically high 1.2-3.8 [facility] Comment on above: Performed By: #### C BC #### [facility] [address] [place], [place] [phone] Osvaldo Kathy Lymphocytes/100 WBC (Bld) 38.6 % Normal 20.5-60.0 [facility] Comment on above: Performed By: #### C BC #### [facility] [address] [place], [place] [phone] Osvaldo Kathy MANUAL DIFF REQ NO Normal [facility] Comment on above: Performed By: #### C BC #### [facility] [address] [place], [place] [id number] Osvaldo Kathy MCH (RBC) [Entitic mass] 28.5 pg Normal 26.7-34.0 [facility] Comment on above: Performed By: #### C BC #### [facility] [address] [place], [place] [phone] Osvaldo Kathy MCHC (RBC) [Mass/Vol] 33.8 g/dL Normal 29.9-35.2 [facility] Comment on above: Performed By: #### C BC #### [facility] [address] [place], [place] [phone] Osvaldo Kathy MCV (RBC) [Entitic vol] 84.3 fL Normal 81.0-99.0 [facility] Comment on above: Performed By: #### C BC #### [facility] [address] [place], [place] [phone] Osvaldo Kathy Monocytes (Bld) [#/Vol] 0.6 103/ul Normal 0.3-0.8 [facility] Comment on above: Performed By: #### C BC #### [facility] [address] [place], [place] [address] Osvaldomisael Chavez Monocytes/100 WBC (Bld) 5.5 % Normal 1.7-12.0 [facility] Comment on above: Performed By: #### C BC #### [facility] [address] [place] [address] Osvaldo Kathy Neutrophils (Bld) [#/Vol] 6.4 103/ul Normal 1.4-6.5 [facility] Comment on above: Performed By: #### C BC #### [facility] [address] [place], [place] [phone] Osvaldomisael Chavez Neutrophils/100 WBC (Bld) 55.0 % Normal 43.0-75.0 [facility] Comment on above: Performed By: #### C BC #### [facility] [address] [place], [place] [phone] Osvaldomisael Chavez Platelet mean volume (Bld) [Entitic vol] 9.8 fL Normal 9.5-13.5 [facility] Comment on above: Performed By: #### C BC #### [facility] [address] [place] [phone] Osavldo Chavez Platelets (Bld) [#/Vol] 293 103/ul Normal 150-450 [facility] Comment on above: Performed By: #### C BC #### [facility] [address] [place], [place] [phone] Osvaldomisael Bautistaen RBC (Bld) [#/Vol] 5.48 106/ul Critically high 4.20-5.40 [facility] Comment on above: Performed By: #### C BC #### [facility] [address] [place] [address] Osvaldo Kathy WBC (Bld) [#/Vol] 11.7 103/ul Critically high 4.0-11.0 [facility] Comment on above: Performed By: #### C BC #### [facility] [address] [place] [address] Osvaldomisael Bautistaen ER URINE PROFILEon 9 Bilirubin [Mass/Vol] Negative Normal NEGATIVE [facility] Comment on above: Performed By: #### E RUR #### [facility] [address] [place] [address] Osvaldo Kathy BLOOD Negative Normal NEGATIVE [facility] Comment on above: Performed By: #### E RUR #### [facility] [address] [place], [place] [phone] Osvaldo Kathy Clarity (U) CLEAR Normal [facility] Comment on above: Performed By: #### E RUR #### [facility] [address] [place] [address] Osvaldo Kathy Color (U) YELLOW Normal YELLOW [facility] Comment on above: Performed By: #### E RUR #### [facility] [address] [place] [address] Osvaldo Kathy ERUAHD A micrscopic examina tion will be performed if indicated. Normal [facility] Comment on above: Performed By: #### E RUR #### [facility] [address] [place] [address] Osvaldo Kathy Glucose [Mass/Vol] Negative Normal NEGATIVE [facility] Comment on above: Performed By: #### E RUR #### [facility] [address] [place] [address] Osvaldo Kathy Ketones Ql (U) Negative Normal NEGATIVE [facility] Comment on above: Performed By: #### E RUR #### [facility] [address] [place] [address] Osvaldo Kathy Nitrite Ql (U) Negative Normal NEGATIVE [facility] Comment on above: Performed By: #### E RUR #### [facility] [address] [place], [place] [phone] Osvaldo Kathy pH (Bld) 6.0 Normal 5-9 [facility] Comment on above: Performed By: #### E RUR #### [facility] [address] [place] [address] Osvaldo Kathy Protein (U) [Mass/Vol] Negative Normal [facility] Comment on above: Performed By: #### E RUR #### [facility] [address] [place] [id number] Osvaldo Chavez SPEC GRAVITY 1.015 Normal 1.005-<=1. 025 [facility] Comment on above: Performed By: #### E RUR #### [facility] [address] [place], [place] [phone] Osvaldomisael Chavez UR MICRO IND NOT INDICATED Normal [facility] Comment on above: Performed By: #### E RUR #### [facility] [address] [place], [place] [phone] Osvaldomisael Chavez Urobilinogen Qn (U) 0.2 EU/dl Normal [facility] Comment on above: Performed By: #### E RUR #### [facility] [address] [place], [place] [phone] Osvaldomisael Chavez WBC (Bld) [#/Vol] Negative Normal NEGATIVE [facility] Comment on above: Performed By: #### E RUR #### [facility] [address] [place], [place] [phone] Osvaldo Chavez PROF 14(COMP METB)on 09-14- 019 Albumin [Mass/Vol] 4.1 g/dL Normal 3.5-5.0 [facility] Comment on above: Performed By: #### C MP, BNP, TSH, TROP #### [facility] [address] [place], [place] [phone] Osvaldomisael Chavez Albumin/Globulin [Mass ratio] 1.0 {ratio} Normal [facility] Comment on above: Performed By: #### C MP, BNP, TSH, TROP #### [facility] [address] [place], [place] [phone] Osvaldo Kathy ALP [Catalytic activity/Vol] 80 U/L Normal 38-126 [facility] Comment on above: Performed By: #### C MP, BNP, TSH, TROP #### [facility] [address] [place], [place] [phone] Osvaldo Kathy ALT [Catalytic activity/Vol] 51 U/L Normal 9-52 [facility] Comment on above: Performed By: #### C MP, BNP, TSH, TROP #### [facility] [address] [place], [place] [address] Osvaldo Kathy Anion gap [Moles/Vol] 16.6 mmol/L Normal [facility] Comment on above: Performed By: #### C MP, BNP, TSH, TROP #### [facility] [address] [place] [address] Osvaldo Kathy AST [Catalytic activity/Vol] 21 U/L Normal 14-36 [facility] Comment on above: Performed By: #### C MP, BNP, TSH, TROP #### [facility] [address] [place] [address] Osvaldo Kathy Bilirubin Ql (U) 0.3 mg/dL Normal 0.2-1.3 [facility] Comment on above: Performed By: #### C MP, BNP, TSH, TROP #### [facility] [address] [place] [address] Osvaldo Kathy Calcium [Mass/Vol] 9.2 mg/dL Normal 8.4-10.2 [facility] Comment on above: Performed By: #### C MP, BNP, TSH, TROP #### [facility] [address] [place] [phone] Osvaldo Kathy Chloride [Moles/Vol] 103 mmol/L Normal 98-107 [facility] Comment on above: Performed By: #### C MP, BNP, TSH, TROP #### [facility] [address] [place] [address] Osvaldo Kathy CO2 [Moles/Vol] 25.1 mmol/L Normal 22.0-30.0 [facility] Comment on above: Performed By: #### C MP, BNP, TSH, TROP #### [facility] [address] [place] [phone] Osvaldo Kathy Creatinine [Mass/Vol] 0.86 mg/dL Normal 0.52-1.04 [facility] Comment on above: Performed By: #### C MP, BNP, TSH, TROP #### [facility] [address] [place] [phone] Osvaldo Kathy EGFR-AF ICELANDIC >60 Normal >=60 [facility] Comment on above: Performed By: #### C MP, BNP, TSH, TROP #### [facility] [address] [place] [address] Osvaldo Kathy EGFR-NON AF ICELANDIC >60 Normal >=60 [facility] Comment on above: Performed By: #### C MP, BNP, TSH, TROP #### [facility] [address] [place] [address] Osvaldo Kathy Globulin (S) [Mass/Vol] 4.2 g/dL Normal [facility] Comment on above: Performed By: #### C MP, BNP, TSH, TROP #### [facility] [address] [place] [address] Osvaldo Kathy Glucose [Mass/Vol] 85 mg/dL Normal 74-106 [facility] Comment on above: Performed By: #### C MP, BNP, TSH, TROP #### [facility] [address] [place] [address] Osvaldo Kathy Potassium [Moles/Vol] 3.7 mmol/L Normal 3.4-5.0 [facility] Comment on above: Performed By: #### C MP, BNP, TSH, TROP #### [facility] [address] [place] [address] Osvaldo Kathy Protein [Mass/Vol] 8.3 g/dL Critically high 6.1-8.2 [facility] Comment on above: Performed By: #### C MP, BNP, TSH, TROP #### [facility] [address] [place] [address] Osvaldo Kathy Sodium [Moles/Vol] 141 mmol/L Normal 137-145 [facility] Comment on above: Performed By: #### C MP, BNP, TSH, TROP #### [facility] [address] [place] [address] Osvaldo Kathy Urea nitrogen [Mass/Vol] 9.0 mg/dL Normal 7.0-17.0 [facility] Comment on above: Performed By: #### C MP, BNP, TSH, TROP #### [facility] [address] [place] [address] Osvaldo Kathy Urea nitrogen/Creatinine [Mass ratio] 10.5 mg/mg Normal [facility] Comment on above: Performed By: #### C MP, BNP, TSH, TROP #### [facility] [address] [place] [address] Osvaldomisael Chavez PROTIMEon 09-14-2019 INR Coag (PPP) [Relative time] 0.96 {INR} Normal [facility] Comment on above: Performed By: #### P T, PTT #### [facility] [address] [place] [address] Osvaldo Kathy PT Coag (PPP) [Time] PLEASE NOTE: NORMAL RANGE CHANGE 06-18-2014 DUE TO REAGENT LOT CHANGE Normal [facility] Comment on above: Performed By: #### P T, PTT #### [facility] [address] [place] [address] Osvaldo Kathy PT Coag (PPP) [Time] SEE BELOW Normal [facility] Comment on above: Result Comment: LAWANDA RED INR: 2.0 - 3.0 CONDITIONS NOT LISTED BELOW 2.5 - 3.5 FOR PROSTHETIC HEART VALVE REPLACEMENT 2.5 - 3.5 RECURRENT THROMBOSIS Performed By: #### P T, PTT #### [facility] [address] [place] [address] Osvaldo Kathy PT Coag (PPP) [Time] 10.0 s Normal 9.0-11.6 [facility] Comment on above: Performed By: #### P T, PTT #### [facility] [address] [place] [address] Osvaldo Kathy PTTon 09-14-2019 aPTT Coag (Bld) [Time] PLEASE NOTE: NORMAL RANGE CHANGE 08-25-2015 DUE TO REAGENT LOT CHANGE Normal [facility] Comment on above: Performed By: #### P T, PTT #### [facility] [address] [place] [address] Osvaldo Kathy aPTT Coag (Bld) [Time] 26.4 s Normal 22.3-36.2 [facility] Comment on above: Performed By: #### P T, PTT #### [facility] [address] [place] [address] Osvaldo Chavez TROPONIN - Ion 09-14-2019 Troponin I.cardiac [Mass/Vol] SEE BELOW Normal [facility] Comment on above: Result Comment: <0.0 34 ng/ml NEGATIVE 0.034-0.119 INDETERMINATE 0.120 AMI CUT OFF Performed By: #### C MP, BNP, TSH, TROP #### [facility] [address] [place] [address] Osvaldo Chavez Troponin I.cardiac [Mass/Vol] ng/mL Normal <=0.034 [facility] Comment on above: Performed By: #### C MP, BNP, TSH, TROP #### [facility] [address] [place] [address] Osvaldo Chavez TSHon 09-14-2019 TSH Qn 3.598 uIU/mL Normal 0.470-4.68 0 [facility] Comment on above: Performed By: #### C MP, BNP, TSH, TROP #### [facility] [address] [place] [address] Osvaldo Chavez TSH Qn SEE BELOW Normal [facility] Comment on above: Result Comment: <0.3 4 UIU/ml HYPERTHYROID 0.34-5.60 UIU/ml EUTHYROID >5.60 UIU/ml HYPOTHYROID Performed By: #### C MP, BNP, TSH, TROP #### [facility] [address] [place] [address] Osvaldo Chavez XR CHEST 2 Von 09-14-2019 XR CHEST 2 V Patient: PEPE MAGANA Exam Date: 09/14/2019 : 2000 Gender:F Ordering : DR DOV WEINSTEIN . Admission #: [id number] Family : Order #: [id number] CLICK HERE TO VIEW EXAM RADIOLOGY REPORT [...] Leger M.D. on 09/14/2019 at 22:32 Normal [facility] C Urineon 12-05-2017 C Urine Final Report: 1,000 cfu/ml Streptococcus agalactiae (Group B) in Moderate Mixed skin contaminants Normal [facility] Comment on above: Performed By: #### 2 [id number] ####HEATHER AxnXbhs9753 [place] [address] Acetamnphn Lvlon 11-30-2017 Acetaminophen mass conc <10 Normal 0-15 [facility] Comment on above: Result Comment: Tyle nol - Therapeutic 10-30 ug/ml Toxic 4 hr. Post ingestion >150 ug/ml Toxic 8hr Post ingestion >75 ug/ml Toxic 12hr. Post ingestion >40 ug/ml Performed By: #### 2 [id number] ####HEATHERMiranda ChavezFwzSpoj5238 [place] [address] Auto Diffon 11-30-2017 Basophils Auto #/vol (Bld) 0.0 E3/mcL Normal 0.0-0.2 [facility] Comment on above: Order Comment: Order Added by Discern Expert. Performed By: #### 2 657019 ####HEATHER BwuTnlh8578 [place] [address] Basophils/100 WBC Auto (Bld) 0.3 % Normal 0.0-2.0 [facility] Comment on above: Order Comment: Order Added by Discern Expert. Performed By: #### 2 267805 ####HEATHER QmaIqlp5221 [place] [address] Eos Absolute 0.7 E3/mcL Normal 0.0-0.7 [facility] Comment on above: Order Comment: Order Added by Discern Expert. Performed By: #### 2 970060 ####HEATHERMiranda ChavezSixXwgz6821 [place] [address] Eosinophils/100 leukocytes 6.1 % Normal 0.0-11.0 [facility] Comment on above: Order Comment: Order Added by Discern Expert. Performed By: #### 2 753882 ####HEATHER ChavezTlwUqau6264 [place] [address] Lymphocytes 2.9 E3/mcL Normal 1.2-3.4 [facility] Comment on above: Order Comment: Order Added by Discern Expert. Performed By: #### 2 957026 ####HEATHER ChavezOiaTrzq2651 [place] [address] Lymphocytes/100 leukocytes 27.4 % Normal 20.0-55.0 [facility] Comment on above: Order Comment: Order Added by Discern Expert. Performed By: #### 2 896302 ####HEATHER ChavezXpdUkud8245 [place] [address] [place] Absolute 0.8 E3/mcL High 0.0-0.7 [facility] Comment on above: Order Comment: Order Added by Discern Expert. Performed By: #### 2 909764 ####HEATHER ChavezUhvQfck7625 [place] [address] Monocytes/100 leukocytes 7.5 % Normal 0.0-10.0 [facility] Comment on above: Order Comment: Order Added by Discern Expert. Performed By: #### 2 312281 ####HEATHER ChavezUayAthm3793 [place] [address] Neutro Absolute 6.3 E3/mcL Normal 1.4-6.5 [facility] Comment on above: Order Comment: Order Added by Discern Expert. Performed By: #### 2 393539 ####HEATHER ChavezYonNkxz9155 [place] [address] Neutro Auto 58.7 % Normal 37.0-75.0 [facility] Comment on above: Order Comment: Order Added by Discern Expert. Performed By: #### 2 485417 ####HEATHER ChavezAfhJtpa7488 [place] [address] BMPon 11-30-2017 BUN/Creatinine Ratio 15.0 ratio Normal 5.4-30.0 [facility] Comment on above: Performed By: #### 2 831224 ####HEATHER ChavezZumMsqx6242 [place] [address] Creatinine 0.8 mg/dL Normal 0.6-1.3 [facility] Comment on above: Performed By: #### 2 096672 ####HEATHER MobYfvv9340 [place] [address] Urea nitrogen 12 mg/dL Normal 7-18 [facility] Comment on above: Performed By: #### 2 314544 ####HEATHER VuqOunv9532 [place] [address] Calcium 9.0 mg/dL Normal 8.4-10.2 [facility] Comment on above: Performed By: #### 2 413855 ####HEATHER GfgRocp8686 [place] [address] Chloride 105 mmol/L Normal 98-107 [facility] Comment on above: Performed By: #### 2 752429 ####HEATHER HyzUohv2598 [place] [address] CO2 22.3 mmol/L Low 24.0-30.0 [facility] Comment on above: Performed By: #### 2 399903 ####HEATHER KehDbeb9787 [place] [address] Glucose mass conc 116 mg/dL High 70-99 [facility] Comment on above: Performed By: #### 2 768330 ####HEATHER OayMrpc8720 [place] [address] Potassium molar conc 3.7 mmol/L Normal 3.5-5.1 [facility] Comment on above: Performed By: #### 2 660366 ####HEATHER KovGrqu2594 [place] [address] Sodium 137 mmol/L Normal 136-145 [facility] Comment on above: Performed By: #### 2 397657 ####HEATHER YnjTgty3102 [place] [address] CBC w/ Auto Diffon 8 Erythrocyte distribution width Auto Ratio (RBC) 13.6 % Normal 11.5-14.5 [facility] Comment on above: Performed By: #### 2 562756 ####HEATHER ZmcOnsp5908 [place] [address] Erythrocytes (RBC) 5.19 E6/mcL Normal 3.90-5.40 [facility] Comment on above: Performed By: #### 2 421517 ####HEATHER Calderon1025 [place] [address] Hematocrit (HCT) 44.4 % Normal 36.0-48.0 [facility] Comment on above: Performed By: #### 2 383459 ####HEATHER Calderon[address] [place] [address] Hemoglobin mass conc (Bld) 15.3 g/dL Normal 12.0-16.0 [facility] Comment on above: Performed By: #### 2 786481 ####HEATHER Calderon[address] [place] [address]65605 MCH 29.5 pg Normal 27.0-31.0 [facility] Comment on above: Performed By: #### 2 784999 ####HEATHER Calderon10[address] [place] [address] MCHC mass conc (RBC) 34.5 g/dL Normal 33.0-37.0 [facility] Comment on above: Performed By: #### 2 128284 ####HEATHER Calderon[address] [place] [id number] MCV 85.5 fL Normal 78.0-100.0 [facility] Comment on above: Performed By: #### 2 677743 ####HEATHER Calderon[address] [place] [address] Platelet mean volume (PMV) 7.7 fL Normal 7.4-11.0 [facility] Comment on above: Performed By: #### 2 296757 ####HEATHER GruPkjt6582 [place] [address] Platelets 298 E3/mcL Normal 130-400 [facility] Comment on above: Performed By: #### 2 950537 ####HEATHER Calderon[address] [place] [address] WBC (Leukocytes) 10.8 E3/mcL Normal 3.6-11.0 [facility] Comment on above: Performed By: #### 2 900784 ####HEATHER Calderon[address] [place] [address] Ethanolon 11-30-2017 Ethanol Lvl <5 Normal 0-15 [facility] Comment on above: Result Comment: SAMP LES WITH CONCENTRATIONS <15 MG/DL SHOULD BEINTERPRETED NEGATIVE. FOR MEDICAL USE ONLY Performed By: #### 2 558979 ####HEATHER Calderon[address] [place] [address] Hep Func Panelon 11-30-2017 Alanine aminotransferase (ALT) 76 Int._Unit/L High 10-40 [facility] Comment on above: Performed By: #### 2 340196 ####HEATHER Calderon[address] [place] [address] Albumin 3.8 g/dL Normal 3.2-5.0 [facility] Comment on above: Performed By: #### 2 478883 ####HEATHER Calderon[address] [place] [address] Albumin/Globulin Ratio 1.1 {ratio} Normal 1.1-1.9 [facility] Comment on above: Performed By: #### 2 174616 ####HEATHER Calderon[address] [place] [address] Alk Phos 83 Int._Unit/L Normal 42-121 [facility] Comment on above: Performed By: #### 2 373027 ####HEATHER Calderon[address] [place] [address] Aspartate aminotransferase (AST) 37 Int._Unit/L Normal 10-42 [facility] Comment on above: Performed By: #### 2 674113 ####HEATHER Calderon[address] [place] [address] Bili Direct <.10 Normal .00-.20 [facility] Comment on above: Performed By: #### 2 676887 ####HEATHER [address]on[address] [place] [address] Bili Indirect >0.2 Normal [facility] Comment on above: Result Comment: No e stablished ranges available for the Indirect Biliruben. Performed By: #### 2 099745 ####HEATHER Calderon[address] [place] [address] Bili Total 0.3 mg/dL Normal 0.2-1.0 [facility] Comment on above: Performed By: #### 2 538254 ####HEATHER [address]on[address] [place] [address] Globulin 3.4 g/dL Normal 2.0-4.0 [facility] Comment on above: Performed By: #### 2 577559 ####HEATHER TbbRpoh3322 [place] [address] Protein 7.2 g/dL Normal 6.4-8.3 [facility] Comment on above: Performed By: #### 2 851038 ####HEATHER WfsZsuu9976 [place] [address] Salicylateon 11-30-2017 Salicylate Lvl <4 Low 15-30 [facility] Comment on above: Performed By: #### 2 663623 ####HEATHER HauCkkt8925 [place] [address] U BhCG Qlton 11-30-2017 HCG.beta subunit Qn Negative Normal Neg [facility] Comment on above: Performed By: #### 2 991488 ####HEATHER JfdKmim5174 [place] [address] U Drug Screenon 11-30-2017 U Amph Scr Negative Normal [facility] Comment on above: Result Comment: Resu lts for medical use only. Confirmation of positive results will be done when requested. Specimens are kept for one week. Performed By: #### 2 168341 ####HEATHER BreMdrk2992 [place] [address] U Daniella Scr Negative [facility] Comment on above: Performed By: #### 2 275310 ####HEATHER DogWnsz0975 [place] [address] U Benzodia Scr Negative Normal [facility] Comment on above: Performed By: #### 2 035528 ####HEATHER UpeDaww[address] [place] [address] U Cannab Scr Negative Normal [facility] Comment on above: Performed By: #### 2 316182 ####HEATHER AmqDwsg1343 [place] [address] U Cocaine Scr Negative [facility] Comment on above: Performed By: #### 2 895483 ####HEATHER UgeTows3129 [place] [address] U Opiate Scr Negative Normal [facility] Comment on above: Performed By: #### 2 408207 ####HEATHER NknNqwm0577 [place] [address] U PCP Scr Negative Normal [facility] Comment on above: Performed By: #### 2 673315 ####HEATHER PfcPblf3512 [place] [address] UA Completeon 11-30-2017 UA Blood Negative Normal Negative [facility] Comment on above: Performed By: #### 2 131739 ####HEATHERMiranda CalderonSwrQzas0275 [place] [address] UA Bacteria Trace Abnormal None [facility] Comment on above: Performed By: #### 2 205978 ####HEATHERMiranda CalderonTokCzyl4803 [place] [address] UA Clarity SltCloudy Abnormal Clear [facility] Comment on above: Performed By: #### 2 864345 ####HEATHERMiranda CalderonUffLszd4313 [place] [address] UA Leuk Est Negative Normal Negative [facility] Comment on above: Performed By: #### 2 672233 ####HEATHERMiranda CalderonSrnRilq2967 [place] [address] UA Mucous Trace Abnormal Trace [facility] Comment on above: Performed By: #### 2 358264 ####HEATHERMiranda CalderonMhoRbgt4502 [place] [address] UA Nitrite Negative Normal Negative [facility] Comment on above: Performed By: #### 2 935921 ####HEATHERMiranda CalderonTglHpec3686 [place] [address] UA pH 6.0 Normal 4.6-8.0 [facility] Comment on above: Performed By: #### 2 743610 ####HEATHERMiranda ChavezKfxKatr0315 [place] [address] UA Protein Negative Normal Negative [facility] Comment on above: Performed By: #### 2 441504 ####HEATHERMiranda ChavezPdcFwer1581 [place] [address] UA Spec Grav 1.021 Normal 1.003-1.03 0 [facility] Comment on above: Performed By: #### 2 319674 ####HEATHERMiranda CalderonZboDkxl3464 [place] [address] UA Squam Epithelial 5-10 Abnormal 0-5 [facility] Comment on above: Performed By: #### 2 602030 ####HEATHER PqpQesc5282 [place] [address] UA Urobilinogen Negative Normal [facility] Comment on above: Performed By: #### 2 876477 ####HEATHER ChavezDotHpkr9843 [place] [address] UA WBC 0-5 Normal 0-5 [facility] Comment on above: Performed By: #### 2 566343 ####HEATHER BumJdmd4557 [place] [address] Urine, color Yellow Normal Yellow [facility] Comment on above: Performed By: #### 2 235041 ####HEATHER AwrGnwr5005 [place] [address] Urine, glucose Negative Normal Negative [facility] Comment on above: Performed By: #### 2 233938 ####HEATHERMiranda ChavezDefAzyl4031 [place] [address] Urine, ketones presence Negative Normal Negative [facility] Comment on above: Performed By: #### 2 676931 ####HEATHER DumCvuy2307 [place] [address] Urine, urobilinogen Negative Normal Negative [facility] Comment on above: Performed By: #### 2 540633 ####HEATHER RsrGlhn0843 [place] [address] eGFRon 11-30-2017 eGFR (non-black) mL/min/{1.73_m2} Normal [facility] Comment on above: Order Comment: Order added by Discern Expert. Performed By: #### 2 563348 ####HEATHER QiePdpm9362 [place] [address] C Urineon 11-28-2017 C Urine Final Report: Few Mi xed skin contaminants Normal [facility] Comment on above: Performed By: #### 2 281787 ####HEATHER WvrFwyx[address] [place] 8465605 Acetamnphn Lvlon 11-27-2017 Acetaminophen mass conc <10 Normal 0-15 [facility] Comment on above: Result Comment: Tyle nol - Therapeutic 10-30 ug/ml Toxic 4 hr. Post ingestion >150 ug/ml Toxic 8hr Post ingestion >75 ug/ml Toxic 12hr. Post ingestion >40 ug/ml Performed By: #### 2 048921 ####HEATHER ChavezIfkJshw6052 [place] [address] Auto Diffon 11-27-2017 Basophils Auto #/vol (Bld) 0.0 E3/mcL Normal 0.0-0.2 [facility] Comment on above: Order Comment: Order Added by Discern Expert. Performed By: #### 2 870585 ####HEATHER ChavezOcjGgjg7192 [place] [address] Basophils/100 WBC Auto (Bld) 0.3 % Normal 0.0-2.0 [facility] Comment on above: Order Comment: Order Added by Discern Expert. Performed By: #### 2 249744 ####HEATHER ChavezOyhCule5154 [place] [address] Eos Absolute 0.6 E3/mcL Normal 0.0-0.7 [facility] Comment on above: Order Comment: Order Added by Discern Expert. Performed By: #### 2 212258 ####HEATHER XppYaaj8479 [place] [address] Eosinophils/100 leukocytes 5.8 % Normal 0.0-11.0 [facility] Comment on above: Order Comment: Order Added by Discern Expert. Performed By: #### 2 642413 ####HEATHER ChavezZbiKqav6882 [place] [address] Lymphocytes 2.7 E3/mcL Normal 1.2-3.4 [facility] Comment on above: Order Comment: Order Added by Discern Expert. Performed By: #### 2 877481 ####HEATHER EfhTupk0319 [place] [address] Lymphocytes/100 leukocytes 26.1 % Normal 20.0-55.0 [facility] Comment on above: Order Comment: Order Added by Discern Expert. Performed By: #### 2 715805 ####HEATHER ChavezBwwDegw6242 [place] [address] [place] Absolute 0.9 E3/mcL High 0.0-0.7 [facility] Comment on above: Order Comment: Order Added by Discern Expert. Performed By: #### 2 129724 ####HEATHER Benítezo[address]25 [place] [address] Monocytes/100 leukocytes 9.0 % Normal 0.0-10.0 [facility] Comment on above: Order Comment: Order Added by Discern Expert. Performed By: #### 2 392173 ####HEATHER Benítezo[address]25 [place] [address] Neutro Absolute 6.1 E3/mcL Normal 1.4-6.5 [facility] Comment on above: Order Comment: Order Added by Discern Expert. Performed By: #### 2 022857 ####HEATHER Benítezo[address]25 [place] [address] Neutro Auto 58.8 % Normal 37.0-75.0 [facility] Comment on above: Order Comment: Order Added by Discern Expert. Performed By: #### 2 606905 ####HEATHER Benítezo1025 [place] [address] BMPon 11-27-2017 BUN/Creatinine Ratio 15.0 ratio Normal 5.4-30.0 [facility] Comment on above: Performed By: #### 2 509726 ####HEATHER Benítezo[address]25 [place] [address] Creatinine 0.8 mg/dL Normal 0.6-1.3 [facility] Comment on above: Performed By: #### 2 112107 ####HEATHER Benítezo[address] [place] [address] Urea nitrogen 12 mg/dL Normal 7-18 [facility] Comment on above: Performed By: #### 2 005423 ####HEATHER ChavezFvkHwvp9792 [place] [address] Calcium 8.5 mg/dL Normal 8.4-10.2 [facility] Comment on above: Performed By: #### 2 704248 ####HEATHER ChavezHdwNerq9001 [place] [address] Chloride 108 mmol/L High 98-107 [facility] Comment on above: Performed By: #### 2 563041 ####HEATHER ChavezKsvDbcw0042 [place] [address] CO2 22.3 mmol/L Low 24.0-30.0 [facility] Comment on above: Performed By: #### 2 386783 ####HEATHER Benítezo[address] [place] [address] Glucose mass conc 82 mg/dL Normal 70-99 [facility] Comment on above: Performed By: #### 2 718826 ####HEATHER ChavezPgyKehe0900 [place] [address] Potassium molar conc 3.7 mmol/L Normal 3.5-5.1 [facility] Comment on above: Performed By: #### 2 425975 ####HEATHER Benítezo[address] [place] [address] Sodium 140 mmol/L Normal 136-145 [facility] Comment on above: Performed By: #### 2 773055 ####HEATHER Benítezo[address] [place] [address] CBC w/ Auto Diffon Erythrocyte distribution width Auto Ratio (RBC) 13.3 % Normal 11.5-14.5 [facility] Comment on above: Performed By: #### 2 905996 ####HEATHER Benítezo[address] [place] [address] Erythrocytes (RBC) 4.88 E6/mcL Normal 3.90-5.40 [facility] Comment on above: Performed By: #### 2 538329 ####HEATHER WwsZkha7290 [place] [address] Hematocrit (HCT) 42.2 % Normal 36.0-48.0 [facility] Comment on above: Performed By: #### 2 501327 ####HEATHER ChavezDsaDzmv4581 [place] [address] Hemoglobin mass conc (Bld) 14.2 g/dL Normal 12.0-16.0 [facility] Comment on above: Performed By: #### 2 221357 ####HEATHER BmyQbvg3445 [place] [address] MCH 29.1 pg Normal 27.0-31.0 [facility] Comment on above: Performed By: #### 2 407109 ####HEATHER Benítezo[address] [place] [address] MCHC mass conc (RBC) 33.7 g/dL Normal 33.0-37.0 [facility] Comment on above: Performed By: #### 2 170134 ####HEATHER Benítezo[address] [place] [address] MCV 86.4 fL Normal 78.0-100.0 [facility] Comment on above: Performed By: #### 2 046407 ####HEATHER Benítezo[address] [place] [address] Platelet mean volume (PMV) 8.0 fL Normal 7.4-11.0 [facility] Comment on above: Performed By: #### 2 975253 ####HEATHER Benítezo[address] [place] [address] Platelets 250 E3/mcL Normal 130-400 [facility] Comment on above: Performed By: #### 2 878028 ####HEATHER Benítezo[address] [place] [address] WBC (Leukocytes) 10.4 E3/mcL Normal 3.6-11.0 [facility] Comment on above: Performed By: #### 2 750948 ####HEATHER Benítezo[address] [place] [address] Ethanolon 11-27-2017 Ethanol Lvl <5 Normal 0-15 [facility] Comment on above: Result Comment: SAMP LES WITH CONCENTRATIONS <15 MG/DL SHOULD BEINTERPRETED NEGATIVE. FOR MEDICAL USE ONLY Performed By: #### 2 632652 ####HEATHER Benítezo[address] [place] [address] Hep Func Panelon 11-27-2017 Alanine aminotransferase (ALT) 59 Int._Unit/L High 10-40 [facility] Comment on above: Performed By: #### 2 467764 ####HEATHER Benítezo[address] [place] [address] Albumin 3.5 g/dL Normal 3.2-5.0 [facility] Comment on above: Performed By: #### 2 167290 ####HEATHER Benítezo[address] [place] [address] Albumin/Globulin Ratio 1.2 {ratio} Normal 1.1-1.9 [facility] Comment on above: Performed By: #### 2 197359 ####HEATHER Benítezo[address] [place] 8465605 Alk Phos 80 Int._Unit/L Normal 42-121 [facility] Comment on above: Performed By: #### 2 367848 ####HEATHER Benítezo10[address] [place] 8465605 Aspartate aminotransferase (AST) 44 Int._Unit/L High 10-42 [facility] Comment on above: Performed By: #### 2 027554 ####HEATHER Benítezo[address]25 [place] [address] Bili Direct <.10 Normal .00-.20 [facility] Comment on above: Performed By: #### 2 605259 ####HEATHER Benítezo[address] [place] [address] Bili Indirect >0.1 Normal [facility] Comment on above: Result Comment: No e stablished ranges available for the Indirect Biliruben. Performed By: #### 2 440158 ####HEATHER ChavezNqnAlge5274 [place] 8465605 Bili Total 0.2 mg/dL Normal 0.2-1.0 [facility] Comment on above: Performed By: #### 2 342988 ####HEATHER ChavezYksDbkh7941 [place] [address] Globulin 2.9 g/dL Normal 2.0-4.0 [facility] Comment on above: Performed By: #### 2 648713 ####HEATHER ChavezIdvNecc7300 [place] [address] Protein 6.4 g/dL Normal 6.4-8.3 [facility] Comment on above: Performed By: #### 2 511439 ####HEATHER PrrZmih3869 [place] [address] Salicylateon 11-27-2017 Salicylate Lvl <4 Low 15-30 [facility] Comment on above: Performed By: #### 2 823922 ####HEATHER ChavezJuhTcdf0467 [place] [address] TSHon 11-27-2017 Thyroid stimulating hormone (TSH) 4.96 mIU/m Normal 0.30-5.60 [facility] Comment on above: Performed By: #### 2 861869 ####HEATHER ChavezXodUxlg4550 [place] [address] U Drug Screenon 11-27-2017 U Amph Scr Negative Normal [facility] Comment on above: Result Comment: Resu lts for medical use only. Confirmation of positive results will be done when requested. Specimens are kept for one week. Performed By: #### 2 593515 ####HEATHER ChavezKjdOgil0893 [place] [address] U Daniella Scr Negative Normal [facility] Comment on above: Performed By: #### 2 969096 ####HEATHER ChavezRlfVsip4872 [place] [address] U Benzodia Scr Negative Normal [facility] Comment on above: Performed By: #### 2 393396 ####HEATHER [address] [place] [address] U Cannab Scr Negative Normal [facility] Comment on above: Performed By: #### 2 [id number] ####HEATHER ChavezBexEtzc[address] [place] [address] U Cocaine Scr Negative [facility] Comment on above: Performed By: #### 2 855630 ####HEATHER ChavezMhzBhxs2225 [place] [address] U Opiate Scr Negative Normal [facility] Comment on above: Performed By: #### 2 290252 ####HEATHER ChavezGdrJkgi7583 [place] [address] U PCP Scr Negative Normal [facility] Comment on above: Performed By: #### 2 787893 ####HEATHER ChavezMcqOtmj4547 [place] [address] UA Completeon 11-27-2017 UA Blood Negative Normal Negative [facility] Comment on above: Performed By: #### 2 192646 ####HEATHER ChavezYhdDqpv3006 [place] [address] UA Ascorbic Acid 40 mg/dL High <=19 [facility] Comment on above: Performed By: #### 2 684684 ####HEATHER KfpMzyh7993 [place] [address] UA Bacteria Trace Abnormal None [facility] Comment on above: Performed By: #### 2 533281 ####HEATHER CbfIyqu8066 [place] [address] UA Clarity SltCloudy Abnormal Clear [facility] Comment on above: Performed By: #### 2 608537 ####HEATHER UfjEfzi9555 [place] [address] UA Leuk Est Negative Normal Negative [facility] Comment on above: Performed By: #### 2 642355 ####HEATHER BkjPaii6885 [place] [address] UA Mucous Trace Abnormal Trace [facility] Comment on above: Performed By: #### 2 466050 ####HEATHER DuhParr6[address] [place] [address] UA Nitrite Negative Normal Negative [facility] Comment on above: Performed By: #### 2 357706 ####HEATHER PvvSamj1783 [place] [address] UA pH 5.0 Normal 4.6-8.0 [facility] Comment on above: Performed By: #### 2 726136 ####HEATHER FftNquj6081 [place] [address] UA Protein Negative Normal Negative [facility] Comment on above: Performed By: #### 2 977338 ####HEATHER MouMqko8851 [place] [address] UA Spec Grav 1.023 Normal 1.003-1.03 0 [facility] Comment on above: Performed By: #### 2 460567 ####HEATHER MciJssn3588 [place] [address] UA Squam Epithelial 10-20 Abnormal 0-5 [facility] Comment on above: Performed By: #### 2 092782 ####HEATHER FvsHeze0489 [place] [address] UA Urobilinogen Negative Normal [facility] Comment on above: Performed By: #### 2 600124 ####HEATHER Benítezo[address] [place] [address] UA WBC 0-5 Normal 0-5 [facility] Comment on above: Performed By: #### 2 389043 ####HEATHER [address] [place] [address] Urine, color Yellow Normal Yellow [facility] Comment on above: Performed By: #### 2 443617 ####HEATHER [address] [place] [address] Urine, erythrocytes 0-3 Normal 0-3 [facility] Comment on above: Performed By: #### 2 537942 ####HEATHER [address] [place] [address] Urine, glucose Negative Normal Negative [facility] Comment on above: Performed By: #### 2 805755 ####HEATHER [address] [place] [address] Urine, ketones presence Negative Normal Negative [facility] Comment on above: Performed By: #### 2 305957 ####HEATHER [address] [place] [address] Urine, urobilinogen Negative Normal Negative [facility] Comment on above: Performed By: #### 2 162046 ####HEATHER Bení[address]zo[address] [place] [id number] eGFRon 11-27-2017 eGFR (non-black) mL/min/{1.73_m2} Normal [facility] Comment on above: Order Comment: Order Added by Discern Expert. Performed By: #### 2 [id number] ####HEATHER [address] [place] [address] Culture, Urineon 11-25-2017 Culture, Urine OR DERED [...] No further workup to be done. Normal [facility] Urinalysis, reflex to micros copicon 11-25-2017 Bilirubin Ql (U) Negative Normal Negative [facility] Urine, clarity TURBID Abnormal Clear [facility] Urine, color Yellow Normal Straw/[place] [facility] Urine, glucose presence Negative Normal Negative [facility] Urine, hemoglobin presence Negative Normal Negative [facility] Urine, ketones presence Negative Normal Negative [facility] Urine, leukocyte esterase presence LARGE Abnormal Negative [facility] Urine, nitrite presence Negative Normal Negative [facility] Urine, pH 6.0 [pH] Normal 5.0-9.0 [facility] Urine, protein presence Negative Normal Negative [facility] Urine, specific gravity 1.030 Normal 1.005-1.03 [facility] Urine, urobilinogen 0.2 {Gretel'U}/dL Normal < 2.0 [facility] Urine Microscopicon 11-25-19 18 Urine Amorphous 4+ Normal [facility] Urine, bacteria in sediment Few Normal [facility] Urine, crystals in sediment 1+ Ca. Oxalate Normal [facility] Urine, epithelial cells presence in sediment 5-10 Normal [facility] Urine, erythrocytes 0-2 Normal 0-2 [facility] Urine, leukocytes 10-20 Abnormal 0-5 [facility] Serum HCG Qualitativeon 11-02 HCG.beta subunit Qn Negative Normal [facility] Acetamnphn Lvlon 11-22-2017 Acetaminophen mass conc <10 Normal 0-15 [facility] Comment on above: Result Comment: Tyle nol - Therapeutic 10-30 ug/ml Toxic 4 hr. Post ingestion >150 ug/ml Toxic 8hr Post ingestion >75 ug/ml Toxic 12hr. Post ingestion >40 ug/ml Performed By: #### 2 [id number] ####HEATHER JrlKfmu[address] [place] [address] Auto Diffon 11-22-2017 Basophils Auto #/vol (Bld) 0.0 E3/mcL Normal 0.0-0.2 [facility] Comment on above: Order Comment: Order Added by Discern Expert. Performed By: #### 2 241873 ####HEATHER DhoWagr[address] [place] [address] Basophils/100 WBC Auto (Bld) 0.4 % Normal 0.0-2.0 [facility] Comment on above: Order Comment: Order Added by Discern Expert. Performed By: #### 2 948245 ####HEATHER RogIkuv1695 [place] [address] Eos Absolute 0.3 E3/mcL Normal 0.0-0.7 [facility] Comment on above: Order Comment: Order Added by Discern Expert. Performed By: #### 2 608789 ####HEATHER MqfDkdi6695 [place] [address] Eosinophils/100 leukocytes 3.8 % Normal 0.0-11.0 [facility] Comment on above: Order Comment: Order Added by Discern Expert. Performed By: #### 2 185980 ####HEATHER ExhAkwf[address]406 [place] [address] Lymphocytes 2.5 E3/mcL Normal 1.2-3.4 [facility] Comment on above: Order Comment: Order Added by Discern Expert. Performed By: #### 2 633358 ####HEATHER WobVazt57[address] [place] [address] Lymphocytes/100 leukocytes 36.9 % Normal 20.0-55.0 [facility] Comment on above: Order Comment: Order Added by Discern Expert. Performed By: #### 2 656999 ####HEATHER UjeXdrr4533 [place] [address] [place] Absolute 0.5 E3/mcL Normal 0.0-0.7 [facility] Comment on above: Order Comment: Order Added by Discern Expert. Performed By: #### 2 901011 ####HEATHER XxwUosh8803 [place] [address] Monocytes/100 leukocytes 7.1 % Normal 0.0-10.0 [facility] Comment on above: Order Comment: Order Added by Discern Expert. Performed By: #### 2 395146 ####HEATHER G[address]gWamm[address] [place] [address] Neutro Absolute 3.5 E3/mcL Normal 1.4-6.5 [facility] Comment on above: Order Comment: Order Added by Discern Expert. Performed By: #### 2 330798 ####HEATHER [address] [place] [address] Neutro Auto 51.8 % Normal 37.0-75.0 [facility] Comment on above: Order Comment: Order Added by Discern Expert. Performed By: #### 2 882154 ####HEATHER [address] [place] [address] BMPon 11-22-2017 BUN/Creatinine Ratio 12.2 ratio Normal 5.4-30.0 [facility] Comment on above: Performed By: #### 2 741040 ####HEATHER Calderon[address] [place] [address] Creatinine 0.9 mg/dL Normal 0.6-1.3 [facility] Comment on above: Performed By: #### 2 385433 ####HEATHER Calderon[address] [place] [address] Urea nitrogen 11 mg/dL Normal 7-18 [facility] Comment on above: Performed By: #### 2 219378 ####HEATHER [address]PvqBauq[address] [place] [address] Calcium 9.0 mg/dL Normal 8.4-10.2 [facility] Comment on above: Performed By: #### 2 323975 ####HEATHER [address]on[address] [place] [address] Chloride 99 mmol/L Normal 98-107 [facility] Comment on above: Performed By: #### 2 231601 ####HEATHER ChavezLmqAmmn36[address] [place] [address] CO2 27.2 mmol/L Normal 24.0-30.0 [facility] Comment on above: Performed By: #### 2 874103 ####HEATHER [address] [place] [address] Glucose mass conc 137 mg/dL High 70-99 [facility] Comment on above: Performed By: #### 2 208302 ####HEATHER [address] [place] [address] Potassium molar conc 3.2 mmol/L Low 3.5-5.1 [facility] Comment on above: Performed By: #### 2 924800 ####HEATHER ZjeSqaf4215 [place] [address] Sodium 139 mmol/L Normal 136-145 [facility] Comment on above: Performed By: #### 2 833862 ####HEATHER [address]GksMknz[address] [place] [address] CBC w/ Auto Diffon 8 Erythrocyte distribution width Auto Ratio (RBC) 13.4 % Normal 11.5-14.5 [facility] Comment on above: Performed By: #### 2 841184 ####HEATHER [address]JzkVgas[address] [place] [address] Erythrocytes (RBC) 5.08 E6/mcL Normal 3.90-5.40 [facility] Comment on above: Performed By: #### 2 255058 ####HEATHER [address] [place] [address] Hematocrit (HCT) 44.0 % Normal 36.0-48.0 [facility] Comment on above: Performed By: #### 2 199161 ####HEATHER [address]VwzVpda[address] [place] [address] Hemoglobin mass conc (Bld) 15.1 g/dL Normal 12.0-16.0 [facility] Comment on above: Performed By: #### 2 796596 ####HEATHER LmzOgkl5063 [place] [address] MCH 29.7 pg Normal 27.0-31.0 [facility] Comment on above: Performed By: #### 2 955734 ####HEATHER ChavezKlrYkiu[address]158 [place] [address] MCHC mass conc (RBC) 34.3 g/dL Normal 33.0-37.0 [facility] Comment on above: Performed By: #### 2 817679 ####HEATHER [address]UnlVery[address] [place] [address] MCV 86.5 fL Normal 78.0-100.0 [facility] Comment on above: Performed By: #### 2 797277 ####HEATHER ChavezPtoTasq2431 [place] [address] Platelet mean volume (PMV) 8.1 fL Normal 7.4-11.0 [facility] Comment on above: Performed By: #### 2 698011 ####HEATHER [address] [place] [address] Platelets 216 E3/mcL Normal 130-400 [facility] Comment on above: Performed By: #### 2 356180 ####HEATHER [address] [place] [address] WBC (Leukocytes) 6.7 E3/mcL Normal 3.6-11.0 [facility] Comment on above: Performed By: #### 2 202751 ####HEATHER [address] [place] [address] Ethanolon 11-22-2017 Ethanol Lvl <5 Normal 0-15 [facility] Comment on above: Result Comment: SAMP LES WITH CONCENTRATIONS <15 MG/DL SHOULD BEINTERPRETED NEGATIVE. FOR MEDICAL USE ONLY Performed By: #### 2 525019 ####HEATHER Pns[address]aqo[address] [place] [address] Hep Func Panelon 11-22-2017 Alanine aminotransferase (ALT) 33 Int._Unit/L Normal 10-40 [facility] Comment on above: Performed By: #### 2 045359 ####HEATHER Ch[address]IdgSavt[address]10 [place] [address] Albumin 3.8 g/dL Normal 3.2-5.0 [facility] Comment on above: Performed By: #### 2 400723 ####HEATHER VwzClzi8110 [place] [address] Albumin/Globulin Ratio 1.3 {ratio} Normal 1.1-1.9 [facility] Comment on above: Performed By: #### 2 504981 ####HEATHER DcqXsmw0960 [place] [address] Alk Phos 81 Int._Unit/L Normal 42-121 [facility] Comment on above: Performed By: #### 2 512258 ####HEATHER XhhUrwd0053 [place] [address] Aspartate aminotransferase (AST) 28 Int._Unit/L Normal 10-42 [facility] Comment on above: Performed By: #### 2 095999 ####HEATHER ChavezRlfFkvn0251 [place] [address] Bili Direct <.10 Normal .00-.20 [facility] Comment on above: Performed By: #### 2 148352 ####HEATHER [address]KqvZflc[address] [place] [address] Bili Indirect >0.4 Normal [facility] Comment on above: Result Comment: No e stablished ranges available for the Indirect Biliruben. Performed By: #### 2 203348 ####HEATHER [address]QikCglq2042 [place] [address] Bili Total 0.5 mg/dL Normal 0.2-1.0 [facility] Comment on above: Performed By: #### 2 948827 ####HEATHER Calderon[address]25 [place] [address] Globulin 3.0 g/dL Normal 2.0-4.0 [facility] Comment on above: Performed By: #### 2 862120 ####HEATHER [address]avezSxvSgfw8403 [place] [address] Protein 6.8 g/dL Normal 6.4-8.3 [facility] Comment on above: Performed By: #### 2 159971 ####HEATHER [address]ElbBody[address] [place] [address] Salicylateon 11-22-2017 Salicylate Lvl <4 Low 15-30 [facility] Comment on above: Performed By: #### 2 259050 ####HEATHER [address]JbcFoqy[address] [place] [address] TSHon 11-22-2017 Thyroid stimulating hormone (TSH) 1.80 mIU/m Normal 0.30-5.60 [facility] Comment on above: Performed By: #### 2 082236 ####HEATHER Ch[address]VecTyro[address]37 [place] [address] U Drug Screenon 11-22-2017 U Amph Scr Negative Normal [facility] Comment on above: Result Comment: Resu lts for medical use only. Confirmation of positive results will be done when requested. Specimens are kept for one week. Performed By: #### 2 639401 ####HEATHER JylUolv9344 [place] [address] U Daniella Scr Negative Normal [facility] Comment on above: Performed By: #### 2 590229 ####HEATHER EgxTnui0105 [place] [address] U Benzodia Scr Negative Normal [facility] Comment on above: Performed By: #### 2 520675 ####HEATHER ZkgAsyk2947 [place] [address] U Cannab Scr Negative Normal [facility] Comment on above: Performed By: #### 2 107802 ####HEATHER DlpVyed1735 [place] [address] U Cocaine Scr Negative Normal [facility] Comment on above: Performed By: #### 2 789473 ####HEATHER KplKckp7491 [place] [address] U Opiate Scr Negative Normal [facility] Comment on above: Performed By: #### 2 340858 ####HEATHER BffTpoi9517 [place] [address] U PCP Scr Negative Normal [facility] Comment on above: Performed By: #### 2 282015 ####HEATHER AzlFfys6588 [place] [address] UA Completeon 11-22-2017 UA Blood Negative Normal Negative [facility] Comment on above: Performed By: #### 8 0691006 ####HEATHER Urinalysis Automated Hmubjzghre4994 [place] [address] UA Bacteria Trace Abnormal None [facility] Comment on above: Performed By: #### 8 9616066 ####HEATHER Urinalysis Automated Qvlqbbrqtb5455 [place] [address] UA Clarity SltCloudy Abnormal Clear [facility] Comment on above: Performed By: #### 8 3919195 ####HEATHER Urinalysis Automated [address]zwifbslhn4768 [place] [address] UA Leuk Est 1+ Abnormal Negative [facility] Comment on above: Performed By: #### 8 1313997 ####HEATHER Urinalysis Automated Jocncbascy5578 [place] [address] UA Mucous Trace Abnormal Trace [facility] Comment on above: Performed By: #### 8 3370817 ####HEATHER Urinalysis Automated Hrsnmzkbil0363 [place] [address] UA Nitrite Negative Normal Negative [facility] Comment on above: Performed By: #### 8 3541172 ####HEATHER Urinalysis Automated Lkvlkwckab1214 [place] [address] UA pH 6.0 Normal 4.6-8.0 [facility] Comment on above: Performed By: #### 8 6235062 ####HEATHER Urinalysis Automated Ljbnzsvpbk6509 [place] [address] UA Protein Negative Normal Negative [facility] Comment on above: Performed By: #### 8 9461017 ####HEATHER Urinalysis Automated [address] [place] [address] UA Spec Grav 1.019 Normal 1.003-1.03 0 [facility] Comment on above: Performed By: #### 8 4642171 ####HEATHER Urinalysis Automated Pxgbncuxhq4393 [place] [address] UA Squam Epithelial 5-10 Abnormal 0-5 [facility] Comment on above: Performed By: #### 8 8789154 ####HEATHER Urinalysis Automated Twtavxvqgn8552 [place] [address] UA Urobilinogen Negative Normal [facility] Comment on above: Performed By: #### 8 7836712 ####HEATHER Urinalysis Automated Jqyrzdlabv6298 [place] [address] UA WBC 5-10 Abnormal 0-5 [facility] Comment on above: Performed By: #### 8 [id number] ####HEATHER Urinalysis Automated Jtreiafgyd3546 [place] [address] Urine, color Yellow Normal Yellow [facility] Comment on above: Performed By: #### 8 6563278 ####HEATHER Urinalysis Automated Skctoolqjd9103 [place] [address] Urine, erythrocytes 0-3 Normal 0-3 [facility] Comment on above: Performed By: #### 8 3114323 ####HEATHER Urinalysis Automated Akqcnogygd6195 [place] [address] Urine, glucose Negative Normal Negative [facility] Comment on above: Performed By: #### 8 5999763 ####HEAHTER Urinalysis Automated Dlbfwjridv5087 [place] [address] Urine, ketones presence Trace Normal [facility] Comment on above: Performed By: #### 8 8442817 ####HEATHER Urinalysis Automated Qrdvggeqge4441 [place] [address] Urine, urobilinogen Negative Normal Negative [facility] Comment on above: Performed By: #### 8 [id number] ####HEATHER Urinalysis Automated Xxx[address]ik[address] [place] [id number] eGFRon 11-22-2017 eGFR (non-black) mL/min/{1.73_m2} Normal [facility] Comment on above: Order Comment: Order added by Discern Expert. Performed By: #### 1 [id number] ####HEATHER MstRkim5405 [place] [address] Coding Summary.on 10-31-2017 Coding Summary. CODING DATE: FINAL [facility] STATUS: Home (Routine DC) PAYOR: Medicaid EAPG DESCRIPTION 0118 NUTRITION THERAPY ADMIT DX: REASON FOR VISIT DX: E78.6 Lipoprotein deficiency FINAL DX: PRINCIPAL: E78.6 Lipoprotein deficiency SECONDARY: E66.01 Morbid (severe) obesity due to excess calories PYMT [facility] STAT DESCRIPTION DOCTOR NAME DATE NOTE: The code number assigned matches the documented diagnosis and / or procedure in the patient's chart. However, the narrative phrase printed from the coding software may appear abbreviated, or result in slightly different terminology. Coded By: Cydney Olvera Date Saved: 10/31/2017 12:23 pm Normal [facility] Coding Summary.on 10-18-2017 Coding Summary. CODING DATE: FINAL [facility] STATUS: [facility] PAYOR: Medicaid EAPG DESCRIPTION 0999 UNASSIGNED ADMIT DX: REASON FOR VISIT DX: R44.0 Auditory hallucinations FINAL DX: PRINCIPAL: F25.9 Schizoaffective disorder, unspecified SECONDARY: F31.9 Bipolar disorder, unspecified E11.9 Type 2 diabetes mellitus without complications F17.210 Nicotine dependence, cigarettes, uncomplicated Z79.899 Other halfway (current) drug therapy PYMT PROC EAPG STAT DESCRIPTION DOCTOR NAME DATE NOTE: The code number assigned matches the documented diagnosis and / or procedure in the patient's chart. However, the narrative phrase printed from the coding software may appear abbreviated, or result in slightly different terminology. Revised Coded By: Araceli Resendez Revised Date Saved: 10/18/2017 03:59 pm Normal [facility] ED Clinical Summaryon 2017 ED Clinical Summary (Inserted Image. Silvia ble to display) [place] [address] ED Clinical SummaryPerson Information Name: CRIS MAGANA/Eitan Age: 17 Years : 2000 12:00 AM Sex: Female Language:Malawian PCP: Barbara Mcknight MD Marital Status:Single Visit [...] AM 10/17/2017 7:46 AM 10/17/2017 7:46 AM ADDRESS:[address] [place] [id number] [facility] NOTES: Patient: CRIS MAGANA Age: 17 years Sex: Female : 2000 Associated Diagnoses: None Author: Christina LOZANO, Viky Cleaning Basic Information Time seen: Date & time 10/16/17 19:45:00. History source: Patient, log driver, family. Arrival mode: Private vehicle. 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 Pt voices that she would harm everyone with a knife. Pt denies any suicidal ideation. [facility] contacted . History of Present Illness [...] her grandmother who is her guardian and log driver. Patient resides at a snf history of bipolar schizophrenia. Caretakers report increased agitation since August 2017. Damián notes that there was a medication change at that time patient was behaving differently, symptoms were discussed with Dr. Marroquin psychiatrist they never told to wait for medication to take effect. Patient has had worsening behavior hitting threatening throwing she was released from [facility] today. Patient states she has auditory visual hallucinations versus telling her to hurt others. She is seen clowns and shapes not sleeping good. Denies suicidal ideation denies substance abuse she admits toescaping from snf at night routinely however she supposed to [...] Not DocumentedBee Stings- Sob.. Medications: (Selected) Documented MedicationsDocumentedoxcarb azepine 300 mg Tab: 600 mg = 2 tab(s), Oral, BID, # 120 tab(s), Refills(s) 0paliperidone 3 mg oral tablet, extended release: 3 mg = 1 tab(s), Oral, qAM, # 30 tab(s), Refills(s) 0traZODONE 150 mg Tab: 150 mg = 1 tab(s), Oral, Once a day (at bedtime), # 30 tab(s), Refills(s) 0. Past Medical/ Family/ Social History Medical history: ResolvedDiabetes ([id number]): Resolved.Suicidal plans ([id number]): Resolved.Homicidal thoughts ([id number]): Resolved.. Surgical history: None ([id number]).. Family history: No family history items have [...] Stat collect, Collected, 10/16/17 21:09:00 EST by [id number], Once, Stop date 10/16/17 21:09:00 EST, Lab [...] Auto 51.3 % Lymph Auto 39.5 % [place] Auto 7.9 % Eos Auto 1.1 % Basophil Auto 0.2 % Neutro Absolute 4.6 E9/L Lymph Absolute 3.5 E9/L [place] Absolute 0.7 E9/L Eos Absolute 0.1 E9/L [...] has been threatening the staff at the snf. She calmed in the emergency room. The bloodwork is unremarkable negative drug screen. The patient is seen by the P and she will be admitted to [facility]., Critical Care time 40 minutes.. Impression and Plan Diagnosis Schizoaffective disorder ([id number]-LV F25.9, Discharge, Medical) Bipolar disorder ([id number] F31.9, Discharge, Medical) Plan Condition: Stable. Disposition: Transfer to other location: Time: 10/17/17 00:30:00, Facility name: [facility]. Counseled: Patient, Family, Regarding diagnosis, Regarding diagnostic results, Regarding treatment plan. MEDICAL INFORMATION: Prescriptions Given:PATIENT EDUCATION INFORMATION: Instructions: Follow up:DIAGNOSIS:Bipolar disorder; Schizoaffective disorder Normal [facility] ED Note-Physicianon 10-17-19 ED Note-Physician Patient: PEPE MAGANA Age: 17 years Sex: Female : 2000 Associated Diagnoses: None Author: Christina LOZANO, Viky Cleaning Basic Information Time seen: Date & time 10/16/17 19:45:00. History source: Patient, log driver, family. Arrival mode: Private vehicle. 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 Temporary stress will go away when [...] 09/22/2014 Document Reviewed: 11/03/2008ExitCare? Patient Information ?2015 [employer]. This information is not intended to replace [...] day. It is best if it is qhqz-cc-riaj. Remember, they will want to help you.? [...] your local emergency services (911 in the [place]).? Call a suicide hotline:? 1-614-575-TALK ( ) in the [place].? 0-598-JDFXPBM ( ) in the [place].? in the [facility] for [place]-speaking counselors.? 4-293-648-4TTY ( ) in the [facility] for TTY users.? Visit the following websites for information and help:? National Suicide Prevention Lifeline: www.suicidepreventionlifeli ne.org? Hopeline: www.hopeline.com? [place] Foundation for Suicide Prevention: www.afsp.org? For lesbian, hooks, bisexual, transgender, or questioning youth, contact The New Project:? 9-601-8-U-NEW ( ) in the [place].? www.thetrevorproject.org? In [place], treatment resources are listed in each province with listings available under The [employer] for Health Services or similar titles. Another source for Crisis Centres by Province is located at http://www.suicidepreventio n.ca/ae-cqvhco-nlu/find-a-c dqykk-qkksbw-guy/crisis-amado tresDocument Released: 03/23/2004 Document Revised: 12/09/2012 Document Reviewed: 01/12/2015ExitCare? Patient Information ?2015 [employer]. This information is not intended to replace advice given to you by your health care provider. Make sure you discuss any questions you have with your health care provider. Normal [facility] ED Patient Summaryon 11-07-2 017 ED Patient Summary (Inserted Image. Silvia ble to display) [address] [address] Patient Discharge Instructions Person Information Name: CRIS MAGANA Age: 17 Years Date: 08/07/2017 12:16 PMDischarge Diagnosis: Suicidal ideation Primary Care Physician: Juan Luis MEDINA, Barbara Jean Provider InformationPrimary Provider: Herberth MEDINA, TimPhysician Doctor Of Naprapathy:None The exam and treatment you received in the Emergency Department were for an urgent problem and are not intended as complete care. It is important that you follow up with a doctor, nurse practitioner, or physician?s assistant mechanic for ongoing care. If your symptoms become worse or you do not improve as expected and you are unable to reach your usual health care provider, you should return to the Emergency Department. We are available 24 hours a day. CRIS MAGANA has been given the following list of patient education materials, prescriptions and follow-up instructions: Follow-up Instructions:With: Address: When: [facility] Comments: As scheduled With: Address: When: Barbara Mcknight [address] [place] [address] [address] [phone] Business (2) In 3 days 08/10/2017 In the event [...] 1 mg oral tablet) Comment: Pharmacy Information: [facility] Thank you for choosing [facility] Patient Education Materials: StressStress-related medical problems [...] some stress is temporary and some is halfway.? Temporary stress will go away when a [...] 09/22/2014 Document Reviewed: 11/03/2008ExitCare? Patient Information ?2015 [employer]. This information is not intended to replace [...] day. It is best if it is wtha-bn-ntyi. Remember, they will want to help you.? [...] your local emergency services (911 in the [place]).? Call a suicide hotline:? 1-451-713-TALK ( ) in the [place].? 5-783-SZUZZQB ( ) in the [place].? in the [place] for [place]-speaking counselors.? 7-386-423-4TTY ( ) in the [place] for TTY users.? Visit the following websites for information and help:? National Suicide Prevention Lifeline: www.suicidepreventionlifeli ne.org? Hopeline: www.hopeline.com? [place] Foundation for Suicide Prevention: www.afsp.org? For lesbian, hooks, bisexual, transgender, or questioning youth, contact The New Project:? 2-148-4-U-NEW ( ) in the [place].? www.thetrevorproject.org? In [place], treatment resources are listed in each province with listings available under The [employer] for Health Services or similar titles. Another source for Crisis Centres by Province is located at http://www.suicidepreventio n.ca/lz-zffdkp-fgr/find-a-c npvpn-wsvynf-cou/crisis-amado tresDocument Released: 03/23/2004 Document Revised: 12/09/2012 Document Reviewed: 01/12/2015ExitCare? Patient Information ?2014 [employer]. This information is not intended to replace advice given to you by your health care provider. Make sure you discuss any questions you have with your health care provider.MATT German ANGELINA M , have received the following patient education materials/instructions and have verbalized understanding: Patient Education Materials: Stress; Suicidal Feelings: How to Help Yourself Follow-up Instructions: With: Address: When: [facility] Comments: As scheduled With: Address: When: Barbara Mcknight [address] [place] [address] [address], [place] [address] Business (1) In 3 days 08/10/2017 Prescriptions: Patient Signature Date Clinician/Nurse Signature Date 08/07/17 16:21:09 Normal [facility] Ethanolon 08-07-2017 Ethanol mg/dL Normal <=7 [facility] Comment on above: Performed By: #### 2 149220 ####[facility] [address] [place] [address] Progress Note-Nurseon 2016 Progress Note-Nurse 1509: Patient in bed finishing up her food, had been talking with P. Patient within view - Guardian at bedside. 1530: Patient requesting more food, Guardian at bedside. 1600: Patient OK for DC by Andrei and Dr. Kevin with safety plan. Patient has 24 hour supervision and a follow-up appointment for August 09 at 6pm with Mariah and [facility] counciler. Normal [facility] Salicylateon 08-07-2017 Salicylates mg/dL Low 6-29 [facility] Comment on above: Performed By: #### 2 307468, 7151502, 2054502, 11904988, 7729325, 5559497 ####[facility] [address] [place] [address] U BetaHcg Qualon 08-07-2017 CHORIOGONADOTROPIN.BE TA SUBUNIT:SCNC:PT:URINE :QN: Negative Normal [facility] Comment on above: Performed By: #### 2 0780071 ####[facility] [address] [place] [address] U Drug Screenon 08-07-2017 AMPHETAMINES:PRTHR:PT :URINE:ORD:SCREEN>100 0 NG/ML Negative Normal Negative [facility] Comment on above: Result Comment: Nega tive Cutoff: <1000 ng/mL Performed By: #### 2 165111 ####[facility] [address] [place] [address] OPIATES:PRTHR:PT:URIN E:ORD:SCREEN Negative Normal Negative [facility] Comment on above: Result Comment: Nega tive Cutoff: <300 ng/mL Performed By: #### 2 476705 ####[facility] [address] [place] [address] PHENCYCLIDINE:PRTHR:P T:URINE:ORD:SCREEN>25 NG/ML Negative Normal Negative [facility] Comment on above: Result Comment: Nega tive Cutoff: <25 ng/mLThese drug screen results are to be used for medical (i.e., treatment) purposes only. Unconfirmed drug screening results must not be used for non-medical purposes (e.g., employment testing, legal testing). Performed By: #### 2 557608 ####[facility] [address] [place] [address] TETRAHYDROCANNABINOL: PRTHR:PT:URINE:ORD:SC REEN>50 NG/ML Negative Normal Negative [facility] Comment on above: Result Comment: Nega tive Cutoff: <50 ng/mL Performed By: #### 2 386434 ####[place] [address] [place] [address] Urine, barbiturates presence Negative Normal Negative [facility] Comment on above: Result Comment: Nega tive Cutoff: <200 ng/mL Performed By: #### 2 079769 ####[facility] [address] [place] [address] Urine, benzodiazepines presence Negative Normal Negative [facility] Comment on above: Result Comment: Nega tive Cutoff: <200 ng/mL Performed By: #### 2 180760 ####[facility] [address] [place] [address] Urine, cocaine presence Negative Normal Negative [facility] Comment on above: Result Comment: Nega tive Cutoff: <300 ng/mL Performed By: #### 2 275728 ####[facility] [address] [place] [address] eGFRon 08-07-2017 eGFR (black) mL/min/{1.73_m2} Normal >=59 [facility] Comment on above: Order Comment: Order added by Discern Expert. Result Comment: eGFR is race adjusted. AA=. Performed By: #### 2 721847, 5956750, 4563861, 28075395, 7895009, 9045433 ####[facility] [address] [place] [address] eGFR (non-black) mL/min/{1.73_m2} Normal >=59 [facility] Comment on above: Order Comment: Order added by Discern Expert. Result Comment: Energy Projects Lead jorge kidney disease could be indicated at eGFR's of less than 60 mL/min/1.73m2. Kidney failure is indicated at less than 15 mL/min/1.73m2. Performed By: #### 2 630509, 3844162, 9914528, 10191754, 8220251, 7356010 ####[facility] [address] [place] [address] ED Clinical Summaryon 2016 ED Clinical Summary (Inserted Image. Silvia ble to display) [address] [id number] ED Clinical SummaryPerson Information Name: CRIS MAGANA/Eitan Age: 17 Years : 2000 12:00 AM Sex: Female Language:Malawian PCP: Barbara Mcknight MD Marital Status:Single Visit [...] PM 08/06/2017 2:50 PM 08/06/2017 2:50 PM ADDRESS:[address] [place] [phone] PHYS DOC NOTES: Patient: CRIS MAGANA Age: [...] Not DocumentedBee Stings- Sob.. Medications: (Selected) Documented MedicationsDocumentedcitalo pram 20 mg Tab: 20 mg = 1 tab(s), Oral, Daily, Refills(s) 0risperidone 1 mg oral tablet: Refills(s) 0. Past Medical/ Family/ Social History Medical history: ResolvedDiabetes ([id number] [id number]): Resolved.Suicidal plans (851793873): Resolved.Homicidal thoughts (826245571): Resolved.. Surgical history: None (870067126).. Family history: No family history items have been selected or recorded.. Social history: Social & Psychosocial HabitsAlcohol Comment: rich. - 06/10/2017 18:11 - Kathy Vasquez RN01/20/2017 Risk Assessment: Denies Alcohol Use07/02/2017 Frequency: DailySubstance Abuse Comment: rich. - 06/10/2017 18:11 - Kathy Vasquez RN01/20/2017 Risk Assessment: Denies Substance AbuseTobacco Comment: smokes 2 ppd. - 06/10/2017 18:11 - Kathy Vasquez RN01/20/2017 Risk Assessment: Denies Tobacco Use07/24/2017 Use: [...] Stat, Transport Mode: Cart, Reason: Trauma, No, pp_set_radiology_subspecial ty, Emergency. Radiology results: 08/06/2017 14:35; Ching DO, [...] time she is discharged back to the snf . Reexamination/ Reevaluation Vital signs Basic Oxygen Information 08/06/2017 13:43 EST SpO2 98 % Oxygen Therapy Room air Impression and Plan Diagnosis Mood disorder (HOD39-MZ F39, Discharge, Emergency medicine, Medical) Plan Condition: [...] Adult Follow up:With: Address: When: Barbara Mcknight [address] [place], [place] [address] Business (1) In 3 days DIAGNOSIS:Mood disorder Normal [facility] ED Note-Nursingon 08-06-2017 ED Note-Nursing Patient ambulates ou t of ER with family/caregiver without difficutly, denies needs. Normal [facility] ED Note-Physicianon 08-06-20 17 ED Note-Physician Patient: PEPE MAGANA Age: [...] Not DocumentedBee Stings- Sob.. Medications: (Selected) Documented MedicationsDocumentedcitalo pram 20 mg Tab: 20 mg = 1 tab(s), Oral, Daily, Refills(s) 0risperidone 1 mg oral tablet: Refills(s) 0. Past Medical/ Family/ Social History Medical history: ResolvedDiabetes ([id number] 2L339N86G1): Resolved.Suicidal plans (964125928): Resolved.Homicidal thoughts (713759603): Resolved.. Surgical history: None (650187631).. Family history: No family history items have been selected or recorded.. Social history: Social & Psychosocial HabitsAlcohol Comment: denjamila. - 06/10/2017 18:11 - Kathy Vasquez RN [...] Stat, Transport Mode: Cart, Reason: Trauma, No, pp_set_radiology_subspecial ty, Emergency. Radiology results: 08/06/2017 14:35; Damon Flower [...] time she is discharged back to the snf . Reexamination/ Reevaluation Vital signs Basic Oxygen Information 08/06/2017 13:43 EST SpO2 98 % Oxygen Therapy Room air Impression and Plan Diagnosis Mood disorder (QXZ63-WJ F39, Discharge, Emergency medicine, Medical) Plan Condition: [...] see your family doctor for follow up.. Normal [facility] Comment on above: Result Comment: Elec tronically Signed By: Damon Flower DO\.br\Date and Time Signed: 08/06/17 14:36 EST ED Patient Education Noteon 08-06-2017 ED Patient Education Note Patient Education Materials Follows:MedicineDepressionD epression refers to feeling sad, low, down in [...] a serious side effect.FOR MORE INFORMATION? National [place] on Mental Illness: www.orlin.org?? National [place]ford of Mental Health: www.nimh.nih.gov? Document Released: 09/14/2001 Document Revised: 02/01/2015 Document Reviewed: 12/16/2012ExitCare? Patient Information ?2015 [employer]bound. This information is not intended to replace advice given to you by your health care provider. Make sure you discuss any questions you have with your health care provider. Normal [facility] ED Patient Summaryon 017 ED Patient Summary (Inserted Image. Silvia ble to display) [place] [id number] Patient Discharge Instructions Person Information Name: CRIS MAGANA Age: 17 Years Date: 08/06/2017 1:37 PMDischarge Diagnosis: Mood disorder Primary Care Physician: Barbara Mcknight MD Provider InformationPrimary Provider: Aroldo Flower DO Doctor Of Naprapathy:None The exam and treatment you received in the Emergency Department were for an urgent problem and are not intended as complete care. It is important that you follow up with a doctor, nurse practitioner, or physician?s assistant mechanic for ongoing care. If your symptoms become worse or you do not improve as expected and you are unable to reach your usual health care provider, you should return to the Emergency Department. We are available 24 hours a day. CRIS MAGANA has been given the following list of patient education materials, prescriptions and follow-up instructions: Follow-up Instructions:With: Address: When: Barbara Mcknight [address] [facility] [facility], [place] [address] Business (1) In 3 days In the [...] 1 mg oral tablet) Comment: Pharmacy Information: [facility] Kristi Thank you for choosing [facility] Patient Education Materials: DepressionDepression refers to [...] a serious side effect.FOR MORE INFORMATION? National [place] on Mental Illness: www.orlin.org?? National Radford of Mental Health: www.nimh.nih.gov? Document Released: 09/14/2001 Document Revised: 02/01/2015 Document Reviewed: 12/16/2012ExitCare? Patient Information ?2014 [employer]bound. This information is not intended to replace advice given to you by your health care provider. Make sure you discuss any questions you have with your health care provider.MATT German ANGELINA M , have received the following patient education materials/instructions and have verbalized understanding: Patient Education Materials: Depression, Adult Follow-up Instructions: With: Address: When: Barbara Mcknight [address] [place] [address] [address] [place] [phone] Business (1) In 3 days Prescriptions: Patient Signature Date Clinician/Nurse Signature Date 08/06/17 14:50:03 [facility] Pre-Arrival Noteon 7 Pre-Arrival Note Pre-Arrival SummaryN valeria: 17 Female, Fall + LOC, Current Date: 08/06/2017 13:38:07 ESTGender: Date of : Age: Pre-Arrival Type: EMSETA: 08[facility]06/2017 13:56:[facility]: Presenting Problem: LOCPre-Arrival User: Sathish Salvador RN Source: Location: PACompletion Date/Time: 08/06/17 13:27:00[facility] Emergency Department Pre-Hospital Report Form Vital Signs: Pre-Hospital Report:LOC fall, fully immobilized Treatment in Route: Response to Treatment: Misc. Issues: Normal [facility] XR Spine Cervical 2 or 3 Vie wson 08-06-2017 XR Spine Cervical 2 or 3 Views Exam Date/Time:08/06/2017 14:21 ESTReason for Exam:TraumaReportIMPRESSION : NEGATIVE CERVICAL SPINE.CLINICAL HISTORY: Trauma. Generalized neck [...] Trujillo MD Transcribed by: DENIA Technologist: LIZET [facility] Coding Summary.on 07-31-2017 Coding Summary. 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 However, the narrative phrase printed from the coding software may appear abbreviated, or result in slightly different terminology. Revised Coded By: Clarice Moeller Revised Date Saved: 07/31/2017 11:14 am Normal [facility] ED Clinical Summaryon 2016 ED Clinical Summary (Inserted Image. Silvia ble to display) [place] [id number] ED Clinical SummaryPerson Information Name: CRIS MAGANA/Eitan Age: 17 Years : 2000 12:00 AM Sex: Female Language:Malawian PCP: Barbara Mcknight MD Marital Status:Single Visit [...] AM 07/30/2017 9:04 AM 07/30/2017 9:04 AM ADDRESS:[address] [place] [id number] [facility] DOC NOTES: Patient: CRIS MAGANA Age: 17 [...] EDT, 50 hour(s), Total volume (mL): 1,000Documented MedicationsDocumentedcitalo pram 20 mg Tab: 20 mg = 1 tab(s), Oral, Daily, Refills(s) 0risperidone 1 mg oral tablet: Refills(s) 0, Reviewed by Dr. Aguilar. Past Medical/ Family/ Social History Medical history: ResolvedDiabetes ([id number]): Resolved.Suicidal plans ([id number]): Resolved.Homicidal thoughts (308463947): Resolved., Reviewed as documented in chart. Surgical history: None ([id number])., Reviewed as documented in chart. Family history: No family history items have been selected or recorded.. Social history: Social & Psychosocial HabitsAlcohol Comment: rich. - 06/10/2017 18:11 - Christina YA, Kathy Corado01/20/2017 Risk Assessment: Denies Alcohol Use07/02/2017 Frequency: DailySubstance Abuse Comment: rich. - 06/10/2017 18:11 - Kathy Vasquez RN N001/20/2017 Risk Assessment: Denies Substance AbuseTobacco Comment: smokes 2 ppd. - 06/10/2017 18:11 - Christina YA, Kathy N001/20/2017 Risk Assessment: Denies Tobacco Use07/24/2017 Use: [...] rhythm, No ST-T changes, no ectopy, normal LA & QRS intervals. Results review: Lab results : Lab View 07/29/2017 18:58 EDT WBC 11.1 E9/L HI RBC 5.0 E12/L Hgb 14.5 gm/dL Hct 42.3 % MCV 84.9 fL MCH 29.0 pg MCHC 34.2 gm/dL RDW 12.8 % Platelet 255.0 E9/L MPV 7.7 fL Neutro Auto 62.0 % Lymph Auto 31.0 % [place] Auto 5.7 % Eos Auto 0.9 % Basophil Auto 0.4 % Neutro Absolute 6.9 E9/L Lymph Absolute 3.4 E9/L [place] Absolute 0.6 E9/L Eos Absolute 0.1 E9/L [...] Room air Impression and Plan Diagnosis Depression (EAS50-CJ F32.9, Discharge, Emergency medicine, Medical) Manipulative behavior (ESC58-SZ R46.89, Discharge, Emergency medicine, Medical) Calls-Consults - Mental health, phone call, recommends Patient is contracted for safety with mental health. Patient will be released to her grandmother.. Plan Condition: Unchanged. Disposition: Discharged: to home. Patient was given the following educational materials: Depression, Adult, Iolx-hu-Bezt, Depression, Adult, Iysn-uu-Fntu. Follow up with: Barbara Mcknight In 3 days 08/01/2017 Call physician if symptoms worsenReturn to ED if symptoms worsen; [facility] In 3 days 08/01/2017. Counseled: Patient, Family, Regarding diagnosis, Regarding diagnostic results, Regarding treatment plan, Regarding prescription. Addendum by Tray Alexis MD on July 30, 2017 02:24 EDTPatient is evaluated, stable, behavioral health had a lengthy discussion with me about not being suicidal today and say for snf, grandmother who is power of employment law attorney does not wish her to be hospitalized. There is a safety plan in place, we will allow her to stay in the bed until picked up by her snf MEDICAL INFORMATION: Prescriptions Given:PATIENT EDUCATION INFORMATION: Instructions:Depression, Adult, Izbf-hk-Qquy Follow up:With: Address: When: [facility] In 3 days 08/01/2017 With: Address: When: Barbara Mcknight [address] [place] [address] [place] [phone] [facility] () In 3 days 08/01/2017 Comments: Call physician if symptoms worsen Return to ED if symptoms worsen DIAGNOSIS:Depression; Manipulative behavior Normal [facility] ED Note-Physicianon 07-30-20 ED Note-Physician Patient: PEPE [...] EDT, 50 hour(s), Total volume (mL): 1,000Documented MedicationsDocumentedcitalo pram 20 mg Tab: 20 mg = 1 tab(s), Oral, Daily, Refills(s) 0risperidone 1 mg oral tablet: Refills(s) 0, Reviewed by Dr. Aguilar. Past Medical/ Family/ Social History Medical history: ResolvedDiabetes ([id number]): Resolved.Suicidal plans ([id number]): Resolved.Homicidal thoughts (223577757): Resolved., Reviewed as documented in chart. Surgical history: None ([id number])., Reviewed as documented in chart. Family history: [...] rhythm, No ST-T changes, no ectopy, normal LA & QRS intervals. Results review: Lab results : Lab View 07/29/2017 18:58 EDT WBC 11.1 E9/L HI RBC 5.0 E12/L Hgb 14.5 gm/dL Hct 42.3 % MCV 84.9 fL MCH 29.0 pg MCHC 34.2 gm/dL RDW 12.8 % Platelet 255.0 E9/L MPV 7.7 fL Neutro Auto 62.0 % Lymph Auto 31.0 % [place] Auto 5.7 % Eos Auto 0.9 % Basophil Auto 0.4 % Neutro Absolute 6.9 E9/L Lymph Absolute 3.4 E9/L [place] Absolute 0.6 E9/L Eos Absolute 0.1 E9/L [...] Room air Impression and Plan Diagnosis Depression (YTG91-BB F32.9, Discharge, Emergency medicine, Medical) Manipulative behavior (POC48-WB R46.89, Discharge, Emergency medicine, Medical) Calls-Consults - Mental health, phone call, recommends Patient is contracted for safety with mental health. Patient will be released to her grandmother.. Plan Condition: Unchanged. Disposition: Discharged: to home. Patient was given the following educational materials: Depression, Adult, Iguz-cd-Kldo, Depression, Adult, Tiis-tn-Uapv. Follow up with: Barbara Mcknight In 3 days 08/01/2017 Call physician if symptoms worsenReturn to ED if symptoms worsen; [facility] In 3 days 08/01/2017. Counseled: Patient, Family, Regarding diagnosis, Regarding diagnostic results, Regarding treatment plan, Regarding prescription.Patient is evaluated, stable, behavioral health had a lengthy discussion with me about not being suicidal today and say for snf, grandmother who is power of employment law attorney does not wish her to be hospitalized. There is a safety plan in place, we will allow her to stay in the bed until picked up by her snf Normal [facility] Comment on above: Result Comment: Elec tronically Signed By: Vanesa MEDINA, Tray\.rafael\Date and Time Signed: 07/30/17 02:24 EDT ED Patient Education Noteon 07-30-2017 ED Patient Education Note Patient Education Materials Follows:MedicineDepressionD epression is feeling sad, low, down in the [...] 02/01/2015 Document Reviewed: 01/16/2013ExitCare? Patient Information ?2015 [employer]. This information is not intended to replace advice given to you by your health care provider. Make sure you discuss any questions you have with your health care provider. Normal [facility] ED Patient Summaryon 017 ED Patient Summary (Inserted Image. Silvia ble to display) [place] [address] Patient Discharge Instructions Person Information Name: CRIS MAGANA Age: 17 Years Date: 07/29/2017 6:10 PMDischarge Diagnosis: Depression; Manipulative behavior Primary Care Physician: Barbara Mcknight MD Provider InformationPrimary Provider: Berta Aguilar DO Doctor Of Naprapathy:None The exam and treatment you received in the Emergency Department were for an urgent problem and are not intended as complete care. It is important that you follow up with a doctor, nurse practitioner, or physician?s assistant mechanic for ongoing care. If your symptoms become worse or you do not improve as expected and you are unable to reach your usual health care provider, you should return to the Emergency Department. We are available 24 hours a day. CRIS MAGANA has been given the following list of patient education materials, prescriptions and follow-up instructions: Follow-up Instructions:With: Address: When: [facility] In 3 days 08/01/2017 With: Address: When: Barbara Mcknight [address], [place] [id number] [facility] (1) In 3 days 08/01/2017 Comments: Call physician if symptoms worsen Return to ED if symptoms worsen In the event that this physician does not participate in your insurance network, please consult with your insurance company to find a nearby participating provider. Patient Education Materials:Depression, Adult, Zimd-ow-Oltx Medications Given:Medication Dose Route No medications found. Medication Information:Medications to Continue with No ChangesOther Medicationscitalopram (citalopram 20 mg Tab) 1 Tabs By Mouth every day.risperidone (risperidone 1 mg oral tablet) Comment: Pharmacy Information: [facility] Thank you for choosing [facility] Patient Education Materials: DepressionDepression is feeling [...] 02/01/2015 Document Reviewed: 01/16/2013ExitCare? Patient Information ?2014 [employer]. This information is not intended to replace advice given to you by your health care provider. Make sure you discuss any questions you have with your health care provider.MATT German ANGELINA M , have received the following patient education materials/instructions and have verbalized understanding: Patient Education Materials: Depression, Adult, Qvqx-as-Akyh Follow-up Instructions: With: Address: When: [facility] In 3 days 08/01/2017 With: Address: When: Barbara Mcknight [address] [place] [address] [address] [phone] [facility] (1) In 3 days 08/01/2017 Comments: Call physician if symptoms worsen Return to ED if symptoms worsen Prescriptions: Patient Signature Date Clinician/Nurse Signature Date 07/30/17 09:04:53 [facility] Progress Note-Nurseon 2016 Progress Note-Nurse safety contract read , understood & signed by snf staff member & pt was d/c'd to her. [facility] Progress Note-Nurse Nursing assessment completed at this time. Patient states shes having [...] cart watching TV.Patient requesting something to eat. [place] administered. No further needs.Remains within view of nurses.Patient resting on cart watching TV. Denies any needs.Patient resting on cart watching TV. Denies any needs. Call light within reach.Patient resting on cart watching TV. Call light within reach.Patient resting on cart. Patient is speaking on phone right now with P.This nurse informed by Sarah Lynn RN that patient has decided she no longer wants to go home with david hernandez states if she leaves she isnt coming back. This nurse in to speak with patient. Patient states 'I just dont wanna go with her, shes a bitch. Ill kill her. This nurse out to lobby to find david hernandez unable to be located. [facility] hotline called. Patient will be seen by P in person.Vitals re-assessed at this time. Patient requesting a warm blanket. No further needs. Call light within reach.Patient resting on cart watching TV. Remains within view of nurses station.Patient resting quietly on cart watching TV. Denies any needs. Call light within reach. Normal [facility] Acetamnphn Lvlon 07-29-2017 Acetaminophen mass conc <10 Low 15-30 [facility] Comment on above: Performed By: #### 2 501986, 1356691, 4305208, 1279050, 5141048, 13175493, 0399822, 1877878, 50301107 ####[facility] [address] [place] [address] Auto Diffon 07-29-2017 Basophils Auto #/vol (Bld) 0.0 E9/L Normal 0.0-0.2 [facility] Comment on above: Order Comment: Order Added by Discern Expert. Performed By: #### 2 276583, 3472699, 9403675, 5650587, 0630393, 54604396, 1865105, 9680340, 31201587 ####[facility] [address] [place] [address] Basophils Auto #/vol (Bld) 0.4 % Normal 0.0-2.0 [facility] Comment on above: Order Comment: Order Added by Discern Expert. Performed By: #### 2 666828, 7853013, 9142440, 4925005, 5801523, 79884074, 3107297, 6179797, 92765473 ####[address] [address] Eosinophils 0.1 E9/L Normal 0.0-0.5 [facility] Comment on above: Order Comment: Order Added by Discern Expert. Performed By: #### 2 870385, 8864535, 3789262, 3680051, 1437862, 88642588, 8659666, 7532900, 44454823 ####[facility] [address] [place] [address] Eosinophils/100 leukocytes 0.9 % Normal 0.0-8.0 [facility] Comment on above: Order Comment: Order Added by Discern Expert. Performed By: #### 2 523647, 5833111, 6404119, 1527563, 7429380, 02246695, 7383908, 4709459, 61702464 ####[facility] [address] [place] [address] Lymphocytes 3.4 E9/L Normal 1.0-4.0 [facility] Comment on above: Order Comment: Order Added by Nita Expert. Performed By: #### 2 081885, 0430967, 8364192, 9278979, 7875859, 19982233, 6519181, 3735736, 92975930 ####[facility] [address] [place] [address] Lymphocytes/100 leukocytes 31.0 % Normal 14.0-50.0 [facility] Comment on above: Order Comment: Order Added by Discern Expert. Performed By: #### 2 516509, 2520003, 1361761, 2855967, 0803448, 98397869, 9781039, 4374516, 72651203 ####[place] [address] [place] [address] Monocytes 0.6 E9/L Normal 0.2-1.0 [facility] Comment on above: Order Comment: Order Added by Nita Expert. Performed By: #### 2 581786, 6019102, 4742268, 7089965, 1361577, 10362162, 1087548, 6859074, 28141859 ####[place] [address] [place] [address] Monocytes/100 leukocytes 5.7 % Normal 4.0-14.0 [facility] Comment on above: Order Comment: Order Added by Nita Expert. Performed By: #### 2 135566, 3712131, 5624670, 7315083, 1103385, 99711587, 4903037, 3764176, 24203220 ####[place] [address] [place] [address] Neutrophils 6.9 E9/L Normal 2.0-7.5 [facility] Comment on above: Order Comment: Order Added by Discern Expert. Performed By: #### 2 121666, 0490522, 6094546, 4847194, 8354232, 26077235, 0585645, 8864072, 11132996 ####[place] [address] [place] [address] Neutrophils/100 leukocytes 62.0 % Normal 36.0-75.0 [facility] Comment on above: Order Comment: Order Added by Nita Expert. Performed By: #### 2 099239, 2761090, 5201424, 5341277, 6613716, 79350306, 3502383, 7811901, 03718522 ####[facility] [address] [place] [address] B hCG Qualon 07-29-2017 HCG.beta subunit Qn Negative Normal [facility] Comment on above: Performed By: #### 2 693801, 1450782, 4304422, 5535976, 0533973, 86154631, 5773508, 4812518, 60552611 ####[facility] [address] [place] [address] BMPon 07-29-2017 BUN/Creatinine Ratio 14 No Units Normal 10-20 [facility] Comment on above: Performed By: #### 2 842340, 3784511, 7933449, 8173187, 0749673, 35508897, 2817038, 4949987, 93210745 ####[facility] [address] [place] [address] Creatinine 1.1 mg/dL Normal 0.5-1.3 [facility] Comment on above: Performed By: #### 2 850962, 1113654, 1997079, 6854233, 7276303, 99757349, 9712379, 7514919, 76129193 ####[facility] [address] [place] [address] Urea nitrogen 16 mg/dL Normal 5-21 [facility] Comment on above: Performed By: #### 2 789577, 2713643, 2192179, 7669717, 3814554, 50029211, 6362310, 9399004, 70367413 ####[facility] [address] [place] [address] Anion gap 13 mmol/L Normal 6-16 [facility] Comment on above: Performed By: #### 2 945720, 6555217, 3154819, 5962625, 0075569, 64141091, 7531726, 7643347, 30127646 ####[facility] [address] [place] [address] Calcium 8.9 mg/dL Normal 8.9-11.1 [facility] Comment on above: Performed By: #### 2 212275, 0922135, 6254052, 8558098, 0132932, 87849621, 0231197, 9272456, 83934880 ####[facility] [address] [place] [address] Chloride 108 mmol/L Normal 101-111 [facility] Comment on above: Performed By: #### 2 954860, 4848603, 7500532, 1135048, 0557533, 59450640, 9704315, 4837829, 46936421 ####[facility] [address] [place] [address] CO2 22 mmol/L Normal 21-31 [facility] Comment on above: Performed By: #### 2 277103, 6500812, 7855837, 4416017, 2236450, 47246075, 0417927, 6127034, 54991309 ####[facility] [address] [place] [address] Glucose mass conc 105 mg/dL Normal 55-199 [facility] Comment on above: Result Comment: If t his glucose result represents a fasting glucose, interpretation should refer to the following reference range: 55-99 mg/dL Performed By: #### 2 341297, 0322009, 4311312, 3410682, 0534258, 42033906, 0502737, 7748427, 69189737 ####[facility] [address] [place] [address] Potassium molar conc 3.5 mmol/L Normal 3.5-5.3 [facility] Comment on above: Performed By: #### 2 852381, 1585330, 1168926, 8946047, 3790159, 14552021, 1959425, 1204712, 28919895 ####[facility] [address] [place] [address] Sodium 139 mmol/L Normal 135-145 [facility] Comment on above: Performed By: #### 2 098036, 4754308, 2612032, 5637440, 1556121, 51278434, 3283635, 5201315, 54721956 ####[place] [address] [place] [address] CBC w/ Auto Diffon Erythrocyte distribution width Auto Ratio (RBC) 12.8 % Normal 10.9-14.2 [facility] Comment on above: Performed By: #### 2 743464, 7458908, 7995156, 2258112, 7818509, 24512847, 9173131, 4994860, 86107776 ####[address] [address] Erythrocytes (RBC) 5.0 E12/L Normal 4.3-5.9 [facility] Comment on above: Performed By: #### 2 973961, 2749843, 1397087, 5594709, 7378389, 69025098, 6227412, 3947322, 25353843 ####[address] [address] Hematocrit (HCT) 42.3 % Normal 34.0-46.0 [facility] Comment on above: Performed By: #### 2 390524, 6254276, 3997846, 1678421, 5398222, 32317167, 4846214, 9919142, 21058873 ####[address] [address] Hemoglobin mass conc (Bld) 14.5 g/dL Normal 12.0-16.0 [facility] Comment on above: Performed By: #### 2 430510, 1872249, 9521100, 8707405, 3539657, 65351747, 4426899, 8792527, 60370158 ####[address] [address] MCH 29.0 pg Normal 27.0-34.0 [facility] Comment on above: Performed By: #### 2 715502, 4638913, 8603781, 7415353, 4761570, 09340075, 6995135, 6844453, 48005166 ####[address] [place] [address] MCHC mass conc (RBC) 34.2 g/dL Normal 31.4-39.3 [facility] Comment on above: Performed By: #### 2 760220, 1789109, 5137456, 5261477, 8080098, 43273256, 8528714, 9551026, 85699226 ####[facility] [address] [place] [address] MCV 84.9 fL Normal 80.0-100.0 [facility] Comment on above: Performed By: #### 2 746485, 3781688, 4287339, 1358656, 5485716, 36864316, 9248459, 0785983, 81671209 ####[facility] [address] [place] [address] Platelet mean volume (PMV) 7.7 fL Normal 6.4-10.8 [facility] Comment on above: Performed By: #### 2 302476, 4015226, 4459208, 0557184, 6455053, 44015170, 9125682, 4084457, 81596682 ####[facility] [address] [place] [address] Platelets 255.0 E9/L Normal 150.0-500. 0 [facility] Comment on above: Performed By: #### 2 310808, 0590748, 3436092, 0398145, 1499812, 77272347, 4166330, 7391035, 32703674 ####[facility] [address] [place] [address] WBC (Leukocytes) 11.1 E9/L High 4.0-11.0 [facility] Comment on above: Performed By: #### 2 292888, 0149554, 5756935, 4235948, 3330879, 24881734, 7173514, 9914865, 71882176 ####[facility] [address] [place] [address] Ethanolon 07-29-2017 Ethanol mg/dL Normal <=7 [facility] Comment on above: Performed By: #### 2 391039 ####[facility] [address] [place] [address] Hep Func Panelon 07-29-2017 Bilirubin (direct) [facility] Abnormal 0.0-0.9 [facility] Comment on above: Result Comment: Resu lt verified by Discern Rule. Performed result UT (Unable to Calculate) was sent as an Alpha code due the inability to calculate a valid numeric value. Performed By: #### 2 310351, 4308123, 9387644, 5331467, 0490364, 00584626, 6791748, 6271850, 13068811 ####[facility] [address] [place] [address] Alanine aminotransferase (ALT) 22 Int._Unit/L Normal 6-46 [facility] Comment on above: Performed By: #### 2 624343, 9356412, 3887582, 3564834, 3305228, 78119177, 4262970, 7869604, 87406384 ####[facility] [address] [place] [address] Albumin 1.1 g/dL Normal 1.1-2.2 [facility] Comment on above: Performed By: #### 2 028454, 0802620, 1621537, 3263474, 3834251, 15429225, 7237218, 0053349, 96999255 ####[facility] [address] [place] [address] Albumin 4.0 g/dL Normal 3.3-5.0 [facility] Comment on above: Performed By: #### 2 726820, 4728987, 1285401, 8957651, 5463132, 95633453, 4504865, 5689575, 86829183 ####[facility] [address] [place] [address] Alkaline phosphatase (ALP) 77 Int._Unit/L Normal 21-98 [facility] Comment on above: Performed By: #### 2 124426, 5797891, 4520389, 1865081, 0789379, 19249808, 5766827, 7736813, 81784865 ####[facility] [address] [place] [address] Aspartate aminotransferase (AST) 19 Int._Unit/L Normal 5-43 [facility] Comment on above: Performed By: #### 2 639900, 4717240, 5977642, 4326053, 8321082, 97930353, 5443019, 7478738, 29519900 ####[facility] [address] [place] [address] Bilirubin (direct) mg/dL Normal 0.1-0.4 [facility] Comment on above: Performed By: #### 2 274338, 3860623, 2687895, 4330675, 6150775, 34769858, 5997519, 9218611, 54957765 ####[place] [address] [place] [address] Bilirubin (total) 0.4 mg/dL Normal 0.0-1.1 [facility] Comment on above: Performed By: #### 2 100017, 0505960, 7201844, 6080153, 8066321, 82507402, 2401827, 4475031, 18612516 ####[facility] [address] [place] [address] Globulin 3.5 g/dL Normal 1.4-4.0 [facility] Comment on above: Performed By: #### 2 132737, 9139749, 1839396, 7183667, 6905991, 80852126, 8658095, 7017488, 06056088 ####[facility] [address] [place] [address] Protein 7.5 g/dL Normal 6.0-7.8 [facility] Comment on above: Performed By: #### 2 884927, 2819997, 2067761, 8444177, 3871741, 95594085, 9132391, 0533438, 35462540 ####[facility] [facility] [address] [place] [address] Lipase Levelon 10-29-2017 Lipase 36 unit/L Normal 13-58 [facility] Comment on above: Performed By: #### 2 [id number], [id number], [id number], [id number], [id number], [id number], 1039170, 6668528, [id number] ####[facility] [address] [place] [address] Pre-Arrival Noteon 7 Pre-Arrival Note Pre-Arrival SummaryN valeria: , EBEN Current Date: 07/29/2017 18:16:05 EDTGender: Date of : Age: Pre-Arrival Type: EMSETA: 07/29/2017 18:25:[facility] Physician: Presenting Problem: suicidal/homicidalPre-Arriv al User: Soo Torre RN Source: Location: [address] [place] [address] Date/Time: 07/29/17 17:55:00[facility] Emergency Department Pre-Hospital Report Form Vital Signs: Pre-Hospital Report: Treatment in Route: Response to Treatment: Misc. Issues: Normal [facility] Progress Note-Nurseon 2016 Progress Note-Nurse Patient: PEPE MAGANA Age: 17 years Sex: Female : 2000 Associated Diagnoses: None Author: Shane YA, Sarah Chambers Progress Note Pt resting in room, suicidal precautions in place. Normal [facility] Salicylateon 07-29-2017 Salicylates mg/dL Low 03-29 [facility] Comment on above: Performed By: #### 2 [id number], [id number], 6232375, 1402483, 6627472, [id number], 3099815, 0994874, [id number] ####[facility] [address] [place] [address] U Drug Screenon 07-29-2017 AMPHETAMINES:PRTHR:PT :URINE:ORD:SCREEN>100 0 NG/ML Negative Normal Negative [facility] Comment on above: Result Comment: Nega tive Cutoff: <1000 ng/mL Performed By: #### 2 [id number] ####[address] [address] OPIATES:PRTHR:PT:URIN E:ORD:SCREEN Negative Normal Negative [facility] Comment on above: Result Comment: Nega tive Cutoff: <300 ng/mL Performed By: #### 2 714963 ####[place] [address] PHENCYCLIDINE:PRTHR:P T:URINE:ORD:SCREEN>25 NG/ML Negative Normal Negative [facility] Comment on above: Result Comment: Nega tive Cutoff: <25 ng/mLThese drug screen results are to be used for medical (i.e., treatment) purposes only. Unconfirmed drug screening results must not be used for non-medical purposes (e.g., employment testing, legal testing). Performed By: #### 2 [id number] ####[place] [address] TETRAHYDROCANNABINOL: PRTHR:PT:URINE:ORD:SC REEN>50 NG/ML Negative Normal Negative [facility] Comment on above: Result Comment: Nega tive Cutoff: <50 ng/mL Performed By: #### 2 325013 ####[facility] [address] [place] [address] Urine, barbiturates presence Negative Normal Negative [facility] Comment on above: Result Comment: Nega tive Cutoff: <200 ng/mL Performed By: #### 2 079295 ####[facility] [address] [place] [address] Urine, benzodiazepines presence Negative Normal Negative [facility] Comment on above: Result Comment: Nega tive Cutoff: <200 ng/mL Performed By: #### 2 999878 ####[facility] [address] [place] [address] Urine, cocaine presence Negative Normal Negative [facility] Comment on above: Result Comment: Nega tive Cutoff: <300 ng/mL Performed By: #### 2 146059 ####[facility] [address] [place] [address] UA With Cult Reflexon 2016 BACTERIA:PRTHR:PT:URI NE SED:ORD:MICROSCOPY.LI GHT 1+ /HPF Abnormal Trace [facility] Comment on above: Performed By: #### 1 [id number] ####[address] [address] Bilirubin Ql (U) Negative Normal Negative [facility] Comment on above: Performed By: #### 1 2327844 ####[address] [address] COLOR:TYPE:PT:URINE:N OM:AUTO YELLOW Normal Yellow [facility] Comment on above: Performed By: #### 1 2545262 ####[address] [address] Erythrocytes (RBC) 0-3 Normal 0-3 [facility] Comment on above: Performed By: #### 1 6566599 ####[address] [address] GLUCOSE:MCNC:PT:URINE :QN:TEST STRIP Negative Normal Negative [facility] Comment on above: Performed By: #### 1 7253120 ####[address] [address] KETONES:MCNC:PT:URINE :QN:TEST STRIP Negative Normal Negative [facility] Comment on above: Performed By: #### 1 [id number] ####[address] [address] LEUKOCYTES:PRTHR:PT:U RINE:ORD:AUTOMATED Negative Normal Negative [facility] Comment on above: Performed By: #### 1 4540923 ####[address] [address] UA Spec Desc Clean Catch Normal [facility] Comment on above: Performed By: #### 1 5298510 ####[facility] [address] [place] [address] Urine, clarity CLEAR Normal Clear [facility] Comment on above: Performed By: #### 1 4912029 ####[facility] [address] [place] [address] Urine, hemoglobin presence Negative Normal Negative [facility] Comment on above: Performed By: #### 1 9816342 ####[facility] [address] [facility] [address] Urine, leukocytes in sedmiment 0-5 Normal 0-5 [facility] Comment on above: Performed By: #### 1 2290193 ####[place] [place] [address] Urine, nitrite presence Negative Normal Negative [facility] Comment on above: Performed By: #### 1 7451619 ####[facility] [address] [place] [address] Urine, pH 6.0 [pH] Invalid Interpretation Code 5.0-9.0 [facility] Comment on above: Performed By: #### 1 7754657 ####[facility] [address] [place] [address] Urine, protein Negative Normal Negative [facility] Comment on above: Performed By: #### 1 7389704 ####[facility] [address] [address] Urine, specific gravity 1.015 Invalid Interpretation Code 1.005-1.03 0 [facility] Comment on above: Performed By: #### 1 8859616 ####[facility] [address] [address] Urine, squamous cells in sediment 3-4 Normal 0-2 [facility] Comment on above: Performed By: #### 1 6137307 ####[facility] [address] [place] [address] Urine, urobilinogen 0.2 {Gretel'U}/dL Normal 0.0-1.0 [facility] Comment on above: Performed By: #### 1 5373781 ####[facility] [address] [place] [address] eGFRon 07-29-2017 eGFR (black) mL/min/{1.73_m2} Normal >=59 [facility] Comment on above: Order Comment: Order added by Discern Expert. Result Comment: eGFR is race adjusted. AA=. Performed By: #### 2 520878, 6215484, 4016990, 1118366, 7524548, 29293896, 2945647, 9766812, 23300872 ####[facility] [address] [place] [address] eGFR (non-black) mL/min/{1.73_m2} Normal >=59 [facility] Comment on above: Order Comment: Order added by Discern Expert. Result Comment: [employer] Lead jorge kidney disease could be indicated at eGFR's of less than 60 mL/min/1.73m2. Kidney failure is indicated at less than 15 mL/min/1.73m2. Performed By: #### 2 742746, 5055301, 2176503, 1633590, 8012807, 02553485, 1884773, 3102647, 62647483 ####[facility] [address] [place] [address] Coding Summary.on 07-27-2017 Coding Summary. 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 However, the narrative phrase printed from the coding software may appear abbreviated, or result in slightly different terminology. Revised Coded By: Clarice Moeller Revised Date Saved: 07/27/2017 01:15 pm Normal [facility] Coding Summary. 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 However, the narrative phrase printed from the coding software may appear abbreviated, or result in slightly different terminology. Revised Coded By: Clarice Moeller Revised Date Saved: 07/27/2017 01:12 pm Normal [facility] ED Note-Physicianon 07-27-20 17 ED Note-Physician Patient: PEPE MAGANA Age: 17 years Sex: Female : 2000 Associated Diagnoses: None Author: Tray Todd PA-C Basic Information Time seen: Immediately upon arrival. 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 Arrival mode: Private vehicle. History limitation: Cognitive impairment. Additional information: Chief Complaint from Nursing Triage Note : Chief Complaint 07/25/2017 19:15 EDT Chief Complaint pt states that she is having sucidial and homicial thoughts of killing herself and her Caregiver and her grandma with a knife, does have a history of depression and suicidal thoughts, initally told critical care unit nurse she was SOB 07/24/2017 14:25 EDT Chief Complaint Pt arrives via squad with suicidal thoughts. States she wants to use a knife and kill herself. Pt states she was just discharged from [facility] for the same thing.' Per squad pt [...] Not DocumentedBee Stings- Sob.. Medications: (Selected) Documented MedicationsDocumentedcitalo pram 20 mg Tab: 20 mg = 1 tab(s), Oral, Daily, Refills(s) 0risperidone 1 mg oral tablet: Refills(s) 0. Past Medical/ Family/ Social History Medical history: ResolvedDiabetes ([id number]): Resolved.Suicidal plans ([id number]): Resolved.. Surgical history: None ([id number]).. Family history: No family history items have been selected or recorded.. Social history: Social & Psychosocial HabitsAlcohol Comment: denies. - 06/10/2017 18:11 - Kathy Vasquez RN N001/20/2017 Risk Assessment: Denies Alcohol Use10/11/2016 Frequency: DailySubstance Abuse Comment: denies. - 06/10/2017 [...] suicidal ideation. Rationale: discussed with firelands and log driver feels comfortable taking patient home today , [...] Bowel Sounds RLQ Present Eye Opening Response Js Spontaneously Best Motor Response Js Obeys simple commands Best Verbal Response [place] Oriented Js Coma Score 15 Domestic Concerns None Suicidal [...] Auto 58.1 % Lymph Auto 33.7 % [place] Auto 6.8 % Eos Auto 1.0 % Basophil Auto 0.4 % Neutro Absolute 6.6 E9/L Lymph Absolute 3.9 E9/L [place] Absolute 0.8 E9/L Eos Absolute 0.1 E9/L [...] Auto 57.1 % Lymph Auto 35.5 % [place] Auto 6.2 % Eos Auto 0.8 % Basophil Auto 0.4 % Neutro Absolute 5.7 E9/L Lymph Absolute 3.6 E9/L [place] Absolute 0.6 E9/L Eos Absolute 0.1 E9/L [...] abnormalities Skin Turgor Elastic Mucous Membrane Color Marinette Mucous Membrane Description Moist Eye Opening Response [place] Spontaneously Best Motor Response [place] Obeys simple commands Best Verbal Response [place] Oriented Js Coma Score 15 History of [...] % Impression and Plan Diagnosis Suicidal ideation ([id number] R45.851, Discharge, Medical) Plan Condition: Stable. Disposition: Medically cleared, Discharged: Time 07/25/17 21:19:00, to home. Patient was given the following educational materials: Depression, Adult, Nggv-jj-Vdek, Schizophrenia, Suicidal Feelings: How to Help Yourself, Suicidal Feelings: How to Help Yourself, Schizophrenia, Depression, Adult, Wnnk-xs-Cvpi. Follow up with: Barbara Mcknight In 3 days 07/28/2017; [facility] In 3 days 07/28/2017. Counseled: Patient, Family, Regarding diagnosis, Regarding diagnostic results, Regarding treatment plan, Regarding prescription, Patient indicated understanding of instructions. Addendum Chart reviewed and based on data available the care seems appropriate. [facility] Comment on above: Result Comment: Elec tronically Signed By: Tray Todd PA-C\.br\Date and Time Signed: 07/25/17 21:20 EDT\.br\Electronically Co-Signed By: Jamee Fernandes DO\.br\Date and Time Co-Signed: 07/27/17 16:46 EDT ED Note-Physician Patient: PEPE MAGANA Age: 17 years Sex: Female : 2000 Associated Diagnoses: None Author: Can LOZANO, Tyson Jean Basic Information Time seen: Date & time 07/24/17 14:22:00. History source: Patient, EMS. Arrival mode: Ambulance. History limitation: Cognitive impairment, Patient is a poor historian. History of Present Illness This is a 17-year-old female presents to the emergency department via EMS. Patient states that she was at [facility] in [facility] until this morning. She states that she was there about 9 days and discharged this morning. She states that she has had suicidal thoughts since yesterday. She states that she is specifically think about cutting herself with a knife. Patient states that she had a right elbow from [place] by her grandmother who is her legal guardian. Patient is unaware of the medications she is taking stating that her grandmother has the medications. Patient does not know if they changed any of her medications in [place]. She states she was medicated there. She [...] (Selected)Severity Not DocumentedBee Stings- Sob.. Medications: (Selected) PrescriptionsPrescribedCipr o 250 mg Tab: 250 mg = 1 tab(s), Oral, q12hr, # 14 tab(s), Refills(s) 0Documented MedicationsDocumentedcitalo pram 20 mg Tab: 20 mg = 1 tab(s), Oral, Daily, Refills(s) 0risperidone 1 mg oral tablet: Refills(s) 0. Past Medical/ Family/ Social History Medical history: ResolvedDiabetes ([id number]): Resolved.Suicidal plans ([id number]): Resolved., Schizophrenia, bipolar disorder, depression. Surgical history: None ([id number]).. Family history: No family history items have [...] here because she was let out of [facility] due to the fact she wanted to [...] Once, Stop date 07/24/17 14:24:00 EDT, Nurse collectCompletedAcetaminoph en Level: Blood, Stat collect, 07/24/17 14:24:00 EDT, [...] Stat collect, Collected, 07/24/17 14:36:00 EDT by LUCILA, Once, Stop date 07/24/17 14:36:00 EDT, Lab Collect, Venous Draw, YesExtra SST Tube: Blood, Stat collect, Collected, 07/24/17 14:36:00 EDT by LUCILA, Once, Stop date 07/24/17 14:36:00 EDT, Lab [...] Auto 57.1 % Lymph Auto 35.5 % [place] Auto 6.2 % Eos Auto 0.8 % Basophil Auto 0.4 % Neutro Absolute 5.7 E9/L Lymph Absolute 3.6 E9/L [place] Absolute 0.6 E9/L Eos Absolute 0.1 E9/L [...] Impression and Plan Diagnosis Hx of schizophrenia (SCG31-VR Z86.59, Discharge, Medical) Plan Condition: Stable. Disposition: Discharged: Time 07/24/17 16:51:00, to home. Patient was given the following educational materials: Depression, Adult, Reta-cw-Ebvs. Follow up with: Barbara Mcknight In 3 [...] reviewed. Disposition was discussed and agreed upon. [facility] Comment on above: Result Comment: Elec tronically [...] REPORT Dictated: 07/26/2017 8:26 am Marie Arrington MD. Signed (Electronic Signature): 07/26/2017 8:26 am Signed by: Marie Arrington MD Transcribed by: DENIA Technologist: ARABELLA Clark [facility] Auto Diffon 07-25-2017 Basophils Auto #/vol (Bld) 0.0 E9/L Normal 0.0-0.2 [facility] Comment on above: Order Comment: Order Added by Discern Expert. Performed By: #### 2 [id number] ####[facility] [address] [place] [address] Basophils Auto #/vol (Bld) 0.4 % Normal 0.0-2.0 [facility] Comment on above: Order Comment: Order Added by Discern Expert. Performed By: #### 2 [id number] ####[facility] [address] [place] [address] Eosinophils 0.1 E9/L Normal 0.0-0.5 [facility] Comment on above: Order Comment: Order Added by Discern Expert. Performed By: #### 2 4397064 ####[facility] [address] [place] [address] Eosinophils/100 leukocytes 1.0 % Normal 0.0-8.0 [facility] Comment on above: Order Comment: Order Added by Discern Expert. Performed By: #### 2 [id number] ####[facility] [address] [place] [address] Lymphocytes 3.9 E9/L Normal 1.0-4.0 [facility] Comment on above: Order Comment: Order Added by Discern Expert. Performed By: #### 2 4474447 ####[address] [address] Lymphocytes/100 leukocytes 33.7 % Normal 14.0-50.0 [facility] Comment on above: Order Comment: Order Added by Discern Expert. Performed By: #### 2 8595658 ####[address] [address] Monocytes 0.8 E9/L Normal 0.2-1.0 [facility] Comment on above: Order Comment: Order Added by Discern Expert. Performed By: #### 2 9566087 ####[address] [address] Monocytes/100 leukocytes 6.8 % Normal 4.0-14.0 [facility] Comment on above: Order Comment: Order Added by Discern Expert. Performed By: #### 2 2829944 ####[address] [address] Neutrophils 6.6 E9/L Normal 2.0-7.5 [facility] Comment on above: Order Comment: Order Added by Discern Expert. Performed By: #### 2 6027111 ####[address] [address] Neutrophils/100 leukocytes 58.1 % Normal 36.0-75.0 [facility] Comment on above: Order Comment: Order Added by Discern Expert. Performed By: #### 2 2844860 ####[address] [address] CBC w/ Auto Diffon 7 Erythrocyte distribution width Auto Ratio (RBC) 12.5 % Normal 10.9-14.2 [facility] Comment on above: Performed By: #### 2 8236750 ####[address] [address] Erythrocytes (RBC) 4.8 E12/L Normal 4.3-5.9 [facility] Comment on above: Performed By: #### 2 8500801 ####[place] [place] [address] Hematocrit (HCT) 40.4 % Normal 34.0-46.0 [facility] Comment on above: Performed By: #### 2 5835237 ####[address] [address] Hemoglobin mass conc (Bld) 13.8 g/dL Normal 12.0-16.0 [facility] Comment on above: Performed By: #### 2 6259936 ####[address] [address] MCH 28.7 pg Normal 27.0-34.0 [facility] Comment on above: Performed By: #### 2 3740072 ####[address] [address] MCHC mass conc (RBC) 34.2 g/dL Normal 31.4-39.3 [facility] Comment on above: Performed By: #### 2 2607338 ####[address] [address] MCV 84.0 fL Normal 80.0-100.0 [facility] Comment on above: Performed By: #### 2 3032961 ####[address] [address] Platelet mean volume (PMV) 7.4 fL Normal 6.4-10.8 [facility] Comment on above: Performed By: #### 2 7226259 ####[address] [place] [address] Platelets 267.0 E9/L Normal 150.0-500. 0 [facility] Comment on above: Performed By: #### 2 4429285 ####[address] [address] WBC (Leukocytes) 11.4 E9/L High 4.0-11.0 [facility] Comment on above: Performed By: #### 2 5088403 ####[facility] [address] [place] [address] CMPon 07-25-2017 Alanine aminotransferase (ALT) 25 Int._Unit/L Normal 6-46 [facility] Comment on above: Performed By: #### 2 6311392 ####[facility] [address] [place] [address] Albumin 1.3 g/dL Normal 1.1-2.2 [facility] Comment on above: Performed By: #### 2 8031450 ####[facility] [address] [place] [address] Albumin 3.9 g/dL Normal 3.3-5.0 [facility] Comment on above: Performed By: #### 2 2938875 ####[address] [address] Alkaline phosphatase (ALP) 82 Int._Unit/L Normal 21-98 [facility] Comment on above: Performed By: #### 2 2625719 ####[address] [address] Aspartate aminotransferase (AST) 25 Int._Unit/L Normal 5-43 [facility] Comment on above: Performed By: #### 2 0066764 ####[address] [address] Bilirubin (total) 0.4 mg/dL Normal 0.0-1.1 [facility] Comment on above: Performed By: #### 2 8799518 ####[facility] [address] [place] [address] BUN/Creatinine Ratio 12 No Units Normal 10-20 [facility] Comment on above: Performed By: #### 2 6832768 ####[place] [place] [address] Creatinine 0.9 mg/dL Normal 0.5-1.3 [facility] Comment on above: Performed By: #### 2 2409823 ####[facility] [address] [place] [address] Globulin 3.1 g/dL Normal 1.4-4.0 [facility] Comment on above: Performed By: #### 2 8805060 ####[facility] [address] [facility] [address] Protein 7.0 g/dL Normal 6.0-7.8 [facility] Comment on above: Performed By: #### 2 4511824 ####[facility] [address] [facility] [address] Urea nitrogen 11 mg/dL Normal 5-21 [facility] Comment on above: Performed By: #### 2 3818618 ####[facility] [address] [place] [address] Anion gap 16 mmol/L Normal 6-16 [facility] Comment on above: Performed By: #### 2 6969314 ####[facility] [address] [place] [address] Calcium 8.9 mg/dL Normal 8.9-11.1 [facility] Comment on above: Performed By: #### 2 6166695 ####[facility] [address] [facility] [address] Chloride 106 mmol/L Normal 101-111 [facility] Comment on above: Performed By: #### 2 9148969 ####[facility] [address] [place] [address] CO2 21 mmol/L Normal 21-31 [facility] Comment on above: Performed By: #### 2 9446590 ####[facility] [address] [facility] [address] Glucose mass conc 129 mg/dL Normal 55-199 [facility] Comment on above: Result Comment: If t his glucose result represents a fasting glucose, interpretation should refer to the following reference range: 55-99 mg/dL Performed By: #### 2 [id number] ####[facility] [address] [facility] [address] Potassium molar conc 3.3 mmol/L Low 3.5-5.3 [facility] Comment on above: Performed By: #### 2 1437812 ####[facility] [address] [place] [address] Sodium 140 mmol/L Normal 135-145 [facility] Comment on above: Performed By: #### 2 5546415 ####[place] [address] ED Clinical Summaryon 2016 ED Clinical Summary (Inserted Image. Silvia ble to display) [address] [address] ED Clinical SummaryPerson Information Name: CRIS MAGANA/HarlanDemetris Age: 17 Years : 2000 12:00 AM Sex: Female Language:Malawian PCP: Barbara Mcknight MD Marital Status:Single Visit [...] PM 07/25/2017 9:31 PM 07/25/2017 9:31 PM ADDRESS:[address] [facility] [id number] PHYS DOC NOTES: MEDICAL INFORMATION: Prescriptions Given:PATIENT EDUCATION INFORMATION: Instructions:Suicidal Feelings: How to Help Yourself; Schizophrenia; Depression, Adult, Vscp-ce-Jqmb Follow up:With: Address: When: [facility] In 3 days 07/28/2017 With: Address: When: Barbara Mcknight [address] [place] [address] Business (1) In 3 days DIAGNOSIS:Acute depression; Schizophrenia; Suicidal ideation Normal [facility] ED Patient Education Noteon 07-25-2017 ED Patient [...] day. It is best if it is syvi-ap-tyxz. Remember, they will want to help you.? [...] your local emergency services (911 in the [place]).? Call a suicide hotline:? 2-143-415-TALK ( ) in the [place].? 8-170-FCDXEUP ( ) in the [place].? in the [facility] for [place]-speaking counselors.? 5-219-500-4TTY ( ) in the [facility] for TTY users.? Visit the following websites for information and help:? National Suicide Prevention Lifeline: www.suicidepreventionlifeli ne.org? Hopeline: www.hopeline.com? [place] Foundation for Suicide Prevention: www.afsp.org? For lesbian, hooks, bisexual, transgender, or questioning youth, contact The New Project:? 2-117-5-U-NEW ( ) in the [place].? www.thetrevorproject.org? In [place], treatment resources are listed in each province with listings available under [employer] or similar titles. Another source for Crisis Centres by Province is located at http://www.suicidepreventio n.ca/ad-vdzare-mxt/find-a-c qwfrp-lmazvs-ofc/crisis-amado tresDocument Released: 03/23/2004 Document Revised: 12/09/2012 Document Reviewed: 01/12/2015ExitCare? Patient Information ?2014 [employer]. This information is not intended to replace advice given to you by your health care provider. Make sure you discuss any questions you have with your health care provider.SchizophreniaSchiz ophrenia is a mental illness. It may cause [...] functioning) for at least 6 months or longer.TREATMENTSchizophren ia is a long-term illness. It is best [...] 05/20/2014 Document Reviewed: 12/10/2013ExitCare? Patient Information ?2015 [employer]. This information is not intended to replace advice given to you by your health care provider. Make sure you discuss any questions you have with your health care provider.DepressionDepressi on is feeling sad, low, down in the [...] 02/01/2015 Document Reviewed: 01/16/2013ExitCare? Patient Information ?2014 [employer]. This information is not intended to replace advice given to you by your health care provider. Make sure you discuss any questions you have with your health care provider. Normal [facility] ED Patient Summaryon 017 ED Patient Summary (Inserted Image. Silvia ble to display) [address] [address] Patient Discharge Instructions Person Information Name: CRIS MAGANA Age: 17 Years Date: 07/25/2017 7:07 PMDischarge Diagnosis: Acute depression; Schizophrenia; Suicidal ideation Primary Care Physician: Juan Luis MEDINA, Barbara Jean Provider InformationPrimary Provider: Kaylie Fernandes DO Doctor Of Naprapathy:Tray Todd PA-C The exam and treatment you received in the Emergency Department were for an urgent problem and are not intended as complete care. It is important that you follow up with a doctor, nurse practitioner, or physician?s assistant mechanic for ongoing care. If your symptoms become worse or you do not improve as expected and you are unable to reach your usual health care provider, you should return to the Emergency Department. We are available 24 hours a day. CRIS MAGANA has been given the following list of patient education materials, prescriptions and follow-up instructions: Follow-up Instructions:With: Address: When: [facility] In 3 days 07/28/2017 With: Address: When: Barbara Mcknight [address] [place] [address] [address] [id number] Business (1) In 3 days In the event that this physician does not participate in your insurance network, please consult with your insurance company to find a nearby participating provider. Patient Education Materials:Suicidal Feelings: How to Help Yourself; Schizophrenia; Depression, Adult, Ovir-bj-Qvtc Medications Given:Medication Dose Route ibuprofen 600.00 mg Oral Medication Information:Medications to Continue with No ChangesOther Medicationscitalopram (citalopram 20 mg Tab) 1 Tabs By Mouth every day.risperidone (risperidone 1 mg oral tablet) Comment: Pharmacy Information: JOSE CARL[facility] Berry Thank you for choosing [facility] Patient Education Materials: Suicidal Feelings, How [...] day. It is best if it is ndgy-xx-hsay. Remember, they will want to help you.? [...] your local emergency services (911 in the [place]).? Call a suicide hotline:? 8-824-367-TALK ( ) in the [place].? 2-367-ZWSVOBO ( ) in the [place].? in the [place] for [place]-speaking counselors.? 6-329-268-4TTY ( ) in the [facility] for TTY users.? Visit the following websites for information and help:? National Suicide Prevention Lifeline: www.suicidepreventionlifeli ne.org? Hopeline: www.hopeline.com? [place] Foundation for Suicide Prevention: www.afsp.org? For lesbian, hooks, bisexual, transgender, or questioning youth, contact The New Project:? 1-348-0-U-NEW ( ) in the [place].? www.thetrevorproject.org? In [place], treatment resources are listed in each province with listings available under [employer] or similar titles. Another source for Crisis Centres by Province is located at http://www.suicidepreventio n.ca/wa-jxqyui-jfu/find-a-c rbplu-xryoss-amu/crisis-amado tresDocument Released: 03/23/2004 Document Revised: 12/09/2012 Document Reviewed: 01/12/2015ExitCare? Patient Information ?2015 [employer]. This information is not intended to replace advice given to you by your health care provider. Make sure you discuss any questions you have with your health care provider.SchizophreniaSchiz ophrenia is a mental illness. It may cause [...] functioning) for at least 6 months or longer.TREATMENTSchizophren ia is a long-term illness. It is best [...] 05/20/2014 Document Reviewed: 12/10/2013ExitCare? Patient Information ?2015 [facility]. This information is not intended to replace advice given to you by your health care provider. Make sure you discuss any questions you have with your health care provider.DepressionDepressi on is feeling sad, low, down in the [...] 02/01/2015 Document Reviewed: 01/16/2013ExitCare? Patient Information ?2014 [employer]. This information is not intended to replace advice given to you by your health care provider. Make sure you discuss any questions you have with your health care provider.MATT German ANGELINA M , have received the following patient education materials/instructions and have verbalized understanding: Patient Education Materials: Suicidal Feelings: How to Help Yourself; Schizophrenia; Depression, Adult, Qvub-ox-Jjdn Follow-up Instructions: With: Address: When: [facility] In 3 days 07/28/2017 With: Address: When: Barbara Mcknight [address] [place] [address] [address] [address] [facility] (5) In 3 days Prescriptions: Patient Signature Date Clinician/Nurse Signature Date 07/25/17 21:31:42 Normal [facility] Ethanolon 07-25-2017 Ethanol mg/dL Normal <=7 [facility] Comment on above: Performed By: #### 2 [id number] ####[facility] [address] [place] [address] Progress Note-Nurseon 2016 Progress Note-Nurse 1930- patient belong ings placed in bag and [...] she will be able to eat. verbalizes understanding.194- laboratory @ bedside. urine specimen sent to [id number]- patient resting in bed with television on. denies any needs.2014- patient resting in bed, caregiver out of room @ this [id number]- pt resting in bed, denies any needs. visible from nurses [id number]- visible from nurses station. denies any [id number]- pt on telephone with [facility] @ this time.2109- provided sandwhich and pepsi per request. vitals assessed and [id number]- patient states that [facility] told her she was going to be admitted . TASHI Feliz spoke with P @ this time. they states that patient has a follow up appointment tomorrow and is to be discharged and follow up as before. in room to discharge patient. patient and caregiver verbalize understanding. belongings brought to room. patient dressed and ambulated out of ED. Normal [facility] U Drug Screenon 07-25-2017 AMPHETAMINES:PRTHR:PT :URINE:ORD:SCREEN>100 0 NG/ML Negative Normal Negative [facility] Comment on above: Result Comment: Nega tive Cutoff: <1000 ng/mL Performed By: #### 2 [id number] ####[facility] [address] [place] [address] OPIATES:PRTHR:PT:URIN E:ORD:SCREEN Negative Normal Negative [facility] Comment on above: Result Comment: Nega tive Cutoff: <300 ng/mL Performed By: #### 2 1015678 ####[facility] [address] [place] [address] PHENCYCLIDINE:PRTHR:P T:URINE:ORD:SCREEN>25 NG/ML Negative Normal Negative [facility] Comment on above: Result Comment: Nega tive Cutoff: <25 ng/mLThese drug screen results are to be used for medical (i.e., treatment) purposes only. Unconfirmed drug screening results must not be used for non-medical purposes (e.g., employment testing, legal testing). Performed By: #### 2 [id number] ####[address] [address] TETRAHYDROCANNABINOL: PRTHR:PT:URINE:ORD:SC REEN>50 NG/ML Negative Normal Negative [facility] Comment on above: Result Comment: Nega tive Cutoff: <50 ng/mL Performed By: #### 2 [id number] ####[facility] [address] [place] [address] Urine, barbiturates presence Negative Normal Negative [facility] Comment on above: Result Comment: Nega tive Cutoff: <200 ng/mL Performed By: #### 2 6056941 ####[facility] [address] [place] [address] Urine, benzodiazepines presence Negative Normal Negative [facility] Comment on above: Result Comment: Nega tive Cutoff: <200 ng/mL Performed By: #### 2 7621333 ####[facility] [address] [place] [address] Urine, cocaine presence Negative Normal Negative [facility] Comment on above: Result Comment: Nega tive Cutoff: <300 ng/mL Performed By: #### 2 7592112 ####[facility] [address] [place] [address] Urinalysison 07-25-2017 BACTERIA:PRTHR:PT:URI NE SED:ORD:MICROSCOPY.LI GHT 1+ /HPF Abnormal Trace [facility] Comment on above: Performed By: #### 2 6690929 ####[facility] [address] [place] [address] Bilirubin Ql (U) Negative Normal Negative [facility] Comment on above: Performed By: #### 2 1745234 ####[address] [address] COLOR:TYPE:PT:URINE:N OM:AUTO YELLOW Normal Yellow [facility] Comment on above: Performed By: #### 2 0087721 ####[address] [address] Erythrocytes (RBC) 0-3 Normal 0-3 [facility] Comment on above: Performed By: #### 2 4050625 ####[address] [address] GLUCOSE:MCNC:PT:URINE :QN:TEST STRIP Negative Normal Negative [facility] Comment on above: Performed By: #### 2 9915184 ####[address] [address] KETONES:MCNC:PT:URINE :QN:TEST STRIP Negative Normal Negative [facility] Comment on above: Performed By: #### 2 4541471 ####[address] [address] LEUKOCYTES:PRTHR:PT:U RINE:ORD:AUTOMATED Negative Normal Negative [facility] Comment on above: Performed By: #### 2 2034689 ####[address] [address] UA Spec Desc Clean Catch Normal [facility] Comment on above: Performed By: #### 2 8492240 ####[address] [address] Urine, clarity CLEAR Normal Clear [facility] Comment on above: Performed By: #### 2 1589229 ####[address] [address] Urine, hemoglobin presence TRACE Abnormal Negative [facility] Comment on above: Performed By: #### 2 9169160 ####[address] [address] Urine, leukocytes in sedmiment 0-5 Normal 0-5 [facility] Comment on above: Performed By: #### 2 6662676 ####[facility] [address] [place] [address] Urine, mucus presence in sediment TRACE Normal [facility] Comment on above: Performed By: #### 2 7474751 ####[facility] [address] [place] [address] Urine, nitrite presence Negative Normal Negative [facility] Comment on above: Performed By: #### 2 5239487 ####[facility] [address] [place] [address] Urine, pH 6.0 [pH] Invalid Interpretation Code 5.0-9.0 [facility] Comment on above: Performed By: #### 2 7014665 ####[facility] [address] [place] [address] Urine, protein Negative Normal Negative [facility] Comment on above: Performed By: #### 2 6353980 ####[facility] [address] [place] [address] Urine, specific gravity 1.025 Invalid Interpretation Code 1.005-1.03 0 [facility] Comment on above: Performed By: #### 2 5008881 ####[facility] [address] [place] [address] Urine, squamous cells in sediment 5-8 Normal 0-2 [facility] Comment on above: Performed By: #### 2 0980642 ####[facility] [address] [place] [address] Urine, urobilinogen 0.2 {Gretel'U}/dL Normal 0.0-1.0 [facility] Comment on above: Performed By: #### 2 1278178 ####[facility] [address] [place] [address] eGFRon 07-25-2017 eGFR (black) mL/min/{1.73_m2} Normal >=59 [facility] Comment on above: Order Comment: Order added by Discern Expert. Result Comment: eGFR is race adjusted. AA=. Performed By: #### 2 [id number] ####[place] [address] [place] [address] eGFR (non-black) mL/min/{1.73_m2} Normal >=59 [facility] Comment on above: Order Comment: Order added by Discern Expert. Result Comment: [employer] Lead jorge kidney disease could be indicated at eGFR's of less than 60 mL/min/1.73m2. Kidney failure is indicated at less than 15 mL/min/1.73m2. Performed By: #### 2 8801226 ####[address] [address] Acetamnphn Lvlon 07-24-2017 Acetaminophen mass conc <10 Low 15-30 [facility] Comment on above: Performed By: #### 2 967163, 9023345, 4947750, 93334182, 7719739, 5222630 ####[address] [address] Auto Diffon 07-24-2017 Basophils Auto #/vol (Bld) 0.0 E9/L Normal 0.0-0.2 [facility] Comment on above: Order Comment: Order Added by Discern Expert. Performed By: #### 2 218993, 1021845, 6150337, 19967382, 0692272, 5086914 ####[address] [address] Basophils Auto #/vol (Bld) 0.4 % Normal 0.0-2.0 [facility] Comment on above: Order Comment: Order Added by Discern Expert. Performed By: #### 2 206886, 3424680, 0661286, 13384931, 6159891, 5596780 ####[place] [place] [address] Eosinophils 0.1 E9/L Normal 0.0-0.5 [facility] Comment on above: Order Comment: Order Added by Discern Expert. Performed By: #### 2 832728, 9655270, 1029401, 26208978, 7388080, 4418431 ####[address] [place] [address] Eosinophils/100 leukocytes 0.8 % Normal 0.0-8.0 [facility] Comment on above: Order Comment: Order Added by Nita Expert. Performed By: #### 2 138372, 8158727, 6115481, 62436929, 4599481, 4266591 ####[facility] [address] [place] [address] Lymphocytes 3.6 E9/L Normal 1.0-4.0 [facility] Comment on above: Order Comment: Order Added by Nita Expert. Performed By: #### 2 945460, 9320626, 2027246, 64214128, 9774671, 4543758 ####[facility] [address] [place] [address] Lymphocytes/100 leukocytes 35.5 % Normal 14.0-50.0 [facility] Comment on above: Order Comment: Order Added by Nita Expert. Performed By: #### 2 337726, 6547593, 7955224, 00894646, 5222336, 8027351 ####[facility] [address] [place] [address] Monocytes 0.6 E9/L Normal 0.2-1.0 [facility] Comment on above: Order Comment: Order Added by Nita Expert. Performed By: #### 2 462482, 5212990, 8622799, 48433700, 7419245, 8486172 ####[facility] [address] [place] [address] Monocytes/100 leukocytes 6.2 % Normal 4.0-14.0 [facility] Comment on above: Order Comment: Order Added by Nita Expert. Performed By: #### 2 348599, 4209406, 5638940, 12944711, 1193185, 3907218 ####[facility] [address] [place] [address] Neutrophils 5.7 E9/L Normal 2.0-7.5 [facility] Comment on above: Order Comment: Order Added by Nita Expert. Performed By: #### 2 686842, 3104681, 2623658, 14415643, 4176405, 6970703 ####[place] [place] [address] Neutrophils/100 leukocytes 57.1 % Normal 36.0-75.0 [facility] Comment on above: Order Comment: Order Added by Discern Expert. Performed By: #### 2 252972, 0593861, 7279938, 00120191, 5861612, 2821049 ####[address] [address] CBC w/ Auto Diffon Erythrocyte distribution width Auto Ratio (RBC) 12.9 % Normal 10.9-14.2 [facility] Comment on above: Performed By: #### 2 390526, 7714319, 8826735, 30685277, 4964640, 7188590 ####[address] [address] Erythrocytes (RBC) 5.0 E12/L Normal 4.3-5.9 [facility] Comment on above: Performed By: #### 2 025472, 2068902, 2833571, 16541791, 2827527, 3826989 ####[address] [address] Hematocrit (HCT) 42.4 % Normal 34.0-46.0 [facility] Comment on above: Performed By: #### 2 211811, 7636339, 3245364, 11834146, 9770827, 9848856 ####[place] [place] [address] Hemoglobin mass conc (Bld) 14.7 g/dL Normal 12.0-16.0 [facility] Comment on above: Performed By: #### 2 870571, 3237676, 9860760, 82191045, 0787631, 9587259 ####[place] [place] [address] MCH 29.2 pg Normal 27.0-34.0 [facility] Comment on above: Performed By: #### 2 316347, 2841683, 3553237, 63444968, 4718386, 0254304 ####[place] [place] [address] MCHC mass conc (RBC) 34.6 g/dL Normal 31.4-39.3 [facility] Comment on above: Performed By: #### 2 892897, 2205817, 6253615, 76462228, 7187218, 4304341 ####[facility] [address] [place] [address] MCV 84.4 fL Normal 80.0-100.0 [facility] Comment on above: Performed By: #### 2 793582, 6248859, 7608695, 01333042, 5279139, 2611515 ####[address] [address] Platelet mean volume (PMV) 7.8 fL Normal 6.4-10.8 [facility] Comment on above: Performed By: #### 2 761570, 9622776, 8490769, 39298644, 3566679, 5262007 ####[address] [address] Platelets 288.0 E9/L Normal 150.0-500. 0 [facility] Comment on above: Performed By: #### 2 395082, 9783900, 2642341, 49290700, 9955304, 8283308 ####[address] [address] WBC (Leukocytes) 10.1 E9/L Normal 4.0-11.0 [facility] Comment on above: Performed By: #### 2 255994, 7662573, 3778032, 38191940, 0787202, 2876099 ####[address] [place] [address] CMPon 07-24-2017 Alanine aminotransferase (ALT) 27 Int._Unit/L Normal 6-46 [facility] Comment on above: Performed By: #### 2 141255, 1115674, 1363043, 40004777, 7122143, 1918137 ####[facility] [address] [place] [address] Albumin 1.1 g/dL Normal 1.1-2.2 [facility] Comment on above: Performed By: #### 2 481864, 9293973, 4702896, 24858325, 8797376, 5300227 ####[facility] [address] [place], [place] [address] Albumin 4.0 g/dL Normal 3.3-5.0 [facility] Comment on above: Performed By: #### 2 209688, 2023641, 0763948, 23477752, 9016052, 1791160 ####[place] [address] Alkaline phosphatase (ALP) 82 Int._Unit/L Normal 21-98 [facility] Comment on above: Performed By: #### 2 620764, 2953824, 5298920, 33611506, 3903504, 8320572 ####[place] [address] Aspartate aminotransferase (AST) 23 Int._Unit/L Normal 5-43 [facility] Comment on above: Performed By: #### 2 911661, 6891250, 6698760, 66968220, 3569911, 7780698 ####[place] [address] Bilirubin (total) 0.4 mg/dL Normal 0.0-1.1 [facility] Comment on above: Performed By: #### 2 944498, 7959032, 7456775, 94922159, 6528328, 1831302 ####[place] [place] [address] BUN/Creatinine Ratio 16 No Units Normal 10-20 [facility] Comment on above: Performed By: #### 2 258643, 5061539, 8054454, 34175586, 1310515, 3151321 ####[facility] [address] [place] [address] Creatinine 0.8 mg/dL Normal 0.5-1.3 [facility] Comment on above: Performed By: #### 2 903700, 7102180, 1881220, 47280111, 2951664, 9652234 ####[facility] [address] [place] [address] Globulin 3.5 g/dL Normal 1.4-4.0 [facility] Comment on above: Performed By: #### 2 729964, 9624611, 0348567, 39625294, 9573918, 7671957 ####[facility] [address] [place] [address] Protein 7.5 g/dL Normal 6.0-7.8 [facility] Comment on above: Performed By: #### 2 134440, 3880529, 5372044, 57819492, 0947377, 2786887 ####[facility] [address] [place] [address] Urea nitrogen 13 mg/dL Normal 5-21 [facility] Comment on above: Performed By: #### 2 007073, 7632090, 1066508, 04580596, 3634463, 0859138 ####[facility] [address] [place] [address] Anion gap 13 mmol/L Normal 6-16 [facility] Comment on above: Performed By: #### 2 815314, 2864670, 9404763, 15634323, 2475965, 6875941 ####[facility] [address] [place] [address] Calcium 8.8 mg/dL Low 8.9-11.1 [facility] Comment on above: Performed By: #### 2 413204, 9385206, 6845012, 21375753, 9794084, 7606328 ####[facility] [address] [place] [address] Chloride 101 mmol/L Normal 101-111 [facility] Comment on above: Performed By: #### 2 484669, 6327615, 5276474, 74911383, 8537449, 4172875 ####[facility] [address] [place] [address] CO2 25 mmol/L Normal 21-31 [facility] Comment on above: Performed By: #### 2 431106, 3352052, 8046466, 08321087, 7021758, 7402965 ####[facility] [address] [place] [address] Glucose mass conc 143 mg/dL Normal 55-199 [facility] Comment on above: Result Comment: If t his glucose result represents a fasting glucose, interpretation should refer to the following reference range: 55-99 mg/dL Performed By: #### 2 633287, 1000214, 8817087, 56282191, 6730604, 5783296 ####[facility] [address] [place] [address] Potassium molar conc 3.3 mmol/L Low 3.5-5.3 [facility] Comment on above: Performed By: #### 2 875279, 9219345, 9445031, 76500808, 1720720, 7256243 ####[facility] [address] [place] [address] Sodium 136 mmol/L Normal 135-145 [facility] Comment on above: Performed By: #### 2 125801, 6282203, 0301639, 70534095, 3093905, 6623262 ####[facility] [address] [place] [address] ED Clinical Summaryon 2016 ED Clinical Summary (Inserted Image. Silvia ble to display) [address] [address] ED Clinical SummaryPerson Information Name: CRIS MAGANA/HarlanDemetris Age: 17 Years : 2000 12:00 AM Sex: Female Language:Malawian PCP: Barbara Mcknight MD Marital Status:Single Visit [...] PM 07/24/2017 5:10 PM 07/24/2017 5:10 PM ADDRESS:[address] [place] [id number] PHYS DOC NOTES: MEDICAL INFORMATION: Prescriptions Given:PATIENT EDUCATION INFORMATION: Instructions:Depression, Adult, Rznz-hg-Nsal Follow up:With: Address: When: Barbara Mcknight [address] [place] [address] [address], [place] [address] Business (1) In 3 days 07/27/2017 Comments: Follow-up as an outpatient with your psychiatrist as directed by mental services.The patient was advised to return to the ER immediately if symptoms worsen, problems arise, or any other issues develop. Ensure that you follow up as directed. Patient is released with her guardian/grandmother. DIAGNOSIS:Anxiety; Depression; Hx of schizophrenia [facility] ED Note-Nursingon 07-24-2017 ED Note-Nursing Patient and grandmot her given discharge instructions at this time. Patient and grandmother instructed on importance of following up with her counceling appt on at 7pm. Grandmother states she is aware of the importance of her attending as well. All belongings returned. Normal [facility] ED Note-Nursing Patient sitting up i n bed, needs denied currently. [facility] ED Note-Nursing Spoke with MHP, pt i s denying suicidal complaints at this time. Pts grandmother notified by MHP to come get her. Pt has a counseling session with current MHP on and Grandmother and careproviders are instructed they are all supposed to come to counseling session. Normal [facility] ED Note-Nursing MHP leaves room, upd ated [...] she understands and denies further needs currently. Normal [facility] ED Note-Nursing MHP in room with maria l vásquez at this time. Normal [facility] ED Note-Nursing Patient awake, eatin g at this time. Suicide precatuions remain in place. [facility] ED Note-Nursing Patient given a sand wich and chips at this time as well as a faustino mist upon request. Pt remains in view with suicide precautions in place. Normal [facility] ED Note-Nursing Patient resting in b ed at this time, within nursing view. [facility] ED Note-Nursing Pts clothing all rem miguelina and to the nurses desk. Pt assisted up to bathroom and back to bed, Urine sample obtained and sent to lab. Patient within this RN's view and monitored. [facility] ED Note-Nursing During patient's ass essment pt [...] So, can I just go home now. [facility] ED Patient Education Noteon 07-24-2017 ED Patient Education Note Patient Education Materials Follows:to-ReadDepressionDe pression is feeling sad, low, down in the [...] 02/01/2015 Document Reviewed: 01/16/2013ExitCare? Patient Information ?2015 [employer]. This information is not intended to replace advice given to you by your health care provider. Make sure you discuss any questions you have with your health care provider. Normal [facility] ED Patient Summaryon 017 ED Patient Summary (Inserted Image. Silvia ble to display) [place] [address] Patient Discharge Instructions Person Information Name: CRIS MAGANA Age: 17 Years Date: 07/24/2017 2:23 PMDischarge Diagnosis: Anxiety; Depression; Hx of schizophrenia Primary Care Physician: Barbara Mcknight MD Provider InformationPrimary Provider: Kaylie Fernandes DO Doctor Of Naprapathy:None The exam and treatment you received in the Emergency Department were for an urgent problem and are not intended as complete care. It is important that you follow up with a doctor, nurse practitioner, or physician?s assistant mechanic for ongoing care. If your symptoms become worse or you do not improve as expected and you are unable to reach your usual health care provider, you should return to the Emergency Department. We are available 24 hours a day. CRIS MAGANA has been given the following list of patient education materials, prescriptions and follow-up instructions: Follow-up Instructions:With: Address: When: Barbara Mcknight [address], [place] [address] Business (1) In 3 days 07/27/2017 Comments: [...] nearby participating provider. Patient Education Materials:Depression, Adult, Hoca-um-Tbun Medications Given:Medication Dose Route No medications found. Medication Information:Medications to Continue with No ChangesOther Medicationscitalopram (citalopram 20 mg Tab) 1 Tabs By Mouth every day.risperidone (risperidone 1 mg oral tablet) Comment: Pharmacy Information: [facility] Thank you for choosing [facility] Patient Education Materials: DepressionDepression is feeling [...] 02/01/2015 Document Reviewed: 01/16/2013ExitCare? Patient Information ?2015 [employer]. This information is not intended to replace advice given to you by your health care provider. Make sure you discuss any questions you have with your health care provider.MATT German ANGELINA M , have received the following patient education materials/instructions and have verbalized understanding: Patient Education Materials: Depression, Adult, Ebhs-xi-Crpn Follow-up Instructions: With: Address: When: Barbara Mcknight [address] [place] [address] [address] [id number] Business (1) In 3 days 07/27/2017 Comments: Follow-up as an outpatient with your psychiatrist as directed by mental services.The patient was advised to return to the ER immediately if symptoms worsen, problems arise, or any other issues develop. Ensure that you follow up as directed. Patient is released with her guardian/grandmother. Prescriptions: Patient Signature Date Clinician/Nurse Signature Date 07/24/17 17:10:44 [facility] Ethanolon 07-24-2017 Ethanol mg/dL Normal <=7 [facility] Comment on above: Performed By: #### 2 360981, 2774390, 0662990, 78901031, 2672562, 2353012 ####[facility] [address] [place] [address] Pre-Arrival Noteon 7 Pre-Arrival Note Pre-Arrival SummaryN valeria: , Current Date: 07/24/2017 14:24:04 EDTGender: FemaleDate of : Age: 17Pre-Arrival Type: EMSETA: 07/24/2017 14:45:00 EDTPrimary Care Physician: Presenting Problem: psych evalPre-Arrival User: Iliana Chavis RN Source: Location: [facility] Date/Time: 07/24/17 14:16:00[facility] Emergency Department Pre-Hospital Report Form Vital Signs: call was for a fall with a broken leg, on squads arrival up walking and squad states psych evaluation wants to kill herself and her grandmother, vss,Pre-Hospital Report: Treatment in Route: Response to Treatment: Misc. Issues: Normal [facility] Salicylateon 07-24-2017 Salicylates mg/dL Low 6-29 [facility] Comment on above: Performed By: #### 2 817796, 1335800, 7541096, 14133639, 8922030, 5671081 ####[facility] [address] [place] [address] U BetaHcg Qualon 07-24-2017 CHORIOGONADOTROPIN.BE TA SUBUNIT:SCNC:PT:URINE :QN: Negative Normal [facility] Comment on above: Performed By: #### 2 094325, 7943505, 0145357, 16865059, 0306590, 9124595 ####[facility] [address] [place] [address] U Drug Screenon 07-24-2017 AMPHETAMINES:PRTHR:PT :URINE:ORD:SCREEN>100 0 NG/ML Negative Normal Negative [facility] Comment on above: Result Comment: Nega tive Cutoff: <1000 ng/mL Performed By: #### 2 918243, 4859080, 8812204, 32123755, 7571005, 9213056 ####[facility] [address] [place] [id number] OPIATES:PRTHR:PT:URIN E:ORD:SCREEN Negative Normal Negative [facility] Comment on above: Result Comment: Nega tive Cutoff: <300 ng/mL Performed By: #### 2 139580, 7615890, 8600851, 48116435, 0250322, 7625884 ####[facility] [address] [place], [place] [address] PHENCYCLIDINE:PRTHR:P T:URINE:ORD:SCREEN>25 NG/ML Negative Normal Negative [facility] Comment on above: Result Comment: Nega tive Cutoff: <25 ng/mLThese drug screen results are to be used for medical (i.e., treatment) purposes only. Unconfirmed drug screening results must not be used for non-medical purposes (e.g., employment testing, legal testing). Performed By: #### 2 795936, 2443556, 4449492, 96021725, 7513080, 6964161 ####[facility] [address] [place] [address] TETRAHYDROCANNABINOL: PRTHR:PT:URINE:ORD:SC REEN>50 NG/ML Negative Normal Negative [facility] Comment on above: Result Comment: Nega tive Cutoff: <50 ng/mL Performed By: #### 2 148514, 4446946, 9938441, 82268134, 3630458, 8393566 ####[facility] [address] [place] [address] Urine, barbiturates presence Negative Normal Negative [facility] Comment on above: Result Comment: Nega tive Cutoff: <200 ng/mL Performed By: #### 2 862035, 8722425, 8799745, 03076125, 6497427, 4269326 ####[facility] [address] [place] [address] Urine, benzodiazepines presence Negative Normal Negative [facility] Comment on above: Result Comment: Nega tive Cutoff: <200 ng/mL Performed By: #### 2 618781, 3444395, 9947502, 94798270, 1470568, 4059203 ####[facility] [address] [place] [address] Urine, cocaine presence Negative Normal Negative [facility] Comment on above: Result Comment: Nega tive Cutoff: <300 ng/mL Performed By: #### 2 035451, 6645696, 8277546, 66203906, 1949719, 8719603 ####[facility] [address] [place] [address] eGFRon 07-24-2017 eGFR (black) mL/min/{1.73_m2} Normal >=59 [facility] Comment on above: Order Comment: Order added by Discern Expert. Result Comment: eGFR is race adjusted. AA=. Performed By: #### 2 327212, 8920096, 3748278, 11413223, 9200843, 3443093 ####[facility] [address] [place] [address] eGFR (non-black) mL/min/{1.73_m2} Normal >=59 [facility] Comment on above: Order Comment: Order added by Discern Expert. Result Comment: [employer] Lead jorge kidney disease could be indicated at eGFR's of less than 60 mL/min/1.73m2. Kidney failure is indicated at less than 15 mL/min/1.73m2. Performed By: #### 2 837199, 8714932, 2290707, 26385400, 4894605, 1983727 ####[facility] [address] [place] [address] C Urineon 07-17-2017 Urine culture, bacteria MicrobiologyPROCEDURE: Urine Culture [R1] U CleanCatch BODY SITE:COLLECTED DATE/TIME: 07/14/2017 20:45 EDT RECEIVED DATE/TIME: 07/15/2017 03:41 EDTSTART DATE/TIME: 07/15/2017 03:41 EDT FREE TEXT SOURCE:Herberth MEDINA, Ryan Kevin MD, RyanFINAL REPORTSFinal Report [] Verified Date/Time: 07/17/2017 11:36 EDT<10,000 cfu/ml Mixed skin contaminantsPerforming LocationsR1: This test was performed at: [facility], [address] [place] [address], [address] , [facility] Comment on above: Performed By: #### 2 269685, 5200636, 1911797, 89524452, 6131314, 3682186 ####[facility] [address] [place] [address] Coding Summary.on 07-16-2017 Coding Summary. CODING DATE: 017 FINAL [facility] DSC STATUS: [facility] PAYOR: Medicaid EA DESCRIPTION 0401 LEVEL II CHEMISTRY TESTS 0457 [...] Resendez Revised Date Saved: 07/16/2017 01:00 pm [facility] ED Clinical Summaryon 2016 ED Clinical Summary (Inserted Image. Silvia ble to display) [address] [address] ED Clinical SummaryPerson Information Name: CRIS MAGANA/Eitan Age: 17 Years : 2000 12:00 AM Sex: Female Language:Malawian PCP: Barbara Mcknight MD Marital Status:Single Visit [...] AM 07/15/2017 3:02 AM 07/15/2017 3:02 AM ADDRESS:[address] [place] [id number] [facility] DOC NOTES: Patient: CRIS MAGANA Age: 17 [...] fed in days brought to ED per [place] [employer] officer Blake . History of Present Illness 17-year-old white female presents back to the emergency room with thoughts of wanting to harm herself she lives in a assisted living type snf and was found with a knife in [...] Not DocumentedBee Stings- Sob.. Medications: (Selected) Documented MedicationsDocumentedcitalo pram 20 mg Tab: 20 mg = 1 tab(s), Oral, Daily, Refills(s) 0risperidone 1 mg oral tablet: Refills(s) 0. Past Medical/ Family/ Social History Medical history: ResolvedDiabetes ([id number]): Resolved.Suicidal plans ([id number]): Resolved.. Surgical history: None ([id number]).. Family history: No family history items have [...] waiting for lab results and evaluation by P. Documents reviewed: Emergency department nurses' notes. Orders Launch Order Profile (Selected) Inpatient OrdersOrderedCipro 250 mg Tab: 250 mg = 1 tab(s), Tab, Oral, Once, Stop date 07/15/17 0:49:00 EDT, STAT, Start date 07/15/17 0:49:00 EDTPrescriptionsPrescribedC ipro 250 mg Tab: 250 mg = 1 tab(s), Oral, q12hr, # 14 tab(s), Refills(s) 0. Impression and Plan Diagnosis Suicide ideation ([id number] R45.851, Discharge, Medical) Complaint of Suicidal thoughts (PNED [id number], Reason For Visit, Emergency medicine, Medical) Calls-Consults - MHP, consult, recommends The mental health professional is familiar with the patient. She interviewed the patient and the patient's ground support equipment mechanic. Everybody is in agreement that the patient will benefit from inpatient evaluation and treatment.. Plan Condition: Guarded. Disposition: Transfer to other location: Facility name: [facility], Patient care transitioned to: Time: 07/14/17 21:59:00, Herberth MEDINA, Ryan, Patient has been accepted by Dr. Jean Paul Gardner. Notes: Dr Kevin has been informed about evaluation and treatment of patient during this visit.This report was transcribed using voice recognition software. Every effort was made to ensure accuracy, however, inadvertently computerized jacquard card cutter mistakes may be present.Patient was treated and evaluated by the physician assistant mechanic. The attending physician was in the emergency [...] up:DIAGNOSIS:Acute urinary tract infection; Suicide ideation Normal [facility] ED Note-Physicianon 07-15-20 ED Note-Physician Patient: PEPE [...] fed in days brought to ED per [place] [employer] officer Blake . History of Present Illness 17-year-old white female presents back to the emergency room with thoughts of wanting to harm herself she lives in a assisted living type snf and was found with a knife in [...] Not DocumentedBee Stings- Sob.. Medications: (Selected) Documented MedicationsDocumentedcitalo pram 20 mg Tab: 20 mg = 1 tab(s), Oral, Daily, Refills(s) 0risperidone 1 mg oral tablet: Refills(s) 0. Past Medical/ Family/ Social History Medical history: ResolvedDiabetes ([id number]): Resolved.Suicidal plans ([id number]): Resolved.. Surgical history: None ([id number]).. Family history: No family history items have [...] waiting for lab results and evaluation by P. Documents reviewed: Emergency department nurses' notes. Orders Launch Order Profile (Selected) Inpatient OrdersOrderedCipro 250 mg Tab: 250 mg = 1 tab(s), Tab, Oral, Once, Stop date 07/15/17 0:49:00 EDT, STAT, Start date 07/15/17 0:49:00 EDTPrescriptionsPrescribedC ipro 250 mg Tab: 250 mg = 1 tab(s), Oral, q12hr, # 14 tab(s), Refills(s) 0. Impression and Plan Diagnosis Suicide ideation ([id number] R45.851, Discharge, Medical) Complaint of Suicidal thoughts (PNED [id number], Reason For Visit, Emergency medicine, Medical) Calls-Consults - MHP, consult, recommends The mental health professional is familiar with the patient. She interviewed the patient and the patient's ground support equipment mechanic. Everybody is in agreement that the patient [...] made to ensure accuracy, however, inadvertently computerized jacquard card cutter mistakes may be present.Patient was treated and evaluated by the physician assistant mechanic. The attending physician was in the emergency department at all times and supervised care. The case was discussed with the attending physician and diagnostics were reviewed as needed. Normal [facility] Comment on above: Result Comment: Elec tronically Signed By: Ryan Kevin MD\.br\Date and Time Signed: 07/15/17 01:21 EDT ED Patient Education Noteon 07-15-2017 ED Patient Education Note Patient Education Materials Follows: Normal [facility] ED Patient Summaryon 017 ED Patient Summary (Inserted Image. Silvia ble to display) [place] [address] Patient Discharge Instructions Person Information Name: CRIS MAGANA Age: 17 Years Date: 07/14/2017 8:04 PMDischarge Diagnosis: Acute urinary tract infection; Suicide ideation Primary Care Physician: Barbara Mcknight MD Provider InformationPrimary Provider: [facility] Doctor Of Naprapathy:None The exam and treatment you received in the Emergency Department were for an urgent problem and are not intended as complete care. It is important that you follow up with a doctor, nurse practitioner, or physician?s assistant mechanic for ongoing care. If your symptoms become [...] 1 mg oral tablet) Comment: Pharmacy Information: [facility] Thank you for choosing [facility] Patient Education Materials: MATT German ANGELINA M , have received the following patient education materials/instructions and have verbalized understanding: Patient Education Materials: Follow-up Instructions: Prescriptions: [ciprofloxacin (Cipro 250 mg Tab)] Patient Signature Date Clinician/Nurse Signature Date 07/15/17 03:03:00 Normal [facility] UA With Cult Reflexon 2016 Bilirubin Ql (U) Negative Normal Negative [facility] Comment on above: Performed By: #### 2 615336, 6114198, 3494966, 32718715, 2795919, 6239483 ####[facility] [address] [place] [address] COLOR:TYPE:PT:URINE:N OM:AUTO ORANGE Abnormal Yellow [facility] Comment on above: Performed By: #### 2 007351, 0724384, 8377795, 40041606, 7302694, 6208708 ####[facility] [address] [place] [address] CRYSTALS:PRTHR:PT:URI NE SED:ORD:MICROSCOPY.LI GHT Present Normal [facility] Comment on above: Performed By: #### 2 140842, 9583742, 2662545, 48187061, 4181934, 2039097 ####[facility] [address] [place] [address] Erythrocytes (RBC) 0-3 Normal 0-3 [facility] Comment on above: Performed By: #### 2 057166, 1725368, 4557933, 27855010, 7038620, 3872640 ####[facility] [address] [place], [place] [address] GLUCOSE:MCNC:PT:URINE :QN:TEST STRIP TRACE Abnormal Negative [facility] Comment on above: Performed By: #### 2 323746, 7397091, 3628001, 37749614, 3826014, 6271784 ####[facility] [address] [place], [place] [address] KETONES:MCNC:PT:URINE :QN:TEST STRIP TRACE Abnormal Negative [facility] Comment on above: Performed By: #### 2 441604, 4802128, 7792573, 85211281, 0237647, 3483027 ####[facility] [address] [place] [address] LEUKOCYTES:PRTHR:PT:U RINE:ORD:AUTOMATED Negative Normal Negative [facility] Comment on above: Performed By: #### 2 312049, 0401752, 1804627, 03068879, 3305419, 6173854 ####[facility] [address] [place] [address] UA Spec Desc Clean Catch Normal [facility] Comment on above: Performed By: #### 2 496339, 5498439, 4819598, 20112479, 4061428, 4144333 ####[facility] [address] [place] [address] Urine, clarity CLOUDY Abnormal Clear [facility] Comment on above: Performed By: #### 2 462861, 5261963, 3256765, 78195803, 2497555, 9246601 ####[facility] [address] [place] [address] Urine, hemoglobin presence TRACE Abnormal Negative [facility] Comment on above: Performed By: #### 2 910930, 0038882, 0027526, 68327102, 9600574, 5280075 ####[facility] [address] [place] [address] Urine, leukocytes in sedmiment 6-15 Abnormal 0-5 [facility] Comment on above: Performed By: #### 2 221142, 1031830, 5499250, 05718197, 1463171, 2706499 ####[facility] [address] [place] [address] Urine, mucus presence in sediment 1+ Normal [facility] Comment on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 0.4 E9/L [...] Apparently the patient has been in the snf for one week. Patient really just moved [...] evaluation.. Impression and Plan Diagnosis Suicide ideation ([id number] R45.851, Discharge, Medical) Hallucination (WRI95-IM R44.3, Discharge, Medical) Plan Condition: Stable. Disposition: Patient care transitioned to: Time: 06/10/17 21:39:00, Adama MEDINA, Matthew, Case discussed in detail with Dr. Galan. Patient be transitioned to his care. Awaiting mental health evaluation. Normal [facility] Comment on above: Result Comment: Elec tronically Signed By: Adama MEDINA, Matthew\.br\Date and Time Signed: 07/12/17 21:01 EDT ED Patient Education Noteon 07-12-2017 ED Patient Education Note Patient Education Materials Follows:MedicineDepressionD epression is feeling sad, low, down in the [...] 02/01/2015 Document Reviewed: 01/16/2013ExitCare? Patient Information ?2015 [employer]. This information is not intended to replace advice given to you by your health care provider. Make sure you discuss any questions you have with your health care provider. Normal [facility] ED Patient Education Note Patient Education Materials Follows:MedicineDepressionD epression is feeling sad, low, down in the [...] 02/01/2015 Document Reviewed: 01/16/2013ExitCare? Patient Information ?2014 [employer]. This information is not intended to replace advice given to you by your health care provider. Make sure you discuss any questions you have with your health care provider. Normal [facility] ED Patient Summaryon 017 ED Patient Summary (Inserted Image. Silvia ble to display) [place] [id number] Patient Discharge Instructions Person Information Name: CRIS MAGANA Age: 17 Years Date: 07/12/2017 3:15 PMDischarge Diagnosis: Depression; Manipulative behavior Primary Care Physician: Barbara Mcknight MD Provider InformationPrimary Provider: Berta Aguilar DO Doctor Of Naprapathy:None The exam and treatment you received in the Emergency Department were for an urgent problem and are not intended as complete care. It is important that you follow up with a doctor, nurse practitioner, or physician?s assistant mechanic for ongoing care. If your symptoms become worse or you do not improve as expected and you are unable to reach your usual health care provider, you should return to the Emergency Department. We are available 24 hours a day. CRIS MAGANA has been given the following list of patient education materials, prescriptions and follow-up instructions: Follow-up Instructions:With: Address: When: Barbara HERNANDEZ [facility] [address], [place] [address] Business (1) In 1 day 07/13/2017 With: Address: When: Barbara HERNANDEZ [facility] [address], [place] [address] Business (1) In 3 days In the event that this physician does not participate in your insurance network, please consult with your insurance company to find a nearby participating provider. Patient Education Materials:Depression, Adult, Ztgx-yh-Btty Medications Given:Medication Dose Route haloperidol 5.00 mg IntraMuscular Left Deltoid Medication Information:Medications to Continue with No ChangesOther Medicationsrisperidone (risperidone 1 mg oral tablet) Comment: Pharmacy Information: [facility] [place] Thank you for choosing [facility] Patient Education Materials: DepressionDepression is feeling [...] 02/01/2015 Document Reviewed: 01/16/2013ExitCare? Patient Information ?2014 [employer]. This information is not intended to replace advice given to you by your health care provider. Make sure you discuss any questions you have with your health care provider.IMATT ANGELINA M , have received the following patient education materials/instructions and have verbalized understanding: Patient Education Materials: Depression, Adult, Zkzy-bw-Nyyp Follow-up Instructions: With: Address: When: [place] [id number] [facility] (1) In 1 day 07/13/2017 With: Address: When: [place] [address] [facility] (1) In 3 days Prescriptions: Patient Signature Date Clinician/Nurse Signature Date 07/12/17 17:09:20 Normal [facility] ED Patient Summary (Inserted Image. Silvia ble to display) [address] [address] Patient Discharge Instructions Person Information Name: ELIE MAGANACLARISSA Ellsworth Age: 17 Years Date: 07/11/2017 6:42 PMDischarge Diagnosis: Homicidal ideation; Suicidal ideation Primary Care Physician: Juan Luis MEDINA, Barbara Jean Provider InformationPrimary Provider: Adama MEDINA, Valerysiciysabel Doctor Of Naprapathy:None The exam and treatment you received in the Emergency Department were for an urgent problem and are not intended as complete care. It is important that you follow up with a doctor, nurse practitioner, or physician?s assistant mechanic for ongoing care. If your symptoms become worse or you do not improve as expected and you are unable to reach your usual health care provider, you should return to the Emergency Department. We are available 24 hours a day. CRIS MAGANA has been given the following list of patient education materials, prescriptions and follow-up instructions: Follow-up Instructions:With: Address: When: Barbara Mcknight [address] [place] [address] [address] [id number] [facility] (1) In 2 days 07/13/2017 With: Address: When: Barbara Mcknight [address] [place] [address] [address] [id number] [facility] (1) In 3 days In the event that this physician does not participate in your insurance network, please consult with your insurance company to find a nearby participating provider. Patient Education Materials:Depression, Adult, Xoic-zk-Dvzy Medications Given:Medication Dose Route No medications found. Medication Information:Medications to Continue with No ChangesOther Medicationsrisperidone (risperidone 1 mg oral tablet) trazodone (traZODONE 50 mg Tab) 1 Tabs By Mouth once a day (at bedtime).No Longer Take the Following Medicationscitalopram (citalopram 20 mg oral tablet) Comment: Pharmacy Information: [facility] Thank you for choosing [facility] Patient Education Materials: DepressionDepression is feeling [...] 02/01/2015 Document Reviewed: 01/16/2013ExitCare? Patient Information ?2015 [employer] [facility]. This information is not intended to replace advice given to you by your health care provider. Make sure you discuss any questions you have with your health care provider.MATT German ANGELINA M , have received the following patient education materials/instructions and have verbalized understanding: Patient Education Materials: Depression, Adult, Yhqd-tl-Ybfg Follow-up Instructions: With: Address: When: Barbaraclarissa Mcknight [address] [place] [address] [address] [phone] [facility] (1) In 2 days 07/13/2017 With: Address: When: Barbara Bainsfield [address] [place] [address] [address], [place] [address] [facility] (1) In 3 days Prescriptions: Patient Signature Date Clinician/Nurse Signature Date 07/11/17 22:18:03 [facility] Pre-Arrival Noteon 7 Pre-Arrival Note Pre-Arrival SummaryN valeria: , Current Date: 07/12/2017 15:16:02 EDTGender: FemaleDate of : Age: 17Pre-Arrival Type: EMSETA: 07/12/2017 15:35:00 EDTPrimar Care Physician: Presenting Problem: Pre-Arrival User: Britni Yadav RN Source: Location: [facility] Date/Time: 07/12/17 15:06:00[facility] Emergency Department Pre-Hospital Report Form Vital Signs: Pre-Hospital Report: 17 year old female, mentally challenged. Wants to cut herself. Treatment in Route: Response to Treatment: Misc. Issues: [facility] Progress Note-Nurseon 2016 Progress Note-Nurse Patient sitting on c art. This nurse spoke with Tyson Fisher NP and patients mal who is legal guardian. Awaiting arrival of patients 24 hour log driver to discuss care. Patient states she is [...] in room at this time speaking with log driver. Patient using phone to call boyfriend.This nurse in to discharge patient with log driver. Patient states, I dont want to go anywhere with her, shes an asshole. I dont care what she thinks, I'll beat her fuckin ass. I dont want her to be my provider anymore. Ill kill her. Patient informed her language wont be tolerated. Tyson in to see patient. Intellectual Property Legal Assistant calling grandjorden. Grandma states unable to come back to hospital at this time. Patient remains in view of nurses station.Patient sitting on cart talking on phone with boyfriend. Intellectual Property Legal Assistant at bedside. Patient remains in view of nurses station.Patient sitting on cart talking with log driver pleasantly. Remains in view of nurses station.Patient discharged at this time with log driver. Intellectual Property Legal Assistant verbalized that she felt safe taking patient home. Tyson aware of this. Normal [facility] Acetamnphn Lvlon 07-11-2017 Acetaminophen mass conc <10 Low 15-30 [facility] Comment on above: Performed By: #### 2 491119, 4562074, 5907974, 3004843, 9438696, 76297528 ####[facility] [address] [place] [address] Auto Diffon 07-11-2017 Basophils Auto #/vol (Bld) 0.2 % Normal 0.0-2.0 [facility] Comment on above: Order Comment: Order Added by Discern Expert. Performed By: #### 2 862609, 1405979, 9822540, 8277034, 6687143, 67468468 ####[facility] [address] [place] [address] Basophils Auto #/vol (Bld) 0.0 E9/L Normal 0.0-0.2 [facility] Comment on above: Order Comment: Order Added by Discern Expert. Performed By: #### 2 501737, 1348545, 6081840, 5753461, 5787482, 83728326 ####[facility] [address] [place] [address] Eosinophils 0.1 E9/L Normal 0.0-0.5 [facility] Comment on above: Order Comment: Order Added by Discern Expert. Performed By: #### 2 108435, 4531880, 9691891, 8305694, 4151382, 11130629 ####[facility] [address] [place] [address] Eosinophils/100 leukocytes 0.6 % Normal 0.0-8.0 [facility] Comment on above: Order Comment: Order Added by Nita Expert. Performed By: #### 2 022915, 2727758, 1283556, 5634341, 4553203, 76300218 ####[place] [address] [place] [address] Lymphocytes 2.7 E9/L Normal 1.0-4.0 [facility] Comment on above: Order Comment: Order Added by Nita Expert. Performed By: #### 2 808566, 7741715, 2394260, 6990001, 5037378, 43643057 ####[facility] [address] [place] [address] Lymphocytes/100 leukocytes 25.8 % Normal 14.0-50.0 [facility] Comment on above: Order Comment: Order Added by Nita Expert. Performed By: #### 2 736590, 6794441, 3923823, 6002734, 6854972, 31736872 ####[facility] [address] [place] [address] Monocytes 0.6 E9/L Normal 0.2-1.0 [facility] Comment on above: Order Comment: Order Added by Nita Expert. Performed By: #### 2 742620, 3764953, 6358835, 7703935, 0554724, 90609691 ####[facility] [address] [place] [address] Monocytes/100 leukocytes 5.4 % Normal 4.0-14.0 [facility] Comment on above: Order Comment: Order Added by Nita Expert. Performed By: #### 2 217679, 1406776, 0489199, 0805096, 8847596, 45908442 ####[place] [address] [place] [address] Neutrophils 7.2 E9/L Normal 2.0-7.5 [facility] Comment on above: Order Comment: Order Added by Discern Expert. Performed By: #### 2 310033, 3248303, 6917301, 1658773, 3754647, 57251232 ####[place] [address] [place] [address] Neutrophils/100 leukocytes 68.0 % Normal 36.0-75.0 [facility] Comment on above: Order Comment: Order Added by Discern Expert. Performed By: #### 2 738046, 4385971, 7678972, 3383421, 6484752, 80670735 ####[place] [address] [place] [address] CBC w/ Auto Diffon Erythrocyte distribution width Auto Ratio (RBC) 12.9 % Normal 10.9-14.2 [facility] Comment on above: Performed By: #### 2 552903, 0976657, 6570041, 0456014, 1798727, 03901334 ####[place] [address] [place] [address] Erythrocytes (RBC) 4.8 E12/L Normal 4.3-5.9 [facility] Comment on above: Performed By: #### 2 461305, 5035354, 1225416, 7347282, 9995792, 47740530 ####[place] [address] [place] [address] Hematocrit (HCT) 40.4 % Normal 34.0-46.0 [facility] Comment on above: Performed By: #### 2 480939, 7822733, 4996660, 6972396, 5281195, 83472775 ####[place] [address] [place] [address] Hemoglobin mass conc (Bld) 13.8 g/dL Normal 12.0-16.0 [facility] Comment on above: Performed By: #### 2 260196, 8078650, 8825829, 6556075, 1242839, 28540752 ####[facility] [address] [place] [address] MCH 29.1 pg Normal 27.0-34.0 [facility] Comment on above: Performed By: #### 2 602601, 2856083, 9054823, 3903219, 2423070, 03830561 ####[facility] [address] [place] [address] MCHC mass conc (RBC) 34.3 g/dL Normal 31.4-39.3 [facility] Comment on above: Performed By: #### 2 641179, 4271372, 6831044, 7453146, 6409210, 89689531 ####[place] [address]857 MCV 84.8 fL Normal 80.0-100.0 [facility] Comment on above: Performed By: #### 2 075944, 4427833, 9023870, 9940226, 0088998, 79768133 ####[address] [address] Platelet mean volume (PMV) 7.5 fL Normal 6.4-10.8 [facility] Comment on above: Performed By: #### 2 926633, 9798856, 7891529, 2054843, 0686631, 72383545 ####[facility] [address] [place] [address] Platelets 242.0 E9/L Normal 150.0-500. 0 [facility] Comment on above: Performed By: #### 2 852865, 5034791, 7047599, 9559872, 0184869, 68706087 ####[place] [address] [place] [address] WBC (Leukocytes) 10.7 E9/L Normal 4.0-11.0 [facility] Comment on above: Performed By: #### 2 748400, 7471380, 9897443, 1847252, 4373269, 31151599 ####[facility] [address] [place] [address] CMPon 07-11-2017 Alanine aminotransferase (ALT) 27 Int._Unit/L Normal 6-46 [facility] Comment on above: Performed By: #### 2 867866, 4704627, 9001822, 09555581, 7262588, 2893060 ####[facility] [address] [place] [address] Albumin 3.6 g/dL Normal 3.3-5.0 [facility] Comment on above: Performed By: #### 2 645164, 8458808, 9359717, 63191707, 0851339, 3261416 ####[place] [address] [place] [address] Albumin 1.1 g/dL Normal 1.1-2.2 [facility] Comment on above: Performed By: #### 2 209995, 0125762, 7344523, 59547783, 1776812, 7180786 ####[facility] [address] [place] [address] Alkaline phosphatase (ALP) 72 Int._Unit/L Normal 21-98 [facility] Comment on above: Performed By: #### 2 318782, 7616670, 5527344, 08535861, 7647311, 3802600 ####[facility] [address] [place] [address] Aspartate aminotransferase (AST) 23 Int._Unit/L Normal 5-43 [facility] Comment on above: Performed By: #### 2 027122, 0081517, 5281462, 65970831, 6267741, 4200233 ####[facility] [address] [place] [address] Bilirubin (total) 0.4 mg/dL Normal 0.0-1.1 [facility] Comment on above: Performed By: #### 2 577761, 2404544, 0221283, 80135079, 0267125, 2420819 ####[facility] [address] [place] [address] BUN/Creatinine Ratio 12 No Units Normal 10-20 [facility] Comment on above: Performed By: #### 2 580288, 1935806, 7822702, 87383436, 4576014, 3274334 ####[facility] [address] [place] [address] Creatinine 0.9 mg/dL Normal 0.5-1.3 [facility] Comment on above: Performed By: #### 2 529914, 7038248, 7890430, 20850106, 5084438, 6261707 ####[facility] [address] [place] [address] Globulin 3.3 g/dL Normal 1.4-4.0 [facility] Comment on above: Performed By: #### 2 664165, 4579322, 6551867, 90442822, 4803133, 4404760 ####[facility] [address] [place] [address] Protein 6.9 g/dL Normal 6.0-7.8 [facility] Comment on above: Performed By: #### 2 882574, 3588622, 1171422, 12942328, 7070558, 3206041 ####[facility] [address] [place] [address] Urea nitrogen 11 mg/dL Normal 5-21 [facility] Comment on above: Performed By: #### 2 403775, 2137165, 2204634, 01144000, 0611985, 8756920 ####[facility] [address] [place] [address] Anion gap 13 mmol/L Normal 6-16 [facility] Comment on above: Performed By: #### 2 417214, 3114378, 3385635, 24480204, 9841874, 4786825 ####[facility] [address] [place] [address] Calcium 8.7 mg/dL Low 8.9-11.1 [facility] Comment on above: Performed By: #### 2 429468, 1744649, 5153889, 57543809, 5355591, 0204307 ####[facility] [address] [place] [address] Chloride 102 mmol/L Normal 101-111 [facility] Comment on above: Performed By: #### 2 772837, 8569591, 1832063, 53075495, 9834690, 3660207 ####[facility] [address] [place] [address] CO2 24 mmol/L Normal 21-31 [facility] Comment on above: Performed By: #### 2 150810, 3386801, 7129538, 80992232, 2549726, 3751521 ####[facility] [address] [place] [address] Glucose mass conc 174 mg/dL Normal 55-199 [facility] Comment on above: Result Comment: If t his glucose result represents a fasting glucose, interpretation should refer to the following reference range: 55-99 mg/dL Performed By: #### 2 501540, 2066156, 5975012, 54066989, 8177052, 5923856 ####[facility] [address] [place] [address] Potassium molar conc 3.1 mmol/L Low 3.5-5.3 [facility] Comment on above: Performed By: #### 2 698331, 2664112, 4717368, 14714047, 8432539, 9552608 ####[facility] [address] [place] [address] Sodium 136 mmol/L Normal 135-145 [facility] Comment on above: Performed By: #### 2 286579, 1658104, 8903170, 06671478, 8776439, 9997540 ####[facility] [address] [place] [address] ED Note-Nursingon 07-11-2017 ED Note-Nursing Suicidal precaution in place. Denies needs. Normal [facility] ED Note-Nursing Patient into room 8, assessed. Pt explains of suicidal thoughts to stab myself , patient also stating I want to kill my grandma . Pt states cutting her wrists in the past. Recentlt discharged from [facility] for the same problem. Pt put into gown. Understand lab work and urine specimen collection. Collected and tolerated. Clothes put at nursing station. Suicidal precaution in place.194 Patient given sandwich/chips and pop. Suicidal precuations in place. Normal [facility] Ethanolon 07-11-2017 Ethanol mg/dL Normal <=7 [facility] Comment on above: Performed By: #### 2 320597, 9860259, 5943665, 00052256, 6411184, 5121097 ####[facility] [address] [place] [address] Progress Note-Nurseon 2016 Progress Note-Nurse Patient: PEPE MAGANA Age: 17 years Sex: Female : 2000 Associated Diagnoses: None Author: Sarah Lynn RN Progress Note Patient still speaking with SUE Chavez. Pt being calm and cooperative. Normal [facility] Progress Note-Nurse Patient: PEPE MAGANA Age: 17 years Sex: Female : 2000 Associated Diagnoses: None Author: Sarah Lynn RN Progress Note Patient still speaking with Kathy from [facility], cooperative. Suicidal precautions in place. Normal [facility] Progress Note-Nurse Patient: PEPE MAGANA Age: 17 years Sex: Female : 2000 Associated Diagnoses: None Author: Sarah Lynn RN Progress Note Patient speaking with Kathy Andrei counselor, at this time. Normal [facility] Salicylateon 07-11-2017 Salicylates mg/dL Low 6-29 [facility] Comment on above: Performed By: #### 2 892377, 8557224, 6228284, 56462606, 3164766, 7478504 ####[facility] [address] [place] [address] U BetaHcg Qualon 07-11-2017 CHORIOGONADOTROPIN.BE TA SUBUNIT:SCNC:PT:URINE :QN: Negative Normal [facility] Comment on above: Performed By: #### 2 212685, 9213250, 0772703, 64302567, 8855764, 5251128 ####[facility] [address] [place], [place] [address] U Drug Screenon 07-11-2017 AMPHETAMINES:PRTHR:PT :URINE:ORD:SCREEN>100 0 NG/ML Negative Normal Negative [facility] Comment on above: Result Comment: Nega tive Cutoff: <1000 ng/mL Performed By: #### 2 270860, 3467584, 9352950, 87300310, 7935861, 9631439 ####[place] [address] OPIATES:PRTHR:PT:URIN E:ORD:SCREEN Negative Normal Negative [facility] Comment on above: Result Comment: Nega tive Cutoff: <300 ng/mL Performed By: #### 2 137861, 5243632, 1385944, 61412882, 1860514, 1765526 ####[facility] [address] [place] [address] PHENCYCLIDINE:PRTHR:P T:URINE:ORD:SCREEN>25 NG/ML Negative Normal Negative [facility] Comment on above: Result Comment: Nega tive Cutoff: <25 ng/mLThese drug screen results are to be used for medical (i.e., treatment) purposes only. Unconfirmed drug screening results must not be used for non-medical purposes (e.g., employment testing, legal testing). Performed By: #### 2 858483, 2983796, 3582423, 30742794, 4849920, 5377865 ####[address] [address] TETRAHYDROCANNABINOL: PRTHR:PT:URINE:ORD:SC REEN>50 NG/ML Negative Normal Negative [facility] Comment on above: Result Comment: Nega tive Cutoff: <50 ng/mL Performed By: #### 2 388092, 2714130, 1298526, 91739697, 5870805, 0314354 ####[facility] [address]Nthe [place] [address] Urine, barbiturates presence Negative Normal Negative [facility] Comment on above: Result Comment: Nega tive Cutoff: <200 ng/mL Performed By: #### 2 857518, 9988713, 5543491, 11985068, 6832298, 2699787 ####[facility] [address] [place] [address] Urine, benzodiazepines presence Negative Normal Negative [facility] Comment on above: Result Comment: Nega tive Cutoff: <200 ng/mL Performed By: #### 2 751590, 9470266, 6480324, 60596132, 0747171, 5301190 ####[facility] [address] [place] [address] Urine, cocaine presence Negative Normal Negative [facility] Comment on above: Result Comment: Nega tive Cutoff: <300 ng/mL Performed By: #### 2 776818, 8070013, 7170027, 56321304, 5663250, 1011796 ####[facility] [address] [place] [address] eGFRon 07-11-2017 eGFR (black) mL/min/{1.73_m2} Normal >=59 [facility] Comment on above: Order Comment: Order added by Discern Expert. Result Comment: eGFR is race adjusted. AA=. Performed By: #### 2 487998, 3105537, 8450926, 89386708, 6673718, 6250021 ####[facility] [address] [place] [address] eGFR (non-black) mL/min/{1.73_m2} Normal >=59 [facility] Comment on above: Order Comment: Order added by Discern Expert. Result Comment: Energy Projects Lead jorge kidney disease could be indicated at eGFR's of less than 60 mL/min/1.73m2. Kidney failure is indicated at less than 15 mL/min/1.73m2. Performed By: #### 2 991228, 2348920, 0002211, 66363016, 0397310, 7336426 ####[facility] [address] [place] [id number] Coding Summary.on 07-04-2017 Coding Summary. 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 However, the narrative phrase printed from the coding software may appear abbreviated, or result in slightly different terminology. Revised Coded By: Clarice Moeller Revised Date Saved: 07/04/2017 12:43 pm Normal [facility] ED Clinical Summaryon 2016 ED Clinical Summary (Inserted Image. Silvia ble to display) [place] [id number] ED Clinical SummaryPerson Information Name: CRIS MAGANA/HarlanDemetris Age: 17 Years : 2000 12:00 AM Sex: Female Language:Malawian PCP: Eddie Oro M.D. Marital Status:Single Visit [...] PM 07/02/2017 11:49 PM 07/02/2017 11:49 PM ADDRESS:[address] [place] [id number] [facility] DOC NOTES: MEDICAL INFORMATION: Prescriptions Given:Home Meds Display albuterol (Pro-Air HFA CFC free 90 mcg/inh MDI) Refill(s) 0 citalopram (citalopram 20 mg oral tablet) Refills(s) 0 risperidone (risperidone 1 mg oral tablet) Refills(s) 0 PATIENT EDUCATION INFORMATION: Instructions: Follow up:DIAGNOSIS:Homicidal ideation; Medical clearance for psychiatric admission; Suicidal ideation; Suspected UTI Normal [facility] ED Note-Nursingon 07-03-2017 ED Note-Nursing This nurse [...] clothing behind nurses station and pt in gown.1914 Pt continues to sit in room watching [...] a locked down dormatory healthcare facility in [place] for a year. Pt was recently moved to a snf in [place] in June and has stayed at [facility] for 2 weeks since then and just got discharged a week ago. Grandmother sts pt has been dx with autism and aspergers disease. Pt is still currently living in a snf with 24 hour care.1999 Pt sitting in bed on cot watching [...] on bed in view of nurses station 2144 Pt continues to cooperate and watch tv in room. Pt remains in view of nurses station. 2200 Pt watching tv in view of nurse station 2215 Pt watching tv at this time. P setting up transport to rescue, estimated ETA is [phone] Pt ambulated to bathroom with no problems. Pt back to bed, laying on bed in view of nurse station and denies any further needs.2245 Pt sleeping in room in view of nurses station.2300 PT continues to sleep in vith4440 PT sleeping in room in view of nurse station. Awaiting transportation.2335 [place] vehicle is here to transport patient. Jerman, was given report. PT continues to sleep in bed but is woken up at this time to place clothing back on for transport. Pt remains cooperative and places clothing. Pt walks to car with no problems. Normal [facility] ED Patient Education Noteon 07-03-2017 ED Patient Education Note Patient Education Materials Follows: Normal [facility] ED Patient Summaryon 017 ED Patient Summary (Inserted Image. Silvia ble to display) [place] [id number] Patient Discharge Instructions Person Information Name: CRIS MAGANA Age: 17 Years Date: 07/02/2017 6:50 PMDischarge Diagnosis: Homicidal ideation; Medical clearance for psychiatric admission; Suicidal ideation; Suspected UTI Primary Care Physician: Eddie Oro M.D. Provider InformationPrimary Provider: Herberth MEDINA, Whitneysiciysabel Doctor Of Naprapathy:None The exam and treatment you received in the Emergency Department were for an urgent problem and are not intended as complete care. It is important that you follow up with a doctor, nurse practitioner, or physician?s assistant mechanic for ongoing care. If your symptoms become worse or you do not improve as expected and you are unable to reach your usual health care provider, you should return to the Emergency Department. We are available 24 hours a day. MATT, CRIS Jodee has been given the following list [...] 1 mg oral tablet) Comment: Pharmacy Information: [facility] Thank you for choosing [facility] Patient Education Materials: MATT German ANGELINA M , have received the following patient education materials/instructions and have verbalized understanding: Patient Education Materials: Follow-up Instructions: Prescriptions: Patient Signature Date Clinician/Nurse Signature Date 07/02/17 23:49:02 Normal [facility] Acetamnphn Lvlon 07-02-2017 Acetaminophen mass conc <10 Low 15-30 [facility] Comment on above: Result Comment: LT\L T\UL Performed By: #### 2 783258, 0909024, 5835409, 48648086, 6142721, 4857952 ####[facility] [address] [place] [address] Auto Diffon 07-02-2017 Basophils Auto #/vol (Bld) 0.2 % Normal 0.0-2.0 [facility] Comment on above: Order Comment: Order Added by Discern Expert. Performed By: #### 2 416079, 7695192, 3669040, 66615621, 7976796, 9664399 ####[facility] [address] [place] [address] Basophils Auto #/vol (Bld) 0.0 E9/L Normal 0.0-0.2 [facility] Comment on above: Order Comment: Order Added by Discern Expert. Performed By: #### 2 322756, 8585203, 0511065, 34601466, 2904115, 7861226 ####[place] [address] [place] [address] Eosinophils 0.4 E9/L Normal 0.0-0.5 [facility] Comment on above: Order Comment: Order Added by Nita Expert. Performed By: #### 2 122245, 3362612, 4491006, 36507570, 2639445, 7831379 ####[address] [address] Eosinophils/100 leukocytes 3.9 % Normal 0.0-8.0 [facility] Comment on above: Order Comment: Order Added by Nita Expert. Performed By: #### 2 597232, 8538323, 6217217, 49554464, 2623173, 0249758 ####[place] [address] [place] [address] Lymphocytes 3.2 E9/L Normal 1.0-4.0 [facility] Comment on above: Order Comment: Order Added by Nita Expert. Performed By: #### 2 977384, 6464545, 2293988, 46658407, 9084742, 2404981 ####[place] [address] [place] [address] Lymphocytes/100 leukocytes 29.4 % Normal 14.0-50.0 [facility] Comment on above: Order Comment: Order Added by Nita Expert. Performed By: #### 2 191530, 3604655, 7807229, 92654261, 2316843, 8207045 ####[place] [address] [place] [address] Monocytes 0.7 E9/L Normal 0.2-1.0 [facility] Comment on above: Order Comment: Order Added by Discern Expert. Performed By: #### 2 294556, 4030236, 1400467, 59488495, 7560875, 4946024 ####[place] [address] [place] [address] Monocytes/100 leukocytes 6.2 % Normal 4.0-14.0 [facility] Comment on above: Order Comment: Order Added by Discern Expert. Performed By: #### 2 649319, 4656621, 0598361, 00214960, 7263588, 3308403 ####[address] [address] Neutrophils 6.6 E9/L Normal 2.0-7.5 [facility] Comment on above: Order Comment: Order Added by Discern Expert. Performed By: #### 2 261976, 7249324, 7528380, 55983311, 6396762, 2201039 ####[address] [address] Neutrophils/100 leukocytes 60.3 % Normal 36.0-75.0 [facility] Comment on above: Order Comment: Order Added by Discern Expert. Performed By: #### 2 585799, 1448000, 8341551, 66012076, 2625994, 4433957 ####[place] [address] [place] [address] CBC w/ Auto Diffon 7 Erythrocyte distribution width Auto Ratio (RBC) 12.9 % Normal 10.9-14.2 [facility] Comment on above: Performed By: #### 2 148825, 2977095, 2537052, 38486679, 2208885, 3765040 ####[address] [address] Erythrocytes (RBC) 4.9 E12/L Normal 4.3-5.9 [facility] Comment on above: Performed By: #### 2 878431, 8509275, 7872242, 38514787, 3842641, 1353675 ####[facility] [address] [place] [address] Hematocrit (HCT) 42.0 % Normal 34.0-46.0 [facility] Comment on above: Performed By: #### 2 526493, 4369769, 8720669, 05434686, 8086091, 0150409 ####[facility] [address] [place] [address]1257 Hemoglobin mass conc (Bld) 14.2 g/dL Normal 12.0-16.0 [facility] Comment on above: Performed By: #### 2 386435, 3611965, 3618777, 67064557, 6234339, 5237608 ####[place] [address] MCH 29.1 pg Normal 27.0-34.0 [facility] Comment on above: Performed By: #### 2 761306, 3082059, 3347840, 78363705, 2192388, 4791580 ####[place] [address] [place] [address] MCHC mass conc (RBC) 33.8 g/dL Normal 31.4-39.3 [facility] Comment on above: Performed By: #### 2 275076, 8682129, 7928815, 31860375, 4766961, 7094169 ####[facility] [address] [place] [address] MCV 86.2 fL Normal 80.0-100.0 [facility] Comment on above: Performed By: #### 2 205895, 0709267, 1699932, 44507687, 4569684, 8356084 ####[place] [address] [place] [address]1257 Platelet mean volume (PMV) 8.2 fL Normal 6.4-10.8 [facility] Comment on above: Performed By: #### 2 717682, 6261596, 9807041, 28527432, 6521726, 7006566 ####[facility] [address] [place] [address] Platelets 264.0 E9/L Normal 150.0-500. 0 [facility] Comment on above: Performed By: #### 2 847249, 7712349, 7940105, 95075226, 9837166, 9958191 ####[place] [address] [place] [address] WBC (Leukocytes) 10.9 E9/L Normal 4.0-11.0 [facility] Comment on above: Performed By: #### 2 762919, 9536284, 3015405, 05390347, 5188651, 3016864 ####[address] [address] CMPon 07-02-2017 Alanine aminotransferase (ALT) 27 Int._Unit/L Normal 6-46 [facility] Comment on above: Performed By: #### 2 358860, 9258408, 7251519, 17562158, 6188749, 8648810 ####[facility] [address] [place] [address] Albumin 3.9 g/dL Normal 3.3-5.0 [facility] Comment on above: Performed By: #### 2 556404, 9203798, 3869944, 97917860, 1573266, 9198549 ####[place] [address] [place] [address] Albumin 1.2 g/dL Normal 1.1-2.2 [facility] Comment on above: Performed By: #### 2 822881, 5444406, 1311258, 94377109, 6664586, 8758199 ####[place] [address] [place] [address] Alkaline phosphatase (ALP) 76 Int._Unit/L Normal 21-98 [facility] Comment on above: Performed By: #### 2 904884, 4973404, 3384633, 14094515, 9433606, 7725005 ####[facility] [address] [place] [address] Anion gap 12 mmol/L Normal 6-16 [facility] Comment on above: Performed By: #### 2 250184, 7440246, 8716575, 07877603, 7353071, 7692744 ####[facility] [address] [place] [address]12[address] Aspartate aminotransferase (AST) 21 Int._Unit/L Normal 5-43 [facility] Comment on above: Performed By: #### 2 262157, 5023376, 6402922, 58562782, 5568143, 7948200 ####[place] [address]39857 Bilirubin (total) 0.3 mg/dL Normal 0.0-1.1 [facility] Comment on above: Performed By: #### 2 164536, 8481556, 3192063, 35951467, 7749781, 7431606 ####[facility] [address] [place] [address]12[address] BUN/Creatinine Ratio 10 No Units Normal 10-20 [facility] Comment on above: Performed By: #### 2 989628, 9975424, 9620134, 03207193, 3675418, 0612764 ####[facility] [address] [place] [address]1257 Calcium 9.0 mg/dL Normal 8.9-11.1 [facility] Comment on above: Performed By: #### 2 856647, 7824325, 2614947, 80693150, 6847547, 3210200 ####[facility] [address] [place] [address] Chloride 107 mmol/L Normal 101-111 [facility] Comment on above: Performed By: #### 2 382544, 6154334, 5243917, 53514773, 7994780, 6758809 ####[facility] [place] [address] CO2 22 mmol/L Normal 21-31 [facility] Comment on above: Performed By: #### 2 244103, 8400080, 9150543, 96241300, 2673411, 9736888 ####[facility] [address] [place] [address] Creatinine 1.0 mg/dL Normal 0.5-1.3 [facility] Comment on above: Performed By: #### 2 247026, 0291803, 0540728, 74476487, 6617007, 5542660 ####[facility] [address] [place] [address] Globulin 3.3 g/dL Normal 1.4-4.0 [facility] Comment on above: Performed By: #### 2 883506, 4871965, 4198087, 55354341, 6814645, 6262613 ####[facility] [address] [place] [address] Glucose mass conc 116 mg/dL Normal 55-199 [facility] Comment on above: Result Comment: If t his glucose result represents a fasting glucose, interpretation should refer to the following reference range: 55-99 mg/dL Performed By: #### 2 429473, 0323176, 2089416, 07024662, 8531620, 8334198 ####[facility] [address] [place] [address] Potassium molar conc 3.4 mmol/L Low 3.5-5.3 [facility] Comment on above: Performed By: #### 2 739367, 7882377, 6054393, 05776958, 3918290, 2377111 ####[facility] [address] [place] [address] Protein 7.2 g/dL Normal 6.0-7.8 [facility] Comment on above: Performed By: #### 2 218438, 5920392, 3036331, 69913547, 2564504, 7966103 ####[facility] [address] [place] [address] Sodium 138 mmol/L Normal 135-145 [facility] Comment on above: Performed By: #### 2 653785, 7000502, 6937452, 97604850, 0127225, 8407280 ####[facility] [address] [facility] [place] [address] Urea nitrogen 10 mg/dL Normal 5-21 [facility] Comment on above: Performed By: #### 2 136293, 6527479, 8337880, 35128576, 4847580, 6890464 ####[facility] [address] [place] [address] Ethanolon 07-02-2017 Ethanol mg/dL Normal <=7 [facility] Comment on above: Result Comment: UL Performed By: #### 2 883896 ####[facility] [address] [place] [address] Pre-Arrival Noteon 7 Pre-Arrival Note Pre-Arrival SummaryN valeria: , EBEN Current Date: 07/02/2017 18:50:45 EDTGender: FemaleDate of : Age: 17Pre-Arrival Type: EMSETA: 07/02/2017 19:07:00 EDTPrimary Care Physician: Presenting Problem: SuicidalPre-Arrival User: Jeremy Zepeda RN LReferring Source: Location: [facility] Date/Time: 07/02/17 18:37:00[facility] Emergency Department Pre-Hospital Report Form Vital Signs: Pre-Hospital Report: Treatment in Route: Response to Treatment: Misc. Issues: Normal [facility] Salicylateon 07-02-2017 Salicylates mg/dL Low 6-29 [facility] Comment on above: Result Comment: LT Performed By: #### 2 454724, 1420386, 3146009, 85324782, 8313449, 9629536 ####[facility] [address] [place] [address] U BetaHcg Qualon 07-02-2017 CHORIOGONADOTROPIN.BE TA SUBUNIT:SCNC:PT:URINE :QN: Negative Normal [facility] Comment on above: Performed By: #### 2 7588381 ####[facility] [address] [place] [address] U Drug Screenon 07-02-2017 AMPHETAMINES:PRTHR:PT :URINE:ORD:SCREEN>100 0 NG/ML Negative Normal Negative [facility] Comment on above: Result Comment: Nega tive Cutoff: <1000 ng/mL Performed By: #### 2 090233 ####[place] [address] OPIATES:PRTHR:PT:URIN E:ORD:SCREEN Negative Normal Negative [facility] Comment on above: Result Comment: Nega tive Cutoff: <300 ng/mL Performed By: #### 2 110825 ####[place] [address] PHENCYCLIDINE:PRTHR:P T:URINE:ORD:SCREEN>25 NG/ML Negative Normal Negative [facility] Comment on above: Result Comment: Nega tive Cutoff: <25 ng/mLThese drug screen results are to be used for medical (i.e., treatment) purposes only. Unconfirmed drug screening results must not be used for non-medical purposes (e.g., employment testing, legal testing). Performed By: #### 2 944842 ####[place] [address] TETRAHYDROCANNABINOL: PRTHR:PT:URINE:ORD:SC REEN>50 NG/ML Negative Normal Negative [facility] Comment on above: Result Comment: Nega tive Cutoff: <50 ng/mL Performed By: #### 2 938727 ####[place] [address] Urine, barbiturates presence Negative Normal Negative [facility] Comment on above: Result Comment: Nega tive Cutoff: <200 ng/mL Performed By: #### 2 028564 ####[address] [address] Urine, benzodiazepines presence Negative Normal Negative [facility] Comment on above: Result Comment: Nega tive Cutoff: <200 ng/mL Performed By: #### 2 085514 ####[place] [address] Urine, cocaine presence Negative Normal Negative [facility] Comment on above: Result Comment: Nega tive Cutoff: <300 ng/mL Performed By: #### 2 706894 ####[place] [address] UA With Cult Reflexon 2016 Bilirubin Ql (U) Negative Normal Negative [facility] Comment on above: Performed By: #### 1 3491817 ####[place] [address] COLOR:TYPE:PT:URINE:N OM:AUTO YELLOW Normal Yellow [facility] Comment on above: Performed By: #### 1 4850304 ####[place] [address] Erythrocytes (RBC) 0-3 Normal 0-3 [facility] Comment on above: Performed By: #### 1 1494285 ####[place] [address] GLUCOSE:MCNC:PT:URINE :QN:TEST STRIP Negative Normal Negative [facility] Comment on above: Performed By: #### 1 0761389 ####[place] [address] KETONES:MCNC:PT:URINE :QN:TEST STRIP TRACE Abnormal Negative [facility] Comment on above: Performed By: #### 1 6425935 ####[place] [address] LEUKOCYTES:PRTHR:PT:U RINE:ORD:AUTOMATED 1+ Abnormal Negative [facility] Comment on above: Performed By: #### 1 8524999 ####[facility] [address] [place] [address] UA Spec Desc Clean Catch Normal [facility] Comment on above: Performed By: #### 1 0429223 ####[facility] [address] [facility] [address] Urine, clarity SL CLOUDY Abnormal Clear [facility] Comment on above: Performed By: #### 1 5906505 ####[facility] [address] [place] [address] Urine, hemoglobin presence Negative Normal Negative [facility] Comment on above: Performed By: #### 1 7478903 ####[facility] [address] [facility] [address] Urine, leukocytes in sedmiment 6-15 Abnormal 0-5 [facility] Comment on above: Performed By: #### 1 8450133 ####[facility] [address] [facility] [address] Urine, mucus presence in sediment 1+ Normal [facility] Comment on above: Performed By: #### 1 8079652 ####[facility] [address] [place] [address] Urine, nitrite presence Negative Normal Negative [facility] Comment on above: Performed By: #### 1 4574929 ####[facility] [address] [place] [address] Urine, pH 6.0 [pH] Invalid Interpretation Code 5.0-9.0 [facility] Comment on above: Performed By: #### 1 8596434 ####[facility] [address] [place] [address] Urine, protein Negative Normal Negative [facility] Comment on above: Performed By: #### 1 8464494 ####[facility] [address] [place] [address] Urine, specific gravity 1.025 Invalid Interpretation Code 1.005-1.03 0 [facility] Comment on above: Performed By: #### 1 8403292 ####[facility] [address] [place] [address] Urine, squamous cells in sediment 0-2 Normal 0-2 [facility] Comment on above: Performed By: #### 1 0374237 ####[facility] [address] [facility] [place] [facility] [place] [address] Urine, urobilinogen 0.2 {Gretel'U}/dL Normal 0.0-1.0 [facility] Comment on above: Performed By: #### 1 7937888 ####[facility] [address] [place] [address] eGFRon 07-02-2017 eGFR (black) mL/min/{1.73_m2} Normal >=59 [facility] Comment on above: Order Comment: Order added by Discern Expert. Result Comment: eGFR is race adjusted. AA=. Performed By: #### 2 849596, 4024404, 9760342, 03408009, 1306234, 2749062 ####[facility] [address] [facility] [address] eGFR (non-black) mL/min/{1.73_m2} Normal >=59 [facility] Comment on above: Order Comment: Order added by Discern Expert. Result Comment: Energy Projects Lead jorge kidney disease could be indicated at eGFR's of less than 60 mL/min/1.73m2. Kidney failure is indicated at less than 15 mL/min/1.73m2. Performed By: #### 2 550918, 8879315, 6000176, 00185100, 6196339, 7201808 ####[facility] [address] [place] [address] Coding Summary.on 06-12-2017 Coding Summary. CODING DATE: 017 FINAL [facility] STATUS: Short-Term Hosp as IP PAYOR: Medicaid [...] Revised Date Saved: 06/12/2017 10:23 am Normal [facility] ED Clinical Summaryon 2016 ED Clinical Summary (Inserted Image. Silvia ble to display) [place] [id number] ED Clinical SummaryPerson Information Name: Sakshi MAGANA/Eitan Age: 17 Years : 2000 12:00 AM Sex: Female Language:Malawian PCP: Kayden Kirkpatrick MD Marital Status:Single Visit [...] AM 06/11/2017 3:21 AM 06/11/2017 3:21 AM ADDRESS:[address] [place] [id number] PHYS DOC NOTES: Patient: CRIS MAGANA Age: 17 years Sex: Female : 2000 Associated Diagnoses: None Author: Matthew Galan MD Basic Information Addendum: Time of addendum:: 06/11/17 02:22:00 , Assumed care from: patient is seen and evaluated by mental health services. Patient is to be transferred to in patient psychiatric facility in [place]. Discharge diagnosis as per PA.. MEDICAL INFORMATION: Prescriptions Given:PATIENT EDUCATION INFORMATION: Instructions: Follow up:DIAGNOSIS:Hallucination; Suicide ideation Normal [facility] ED Note-Nursingon 06-11-2017 ED Note-Nursing 5 - This nurse to ct report from Kathy YA and will now be taking over for the care of this patient.1930 - Pt sleeping at this time, Grandmother in room. Grandmother aware that [facility] is to be coming eventually to talk to patient. Grandmother sts pt is tired from being at [place] all day today.1945 - Resting in bed, grandmother remains at [id number] - Resting in bed, grandmother remains at [id number] - Provided pt with warm blanket and [...] Pt resting in bed, Grandmother remains at bedside.5 - Resting, Grandmother at bedside.0 - Resting, Grandmother at bedside.2215 - Resting, [...] ER now. This nurse updated/gave report to [facility] and also provided [facility] with Grandmothers (legal [...] nursing station.0110 - This nurse spoke with P, per [facility] pt is going to be transferred to [...] this time, in view of nursing station. [facility] states [facility] will be here in 1 hour to take patient to rescue.0230 - Pt sleeping, in view of nursing [id number] - Pt remains sleeping, in view of nursing station.0300 - Pt remains sleeping, in view of nursing station.0308 - Report given to [facility], no further questions/needs. Pt ready to transfer to Rescue.0314 - Pt refusing to take PO Potassium.0315 - Security in room at this time, going through patient belongings, pt okay to get dressed for transfer.0318 - Pt discharged from ED, transferring to [facility] at this time. Normal [facility] ED Note-Physicianon 06-11-20 ED Note-Physician Patient: PEPE MAGANA Age: 17 years Sex: Female : 2000 Associated Diagnoses: None Author: Matthew Galan MD Basic Information Addendum: Time of addendum:: 06/11/17 02:22:00 , Assumed care from: patient is seen and evaluated by mental health services. Patient is to be transferred to in patient psychiatric facility in [place]. Discharge diagnosis as per PA.. Normal [facility] Comment on above: Result Comment: Elec tronically Signed By: Matthew Galan MD\.br\Date and Time Signed: 06/11/17 02:23 EDT ED Patient Education Noteon 06-11-2017 ED Patient Education Note Patient Education Materials Follows: Normal [facility] ED Patient Summaryon 017 ED Patient Summary (Inserted Image. Silvia ble to display) [place] [id number] Patient Discharge Instructions Person Information Name: CRIS MAGANA Age: 17 Years Date: 06/10/2017 5:50 PMDischarge Diagnosis: Hallucination; Suicide ideation Primary Care Physician: Kayden Kirkpatrick MD Provider InformationPrimary Provider: Matthew Galan MDPhysician Doctor Of Naprapathy:None The exam and treatment you received in the Emergency Department were for an urgent problem and are not intended as complete care. It is important that you follow up with a doctor, nurse practitioner, or physician?s assistant mechanic for ongoing care. If your symptoms become [...] No medications found. Medication Information:Comment: Pharmacy Information: [facility] [place] Thank you for choosing [facility] Patient Education Materials: MATT German ANGELINA , have received the following patient education materials/instructions and have verbalized understanding: Patient Education Materials: Follow-up Instructions: Prescriptions: Patient Signature Date Clinician/Nurse Signature Date 06/11/17 03:21:37 Normal [facility] UA With Cult Reflexon 2016 BACTERIA:PRTHR:PT:KIM ZURITA SED:ORD:MICROSCOPY.MANJINDER GHT 1+ /HPF Abnormal Trace [facility] Comment on above: Performed By: #### 2 192745, 3677201, 1898303, 75772139, 4150673, 9223576 ####[facility] [address] [place], [place] [address] Bilirubin Ql (U) Negative Normal Negative [facility] Comment on above: Performed By: #### 2 940850, 1450345, 9203886, 71450243, 1084556, 2647771 ####[place] [id number] CALCIUM OXALATE CRYSTALS:PRTHR:PT:URI NE SED:ORD:MICROSCOPY.LI GHT Present Normal [facility] Comment on above: Performed By: #### 2 310826, 8471614, 9387517, 31828701, 9716278, 2946456 ####[place] [id number] COLOR:TYPE:PT:URINE:N OM:AUTO YELLOW Normal Yellow [facility] Comment on above: Performed By: #### 2 851549, 5962952, 7275751, 07862145, 8796626, 0966611 ####[facility] [address] [place], [place] [address] CRYSTALS:PRTHR:PT:URI NE SED:ORD:MICROSCOPY.LI T Present [facility] Comment on above: Performed By: #### 2 687487, 7098795, 0344557, 89490128, 4039468, 7035085 ####[facility] [address] [place], [place] [address] Erythrocytes (RBC) 0-3 Normal 0-3 [facility] Comment on above: Performed By: #### 2 757683, 9765205, 8940992, 88005652, 8612627, 6675231 ####[facility] [address] [place] [address] GLUCOSE:MCNC:PT:URINE :QN:TEST STRIP Negative Normal Negative [facility] Comment on above: Performed By: #### 2 429742, 1783436, 9400322, 06107729, 2118073, 3674093 ####[facility] [address] [place] [address] KETONES:MCNC:PT:URINE :QN:TEST STRIP Negative Normal Negative [facility] Comment on above: Performed By: #### 2 719438, 0615923, 7892977, 68918122, 4607689, 1977075 ####[facility] [address] [place] [address] LEUKOCYTES:PRTHR:PT:U RINE:ORD:AUTOMATED TRACE Abnormal Negative [facility] Comment on above: Performed By: #### 2 251920, 3524724, 4052843, 80611520, 2183971, 9542308 ####[facility] [address] [place] [address] UA Spec Desc Clean Catch Normal [facility] Comment on above: Performed By: #### 2 863090, 8540368, 7361466, 78564094, 6641616, 1811129 ####[facility] [address] [place] [address] Urine, clarity CLOUDY Abnormal Clear [facility] Comment on above: Performed By: #### 2 352895, 0984661, 0849342, 05945067, 9299543, 6859808 ####[facility] [address] [place] [address] Urine, hemoglobin presence Negative Normal Negative [facility] Comment on above: Performed By: #### 2 984306, 5589321, 3717449, 94496811, 0433012, 2534067 ####[facility] [address] [place] [address] Urine, leukocytes in sedmiment 0-5 Normal 0-5 [facility] Comment on above: Performed By: #### 2 860616, 8986410, 1042891, 92019646, 0848505, 5399258 ####[facility] [address] [place] [address] Urine, nitrite presence Negative Normal Negative [facility] Comment on above: Performed By: #### 2 784041, 6985134, 9707608, 40220597, 5380837, 1784302 ####[facility] [address] [place] [address] Urine, pH 7.5 [pH] Invalid Interpretation Code 5.0-9.0 [facility] Comment on above: Performed By: #### 2 440343, 5808821, 1461068, 57365325, 9091430, 8357599 ####[facility] [address] [place] [address] Urine, protein Negative Normal Negative [facility] Comment on above: Performed By: #### 2 704968, 9248967, 1643614, 17606943, 4987883, 4937766 ####[facility] [address] [place] [address] Urine, specific gravity 1.015 Invalid Interpretation Code 1.005-1.03 0 [facility] Comment on above: Performed By: #### 2 772604, 9935081, 3870105, 80531360, 8322235, 2112526 ####[facility] [address] [place] [address] Urine, squamous cells in sediment 0-2 Normal 0-2 [facility] Comment on above: Performed By: #### 2 275371, 3965152, 5387763, 03925947, 7317230, 6472267 ####[facility] [address] [place] [address] Urine, urobilinogen 0.2 {Gretel'U}/dL Normal 0.0-1.0 [facility] Comment on above: Performed By: #### 2 568246, 4832874, 4710031, 05293371, 7646384, 2468201 ####[facility] [address] [place] [address] Acetamnphn Lvlon 06-10-2017 Acetaminophen mass conc <10 Low 15-30 [facility] Comment on above: Result Comment: LT\U L Performed By: #### 2 498802, 1605081, 8031092, 39525188, 2692417, 9718256 ####[facility] [address] [place] [address] Auto Diffon 06-10-2017 Basophils Auto #/vol (Bld) 0.0 E9/L Normal 0.0-0.2 [facility] Comment on above: Order Comment: Order Added by Discern Expert. Performed By: #### 2 418765, 9131636, 5708352, 37108097, 5126245, 9597597 ####[facility] [address] [place] [address] Basophils Auto #/vol (Bld) 0.4 % Normal 0.0-2.0 [facility] Comment on above: Order Comment: Order Added by Discern Expert. Performed By: #### 2 653991, 0383421, 2053462, 10245722, 5068790, 6877320 ####[address] [address] Eosinophils 0.4 E9/L Normal 0.0-0.5 [facility] Comment on above: Order Comment: Order Added by Nita Expert. Performed By: #### 2 857589, 0129256, 4143017, 67098314, 6235817, 1975443 ####[place] [address] [place] [address] Eosinophils/100 leukocytes 3.4 % Normal 0.0-8.0 [facility] Comment on above: Order Comment: Order Added by Discern Expert. Performed By: #### 2 797480, 5413664, 1226870, 33241351, 2717948, 1690866 ####[place] [address] [place] [address] Lymphocytes 3.5 E9/L Normal 1.0-4.0 [facility] Comment on above: Order Comment: Order Added by Nita Expert. Performed By: #### 2 211767, 5593737, 7188621, 12894968, 2352635, 8444822 ####[facility] [address] [place] [address] Lymphocytes/100 leukocytes 30.1 % Normal 14.0-50.0 [facility] Comment on above: Order Comment: Order Added by Discern Expert. Performed By: #### 2 667795, 8608809, 2171424, 74375945, 3337889, 2480605 ####[place] [address] [place] [address] Monocytes 0.8 E9/L Normal 0.2-1.0 [facility] Comment on above: Order Comment: Order Added by Nita Expert. Performed By: #### 2 821834, 5325168, 3424134, 48922380, 0172948, 8662853 ####[place] [address] [place] [address] Monocytes/100 leukocytes 6.7 % Normal 4.0-14.0 [facility] Comment on above: Order Comment: Order Added by Nita Expert. Performed By: #### 2 273322, 3503081, 2432976, 47419389, 8239254, 9518783 ####[place] [address] [place] [address] Neutrophils 6.9 E9/L Normal 2.0-7.5 [facility] Comment on above: Order Comment: Order Added by Nita Expert. Performed By: #### 2 876597, 8208405, 7699739, 68858435, 1308076, 1488082 ####[place] [address] [place] [address] Neutrophils/100 leukocytes 59.4 % Normal 36.0-75.0 [facility] Comment on above: Order Comment: Order Added by Nita Expert. Performed By: #### 2 766486, 7417667, 3355354, 64383343, 4408278, 1990110 ####[place] [address] [place] [address] CBC w/ Auto Diffon 7 Erythrocyte distribution width Auto Ratio (RBC) 12.3 % Normal 10.9-14.2 [facility] Comment on above: Performed By: #### 2 286315, 1587938, 5158692, 41259849, 6883815, 8615414 ####[place] [address] [place] [address] Erythrocytes (RBC) 5.0 E12/L Normal 4.3-5.9 [facility] Comment on above: Performed By: #### 2 706138, 7391267, 1447569, 53923237, 2232968, 9288327 ####[address] [address] Hematocrit (HCT) 42.9 % Normal 34.0-46.0 [facility] Comment on above: Performed By: #### 2 131073, 2048855, 0512212, 00768039, 2191371, 1359735 ####[place] [address] Hemoglobin mass conc (Bld) 14.6 g/dL Normal 12.0-16.0 [facility] Comment on above: Performed By: #### 2 828136, 8115913, 9172346, 60115212, 6351298, 2848433 ####[place] [address] [place] [address] MCH 29.2 pg Normal 27.0-34.0 [facility] Comment on above: Performed By: #### 2 527465, 2152068, 5142047, 29647294, 0180728, 5826255 ####[place] [address] [place] [address] MCHC mass conc (RBC) 34.0 g/dL Normal 31.4-39.3 [facility] Comment on above: Performed By: #### 2 131697, 7327588, 4056476, 19664219, 6388448, 9506798 ####[place] [address] [place] [address] MCV 86.0 fL Normal 80.0-100.0 [facility] Comment on above: Performed By: #### 2 402723, 2658784, 3195772, 22384542, 3533658, 6591596 ####[place] [address] [place] [address] Platelet mean volume (PMV) 8.1 fL Normal 6.4-10.8 [facility] Comment on above: Performed By: #### 2 997005, 6432987, 2191454, 92411344, 4148100, 5718319 ####[facility] [address] [place] [address] Platelets 283.0 E9/L Normal 150.0-500. 0 [facility] Comment on above: Performed By: #### 2 646971, 4972357, 0015972, 76203035, 6827791, 2700992 ####[address] [address] WBC (Leukocytes) 11.7 E9/L High 4.0-11.0 [facility] Comment on above: Performed By: #### 2 504332, 7506882, 2107799, 39587758, 2754583, 2858447 ####[place] [address] [place] [address] CMPon 06-10-2017 Alanine aminotransferase (ALT) 27 Int._Unit/L Normal 6-46 [facility] Comment on above: Performed By: #### 2 829149, 9554334, 1689993, 96201478, 0143798, 7759083 ####[facility] [address] [place] [address] Albumin 1.1 g/dL Normal 1.1-2.2 [facility] Comment on above: Performed By: #### 2 727461, 4483731, 7984051, 69123621, 1119232, 8245430 ####[facility] [address] [place] [address] Albumin 3.9 g/dL Normal 3.3-5.0 [facility] Comment on above: Performed By: #### 2 245515, 9326139, 5252250, 67062698, 9593845, 5005425 ####[facility] [address] [place] [address] Alkaline phosphatase (ALP) 88 Int._Unit/L Normal 21-98 [facility] Comment on above: Performed By: #### 2 891627, 8505882, 0859830, 57032621, 0736839, 4908376 ####[facility] [address] [place] [address] Aspartate aminotransferase (AST) 23 Int._Unit/L Normal 5-43 [facility] Comment on above: Performed By: #### 2 771896, 5160149, 2816011, 19408749, 9799605, 6374370 ####[facility] [address] [place] [address] Bilirubin (total) 0.4 mg/dL Normal 0.0-1.1 [facility] Comment on above: Performed By: #### 2 421687, 4473061, 4725804, 32192221, 6160390, 7465771 ####[facility] [address] [place] [address] BUN/Creatinine Ratio 20 No Units Normal 10-20 [facility] Comment on above: Performed By: #### 2 472323, 3343567, 9324338, 85842982, 5709518, 1403216 ####[facility] [address] [place] [address] Creatinine 0.9 mg/dL Normal 0.5-1.3 [facility] Comment on above: Performed By: #### 2 764345, 7777142, 1158034, 91982246, 8242322, 7871606 ####[facility] [address] [place] [address] Globulin 3.4 g/dL Normal 1.4-4.0 [facility] Comment on above: Performed By: #### 2 571694, 7009968, 8427963, 80320735, 4217294, 9505651 ####[facility] [address] [facility] [address] Protein 7.3 g/dL Normal 6.0-7.8 [facility] Comment on above: Performed By: #### 2 734368, 2739082, 2029049, 67138142, 2695550, 8994994 ####[facility] [address] [place] [address] Urea nitrogen 18 mg/dL Normal 5-21 [facility] Comment on above: Performed By: #### 2 809941, 7860331, 1840140, 09130753, 2777197, 3503755 ####[facility] [address] [place] [address] Anion gap 13 mmol/L Normal 6-16 [facility] Comment on above: Performed By: #### 2 063786, 0300116, 0278790, 70661432, 9855771, 9175033 ####[facility] [address] [place] [address] Calcium 9.1 mg/dL Normal 8.9-11.1 [facility] Comment on above: Performed By: #### 2 382838, 9128880, 3514162, 42297122, 4788357, 1863805 ####[facility] [address] [place] [address] Chloride 105 mmol/L Normal 101-111 [facility] Comment on above: Performed By: #### 2 967297, 1200008, 1641723, 98483137, 5015961, 8657502 ####[facility] [address] [facility] [place] [address] CO2 24 mmol/L Normal 21-31 [facility] Comment on above: Performed By: #### 2 408428, 1243784, 0078307, 31301698, 3864760, 7370585 ####[facility] [address] [place] [address] Glucose mass conc 95 mg/dL Normal 55-199 [facility] Comment on above: Result Comment: If t his glucose result represents a fasting glucose, interpretation should refer to the following reference range: 55-99 mg/dL Performed By: #### 2 634465, 3621540, 4783771, 82202043, 3332162, 3219441 ####[facility] [address] [place] [address] Potassium molar conc 2.9 mmol/L Low 3.5-5.3 [facility] Comment on above: Performed By: #### 2 510432, 5544348, 5184506, 84102683, 7574306, 9310276 ####[facility] [address] [place] [address] Sodium 139 mmol/L Normal 135-145 [facility] Comment on above: Performed By: #### 2 151539, 3920970, 6868193, 74203043, 3264829, 5601618 ####[facility] [address] [place] [address] Ethanolon 06-10-2017 Ethanol mg/dL Normal <=7 [facility] Comment on above: Result Comment: UL Performed By: #### 2 576180 ####[facility] [address] [place] [address] Pre-Arrival Noteon 7 Pre-Arrival Note Pre-Arrival SummaryN valeria: EBEN Current Date: 06/10/2017 17:56:56 EDTGender: Date of : Age: Pre-Arrival Type: EMSETA: 06/10/2017 18:13:[facility] Phys[facility]: Presenting Problem: suicidalPre-Arrival User: Soo Torre RN Source: Location: [facility] Date/Time: 06/10/17 17:44:00[facility] Emergency Department Pre-Hospital Report Form Vital Signs: Pre-Hospital Report: Treatment in Route: Response to Treatment: Misc. Issues: Normal [facility] Progress Note-Nurseon 2016 Progress Note-Nurse 1757: pt. in room at this time via [facility]. pt. states she is suicidal and [...] chest and felt homicidal towards her grandmother. 1815: this nurse at bedside with pt. at this time.1830: pt. to BR at this time.1843: pt. requests to speak with her grandmother [...] residing in a intermediate facility located in [facility] where she was intially placed on [...] grandmother states they spent the day at [place] and the pt. behaved well today and had no signs of anger or suicidal thoughts. once pt. arrived home pt. refused dinner at her grandmothers house and stated she would eat dinner once she got back to her snf. grandmothe states that her carefiver aksed if she could place a lid over her frying goyal becuase it was splattering grease on the floor, when pt. burst out of house screaming, cursing, and running down the street. pt. then called squad at that time for suicidal ideation. 1899: report given to FELTON Granda. Normal [facility] Salicylateon 06-10-2017 Salicylates mg/dL Low 6-29 [facility] Comment on above: Result Comment: LT Performed By: #### 2 426105, 2224812, 7215378, 17291416, 4958046, 0463071 ####[facility] [address] [place] [address] U BetaHcg Qualon 06-10-2017 CHORIOGONADOTROPIN.BE TA SUBUNIT:SCNC:PT:URINE :QN: Negative Normal [facility] Comment on above: Performed By: #### 2 2456615 ####[facility] [address] [place] [address] U Drug Screenon 06-10-2017 AMPHETAMINES:PRTHR:PT :URINE:ORD:SCREEN>100 0 NG/ML Negative Normal Negative [facility] Comment on above: Result Comment: Nega tive Cutoff: <1000 ng/mL Performed By: #### 2 822060, 6923422, 0843544, 86342857, 3799962, 6369340 ####[facility] [address] [place] [address] OPIATES:PRTHR:PT:URIN E:ORD:SCREEN Negative Normal Negative [facility] Comment on above: Result Comment: Nega tive Cutoff: <300 ng/mL Performed By: #### 2 244852, 1735961, 2861968, 63708192, 2653627, 3104348 ####[facility] [address] [place] [address] PHENCYCLIDINE:PRTHR:P T:URINE:ORD:SCREEN>25 NG/ML Negative Normal Negative [facility] Comment on above: Result Comment: Nega tive Cutoff: <25 ng/mLThese drug screen results are to be used for medical (i.e., treatment) purposes only. Unconfirmed drug screening results must not be used for non-medical purposes (e.g., employment testing, legal testing). Performed By: #### 2 656056, 6563666, 1447077, 95512997, 8580041, 3682399 ####[facility] [address] [place] [address] TETRAHYDROCANNABINOL: PRTHR:PT:URINE:ORD:SC REEN>50 NG/ML Negative Normal Negative [facility] Comment on above: Result Comment: Nega tive Cutoff: <50 ng/mL Performed By: #### 2 263339, 1717956, 5411052, 53229854, 0820026, 5614333 ####[facility] [address] [place] [address] Urine, barbiturates presence Negative Normal Negative [facility] Comment on above: Result Comment: Nega tive Cutoff: <200 ng/mL Performed By: #### 2 775509, 7090124, 3639899, 62790536, 0254942, 4732436 ####[facility] [address] [place] [address] Urine, benzodiazepines presence Negative Normal Negative [facility] Comment on above: Result Comment: Nega tive Cutoff: <200 ng/mL Performed By: #### 2 [id number] ####[id number] [place] [address] Urine, cocaine presence Negative Normal Negative [facility] Comment on above: Result Comment: Nega tive Cutoff: <300 ng/mL Performed By: #### 2 [id number] ####[address] [place] [address] eGFRon 06-10-2017 eGFR (black) mL/min/{1.73_m2} Normal >=59 [facility] Comment on above: Order Comment: Order added by Discern Expert. Result Comment: eGFR is race adjusted. AA=. Performed By: #### 2 [id number] ####[facility] [id number] [place] [address] eGFR (non-black) mL/min/{1.73_m2} Normal >=59 [facility] Comment on above: Order Comment: Order added by Discern Expert. Result Comment: Energy Projects Lead jorge kidney disease could be indicated at eGFR's of less than 60 mL/min/1.73m2. Kidney failure is indicated at less than 15 mL/min/1.73m2. Performed By: #### 2 [id number] ####[facility] [id number] [place] [address] Vital Signs Date Time Vital Sign Value Performing Clinician Facility 10-15-2023 12:45-0500 Body height 168.91 cm [facility] Other [facility] Other 10-15-2023 12:45-0500 Body mass index (BMI) [Ratio] 54.8 kg/m2 [facility] Other [facility] Other 10-15-2023 12:45-0500 Body weight 156.36 kg [facility] Other [facility] Other 10-15-2023 12:45-0500 Diastolic blood pressure 88 mm[Hg] [facility] Other [facility] Other 10-15-2023 12:45-0500 Respiratory rate 97 /min [facility] Other [facility] Other 10-15-2023 12:45-0500 SaO2% (BldA) [Mass fraction] 99 % [facility] Other [facility] Other 10-15-2023 12:45-0500 Systolic blood pressure 136 mm[Hg] [employer] Other [facility] Other 10-06-2023 07:30-0500 Body temperature 97.6 [degF] MD Joi Prieto Work Phone: [facility] 10-06-2023 07:30-0500 Diastolic blood pressure 69 mm[Hg] MD Joi Prieto Work Phone: [facility] 10-06-2023 07:30-0500 Heart rate 105 /min MD Joi Prieto Work Phone: [facility] 10-06-2023 07:30-0500 Respiratory rate 18 /min MD Joi Prieto Work Phone: [facility] 10-06-2023 07:30-0500 SaO2% (BldA) [Mass fraction] 95 % MD Joi Prieto Work Phone: [facility] 10-06-2023 07:30-0500 Systolic blood pressure 91 mm[Hg] MD Joi Prieto Work Phone: [facility] 10-03-2023 14:02-0500 Body height 167.64 cm MD Joi Prieto Work Phone: [facility] 10-03-2023 00:30-0500 Body weight 156.03 kg MD Joi Prieto Work Phone: [facility] 08-09-2023 12:45-0500 Body height 168.91 cm [employer] Other [facility] Other 08-09-2023 12:45-0500 Body mass index (BMI) [Ratio] 54.65 kg/m2 [facility] Other [facility] Other 08-09-2023 12:45-0500 Body weight 155.95 kg [employer] Other [facility] Other 08-09-2023 12:45-0500 Diastolic blood pressure 84 mm[Hg] Santi Strolby Other [facility] Other 08-09-2023 12:45-0500 Respiratory rate 18 /min [employer] Other [facility] Other 08-09-2023 12:45-0500 SaO2% (BldA) [Mass fraction] 98 % [employer] Other [facility] Other 08-09-2023 12:45-0500 Systolic blood pressure 136 mm[Hg] [employer] Other [facility] Other 07-16-2023 07:30-0400 Body temperature 98.3 [degF] MD Joi Prieto Work Phone: [facility] 07-16-2023 07:30-0400 Diastolic blood pressure 72 mm[Hg] MD Joi Prieto Work Phone: [facility] 07-16-2023 07:30-0400 Heart rate 94 /min MD Joi Prieto Work Phone: [facility] 07-16-2023 07:30-0400 Respiratory rate 16 /min MD Joi Prieto Work Phone: [facility] 07-16-2023 07:30-0400 SaO2% (BldA) [Mass fraction] 98 % MD Joi Prieto Work Phone: [facility] 07-16-2023 07:30-0400 Systolic blood pressure 118 mm[Hg] MD Joi Prieto Work Phone: [facility] 07-12-2023 14:38-0400 Body height 167.64 cm MD Joi Prieto Work Phone: [facility] 07-11-2023 22:45-0400 Body weight 146.96 kg MD Joi Prieto Work Phone: [facility] 06-22-2023 07:30-0400 Body temperature 97.3 [degF] MD Joi Prieto Work Phone: [facility] 06-22-2023 07:30-0400 Diastolic blood pressure 80 mm[Hg] MD Joi Prieto Work Phone: [facility] 06-22-2023 07:30-0400 Heart rate 95 /min MD Joi Prieto Work Phone: [facility] 06-22-2023 07:30-0400 Respiratory rate 18 /min MD Joi Prieto Work Phone: [facility] 06-22-2023 07:30-0400 SaO2% (BldA) [Mass fraction] 96 % MD Joi Prieto Work Phone: [facility] 06-22-2023 07:30-0400 Systolic blood pressure 124 mm[Hg] MD Joi Prieto Work Phone: [facility] 06-19-2023 14:28-0400 Body height 167.64 cm MD Joi Prieto Work Phone: [facility] 06-18-2023 11:03-0400 Body weight 146.51 kg MD Joi Prieto Work Phone: [facility] 04-05-2022 08:21-0400 Diastolic blood pressure 55 mm[Hg] Hugo Pearce DMD, MD Work Phone: [facility] 04-05-2022 08:21-0400 Heart rate 101 /min Hugo Pearce DMD, MD Work Phone: [facility] 04-05-2022 08:21-0400 Systolic blood pressure 96 mm[Hg] Hugo Pearce DMD, MD Work Phone: [facility] 02-01-2022 15:33-0400 Diastolic blood pressure 74 mm[Hg] Hugo Pearce DMD, MD Work Phone: [facility] 02-01-2022 15:33-0400 Heart rate 99 /min Hugo Pearce DMD, MD Work Phone: [facility] 02-01-2022 15:33-0400 Systolic blood pressure 127 mm[Hg] Hugo Pearce DMD, MD Work Phone: [facility] 02-01-2022 15:26-0400 Body height 167.6 cm Hugo Pearce DMD, MD Work Phone: [facility] 02-01-2022 15:26-0400 Body mass index (BMI) [Ratio] 48.91 kg/m2 Hugo Pearce DMD, MD Work Phone: [facility] 02-01-2022 15:26-0400 Body weight 137.44 kg Hugo Pearce DMD, MD Work Phone: [facility] NEGATED: Highlighted row BMI (Body Mass Index) Penola Welch [facility] NEGATED: Highlighted row BMI (Body Mass Index) Penola Welch [facility] NEGATED: Highlighted row Body Temperature [facility] NEGATED: Highlighted row Body Temperature [facility] NEGATED: Highlighted row [...] al [facility]tr NEGATED: Highlighted row Height Carolina Welch [facility] NEGATED: Highlighted row Pulse (Heart Rate) [facility] NEGATED: Highlighted row Pulse (Heart Rate) [facility] NEGATED: Highlighted row Pulse Oximetry Carolina Welch [facility] NEGATED: Highlighted row Pulse Oximetry Carolina Welch [facility] NEGATED: Highlighted row Respiratory Rate Carolina Welch [facility] NEGATED: Highlighted row Respiratory Rate Carolina Welch [facility] Encounters Encounter Date Encounter Type Care Provider Facility Start: 11-01-2023 End: 11-02-2023 ambulatory NORTON Jodee [facility] Start: 11-01-2023 Encounter for gynecological examination (general) (routine) without abnormal findings [facility] Start: 10-24-2023 End: 10-25-2023 ambulatory [facility] Start: 10-15-2023 End: 10-15-[address] [facility] Other Start: 10-15-2023 Follow-up encounter Santi regalado [facility] Start: 10-02-2023 End: 10-06-2023 Evaluation and management of inpatient Bladepavel Goel Facility:[facility] Start: 10-02-2023 End: 10-06-2023 Evaluation and management of inpatient MD Joi Prieto Work Phone: [facility] Work Phone: Start: 09-11-2023 ([facility] PGX) Pharmacogenic Patti Quispe [facility] Start: 09-11-2023 End: 09-11-2023 ambulatory Patti Mcnamara Other [facility] Other Start: 09-11-2023 Registered Recurring MD Nawaf Prieto Work Phone: [facility] Work Phone: Start: 08-27-2023 ambulatory Blade Walters acility:[facility] Start: 08-15-2023 End: 08-16-2023 ambulatory LISSETTE [facility] Start: 08-13-2023 End: 08-14-2023 ambulatory LISSETTE Pavon [facility] Start: 08-10-2023 End: 08-10-2023 ambulatory Santi Valenzuela Other [facility] Other Start: 08-10-2023 Telephone encounter Santi regalado [facility] Start: 08-09-2023 End: 08-09-2023 ambulatory Santi Valenzuela Other [facility] Other Start: 08-09-2023 Nutrition therapy Santi Aleln and [facility] Start: 07-12-2023 End: 07-16-2023 Evaluation and management of inpatient Joi Prieto Facility:[facility] Start: 07-11-2023 End: 07-16-2023 Evaluation and management of inpatient MD Joi Prieto Work Phone: [facility] Work Phone: Start: 06-18-2023 End: 06-22-2023 Evaluation and management of inpatient Arben Webber Facility:[facility] Start: 06-18-2023 End: 06-22-2023 Evaluation and management of inpatient MD Joi Prieto Work Phone: [facility] Work Phone: Start: 06-13-2023 End: 06-14-2023 ambulatory HEATH ELLIS [facility] Start: 06-13-2023 End: 06-13-2023 Subsequent hospital visit by physician Heath Ellis [employer] Work Phone: [facility] Start: 04-12-2023 End: 04-13-2023 ambulatory HEATH Pavon [facility] Start: 02-28-2023 End: 03-01-2023 ambulatory HEATH Pavon [facility] Start: 02-28-2023 End: 02-28-2023 Subsequent hospital visit by physician Heath Ellis [employer] Work Phone: [facility] Start: 01-18-2023 End: 01-19-2023 ambulatory HEATH Pavon [facility] Start: 01-18-2023 End: 01-18-2023 Subsequent hospital visit by physician Heath Ellis [employer] Work Phone: [facility] Start: 01-17-2023 End: 01-18-2023 ambulatory HEATH Pavon [facility] Start: 01-17-2023 End: 01-17-2023 Subsequent hospital visit by physician Heath Ellis [employer] - [employer] Work Phone: [facility] Start: 10-25-2022 End: 10-25-2022 Subsequent hospital visit by physician Heath Ellis [employer] - [employer] Work Phone: [facility] Start: 07-13-2022 End: 07-13-2022 Subsequent hospital visit by physician Heath Ellis [employer] - [employer] Work Phone: [facility] Start: 05-02-2022 End: 05-02-2022 Subsequent hospital visit by physician Heath Ellis [employer] - [employer] Work Phone: [facility] Comment on above: Screen for STD (sexu ally transmitted disease) Start: 04-05-2022 ambulatory SELF PATIENT Facility: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); Body mass index (BMI) 45.0-49.9, adult ([facility]) Start: 10-12-2021 End: 10-12-2021 Subsequent hospital visit by physician Joi Prieto MD Work Phone: [facility] Start: 05-18-2021 End: 05-18-2021 Subsequent hospital visit by physician Joi Prieto MD Work Phone: [facility] Start: 04-13-2021 End: 04-13-2021 Subsequent hospital visit by physician Joi Prieto MD Work Phone: [facility] Start: 02-02-2021 End: 02-02-2021 Subsequent hospital visit by physician Jay Gomez DO Work Phone: [facility] Start: 04-27-2020 End: 04-27-2020 Subsequent hospital visit by physician Jay Gomez [facility] Start: 04-15-2020 End: 04-15-2020 Patient encounter procedure KLEBER PRIETO Facility: Start: 09-14-2019 End: 09-14-2019 Patient encounter procedure DOCTOR LARSON Facility: Start: 02-27-2018 End: 02-27-2018 Ambulatory Gabo Miranda Facility:[facility] Start: 12-16-2017 Emergency department patient visit Barbara Bainsfield Facility:[facility] Start: 12-05-2017 End: 12-06-2017 Ambulatory [facility] Facility[facility] Start: 12-03-2017 End: 12-04-2017 Ambulatory Gabo Miranda Facility:[facility] Start: 12-03-2017 End: 12-04-2017 Ambulatory Gabo Miranda Facility:[facility] Start: 11-30-2017 End: 12-01-2017 Emergency department patient visit Nodr No Doctor Assigned Facility:[facility] Start: 11-30-2017 End: 11-30-2017 Ambulatory [facility] Facility[facility] Start: 11-27-2017 End: 11-30-2017 Emergency department patient visit Nodr No Doctor Assigned Facility:[facility] Start: 11-22-2017 End: 11-23-2017 Emergency department patient visit Conrado Horn Facility:[facility] Start: 10-16-2017 End: 10-17-2017 Emergency department patient visit Barbara Cadiz Facility:[facility] Start: 10-08-2017 End: 10-09-2017 Ambulatory [facility]AB[facility]OVANNI [facility] Facility:[facility] Start: 10-02-2017 End: 10-02-2017 Departed Referred Carolina Welch [facility] Start: 09-20-2017 End: 09-21-2017 [facility] Start: 09-18-2017 End: 09-19-2017 Ambulatory ERIC [facility] Facility:[facility] Start: 09-15-2017 End: 09-15-2017 Emergency department patient visit Barbara Mcknight Facility:[facility] Start: 09-03-2017 End: 09-04-2017 Ambulatory Barbara Juan Luis Facility:[facility] Start: 08-21-2017 End: 08-21-2017 Patient encounter procedure Jamesalvaro Welch [facility] Start: 08-07-2017 End: 08-07-2017 Emergency department patient visit Barbaraclarissa Mcknight Facility:[facility] Start: 08-06-2017 End: 08-06-2017 Emergency department patient visit Barbara Mcknight Facility:[facility] Start: 07-29-2017 End: 07-30-2017 Emergency department patient visit Barbara Mcknight Facility:[facility] Start: 07-26-2017 Emergency department patient visit Barbara Bainsfield Facility:[facility] Start: 07-25-2017 End: 07-25-2017 Emergency department patient visit Barbara Bainsfield Facility:[facility] Start: 07-24-2017 End: 07-24-2017 Emergency department patient visit Barbara Mcknight Facility:[facility] Start: 07-15-2017 End: 07-24-2017 Evaluation and management of inpatient KUL B [facility] Start: 07-14-2017 End: 07-15-2017 Emergency department patient visit Barbara Mcknight Facility:[facility] Start: 07-12-2017 End: 07-12-2017 Emergency department patient visit Barbara Mcknight Facility:[facility] Start: 07-11-2017 End: 07-12-2017 Emergency department patient visit Barbara Mcknight Facility:[facility] Start: 07-02-2017 End: 07-03-2017 Emergency department patient visit Eddie Oro Facility:[facility] Start: 06-10-2017 End: 06-11-2017 Emergency department patient visit Ryan Kevin Facility:[facility] Start: 05-14-2016 End: 05-14-2016 Emergency department patient visit Carolina Welch [facility] Start: 05-03-2016 End: 05-09-2016 Evaluation and management of inpatient Carolina Welch [facility] Start: 04-11-2016 End: 04-11-2016 Emergency department patient visit Carolina Welch [facility] Start: 04-08-2016 End: 04-08-2016 Emergency department patient visit Carolina Welch [facility] Start: 04-06-2006 End: 04-05-2006 Emergency department patient visit Carolina Welch [facility] Start: 03-31-2006 Registered Recurring Carolina Welch [facility] Start: 03-01-2006 End: 03-30-2006 Discharged Recurring Carolina Welch [facility] Start: 02-06-2006 End: 02-28-2006 Discharged Recurring Carolina Welch [facility] Procedures Date Procedure Procedure Detail Performing Clinician Start: 06-13-2023 Comprehensive metabo lic panel Lissette Paulinor [employer] Work Phone: Start: 02-28-2023 Comprehensive metabo lic panel Lissette L Galina [employer] Work Phone: Start: 01-18-2023 Comprehensive metabo lic panel Lissette L Galina [employer] Work Phone: Start: 10-25-2022 Basic metabolic pane l calcium total Lissette L Galina [employer] Work Phone: Start: 10-25-2022 Lipid panel Lissette tierney [employer] Work Phone: Start: 07-13-2022 Basic metabolic pane l calcium total Heath Ellsworth Rhonda [employer] - [employer] Work Phone: Start: 07-13-2022 Lipid panel Heath joseph [employer] Work Phone: Start: 04-05-2022 extraction, erupted tooth [...] 05-18-2021 Potassium serum plasma/whole blood Heath Ellis [employer] Work Phone: Start: 04-13-2021 Basic metabolic pane l calcium total Irina Noguera MD Work Phone: Start: 04-13-2021 Lipid panel Irina uriostegui MD Work Phone: Start: 04-27-2020 Urnls dip stick/tabl et reagent auto microscopy Joi Prieto Work Phone: Start: 10-07-2019 Microscopic observat ion [Identifier] in Cervix by Cyto stain Joi Prieto MD Work Phone: Start: 10-02-2017 Urine culture Carolina theodore Start: 07-23-2017 DISCHARGE PATIENT KUL G UPTA Start: 07-16-2017 FULL CODE BRIGIDO GARDNER Start: 07-15-2017 IP CONSULT TO HISTOR Y AND PHYSICAL BRIGIDO GARDNER Start: 07-15-2017 , URINE BRIGIDO GRANT PTA Start: 07-15-2017 DIET GENERAL BRIGIDO GARDNER Start: 07-15-2017 SUICIDE PRECAUTIONS BRIGIDO GARDNER Start: 07-15-2017 PATIENT STATUS (DIRECT) BRIGIDO GARDNER Plan of Treatment Date Care Activity Detail Author Start: 2048 Shingles (RZV) Vaccine (1 of 2) Shingles (RZV) Vaccine (1 of 2) [facility] Start: 06-13-2024 GFR test (Diabetes, CKD 3-4, OR last GFR 15-59) GFR test (Diabetes, CKD 3-4, OR last GFR 15-59) [facility] [employer] Start: 06-13-2024 Hemoglobin A1c measurement A1C test (Diabetic or Prediabetic) [facility] [employer] Start: 04-12-2024 Lipid panel Lipids [facility] [employer] Start: 02-29-2024 GFR test (Diabetes, CKD 3-4, OR last GFR 15-59) GFR test (Diabetes, CKD 3-4, OR last GFR 15-59) [facility] [employer] Start: 01-19-2024 GFR test (Diabetes, CKD 3-4, OR last GFR 15-59) GFR test (Diabetes, CKD 3-4, OR last GFR 15-59) [facility] [employer] Start: 10-25-2023 GFR test (Diabetes, CKD 3-4, OR last GFR 15-59) GFR test (Diabetes, CKD 3-4, OR last GFR 15-59) [facility] [employer] Start: 10-25-2023 Hemoglobin A1c measurement A1C test (Diabetic or Prediabetic) [employer] Start: 10-25-2023 Lipid panel Lipids [facility] [employer] Start: 10-06-2023 [facility] Start: 10-03-2023 Hospital admission [facility] Start: 08-06-2023 End: 08-06-2023 Patient encounter procedure 08/06/2023 2:10 PM EST Office Visit [facility] [place] [address] Raiza Gutierres APRN - CNJodee [address] [facility] [place] [address] *NA [facility] Comment on above: *NA Start: 07-16-2023 [facility] Start: 07-13-2023 Hemoglobin A1c measurement A1C test (Diabetic or Prediabetic) [facility] Start: 07-13-2023 Lipid panel Lipids [facility] Start: 07-11-2023 Hospital admission [facility] Start: 06-22-2023 [facility] Start: 06-18-2023 Hospital admission [facility] Start: 05-07-2023 End: 05-07-2023 Patient encounter procedure 05/07/2023 Office Visit Obstetrics and Gynecology Raiza Gutierres, F[employer] INSTRUCTOR - CN [address] [place] [address] [facility] Start: 05-02-2023 Depression Monitoring Depression Monitoring [facility] [employer] [facility] Start: 05-02-2023 Screening for Chlamydia trachomatis Chlamydia/GC screen [facility] [employer] Start: 05-01-2023 Influenza vaccination [facility] Start: 04-28-2023 Lipid panel Lipids [facility] Start: 10-26-2022 Hemoglobin A1c measurement A1C test (Diabetic or Prediabetic) [facility] Start: 10-07-2022 Screening for malignant neoplasm of cervix [facility] Start: 06-01-2022 Influenza vaccination Flu vaccine (#1) [facility] Start: 05-01-2022 Influenza vaccination [facility] Start: 04-27-2022 Thyroid stimulating hormone measurement TSH testing [facility] Start: 04-13-2022 Hemoglobin A1c measurement A1C test (Diabetic or Prediabetic) [facility] Start: 04-13-2022 Lipid panel Lipid screen [facility] Start: 03-20-2022 End: 03-20-2022 Patient encounter procedure [facility] Start: 02-02-2022 Hemoglobin A1c measurement A1C test (Diabetic or Prediabetic) [facility] Work Phone: Start: 02-02-2022 Lipid panel Lipid screen [facility] [employer] Phone: Start: 06-01-2021 Influenza vaccination [facility] [employer] Start: 02-09-2021 End: 02-09-2021 Patient encounter procedure 02/09/2021 Office Visit Obstetrics and Gynecology Raiza Gutierres APRN - JEANINE [address] [place] [address] [facility] Start: 10-29-2020 HbA1c (Bld) [Mass fraction] A1C test (Diabetic or Prediabetic) [place], [place] Start: 10-29-2020 Lipid panel Lipid screen [place] Start: 10-07-2020 Screening for Chlamydia trachomatis Chlamydia screen [facility] Start: 06-01-2020 Influenza vaccination Flu vaccine (#1) [place] Start: 10-23-2019 Thyroid stimulating hormone measurement TSH testing [facility] [employer] Phone: Start: 10-23-2019 TSH Qn TSH testing [place] Start: 08-31-2019 DTaP/Tdap/Td vaccine (6 - Td or Tdap) DTaP/Tdap/Td vaccine (6 - Td or Tdap) [facility] Start: 08-31-2019 DTaP/Tdap/Td vaccine (6 - Td) DTaP/Tdap/Td vaccine (6 - Td) [place] Start: 08-31-2019 Tetanus vaccination [facility] Start: 2019 Screening for malignant neoplasm of cervix Pap Smear [facility] Start: 2016 Diabetic microalbuminuria test Diabetic microalbuminuria test [place], [place] Start: 2016 Diabetic retinal exam Diabetic retinal exam [facility] Start: 2016 Glaucoma screening Diabetic retinal exam [facility] Start: 2016 Hepatitis C screening [facility] Start: 2016 Screening for Chlamydia trachomatis STI Screening (Age 18-24) [facility] Start: 2016 Urine screening for protein [facility] Start: 2014 COVID-19 Vaccine (1) COVID-19 Vaccine (1) [facility] [employer] Phone: Start: 2014 Meningococcal B (Bexsero,OMV) Vaccine (Optional,16-23 years) (#1) Meningococcal B (Bexsero,OMV) Vaccine (Optional,16-23 years) (#1) [facility] Start: 2013 HIV screening HIV Test [facility] Start: 2010 COVID-19 Vaccine (1) COVID-19 Vaccine (1) [facility] [employer] Phone: Start: 2010 Depression Monitoring Depression Monitoring [facility] Start: 2008 Diabetic foot examination Diabetic foot exam [facility] Start: 2008 Diabetic retinal exam Diabetic retinal exam [place], [place] Start: 2004 Pneumococcal 0-64 years Vaccine (1 - PCV) Pneumococcal 0-64 years Vaccine (1 - PCV) [facility] Start: 2004 Pneumococcal 0-64 years Vaccine (1 of 1 - PPSV23) Pneumococcal 0-64 years Vaccine (1 of 1 - PPSV23) [place], [place] Start: 2004 Pneumococcal 0-64 years Vaccine (1 of 2 - PPSV23) Pneumococcal 0-64 years Vaccine (1 of 2 - PPSV23) [facility] Start: 2003 COVID-19 Vaccine (1) COVID-19 Vaccine (1) [facility] Start: 01-14-2002 Hepatitis B vaccine (2 of 3 - 3-dose series) Hepatitis B vaccine (2 of 3 - 3-dose series) [facility] Start: 01-14-2002 Hepatitis B vaccine (2 of 3 - Risk 3-dose series) Hepatitis B vaccine (2 of 3 - Risk 3-dose series) [facility] Start: 1998 COVID-19 Vaccine (#1) COVID-19 Vaccine (#1) [facility] Start: 1998 Hepatitis C screening Hepatitis C screen [facility] End: 05-02-2022 C.trachomatis N.gonorrhoeae DNA [facility] Phone: Comment on above: 1 Occurrences starting 05/02/2022 until 05/02/2022 End: 06-13-2023 Comprehensive metabolic 2000 panel - Serum or Plasma [employer] Work Phone: Comment on above: Once for 1 Occurrences starting 06/13/20 until 06/13/2023 End: 02-28-2023 Hemoglobin A1c/Hemoglobin.total in Blood [employer] Work Phone: Comment on above: Once for 1 Occurrences starting 02/29/20 until 02/28/2023 End: 06-13-2023 Hemoglobin A1c/Hemoglobin.total in Blood [employer] Comment on above: Once for 1 Occurrences starting 06/13/20 until 06/13/2023 Patient Education Schizoaffectiv e Disorder (DC) [facility] [place] Instructions [facility] Work Phone: Patient referral [facility] Work Phone: Immunizations Immunization Date Immunization Notes Care Provider [facility] 07-13-2023 influenza, injectabl e, quadrivalent, preservative free MD Joi Prieto Work Phone: [facility] 02-24-2011 human papilloma viru s vaccine, quadrivalent Hugo Pearce DMD, MD Work Phone: [facility] 11-17-2010 human papilloma viru s vaccine, quadrivalent Hugo Pearce DMD, MD Work Phone: [facility] 08-03-2010 human papilloma viru s vaccine, quadrivalent Hugo Pearce DMD, MD Work Phone: [facility] 08-31-2009 Meningococcal, MCV4, unspecified conjugate formulation(groups A, C, Y and W-135) Hugo Pearce DMD, MD Work Phone: [facility] 08-31-2009 tetanus toxoid, reduced diphtheria toxoid, and acellular pertussis vaccine, adsorbed Hugo Pearce DMD, MD Work Phone: [facility] 08-31-2009 varicella virus vaccine Hugo Pearce DMD, MD Work Phone: [facility] 10-31-2004 varicella virus vaccine Hugo Pearce DMD, MD Work Phone: [facility] 1998 hepatitis B vaccine, pediatric or pediatric/adolescent dosage Hugo Pearce DMD, MD Work Phone: [facility] Payers Date Payer Category Payer Self-pay 2018 Medicaid MEDICAID [facility] DEPT OF JOB [id number] 2018-Present [phone] [address] [place] [address] [id number] 2017 Medicaid 1998 Unknown [id number] 1998 Unknown [id number] 1998 Unknown [id number] [id number] 1998 Unknown [id number] [id number] 1959 Medicaid [id number] 1949 Unknown [id number] 1949 Unknown [id number] [id number] 1949 Unknown [id number] 2.16.840.1.386157.3.579.2. 1949 Unknown [id number] 2.16.840.1.640660.3.579.2.173 1949 Unknown [id number] 2.16.840.1.106162.3.579.2. 1949 Unknown [id number] 2.16.840.1.293146.3.579.2.173 1949 Unknown [id number] 2.16.840.1.178882.3.579.2.173 1949 Unknown [id number] 2.16.840.1.699611.3.579.2.173 1949 Unknown [id number] 2.16.840.1.055227.3.579.2.173 Medicaid [id number] Unknown [id number] 2.16.840.1.551751.3.579.2.531 Unknown [id number] 2.16.840.1.410144.3.579.2.531 Unknown [id number] 2.16.840.1.181505.3.579.2.531 Unknown [id number] 2.16.840.1.654371.3.579.2.531 Unknown [id number] [id number] Social History Date Type Detail Facility Start: 10-07-2019 End: 05-02-2022 Tobacco smoking status DCIS Former smoker [facility] Start: 10-07-2019 End: 05-02-2022 Cigarettes smoked current (pack per day) - [facility]orted [facility] [place] Start: 10-07-2019 End: 05-02-2022 Tobacco use and exposure [facility] [place] Start: 10-07-2019 End: 05-02-2022 Alcohol intake Current drinker of alcohol (finding) [place], [place] Start: 1998 Sex Assigned At Not on file [place], [place] Start: 11-06-2013 Tobacco Comment Mother smokes [facility] Work Phone: Start: 04-22-2022 End: 05-02-2022 Exposure to SARS-CoV-2 (event) Not sure [facility] Start: 02-01-2022 End: 01-03-2024 Tobacco smoking status NHIS Never smoked tobacco [facility] History of tobacco use Current smoker [facility] Work Phone: History of tobacco use Cigarette Smoker [facility] [employer] Work Phone: Start: 05-02-2022 Tobacco use panel [facility] [employer] Patient Health Questionnaire 9 item (PHQ-9) total score [Reported] 10 [facility] [employer] Start: 2000 Sex Assigned At Female [facility] Medical Equipment Procedure Code Equipment Code Equipment Origin al Text Equipment Identifier Dates NovoFine Plus Pe n Needle 32G X 4 MM Start: 08-09-2023 Goals Date Patient Goal Desired Activity /State Functional Status Date Assessment Result Facility 10-06-2023 Functional status Patient at Baseline [facility] Work Phone: 07-16-2023 Functional status Patient at Baseline [facility] Work Phone: 06-22-2023 Functional status Patient at Baseline [facility] Work Phone: Mental Status Date Assessment Result Facility 10-06-2023 Cognitive function Cognitive Sta tus Patient at Baseline [facility] Work Phone: 07-16-2023 Cognitive function Cognitive Sta tus Patient at Baseline [facility] Work Phone: 06-22-2023 Cognitive function Cognitive Sta tus Patient at Baseline [facility] Work Phone: Clinical Notes 02-02-2021 to 10-15-2023 Note Date & Type Note Facility 10-15-2023 Evaluation note Encounter Date Diagnosis Assessment Notes Oct, Severe obesity (BMI >= 40) (ICD-10 - E66.01) Consultation date 08-09-2023, weight (pounds): 343.8 Follow-up date 10-15-2023, weight (pounds): 344.7 -Discussed treatment options including lifestyle interventions, such as calorie reduction and physical activity, and use of medications as an adjunct to amplify adherence to healthy behavior change-Discussed benefits, risks and side effects of medication. After informed discussion, patient would like to proceedOrders:-Disco ntinue Victoza given poor weight loss response -Increase metformin to 1000 mg twice daily -Patient reporting hyperphagia and still eating junk food -Stressed importance of meeting with RD at least 1 time monthly -Avoid sugary sweet beverages-Prediabete s, schizoaffective disorder, ADHD, OCD, manic depression -Patient would like referral to bariatric surgery to discuss options. Resending [facility] referral -Follow up in clinic in 12 weeksThis note was created with voice recognition software. Please excuse errors in jacquard card cutter. Oct, Dietary surveillance and counseling (ICD-10 - Z71.3) Discussed in detail high-protein, high-fiber, low-fat nutrition plan favoring calorie deficit and lean tissue mass preservation.-Lives in snf -Strong recommendation to meet with RDs Oct, Exercise counseling (ICD-10 - Z71.89) Absolute HGS at time of consultation (pounds): 43.6 Absolute HGS at time of follow-up (pounds): 54.8 Discussed in detail exercise interventions to promote lean tissue mass preservation during calorie restriction. Oct, Prediabetes (ICD-10 - R73.03) Patient without side effect on metformin Increasing to 1000 mg twice daily. Patient agreeable Oct, Schizoaffective disorder (ICD-10 - F25.9) On pharmacotherapy 1 S. admissions Avoid phentermine Oct, Autism (ICD-10 - F84.0) Obesity gene panel revealing KSR2 heterozygous mutationNo indication for setmelanotideLikely contributing to obesity through reduced metabolic rate and hyperphagia [employer] Other 01-06-2024 Discharge summary Author Blade acuña [facility] October 06, 2023 6:43am Note Date/Time October 06, 2023 6: 43am [facility] [address] [place] [address] Discharge Summary Signed Patient: Cris Magana MR#: [id number] : 2000 Acct:[id number] Age/Sex: 23 / F Adm Date: 4 Loc: 1S Room: [address] [place] [address]: Blade Goel MD Copies to: BladeMD Joi Stevenson MD~ Providers Date of Discharge: 10/06/23 Discharging Provider: Blade Goel Primary Care Provider: Joi Prieto Discharge Diagnosis (1) Schizoaffective disorder: Final Diagnosis Final Discharge Diagnosis: Schizoaffective disorder Summary Hospital Course Hospital course: Ms. Magana is a 23 year old female with reported history of bipolar disorder who presents for inpatient admission due to worsening of suicidal ideation. Reportedly, she presented from [facility]. due to suicidal ideation andcommanding AH. Patient made superficial cut nobles to top of right wrist. Patient stated she used a piece of glass to cut the top of her right wrist. At the time of the interview, she presented as calm and cooperative. She complains of high anxiety and reports that her meds are not working as she continues to experience AH. Patient reports she is here because she tried to kill herself on October 02 by cutting her wrist with a piece of glass and doesn't know what triggered this. Denies SI/HI. Patient stated she sees shadows and hears voices. She said her grandmother is her guardian and advised her to goto the hospital. She reports not sleeping. She says her appetite is okay but she gained a lot of weight. She denies having negative thoughts of herself, such as hopelessness or worthlessness. She says she sees weird shadows at night , and the voices tell her to harm herself. She describes suicidal ideation with a plan to use a knife to kill herself. She denies HI. Past psych history: ADHD and bipolar disorder diagnosed as a child. No outpatient follow-up. Past hospitalizations: Multiple prior hospitalizations at [facility] in June. Past suicide attempts: Attempted suicide 2 times. Does not want to talk about methods. Family psych history: Mother with unspecified psychiatric illness Previous medications: Does not member previous medications. Alcohol and drug use: Reports having 2 alcoholic drinks per week. Denies tobacco or illicit drug use. Living: Lives in a snf in [place] with friends. Enjoys living there. Employment: Unemployed. Currently looking for employment. Relationships: Grandmother Patient reports she is feeling better. Buspar and Invega were both increased. She was refractable and less angry compared to the time prior to admission. Depression and anxiety are stabilizing gradually on the current medication regimen. Anxiety is mild in intensity with attempted utilization of coping skills. She denies SI/HI and verbalized the intent to notify staff if she has such thoughts. Her affect is brighter on exam. She continues to be compliant with prescribed medications and is visible within the unit milieu. She has beenworking on aftercare plans with dependency case manager. She agreed to continue the current medications regimen. Risks, benefits, and indications of medications were discussed. Her grandmother may pick her up at the time of discharge. She has not history of recent suicide attempts, presented as future oriented, participated in group activities, articulated needs appropriately, and displayedno self-harm behaviors. Imminent risk is low given factors noted above. Further inpatient hospitalization unlikely to mitigate chronic suicide risk, and pt agrees to f/u with outpatient psych care. We also discussed benefits of outpatient CBT and DBT to help with depression and reduce suicide risk. Overall, she has a positive mood and attitude towards life. Discharge disposition: snf Appearance: dressed casually Mental Status: mental status grossly normal Mood: Euthymic mood Affect: Normal affect Speech and Movement: speech and movement normal and speech clear Attitude: cooperative Thought Process: normal Thought Content: Denied hallucinations, no homicidality and no suicidality Insight: fair Judgment: fair Impulse control: fair Time spent discussing smoking cessation with patient: more than 10 minutes Condition Condition at Discharge: Stable Status at Discharge Functional status at discharge: independent ambulation Time Spent with Patient Time spent providing/coordinating discharge services (# min): 99 Diagnostic Studies Completed and Pending Studies Labs on day of discharge: 10/06/23 05:34: POC Glucose 99, POC Glucose Comment Glu2: cleaned meter 10/05/23 06:34: POC Glucose 114 Exam Physical Exam Vital Signs: Temp Pulse Resp BP Pulse Ox O2 Del Method 97.6 F 95 H 20 144/89 H 98 Room Air 10/05/23 23:30 10/05/23 23:30 10/05/23 23:30 10/05/23 23:30 10/05/23 23:30 10/05/23 23:30 Discharge Plan Discharge Plan Patient Disposition: Home Activity: No Activity Restriction Diet: Regular Additional Instructions: Important Contact Information You can call [facility] at [phone] any time day or night if you have emergent questions or question regarding discharge instructions. If at any time you are feeling an increase inyour psychiatric symptoms, call your physician or behavioral healthcare provider. If any time you have thoughts of harming yourself or others contact one of the following: Call (available 23/04) Crisis Text Line (available 23/04) text 4HOPE to [phone] [facility] Hope Line (available 8 a.m. Midnight) call [phone] ([phone]) Regular Diet No Activity Restrictions Instructions: Schizoaffective Disorder (DC), [facility] [place] Instructions Prescriptions: New buspirone 15 mg Tablet 15 mg PO TID 15 Days Qty: 45 0RF paliperidone 3 mg Tablet Extended Release 24 Hr 3 mg PO BID 15 Days Qty: 30 0RF ondansetron 4 mg Tablet,Disintegrating 4 mg PO Q8HR PRN (Reason: Nausea And Vomiting) 15 Days Qty: 15 1RF Continued metformin 500 mg Tablet 500 mg PO BID.WITH.MEALS loperamide 2 mg Capsule 2 mg PO Q6HR PRN (Reason: Loose Stool) Rx Instructions: 2 caps first loose stool then 1 cap each additional loose stool as needed [id number] levothyroxine [Synthroid] 50 mcg Tablet 50 mcg PO DAILY docusate sodium [Colace] 100 mg Capsule 100 mg PO DAILY medroxyprogesterone [Depo-Provera] 150 mg/mL Suspension 150 mg IM [id number] prazosin 2 mg capsule 2 mg PO QHS sertraline 100 mg tablet 200 mg PO DAILY 30 Days Qty: 60 0RF omeprazole 20 mg Capsule,Delayed Release(Dr/Ec) 20 mg PO DAILY 30 Days Qty: 30 0RF atorvastatin 10 mg tablet 10 mg PO HS lurasidone 120 mg tablet 120 mg PO DAILY Invega Sustenna 156 mg/mL syringe 156 mg IM Q28D Qty: 1 0RF acetaminophen 325 mg Capsule 650 mg PO Q4HR PRN (Reason: pain) Victoza 2-Tai 0.6 mg/0.1 mL (18 mg/3 mL) Pen Injector 1.8 mg SUBCUT DAILY Discontinued paliperidone 3 mg Tablet Extended Release 24hr 3 mg PO QHS 30 Days Qty: 30 0RF buspirone 10 mg Tablet 10 mg PO BID 30 Days Qty: 60 0RF Follow Up: Dr. Vincent Retana MD [Other] (Contact your PCP with any medical needs. ) Reno Christianson MD [Referring] - 10/17/23 10:30 am (Psychiatry: Sunday10/17/23 10:30am with Shaina Do. ) Documented By: Blade Goel MD [id number] Signed By: <Electronically signed by Blade Goel MD> 10/06/23 0643 [facility] Work Phone: 1(665) 378-559901-05-2024 Progress note Author Blade acuña [facility] October 05, 2023 8:13am Note Date/Time October 05, 2023 8: 13am [facility] [address] [place] [address] Psychiatry Progress Note Signed Patient: Cris Magana MR#: [id number] : 2000 Acct:[id number] Age/Sex: 23 / F Adm Date: 4 Loc: Room: [address] [place] [address] Type : ADM IN Attending Dr: Blade Goel MD Copies to: ~ Date of Service: 10/05/2023 Subjective Subjective Narrative: Ms. Magana said she is feeling good. She said she slept a good 6-8 hours and med adjustments. She agreed to continue the current medications regimen. Risks, benefits, and indications of medications were discussed. She said grandmother may pick her up on Sunday. She has not history of recent suicide attempts, presented as future oriented, participated in group activities, articulated needs appropriately, and displayedno self-harm behaviors. Imminent risk is low given factors noted above. Further inpatient hospitalization unlikely to mitigate chronic suicide risk, and pt agrees to f/u with outpatient psych care. We also discussed benefits of outpatient CBT and DBT to help with depression and reduce suicide risk. Overall, she has a positive mood and attitude towards life. Appearance: dressed casually Mental Status: mental status grossly normal Mood: Euthymic mood Affect: Normal affect Speech and Movement: speech and movement normal and speech clear Attitude: cooperative Thought Process: normal Thought Content: Denied hallucinations, no homicidality and no suicidality Insight: fair Judgment: fair Impulse control: fair Exam Physical Exam Vital Signs: Temp Pulse Resp BP Pulse Ox O2 Del Method 98.7 F 100 H 18 129/74 97 Room Air 10/05/23 07:27 10/05/23 07:27 10/05/23 07:27 10/05/23 07:27 10/05/23 07:27 10/05/23 07:27 Abnormal Involuntary Movement Dental Status Are dentures usually worn?: No Assessment/Plan Assessment/Plan (1) Schizoaffective disorder: Plan Patient is tolerating med adjustments and denied SI/HI. Monitor suicidal behaviors for safety of self (15-minute face check). Recommend attending groups and psychoeducation for building coping skills. Typical short- and long-term side effects of the proposed medication regimen, including contraindications and clinically significant interactions, were discussed with the patient. Side effects include but not limited to sedation, overdose, hypo or hypertension, rash, movement disorders (TD, EPS), weight gain, and appetite changes and advised the patient not to drive or drink while taking these meds. Patient should reach out to medical provider if any of these side effects occur. We also discussed risk of overdose with this current med regimen. Patient understands that it is impossible to guarantee an outcome withmedications. Patient indicates an understanding that benefits outweigh the risks. Targeted symptoms and signs, possible therapeutic benefit, side effect and riskswere discussed. No abnormal movements noted on exam. AIMS is Zero. Involve friends/family members if applicable to coordinate care and ensure appropriate outpatient appointments are scheduled prior to discharge. I have reviewed evaluations by other providers (ER notes, nurses and staff) Prognosis: Factors to be considered are the chronicity and severity of the symptoms and signs, associated comorbidity, and differential diagnosis-motivation to get in treatment, response to treatment, adherence to treatment recommendations, and using skills. The patient's verbal consent was provided and will seek permissionfrom guardian. Documented By: Blade Goel MD [id number] Signed By: <Electronically signed by Blade Goel MD> 10/05/23 0813 [facility] Work Phone: 1(127) 584-875701-04-2024 Progress note Author Blade acuña [facility] October 04, 2023 6:35am Note Date/Time October 04, 2023 6: 35am [facility] [address] [place] [address] Psychiatry Progress Note Signed Patient: Cris Magana MR#: [id number] : 2000 Acct:[id number] Age/Sex: 23 / F Adm Date: 4 Loc: Room: [address] [place] [address] Type : ADM IN Attending Dr: Blade Goel MD Copies to: ~ Date of Service: 10/04/2023 Subjective Subjective Narrative: Ms. Magana complains of high anxiety and reports that her meds are not workingas she continues to experience AH. Patient reports she is here because she triedto kill herself on October 02 by cutting her wrist with a piece of glass and doesn't know what triggered this. Denies SI/HI. Patient stated she sees shadows and hears voices. She tolerated increasing Buspar and Invega will be increased to 3 mg PO BID. Mental status: Grossly abnormal Appearance: Grossly normal Mood: Dysthymic Affect: Dysphoric Speech and movement: Speech clear and speech and movement normal. Attitude: Cooperative Thought process: Normal Thought content: Reports SI with a plan. Reports auditory and visual hallucinations. Denies HI. Insight: Poor Judgment: Poor Exam Physical Exam Vital Signs: Temp Pulse Resp BP Pulse Ox O2 Del Method 97.6 F 104 H 16 118/81 94 L Room Air 10/03/23 22:03 10/03/23 22:03 10/03/23 22:03 10/03/23 22:03 10/03/23 22:03 10/03/23 22:03 Objective Labs Labs: Abnormal Labs 10/03/23 10/03/23 10/03/23 06:57 06:57 06:57 Glucose 108 H Hemoglobin A1c 5.9 H Cholesterol 100 L 25-OH Vitamin D Total 24.5 L Prolactin 28.55 H Abnormal Involuntary Movement Dental Status Are dentures usually worn?: No Assessment/Plan Assessment/Plan (1) Schizoaffective disorder: Plan Increase 3 mg PO BID She tolerated increasing Buspar to 15 mg PO TID Monitor suicidal behaviors for safety of self (15-minute face check). Recommend attending groups and psychoeducation for building coping skills. Typical short- and long-term side effects of the proposed medication regimen, including contraindications and clinically significant interactions, were discussed with the patient. Side effects include but not limited to sedation, overdose, hypo or hypertension, rash, movement disorders (TD, EPS), weight gain, and appetite changes and advised the patient not to drive or drink while taking these meds. Patient should reach out to medical provider if any of these side effects occur. We also discussed risk of overdose with this current med regimen. Patient understands that it is impossible to guarantee an outcome withmedications. Patient indicates an understanding that benefits outweigh the risks. Targeted symptoms and signs, possible therapeutic benefit, side effect and riskswere discussed. No abnormal movements noted on exam. AIMS is Zero. Involve friends/family members if applicable to coordinate care and ensure appropriate outpatient appointments are scheduled prior to discharge. I have reviewed evaluations by other providers (ER notes, nurses and staff) Prognosis: Factors to be considered are the chronicity and severity of the symptoms and signs, associated comorbidity, and differential diagnosis-motivation to get in treatment, response to treatment, adherence to treatment recommendations, and using skills. The patient's verbal consent was provided and will seek permissionfrom guardian. Documented By: Blade Goel MD 4 0634 Signed By: <Electronically signed by Blade Goel MD> 10/04/23 0635 [facility] Work Phone: 1(436) 479-123101-03-2024 History and physical note Author Blade acuña [facility] October 03, 2023 6:32am Note Date/Time October 03, 2023 6: 25am [facility] EN[facility] [address] [place] [address] Psychiatry H&P Signed Patient: Cris aMgana MR#: [id number] : 2000 Acct:[id number] Age/Sex: 23 / F Adm Date: 4 Loc: 1S Room: [address] [place] [address] Type: ADM IN Attending Dr: Blade Goel MD Copies to: MD Joi Hackett MD~ Date of Service: 10/03/2023 HPI History of Present Illness History of present illness: Ms. Magana is a 23 year old female with reported history of bipolar disorder who presents for inpatient admission due to worsening of suicidal ideation. Reportedly, she presented from [facility]. due to suicidal ideation andcommanding AH. Patient made superficial cut nobles to top of right wrist. Patient stated she used a piece of glass to cut the top of her right wrist. At the time of the interview, she presented as calm and cooperative. She complains of high anxiety and reports that her meds are not working as she continues to experience AH. Patient reports she is here because she tried to kill herself on October 02 by cutting her wrist with a piece of glass and doesn't know what triggered this. Denies SI/HI. Patient stated she sees shadows and hears voices. She said her grandmother is her guardian and advised her to goto the hospital. She reports not sleeping. She says her appetite is okay but she gained a lot of weight. She denies having negative thoughts of herself, such as hopelessness or worthlessness. She says she sees weird shadows at night , and the voices tell her to harm herself. She describes suicidal ideation with a plan to use a knife to kill herself. She denies HI. Past psych history: ADHD and bipolar disorder diagnosed as a child. No outpatient follow-up. Past hospitalizations: Multiple prior hospitalizations at [facility] in June. Past suicide attempts: Attempted suicide 2 times. Does not want to talk about methods. Family psych history: Mother with unspecified psychiatric illness Previous medications: Does not member previous medications. Alcohol and drug use: Reports having 2 alcoholic drinks per week. Denies tobacco or illicit drug use. Living: Lives in a snf in [place] with friends. Enjoys living there. Employment: Unemployed. Currently looking for employment. Relationships: Grandmother Mental status: Grossly abnormal Appearance: Grossly normal Mood: Dysthymic Affect: Dysphoric Speech and movement: Speech clear and speech and movement normal. Attitude: Cooperative Thought process: Normal Thought content: Reports SI with a plan. Reports auditory and visual hallucinations. Denies HI. Insight: Poor Judgment: Poor Review of systems Constitutional: Denies fatigue, malaise. Neuro: Denies dizziness/lightheadedness, TBI, seizure, memory loss, numbness/tingling in extremities HEENT:Denies vision changes. Pulmonary: Denies SOB, dyspnea, cough, wheezing. Cardiac: Denies chest pain/pressure, edema, palpitations. GI: Denies heartburn, N/V, and diarrhea : Denies hematuria Physical exam General: Not in any acute distress Skin: Intact HEENT: Head atraumatic, face symmetrical Pulm: Breathing normally without excessive effort Cardio: Regular rate and rhythm Abdomen: Normal inspection Musculoskeletal: Moves all extremities, normal strength all extremities. Neuro: Patient alert, oriented x3. Gait normal. CN I: Sense of smell intact CN II: Visual raines intact CN III, IV, : EOM intact, no nystagmus. CN V: Sensation intact to light touch. CN VII: Raises eyebrows, smile/frown, puff out cheeks symmetrically. CN VIII: Hearing intact bilaterally. CN IX, X: Voice normal, soft palate elevation normal, symmetrical. CN XI: Shoulder shrug strong, equal bilaterally. CN XII: Tongue protrusion midline [facility] Medical History (Updated 06/18/23 @ 14:54 by Arben Webber MD) ADHD Adult hypothyroidism Autism Diabetes PTSD (post-traumatic stress disorder) Recurrent UTI Surgical History No pertinent past surgical history Family History Mother Diabetes mellitus, type 2 Social History Smoking Status: Never smoker Substance Use Type: None Social History Comments: [facility] Meds Medications and Allergies Allergies bee venom protein (honey bee) Allergy (Verified 06/14/19 00:59) Unknown Reaction Home Medications docusate sodium 100 mg capsule (Colace) 100 mg PO DAILY 06/02/19 [History Confirmed 10/03/23] levothyroxine 50 mcg tablet (Synthroid) 50 mcg PO DAILY 06/02/19 [History Confirmed 10/03/23] loperamide 2 mg capsule 2 mg PO Q6HR PRN Loose Stool 06/02/19 [History Confirmed 10/03/23] medroxyprogesterone 150 mg/mL intramuscular suspension (Depo-Provera) 150 mg IM [id number] 06/02/19 [History Confirmed 10/03/23] metformin 500 mg tablet 500 mg PO BID.WITH.MEALS 06/02/19 [History Confirmed 10/03/23] omeprazole 20 mg capsule,delayed release 20 mg PO DAILY 30 days #30 caps 06/23/19 [Rx Confirmed 10/03/23] paliperidone 3 mg tablet,extended release 24 hr 3 mg PO QHS 30 days #30 tabs 06/23/19 [Rx Confirmed 10/03/23] atorvastatin 10 mg tablet 10 mg PO HS 06/18/23 [History Confirmed 10/03/23] lurasidone 120 mg tablet 120 mg PO DAILY 06/18/23 [History Confirmed 10/03/23] buspirone 10 mg tablet 10 mg PO BID 30 days #60 tabs 06/22/23 [Rx Confirmed 10/03/23] paliperidone palmitate 156 mg/mL intramuscular syringe (Invega Sustenna) 156 mg IM Q28D #1 mL 06/22/23 [Rx Confirmed 10/03/23] prazosin 2 mg capsule 2 mg PO QHS 07/12/23 [History Confirmed 10/03/23] sertraline 100 mg tablet 200 mg PO DAILY 30 days #60 tabs 07/16/23 [Rx Confirmed 10/03/23] acetaminophen 325 mg capsule 650 mg PO Q4HR PRN pain 10/03/23 [History Confirmed 10/03/23] liraglutide 0.6 mg/0.1 mL (18 mg/3 mL) subcutaneous pen injector (Victoza 2- Tai)1.8 mg subcut DAILY 10/03/23 [History Confirmed 10/03/23] Exam Physical Exam Vital Signs: Temp Resp BP Pulse Ox O2 Del Method 97.5 F L 16 103/73 97 Room Air 10/03/23 00:30 10/03/23 00:30 10/03/23 00:30 10/03/23 00:30 10/03/23 00:30 Abnormal Involuntary Movement Dental Status Are dentures usually worn?: No Assessment/Plan (1) Schizoaffective disorder: Plan Admit to 1S for management of depression and to ensure safety of self due to SI. Continue current treatment and verify most recent injection date. Recommend increasing Buspar to 15 mg PO TID after obtaining guardian's permission Monitor suicidal behaviors for safety of self (15-minute face check). Recommend attending groups and psychoeducation for building coping skills. Typical short- and long-term side effects of the proposed medication regimen, including contraindications and clinically significant interactions, were discussed with the patient. Side effects include but not limited to sedation, overdose, hypo or hypertension, rash, movement disorders (TD, EPS), weight gain, and appetite changes and advised the patient not to drive or drink while taking these meds. Patient should reach out to medical provider if any of these side effects occur. We also discussed risk of overdose with this current med regimen. Patient understands that it is impossible to guarantee an outcome withmedications. Patient indicates an understanding that benefits outweigh the risks. Targeted symptoms and signs, possible therapeutic benefit, side effect and riskswere discussed. No abnormal movements noted on exam. AIMS is Zero. Involve friends/family members if applicable to coordinate care and ensure appropriate outpatient appointments are scheduled prior to discharge. I have reviewed evaluations by other providers (ER notes, nurses and staff) Prognosis: Factors to be considered are the chronicity and severity of the symptoms and signs, associated comorbidity, and differential diagnosis-motivation to get in treatment, response to treatment, adherence to treatment recommendations, and using skills. The patient's verbal consent was provided and will seek permissionfrom guardian. Documented By: Blade Goel MD 4 0625 Signed By: <Electronically signed by Blade Goel MD> 10/03/23 0632 [facility] Work Phone: 1(841) 404-150812-12-2023 Evaluation note* Encounter Date Diagnosis Assessment Notes Treatment Notes Treatment Clinical Notes Aug, Encounter for pharmacogenetic testing (ICD-10 - Z13.79) Patient presented today for uncovering rare obesity pharmacogenetics test collection per the request of Dr. Santi Valenzuela. Patient signed all required paperwork and consents for buccal swab collection and testing. Patient confirms they have not eaten, drank, chewed gum or smoked in the last 30 minutes. Buccal swab was collected and packaged according construction field engineer instructions. Sample to be shipped to [facility]. Patient has no questions at this time. Seen by: Patti Mcnamara PharmD Time spent with patient: 10 minutes. [facility] Other 11-09-2023 Evaluation note* Encounter Date Diagnosis [...] covered through Medicaid -Accompanied by grandmother and account group supervisor -Avoid sugary sweet beverages-Prediabete s, schizoaffective disorder, ADHD, OCD, manic depression -Patient would like referral to bariatric surgery to discuss options -Referral to [facility] bariatric surgery via email -Follow up in clinic in 10 weeksThis note was created with voice recognition software. Please excuse errors in jacquard card cutter. Aug, Dietary surveillance and counseling (ICD-10 - [...] to mitigate hyperinsulinemia-Has access to gym and snf Aug, Prediabetes (ICD-10 - R73.03) On metformin Aug, Schizoaffective disorder (ICD-10 - F25.9) On pharmacotherapy 1 S. admissions Avoid phentermine Aug, Autism (ICD-10 - F84.0) Can consider genetic obesity panel next appointment [facility] Other 09-21-2023 Progress note Author Arben Webber [facility] June 21, 2023 11:38am Note Date/Time June 21, 2023 11:38am [facility] EN[facility] [address] [place] [address] Psychiatry Progress Note Signed Patient: Cris Magana MR#: [id number] : 2000 Acct:[id number] Age/Sex: 23 / F Adm Date: 3 Loc: 1S Room: [address] [place] [address] Type : ADM IN Attending Dr: Arben [...] signed by Arben Webber MD> 06/21/23 1138 [facility] Work Phone: 1(237) 863-360609-20-2023 Progress note Author Arben Webber [facility] June 20, 2023 12:53pm Note Date/Time June 20, 2023 12:53pm [facility] ENTER [address] [place] [address] Psychiatry Progress Note Signed Patient: Cris Magana MR#: [id number] : 2000 Acct:[id number] Age/Sex: 23 / F Adm Date: 3 Loc: Room: [address] [place] [address] Type : ADM IN Attending Dr: Arben [...] By: <Electronically signed by Arben Webber MD> 06/20/23 1253 [facility] Work Phone: 1(179) 194-128609-19-2023 Progress note Author Arben Webber [facility] June 19, 2023 1:56pm Note Date/Time June 19, 2023 1:56pm [facility] EN[facility] [address] [place] [address] Psychiatry Progress Note Signed Patient: Cris Magana MR#: [id number] : 2000 Acct:[id number] Age/Sex: 23 / F Adm Date: 3 Loc: Room: 7A9999-4 Type : ADM IN Attending Dr: Arebn Webber MD Copies to: ~ Date of Service: 06/19/2023 Subjective Subjective Narrative: Ms. Magana reported that she still feels awful. She reported that she still having some suicidal thoughts. She reported that she is having a lot of anxietyand does not want to go back to the snf. She reported that people are mean to [...] alternatives explained Documented By: Arben Webber MD 06/19/233 Signed By: <Electronically signed by Arben Webber MD> 06/19/23 0282 [facility] Work Phone: 1(558) 901-313709-18-2023 History and physical note Author Arben Webber [facility] June 18, 2023 2:56pm Note Date/Time June 18, 2023 2:55pm [facility] EN[facility] [address] [place] [address] Psychiatry H&P Signed Patient: Cris Magana MR#: [id number] : 2000 Acct:[id number] Age/Sex: 23 / F Adm Date: 3 Loc: Room: [address] [place] [address] Type: ADM IN Attending Dr: Arben Webber [...] states that she came back to the snf and had suicidal thoughts and wanted to [...] use: Denied any significant issues Living: In snf Employment: Unemployed Review of symptoms: Constitutional: Denies [...] homicidality, reported suicidality Insight: fair Judgment: fair [facility] Medical History (Updated 06/18/23 @ 14:54 by Arben Webber MD) ADHD Adult hypothyroidism Autism Diabetes PTSD (post-traumatic stress disorder) Recurrent UTI Surgical History No pertinent past surgical history Family History Mother Diabetes mellitus, type 2 Social History Smoking Status: Never smoker Substance Use Type: None Social History Comments: Intermediate Meds Medications and Allergies Allergies bee venom [...] mg/mL intramuscular suspension (Depo-Provera) 150 mg IM [id number] 06/02/19 [History Confirmed 06/18/23] metformin 500 mg [...] explained Documented By: Arben Webber MD 06/18/23 145 Signed By: <Electronically signed by Arben Webber MD> 06/18/23 1456 [facility] Work Phone: 1(868) 176-834007-06-2022 History of Present illness Narrative* Nestor Jennings DMD, MD - 04/05/2022 8:58 AM EDT ORAL SURGERY PROCEDURE ROOM NOTE [facility] Product(s): Routine extraction teeth # 19, # 30 and # 32 and Surgical extraction teeth # 17 PMH: Reviewed, no change. Antibiotic prophylaxis indicated/taken: no Discussed risks, benefits, and alternatives of treatment. All of the patient s questions were answered, and informed consent was obtained: yes Pre-op Diagnosis: Chronic dental caries extending to pulp [507733] Caries PROCEDURE TIME OUT CHECK LIST 1. [...] blood loss: Minimal (<5 ml) Disposition: Home Chistophlindsay Jennings DMD, MD Associated attestation - Hugo [...] note were not included. documented in this [id number] Instructions* Patient Instructions* Nestor Jennings DMD, MD [...] done to speak with an oral surgeon. [facility] [phone]. HELPING THE HEALING PROCESS AND STOPPING THE [...] any questions or concerns please contact us: [facility] . Ask for the behavioral intervention specialist thermostatic controls supervisor (after hours). nutritionists Clinic Hours: Mon-Fri 8:30 am to 4:30 pm. documented in this [id number] Instructions* Patient Instructions* Nestor Jennings DMD, MD [...] done to speak with an oral surgeon. [facility] [phone]. HELPING THE HEALING PROCESS AND STOPPING THE [...] any questions or concerns please contact us: [facility] . Ask for the behavioral intervention specialist thermostatic controls supervisor (after hours). nutritionists Clinic Hours: Mon-Fri 8:30 am to 4:30 pm. documented in this [id number] History of Present illness Narrative* Henna Mcgee - 04/05/2022 8:45 AM EDT Images from the original note were not included. documented in this [id number] Instructions* Patient Instructions* Magali Herron DDS - 02/01/2022 3:57 PM EDT Dental extraction [...] done to speak with an oral surgeon. [facility] [phone]. HELPING THE HEALING PROCESS AND STOPPING THE [...] any questions or concerns please contact us: [facility] . Ask for the behavioral intervention specialist thermostatic controls supervisor (after hours). nutritionists Clinic Hours: Mon-Fri 8:30 am to 4:30 pm. documented in this [id number] History of Present illness Narrative* Magali Herron DDS - 02/01/2022 3:53 PM EDT [facility] PATIENT VISIT CHIEF COMPLAINT: I need [...] DIAGNOSIS: Chronic dental caries extending to pulp [[id number]] TREATMENT: Exam and goyal PLAN: Extraction of [...] Hugo Pearce DMD, MD documented in this [id number] NotePatient Outreach ([facility]) CRIS MAGANA ([id number]) 2000 F Date Time Provider Department 02/02/21 REBA SORIA During your visit today, we recorded the following information about you: Reba Soria MA 02/02/2021 10:13 AM Signed POPULATION HEALTH NAVIGATION OUTREACH Action/FYI Provider Offboarding Spoke to patient - patient reports transferring care to [facility], under the care of Heath Ellis CNP Updated PCP field Contact made with patient or family member? YES Pt identified by name and : YES Outreach Outcome/Action Spoke to patient or caregiver: PCP confirmed / updated Reason for Outreach Attribution: Provider Off-boarding Payer: Payor: [place] / Plan: [place] / Product Type: Medicaid / Care [...] future healthcare decisions with a power of employment law attorney, living will, or advance directives? N/A [...] *12/18/2017 Encounter Status:Closed by REBA SORIA on 02/02/21[facility] 02-02-2021 NoteHNO ID: [id number] Author: Reba Soria MA Service: ? Author Type: Build Manager Type: Progress Notes Filed: 02/02/2021 10:13 AM Note Text: POPULATION HEALTH NAVIGATION OUTREACH Action/ Provider Offboarding Spoke to patient - patient reports transferring care to [facility], under the care of Heath Ellis CNP Updated PCP field Contact made with patient or family member? YES Pt identified by name and : YES Outreach Outcome/Action Spoke to patient or caregiver: PCP confirmed / updated Reason for Outreach Attribution: Provider Off-boarding Payer: Payor: [place] / Plan: [place] / Product Type: Medicaid / Care [...] future healthcare decisions with a power of employment law attorney, living will, or advance directives? N/A Referrals: N/A Message Sent to Practice: NO Navigation Signature: Reba Soria MA February 02, 2021 10:05 [facility] summary Author Arben Webber [facility] June 22, 2023 11:35am Note Date/Time June 22, 2023 11:34am [facility] EN[facility] [address] [place] [address] Discharge Summary Signed Patient: Cris Magana MR#: [id number] : 2000 Acct:[id number] Age/Sex: 23 / F Adm Date: 3 Loc: 1S Room: 7P4725-[address]: Arben Webber MD Copies to: [...] states that she came back to the snf and had suicidal thoughts and wanted to [...] use: Denied any significant issues Living: In snf Employment: Unemployed Patient is continued on home [...] Instructions: Important Contact Information You can call [facility] at [phone] any time day or night if you [...] Text Line (available 23/04) text 4HOPE to [phone] [facility] Hope Line (available 8 a.m. Midnight) call [phone] ([phone]) Invega Sustenna 234mg IM given on 06/18/23 Instructions: Schizoaffective Disorder (DC), [facility] [place] Instructions Prescriptions: New buspirone [...] cap each additional loose stool as needed [id number] levothyroxine [Synthroid] 50 mcg Tablet 50 mcg PO DAILY docusate sodium [Colace] 100 mg Capsule 100 mg PO DAILY medroxyprogesterone [Depo-Provera] 150 mg/mL Suspension 150 mg IM [id number] Rx Instructions: due 08/10/23 prazosin 1 mg [...] 30 Days Qty: 30 0RF [facility] Joi Prieto MD [Primary Care Provider] - (Please follow up with your primary care provider for any medical concerns. ) Reno Christianson MD [Referring] - (This office is closed on and your appointment was unable to be made. Please call to make a discharge follow up appt as soon as possible. ) Documented By: Arben Webber MD 06/22/23 113 Signed By: <Electronically signed by Arben Webber MD> 06/22/23 1135 [facility] Work Phone: Evaluation note* Diagnosis Chronic dental caries extending to pulp- Primary Dental caries extending into pulp Body mass index (BMI) 45.0-49.9, adult (HCC) [facility] Diagnosis Chronic dental caries extending to pulp- Primary Dental caries extending into pulp [facility]* Diagnosis Chronic dental caries extending to pulp- Primary Dental caries extending into pulp [facility]* Diagnosis Screen for STD (sexually transmitted disease) Screening examination for venereal disease documented in this encounter [facility] Work Phone: evaluation note* Diagnosis Onset Date Resolution Status Autism acute Schizoaffective disorder acu te [facility] Work Phone: Evaluation noteNo [facility]Del[facility] Other Evaluation note* Diagnosis Onset Date Resolution Status Autism acute Schizoaffective disorder acu te Schizoaffective disorder acu te [facility] Work Phone: Hisvgoi general Narrative - Reported* Type Description Date Medical History Major depression with psychotic features Medical History autism Medical History auspergers Medical History urinary tract obstruction Medical History PTSD Medical History ADHD Medical History Morbid obesity Medical History Mild DD Medical History Constipation Medical History Frequent UTI Medical History NIDDM Medical History Hypothyroidism Medical History Hyperlipidemia Hospitalization History SUICIDAL IDEATION, Multi ple stays MOMENTFACE SRO [facility] Other Hisyshm general Narrative - Reported* Type Description Date Medical History Major depression with psychotic features Medical History autism Medical History auspergers Medical History urinary tract obstruction Medical History PTSD Medical History ADHD Medical History Morbid obesity Medical History Mild DD Medical History Constipation Medical History Frequent UTI Medical History NIDDM Medical History Hypothyroidism Medical History Hyperlipidemia Hospitalization History SUICIDAL IDEATION, Multi ple stays Hospitalization History Suicide attempt 10/2023 MOMENTFACE SRO [facility] Other Hospital Discharge instructions Additional Instructions Important Contact Information You can call [facility] at [phone] any time day or night if you [...] Text Line (available 23/04) text 4HOPE to [phone] [facility] Hope Line (available 8 a.m. Midnight) call [phone] ([phone]) Invega Sustenna 234mg IM given on 06/18/23, Invega Sustenna 156mg IM given on 06/21/23*[facility] Work Phone: Hospital Discharge instructions Additional Instructions Important Contact Information You can call [facility] at [phone] any time day or night if you have emergent questions or question regarding discharge instructions. If at any time you are feeling an increase in your psychiatric symptoms, call your physician or behavioral healthcare provider. If any time you have thoughts of harming yourself or others contact one of the following: Call [phone] (available 23/04) Crisis Text Line (available 23/04) text 4HOPE to [phone] [facility] Hope Line (available 8 a.m. 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 Advance Directives and Living Will Power of School Year Nanny Latest Code Status on File Code Status Date Activated Date Inactivated Comments Full Code 07/16/2017 3:56 AM 07/24/2017 1:13 PM Full Code 05/14/2016 9:13 AM 05/25/2016 3:53 PM Documents on File Type Date Recorded 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 ACP-Advance Directive ACP-Guardianship Document 10/07/2019 10:27 AM Legal Guardianship ACP-Power of School Year Nanny Documents on File Type Date Recorded 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 ACP-Advance Directive ACP-Power of School Year Nanny ACP-Guardianship Document 10/07/2019 10:27 AM Legal Guardianship Documents on File Type Date Recorded 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 ACP-Guardianship Document 10/07/2019 10:27 AM Legal Guardianship Latest Code Status on File Code Status Date Activated Date Inactivated Comments Full Code 07/16/2017 3:56 AM 07/24/2017 1:13 PM Code Status History Code Status Date Activated Date Inactivated Comments Full Code 05/14/2016 9:13 AM 05/25/2016 3:53 PM Advance Directive Response Recorded Date/ Time Advance Directives No August 2:51pm Advance Directive Response Recorded Date/ Time Advance Directives No August 1:51pm Chief Complaint and Reason for Visit Chief Complaint Bipolar Reason for Visit Autism Schizoaffective disorder Chief Complaint Bipolar Obesity Bypolar Reason for Visit Autism Schizoaffective disorder Schizoaffective disorder Additional Source Comments INFORMATION SOURCE (unrecogn ized section and content) DATE CREATED AUTHOR 03/19/2018 [facility] DATE CREATED AUTHOR AUTHOR'S ORGANIZ ATION 03/22/2018 [facility] DATE CREATED AUTHOR AUTHOR'S ORGANIZ ATION 03/22/2018 [facility] DATE CREATED AUTHOR AUTHOR'S ORGANIZ ATION 03/26/2018 [facility] DATE CREATED AUTHOR AUTHOR'S ORGANIZ ATION 03/27/2018 [facility] DATE CREATED AUTHOR AUTHOR'S ORGANIZ ATION 07/12/2020 [facility] DATE CREATED AUTHOR AUTHOR'S ORGANIZ ATION 11/23/2021 [facility] DATE CREATED AUTHOR AUTHOR'S ORGANIZ ATION 04/11/2022 [facility] DATE CREATED AUTHOR AUTHOR'S ORGANIZ ATION 11/05/2023 [facility] DATE CREATED AUTHOR AUTHOR'S ORGANIZ ATION 11/09/2023 [facility] Care Teams (unrecognized sec tion and content) Icebox Man Relationship Specialty Start Date End Date Joi Prieto MD [address] [place] [id number] PCP - General Internal Medicine 03/16/21 Icebox Man Relationship Specialty Start Date End Date Hugo Pearce DMD, MD [address] [place] [id number] Physician Oral & Maxillofacial Surgery 03/04/22 Icebox Man Relationship Specialty Start Date End Date Hugo Pearce DMD, MD [address] [place] [address] Physician Oral & Maxillofacial Surgery 03/04/22 Icebox Man Relationship Specialty Start Date End Date Haeth Ellis, FINE ARTS INSTRUCTOR - COLOR MATCHER [address] [place] [address] PCP - General Nurse Practitioner 01/03/22 Icebox Man Relationship Specialty Start Date End Date Heath Ellis FINE ARTS INSTRUCTOR - COLOR MATCHER [address] [place] [address] PCP - General Nurse Practitioner 01/03/22 Icebox Man Relationship Specialty Start Date End Date Heath Ellis FINE ARTS INSTRUCTOR - COLOR MATCHER [address] [place] [address] PCP - General Nurse Practitioner 01/03/22 Icebox Man Relationship Specialty Start Date End Date Heath Ellis FINE ARTS INSTRUCTOR - COLOR MATCHER [address] [place] [address] PCP - General Nurse Practitioner 01/03/22 Icebox Man Relationship Specialty Start Date End Date Heath Ellis, FINE ARTS INSTRUCTOR - COLOR MATCHER [address] [place] [address] PCP - General Nurse Practitioner 01/03/22 Team Status: Active Member Role Status Dates Joi Prieto MD Primary Care Provider Acti ve Team Status: Inactive Member Role Status Dates Joi Prieto MD Primary Care Provider Acti ve Arben Webber MD Admit Provider, Attending Provider Active Team Status: Inactive Member Role Status Millicent Prieto MD Primary Care Provider Cassie Goel MD Admit Provider Active Arben Webber MD Attending Provider Active Team Status: Active Member Role Status Dates Joi Prieto MD Primary Care Provider Actberta Goel MD Attending Provider Active Team Status: Inactive Member Role Status Millicent Prieto MD Primary Care Provider Cassie Goel MD Admit Provider, Attending Andrei ferrer Active Reason for Visit (unrecogniz ed section and content) Reason Comments New patient, to establish relationship Specialty Diagnoses / Procedures Referred By Dirk larson Referred To Contact Oral Surgery Diagnoses Dental caries EXT 1,2,16,17,19,30,32 UNDER SEDATION Genesis Qureshi DDS [address] [place] [address] Oral [address] [place] [id number] Referral ID Status Reason Start Date Expiration Date Visits Requested Visits Authorized [id number] Authorized Transfer of Care-[facility] 09/07/2021 03/06/2022 3 3 FOR RECORDS PERTAINING [...] BE BASED ON THE PRIMARY CLINICAL RECORDS. [facility] [employer] provides no warranty or guarantee of the accuracy or completeness of information in this document.
[2023-11-14] MEDS: ONDANSETRON PF 4 MG/2 ML VIAL IV (19:46)
--- NOTE | 2023-11-14 19:53 | PC.NURSE ---
Spoke to Perri chicas [facility] hotline Facesheet faxed, will fax over results when available Per [facility], they will call us back within the hour to start her assesment
[2023-11-14 20:32] LABS: Basophils Absolute Auto 0.1 10^3/uL (0.0-0.1); Basophils Percent Auto 0.4 % (0.2-2.0); Eosinophils Absolute Auto 0.2 10^3/uL (0.0-0.7); Eosinophils Percent Auto 1.9 % (0.9-7.0); Hematocrit 42.2 % (36.0-48.0); Hemoglobin 13.9 g/dL (12.0-16.0); Immature Granulocytes Abs Auto 0.03 10^3/uL (0.00-0.03); Immature Granulocytes Pct Auto 0.3 % (0.0-0.5); Lymphocytes Absolute Auto 4.3 10^3/uL (1.2-3.8); Lymphocytes Percent Auto 37.6 % (20.5-60.0); Mean Corpuscular HGB Conc 32.9 g/dL (29.9-35.2); Mean Corpuscular Hemoglobin 27.5 pg (26.7-34.0); Mean Corpuscular Volume 83.6 fL (81.0-99.0); Mean Platelet Volume 10.2 fL (9.5-13.5); Monocytes Absolute Auto 0.6 10^3/uL (0.3-0.8); Monocytes Percent Auto 5.7 % (1.7-12.0); Neutrophils Absolute Auto 6.1 10^3/uL (1.4-6.5); Neutrophils Percent Auto 54.1 % (43.0-75.0); Platelet Count 260 10^3/uL (150-450); Red Blood Count 5.05 10^6/uL (4.20-5.40); Red Cell Distribution Width 13.3 % (11.0-15.0); White Blood Count 11.3 10^3/uL (4.0-11.0)
[2023-11-14 20:38] LABS: Bilirubin Urine NEGATIVE (NEGATIVE); Blood Urine NEGATIVE (NEGATIVE); Clarity Urine CLEAR (CLEAR); Color Urine YELLOW (YELLOW); Glucose Urine UA NEGATIVE (NEGATIVE); Ketones Urine NEGATIVE (NEGATIVE); Leukocyte Esterase Urine NEGATIVE (NEGATIVE); Nitrite Urine NEGATIVE (NEGATIVE); Protein Urine NEGATIVE (NEG/TRACE); Specific Gravity Urine >=1.030 (1.005-1.025); Urobilinogen Urine 0.2 EU/dL (0.2-1.0); pH Urine 6.5 (5.0-9.0)
[2023-11-14 20:44] LABS: Urine Microscopic Indicated NO
[2023-11-14 20:45] LABS: Amphetamine Screen Urine NEGATIVE (NEGATIVE); Barbiturates Screen Urine NEGATIVE (NEGATIVE); Benzodiazepines Screen Urine NEGATIVE (NEGATIVE); Buprenorphine Screen Urine NEGATIVE (NEGATIVE); Cannabinoid Screen Urine NEGATIVE (NEGATIVE); Cocaine Screen Urine NEGATIVE (NEGATIVE); Methadone Screen Urine NEGATIVE (NEGATIVE); Methamphetamines Screen Urine NEGATIVE (NEGATIVE); Opiate Screen Urine NEGATIVE (NEGATIVE); Oxycodone Screen Urine NEGATIVE (NEGATIVE); Phencyclidine Screen Urine NEGATIVE (NEGATIVE); Tricyclic Antidepressant Urine NEGATIVE (NEGATIVE)
[2023-11-14 20:57] LABS: HCG Qualitative NEGATIVE (NEGATIVE)
[2023-11-14 21:11] LABS: Alanine Aminotransferase 35 U/L (14-59); Albumin Globulin Ratio 0.8; Albumin Level 3.5 g/dL (3.4-5.0); Alkaline Phosphatase 76 U/L (46-116); Anion Gap 12.7; Aspartate Amino Transferase 16 U/L (15-37); BUN Creatinine Ratio 14.9; Bilirubin Total 0.2 mg/dL (0.2-1.0); Calcium 8.7 mg/dL (8.5-10.1); Chloride 107 mmol/L (98-107); Estimated GFR (African America >60 (>=60); Estimated GFR (Non-African Ame >60 (>=60); Globulin 4.2 g/dL; Glucose 120 mg/dL (74-106); Potassium 3.7 mmol/L (3.5-5.1); Salicylate <2.8 mg/dL (<=19.9); Sodium 143 mmol/L (136-145); Total Protein 7.7 g/dL (6.4-8.2)
[2023-11-14 21:13] LABS: Acetaminophen <2.0 ug/mL (10.0-30.0); Ethanol <3 mg/dL
[2023-11-14 21:46] VITALS: BP 141/84; PULSE 84; RESP 16; O2SAT 98
[2023-11-14 21:58] LABS: SARS-CoV-2 Ag NEGATIVE (NEGATIVE)
[2023-11-14 22:41] VITALS: BP 126/96; PULSE 84; RESP 18; O2SAT 97
== END 2023-11-14 23:10 | disposition home or self-care (01) ==
PROVIDERS: Physician Assistant; Emergency Provider Emergency Medicine
DX: R45.851 Suicidal ideations (principal); F32.A Depression, unspecified; F84.0 Autistic disorder; F29 Unspecified psychosis not due to a substance or known physiological condition; F79 Unspecified intellectual disabilities; Z79.899 Other long term (current) drug therapy; Z79.84 Long term (current) use of oral hypoglycemic drugs; Z79.890 Hormone replacement therapy; E66.9 Obesity, unspecified; Z20.822 Contact with and (suspected) exposure to COVID-19; Z68.43 Body mass index [BMI] 50.0-59.9, adult
CPT/HCPCS: 36415; 80053; 80179; 80307; 80320; 80329; 81003; 83690; 84703; 85025; 87811; 93005; 96374; 99285; J2405

== ENCOUNTER 2023-11-23 12:55 | Emergency (ER) | payer MEDICAID, SELFPAY ==
[2023-11-23 13:01] VITALS: BP 146/92; PULSE 117; RESP 18; TEMP 36.6; O2SAT 97; BMI 41.6
--- NOTE | 2023-11-23 13:08 | ECG_ITS ---
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
[2023-11-23 14:06] LABS: Bilirubin Urine NEGATIVE (NEGATIVE); Blood Urine NEGATIVE (NEGATIVE); Clarity Urine CLEAR (CLEAR); Color Urine LT. YELLOW (YELLOW); Glucose Urine UA NEGATIVE (NEGATIVE); Ketones Urine NEGATIVE (NEGATIVE); Leukocyte Esterase Urine NEGATIVE (NEGATIVE); Nitrite Urine NEGATIVE (NEGATIVE); Protein Urine NEGATIVE (NEG/TRACE); Urobilinogen Urine 0.2 EU/dL (0.2-1.0)
[2023-11-23 14:07] LABS: Urine Microscopic Indicated NO
[2023-11-23 14:08] LABS: Basophils Percent Auto 0.3 % (0.2-2.0); Eosinophils Absolute Auto 0.3 10^3/uL (0.0-0.7); Eosinophils Percent Auto 2.9 % (0.9-7.0); Hematocrit 40.7 % (36.0-48.0); Hemoglobin 13.5 g/dL (12.0-16.0); Immature Granulocytes Abs Auto 0.03 10^3/uL (0.00-0.03); Immature Granulocytes Pct Auto 0.3 % (0.0-0.5); Lymphocytes Absolute Auto 3.7 10^3/uL (1.2-3.8); Mean Corpuscular HGB Conc 33.2 g/dL (29.9-35.2); Mean Corpuscular Hemoglobin 27.5 pg (26.7-34.0); Mean Corpuscular Volume 82.9 fL (81.0-99.0); Mean Platelet Volume 9.7 fL (9.5-13.5); Monocytes Absolute Auto 0.6 10^3/uL (0.3-0.8); Monocytes Percent Auto 5.9 % (1.7-12.0); Neutrophils Absolute Auto 4.9 10^3/uL (1.4-6.5); Neutrophils Percent Auto 51.6 % (43.0-75.0); Platelet Count 246 10^3/uL (150-450); Red Blood Count 4.91 10^6/uL (4.20-5.40); Red Cell Distribution Width 13.2 % (11.0-15.0); White Blood Count 9.4 10^3/uL (4.0-11.0)
[2023-11-23 14:16] LABS: Amphetamine Screen Urine NEGATIVE (NEGATIVE); Barbiturates Screen Urine NEGATIVE (NEGATIVE); Benzodiazepines Screen Urine NEGATIVE (NEGATIVE); Buprenorphine Screen Urine NEGATIVE (NEGATIVE); Cannabinoid Screen Urine NEGATIVE (NEGATIVE); Cocaine Screen Urine NEGATIVE (NEGATIVE); Methadone Screen Urine NEGATIVE (NEGATIVE); Methamphetamines Screen Urine NEGATIVE (NEGATIVE); Opiate Screen Urine NEGATIVE (NEGATIVE); Oxycodone Screen Urine NEGATIVE (NEGATIVE); Phencyclidine Screen Urine NEGATIVE (NEGATIVE); Tricyclic Antidepressant Urine NEGATIVE (NEGATIVE)
[2023-11-23 14:18] LABS: Alanine Aminotransferase 41 U/L (14-59); Albumin Globulin Ratio 0.8; Albumin Level 3.3 g/dL (3.4-5.0); Alkaline Phosphatase 78 U/L (46-116); Anion Gap 17.4; Aspartate Amino Transferase 19 U/L (15-37); BUN Creatinine Ratio 12.2; Bilirubin Total 0.2 mg/dL (0.2-1.0); Calcium 8.7 mg/dL (8.5-10.1); Carbon Dioxide 24.3 mmol/L (21.0-32.0); Chloride 106 mmol/L (98-107); Estimated GFR (African America >60 (>=60); Estimated GFR (Non-African Ame >60 (>=60); Globulin 4.1 g/dL; Glucose 126 mg/dL (74-106); Potassium 3.7 mmol/L (3.5-5.1); Sodium 144 mmol/L (136-145); Total Protein 7.4 g/dL (6.4-8.2)
[2023-11-23 14:27] LABS: Acetaminophen <2.0 ug/mL (10.0-30.0); Ethanol <3 mg/dL; Salicylate <2.8 mg/dL (<=19.9); Thyroid Stimulating Hormone 2.216 uIU/mL (0.358-3.740)
[2023-11-23 16:06] VITALS: BP 138/88; PULSE 84; RESP 18; O2SAT 98
== END 2023-11-23 17:08 | disposition home or self-care (01) ==
PROVIDERS: Physician Assistant; Emergency Provider Emergency Medicine
DX: F32.A Depression, unspecified (principal); Z79.84 Long term (current) use of oral hypoglycemic drugs; Z79.899 Other long term (current) drug therapy
CPT/HCPCS: 36415; 80053; 80179; 80307; 80320; 80329; 81003; 84443; 85025; 93005; 99285

== ENCOUNTER 2024-02-19 15:31 | Emergency (ER) | payer MEDICAID, SELFPAY ==
[2024-02-19 15:35] VITALS: BP 149/100; PULSE 96; TEMP 36.6; O2SAT 97; BMI 57.9
--- NOTE | 2024-02-19 15:44 | ED.PSYCH1 ---
HPI - Psych General Chief Complaint: Psychiatric Symptoms Stated Complaint: Suicidal Time Seen by Provider: 02/19/24 15:32 Source: Reports patient Mode of arrival: ambulance Limitations: Reports no limitations History of Present Illness HPI Narrative: 23-year-old female presents to the emergency department for suicidal isolations. She states she has thoughts of hurting herself and it started today after she was in an inflatable swimming pool. She claims that she cut her right arm with her earring. She does not always take her medications by her own admission. She does not complain of fever or any pain or any physical symptoms. Related Data Home Medications ?Medication ?Instructions ?Recorded ?Confirmed acetaminophen 325 mg capsule 1,000 mg PO Q4H PRN pain 07/11/23 02/19/24 buspirone 10 mg tablet 15 mg PO TID 07/11/23 02/19/24 docusate sodium 100 mg capsule 100 mg PO DAILY 07/11/23 02/19/24 (Col-Rite) levothyroxine 50 mcg tablet 50 mcg PO DAILY 07/11/23 02/19/24 loperamide 2 mg capsule 4 mg PO Q6H PRN loose stool 07/11/23 02/19/24 (Anti-Diarrheal (loperamide)) medroxyprogesterone 150 mg/mL 150 mg IM .every 90 days 07/11/23 02/19/24 intramuscular suspension metformin 500 mg tablet 1,000 mg PO BID 07/11/23 02/19/24 omeprazole 20 mg capsule,delayed 20 mg PO DAILY 07/11/23 02/19/24 release paliperidone 3 mg tablet,extended 3 mg PO BID 07/11/23 02/19/24 release 24 hr paliperidone palmitate 156 mg/mL 156 mg IM Q28D 07/11/23 02/19/24 intramuscular syringe (Invega Sustenna) prazosin 2 mg capsule 2 mg PO .qhs 07/11/23 02/19/24 victoza subcut DAILY 10/02/23 etodolac 500 mg tablet 500 mg PO Q12H PRN pain 02/19/24 02/19/24 hydroxyzine HCl 50 mg tablet 50 mg PO TID PRN anxiety 02/19/24 02/19/24 olopatadine 0.1 % eye drops 1 drp ophthalmic (eye) BID 02/19/24 02/19/24 polyethylene glycol 3350 17 17 g PO DAILY PRN constipation 02/19/24 02/19/24 gram/dose oral powder trazodone 50 mg tablet 50 mg PO TID PRN anxiety 02/19/24 02/19/24 Allergies Allergy/AdvReac Type Severity Reaction Status Date / Time No Known Drug Allergies Allergy Verified 11/14/23 19:27 Review of Systems ROS Narrative A ten point review of systems is negative except as noted above. PFSH PFSH Social History Smoking status: Never smoker Exam Narrative Exam Narrative: Nurses note and vital signs reviewed and patient is not hypoxic. General: The patient appears well and in no apparent distress. Patient is resting comfortably on cart. She is smiling. Skin: Warm, dry, no pallor noted. There is no rash noted. Head: Normocephalic, atraumatic Eye: Normal conjunctiva, no drainage Ears, Nose, Mouth, and Throat: oral mucosa is moist. Nares patent. Cardiovascular: Regular Rate and Rhythm Respiratory: Patient is in no distress, no accessory muscle use, lungs are clear to auscultation, no wheezing, rales or rhonchi Back: non-tender GI: Obese soft nontender Musculoskeletal: The patient has no evidence of calf tenderness, no pitting edema, symmetrical pulses noted bilaterally Neurological: Awake and alert Psychiatric: Cooperative Constitutional Vital Signs, click to edit/add: Last Vital Signs Temp 97.8 F 02/19/24 15:35 Pulse 96 H 02/19/24 15:35 Resp 16 02/19/24 15:35 BP 149/100 H 02/19/24 15:35 Pulse Ox 97 02/19/24 15:35 O2 Del Method Room Air 02/19/24 15:35 Course Vital Signs Vital signs: Vital Signs Temperature 97.8 F 02/19/24 15:35 Pulse Rate 96 H 02/19/24 15:35 Respiratory Rate 16 02/19/24 15:35 Blood Pressure 149/100 H 02/19/24 15:35 Pulse Oximetry 97 02/19/24 15:35 Oxygen Delivery Method Room Air 02/19/24 15:35 Temperature 97.8 F 02/19/24 15:35 Pulse Rate 96 H 02/19/24 15:35 Respiratory Rate 16 02/19/24 15:35 Blood Pressure 149/100 H 02/19/24 15:35 Pulse Oximetry 97 02/19/24 15:35 Oxygen Delivery Method Room Air 02/19/24 15:35 MDM - Psych MDM Narrative Medical decision making narrative: The patient's medical workup here is negative. She has been interviewed by mental health services and a safety plan has been put in place. She is able to be discharged. Differential Diagnosis Differential diagnosis: Likely suicidal ideation, depression and acute anxiety Lab Data Attestation: I reviewed the patient's lab results. Labs: Lab Results 02/19/24 02/19/24 Range/Units 15:50 15:53 WBC 11.2 H (4.0-11.0) 10^3/uL RBC 5.13 (4.20-5.40) 10^6/uL Hgb 13.9 (12.0-16.0) g/dL Hct 41.7 (36.0-48.0) % MCV 81.3 (81.0-99.0) fL MCH 27.1 (26.7-34.0) pg MCHC 33.3 (29.9-35.2) g/dL RDW 12.9 (11.0-15.0) % Plt Count 261 (150-450) 10^3/uL MPV 9.6 (9.5-13.5) fL Neut % (Auto) 55.5 (43.0-75.0) % Lymph % (Auto) 35.3 (20.5-60.0) % [place] % (Auto) 6.3 (1.7-12.0) % Eos % (Auto) 2.1 (0.9-7.0) % Baso % (Auto) 0.5 (0.2-2.0) % Neut # (Auto) 6.2 (1.4-6.5) 10^3/uL Lymph # (Auto) 4.0 H (1.2-3.8) 10^3/uL [place] # (Auto) 0.7 (0.3-0.8) 10^3/uL Eos # (Auto) 0.2 (0.0-0.7) 10^3/uL Baso # (Auto) 0.1 (0.0-0.1) 10^3/uL Abs Immat Gran (auto) 0.03 (0.00-0.03) 10^3/uL Imm/Tot Granulo (auto) 0.3 (0.0-0.5) % Sodium 138 (136-145) mmol/L Potassium 3.8 (3.5-5.1) mmol/L Chloride 104 (98-107) mmol/L Carbon Dioxide 22.8 (21.0-32.0) mmol/L Anion Gap 15.0 BUN 12.0 (7.0-18.0) mg/dL Creatinine 0.85 (0.55-1.02) mg/dL Est GFR ( Amer) >60 (>=60) Est GFR (Non-Af Amer) >60 (>=60) BUN/Creatinine Ratio 14.1 Glucose 85 (74-106) mg/dL Calcium 9.0 (8.5-10.1) mg/dL Serum HCG, Qual Negative (NEGATIVE) Urine Color Yellow (YELLOW) Urine Clarity Clear (CLEAR) Urine pH 6.0 (5.0-9.0) Ur Specific [place] >=1.030 A (1.005-1.025) Urine Protein Negative (NEG/TRACE) mg/dL Urine Glucose (UA) Negative (NEGATIVE) mg/dL Urine Ketones Negative (NEGATIVE) mg/dL Urine Occult Blood Negative (NEGATIVE) Urine Nitrite Negative (NEGATIVE) Urine Bilirubin Negative (NEGATIVE) Urine Urobilinogen 0.2 (0.2-1.0) EU/dL Ur Leukocyte Esterase Negative (NEGATIVE) Urine RBC 0-2 (0-2) #/HPF Urine WBC 0-2 A (NONE SEEN) #/HPF Ur Squamous Epith Cells Moderate A (NONE/RARE) #/LPF Urine Crystals None seen (None Seen) #/HPF Urine Bacteria Trace A (NONE SEEN) #/HPF Urine Casts None seen (NONE SEEN) #/LPF Urine Mucus Trace A (NONE SEEN) Salicylates <2.8 (<=19.9) mg/dL Urine Opiates Screen Negative (NEGATIVE) Ur Buprenorphine Scrn Negative (NEGATIVE) Ur Oxycodone Screen Negative (NEGATIVE) Urine Methadone Screen Negative (NEGATIVE) Acetaminophen <2.0 L (10.0-30.0) ug/mL Ur Barbiturates Screen Negative (NEGATIVE) U Tricyclic Antidepress Negative (NEGATIVE) Ur Phencyclidine Scrn Negative (NEGATIVE) Ur Amphetamines Screen Negative (NEGATIVE) U Methamphetamines Scrn Negative (NEGATIVE) U Benzodiazepines Scrn Negative (NEGATIVE) Urine Cocaine Screen Negative (NEGATIVE) U Cannabinoids Screen Negative (NEGATIVE) Ethanol Quant <3 mg/dL ECG Data Attestation: I personally reviewed and interpreted this ECG as follows: (EKG on my interpretation shows normal sinus rhythm without acute change and rate of 99) Discharge Plan Discharge Stand Alone Forms: Portal Instructions Chief Complaint: Psychiatric Symptoms Clinical Impression: Suicidal ideation Patient Disposition: Home, Self-Care Time of Disposition Decision: 18:42 Condition: Good Mode of Transportation: Private Vehicle Prescriptions / Home Meds: No Action docusate sodium [Col-Rite] 100 mg capsule 100 mg PO DAILY levothyroxine 50 mcg tablet 50 mcg PO DAILY medroxyprogesterone 150 mg/mL suspension 150 mg IM .every 90 days metformin 500 mg tablet 1,000 mg PO BID loperamide [Anti-Diarrheal (loperamide)] 2 mg capsule 4 mg PO Q6H PRN (Reason: loose stool) acetaminophen 325 mg capsule 1,000 mg PO Q4H PRN (Reason: pain) omeprazole 20 mg capsule,delayed release(DR/EC) 20 mg PO DAILY paliperidone 3 mg tablet extended release 24hr 3 mg PO BID prazosin 2 mg capsule 2 mg PO .qhs buspirone 10 mg tablet 15 mg PO TID Invega Sustenna 156 mg/mL syringe 156 mg IM Q28D Patient Comments: due 07/19 trazodone 50 mg tablet 50 mg PO TID PRN (Reason: anxiety) polyethylene glycol 3350 17 gram/dose powder 17 g PO DAILY PRN (Reason: constipation) hydroxyzine HCl 50 mg tablet 50 mg PO TID PRN (Reason: anxiety) olopatadine 0.1 % drops 1 drp OPHTHALMIC (EYE) BID etodolac 500 mg tablet 500 mg PO Q12H PRN (Reason: pain) victoza 1.8 mg auto-injector subcut DAILY Print Language: Nepali Instructions: Suicide Prevention (ED) Additional Instructions: Please take your medications regularly as prescribed. Referrals: Physician,Non-Staff, MD [Primary Care Provider] - 1 week
[2024-02-19 15:59] LABS: Basophils Absolute Auto 0.1 10^3/uL (0.0-0.1); Basophils Percent Auto 0.5 % (0.2-2.0); Eosinophils Absolute Auto 0.2 10^3/uL (0.0-0.7); Eosinophils Percent Auto 2.1 % (0.9-7.0); Hematocrit 41.7 % (36.0-48.0); Hemoglobin 13.9 g/dL (12.0-16.0); Immature Granulocytes Abs Auto 0.03 10^3/uL (0.00-0.03); Immature Granulocytes Pct Auto 0.3 % (0.0-0.5); Lymphocytes Percent Auto 35.3 % (20.5-60.0); Mean Corpuscular HGB Conc 33.3 g/dL (29.9-35.2); Mean Corpuscular Hemoglobin 27.1 pg (26.7-34.0); Mean Corpuscular Volume 81.3 fL (81.0-99.0); Mean Platelet Volume 9.6 fL (9.5-13.5); Monocytes Absolute Auto 0.7 10^3/uL (0.3-0.8); Monocytes Percent Auto 6.3 % (1.7-12.0); Neutrophils Absolute Auto 6.2 10^3/uL (1.4-6.5); Neutrophils Percent Auto 55.5 % (43.0-75.0); Platelet Count 261 10^3/uL (150-450); Red Blood Count 5.13 10^6/uL (4.20-5.40); Red Cell Distribution Width 12.9 % (11.0-15.0); White Blood Count 11.2 10^3/uL (4.0-11.0)
[2024-02-19 16:03] LABS: Bilirubin Urine NEGATIVE (NEGATIVE); Blood Urine NEGATIVE (NEGATIVE); Clarity Urine CLEAR (CLEAR); Color Urine YELLOW (YELLOW); Glucose Urine UA NEGATIVE (NEGATIVE); Ketones Urine NEGATIVE (NEGATIVE); Leukocyte Esterase Urine NEGATIVE (NEGATIVE); Nitrite Urine NEGATIVE (NEGATIVE); Protein Urine NEGATIVE (NEG/TRACE); Specific Gravity Urine >=1.030 (1.005-1.025); Urobilinogen Urine 0.2 EU/dL (0.2-1.0)
[2024-02-19 16:09] LABS: Bacteria Urine TRACE #/HPF (NONE SEEN); Mucus Urine TRACE (NONE SEEN); RBC Urine 0-2 #/HPF (0-2); Squamous Epithelial Cell Urine MODERATE #/LPF (NONE/RARE); WBC Urine 0-2 #/HPF (NONE SEEN)
[2024-02-19 16:10] LABS: Cast Seen? NONE SEEN #/LPF (NONE SEEN); Crystals Seen? None Seen #/HPF (None Seen)
[2024-02-19 16:13] LABS: Amphetamine Screen Urine NEGATIVE (NEGATIVE); Barbiturates Screen Urine NEGATIVE (NEGATIVE); Benzodiazepines Screen Urine NEGATIVE (NEGATIVE); Buprenorphine Screen Urine NEGATIVE (NEGATIVE); Cannabinoid Screen Urine NEGATIVE (NEGATIVE); Cocaine Screen Urine NEGATIVE (NEGATIVE); Methadone Screen Urine NEGATIVE (NEGATIVE); Methamphetamines Screen Urine NEGATIVE (NEGATIVE); Opiate Screen Urine NEGATIVE (NEGATIVE); Oxycodone Screen Urine NEGATIVE (NEGATIVE); Phencyclidine Screen Urine NEGATIVE (NEGATIVE); Tricyclic Antidepressant Urine NEGATIVE (NEGATIVE)
[2024-02-19 16:16] LABS: BUN Creatinine Ratio 14.1; Carbon Dioxide 22.8 mmol/L (21.0-32.0); Chloride 104 mmol/L (98-107); Estimated GFR (African America >60 (>=60); Estimated GFR (Non-African Ame >60 (>=60); Ethanol <3 mg/dL; Glucose 85 mg/dL (74-106); Potassium 3.8 mmol/L (3.5-5.1); Salicylate <2.8 mg/dL (<=19.9); Sodium 138 mmol/L (136-145)
[2024-02-19 16:18] LABS: Acetaminophen <2.0 ug/mL (10.0-30.0)
[2024-02-19 16:23] LABS: HCG Qualitative NEGATIVE (NEGATIVE)
--- NOTE | 2024-02-19 18:22 | ECG_ITS ---
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
[2024-02-19 18:49] VITALS: BP 146/99
== END 2024-02-19 21:05 | disposition home or self-care (01) ==
PROVIDERS: Emergency Provider Emergency Medicine
DX: R45.851 Suicidal ideations (principal); Z79.899 Other long term (current) drug therapy; Z79.890 Hormone replacement therapy
CPT/HCPCS: 36415; 80048; 80179; 80307; 80320; 80329; 81001; 84703; 85025; 93005; 99285